=== PATIENT | female | born 1940 | race Caucasian/White ===

== ENCOUNTER 2020-01-09 17:48 | Outpatient (REF) | payer MEDICARE, SELFPAY | END 2020-01-09 17:49 | disposition home or self-care (01) | LOC: HO.LAB 17:48 | PROVIDERS: PCP Internal Medicine; Visit Provider Urology | DX: R35.0 Frequency of micturition (principal); Z13.9 Encounter for screening, unspecified | CPT/HCPCS: 87086 ==

== ENCOUNTER → 2020-01-11 13:23 | Outpatient (BNVA) | payer MEDICARE, SELFPAY | PROVIDERS: PCP Internal Medicine; Visit Provider Urology | DX: Z76.89 Persons encountering health services in other specified circumstances (principal) | CPT/HCPCS: 99212 ==

== ENCOUNTER → 2020-03-12 11:08 | Outpatient (BNVA) | payer MEDICARE, SELFPAY | PROVIDERS: PCP Internal Medicine; Visit Provider Urology | DX: R39.15 Urgency of urination (principal); N32.81 Overactive bladder | CPT/HCPCS: Q3014 ==

== ENCOUNTER → 2020-04-16 15:16 | Outpatient (BNVA) | payer MEDICARE, SELFPAY | PROVIDERS: PCP Internal Medicine; Visit Provider Urology | DX: N32.81 Overactive bladder (principal) | CPT/HCPCS: 52287; 81002; 99212; J0585 ==

== ENCOUNTER → 2020-04-25 14:00 | Outpatient (BNVA) | payer MEDICARE, SELFPAY | PROVIDERS: PCP Internal Medicine; Visit Provider Internal Medicine Cardiovascular Disease | DX: I48.91 Unspecified atrial fibrillation (principal) | CPT/HCPCS: 93005; 99212 ==

== ENCOUNTER → 2020-04-30 14:04 | Outpatient (BNVA) | payer MEDICARE, SELFPAY | PROVIDERS: PCP Internal Medicine; Visit Provider Urology | DX: Z13.89 Encounter for screening for other disorder (principal) | CPT/HCPCS: Q3014 ==

== ENCOUNTER 2020-05-10 16:36 | Outpatient (REF) | payer MEDICARE, SELFPAY ==
[2020-05-10 18:20] LABS: Alanine Aminotransferase 10 U/L (0-31); Alkaline Phosphatase 74 U/L (39-117); Anion Gap 12 (12-20); Aspartate Amino Transferase 22 U/L (5-31); Bilirubin Total 0.8 mg/dL (0.0-1.0); Blood Urea Nitrogen 19 mg/dL (9-16); Calcium 9.5 mg/dL (8.4-10.2); Carbon Dioxide 30 mmol/L (22-29); Chloride 104 mmol/L (96-108); Cholesterol 257 mg/dL; Estimated Glomerular Filt Rate > 60; Glucose Fasting 79 mg/dL (60-99); HDL Cholesterol 72 mg/dL; LDL Cholesterol Calculated 169 mg/dl; Potassium 4.4 mmol/L (3.3-5.1); Sodium 142 mmol/L (135-145); Total Protein 6.2 g/dL (6.5-8.0); Triglycerides 82 mg/dL
[2020-05-12 02:51] LABS: LDL Cholesterol Direct 161 mg/dL (<100)
== END 2020-05-10 16:37 | disposition home or self-care (01) ==
LOC: HO.LAB 16:36
PROVIDERS: PCP Internal Medicine; Visit Provider Internal Medicine
DX: E78.9 Disorder of lipoprotein metabolism, unspecified (principal); F09 Unspecified mental disorder due to known physiological condition; F41.8 Other specified anxiety disorders; K21.9 Gastro-esophageal reflux disease without esophagitis; M19.90 Unspecified osteoarthritis, unspecified site; Z91.09 Other allergy status, other than to drugs and biological substances
CPT/HCPCS: 36415; 80048; 80053; 80061; 83721

== ENCOUNTER → 2020-06-26 13:09 | Outpatient (BNVA) | payer MEDICARE, SELFPAY | PROVIDERS: PCP Internal Medicine; Visit Provider Internal Medicine Pulmonary Disease | DX: J45.40 Moderate persistent asthma, uncomplicated (principal); Z91.09 Other allergy status, other than to drugs and biological substances | CPT/HCPCS: 99212 ==

== ENCOUNTER 2020-08-01 16:44 | Outpatient (REF) | payer MEDICARE, SELFPAY ==
--- NOTE | ~2020-08-01 | XR_ITS ---
EXAMINATION: XR ELBOW, LEFT CLINICAL INFORMATION: Pain left elbow COMPARISON: None TECHNIQUE: Left elbow is imaged in 3 views. FINDINGS: There is no fracture, dislocation, or elbow capsular effusion. No destructive process or periostitis. No focal joint narrowing or erosive change. No epicondylar or olecranon spurring. XR/XR elbow LT min 3V IMPRESSION: Unremarkable left elbow.
== END 2020-08-01 16:45 | disposition home or self-care (01) ==
LOC: HO.HMGCX 16:44
PROVIDERS: PCP Internal Medicine; Visit Provider Hospitalist
DX: M25.522 Pain in left elbow (principal)
CPT/HCPCS: 73080

== ENCOUNTER → 2020-09-11 14:39 | Outpatient (BNVA) | payer MEDICARE, SELFPAY | PROVIDERS: PCP Internal Medicine; Referring Provider Internal Medicine; Visit Provider Internal Medicine Cardiovascular Disease | DX: R06.00 Dyspnea, unspecified (principal); I48.0 Paroxysmal atrial fibrillation; I42.9 Cardiomyopathy, unspecified; I89.0 Lymphedema, not elsewhere classified; Z79.01 Long term (current) use of anticoagulants | CPT/HCPCS: 99212 ==

== ENCOUNTER → 2020-10-02 09:31 | Outpatient (REF) | payer MEDICARE, SELFPAY ==
--- NOTE | ~2020-10-02 | NM_ITS ---
Lexiscan Myocardial perfusion study Indication: Shortness of breath, assess for coronary disease and ischemia Technique: The patient was brought in for a Lexiscan perfusion study on 10/02/2020 and was injected 0.4 mg of Lexiscan intravenously. Within a minute of this injection 35 mCi of sestamibi was given intravenously. Images were obtained using the SPECT gamma camera interlaced with the gating device. Images were obtained in supine position. Resting perfusion study was performed on 10/03/2020. Patient was administered 35 mCi of sestamibi intravenously at rest. Images were then obtained in supine position. Total DLP 112mGy-cm. Images were processed with the software and compared side to side in short axis, horizontal long axis and vertical long axis views. Findings: Raw acquisition was reviewed. The stress perfusion study showed mildly diminished tracer uptake in the basal to mid septum. There is improvement with CT attenuation correction. The gated study shows normal LV systolic function with calculated LVEF of > 70%. LV cavity is normal in size. The gated study shows normal wall thickening and contraction of segments. Resting study shows mildly diminished tracer uptake in the basal to mid septum that seems to improve with CT attenuation correction. Gating at rest reveals normal wall motion with ejection fraction at 53%. The findings are consistent with no reversible defects. Mild fixed defect in the basal to mid septum possibly artifactual. NY/NY cardiolite stress test Impression: 1. Myocardial perfusion imaging study shows no definitive evidence of any ischemia or infarction. 2. Gated LVEF is 69% during stress and 53% during rest. Correlate with echocardiogram. 3. Transient ischemic dilatation not present. EKG component of the test reported separately.
--- NOTE | 2020-10-02 09:00 | CA_ITS ---
Acquisition Time: 2020-10-02 10:01:19 Total Exercise Time: 00:02:00 Test Indications: SOB, R/O CAD Medications: Protocol: LEXISCAN Max HR: 108 BPM 76% of Pred: 142 BPM Max BP: 126/076 mmHG Max Work Load: 1.6 METS Pharmacological stress test with Lexiscan injection, while walking on treadmill, with fatigue and sob, no chest discomfort, without arrythmia, with normotensive response to injection, with nondiagnostic EKG for ischemia. Nuclear images pending. Test reviewed with Dr Hernandez. Referred By: Eran Butler Overread By: VENANCIO HSU
== END ==
LOC: HO.CARD 09:31
PROVIDERS: PCP Internal Medicine; Visit Provider Internal Medicine Cardiovascular Disease
DX: R06.00 Dyspnea, unspecified (principal)
CPT/HCPCS: 78452; 93017; A9500; J0280; J2785

== ENCOUNTER → 2020-10-22 14:10 | Outpatient (REF) | payer MEDICARE, SELFPAY ==
--- NOTE | 2020-10-22 14:10 | CA_ITS ---
Transthoracic Echocardiogram Patient (Last, First, Middle): Harshad TownsendMadelyn B Gender: Female Date of : 1940 Age: 79 Procedure Date: 10/22/2020 Procedure Type: Transthoracic Echocardiogram Location: OP Height: 170.18 cm Weight: 92.99 kg BSA: 2.04 m2 Heart Rate: bpm BP: 134 / 60 mmHg Ship Loader: Referring MD: Eran Butler MD Symptoms: I42.9 - Cardiomyopathy, unspecified Study Quality: Fair ECG Rhythm: Atrial Fibrillation Conclusions: - Normal left ventricular size and systolic function. - Diastolic function is normal for age. - Normal right ventricular cavity size and systolic function. Findings Left Ventricle Normal left ventricular size and systolic function. There is mildly increased left ventricular wall thickness. The visually estimated ejection fraction is between 55-60%. There is no evidence of regional wall motion abnormalities. Diastolic function is normal for age. Right Ventricle Normal right ventricular cavity size and systolic function. Atria The left atrium is normal in size. The right atrium is likely dilated. Aortic Valve Normal aortic valve structure and function. There is no aortic valve stenosis. There is trace (trivial) aortic valve regurgitation. Mitral Valve The mitral valve appears normal. There is trace mitral valve regurgitation. There is no mitral valve stenosis. Pulmonic Valve The pulmonic valve is likely normal. Tricuspid Valve Normal tricuspid valve structure and function. There is trace tricuspid valve regurgitation. Moderately elevated right atrial pressure. There is no evidence of pulmonary hypertension. Great Vessels There is mild dilatation of the ascending aorta measuring 3.30 cm. The visualized portions of the pulmonary artery and branches are normal. Venous The inferior vena cava is dilated and collapses greater than 50% with inspiration. Pericardium/Pleural There is no evidence of pericardial effusion. Measurements 2D Linear Measurements IVSd: 1.01 0.6-0.9/0.6-1.0 cm LVIDd: 3.25 3.9-5.3/4.2-5.9 cm LVIDd Index: 1.59 2.4-3.2/2.2-3.1 cm/m2 LVIDs: 2.23 2.0-3.6 cm LVPWd: 1.23 0.7-1.1 cm Ao Root: 3.50 2.1-3.5 cm LA Diam: 4.00 2.7-3.8/3.0-4.0 cm LAIDs Index: 1.96 1.5-2.3 cm/m2 LV Mass: 136.39 67-162/88-224 g LV Mass Index: 66.86 43-95/49-115 g/m2 LVOT Diam: 2.00 3.0+(-)1.3 cm Mitral Valve MV Pk E: 1.04 MV Decel Time: 117.00 E'Lateral: 14.70 E'Medial: 8.16 E/E' Med: 12.70 E/E' Lat: 7.10 PHT: 34.00 MVA PHT: 6.47 Decel [place]: 8.85 Aortic Valve AoV Pk Carlton: 1.31 AoV Mn [place]: 0.93 AoV VTI: 0.27 AoV Pk Grad: 7.00 Aov Mn Grad: 4.00 ANDREW Cont.VTI: 2.29 LVOT LVOT Pk [place]: 1.01 LVOT Mn [place]: 0.75 LVOT VTI: 0.20 LVOT Pk Grad: 4.00 LVOT Mn Grad: 3.00 LVOT Diam: 2.00 LVOT Area: 3.14 Diastolic Function MV Pk E: 1.04 E'Medial: 8.16 E/E' Med: 12.70 E' Laterial: 14.70 E/E' Lat: 7.10 Tricuspid Valve TR Pk Carlton: 2.45 TR Pk Grad: 24.00 RVSP: 32.00 Great Vessels Aorta Ao Root-2D: 3.50 2.0-3.7 cm Ao Asc: 3.30 2.1-3.4 cm Pulmonary Valve PV Pk Carlton: 1.17 Peak PV Grad: 5.00 Updated in Other Vendor System with Status of Final Eran Butler MD electronically signed on 10/23/2020 10:22:50 AM with status of Final
== END ==
LOC: HO.CARD 14:10
PROVIDERS: PCP Internal Medicine; Visit Provider Internal Medicine Cardiovascular Disease
DX: I42.9 Cardiomyopathy, unspecified (principal); R06.00 Dyspnea, unspecified
CPT/HCPCS: 93306

== ENCOUNTER → 2020-11-27 14:44 | Outpatient (BNVA) | payer MEDICARE, SELFPAY | PROVIDERS: PCP Internal Medicine; Referring Provider Internal Medicine; Visit Provider Nurse Practitioner Family | DX: I48.91 Unspecified atrial fibrillation (principal); R06.00 Dyspnea, unspecified | CPT/HCPCS: 99212 ==

== ENCOUNTER 2020-12-03 12:38 | Outpatient (REF) | payer MEDICARE, SELFPAY ==
[2020-12-03 13:01] LABS: MANUAL DIFF FLAG NO
[2020-12-03 13:31] LABS: Basophils Percent Auto 0.7 % (0-2); Eosinophils Absolute Auto 0.2 X10*3/uL (0.0-0.4); Eosinophils Percent Auto 3.6 % (0-4); Hematocrit 42.4 % (37-47); Hemoglobin 13.6 g/dl (12.0-16.0); Imm Gran Abs Auto 0.02 X10*3/uL (0.00-0.03); Imm Gran Pct Auto 0.3 % (0.0-0.4); Lymphocytes Absolute Auto 1.3 X10*3/uL (1.2-4.9); Lymphocytes Percent Auto 21.3 % (20-40); Mean Corpuscular HGB Conc 32.1 g/dl (31.0-35.0); Mean Corpuscular Hemoglobin 31.7 pg (27.0-33.0); Mean Corpuscular Volume 98.8 fL (80-98); Mean Platelet Volume 10.8 fL (9.4-12.3); Monocytes Absolute Auto 0.8 X10*3/uL (0.1-1.2); Monocytes Percent Auto 12.2 % (2-11); Neutrophils Absolute Auto 3.8 X10*3/uL (2.0-8.3); Neutrophils Percent Auto 61.9 % (45-73); Platelet Count 256 X10*3/uL (160-400); Red Blood Count 4.29 X10*6/uL (4.20-5.50); Red Cell Distribution Width 14.6 % (11.0-16.0); White Blood Count 6.2 X10*3/uL (4.8-10.8)
[2020-12-03 14:01] LABS: Alanine Aminotransferase 13 U/L (0-31); Alkaline Phosphatase 79 U/L (39-117); Anion Gap 10 (12-20); Aspartate Amino Transferase 24 U/L (5-31); Bilirubin Total 0.6 mg/dL (0.0-1.0); Blood Urea Nitrogen 14 mg/dL (9-16); Calcium 9.9 mg/dL (8.4-10.2); Carbon Dioxide 31 mmol/L (22-29); Chloride 106 mmol/L (96-108); Estimated Glomerular Filt Rate > 60; Glucose Random 104 mg/dL (60-115); Potassium 4.6 mmol/L (3.3-5.1); Sodium 142 mmol/L (135-145); Total Protein 6.6 g/dL (6.5-8.0)
== END 2020-12-03 12:39 | disposition home or self-care (01) ==
LOC: HO.LAB 12:38
PROVIDERS: PCP Internal Medicine; Visit Provider Internal Medicine
DX: E66.9 Obesity, unspecified (principal); F41.8 Other specified anxiety disorders; E78.9 Disorder of lipoprotein metabolism, unspecified; M19.90 Unspecified osteoarthritis, unspecified site; Z91.09 Other allergy status, other than to drugs and biological substances
CPT/HCPCS: 36415; 80053; 85025

== ENCOUNTER 2020-12-16 08:44 | Outpatient (REF) | payer MEDICARE, SELFPAY | END 2020-12-16 08:45 | disposition home or self-care (01) | LOC: HO.LAB 08:44 | PROVIDERS: PCP Internal Medicine | DX: R39.15 Urgency of urination (principal); R35.0 Frequency of micturition; N39.0 Urinary tract infection, site not specified | CPT/HCPCS: 87086; 99212 ==

== ENCOUNTER → 2021-01-28 15:02 | Outpatient (BNVA) | payer MEDICARE, SELFPAY | PROVIDERS: PCP Internal Medicine; Visit Provider Urology | DX: N32.81 Overactive bladder (principal) | CPT/HCPCS: 52287; 99212 ==

== ENCOUNTER → 2021-02-12 11:04 | Outpatient (BNVA) | payer MEDICARE, SELFPAY | PROVIDERS: PCP Internal Medicine; Visit Provider Urology | DX: N32.81 Overactive bladder (principal) | CPT/HCPCS: Q3014 ==

== ENCOUNTER 2021-04-29 12:52 | Outpatient (REF) | payer MEDICARE, SELFPAY ==
--- NOTE | ~2021-04-29 | MM_ITS ---
EXAMINATION: MM SCREENING DIGITAL BREAST TOMOSYNTHESIS, BILATERAL CLINICAL INFORMATION: Screening. Asymptomatic. The lifetime risk of breast cancer based on the Tyrer-Cuzick Model is 3%. COMPARISON: Mammography: 04/18/2018, 04/05/2017, 02/07/2016 TECHNIQUE: Digital breast tomosynthesis is performed in both the craniocaudal and mediolateral oblique views along with computer-aided detection (CAD). Synthesized 2D images are generated from the tomosynthesis. FINDINGS: There are scattered areas of fibroglandular density (ACR BI-RADS breast composition Category b). There are no significant masses, abnormal calcifications, or other abnormalities. Parenchymal pattern is similar to prior studies. Again, there are scattered bilateral benign round and some ductal secretory calcifications. The axilla and skin contours are unremarkable. There are no significant changes. MM/MM tomosynthesis screening BI IMPRESSION: No mammographic evidence of malignancy. ASSESSMENT: BI-RADS 1: Negative RECOMMENDATION: Routine annual mammography screening. This patient's information was entered into a reminder system with a target due date for their next mammogram.
== END 2021-04-29 12:53 | disposition home or self-care (01) ==
LOC: HO.MAMMO 12:52
PROVIDERS: PCP Internal Medicine; Visit Provider Internal Medicine
DX: Z12.31 Encounter for screening mammogram for malignant neoplasm of breast (principal)
CPT/HCPCS: 77063; 77067

== ENCOUNTER → 2021-05-01 13:43 | Outpatient (BNVA) | payer MEDICARE, SELFPAY | PROVIDERS: PCP Internal Medicine; Referring Provider Internal Medicine; Visit Provider Nurse Practitioner Family | DX: I48.91 Unspecified atrial fibrillation (principal); R06.00 Dyspnea, unspecified | CPT/HCPCS: 99212 ==

== ENCOUNTER → 2021-05-06 08:32 | Outpatient (REF) | payer MEDICARE, SELFPAY ==
--- NOTE | 2021-05-06 08:35 | HM_ITS ---
* Total monitoring time 3 days and 9 hours. * Underlying rhythm is atrial fibrillation. Average rate 98/Min; range 65 to 172/Min. * About 31% of the time, rate > 100/Min. * No significant pauses. * Rare ventricular ectopy with minimal burden. * No clear patient symptoms described. * Overall, less than optimal rate control of atrial fibrillation. MTDD
== END ==
LOC: HO.CARD 08:32
PROVIDERS: PCP Internal Medicine; Visit Provider Nurse Practitioner Family
DX: I48.91 Unspecified atrial fibrillation (principal)
CPT/HCPCS: 93242

== ENCOUNTER → 2021-05-29 09:21 | Outpatient (BNVA) | payer MEDICARE, SELFPAY | PROVIDERS: PCP Internal Medicine; Visit Provider Urology | DX: N32.81 Overactive bladder (principal) | CPT/HCPCS: 52000; 52287; J0585 ==

== ENCOUNTER → 2021-08-29 13:29 | Outpatient (BNVA) | payer MEDICARE, SELFPAY | PROVIDERS: PCP Internal Medicine; Visit Provider Urology | DX: N32.81 Overactive bladder (principal) | CPT/HCPCS: Q3014 ==

== ENCOUNTER 2021-09-08 13:57 | Inpatient (IN) | payer MEDICARE, SELFPAY ==
[2021-09-08] VITALS (15 sets, daily range): BP systolic 121–158; BP diastolic 56–105; PULSE 101–130; RESP 13–20; TEMP 36.1–36.8; O2SAT 94–100; BMI 32.8; BMI 33.7
--- NOTE | 2021-09-08 14:31 | ECG_ITS ---
Test Reason : abdominal pain Blood Pressure : / mmHG Vent. Rate : 123 BPM Atrial Rate : 000 BPM P-R Int : 000 ms QRS Dur : 070 ms QT Int : 276 ms P-R-T Axes : 000 011 263 degrees QTc Int : 395 ms Atrial fibrillation with rapid ventricular response Nonspecific T wave abnormality Abnormal ECG When compared to the previous EKG of Afib present Referred By: Bell Casper Electronically Signed By:Eran Butler
--- NOTE | 2021-09-08 14:35 | ED.GIBLEED ---
HPI - GI Bleed General Chief complaint: GI Bleed Stated complaint: VOMITING Time Seen by Provider: 09/08/21 14:17 Source: patient Mode of arrival: ambulatory Limitations: no limitations History of Present Illness HPI Narrative: Patient comes to the emergency room complaining of vomiting blood and rectal bleeding. Patient states that yesterday she was in her normal state of health. This morning around 06:00, she woke up, went to the bathroom to have a bowel movement, noticed that she had blood in the stool, also vomited blood at the same time. Patient states that she was too weak to stand up and go back to her bedroom. Patient states that she states seated in the toilet for almost 3 hours, both because she had multiple episodes of vomiting and bloody bowel movements and also she was too weak to sit up. Patient denies abdominal pain. Patient denies URI or UTI symptoms. Patient is on Xarelto for atrial fibrillation. Related Data Home Medications Medication Instructions Recorded Confirmed omeprazole 40 mg capsule,delayed 40 mg PO DAILY 11/20/19 05/01/21 release donepezil 10 mg tablet 10 mg PO DAILY 11/27/20 05/01/21 Previous Rx's Medication Instructions Recorded citalopram 20 mg tablet 20 mg PO DAILY #90 tabs 02/26/20 albuterol sulfate 90 mcg/actuation 2 puff inhalation Q4-6H PRN 06/26/20 aerosol inhaler (Ventolin HFA) bronchospasm 90 days #3 ea fluticasone propionate 44 2 puff inhalation BID 90 days #3 ea 06/26/20 mcg/actuation HFA aerosol inhaler rivaroxaban 20 mg tablet (Xarelto) 20 mg PO DAILY 90 days #90 tabs 10/08/20 amoxicillin 500 mg-potassium 1 tab PO BID 5 days #10 tabs 03/14/21 clavulanate 125 mg tablet (Augmentin) gemfibrozil 600 mg tablet 600 mg PO DAILY #90 tabs 04/15/21 metoprolol succinate 50 mg 75 mg PO DAILY 90 days #135 tabs 05/26/21 tablet,extended release 24 hr fluticasone propionate 50 1 spray intranasal DAILY 30 days 08/11/21 mcg/actuation nasal #16 grams spray,suspension sulfamethoxazole 800 1 tab PO BID 5 days #10 tabs 07/08/22 mg-trimethoprim 160 mg tablet (Bactrim DS) Allergies Allergy/AdvReac Type Severity Reaction Status Date / Time lorazepam Allergy Unknown unknown Verified 08/29/21 13:30 pantoprazole Allergy Unknown NAUSEA Verified 08/29/21 13:30 amoxicillin [AMOXICILLIN] AdvReac Intermediate NAUSEA/VOMI Verified 08/29/21 13:30 TING Review of Systems Review of Systems: Constitutional : No Weight loss, No Fever, No Chills, No Night Sweats, No Fatigue, No Malaise ENT/Mouth : No Hearing loss, No Ear Pain, No Nasal Congestion, No Sinus Pain, No Hoarseness, No sore throat, No Rhinorrhea, No Swallowing Difficulty Eyes: No Eye Pain, No Swelling, No Redness, No Foreign Body, No Discharge, No Vision Changes Cardiovascular : No Chest Pain, No SOB, No Dyspnea on Exertion, No Orthopnea, No Edema, No Palpitations Respiratory : No Cough, No Sputum, No Wheezing, No Smoke Exposure, No Dyspnea Gastrointestinal : Complaining of nausea, vomiting blood, bloody bowel movements, abdominal cramping no significant pain. Genitourinary : no irregular bleeding, No Dysuria, No Urinary Frequency, No Hematuria, No Urinary Incontinence, No Urgency, No Flank Pain, No Urinary Flow Changes, No Hesitancy Musculoskeletal : No joint pain, No Myalgias, No Joint Swelling Skin : No Skin Lesions, No rash Neuro : No Weakness, No Numbness, No Paresthesias, No Loss of Consciousness, complaining of dizziness and lightheadedness, no headache Psych : No Anxiety/Panic, No Depression, No SI/HI/AH/VH, No Social Issues, Heme/Lymph: No Bruising, No Bleeding,No Lymphadenopathy Endocrine : No Polyuria, No Polydipsia, No Temperature Intolerance [facility] Past Medical History Medical History Atrial fibrillation Moderate persistent asthma Family History Family History Father No problems noted. Mother Cerebral brain hemorrhage Social History Social History Housing: House Alcohol intake: current Alcohol intake frequency: holidays/special occasions only Patient Tobacco Use Status: Never used Tobacco e-Cigarette/Vaping Use: Never Used Second Hand Smoke Exposure: Yes Advance Directives: No Advance Directives Information Provided: No Current occupational status: retired Physical Exam Vital Signs: Vital Signs: Last Vital Signs Temp 97.5 F 09/08/21 16:39 Pulse 121 H 09/08/21 16:39 Resp 16 09/08/21 16:39 BP 141/82 H 09/08/21 16:39 Pulse Ox 95 09/08/21 14:42 O2 Del Method 09/08/21 14:42 BMI result Body Mass Index 32.8 Const: Other: Appearance: Alert. Oriented X3. No acute distress. Eyes: Pupils equal, round and reactive to light. ENT: Pharynx normal. Neck: Normal inspection. Neck supple. No lymph nodes noted. No crepitus CVS: Normal heart rate and rhythm. Pulses normal. Normal S1 and S2 Respiratory: No respiratory distress. Breath sounds normal. No Wheezing. No rales Abdomen: Soft and nontender. No rigidity. No distention. Digital rectal exam shows maroon-colored stool Skin: Skin warm and dry. Patient is pale. Normal skin turgor. Extremities: +3 pitting edema, patient has chronic lymphedema bilaterally Neuro: Oriented X 3. No motor deficit. No sensory deficit. Moving all extremities. No slurred speech. CN 2 through 12 grossly intact Psych: calm, cooperative, normal affect Course Course Course Narrative: All of patient's labs are pending. I discussed with the patient the benefits versus risks of blood transfusion. Patient states that if the occasion falls worth, she is willing to receive blood. Patient signed the consent for blood transfusion. Given the severity of the GI bleed, we will go ahead and start Kcentra, 3 units of blood. Also, Dr. Hernández recommends to start 2 units of FFP, and IV vitamin K 10 mg. Patient also received octreotide, and pantoprazole. Patient will likely go to the endoscopy suite tonight Patient's blood pressure remains stable, 141/82, pulse 121. Patient being admitted. MDM - GI Bleed Lab Data Result diagrams: 09/08/21 14:48 09/08/21 14:47 Labs: Lab Results 09/08/21 09/08/21 09/08/21 Range/Units 14:46 14:46 14:47 WBC (4.8-10.8) X10*3/uL RBC (4.20-5.50) X10*6/uL Hgb (12.0-16.0) g/dl Hct (37.0-47.0) % MCV (80.0-98.0) fL MCH (27.0-33.0) pg MCHC (31.0-35.0) g/dl RDW (11.0-16.0) % Plt Count (160-400) X10*3/uL MPV (9.4-12.3) fL Immature Gran % (Auto) (0.0-0.4) % Neut % (Auto) (45-73) % Lymph % (Auto) (20-40) % [place] % (Auto) (2-11) % Eos % (Auto) (0-4) % Baso % (Auto) (0-2) % Lymph # (Auto) (1.2-4.9) X10*3/uL [place] # (Auto) (0.1-1.2) X10*3/uL Eos # (Auto) (0.0-0.4) X10*3/uL Baso # (Auto) (0.0-0.2) X10*3/uL Abs Immat Gran (auto) (0.00-0.03) X10*3/uL Absolute Neuts (auto) (2.0-8.3) x10*3/uL Absolute Nucleated RBC (0.0-0.012) X10*3/uL Nucleated RBC % (auto) (0.0-0.2) /100WBC Smear Tech's Comments PT (10.0-13.1) SEC INR (0.9-1.1) Sodium 139 (135-145) mmol/L Potassium 4.4 (3.3-5.1) mmol/L Chloride 107 (96-108) mmol/L Carbon Dioxide 24 (22-29) mmol/L Anion Gap 12 (12-20) BUN 53 H (9-16) mg/dL Creatinine 0.84 (0.5-1.4) mg/dL Estim Creat Clear Calc 64.3 Estimated GFR > 60 Random Glucose 136 H (60-115) mg/dL Calcium 8.8 D (8.4-10.2) mg/dL Magnesium 1.7 (1.6-2.6) mg/dL Total Bilirubin 0.4 (0.0-1.0) mg/dL Direct Bilirubin 0.2 (0.0-0.5) mg/dL AST 20 (5-31) U/L ALT 12 (0-31) U/L Alkaline Phosphatase 64 (39-117) U/L Total Creatine Kinase (26-140) U/L Troponin I High Sens < 3.5 (<3.5-17.0) ng/L Total Protein 5.5 L (6.5-8.0) g/dL Albumin 3.7 (3.5-5.0) g/dL Lipase 7 L (8-78) U/L Stool Occult Blood (NEGATIVE) COVID-19 ([place]) (Negative) COVID-19 Clin Com Blood Type A Negative Antibody Screen NEGATIVE Crossmatch See Detail 09/08/21 09/08/21 09/08/21 Range/Units 14:48 14:48 14:48 WBC 8.3 (4.8-10.8) X10*3/uL RBC 2.39 L (4.20-5.50) X10*6/uL Hgb 6.8 L* (12.0-16.0) g/dl Hct 21.7 L (37.0-47.0) % MCV 90.8 (80.0-98.0) fL MCH 28.5 (27.0-33.0) pg MCHC 31.3 (31.0-35.0) g/dl RDW 14.2 (11.0-16.0) % Plt Count 275 (160-400) X10*3/uL MPV 10.5 (9.4-12.3) fL Immature Gran % (Auto) 0.6 H (0.0-0.4) % Neut % (Auto) 90.5 H (45-73) % Lymph % (Auto) 6.5 L (20-40) % [place] % (Auto) 2.3 (2-11) % Eos % (Auto) 0.0 (0-4) % Baso % (Auto) 0.1 (0-2) % Lymph # (Auto) 0.5 L (1.2-4.9) X10*3/uL [place] # (Auto) 0.2 (0.1-1.2) X10*3/uL Eos # (Auto) 0.0 (0.0-0.4) X10*3/uL Baso # (Auto) 0.0 (0.0-0.2) X10*3/uL Abs Immat Gran (auto) 0.05 H (0.00-0.03) X10*3/uL Absolute Neuts (auto) 7.5 (2.0-8.3) x10*3/uL Absolute Nucleated RBC 0.000 (0.0-0.012) X10*3/uL Nucleated RBC % (auto) 0.0 (0.0-0.2) /100WBC Smear Tech's Comments VERIFIED PT 19.3 H (10.0-13.1) SEC INR 1.6 H (0.9-1.1) Sodium (135-145) mmol/L Potassium (3.3-5.1) mmol/L Chloride (96-108) mmol/L Carbon Dioxide (22-29) mmol/L Anion Gap (12-20) BUN (9-16) mg/dL Creatinine (0.5-1.4) mg/dL Estim Creat Clear Calc Estimated GFR Random Glucose (60-115) mg/dL Calcium (8.4-10.2) mg/dL Magnesium (1.6-2.6) mg/dL Total Bilirubin (0.0-1.0) mg/dL Direct Bilirubin (0.0-0.5) mg/dL AST (5-31) U/L ALT (0-31) U/L Alkaline Phosphatase (39-117) U/L Total Creatine Kinase (26-140) U/L Troponin I High Sens (<3.5-17.0) ng/L Total Protein (6.5-8.0) g/dL Albumin (3.5-5.0) g/dL Lipase (8-78) U/L Stool Occult Blood (NEGATIVE) COVID-19 ([place]) Negative (Negative) COVID-19 Clin Com See Note Blood Type Antibody Screen Crossmatch 09/08/21 09/08/21 Range/Units 14:48 14:51 WBC (4.8-10.8) X10*3/uL RBC (4.20-5.50) X10*6/uL Hgb (12.0-16.0) g/dl Hct (37.0-47.0) % MCV (80.0-98.0) fL MCH (27.0-33.0) pg MCHC (31.0-35.0) g/dl RDW (11.0-16.0) % Plt Count (160-400) X10*3/uL MPV (9.4-12.3) fL Immature Gran % (Auto) (0.0-0.4) % Neut % (Auto) (45-73) % Lymph % (Auto) (20-40) % [place] % (Auto) (2-11) % Eos % (Auto) (0-4) % Baso % (Auto) (0-2) % Lymph # (Auto) (1.2-4.9) X10*3/uL [place] # (Auto) (0.1-1.2) X10*3/uL Eos # (Auto) (0.0-0.4) X10*3/uL Baso # (Auto) (0.0-0.2) X10*3/uL Abs Immat Gran (auto) (0.00-0.03) X10*3/uL Absolute Neuts (auto) (2.0-8.3) x10*3/uL Absolute Nucleated RBC (0.0-0.012) X10*3/uL Nucleated RBC % (auto) (0.0-0.2) /100WBC Smear Tech's Comments PT (10.0-13.1) SEC INR (0.9-1.1) Sodium (135-145) mmol/L Potassium (3.3-5.1) mmol/L Chloride (96-108) mmol/L Carbon Dioxide (22-29) mmol/L Anion Gap (12-20) BUN (9-16) mg/dL Creatinine (0.5-1.4) mg/dL Estim Creat Clear Calc Estimated GFR Random Glucose (60-115) mg/dL Calcium (8.4-10.2) mg/dL Magnesium (1.6-2.6) mg/dL Total Bilirubin (0.0-1.0) mg/dL Direct Bilirubin (0.0-0.5) mg/dL AST (5-31) U/L ALT (0-31) U/L Alkaline Phosphatase (39-117) U/L Total Creatine Kinase 190 H (26-140) U/L Troponin I High Sens (<3.5-17.0) ng/L Total Protein (6.5-8.0) g/dL Albumin (3.5-5.0) g/dL Lipase (8-78) U/L Stool Occult Blood POSITIVE (NEGATIVE) COVID-19 ([place]) (Negative) COVID-19 Clin Com Blood Type Antibody Screen Crossmatch Critical Care Time Critical Care Time Critical Care Time: Yes Total Critical Care Time: 60 Attestation: I have personally provided critical care time. Time includes review of lab data, radiology results, discussion with consultants, and monitoring for potential decompensation. Intervention performed as documented. Discharge Plan Discharge Clinical Impression: Acute GI bleeding Prescriptions: No Action citalopram 20 mg tablet 20 mg PO DAILY Qty: 90 0RF Xarelto 20 mg tablet 20 mg PO DAILY 90 Days Qty: 90 3RF gemfibrozil 600 mg tablet 600 mg PO DAILY Qty: 90 1RF metoprolol succinate 50 mg tablet extended release 24 hr 75 mg PO DAILY 90 Days Qty: 135 3RF fluticasone propionate 50 mcg/actuation spray,suspension 1 spray intranasal DAILY 30 Days Qty: 16 2RF sulfamethoxazole-trimethoprim [Bactrim DS] 800-160 mg tablet 1 tab PO BID 5 Days Qty: 10 0RF Rx Instructions: start two days before procedure, the day of procedure, and two days after procedure. donepezil 10 mg tablet 10 mg PO DAILY amoxicillin-pot clavulanate [Augmentin] 500-125 mg tablet 1 tab PO BID 5 Days Qty: 10 0RF albuterol sulfate [Ventolin HFA] 90 mcg/actuation HFA aerosol inhaler 2 puff inhalation Q4-6H PRN (Reason: bronchospasm) 90 Days Qty: 3 4RF fluticasone propionate 44 mcg/actuation HFA aerosol inhaler 2 puff inhalation BID 90 Days Qty: 3 4RF omeprazole 40 mg capsule,delayed release(DR/EC) 40 mg PO DAILY
[2021-09-08 15:04] LABS: Basophils Percent Auto 0.1 % (0-2); Hematocrit 21.7 % (37.0-47.0); Imm Gran Abs Auto 0.05 X10*3/uL (0.00-0.03); Imm Gran Pct Auto 0.6 % (0.0-0.4); Lymphocytes Absolute Auto 0.5 X10*3/uL (1.2-4.9); Lymphocytes Percent Auto 6.5 % (20-40); MANUAL DIFF FLAG SCAN; Mean Corpuscular HGB Conc 31.3 g/dl (31.0-35.0); Mean Corpuscular Hemoglobin 28.5 pg (27.0-33.0); Mean Corpuscular Volume 90.8 fL (80.0-98.0); Mean Platelet Volume 10.5 fL (9.4-12.3); Monocytes Absolute Auto 0.2 X10*3/uL (0.1-1.2); Monocytes Percent Auto 2.3 % (2-11); Neutrophils Absolute Auto 7.5 x10*3/uL (2.0-8.3); Neutrophils Percent Auto 90.5 % (45-73); OBS Int Ctl Valid YES; Platelet Count 275 X10*3/uL (160-400); Red Blood Count 2.39 X10*6/uL (4.20-5.50); Red Cell Distribution Width 14.2 % (11.0-16.0); SCAN SMEAR FLAG 1; White Blood Count 8.3 X10*3/uL (4.8-10.8)
[2021-09-08 15:07] LABS: Hemoglobin 6.8 g/dl (12.0-16.0)
[2021-09-08 15:10] LABS: INTERNATIONAL NORM RATIO 1.6 (0.9-1.1); Prothrombin Time 19.3 SEC (10.0-13.1)
[2021-09-08 15:11] LABS: OBS1 POSITIVE (NEGATIVE)
[2021-09-08 15:15] LABS: Alanine Aminotransferase 12 U/L (0-31); Albumin Level 3.7 g/dL (3.5-5.0); Alkaline Phosphatase 64 U/L (39-117); Anion Gap 12 (12-20); Aspartate Amino Transferase 20 U/L (5-31); Bilirubin Direct 0.2 mg/dL (0.0-0.5); Bilirubin Total 0.4 mg/dL (0.0-1.0); Blood Urea Nitrogen 53 mg/dL (9-16); Calcium 8.8 mg/dL (8.4-10.2); Carbon Dioxide 24 mmol/L (22-29); Chloride 107 mmol/L (96-108); Creatinine Clr Calc Pharmacy 64.3; Estimated Glomerular Filt Rate > 60; Glucose Random 136 mg/dL (60-115); Lipase 7 U/L (8-78); Magnesium 1.7 mg/dL (1.6-2.6); Potassium 4.4 mmol/L (3.3-5.1); Sodium 139 mmol/L (135-145); Total Protein 5.5 g/dL (6.5-8.0)
[2021-09-08 15:16] LABS: COVID-19 Test Negative (Negative)
[2021-09-08] MEDS: Pantoprazole Sodium 40 MG/10 ML VIAL 80 MG IVPUSH (15:17)
[2021-09-08] MEDS: ondansetron HCL 4 MG/2 ML VIAL IVPUSH (15:17)
[2021-09-08 15:18] LABS: Troponin-I High Sensitivity < 3.5 ng/L (<3.5-17.0)
[2021-09-08] MEDS: 0.9 % Sodium Chloride 1,000 ML 999 ML IVCONT (15:18)
[2021-09-08] MEDS: Octreotide Acetate 100 MCG/ML AMPUL 50 MCG IVPUSH (15:18)
[2021-09-08 15:43] LABS: SLIDE REVIEW VERIFIED
[2021-09-08] MEDS: Hum Prothrombin Cplx(PCC)4Fact 2,500 UNIT in Container,Empty 0 ML 480 UNIT IV (15:50)
[2021-09-08] MEDS: Phytonadione (Vit K1) 10 MG in 0.9 % Sodium Chloride 50 ML 51 MG IV (16:13)
[2021-09-08] MEDS: Prochlorperazine Edisylate 10 MG/2 ML VIAL IVPUSH (16:23)
--- NOTE | 2021-09-08 16:42 | PM.EVENT ---
Event Note Date of Service: 09/08/21 Event Note: Imp: 80 yo female on Xarelto for A.fib presenting with hematemesis and melena since early this morning. Prior to this she was not having any particular GI complaints and was feeling well. She is on chronic omeprazole in regard to a history of GERD and previous duodenal ulcer, although without GI bleeding. She uses only occasional Aleve. She denies any other Aspirin nor NSAID use, smoking nor significant EtOH use. Her Hgb was 6.8 on arrival. Her PT was 19 and her BUN was 53. Diff dx: UGI bleed due to ulcer disease, erosive gastritis, esophagitis, Dieulafoy lesion, or AVM's. Rec: Kcentra for attempted reversal of Xarelto, Vit K & FFP for elevated PT/INR, PRBC's, IV PPI, NPO, serial Hgb, and F/U labs. Upper endoscopy with MAC once stabilized. Full consent obtained from her for this, including risks of bleeding and perforation. She was comfortable with this plan. Thanks
--- NOTE | 2021-09-08 16:53 | MHC.SHP ---
Pre-Procedural Eval Section A Date of Service: 09/08/21 The patient is an INPATIENT: Yes The History & Physical has been completed within 30 days and I have reviewed it.: Yes Section B Chief Complaint: VOMITING Allergies: Allergies Allergy/AdvReac Type Severity Reaction Status Date / Time lorazepam Allergy Unknown unknown Verified 08/29/21 13:30 pantoprazole Allergy Unknown NAUSEA Verified 08/29/21 13:30 amoxicillin [AMOXICILLIN] AdvReac Intermediate NAUSEA/VOMI Verified 08/29/21 13:30 TING Plan I have reviewed the history and physical and performed a pertinent physical examination on my patient. No changes have occurred unless specified.
--- NOTE | 2021-09-08 17:00 | PC.NURSE ---
PT TOLERATING TRANSFUSION WELL. DENIES DIZZINESS, SOB, CP AT REST. ALSO DENYING ABD PAIN. AFIB ON MONITOR BETWEEN 104- 125 BPM. VS OTHERWISE STABLE.
--- NOTE | 2021-09-08 17:25 | P.HPHOSP_ITS ---
History of Present Illness Date of Service: 09/08/21 Chief Complaint: rectal bleed, coffee ground emesis 80 yo female with chroni AFIB on Xarelto who has been in her usual until around 6 AM when she started having bouts of sergei and h hematemesis, she felt well yesterday, she no abdominal pain, she takes no NSAID or steroid, no history of anemia. She was noted to have hemoglobin on 6.8, tachycardic but no h ypOtension. She is given Kcentra, Vit K and FFP, RBC, IV PPI, IVF and is being prep for EGD today. Review of Systems Review of Systems: Gen: no fever Resp: no sob, no cough CV: no chest, no BULL, no leg edema GI: + n/v, no abd pain Neuro: No confusion Yes all other systems are reviewed and are negative [facility] Medical History Chronic a-fib Moderate persistent asthma Family History Father No problems noted. Mother Cerebral brain hemorrhage Social History Household Members: None Housing: House Do you presently have visiting nurse or other home services: No Alcohol intake: current Alcohol intake frequency: a few times a month Patient Tobacco Use Status: Never used Tobacco e-Cigarette/Vaping Use: Never Used Second Hand Smoke Exposure: Yes Current occupational status: retired Meds Allergies Allergy/AdvReac Type Severity Reaction Status Date / Time lorazepam Allergy Unknown unknown Verified 08/29/21 13:30 pantoprazole Allergy Unknown NAUSEA Verified 08/29/21 13:30 amoxicillin [AMOXICILLIN] AdvReac Intermediate NAUSEA/VOMI Verified 08/29/21 13:30 TING Active Medications: Current Medications Pantoprazole Sodium 80 mg/ (Sodium Chloride) 100 mls @ 10 mls/hr IV .Q10H [facility] Pharmacy Consult (Consult Rx Perform Med Rec) 1 each MISCELLANE ONCE PRN PRN Reason: Consult order Home Medications Medication Instructions Recorded Confirmed Last Taken Type omeprazole 40 mg capsule,delayed 40 mg PO DAILY 11/20/19 09/08/21 09/07/21 History release donepezil 10 mg tablet 10 mg PO DAILY 11/27/20 09/08/21 09/07/21 History Tumeric 1,000 mg PO DAILY 09/08/21 09/08/21 Unknown History coQ10 (ubiquinol) 200 mg capsule 200 mg PO DAILY 09/08/21 09/08/21 Unknown History cod liver oil 1 cap PO DAILY 09/08/21 09/08/21 Unknown History glucosamine sulfate 500 mg tablet 500 mg PO DAILY 09/08/21 09/08/21 Unknown His tory (Glucosamine) Physical Exam Vital Signs and Narrative: Vital Signs: Last Vital Signs Temp 97.6 F 09/08/21 16:58 Pulse 107 H 09/08/21 16:58 Resp 20 09/08/21 16:58 BP 134/79 09/08/21 16:58 Pulse Ox 95 09/08/21 14:42 O2 Del Method 09/08/21 14:42 BMI result Body Mass Index 32.8 Const: Other: Constitutional: Alert, in no distress Mental Status: Oriented to person, place and time. Eyes: Pupils are equal, round and reactive to light. Ear, Nose and Throat: Oropharynx clear, mucous membranes moist. Ears and nose without eformities. Trachea midline. Respiratory: Clear to auscultation. No wheezing, rales or rhonchi. Cardiovascular: S1 S2 irhregular, tachycardic. No murmurs, rubs or gallops Gastrointestinal: Abdomen soft, non-tender, non-distended. Normal bowel sounds.? Neurologic: Cranial nerves II-XII grossly intact. No focal neurological deficits. Moves all extremities spontaneously.? Skin: No rashes or lesions.? Musculoskeletal: No cyanosis or clubbing. Psychiatric: Normal mood and affect? Results Labs CBC and Chem 7: 09/09/21 08:33 09/09/21 04:59 Labs: Laboratory Results - last 24 hr 09/08/21 09/08/21 09/08/21 14:46 14:46 14:47 MCV MCH MCHC RDW Plt Count MPV Immature Gran % (Auto) Neut % (Auto) Lymph % (Auto) [place] % (Auto) Eos % (Auto) Baso % (Auto) Lymph # (Auto) [place] # (Auto) Eos # (Auto) Baso # (Auto) Abs Immat Gran (auto) Absolute Neuts (auto) Absolute Nucleated RBC Nucleated RBC % (auto) Smear Tech's Comments PT INR Anion Gap 12 Estim Creat Clear Calc 64.3 Estimated GFR > 60 Random Glucose 136 H Calcium 8.8 D Magnesium 1.7 Total Bilirubin 0.4 Direct Bilirubin 0.2 AST 20 ALT 12 Alkaline Phosphatase 64 Total Creatine Kinase Troponin I High Sens < 3.5 Total Protein 5.5 L Albumin 3.7 Lipase 7 L Stool Occult Blood COVID-19 ([place]) COVID-19 Clin Com Blood Type A Negative Antibody Screen NEGATIVE Crossmatch See Detail 09/08/21 09/08/21 09/08/21 14:48 14:48 14:48 MCV 90.8 MCH 28.5 MCHC 31.3 RDW 14.2 Plt Count 275 MPV 10.5 Immature Gran % (Auto) 0.6 H Neut % (Auto) 90.5 H Lymph % (Auto) 6.5 L [place] % (Auto) 2.3 Eos % (Auto) 0.0 Baso % (Auto) 0.1 Lymph # (Auto) 0.5 L [place] # (Auto) 0.2 Eos # (Auto) 0.0 Baso # (Auto) 0.0 Abs Immat Gran (auto) 0.05 H Absolute Neuts (auto) 7.5 Absolute Nucleated RBC 0.000 Nucleated RBC % (auto) 0.0 Smear Tech's Comments VERIFIED PT 19.3 H INR 1.6 H Anion Gap Estim Creat Clear Calc Estimated GFR Random Glucose Calcium Magnesium Total Bilirubin Direct Bilirubin AST ALT Alkaline Phosphatase Total Creatine Kinase Troponin I High Sens Total Protein Albumin Lipase Stool Occult Blood COVID-19 ([place]) Negative COVID-19 Clin Com See Note Blood Type Antibody Screen Crossmatch 09/08/21 09/08/21 14:48 14:51 MCV MCH MCHC RDW Plt Count MPV Immature Gran % (Auto) Neut % (Auto) Lymph % (Auto) [place] % (Auto) Eos % (Auto) Baso % (Auto) Lymph # (Auto) [place] # (Auto) Eos # (Auto) Baso # (Auto) Abs Immat Gran (auto) Absolute Neuts (auto) Absolute Nucleated RBC Nucleated RBC % (auto) Smear Tech's Comments PT INR Anion Gap Estim Creat Clear Calc Estimated GFR Random Glucose Calcium Magnesium Total Bilirubin Direct Bilirubin AST ALT Alkaline Phosphatase Total Creatine Kinase 190 H Troponin I High Sens Total Protein Albumin Lipase Stool Occult Blood POSITIVE COVID-19 ([place]) COVID-19 Clin Com Blood Type Antibody Screen Crossmatch Assessment and Plan (1) Acute blood loss anemia: Status: Acute (2) Acute GI bleeding: Status: Acute (3) Chronic a-fib: Status: Acute Plan 80/ with AFIB on Xarelto here with Melena and hematochezia, acute blood loss anemia tachycardia reflecting anemia 1/ Acute blood loss anemia, upper and possibly lower GI bleed -s/p Kcentra, Vit K, FFP, Octreotide, IV PPI -for EGD tonight -serial H/H 2/ Chronic AFIB--tachycardia d/t anemia -obviously no Xarelto, can consider med for rate control after appropriately volume resuscitated stated with IV fluid and blood product DVT prophylaxis: compression device Admission to span at least 2 midnight for GI bleed work, blood product transfusion, hemodynamic monitoring Quality Stroke Does the patient have a stroke diagnosis?: No VTE Prior VTE?: No VTE Risk Level:: Medical - moderate - high VTE Device Contraindication: N/A - Device Ordered VTE Drug Contraindication: Treatment Not Tolerated
--- NOTE | 2021-09-08 17:46 | PC.NURSE ---
UNABLE TO DOCUMENT INITIATION OF FFP IN [facility]. VERIFIED UNIT WITH GENERAL INTERNTATI PANDA.
--- NOTE | 2021-09-08 17:49 | PC.NURSE ---
FFP TRANSFUSION INITIATED AT 1736H
--- NOTE | 2021-09-08 17:54 | PHA.MEDREC ---
MED REC COMPLETE, NO ISSUES Pharmacy Consult ? Medication Reconciliation Pharmacy has completed the medication reconciliation.
--- NOTE | 2021-09-08 17:58 | P.CONAN_ITS ---
HPI - Anesthesia Eval Consult details Narrative: acute GI bleeding PMFSH Active Problems Active Problems: All Active Problems (Updated 09/08/21 @ 17:31 by Nathan Jones MD) Chronic a-fib (Acute) Acute blood loss anemia (Acute) Acute GI bleeding (Acute) Cellulitis (Acute) Skin lesion (Acute) Non-cardiac chest pain (Acute) Lymphedema (Acute) Compulsive buying (Acute) Medicare annual wellness visit, initial (Acute) Breast screening (Acute) Moderate persistent asthma (Acute) Atrial fibrillation (Acute) BULL (dyspnea on exertion) (Acute) Left elbow pain (Acute) Lymphedema (Acute) Obesity (Acute) Environmental allergies (Acute) Chronic GERD (Acute) Mild cognitive disorder (Acute) Depression with anxiety (Acute) Lipid disorder (Acute) Arthrosis (Acute) Urinary urgency (Acute) Frequency of micturition (Acute) Recurrent UTI (Acute) Overactive bladder (Acute) Past Medical History Medical History (Updated 09/08/21 @ 17:31 by Nathan Jones MD) Chronic a-fib Moderate persistent asthma Functional capacity: independent ambulation Patient : No Family History Family History Father No problems noted. Mother Cerebral brain hemorrhage Family history of problems with anesthesia: No Surgical History History of Problems with Anesthesia: No Social History Social History Housing: House Alcohol intake: current Alcohol intake frequency: a few times a month Patient Tobacco Use Status: Never used Tobacco e-Cigarette/Vaping Use: Never Used Second Hand Smoke Exposure: Yes Use of substances other than those prescribed or required for medical reasons: No Are you DNR?: No Advance Directives: No Advance Directives Information Provided: No Patient : No Current occupational status: retired Meds Allergies Allergy/AdvReac Type Severity Reaction Status Date / Time lorazepam Allergy Unknown unknown Verified 08/29/21 13:30 pantoprazole Allergy Unknown NAUSEA Verified 08/29/21 13:30 amoxicillin [AMOXICILLIN] AdvReac Intermediate NAUSEA/VOMI Verified 08/29/21 13:30 TING Active Medications: Current Medications Acetaminophen (Acetaminophen 325 Mg Tablet) 650 mg PO Q6H PRN PRN Reason: Pain, Mild (Pain Scale 1-3) Pantoprazole Sodium 80 mg/ (Sodium Chloride) 100 mls @ 10 mls/hr IV .Q10H JORGE Dextrose/Sodium Chloride (D51/2ns) 1,000 mls @ 100 mls/hr IVCONT .Q10H JORGE Melatonin (Melatonin 3 Mg Tablet) 6 mg PO BEDTIME PRN PRN Reason: Insomnia Ondansetron HCl (Ondansetron Hcl 4 Mg/2 Ml Vial) 4 mg IVPUSH Q8H PRN PRN Reason: Nausea and Vomiting Pharmacy Consult (Consult Rx Perform Med Rec) 1 each MISCELLANE ONCE PRN PRN Reason: Consult order Sodium Chloride (0.9 % Sodium Chloride Flush 3 Ml Syringe) 3 ml IVFLUSH QSHIFT [facility] Home Medications Medication Instructions Recorded Confirmed Last Taken Type omeprazole 40 mg capsule,delayed 40 mg PO DAILY 11/20/19 09/08/21 09/07/21 History release donepezil 10 mg tablet 10 mg PO DAILY 11/27/20 09/08/21 09/07/21 History Tumeric 1,000 mg PO DAILY 09/08/21 09/08/21 Unknown History coQ10 (ubiquinol) 200 mg capsule 200 mg PO DAILY 09/08/21 09/08/21 Unknown History cod liver oil 1 cap PO DAILY 09/08/21 09/08/21 Unknown History glucosamine sulfate 500 mg tablet 500 mg PO DAILY 09/08/21 09/08/21 Unknown History (Glucosamine) Exam Exam Date and Time: September 08, 2021 1758 Height,Weight and Vital Signs: Height 5 ft 7 in Weight 95.254 kg Last Vital Signs Temp 97.9 F 09/08/21 17:36 Pulse 116 H 09/08/21 17:36 Resp 18 09/08/21 17:36 BP 158/89 H 09/08/21 17:36 Pulse Ox 95 09/08/21 14:42 O2 Del Method 09/08/21 14:42 Pertinent Lab Results Pertinent Lab Results: Laboratory Tests 09/08/21 09/08/21 09/08/21 14:46 14:46 14:47 WBC RBC Hgb Hct MCV MCH MCHC RDW Plt Count MPV Immature Gran % (Auto) Neut % (Auto) Lymph % (Auto) [place] % (Auto) Eos % (Auto) Baso % (Auto) Lymph # (Auto) [place] # (Auto) Eos # (Auto) Baso # (Auto) Abs Immat Gran (auto) Absolute Neuts (auto) Absolute Nucleated RBC Nucleated RBC % (auto) Smear Tech's Comments PT INR Sodium 139 Potassium 4.4 Chloride 107 Carbon Dioxide 24 Anion Gap 12 BUN 53 H Creatinine 0.84 Estim Creat Clear Calc 64.3 Estimated GFR > 60 Random Glucose 136 H Calcium 8.8 D Magnesium 1.7 Total Bilirubin 0.4 Direct Bilirubin 0.2 AST 20 ALT 12 Alkaline Phosphatase 64 Total Creatine Kinase Troponin I High Sens < 3.5 Total Protein 5.5 L Albumin 3.7 Lipase 7 L Stool Occult Blood COVID-19 ([place]) COVID-[employer] Com Blood Type A Negative Antibody Screen NEGATIVE Crossmatch See Detail 09/08/21 09/08/21 09/08/21 14:48 14:48 14:48 WBC 8.3 RBC 2.39 L Hgb 6.8 L* Hct 21.7 L MCV 90.8 MCH 28.5 MCHC 31.3 RDW 14.2 Plt Count 275 MPV 10.5 Immature Gran % (Auto) 0.6 H Neut % (Auto) 90.5 H Lymph % (Auto) 6.5 L [place] % (Auto) 2.3 Eos % (Auto) 0.0 Baso % (Auto) 0.1 Lymph # (Auto) 0.5 L [place] # (Auto) 0.2 Eos # (Auto) 0.0 Baso # (Auto) 0.0 Abs Immat Gran (auto) 0.05 H Absolute Neuts (auto) 7.5 Absolute Nucleated RBC 0.000 Nucleated RBC % (auto) 0.0 Smear Tech's Comments VERIFIED PT 19.3 H INR 1.6 H Sodium Potassium Chloride Carbon Dioxide Anion Gap BUN Creatinine Estim Creat Clear Calc Estimated GFR Random Glucose Calcium Magnesium Total Bilirubin Direct Bilirubin AST ALT Alkaline Phosphatase Total Creatine Kinase Troponin I High Sens Total Protein Albumin Lipase Stool Occult Blood COVID-19 ([place]) Negative [employer] See Note Blood Type Antibody Screen Crossmatch 09/08/21 09/08/21 14:48 14:51 WBC RBC Hgb Hct MCV MCH MCHC RDW Plt Count MPV Immature Gran % (Auto) Neut % (Auto) Lymph % (Auto) [place] % (Auto) Eos % (Auto) Baso % (Auto) Lymph # (Auto) [place] # (Auto) Eos # (Auto) Baso # (Auto) Abs Immat Gran (auto) Absolute Neuts (auto) Absolute Nucleated RBC Nucleated RBC % (auto) Smear Tech's Comments PT INR Sodium Potassium Chloride Carbon Dioxide Anion Gap BUN Creatinine Estim Creat Clear Calc Estimated GFR Random Glucose Calcium Magnesium Total Bilirubin Direct Bilirubin AST ALT Alkaline Phosphatase Total Creatine Kinase 190 H Troponin I High Sens Total Protein Albumin Lipase Stool Occult Blood POSITIVE COVID-19 ([place]) COVID-19 Clin Com Blood Type Antibody Screen Crossmatch Airway Mallampati Class: I TM Dist: >3cm Neck ROM: Full Loose/Missing/Broken Teeth: No Heart: IRR Lungs: CTA Assessment and Plan Assessment Anesthesia Assessment: Anesthesia Plan Discussed and Chart Reviewed Final Anesthetic Review Family History of Problems with Anesthesia: No History of Problems with Anesthesia: No NPO: Yes ASA Class: II, III and Emergency Final Preanesthetic Review: Meds/Allgs Chart Reviewed, Consent Obtained/Reviewed and Anes Risks/Benef Reviewed Patient Risk: Intermediate Procedure Risk: Low Anesthetic Plan Anesthetic Plan: MAC: Disposition: Standard PACU
--- NOTE | 2021-09-08 17:59 | PHA.MEDREC ---
MED REC COMPLETE, NO ISSUES Pharmacy Consult ? Medication Reconciliation Pharmacy has completed the medication reconciliation.
--- NOTE | 2021-09-08 17:59 | PC.NURSE ---
pt tolerating transfusions very well. still unable to document.
--- NOTE | 2021-09-08 18:22 | PC.NURSE ---
ffp infused, pt to go to OR.
--- NOTE | 2021-09-08 19:55 | CONS_ITS ---
DATE OF SERVICE: 09/08/2021 REASON FOR CONSULTATION: GI bleeding. HISTORY OF PRESENT ILLNESS: This is a 80-year-old female who was well up until this morning when she developed the onset of melena, hematemesis, and weakness. Prior to today, she had been feeling well. She is on chronic Xarelto in relation to atrial fibrillation. She does describe using occasional Aleve, but certainly not on a daily basis. She does not use any aspirin, other NSAIDs, tobacco, nor any significant amounts of alcohol. The patient does take chronic omeprazole in relation to chronic reflux. She has undergone a previous upper endoscopy in [address] Dalton for evaluation of some reflux. This revealed evidence of erosive esophagitis, hiatal hernia, gastritis, and duodenal ulcer, which did not appear to be particularly large nor bleeding. Biopsies at that time were negative for H pylori and Best esophagus. I last saw her in 2020. In January of 2019, she underwent a colonoscopy with me that was negative other than some diverticulosis and hemorrhoids. There was no inflammatory bowel disease, but biopsies did reveal microscopic colitis. At that time, she was having significant diarrhea and responded well to a course of budesonide. Up until today, she has been feeling well from a GI standpoint and general. She enjoys a good appetite. She denies any significant heartburn on her daily omeprazole. She denies any previous nausea nor vomiting. She has not noticed any abdominal pain nor jaundice. Prior to today, her bowel movements have been regular without any significant diarrhea, hematochezia, nor melena. CURRENT MEDICATIONS: At home include citalopram, Advair, gemfibrozil, metoprolol, omeprazole, Xarelto. PAST MEDICAL HISTORY: Atrial fibrillation. Asthma. She describes lymphedema of her lower extremities. Microscopic colitis. Erosive esophagitis. Duodenal ulcer. Gastritis with biopsies negative for H pylori. Negative colonoscopy in 2019 other than the finding of the microscopic colitis. She denies any history of DE, but does have atrial fibrillation. She has had a TIA. She denies any history of stroke. She denies any history of diabetes, nor kidney disease. Her surgical history is negative. She also has history of hypertension and depression. SOCIAL HISTORY: As above. She is a . She is retired. FAMILY HISTORY: Negative for colon cancer, inflammatory bowel disease, nor ulcer disease. REVIEW OF SYSTEMS: CONSTITUTIONAL: Up until today, she has been feeling well with good energy and good appetite. SKIN: No rash. No pruritus. CARDIAC: No chest pain. PULMONARY: No cough. No hemoptysis. GI: As above. PHYSICAL EXAMINATION: GENERAL: The patient is a pleasant, pale, alert female. SKIN: Warm and dry. Nonjaundiced. HEENT: Anicteric sclerae. CARDIAC: Normal S1, S2. ABDOMEN: Soft, nondistended, nontender. EXTREMITIES: Do reveal bilateral pretibial edema. LABORATORY DATA: White blood cell count 8.3, hemoglobin 6.8, MCV 91, platelets 275,000. PT 19.3 with INR 1.6. Normal electrolytes. BUN 53, creatinine 0.8. Normal liver profile, lipase of 7. IMPRESSION: Given the patient's clinical history, this seems quite consistent with an upper GI bleed. I suspect this represents bleeding from something such as ulcer disease, significant esophagitis, significant gastritis, Caro Hernández tear, or something such as a Dieulafoy lesion. At this point, she appears to be stable. I would agree with the current management of trying to reverse her Xarelto with Kcentra, a trial of vitamin K and FFP to try to normalize her PT with INR, and transfusion of packed red blood cells for her significant anemia. I would keep her on IV PPI and follow her laboratories closely. Once things have been accomplished in regard to the transfusion of blood products and medication, I would then recommend an upper endoscopy with monitored anesthesia care later today. Full consent has been obtained from her for this, including risks of bleeding and perforation. She was comfortable with this plan. Thank you for this consultation. MD MAYANK Bansal/KEENAN / [id number] CHER
[2021-09-08 20:54] LABS: Hematocrit 23.2 % (37.0-47.0); Hemoglobin 7.3 g/dl (12.0-16.0)
[2021-09-08] MEDS: Pantoprazole Sodium 80 MG in 0.9 % Sodium Chloride 80 ML 10 MG IV (21:14)
[2021-09-08] MEDS: 0.9 % Sodium Chloride Flush 3 ML SYRINGE IVFLUSH (21:15)
[2021-09-08] MEDS: Sucralfate Oral Suspension 1 GM/10 ML ORAL.SUSP PO (21:33)
[2021-09-08] MEDS: Dextrose 5 % and 0.45 % NaCl 1,000 ML 100 ML IVCONT (22:42)
--- NOTE | 2021-09-08 23:55 | PM.OP ---
Brief Operative Note Date of Service: 09/08/21 Pre-op diagnosis: UGI Bleed Post-op diagnosis: other (Proximal small ?gastric ulcer vs. ?Dieulafoy lesion, large hiatal hernia, GERD) Procedure: EGD with placement of 4 Resolution clips and injection with 1:10,000 Epinephrine Surgeon: Aries Hernández Anesthesia: MAC Was an Epoxy Coatings Installer used for this Procedure?: No Estimated blood loss (mL): 2.0 Pathology: none sent Condition: stable Disposition: PACU
--- NOTE | 2021-09-08 23:58 | PM.EVENT ---
Event Note Date of Service: 09/08/21 Event Note: GI-EGD-Full note dictated Findings: 1. Small, approximately 5 mm lesion on a fold on the posterior gastric wall, just beneath the hiatal hernia, at 38cm. The lesion appeared to have had some central ulceration and surrounding erythema, but no bleeding nor visible vessel. This was the only area of suspicion in regard to a potential source of blood loss. Therefore, I applied 4 clips to the lesion along the fold with good deployment and good hemostasis. I also injected a total of 7cc of 1:10,000 Epi into the immediate surrounding tissue with good blanching of mucosa. 2.There was coffee grounds material throughout the stomach, but no active bleeding nor red blood was seen. 3.The hiatal hernia was large and its mucosa appeared normal, as did the duodenum, remainder of the stomach, and the esophagus. Rec: IV PPI infusion, Sucralfate suspension, NPO overnight and then clear liquids 7/20 AM if stable. F/U labs in AM. Hold all blood thinners, including her Xarelto. Thanks
[2021-09-09] VITALS (12 sets, daily range): BP systolic 101–132; BP diastolic 58–81; PULSE 77–95; RESP 16–20; TEMP 36.4–37.1; O2SAT 96–98
[2021-09-09 00:27] LABS: Hemoglobin 6.9 g/dl (12.0-16.0)
[2021-09-09 05:07] LABS: MANUAL DIFF FLAG NO
[2021-09-09 05:08] LABS: Basophils Percent Auto 0.4 % (0-2); Eosinophils Percent Auto 0.4 % (0-4); Hematocrit 23.3 % (37.0-47.0); Hemoglobin 7.6 g/dl (12.0-16.0); Imm Gran Abs Auto 0.04 X10*3/uL (0.00-0.03); Imm Gran Pct Auto 0.5 % (0.0-0.4); Lymphocytes Absolute Auto 1.2 X10*3/uL (1.2-4.9); Lymphocytes Percent Auto 14.9 % (20-40); Mean Corpuscular HGB Conc 32.6 g/dl (31.0-35.0); Mean Corpuscular Hemoglobin 30.3 pg (27.0-33.0); Mean Corpuscular Volume 92.8 fL (80.0-98.0); Mean Platelet Volume 10.4 fL (9.4-12.3); Monocytes Absolute Auto 0.8 X10*3/uL (0.1-1.2); Monocytes Percent Auto 9.7 % (2-11); Neutrophils Percent Auto 74.1 % (45-73); Platelet Count 186 X10*3/uL (160-400); Red Blood Count 2.51 X10*6/uL (4.20-5.50); Red Cell Distribution Width 14.5 % (11.0-16.0); White Blood Count 8.1 X10*3/uL (4.8-10.8)
[2021-09-09 05:31] LABS: Blood Urea Nitrogen 31 mg/dL (9-16); Calcium 8.1 mg/dL (8.4-10.2); Creatinine Clr Calc Pharmacy 80.5; Estimated Glomerular Filt Rate > 60; Glucose Fasting 117 mg/dL (60-99)
--- NOTE | 2021-09-09 05:32 | OP_ITS ---
SURGEON: Aries Hernández MD INDICATIONS: The patient presents for evaluation of upper GI bleeding. Full consent has been obtained from her for this, including risks of bleeding and perforation. PREOPERATIVE DIAGNOSIS: Upper gastrointestinal bleeding. POSTOPERATIVE DIAGNOSIS: PROCEDURE PERFORMED: Esophagogastroduodenoscopy with placement of 4 Resolution clips and sclerotherapy using epinephrine in a dilution of 1:10,000. ESTIMATED BLOOD LOSS: COMPLICATIONS: ANESTHESIA: Monitored anesthesia care. ASSISTANTS: SPECIMENS: POSTOPERATIVE DIAGNOSES: Upper gastrointestinal bleeding, small proximal gastric lesion consistent with possibly small ulcer and/or Dieulafoy lesion, large hiatal hernia. DESCRIPTION OF PROCEDURE: The patient was placed in the left lateral decubitus position. The Olympus video gastroscope was passed in the posterior oropharynx and upper esophagus under direct vision. The scope was passed slowly to the distal esophagus. The gastroesophageal junction appeared at 30 cm and appeared normal. There was no esophagitis nor varices. The scope entered the stomach. There was a large hiatal hernia noted. The scope was advanced to the pylorus. Throughout the stomach, including the hiatal hernia, was coffee-grounds material. There was no sign of any active bleeding nor fresh blood in the stomach. The duodenum was cannulated to the descending portion. The duodenum including the bulb appeared normal without mass or ulceration. There was no blood nor coffee-grounds material in the duodenum. I spent a considerable amount of time lavaging the stomach and inspecting for any lesion that would account for her bleeding. In the proximal portion of the stomach at 38 cm from the incisors and just beneath the hiatal hernia, was a small approximately 5 mm lesion on a gastric fold. This was on the posterior wall. It had what appeared to be some central ulceration and surrounding erythema. There was no visible vessel nor bleeding. This was irrigated without any sign of bleeding. The remainder of the endoscopy was normal without any sign of other ulcer disease, angiodysplasias, esophagitis, nor any esophageal disease that would account for her bleeding. Given the only finding being that of the above described small lesion in the proximal stomach, I did opt to place four Resolution clips on the suspicious area with good deployment and good hemostasis. I then proceeded to use a total of 7 cc of epinephrine to inject the tissue right around the suspicious lesion. There was good blanching and good hemostasis. After further observation and irrigation, there was no bleeding and the procedure was then terminated. She tolerated the procedure well and was returned to the recovery area in stable condition. IMPRESSION: Suspicious lesion in the proximal stomach consistent with the possible source of bleeding. This may represent a small gastric ulcer or possibly an underlying Dieulafoy lesion. I would recommend that she be continued on her IV PPI infusion and I shall also start her on Carafate. I will follow her hemoglobin closely. She will have followup laboratories in the morning. Her diet will be advanced as tolerated. She should remain off her Xarelto and all other blood thinners for the time being. MD MAYANK Bansal/KEENAN / [id number] MTDD
[2021-09-09 05:42] LABS: Anion Gap 12 (12-20); Carbon Dioxide 23 mmol/L (22-29); Chloride 109 mmol/L (96-108); Potassium 3.5 mmol/L (3.3-5.1); Sodium 140 mmol/L (135-145)
[2021-09-09 09:01] LABS: Hematocrit 24.9 % (37.0-47.0); Hemoglobin 8.1 g/dl (12.0-16.0)
[2021-09-09 09:10] LABS: Prothrombin Time 11.7 SEC (10.0-13.1)
--- NOTE | 2021-09-09 10:28 | P.PNIM_ITS ---
Subjective Subjective Date of Service: 09/09/21 Interval History: f/u on GIB, acute blood loss anemia requiring emergent EGD on09/08 Interval history: EGD revealed likely gastric ulcer as source of bleed but no active bleed. she has not had further melena or hematochezia, H/H has improved following transfusion Review of Systems no bleeding, no n/v Physical Exam Vital Signs: Vital Signs: Last Vital Signs Temp 97.5 F 09/09/21 08:00 Pulse 95 09/09/21 08:00 Resp 20 09/09/21 08:00 BP 132/81 09/09/21 08:00 Pulse Ox 98 09/09/21 08:00 O2 Del Method 09/09/21 08:00 O2 Flow Rate 5 09/08/21 20:15 BMI result Body Mass Index 33.7 Const: Other: General: AO X 3, no acute distress Resp: CTA bilateral CVS: S1,S2,RRR GI: +BS, NT, no distention Skin: No rash Neuro: motor grossly intact Psych: appropriate affect Objective Data Active Medications Acetaminophen (Acetaminophen 325 Mg Tablet) 650 mg PO Q6H PRN PRN Reason: Pain, Mild (Pain Scale 1-3) Pantoprazole Sodium 80 mg/ (Sodium Chloride) 100 mls @ 10 mls/hr IV .Q10H [facility] Last Infusion: 09/09/21 06:00 Dose: 0 mg/hr, 0 mls/hr Documented By: HELENA Dextrose/Sodium Chloride (D51/2ns) 1,000 mls @ 100 mls/hr IVCONT .Q10H [facility] Last Admin: 09/09/21 06:04 Dose: Not Given Documented By: HELENA Non-Admin Reason: IV Running Melatonin (Melatonin 3 Mg Tablet) 6 mg PO BEDTIME PRN PRN Reason: Insomnia Ondansetron HCl (Ondansetron Hcl 4 Mg/2 Ml Vial) 4 mg IVPUSH Q8H PRN PRN Reason: Nausea and Vomiting Pharmacy Consult (Consult Rx Perform Med Rec) 1 each MISCELLANE ONCE PRN PRN Reason: Consult order Sodium Chloride (0.9 % Sodium Chloride Flush 3 Ml Syringe) 3 ml IVFLUSH QSHIFT [facility] Last Admin: 09/08/21 21:15 Dose: 3 ml Documented By: HELENA Sucralfate (Sucralfate Oral Suspension 1 Gm/10 Ml Oral.Susp) 1 gm PO QIDACHS JORGE Last Admin: 09/08/21 21:33 Dose: 1 gm Documented By: HELENA Labs CBC & Chem 7: 09/09/21 08:33 09/09/21 04:59 Labs: Laboratory Results - last 24 hr 09/08/21 09/08/21 09/08/21 14:46 14:46 14:47 MCV MCH MCHC RDW Plt Count MPV Immature Gran % (Auto) Neut % (Auto) Lymph % (Auto) [place] % (Auto) Eos % (Auto) Baso % (Auto) Lymph # (Auto) [place] # (Auto) Eos # (Auto) Baso # (Auto) Abs Immat Gran (auto) Absolute Neuts (auto) Absolute Nucleated RBC Nucleated RBC % (auto) Smear Tech's Comments PT INR Anion Gap 12 Estim Creat Clear Calc 64.3 Estimated GFR > 60 Random Glucose 136 H Fasting Glucose Calcium 8.8 D Magnesium 1.7 Total Bilirubin 0.4 Direct Bilirubin 0.2 AST 20 ALT 12 Alkaline Phosphatase 64 Total Creatine Kinase Troponin I High Sens < 3.5 Total Protein 5.5 L Albumin 3.7 Lipase 7 L Stool Occult Blood COVID-19 ([facility]) COVID-19 Clin Com Blood Type A Negative Antibody Screen NEGATIVE Crossmatch See Detail 09/08/21 09/08/21 09/08/21 14:48 14:48 14:48 MCV 90.8 MCH 28.5 MCHC 31.3 RDW 14.2 Plt Count 275 MPV 10.5 Immature Gran % (Auto) 0.6 H Neut % (Auto) 90.5 H Lymph % (Auto) 6.5 L [place] % (Auto) 2.3 Eos % (Auto) 0.0 Baso % (Auto) 0.1 Lymph # (Auto) 0.5 L [place] # (Auto) 0.2 Eos # (Auto) 0.0 Baso # (Auto) 0.0 Abs Immat Gran (auto) 0.05 H Absolute Neuts (auto) 7.5 Absolute Nucleated RBC 0.000 Nucleated RBC % (auto) 0.0 Smear Tech's Comments VERIFIED PT 19.3 H INR 1.6 H Anion Gap Estim Creat Clear Calc Estimated GFR Random Glucose Fasting Glucose Calcium Magnesium Total Bilirubin Direct Bilirubin AST ALT Alkaline Phosphatase Total Creatine Kinase Troponin I High Sens Total Protein Albumin Lipase Stool Occult Blood COVID-19 ([place]) Negative COVID-19 Clin Com See Note Blood Type Antibody Screen Crossmatch 09/08/21 09/08/21 09/09/21 14:48 14:51 04:59 MCV 92.8 MCH 30.3 MCHC 32.6 RDW 14.5 Plt Count 186 D MPV 10.4 Immature Gran % (Auto) 0.5 H Neut % (Auto) 74.1 H Lymph % (Auto) 14.9 L [place] % (Auto) 9.7 Eos % (Auto) 0.4 Baso % (Auto) 0.4 Lymph # (Auto) 1.2 [place] # (Auto) 0.8 Eos # (Auto) 0.0 Baso # (Auto) 0.0 Abs Immat Gran (auto) 0.04 H Absolute Neuts (auto) 6.0 Absolute Nucleated RBC 0.000 Nucleated RBC % (auto) 0.0 Smear Tech's Comments PT INR Anion Gap Estim Creat Clear Calc Estimated GFR Random Glucose Fasting Glucose Calcium Magnesium Total Bilirubin Direct Bilirubin AST ALT Alkaline Phosphatase Total Creatine Kinase 190 H Troponin I High Sens Total Protein Albumin Lipase Stool Occult Blood POSITIVE COVID-19 ([place]) COVID-[employer] Com Blood Type Antibody Screen Crossmatch 09/09/21 09/09/21 04:59 08:33 MCV MCH MCHC RDW Plt Count MPV Immature Gran % (Auto) Neut % (Auto) Lymph % (Auto) [place] % (Auto) Eos % (Auto) Baso % (Auto) Lymph # (Auto) [place] # (Auto) Eos # (Auto) Baso # (Auto) Abs Immat Gran (auto) Absolute Neuts (auto) Absolute Nucleated RBC Nucleated RBC % (auto) Smear Tech's Comments PT 11.7 INR 1.0 Anion Gap 12 Estim Creat Clear Calc 80.5 Estimated GFR > 60 Random Glucose Fasting Glucose 117 H Calcium 8.1 L D Magnesium Total Bilirubin Direct Bilirubin AST ALT Alkaline Phosphatase Total Creatine Kinase Troponin I High Sens Total Protein Albumin Lipase Stool Occult Blood COVID-19 ([place]) COVID-[employer] Com Blood Type Antibody Screen Crossmatch Assessment and Plan (1) Chronic a-fib: Status: Acute (2) Acute blood loss anemia: Status: Acute (3) Acute GI bleeding: Status: Acute Plan 80/ with AFIB on Xarelto here with Melena and hematochezia, acute blood loss anemia tachycardia reflecting anemia 1/ Acute blood loss anemia from likely upper GIB, -s/p Kcentra, Vit K, FFP, Octreotide, IV PPI -EGD 09/[address] Hernández--5mm gastric ulcer at post gastric wall -serial H/H signficantly better hgb 6.9 to 8.1 now, no further transfusion and monitor -continue holding xarelto, continue IV PP, Sucralfate and start clear liquid diet today--Ses Dr. hernández note for details -CBC tomorrow 2/ Chronic AFIB--tachycardia d/t anemia -obviously no Xarelto, restart metoprolol DVT prophylaxis: compression device Need for inpatient: ongoing mangement for acute gib, gastric ulcer requiring frequent CBC, IV PPI and may need further transfusion Quality Stroke Does the patient have a stroke diagnosis?: No VTE Prior VTE?: No VTE Risk Level:: Medical - moderate - high VTE Device Contraindication: N/A - Device Ordered VTE Drug Contraindication: Treatment Not Tolerated
[2021-09-09] MEDS: Sucralfate Oral Suspension 1 GM/10 ML ORAL.SUSP PO ×2 (10:51→19:31)
[2021-09-09] MEDS: Pantoprazole Sodium 80 MG in 0.9 % Sodium Chloride 80 ML 10 MG IV (10:51)
[2021-09-09] MEDS: Donepezil HCl 10 MG TABLET PO (10:52)
[2021-09-09] MEDS: 0.9 % Sodium Chloride Flush 3 ML SYRINGE IVFLUSH ×3 (10:52→21:38)
[2021-09-09] MEDS: Escitalopram Oxalate 10 MG TABLET PO (10:57)
[2021-09-09] MEDS: Metoprolol Succinate ER 25 MG TAB.ER.24H 75 MG PO (10:57)
[2021-09-09] MEDS: gemfibroziL 600 MG TABLET PO (10:57)
--- NOTE | 2021-09-09 13:41 | HO.POSTANES ---
Post Anesthesia Evaluation Post Anesthesia Evaluation Vital Signs: Vital Signs Temp Pulse Resp BP Pulse Ox O2 Del Method 09/09/21 11:48 97.7 F 85 20 116/60 97 Room Air 09/09/21 08:00 97.5 F 95 20 132/81 98 Room Air 09/09/21 04:05 98.2 F 86 18 123/70 09/09/21 03:26 98.4 F 81 18 125/79 97 Room Air 09/09/21 01:53 97.7 F 87 16 109/58 L Anesthesia: Monitored Mental Status: Awake Pain Control: Satisfactory Nausea/Vomiting: None Hydration: Adequate Anesthesia-Related Issues: No Anes. Related Issues
--- NOTE | 2021-09-09 16:40 | MHC.CM.PN ---
EMR REVIEWED, PT ADMITTED W/GIB AND ACUTE BLOOD LOSS ANEMIA, CM MET W/PT WHO IS A&OX4, REPORTS SHE LIVES ALONE, DENIES USE OF DME AND HOME SERVICES AND DOES NOT ANTIC NEEDING ANY WHEN D/C'S, PT VERIFIES PCP IS CATRINA BUI X3 AND THAT HCP IS DELFINO BREEN, COPY REQUESTED. D/C PLAN: HOME SELF-CARE W/FRIEND FOR TRANSPORT
--- NOTE | 2021-09-09 18:48 | P.PNGI_ITS ---
Subjective Subjective Date of Service: 09/09/21 Interval History: Feels OK, but tired and c/o SOB although that predates this GI bleeding issue. She had been stable overnight and today, but did have a bloody BM a short while ago mixed with dark stool. Denies abdominal pain, N/V. Tolerated clear liquids today. Critical Care Time (minutes): 0 Physical Exam Vital Signs: Vital Signs: Last Vital Signs Temp 98.8 F 09/09/21 18:44 Pulse 90 09/09/21 18:44 Resp 18 09/09/21 18:44 BP 110/64 09/09/21 18:44 Pulse Ox 96 09/09/21 16:00 O2 Del Method 09/09/21 16:00 O2 Flow Rate 5 09/08/21 20:15 BMI result Body Mass Index 33.7 Const: General: cooperative, comfortable, no acute distress, alert and awake GI: Other: +BS, soft, NT, and nondistended Skin: Other: Warm and dry Objective Data Labs CBC & Chem 7: 09/09/21 08:33 09/09/21 04:59 Labs: Laboratory Results - last 24 hr 09/08/21 09/08/21 09/08/21 14:46 20:47 23:41 WBC RBC Hgb 7.3 L 6.9 L* Hct 23.2 L 21.0 L* MCV MCH MCHC RDW Plt Count MPV Immature Gran % (Auto) Neut % (Auto) Lymph % (Auto) [place] % (Auto) Eos % (Auto) Baso % (Auto) Lymph # (Auto) [place] # (Auto) Eos # (Auto) Baso # (Auto) Abs Immat Gran (auto) Absolute Neuts (auto) Absolute Nucleated RBC Nucleated RBC % (auto) PT INR Sodium Potassium Chloride Carbon Dioxide Anion Gap BUN Creatinine Estim Creat Clear Calc Estimated GFR Fasting Glucose Calcium Blood Type A Negative Antibody Screen NEGATIVE Crossmatch See Detail 09/09/21 09/09/21 09/09/21 04:59 04:59 08:33 WBC 8.1 RBC 2.51 L Hgb 7.6 L 8.1 L Hct 23.3 L 24.9 L MCV 92.8 MCH 30.3 MCHC 32.6 RDW 14.5 Plt Count 186 D MPV 10.4 Immature Gran % (Auto) 0.5 H Neut % (Auto) 74.1 H Lymph % (Auto) 14.9 L [place] % (Auto) 9.7 Eos % (Auto) 0.4 Baso % (Auto) 0.4 Lymph # (Auto) 1.2 [place] # (Auto) 0.8 Eos # (Auto) 0.0 Baso # (Auto) 0.0 Abs Immat Gran (auto) 0.04 H Absolute Neuts (auto) 6.0 Absolute Nucleated RBC 0.000 Nucleated RBC % (auto) 0.0 PT INR Sodium 140 Potassium 3.5 D Chloride 109 H Carbon Dioxide 23 Anion Gap 12 BUN 31 H Creatinine 0.68 Estim Creat Clear Calc 80.5 Estimated GFR > 60 Fasting Glucose 117 H Calcium 8.1 L D Blood Type Antibody Screen Crossmatch 09/09/21 08:33 WBC RBC Hgb Hct MCV MCH MCHC RDW Plt Count MPV Immature Gran % (Auto) Neut % (Auto) Lymph % (Auto) [place] % (Auto) Eos % (Auto) Baso % (Auto) Lymph # (Auto) [place] # (Auto) Eos # (Auto) Baso # (Auto) Abs Immat Gran (auto) Absolute Neuts (auto) Absolute Nucleated RBC Nucleated RBC % (auto) PT 11.7 INR 1.0 Sodium Potassium Chloride Carbon Dioxide Anion Gap BUN Creatinine Estim Creat Clear Calc Estimated GFR Fasting Glucose Calcium Blood Type Antibody Screen Crossmatch Procedures Date of Service Date of Service: 09/09/21 Progress Note: A&P Assessment and plan (1) Acute GI bleeding: Status: Acute Assessment and Plan: Imp: UGI bleed given her clinical hx, last evening's EGD findings with coffee grounds material and suspicious lesion treated endoscopically, and elevated BUN:Cr. I don't think think this is a lower GI bleed. She had her 1st BM since admission a short while ago with some blood so we will have to see if that represents old blood or recurrent bleeding. Her abdominal exam is benign. Rec: Check F/U blood counts now and later this evening, as well as in the AM with BUN/Creatinine. Continue IV PPI infusion and sucralfate. Will keep her NPO for now to see how things go overnight. I advised her that she may need a repeat EGD if she has recurrent bleeding. Thanks Time Spent With Patient Time: Total time spent is greater than 50% in coordination of care (as documented) at patient's floor/unit and/or counseling patient: Quality Stroke Does the patient have a stroke diagnosis?: No VTE Prior VTE?: No VTE Risk Level:: Medical - moderate - high VTE Device Contraindication: N/A - Device Ordered VTE Drug Contraindication: Treatment Not Tolerated
[2021-09-09 19:34] LABS: Hematocrit 26.5 % (37.0-47.0); Hemoglobin 8.7 g/dl (12.0-16.0)
[2021-09-09 21:50] LABS: Hematocrit 27.1 % (37.0-47.0); Hemoglobin 8.9 g/dl (12.0-16.0)
[2021-09-10] MEDS: Pantoprazole Sodium 80 MG in 0.9 % Sodium Chloride 80 ML 10 MG IV ×3 (00:44→21:24)
[2021-09-10 02:48] VITALS: BP 107/58; PULSE 93; RESP 20; TEMP 37.1; O2SAT 95
[2021-09-10 06:54] LABS: Hematocrit 26.2 % (37.0-47.0); Hemoglobin 8.6 g/dl (12.0-16.0); Mean Corpuscular HGB Conc 32.8 g/dl (31.0-35.0); Mean Corpuscular Hemoglobin 30.5 pg (27.0-33.0); Mean Corpuscular Volume 92.9 fL (80.0-98.0); Mean Platelet Volume 10.4 fL (9.4-12.3); Platelet Count 169 X10*3/uL (160-400); Red Blood Count 2.82 X10*6/uL (4.20-5.50); Red Cell Distribution Width 15.9 % (11.0-16.0); White Blood Count 7.5 X10*3/uL (4.8-10.8)
[2021-09-10 07:36] LABS: Anion Gap 9 (12-20); Blood Urea Nitrogen 16 mg/dL (9-16); Calcium 8.6 mg/dL (8.4-10.2); Carbon Dioxide 26 mmol/L (22-29); Chloride 111 mmol/L (96-108); Creatinine Clr Calc Pharmacy 80.5; Estimated Glomerular Filt Rate > 60; Glucose Fasting 91 mg/dL (60-99); Potassium 3.8 mmol/L (3.3-5.1); Sodium 142 mmol/L (135-145)
[2021-09-10 08:00] VITALS: BP 126/70; PULSE 83; RESP 20; TEMP 36.6; O2SAT 96
--- NOTE | 2021-09-10 10:16 | HO.PM.IMPN ---
Subjective Subjective Date of Service: 09/10/21 Interval History: f/u on GIB, acute blood loss anemia requiring emergent EGD on09/08 Interval history: Had moderate amount of burgandy stool in the evening yesterday with no shift in H/H and H/H remains essentially unchanged overnight, no further bleed this morning, hemodynamically stable. Review of Systems no bleeding, no n/v Physical Exam Vital Signs: Vital Signs: Last Vital Signs Temp 97.9 F 09/10/21 08:00 Pulse 83 09/10/21 08:00 Resp 20 09/10/21 08:00 BP 126/70 09/10/21 08:00 Pulse Ox 96 09/10/21 08:00 O2 Del Method 09/10/21 08:00 O2 Flow Rate 5 09/08/21 20:15 BMI result Body Mass Index 33.7 Const: Other: General: AO X 3, no acute distress Resp: CTA bilateral CVS: S1,S2,RRR GI: +BS, NT, no distention Skin: No rash Neuro: motor grossly intact Psych: appropriate affect Objective Data Active Medications Acetaminophen (Acetaminophen 325 Mg Tablet) 650 mg PO Q6H PRN PRN Reason: Pain, Mild (Pain Scale 1-3) Albuterol Sulfate (Albuterol Sulfate 90 Mcg 8 Gm Inhaler) 2 puff INHALE Q4H PRN PRN Reason: bronchospasm Donepezil HCl (Donepezil Hcl 10 Mg Tablet) 10 mg PO DAILY [facility] Last Admin: 09/09/21 10:52 Dose: 10 mg Documented By: MITCH Escitalopram Oxalate (Escitalopram Oxalate 10 Mg Tablet) 10 mg PO DAILY [facility] Last Admin: 09/09/21 10:57 Dose: 10 mg Documented By: MITCH Fluticasone Propionate (Fluticasone Propionate Nasal 16 Gm [place]) 1 spray NOSTRIL-B DAILY [facility] Fluticasone Propionate (Fluticasone Propionate 100 Mcg Blst.W.Dev) 1 puff INHALE RBID [facility] Last Admin: 09/09/21 21:36 Dose: Not Given Documented By: NGOZI Non-Admin Reason: Med Not Available Gemfibrozil (Gemfibrozil 600 Mg Tablet) 600 mg PO DAILY [facility] Last Admin: 09/09/21 10:57 Dose: 600 mg Documented By: MICTH Pantoprazole Sodium 80 mg/ (Sodium Chloride) 100 mls @ 10 mls/hr IV .Q10H [facility] Last Admin: 09/10/21 05:11 Dose: Not Given Documented By: NGOZI Non-Admin Reason: rashmi prater charted at 00:44 Melatonin (Melatonin 3 Mg Tablet) 6 mg PO BEDTIME PRN PRN Reason: Insomnia Metoprolol Succinate (Metoprolol Succinate Er 25 Mg Tab.Er.24h) 75 mg PO DAILY [facility]; Protocol Last Admin: 09/09/21 10:57 Dose: 75 mg Documented By: MITCH Ondansetron HCl (Ondansetron Hcl 4 Mg/2 Ml Vial) 4 mg IVPUSH Q8H PRN PRN Reason: Nausea and Vomiting Pharmacy Consult (Consult Rx Perform Med Rec) 1 each MISCELLANE ONCE PRN PRN Reason: Consult order Sodium Chloride (0.9 % Sodium Chloride Flush 3 Ml Syringe) 3 ml IVFLUSH QSHIFT [facility] Last Admin: 09/09/21 21:38 Dose: 3 ml Documented By: NGOZI Sucralfate (Sucralfate Oral Suspension 1 Gm/10 Ml Oral.Susp) 1 gm PO QIDACHS [facility] Last Admin: 09/09/21 22:56 Dose: Not Given Documented By: NGOZI Non-Admin Reason: given at 19:30 Labs CBC & Chem 7: 09/10/21 06:42 09/10/21 06:42 Labs: Laboratory Results - last 24 hr 09/08/21 09/10/21 09/10/21 14:46 06:42 06:42 MCV 92.9 MCH 30.5 MCHC 32.8 RDW 15.9 Plt Count 169 MPV 10.4 Absolute Nucleated RBC 0.000 Nucleated RBC % (auto) 0.0 Anion Gap 9 L Estim Creat Clear Calc 80.5 Estimated GFR > 60 Fasting Glucose 91 Calcium 8.6 D Blood Type A Negative Antibody Screen NEGATIVE Crossmatch See Detail Assessment and Plan (1) Chronic a-fib: Status: Acute (2) Acute blood loss anemia: Status: Acute (3) Acute GI bleeding: Status: Acute Plan 80/ with AFIB on Xarelto here with Melena and hematochezia, acute blood loss anemia tachycardia reflecting anemia 1/ Acute blood loss anemia from likely upper GIB, -s/p Kcentra, Vit K, FFP, Octreotide, IV PPI -EGD 09/[address] Hernández--5mm gastric ulcer at post gastric wall -serial H/H signficantly better hgb 6.9 to 8.1 now, s/p 4 units of RBC, burgandy stool yesterday no shift in H/H -continue holding xarelto, continue IV PP, Sucralfate and start, NPO for now-- Repeat EGD with any indication of active bleed but doesn't appear to be the case right now -CBC tomorrow 2/ Chronic AFIB--rate controlled -obviously no Xarelto, continue metoprolol DVT prophylaxis: compression device Need for inpatient: ongoing mangement for acute gib, gastric ulcer requiring frequent CBC, IV PPI and may need further transfusion and repeat endoscopy Quality Stroke Does the patient have a stroke diagnosis?: No VTE Prior VTE?: No VTE Risk Level:: Medical - moderate - high VTE Device Contraindication: N/A - Device Ordered VTE Drug Contraindication: Treatment Not Tolerated
[2021-09-10] MEDS: gemfibroziL 600 MG TABLET PO (10:25)
[2021-09-10] MEDS: Escitalopram Oxalate 10 MG TABLET PO (10:26)
[2021-09-10] MEDS: 0.9 % Sodium Chloride Flush 3 ML SYRINGE IVFLUSH ×3 (10:26→21:28)
[2021-09-10] MEDS: Donepezil HCl 10 MG TABLET PO (10:26)
[2021-09-10] MEDS: Metoprolol Succinate ER 25 MG TAB.ER.24H 75 MG PO (10:26)
[2021-09-10 11:28] LABS: Hematocrit 28.8 % (37.0-47.0); Hemoglobin 9.3 g/dl (12.0-16.0)
[2021-09-10 12:00] VITALS: BP 137/79; PULSE 95; RESP 20; TEMP 36.7; O2SAT 96
[2021-09-10] MEDS: Sucralfate Oral Suspension 1 GM/10 ML ORAL.SUSP PO ×3 (12:11→21:26)
--- NOTE | 2021-09-10 13:13 | MHC.CM.PN ---
Per MD rounds, patient will be ready in 1-2 days for discharge. Case management will continue to follow for discharge planning needs.
[2021-09-10 14:28] LABS: Hematocrit 26.4 % (37.0-47.0); Hemoglobin 8.5 g/dl (12.0-16.0); Mean Corpuscular HGB Conc 32.2 g/dl (31.0-35.0); Mean Corpuscular Hemoglobin 29.9 pg (27.0-33.0); Mean Platelet Volume 9.9 fL (9.4-12.3); NRBC Pct Auto 0.4 /100WBC (0.0-0.2); Platelet Count 171 X10*3/uL (160-400); Red Blood Count 2.84 X10*6/uL (4.20-5.50); Red Cell Distribution Width 15.9 % (11.0-16.0); White Blood Count 7.4 X10*3/uL (4.8-10.8)
[2021-09-10 16:00] VITALS: BP 115/72; PULSE 86; RESP 18; TEMP 36.3; O2SAT 98
[2021-09-10 17:26] LABS: Hematocrit 27.9 % (37.0-47.0); Hemoglobin 9.1 g/dl (12.0-16.0)
--- NOTE | 2021-09-10 19:12 | PM.GIPN ---
Subjective Subjective Date of Service: 09/10/21 Interval History: 7:15PM Patient seen at approx. 11:30AM today but her course over the day has been noted. She had no further signs of bleeding overnight after the 1 BM last evening. However, she had 2 more dark stools with some red blood over the course of this afternoon. However, her Hgb has remained stable and she has not needed any transfusions since yesterday afternoon. She has had a total of 3u PRBC's and 2u FFP. Denies N/V, abdominal pain, dizziness. Critical Care Time (minutes): 0 Physical Exam Vital Signs: Vital Signs: Last Vital Signs Temp 97.4 F 09/10/21 16:00 Pulse 86 09/10/21 16:00 Resp 18 09/10/21 16:00 BP 115/72 09/10/21 16:00 Pulse Ox 98 09/10/21 16:00 O2 Del Method 09/10/21 16:00 O2 Flow Rate 5 09/08/21 20:15 BMI result Body Mass Index 33.7 Const: General: cooperative, comfortable, no acute distress, well developed, alert and awake GI: Other: +BS, soft NT Skin: Other: Warm and dry Objective Data Labs CBC & Chem 7: 09/10/21 17:07 09/10/21 06:42 Labs: Laboratory Results - last 24 hr 09/08/21 09/09/21 09/09/21 14:46 19:26 21:41 WBC RBC Hgb 8.7 L 8.9 L Hct 26.5 L 27.1 L MCV MCH MCHC RDW Plt Count MPV Absolute Nucleated RBC Nucleated RBC % (auto) Sodium Potassium Chloride Carbon Dioxide Anion Gap BUN Creatinine Estim Creat Clear Calc Estimated GFR Fasting Glucose Calcium Crossmatch See Detail 09/10/21 09/10/21 09/10/21 06:42 06:42 11:13 WBC 7.5 RBC 2.82 L Hgb 8.6 L 9.3 L Hct 26.2 L 28.8 L MCV 92.9 MCH 30.5 MCHC 32.8 RDW 15.9 Plt Count 169 MPV 10.4 Absolute Nucleated RBC 0.000 Nucleated RBC % (auto) 0.0 Sodium 142 Potassium 3.8 Chloride 111 H Carbon Dioxide 26 Anion Gap 9 L BUN 16 Creatinine 0.68 Estim Creat Clear Calc 80.5 Estimated GFR > 60 Fasting Glucose 91 Calcium 8.6 D Crossmatch 09/10/21 09/10/21 14:22 17:07 WBC 7.4 RBC 2.84 L Hgb 8.5 L 9.1 L Hct 26.4 L 27.9 L MCV 93.0 MCH 29.9 MCHC 32.2 RDW 15.9 Plt Count 171 MPV 9.9 Absolute Nucleated RBC 0.030 H Nucleated RBC % (auto) 0.4 H Sodium Potassium Chloride Carbon Dioxide Anion Gap BUN Creatinine Estim Creat Clear Calc Estimated GFR Fasting Glucose Calcium Crossmatch Procedures Date of Service Date of Service: 09/10/21 Progress Note: A&P Assessment and plan (1) Acute GI bleeding: Status: Acute Assessment and Plan: Imp: UGI bleed-clinically stable but she has had several dark stools with red blood. The concern is that of recurrent active bleeding. However, her very stable Hgb and decreasing BUN would seemingly go against active bleeding. Therefore, this hopefully represents passage of residual old blood from the original bleed. Rec: Continue current medical regimen, clear liquids, and close following of her labs and clinical course. I will have a low threshold to repeat her EGD if it looks like there is recurrent active bleeding. Please call or text me if the need arises. D/W patient in detail and she is comfortable with this plan. Thanks Time Spent With Patient Time: Total time spent is greater than 50% in coordination of care (as documented) at patient's floor/unit and/or counseling patient: Quality Stroke Does the patient have a stroke diagnosis?: No VTE Prior VTE?: No VTE Risk Level:: Medical - moderate - high VTE Device Contraindication: N/A - Device Ordered VTE Drug Contraindication: Treatment Not Tolerated
[2021-09-10 20:00] VITALS: BP 117/69; PULSE 86; RESP 18; TEMP 36.2; O2SAT 97
[2021-09-10] MEDS: Fluticasone Propionate 100 MCG BLST.W.DEV 1 PUFF INHALE (20:25)
[2021-09-10 20:28] VITALS: PULSE 86; RESP 16; O2SAT 98
[2021-09-10 21:13] LABS: Hematocrit 28.1 % (37.0-47.0); Hemoglobin 9.2 g/dl (12.0-16.0)
[2021-09-11] VITALS (7 sets, daily range): BP systolic 120–146; BP diastolic 59–72; PULSE 72–90; RESP 15–20; TEMP 36.3–37; O2SAT 95–97
[2021-09-11 06:48] LABS: MANUAL DIFF FLAG NO
[2021-09-11 06:53] LABS: Basophils Percent Auto 0.5 % (0-2); Eosinophils Absolute Auto 0.3 X10*3/uL (0.0-0.4); Eosinophils Percent Auto 4.6 % (0-4); Hematocrit 26.6 % (37.0-47.0); Hemoglobin 8.7 g/dl (12.0-16.0); Imm Gran Abs Auto 0.02 X10*3/uL (0.00-0.03); Imm Gran Pct Auto 0.3 % (0.0-0.4); Lymphocytes Absolute Auto 0.9 X10*3/uL (1.2-4.9); Mean Corpuscular HGB Conc 32.7 g/dl (31.0-35.0); Mean Corpuscular Hemoglobin 30.4 pg (27.0-33.0); Mean Platelet Volume 10.9 fL (9.4-12.3); Monocytes Absolute Auto 0.8 X10*3/uL (0.1-1.2); Monocytes Percent Auto 11.5 % (2-11); Neutrophils Absolute Auto 4.6 x10*3/uL (2.0-8.3); Neutrophils Percent Auto 69.1 % (45-73); Platelet Count 181 X10*3/uL (160-400); Red Blood Count 2.86 X10*6/uL (4.20-5.50); Red Cell Distribution Width 15.7 % (11.0-16.0); White Blood Count 6.6 X10*3/uL (4.8-10.8)
[2021-09-11 07:22] LABS: Anion Gap 10 (12-20); Blood Urea Nitrogen 11 mg/dL (9-16); Calcium 8.5 mg/dL (8.4-10.2); Carbon Dioxide 27 mmol/L (22-29); Chloride 108 mmol/L (96-108); Creatinine Clr Calc Pharmacy 81.8; Estimated Glomerular Filt Rate > 60; Glucose Fasting 83 mg/dL (60-99); Potassium 3.6 mmol/L (3.3-5.1); Sodium 141 mmol/L (135-145)
[2021-09-11] MEDS: Fluticasone Propionate 100 MCG BLST.W.DEV 1 PUFF INHALE ×2 (09:14→20:08)
[2021-09-11] MEDS: Sucralfate Oral Suspension 1 GM/10 ML ORAL.SUSP PO ×3 (09:28→20:26)
[2021-09-11] MEDS: gemfibroziL 600 MG TABLET PO (09:29)
[2021-09-11] MEDS: Metoprolol Succinate ER 25 MG TAB.ER.24H 75 MG PO (09:33)
[2021-09-11] MEDS: Donepezil HCl 10 MG TABLET PO (09:33)
[2021-09-11] MEDS: Escitalopram Oxalate 10 MG TABLET PO (09:34)
[2021-09-11] MEDS: Pantoprazole Sodium 80 MG in 0.9 % Sodium Chloride 80 ML 10 MG IV ×2 (10:35→16:49)
--- NOTE | 2021-09-11 13:14 | P.PNIM_ITS ---
Subjective Subjective Date of Service: 09/11/21 Interval History: f/u on GIB, acute blood loss anemia requiring emergent EGD on09/08 Interval history: No further bleeding overnights, and repeat H/H been fairly stable and she remains hemodynamically stable. Tolerating liquid diet Review of Systems no bleeding, no n/v Physical Exam Vital Signs: Vital Signs: Last Vital Signs Temp 97.9 F 09/11/21 11:56 Pulse 86 09/11/21 11:56 Resp 17 09/11/21 11:56 BP 120/61 09/11/21 11:56 Pulse Ox 96 09/11/21 11:56 O2 Del Method 09/11/21 11:56 O2 Flow Rate 5 09/08/21 20:15 BMI result Body Mass Index 33.7 Const: Other: General: AO X 3, no acute distress Resp: CTA bilateral CVS: S1,S2,RRR GI: +BS, NT, no distention Skin: No rash Neuro: motor grossly intact Psych: appropriate affect Objective Data Active Medications Acetaminophen (Acetaminophen 325 Mg Tablet) 650 mg PO Q6H PRN PRN Reason: Pain, Mild (Pain Scale 1-3) Albuterol Sulfate (Albuterol Sulfate 90 Mcg 8 Gm Inhaler) 2 puff INHALE Q4H PRN PRN Reason: bronchospasm Donepezil HCl (Donepezil Hcl 10 Mg Tablet) 10 mg PO DAILY [facility] Last Admin: 09/11/21 09:33 Dose: 10 mg Documented By: BETTIE Escitalopram Oxalate (Escitalopram Oxalate 10 Mg Tablet) 10 mg PO DAILY [facility] Last Admin: 09/11/21 09:34 Dose: 10 mg Documented By: BETTIE Fluticasone Propionate (Fluticasone Propionate Nasal 16 Gm [place]) 1 spray NOSTRIL-B DAILY [facility] Last Admin: 09/11/21 09:53 Dose: Not Given Documented By: BETTIE Non-Admin Reason: Previously Administered Fluticasone Propionate (Fluticasone Propionate 100 Mcg Blst.W.Dev) 1 puff INHALE RBID [facility] Last Admin: 09/11/21 09:14 Dose: 1 puff Documented By: JUSTYN Gemfibrozil (Gemfibrozil 600 Mg Tablet) 600 mg PO DAILY [facility] Last Admin: 09/11/21 09:29 Dose: 600 mg Documented By: BETTIE Pantoprazole Sodium 80 mg/ (Sodium Chloride) 100 mls @ 10 mls/hr IV .Q10H [facility] Last Admin: 09/11/21 10:35 Dose: 8 mg/hr, 10 mls/hr Documented By: BETTIE Melatonin (Melatonin 3 Mg Tablet) 6 mg PO BEDTIME PRN PRN Reason: Insomnia Metoprolol Succinate (Metoprolol Succinate Er 25 Mg Tab.Er.24h) 75 mg PO DAILY [facility]; Protocol Last Admin: 09/11/21 09:33 Dose: 75 mg Documented By: BETTIE Ondansetron HCl (Ondansetron Hcl 4 Mg/2 Ml Vial) 4 mg IVPUSH Q8H PRN PRN Reason: Nausea and Vomiting Pharmacy Consult (Consult Rx Perform Med Rec) 1 each MISCELLANE ONCE PRN PRN Reason: Consult order Sodium Chloride (0.9 % Sodium Chloride Flush 3 Ml Syringe) 3 ml IVFLUSH QSHIFT [facility] Last Admin: 09/11/21 09:35 Dose: Not Given Documented By: BETTIE Non-Admin Reason: IV Running Sucralfate (Sucralfate Oral Suspension 1 Gm/10 Ml Oral.Susp) 1 gm PO QIDACHS [facility] Last Admin: 09/11/21 09:28 Dose: 1 gm Documented By: BETTIE Labs CBC & Chem 7: 09/11/21 06:16 09/11/21 06:16 Labs: Laboratory Results - last 24 hr 09/10/21 09/11/21 09/11/21 14:22 06:16 06:16 MCV 93.0 93.0 MCH 29.9 30.4 MCHC 32.2 32.7 RDW 15.9 15.7 Plt Count 171 181 MPV 9.9 10.9 Immature Gran % (Auto) 0.3 Neut % (Auto) 69.1 Lymph % (Auto) 14.0 L [place] % (Auto) 11.5 H Eos % (Auto) 4.6 H Baso % (Auto) 0.5 Lymph # (Auto) 0.9 L [place] # (Auto) 0.8 Eos # (Auto) 0.3 Baso # (Auto) 0.0 Abs Immat Gran (auto) 0.02 Absolute Neuts (auto) 4.6 Absolute Nucleated RBC 0.030 H 0.000 Nucleated RBC % (auto) 0.4 H 0.0 Anion Gap 10 L Estim Creat Clear Calc 81.8 Estimated GFR > 60 Fasting Glucose 83 Calcium 8.5 Assessment and Plan (1) Chronic a-fib: Status: Acute (2) Acute blood loss anemia: Status: Acute (3) Acute GI bleeding: Status: Acute Plan 80/ with AFIB on Xarelto here with Melena and hematochezia, acute blood loss anemia tachycardia reflecting anemia 1/ Acute blood loss anemia from likely upper GIB, -s/p Kcentra, Vit K, FFP, Octreotide, IV PPI -EGD 09/[address] Hernández--5mm gastric ulcer at post gastric wall -serial H/H signficantly better hgb 6.9 to 8.1 now, s/p 4 units of RBC, up to 3 melanotic stools yesterday but no shift in H/H -continue holding xarelto, continue IV PP, Sucralfate and start, NPO for now-- Repeat EGD with any indication of active bleed but doesn't appear to be the case right now -continue following H/H -Advance to full liquid 2/ Chronic AFIB--rate controlled -obviously no Xarelto, continue metoprolol DVT prophylaxis: compression device Need for inpatient: ongoing mangement for acute gib, gastric ulcer requiring frequent CBC, IV PPI and may need further transfusion and repeat endoscopy Quality Stroke Does the patient have a stroke diagnosis?: No VTE Prior VTE?: No VTE Risk Level:: Medical - moderate - high VTE Device Contraindication: N/A - Device Ordered VTE Drug Contraindication: Treatment Not Tolerated
[2021-09-11 16:34] LABS: Hematocrit 27.9 % (37.0-47.0)
[2021-09-11 16:48] LABS: Blood Urea Nitrogen 10 mg/dL (9-16); Creatinine Clr Calc Pharmacy 78.2; Estimated Glomerular Filt Rate > 60
[2021-09-11] MEDS: 0.9 % Sodium Chloride Flush 3 ML SYRINGE IVFLUSH ×2 (16:49→20:27)
--- NOTE | 2021-09-11 17:00 | PM.GIPN ---
Subjective Subjective Date of Service: 09/11/21 Interval History: Continues to feel OK. But still passing dark and/or bloody stools . Denies abdominal pain, N/V, anorexia. VSS Critical Care Time (minutes): 0 Physical Exam Vital Signs: Vital Signs: Last Vital Signs Temp 97.4 F 09/11/21 15:15 Pulse 72 09/11/21 15:15 Resp 20 09/11/21 15:15 BP 123/69 09/11/21 15:15 Pulse Ox 97 09/11/21 15:15 O2 Del Method 09/11/21 11:56 O2 Flow Rate 5 09/08/21 20:15 BMI result Body Mass Index 33.7 Const: General: cooperative, comfortable, no acute distress, alert and awake GI: Other: Nondistended, soft, NT Skin: Other: Warm and dry Objective Data Labs CBC & Chem 7: 09/11/21 16:19 09/11/21 16:19 Labs: Laboratory Results - last 24 hr 09/10/21 09/10/21 09/11/21 17:07 20:56 06:16 WBC 6.6 RBC 2.86 L Hgb 9.1 L 9.2 L 8.7 L Hct 27.9 L 28.1 L 26.6 L MCV 93.0 MCH 30.4 MCHC 32.7 RDW 15.7 Plt Count 181 MPV 10.9 Immature Gran % (Auto) 0.3 Neut % (Auto) 69.1 Lymph % (Auto) 14.0 L [place] % (Auto) 11.5 H Eos % (Auto) 4.6 H Baso % (Auto) 0.5 Lymph # (Auto) 0.9 L [place] # (Auto) 0.8 Eos # (Auto) 0.3 Baso # (Auto) 0.0 Abs Immat Gran (auto) 0.02 Absolute Neuts (auto) 4.6 Absolute Nucleated RBC 0.000 Nucleated RBC % (auto) 0.0 Sodium Potassium Chloride Carbon Dioxide Anion Gap BUN Creatinine Estim Creat Clear Calc Estimated GFR Fasting Glucose Calcium 09/11/21 09/11/21 09/11/21 06:16 16:19 16:19 WBC RBC Hgb 9.0 L Hct 27.9 L MCV MCH MCHC RDW Plt Count MPV Immature Gran % (Auto) Neut % (Auto) Lymph % (Auto) [place] % (Auto) Eos % (Auto) Baso % (Auto) Lymph # (Auto) [place] # (Auto) Eos # (Auto) Baso # (Auto) Abs Immat Gran (auto) Absolute Neuts (auto) Absolute Nucleated RBC Nucleated RBC % (auto) Sodium 141 Potassium 3.6 Chloride 108 Carbon Dioxide 27 Anion Gap 10 L BUN 11 10 Creatinine 0.67 0.70 Estim Creat Clear Calc 81.8 78.2 Estimated GFR > 60 > 60 Fasting Glucose 83 Calcium 8.5 Procedures Date of Service Date of Service: 09/11/21 Progress Note: A&P Assessment and plan (1) Acute GI bleeding: Status: Acute Assessment and Plan: Imp: UGI Bleed. She appears quite stable despite the report of the dark and bloody stools. Her Hgb, including her 4PM count, remains very stable and her BUN remains normal at 10(it had been > 50 on admission during the acute bleeding). As such, I don't think she is having any ongoing active bleeding at this time. I suspect this reflects passage of old blood from her original bleed. Rec: F/U labs in AM. Continue to advance diet and change to po PPI omeprazole 40mg in AM 09/12/2021 if things remain stable. Continue the oral PPI long-term. Continue Carafate for 1 month. Avoid all aspirin and NSAIDs(she was using occasional Aleve at home) ad terminal makeup operator. Hold Xarelto for another 2 weeks. If she remains stable she could be discharged later in the day on 09/12 or on 09/13 from my standpoint. She should have an outpatient CBC by next week. I can arrange for outpatient follow up. Please call me if problems arise before discharge. Thanks Time Spent With Patient Time: Total time spent is greater than 50% in coordination of care (as documented) at patient's floor/unit and/or counseling patient: Quality Stroke Does the patient have a stroke diagnosis?: No VTE Prior VTE?: No VTE Risk Level:: Medical - moderate - high VTE Device Contraindication: N/A - Device Ordered VTE Drug Contraindication: Treatment Not Tolerated
[2021-09-12] VITALS (7 sets, daily range): BP systolic 110–134; BP diastolic 64–72; PULSE 74–93; RESP 15–20; TEMP 36.4–37; O2SAT 95–98
[2021-09-12] MEDS: Pantoprazole Sodium 80 MG in 0.9 % Sodium Chloride 80 ML 10 MG IV (04:56)
[2021-09-12 07:17] LABS: Hematocrit 28.2 % (37.0-47.0); Hemoglobin 9.2 g/dl (12.0-16.0); Mean Corpuscular HGB Conc 32.6 g/dl (31.0-35.0); Mean Corpuscular Hemoglobin 30.3 pg (27.0-33.0); Mean Corpuscular Volume 92.8 fL (80.0-98.0); Platelet Count 159 X10*3/uL (160-400); Red Blood Count 3.04 X10*6/uL (4.20-5.50); Red Cell Distribution Width 15.9 % (11.0-16.0); White Blood Count 7.2 X10*3/uL (4.8-10.8)
[2021-09-12 07:36] LABS: Anion Gap 13 (12-20); Blood Urea Nitrogen 7 mg/dL (9-16); Calcium 8.4 mg/dL (8.4-10.2); Carbon Dioxide 25 mmol/L (22-29); Chloride 106 mmol/L (96-108); Estimated Glomerular Filt Rate > 60; Glucose Fasting 87 mg/dL (60-99); Potassium 3.9 mmol/L (3.3-5.1); Sodium 140 mmol/L (135-145)
[2021-09-12] MEDS: Fluticasone Propionate 100 MCG BLST.W.DEV 1 PUFF INHALE ×2 (07:37→19:24)
[2021-09-12] MEDS: gemfibroziL 600 MG TABLET PO (10:03)
[2021-09-12] MEDS: Metoprolol Succinate ER 25 MG TAB.ER.24H 75 MG PO (10:03)
[2021-09-12] MEDS: Donepezil HCl 10 MG TABLET PO (10:04)
[2021-09-12] MEDS: Fluticasone Propionate Nasal 16 GM SPRAY 1 SPRAY NOSTRIL-B (10:04)
[2021-09-12] MEDS: Sucralfate Oral Suspension 1 GM/10 ML ORAL.SUSP PO ×4 (10:04→20:38)
[2021-09-12] MEDS: Escitalopram Oxalate 10 MG TABLET PO (10:04)
--- NOTE | 2021-09-12 11:22 | HO.PM.IMPN ---
Subjective Subjective Date of Service: 09/12/21 Interval History: f/u on GIB, acute blood loss anemia requiring emergent EGD on09/08 Interval history:H/H is stable, no bleeding Review of Systems no bleeding, no n/v Physical Exam Vital Signs: Vital Signs: Last Vital Signs Temp 97.6 F 09/12/21 03:59 Pulse 81 09/12/21 07:37 Resp 18 09/12/21 07:37 BP 134/68 09/12/21 03:59 Pulse Ox 97 09/12/21 03:59 O2 Del Method 09/12/21 03:59 O2 Flow Rate 5 09/08/21 20:15 BMI result Body Mass Index 33.7 Const: Other: General: AO X 3, no acute distress Resp: CTA bilateral CVS: S1,S2,RRR GI: +BS, NT, no distention Skin: No rash Neuro: motor grossly intact Psych: appropriate affect Objective Data Active Medications Acetaminophen (Acetaminophen 325 Mg Tablet) 650 mg PO Q6H PRN PRN Reason: Pain, Mild (Pain Scale 1-3) Albuterol Sulfate (Albuterol Sulfate 90 Mcg 8 Gm Inhaler) 2 puff INHALE Q4H PRN PRN Reason: bronchospasm Donepezil HCl (Donepezil Hcl 10 Mg Tablet) 10 mg PO DAILY [facility] Last Admin: 09/12/21 10:04 Dose: 10 mg Documented By: DIPAK-CHRISTOFER Escitalopram Oxalate (Escitalopram Oxalate 10 Mg Tablet) 10 mg PO DAILY [facility] Last Admin: 09/12/21 10:04 Dose: 10 mg Documented By: DIPAK-CHRISTOFER Fluticasone Propionate (Fluticasone Propionate Nasal 16 Gm [place]) 1 spray NOSTRIL-B DAILY [facility] Last Admin: 09/12/21 10:04 Dose: 1 spray Documented By: DIPAK-SHABBIRFA Fluticasone Propionate (Fluticasone Propionate 100 Mcg Blst.W.Dev) 1 puff INHALE RBID [facility] Last Admin: 09/12/21 07:37 Dose: 1 puff Documented By: BLASCL Gemfibrozil (Gemfibrozil 600 Mg Tablet) 600 mg PO DAILY [facility] Last Admin: 09/12/21 10:03 Dose: 600 mg Documented By: DIPAK-CHRISTOFER Melatonin (Melatonin 3 Mg Tablet) 6 mg PO BEDTIME PRN PRN Reason: Insomnia Metoprolol Succinate (Metoprolol Succinate Er 25 Mg Tab.Er.24h) 75 mg PO DAILY [facility]; Protocol Last Admin: 09/12/21 10:03 Dose: 75 mg Documented By: MAXX Omeprazole (Omeprazole 40 Mg Capsule.) 40 mg PO DAILY@0630 [facility] Ondansetron HCl (Ondansetron Hcl 4 Mg/2 Ml Vial) 4 mg IVPUSH Q8H PRN PRN Reason: Nausea and Vomiting Pharmacy Consult (Consult Rx Perform Med Rec) 1 each MISCELLANE ONCE PRN PRN Reason: Consult order Sodium Chloride (0.9 % Sodium Chloride Flush 3 Ml Syringe) 3 ml IVFLUSH QSHIFT [facility] Last Admin: 09/12/21 09:54 Dose: Not Given Documented By: MAXX Non-Admin Reason: NPO Sucralfate (Sucralfate Oral Suspension 1 Gm/10 Ml Oral.Susp) 1 gm PO QIDACHS [facility] Last Admin: 09/12/21 10:04 Dose: 1 gm Documented By: MAXX Labs CBC & Chem 7: 09/12/21 06:29 09/12/21 06:29 Labs: Laboratory Results - last 24 hr 09/11/21 09/12/21 09/12/21 16:19 06:29 06:29 MCV 92.8 MCH 30.3 MCHC 32.6 RDW 15.9 Plt Count 159 L MPV 11.0 Absolute Nucleated RBC 0.000 Nucleated RBC % (auto) 0.0 Anion Gap 13 Estim Creat Clear Calc 78.2 83.0 Estimated GFR > 60 > 60 Fasting Glucose 87 Calcium 8.4 Assessment and Plan (1) Acute GI bleeding: Status: Acute (2) Acute blood loss anemia: Status: Acute (3) Chronic a-fib: Status: Acute Plan 80/ with AFIB on Xarelto here with Melena and hematochezia, acute blood loss anemia tachycardia reflecting anemia 1/ Acute blood loss anemia from likely upper GIB, -s/p Kcentra, Vit K, FFP, Octreotide, IV PPI -EGD 09/[address] Hernández--5mm gastric ulcer at post gastric wall -serial H/H signficantly better hgb 6.9 to 8.1 now, s/p 4 units of RBC, no further bleeding -continue holding xarelto, change PPI to PO, Sucralfate x 1 months, advnce to regular diet and if stable possible dc later today vs tomorrow morning. 2/ Chronic AFIB--rate controlled, will avoid xarelto x 2 weeks per Gi, metoprolol for rate DVT prophylaxis: compression device Need for inpatient: ongoing mangement for acute gib, gastric ulcer requiring frequent CBC, IV PPI and may need further transfusion and repeat endoscopy Out of bed and ambulate Quality Stroke Does the patient have a stroke diagnosis?: No VTE Prior VTE?: No VTE Risk Level:: Medical - moderate - high VTE Device Contraindication: N/A - Device Ordered VTE Drug Contraindication: Treatment Not Tolerated
[2021-09-12] MEDS: Omeprazole 40 MG CAPSULE.DR PO (12:20)
--- NOTE | 2021-09-12 14:05 | PC.NURSE ---
safety and fall precautions in place. call rush within reach. no acute complications. pt stated having minor discomfort in the lower quadrant of her abd stating its more discomfort and not pain, I don't need any meds for it.
--- NOTE | 2021-09-12 16:34 | MHC.CM.PN ---
EMR REVIEWED, ANTIC D/C ONCE TOLERATING REGULAR DIET, D/C PLAN CONT'S TO BE HOME NO SERVICES W/FRIEND FOR TRANSPORT.
[2021-09-12] MEDS: 0.9 % Sodium Chloride Flush 3 ML SYRINGE IVFLUSH (20:38)
[2021-09-13] VITALS: BP 131/73; PULSE 112; RESP 18; TEMP 37.1; O2SAT 94
[2021-09-13 04:00] VITALS: BP 135/69; PULSE 84; RESP 20; TEMP 36.8; O2SAT 98
[2021-09-13] MEDS: Omeprazole 40 MG CAPSULE.DR PO (06:00)
[2021-09-13] MEDS: Sucralfate Oral Suspension 1 GM/10 ML ORAL.SUSP PO ×2 (06:00→10:15)
[2021-09-13 06:44] LABS: Hematocrit 27.8 % (37.0-47.0); Mean Corpuscular HGB Conc 32.4 g/dl (31.0-35.0); Mean Corpuscular Hemoglobin 30.3 pg (27.0-33.0); Mean Corpuscular Volume 93.6 fL (80.0-98.0); Mean Platelet Volume 11.3 fL (9.4-12.3); Platelet Count 192 X10*3/uL (160-400); Red Blood Count 2.97 X10*6/uL (4.20-5.50); Red Cell Distribution Width 16.1 % (11.0-16.0); White Blood Count 9.4 X10*3/uL (4.8-10.8)
[2021-09-13 07:53] VITALS: BP 123/72; PULSE 83; RESP 17; TEMP 37.1; O2SAT 96
[2021-09-13] MEDS: Fluticasone Propionate 100 MCG BLST.W.DEV 1 PUFF INHALE (08:35)
[2021-09-13 08:38] VITALS: PULSE 91; RESP 18; O2SAT 95
--- NOTE | 2021-09-13 09:49 | MHC.CM.PN ---
Addendum entered by Phoebe Noble 09/13/21 11:26: PT DISCHARGED HOME SECOND IMM ADDRESSED 09/12/21 Original Note: PT EXPECTED TO DC HOME TODAY WITH NO SERVICES FAMILY TO TRANSPORT
--- NOTE | 2021-09-13 09:56 | PM.DS ---
DS: Providers Provider Date of Service: 09/13/21 Date of admission: 09/08/21 17:37 Primary care physician: Kallie Guerrero MD Consults: 09/08/21 20:33 Consult to Gastroenterology Routine Consulting Provider: Aries Hernández Reason for consultation: GI bleed DS: Diagnosis Discharge Diagnosis (1) Acute GI bleeding: Status: Acute (2) Acute blood loss anemia: Status: Acute (3) Chronic a-fib: Status: Acute DS: Summary Hospital Course Hospital Course: Chief Complaint: rectal bleed, coffee ground emesis 80 yo female? with chroni AFIB on Xarelto who has been in her usual until around 6 AM when she started having bouts of sergei and h hematemesis, she felt well yesterday, she no abdominal pain,? she takes no NSAID or steroid,? no history of anemia.? She was noted to have hemoglobin on 6.8, tachycardic? but no hypOtension. She is given Kcentra, Vit K and FFP, RBC, IV PPI, IVF and is being prep for EGD today. Hospital course: Presented with severe anemia in setting of xarelto use, and later noted to use NSAID as well. She was singicantly anemic with hemoglobin on 6 baseline around 13, tachycardic.. She was treated in the ED with IV Protnoix drip, Vitamin K and Kcentra and underwent emergent EGD on 09/08with the following finding and management recommendation by Dr. Hernández: 1. Small, approximately 5 mm lesion on a fold on the posterior gastric wall, just beneath the hiatal hernia, at 38cm. The lesion appeared to have had some central ulceration and surrounding erythema, but no bleeding nor visible vessel. This was the only area of suspicion in regard to a potential source of blood loss. Therefore, I applied 4 clips to the lesion along the fold with good deployment and good hemostasis. I also injected a total of 7cc of 1:10,000 Epi into the immediate surrounding tissue with good blanching of mucosa. 2.There was coffee grounds material throughout the stomach, but no active bleeding nor red blood was seen. 3.The hiatal hernia was large and its? mucosa appeared normal, as did the duodenum, remainder of the stomach, and the esophagus. She was transfused RBCs before and after EGD with total of 5 units transfused. The following day, she had epiodes of melanotic stools and yet H/H did not shift signficantly and we continued to watch this.. while she continued on IV PPI, Sucralfate and ultimtely diet was started with with liquid diet and now to regular diet.. There was thought that if she continued to bleed to have repeat EGD but at this point appear to be stable with no sings of bleeding and H/H trending up to hemoglobin of 9.2 and hematocrit of 28 which is up from 27 prior day.. There has no been any further bleeding today and will be transitioned to oral PPI, Sucralfate for 1 month, no NSAID, to hold Xarelto for 2 weeks, outaptient follow up with GI and PCP Final diagnoses Acute blood loss anemia Upper gi bleeding chronic atrial fibrilation Time Spent with Patient Time attestation: Total time spent providing and/or coordinating discharge services: Discharge coordination time: Greater than 30 minutes Quality: Safe Use of Opioids Does Pt have an Active Cancer Diagnosis on the Problem List?: No Quality: Stroke Does the patient have a stroke diagnosis?: No Physical Exam Vital Signs: Vital Signs: Selected Entries 09/13/21 07:53 Temperature 98.7 F Pulse Rate 83 Respiratory Rate 17 Blood Pressure 123/72 Pulse Oximetry 96 Oxygen Delivery Me thod Room Air General: AO X 3, no acute distress Resp: CTA bilateral CVS: S1,S2,RRR GI: +BS, NT, no distention Skin: No rash Neuro: motor grossly intact Psych: appropriate affect DS: Data Data Completed and Pending Labs on day of discharge: Laboratory Results - last 24 hr 09/11/21 09/11/21 09/12/21 16:19 16:19 06:29 WBC 7.2 RBC 3.04 L Hgb 9.0 L 9.2 L Hct 27.9 L 28.2 L MCV 92.8 MCH 30.3 MCHC 32.6 RDW 15.9 Plt Count 159 L MPV 11.0 Absolute Nucleated RBC 0.000 Nucleated RBC % (auto) 0.0 Sodium Potassium Chloride Carbon Dioxide Anion Gap BUN 10 Creatinine 0.70 Estim Creat Clear Calc 78.2 Estimated GFR > 60 Fasting Glucose Calcium 09/12/21 06:29 WBC RBC Hgb Hct MCV MCH MCHC RDW Plt Count MPV Absolute Nucleated RBC Nucleated RBC % (auto) Sodium 140 Potassium 3.9 Chloride 106 Carbon Dioxide 25 Anion Gap 13 BUN 7 L Creatinine 0.66 Estim Creat Clear Calc 83.0 Estimated GFR > 60 Fasting Glucose 87 Calcium 8.4 Discharge Plan Discharge Anticipated Discharge Date/Time: 09/13/21 09:49 Patient Disposition: Home, Self-Care Discharge Diagnosis: Acute GI bleed, acute blood loss anemia Referrals: Kallie Guerrero MD [Primary Care Provider] - 1 Week Discharge Medications: New sucralfate 100 mg/mL Suspension 1 g PO QIDACHS 30 Days Qty: 420 0RF Rx Instructions: enough for 30 days Continued citalopram 20 mg tablet 20 mg PO DAILY Qty: 90 0RF gemfibrozil 600 mg tablet 600 mg PO DAILY Qty: 90 1RF metoprolol succinate 50 mg tablet extended release 24 hr 75 mg PO DAILY 90 Days Qty: 135 3RF fluticasone propionate 50 mcg/actuation spray,suspension 1 spray intranasal DAILY 30 Days Qty: 16 2RF glucosamine sulfate [Glucosamine] 500 mg Tablet 500 mg PO DAILY Rx Instructions: administer with a meal coQ10 (ubiquinol) 200 mg Capsule 200 mg PO DAILY cod liver oil Capsule 1 cap PO DAILY Tumeric 1,000 mg PO DAILY omeprazole 40 mg capsule,delayed release(DR/EC) 40 mg PO DAILY Qty: 30 0RF donepezil 10 mg tablet 10 mg PO DAILY albuterol sulfate [Ventolin HFA] 90 mcg/actuation HFA aerosol inhaler 2 puff inhalation Q4-6H PRN (Reason: bronchospasm) 90 Days Qty: 3 4RF fluticasone propionate 44 mcg/actuation HFA aerosol inhaler 2 puff inhalation BID 90 Days Qty: 3 4RF Held Xarelto 20 mg tablet 20 mg PO DAILY 90 Days Qty: 90 3RF Hold Instructions: Resume on 09/25/21. restart on September 25 Discontinued sulfamethoxazole-trimethoprim [Bactrim DS] 800-160 mg tablet 1 tab PO BID 5 Days Qty: 10 0RF Rx Instructions: start two days before procedure, the day of procedure, and two days after procedure. Discharge Orders: Discharge Order (Routine); Ordered 09/13/21 Ordered By: Nathan Jones Diet: Advance to usual diet Activity on Discharge: As tolerated Stand Alone Forms: Patient Portal Discharge page Care Plan Goals: Full recovery from anemia and GI bleeding Health Concerns: GI bleeding, Stomach ulcer, anemia Plan of Treatment: Take Prilosec as directed Take Karafate as directed for 1 months Do not take aspirin, Motrin, Aleve or any other over the counter medication without checking with your Doctor Do not take Xarelton until starting September 25 2021 Follow up with your Doctor in a week... call for appointment Follow up with Dr. Hernández if you notice any form of bleeding in your bowel movement, feel dizzy, sob of breath, chest pain or any other symptoms of concern pelase call [phone] Assessment: as above
[2021-09-13] MEDS: Metoprolol Succinate ER 25 MG TAB.ER.24H 75 MG PO (10:14)
[2021-09-13] MEDS: Donepezil HCl 10 MG TABLET PO (10:15)
[2021-09-13] MEDS: Escitalopram Oxalate 10 MG TABLET PO (10:15)
[2021-09-13] MEDS: gemfibroziL 600 MG TABLET PO (10:15)
[2021-09-13] MEDS: 0.9 % Sodium Chloride Flush 3 ML SYRINGE IVFLUSH (10:16)
[2021-09-13] MEDS: Fluticasone Propionate Nasal 16 GM SPRAY 1 SPRAY NOSTRIL-B (10:17)
[2021-09-13 11:34] VITALS: BP 112/63; PULSE 90; RESP 17; TEMP 36.9; O2SAT 98
== END 2021-09-13 13:30 | disposition home or self-care (01) | DRG 378 ==
LOC: HO.ED 16:09 → HO.EDOVER 17:44 → HO.IMC 19:49
PROVIDERS: Internal Medicine; Admitting Provider Internal Medicine; Emergency Provider Emergency Medicine; PCP Internal Medicine; Visit Provider Internal Medicine
PROC: 0DJ08ZZ Inspection of Upper Intestinal Tract, Via Natural or Artificial Opening Endoscopic (ICD-10-PCS; CPT 43235; principal; 2021-09-08 15:30)
DX: K31.82 Dieulafoy lesion (hemorrhagic) of stomach and duodenum (principal); D62 Acute posthemorrhagic anemia; I48.20 Chronic atrial fibrillation, unspecified; K44.9 Diaphragmatic hernia without obstruction or gangrene; Z20.822 Contact with and (suspected) exposure to COVID-19; Z88.0 Allergy status to penicillin; Z88.8 Allergy status to other drugs, medicaments and biological substances; Z79.01 Long term (current) use of anticoagulants; Z79.51 Long term (current) use of inhaled steroids; Z79.899 Other long term (current) drug therapy
CPT/HCPCS: 36415; 36430; 80048; 80076; 82272; 82550; 82565; 83690; 83735; 84484; 84520; 85014; 85018; 85025; 85027; 85610; 86850; 86900; 86901; 86920; 86923; 87635; 93005; 94640; 94664; 96361; 96365; 96375; 99285; J0171; J2354; J2405; J3010; J3430; J7168; P9016; P9017

== ENCOUNTER 2021-09-15 21:38 | Emergency (ER) | payer MEDICARE, SELFPAY ==
--- NOTE | ~2021-09-15 | US_ITS ---
EXAMINATION: US VENOUS ULTRASOUND WITH DOPPLER LOWER EXTREMITY, LEFT CLINICAL INFORMATION: Right lower extremity edema, pain and swelling COMPARISON: Prior left leg ultrasound 09/19/2013 TECHNIQUE: Ultrasound of the deep veins is performed from the hip to the calf with compression sonography and color and pulse Doppler assessment. Spectral analysis with color-flow imaging is performed. FINDINGS: There is normal venous compression and respiratory variation and augmented flow. The visualized common femoral vein, superficial femoral vein, profunda femoral vein, popliteal vein, and the trifurcation region shows no evidence of deep venous thrombosis. Limited visualization of the peroneal veins because of marked edema. There is no significant popliteal fossa cyst. Multiple normal-appearing inguinal lymph nodes are present the largest measuring 1.7 cm. If the patient's symptoms persist, followup ultrasound in 5 days 7 days might be of value to exclude proximal propagation from a non-visualized calf vein. US/US venous duplex LE IMPRESSION: No DVT demonstrated in the left lower extremity.
[2021-09-15 21:46] VITALS: BP 121/79; PULSE 104; RESP 18; TEMP 37.4; O2SAT 99; BMI 31.3
[2021-09-15 22:15] LABS: MANUAL DIFF FLAG NO
[2021-09-15 22:19] LABS: Basophils Percent Auto 0.4 % (0-2); Eosinophils Absolute Auto 0.4 X10*3/uL (0.0-0.4); Eosinophils Percent Auto 4.2 % (0-4); Hematocrit 32.7 % (37.0-47.0); Hemoglobin 10.5 g/dl (12.0-16.0); Imm Gran Abs Auto 0.05 X10*3/uL (0.00-0.03); Imm Gran Pct Auto 0.5 % (0.0-0.4); Lymphocytes Absolute Auto 0.9 X10*3/uL (1.2-4.9); Lymphocytes Percent Auto 9.1 % (20-40); Mean Corpuscular HGB Conc 32.1 g/dl (31.0-35.0); Mean Corpuscular Hemoglobin 30.1 pg (27.0-33.0); Mean Corpuscular Volume 93.7 fL (80.0-98.0); Monocytes Percent Auto 9.7 % (2-11); Neutrophils Absolute Auto 7.6 x10*3/uL (2.0-8.3); Neutrophils Percent Auto 76.1 % (45-73); Platelet Count 319 X10*3/uL (160-400); Red Blood Count 3.49 X10*6/uL (4.20-5.50); Red Cell Distribution Width 15.9 % (11.0-16.0)
[2021-09-15 22:41] LABS: Alanine Aminotransferase 19 U/L (0-31); Albumin Level 3.8 g/dL (3.5-5.0); Alkaline Phosphatase 78 U/L (39-117); Anion Gap 16 (12-20); Aspartate Amino Transferase 42 U/L (5-31); Bilirubin Total 0.5 mg/dL (0.0-1.0); Blood Urea Nitrogen 11 mg/dL (9-16); Calcium 9.4 mg/dL (8.4-10.2); Carbon Dioxide 23 mmol/L (22-29); Chloride 105 mmol/L (96-108); Creatinine Clr Calc Pharmacy 78.7; Estimated Glomerular Filt Rate > 60; Glucose Random 93 mg/dL (60-115); Potassium 4.8 mmol/L (3.3-5.1); Sodium 139 mmol/L (135-145); Total Protein 6.4 g/dL (6.5-8.0)
[2021-09-15 22:46] LABS: B Type Natriuretic Peptide 119 pg/mL (<100)
--- NOTE | 2021-09-15 23:19 | ED_ITS ---
HPI - General Adult General Chief complaint: General Medical Stated complaint: lymphedema, pain in site Time Seen by Provider: 09/15/21 23:19 Source: patient Mode of arrival: ambulatory Limitations: no limitations History of Present Illness HPI narrative: Patient is a 80 year old female presenting to the emergency department today with bilateral lower leg swelling and left lower leg pain. Patient states that for the last couple of days, she has had left lower leg pain and more swelling than usual. Patient states that she has lymphedema and sees a specialist. Patient denies any dizziness, lightheadedness, abdominal pain, nausea, vomiting, fever, chills, blurry vision, double vision, loss of vision, chest pain, difficulty breathing, shortness of breath, back pain, night sweats, pain with urination, increased urinary frequency, increased urinary urgency, blood in her urine or stool, syncope or a near syncopal episode, recent trauma or falls, bowel incontinence, bladder incontinence, bowel retention, bladder retention, or any other complaints at this time. Onset (ago): day(s) Location: left and lower extremity Radiation: non-radiation Severity: mild Severity scale (1-10): 1 Relieving factors: none Exacerbating factors: none Associated symptoms: denies other symptoms Treatments prior to arrival: none Related Data Home Medications Medication Instructions Recorded Confirmed donepezil 10 mg tablet 10 mg PO DAILY 11/27/20 09/08/21 Tumeric 1,000 mg PO DAILY 09/08/21 09/08/21 coQ10 (ubiquinol) 200 mg capsule 200 mg PO DAILY 09/08/21 09/08/21 cod liver oil 1 cap PO DAILY 09/08/21 09/08/21 glucosamine sulfate 500 mg tablet 500 mg PO DAILY 09/08/21 09/08/21 (Glucosamine) Previous Rx's Medication Instructions Recorded citalopram 20 mg tablet 20 mg PO DAILY #90 tabs 02/26/20 albuterol sulfate 90 mcg/actuation 2 puff inhalation Q4-6H PRN 06/26/20 aerosol inhaler (Ventolin HFA) bronchospasm 90 days #3 ea fluticasone propionate 44 2 puff inhalation BID 90 days #3 ea 06/26/20 mcg/actuation HFA aerosol inhaler rivaroxaban 20 mg tablet (Xarelto) 20 mg PO DAILY 90 days #90 tabs 10/08/20 gemfibrozil 600 mg tablet 600 mg PO DAILY #90 tabs 04/15/21 metoprolol succinate 50 mg 75 mg PO DAILY 90 days #135 tabs 05/26/21 tablet,extended release 24 hr fluticasone propionate 50 1 spray intranasal DAILY 30 days 08/11/21 mcg/actuation nasal #16 grams spray,suspension omeprazole 40 mg capsule,delayed 40 mg PO DAILY #30 caps 09/12/21 release sucralfate 100 mg/mL oral 1 g (10 mL) PO QIDACHS 30 days 09/12/21 suspension #420 mL doxycycline hyclate 100 mg tablet 100 mg PO BID 7 days #14 tabs 09/16/21 Allergies Allergy/AdvReac Type Severity Reaction Status Date / Time lorazepam Allergy Unknown unknown Verified 08/29/21 13:30 pantoprazole Allergy Unknown NAUSEA Verified 08/29/21 13:30 amoxicillin [AMOXICILLIN] AdvReac Intermediate NAUSEA/VOMI Verified 08/29/21 13:30 TING Review of Systems Constitutional: Constitutional: Reports no additional constitutional complaints, Denies chills, Denies fever(s) and Denies night sweats Eyes: Eyes: Reports no additional eye complaints, Denies blurry vision, Denies change in vision, Denies diplopia, Denies eye discharge, Denies loss of vision and Denies eye pain ENT: Denies dizziness Cardiovascular: Cardiovascular: Reports no additional cardiovascular complaints, Denies chest pain, Reports pedal edema, Reports leg edema, Denies lightheadedness, Denies Loss of Consciousness and Denies dyspnea Respiratory: Respiratory: Reports no additional respiratory complaints and Denies dyspnea Gastrointestinal: Gastrointestinal: Reports no additional gastrointestinal complaints, Denies abdominal pain, Denies melena, Denies hematochezia, Denies change in bowel habits and Denies change in stool character Genitourinary: Genitourinary: Denies hematuria, Denies urinary frequency, Denies dysuria, Denies urinary incontinence, Denies urinary hesitancy and Denies urinary urgency Musculoskeletal: Musculoskeletal: Reports no additional musculoskeletal complaints, Denies numbness and Denies tingling Neurologic: Denies dizziness, Denies loss of vision, Denies numbness and Denies tingling Psychiatric: Psychiatric: Reports no additional psychiatric complaints Endocrine: Endocrine: Reports no additional endocrine complaints Hematologic/Lymphatic: Hematologic/Lymphatic: Reports no additional hematologi c/lymphatic complaints Allergic/Immunologic: Allergic/Immunologic: Reports no additional allergic/immunologic complaints [facility] Past Medical History Attestation statement: The following information was validated with the patient. Source: old records reviewed Medical History Acute GI bleeding Chronic a-fib Moderate persistent asthma Family History Family History Father No problems noted. Mother Cerebral brain hemorrhage Social History Social History Household Members: None Housing: House Do you presently have visiting nurse or other home services: No Alcohol intake: current Alcohol intake frequency: a few times a month Patient Tobacco Use Status: Never used Tobacco e-Cigarette/Vaping Use: Never Used Second Hand Smoke Exposure: Yes Advance Directives: Yes Advance Directives on File: Yes Advance Directives Date on File: 09/15/21 service: No Current occupational status: retired Physical Exam ED Vital Signs: Vital Signs - 24 hr 09/15/21 21:46 09/15/21 23:33 Temperature 99.4 F Pulse Rate 104 H 97 Respiratory Rate 18 16 Blood Pressure 121/79 125/70 Pulse Oximetry 99 97 Oxygen Delivery Method Room Air Room Air BMI result Body Mass Index 31.3 Const General: cooperative, no acute distress, alert and awake Nutritional Appearance: well nourished Orientation/consciousness: patient oriented x3 Limitations: no limitations HENMT Head: Yes normal to inspection and Yes atraumatic Ears: hearing grossly normal bilaterally and external ears normal General nose exam: Normal external nose present, no nasal discharge noted and no epistaxis Face and sinus: Yes normal facial exam, No abrasion and No laceration Mouth: Normal oral and palatal mucosa present, no drooling and no muffled voice Eyes General: appearance normal, both eyes and all related structures Periorbital: periorbital findings normal Eyelids: Yes eyelids normal Conjunctivae: conjunctivae normal Pupils: Equal, round and reactive pupils present EOM: EOMs intact bilaterally Neck Neck: Yes normal visual inspection, Yes full ROM and Yes no lymphadenopathy Chest Chest palpation & inspection: normal inspection of the chest Resp Effort & Inspection: normal respiratory effort and able to speak in complete sentences Auscultation: clear to auscultation bilaterally Cardio Rate: regular rate Rhythm: regular rhythm GI Inspection: Yes normal to inspection Neuro General: patient oriented x3 and moves all extremities Cranial nerves: Yes Equal, round and reactive pupils present Cognition (Neuro): normal cognition Motor exam (neuro): 5/5 motor strength present throughout Sensory Exam: Normal double simultaneous stimulation for sensation Coordination: [id number] test normal Extrem Other: bilateral lower leg edema, minimal redness and warmth to the left lower extremity General: Yes full ROM and Yes capillary refill normal Psych Appearance: grossly normal Mental Status: mental status grossly normal Affect: normal affect Attitude: cooperative Thought process: Normal thought process present Thought content: Normal thought content present Insight: Good insight present (Psych) Medical Decision Making MDM Narrative Medical decision making narrative: Patient is a 80 year old female presenting to the emergency department today with left lower leg swelling and pain. Patient's physical exam showed significant edema to bilateral lower extremities with minimal warmth and redness to the left lower leg. Patient's blood work was unremarkable. Patient's left lower leg venous US showed no acute process. I explained my physical exam findings as well as all test results to the patient. I answered all questions asked by the patient. Patient's legs were wrapped with nelida bandages in compression stocking style. Patient to be covered for a possible cellulitis of the left lower leg. I stressed the importance of the patient taking his medication as prescribed. I stressed the importance of the patient following up with his primary care provider. I stressed the importance of the patient returning to the emergency department immediately if his symptoms were to worsen or if she were to develop any dizziness, shortness of breath, difficulty breathing, chest pain, blurry vision, loss of vision, nausea, vomiting, abdominal pain, fever, chills, back pain, or any other complaints. Patient verbalized agreement and understanding with this treatment plan and discharge. Differential Diagnosis Differential Diagnosis: lymphedema, cellulitis Medical Records Medical records reviewed: Yes I reviewed the patient's medical records. Lab Data Lab results reviewed: Yes I reviewed the patient's lab results. Result diagrams: 09/15/21 22:11 09/15/21 22:11 Labs: Lab Results 09/15/21 09/15/21 09/15/21 Range/Units 22:11 22:11 22:11 WBC 10.0 (4.8-10.8) X10*3/uL RBC 3.49 L (4.20-5.50) X10*6/uL Hgb 10.5 L (12.0-16.0) g/dl Hct 32.7 L (37.0-47.0) % MCV 93.7 (80.0-98.0) fL MCH 30.1 (27.0-33.0) pg MCHC 32.1 (31.0-35.0) g/dl RDW 15.9 (11.0-16.0) % Plt Count 319 D (160-400) X10*3/uL MPV 11.0 (9.4-12.3) fL Immature Gran % (Auto) 0.5 H (0.0-0.4) % Neut % (Auto) 76.1 H (45-73) % Lymph % (Auto) 9.1 L (20-40) % [place] % (Auto) 9.7 (2-11) % Eos % (Auto) 4.2 H (0-4) % Baso % (Auto) 0.4 (0-2) % Lymph # (Auto) 0.9 L (1.2-4.9) X10*3/uL [place] # (Auto) 1.0 (0.1-1.2) X10*3/uL Eos # (Auto) 0.4 (0.0-0.4) X10*3/uL Baso # (Auto) 0.0 (0.0-0.2) X10*3/uL Abs Immat Gran (auto) 0.05 H (0.00-0.03) X10*3/uL Absolute Neuts (auto) 7.6 (2.0-8.3) x10*3/uL Absolute Nucleated RBC 0.000 (0.0-0.012) X10*3/uL Nucleated RBC % (auto) 0.0 (0.0-0.2) /100WBC Sodium 139 (135-145) mmol/L Potassium 4.8 D (3.3-5.1) mmol/L Chloride 105 (96-108) mmol/L Carbon Dioxide 23 (22-29) mmol/L Anion Gap 16 (12-20) BUN 11 D (9-16) mg/dL Creatinine 0.67 (0.5-1.4) mg/dL Estim Creat Clear Calc 78.7 Estimated GFR > 60 Random Glucose 93 (60-115) mg/dL Calcium 9.4 D (8.4-10.2) mg/dL Total Bilirubin 0.5 (0.0-1.0) mg/dL AST 42 H D (5-31) U/L ALT 19 (0-31) U/L Alkaline Phosphatase 78 D (39-117) U/L B-Natriuretic Peptide 119 H (<100) pg/mL Total Protein 6.4 L (6.5-8.0) g/dL Albumin 3.8 (3.5-5.0) g/dL Imaging Data Venous US: Attestation: I personally reviewed and interpreted this imaging study as follows: My impression: No acute process. Radiologist's impression: EXAMINATION:? US VENOUS ULTRASOUND WITH DOPPLER LOWER EXTREMITY, LEFT CLINICAL INFORMATION:? Right lower extremity edema, pain and swelling COMPARISON:? Prior left leg ultrasound 09/19/2013 TECHNIQUE: Ultrasound of the deep veins is performed from the hip to the calf with compression sonography and color and pulse Doppler assessment. Spectral analysis with color-flow imaging is performed. FINDINGS: There is normal venous compression and respiratory variation and augmented flow. The visualized common femoral vein, superficial femoral vein, profunda femoral vein, popliteal vein, and the trifurcation region shows no evidence of deep venous thrombosis. Limited visualization of the peroneal veins because of marked edema. There is no significant popliteal fossa cyst. Multiple normal-appearing inguinal lymph nodes are present the largest measuring 1.7 cm. If the patient's symptoms persist, followup ultrasound in 5 days 7 days might be of value to exclude proximal propagation from a non-visualized calf vein. US/US venous duplex LE LT IMPRESSION: No DVT demonstrated in the left lower extremity. Dictated By: Santi Gracia MD Signed By: Electronically signed by Santi Gracia MD 09/16/21 0055 Discharge Plan Discharge Clinical Impression: Cellulitis, Lymphedema Patient Disposition: Home, Self-Care Instructions: Cellulitis (ED), Lymphedema (ED) Additional Instructions: Follow up with your primary care provider. Return to the emergency department immediately if your symptoms worsen or if you develop any dizziness, shortness of breath, difficulty breathing, chest pain, blurry vision, loss of vision, nausea, vomiting, abdominal pain, fever, chills, back pain, or any other complaints. Prescriptions: New doxycycline hyclate 100 mg tablet 100 mg PO BID 7 Days Qty: 14 0RF No Action citalopram 20 mg tablet 20 mg PO DAILY Qty: 90 0RF Xarelto 20 mg tablet 20 mg PO DAILY 90 Days Qty: 90 3RF Hold Instructions: Resume on 09/25/21. restart on September 25 gemfibrozil 600 mg tablet 600 mg PO DAILY Qty: 90 1RF metoprolol succinate 50 mg tablet extended release 24 hr 75 mg PO DAILY 90 Days Qty: 135 3RF fluticasone propionate 50 mcg/actuation spray,suspension 1 spray intranasal DAILY 30 Days Qty: 16 2RF glucosamine sulfate [Glucosamine] 500 mg Tablet 500 mg PO DAILY Rx Instructions: administer with a meal coQ10 (ubiquinol) 200 mg Capsule 200 mg PO DAILY cod liver oil Capsule 1 cap PO DAILY Tumeric 1,000 mg PO DAILY omeprazole 40 mg capsule,delayed release(DR/EC) 40 mg PO DAILY Qty: 30 0RF sucralfate 100 mg/mL Suspension 1 g PO QIDACHS 30 Days Qty: 420 0RF Rx Instructions: enough for 30 days donepezil 10 mg tablet 10 mg PO DAILY albuterol sulfate [Ventolin HFA] 90 mcg/actuation HFA aerosol inhaler 2 puff inhalation Q4-6H PRN (Reason: bronchospasm) 90 Days Qty: 3 4RF fluticasone propionate 44 mcg/actuation HFA aerosol inhaler 2 puff inhalation BID 90 Days Qty: 3 4RF Referrals: [facility] [place] [facility] [Provider Group] (Follow up with a wound center. ) Kallie Guerrero MD [Primary Care Provider] - Print Language: [place]
[2021-09-15 23:33] VITALS: BP 125/70; PULSE 97; RESP 16; O2SAT 97
== END 2021-09-16 02:25 | disposition home or self-care (01) ==
PROVIDERS: Emergency Provider Student in an Organized Health Care Education/Training Program; PCP Internal Medicine
DX: L03.115 Cellulitis of right lower limb (principal); I89.0 Lymphedema, not elsewhere classified; R60.0 Localized edema; R06.02 Shortness of breath; Z79.899 Other long term (current) drug therapy
CPT/HCPCS: 36415; 80053; 83880; 85025; 93971; 99282; 99284

== ENCOUNTER → 2021-09-18 15:14 | Outpatient (BNVA) | payer MEDICARE, SELFPAY | PROVIDERS: PCP Internal Medicine; Visit Provider Nurse Practitioner Family | DX: I48.91 Unspecified atrial fibrillation (principal); R06.00 Dyspnea, unspecified; I89.0 Lymphedema, not elsewhere classified; K92.2 Gastrointestinal hemorrhage, unspecified | CPT/HCPCS: 99212 ==

== ENCOUNTER → 2021-10-21 11:09 | Outpatient (BNVA) | payer MEDICARE, BC, SELFPAY | PROVIDERS: PCP Internal Medicine; Visit Provider Urology | DX: N32.81 Overactive bladder (principal) | CPT/HCPCS: 52000; 52287; J0585 ==

== ENCOUNTER → 2021-10-24 14:01 | Outpatient (BNVA) | payer MEDICARE, SELFPAY | PROVIDERS: PCP Internal Medicine; Visit Provider Internal Medicine Pulmonary Disease | DX: J45.40 Moderate persistent asthma, uncomplicated (principal); R06.09 Other forms of dyspnea | CPT/HCPCS: 99212 ==

== ENCOUNTER → 2021-11-04 10:56 | Outpatient (BNVA) | payer MEDICARE, SELFPAY | PROVIDERS: PCP Internal Medicine; Visit Provider Urology | DX: N32.81 Overactive bladder (principal) | CPT/HCPCS: 51798 ==

== ENCOUNTER → 2021-11-05 13:23 | Outpatient (BNVA) | payer MEDICARE, SELFPAY | PROVIDERS: PCP Internal Medicine; Referring Provider Internal Medicine; Visit Provider Internal Medicine Cardiovascular Disease | DX: I48.20 Chronic atrial fibrillation, unspecified (principal); R60.9 Edema, unspecified | CPT/HCPCS: 93005; 99212 ==

== ENCOUNTER 2022-03-18 13:06 | Outpatient (REF) | payer MEDICARE, SELFPAY ==
[2022-03-18 16:34] LABS: MANUAL DIFF FLAG NO
[2022-03-18 16:45] LABS: Basophils Percent Auto 0.8 % (0-2); Eosinophils Absolute Auto 0.1 X10*3/uL (0.0-0.4); Eosinophils Percent Auto 2.2 % (0-4); Hematocrit 38.6 % (37.0-47.0); Hemoglobin 11.6 g/dl (12.0-16.0); Imm Gran Abs Auto 0.01 X10*3/uL (0.00-0.03); Imm Gran Pct Auto 0.2 % (0.0-0.4); Lymphocytes Absolute Auto 1.6 X10*3/uL (1.2-4.9); Lymphocytes Percent Auto 31.6 % (20-40); Mean Corpuscular HGB Conc 30.1 g/dl (31.0-35.0); Mean Corpuscular Hemoglobin 26.4 pg (27.0-33.0); Mean Corpuscular Volume 87.7 fL (80.0-98.0); Mean Platelet Volume 11.3 fL (9.4-12.3); Monocytes Absolute Auto 0.7 X10*3/uL (0.1-1.2); Neutrophils Absolute Auto 2.6 x10*3/uL (2.0-8.3); Neutrophils Percent Auto 52.2 % (45-73); Platelet Count 366 X10*3/uL (160-400); Red Cell Distribution Width 17.5 % (11.0-16.0)
[2022-03-18 17:05] LABS: Alanine Aminotransferase 10 U/L (0-31); Albumin Level 4.1 g/dL (3.5-5.0); Alkaline Phosphatase 88 U/L (39-117); Anion Gap 14 (12-20); Aspartate Amino Transferase 26 U/L (5-31); Bilirubin Total 0.4 mg/dL (0.0-1.0); Blood Urea Nitrogen 21 mg/dL (9-16); Carbon Dioxide 28 mmol/L (22-29); Chloride 105 mmol/L (96-108); Estimated Glomerular Filt Rate > 60; Glucose Random 72 mg/dL (60-115); Potassium 5.3 mmol/L (3.3-5.1); Sodium 142 mmol/L (135-145); Total Protein 6.4 g/dL (6.5-8.0)
[2022-03-20 03:04] LABS: LDL Cholesterol Direct 166 mg/dL (<100)
== END 2022-03-18 13:07 | disposition home or self-care (01) ==
LOC: HO.HMGCLDS 13:06
PROVIDERS: PCP Internal Medicine; Visit Provider Internal Medicine
DX: E66.9 Obesity, unspecified (principal); E78.9 Disorder of lipoprotein metabolism, unspecified; F09 Unspecified mental disorder due to known physiological condition; F41.8 Other specified anxiety disorders; I89.0 Lymphedema, not elsewhere classified; K21.9 Gastro-esophageal reflux disease without esophagitis; N32.81 Overactive bladder; Z91.09 Other allergy status, other than to drugs and biological substances
CPT/HCPCS: 36415; 80053; 83721; 85025

== ENCOUNTER → 2022-05-21 13:51 | Outpatient (BNVA) | payer MEDICARE, SELFPAY | PROVIDERS: PCP Internal Medicine; Referring Provider Internal Medicine; Visit Provider Internal Medicine Cardiovascular Disease | DX: I48.91 Unspecified atrial fibrillation (principal); R06.09 Other forms of dyspnea | CPT/HCPCS: 93005; 99212 ==

== ENCOUNTER → 2022-06-05 10:59 | Outpatient (REF) | payer MEDICARE, SELFPAY ==
--- NOTE | 2022-06-05 11:01 | CA_ITS ---
Transthoracic Echocardiogram Patient (Last, First, Middle): Madelyn Neal B Gender: Female Date of : 1940 Age: 81 Procedure Date: 06/05/2022 Procedure Type: Transthoracic Echocardiogram Location: OP Height: 170.18 cm Weight: 87.09 kg BSA: 1.99 m2 Heart Rate: bpm BP: 118 / 64 mmHg Electric Stop Installer: TO Referring MD: Eran Butler MD Gospel Worker: Eran Butler MD Symptoms: R06.09 - Other forms of dyspnea Study Quality: Fair ECG Rhythm: Atrial Fibrillation Conclusions: - 1. Normal LV systolic function with LVEF of 60 65% 2. Trivial aortic regurgitation 3. Normal RV systolic pressure 4. No gross pericardial effusion Findings Left Ventricle Normal left ventricular size, thickness, and systolic function. The visually estimated ejection fraction is between 60-65%. Diastolic function is indeterminate on the basis of available data. Right Ventricle Normal right ventricular cavity size and systolic function. Atria The left atrium is likely dilated. The right atrium is normal in size. Aortic Valve The aortic valve structure and function is likely normal. There is no aortic valve stenosis. There is trace (trivial) aortic valve regurgitation. Mitral Valve There is mild anterior and posterior mitral leaflet thickening. There is trace mitral valve regurgitation. There is no mitral valve stenosis. Pulmonic Valve The pulmonic valve is likely normal. There is trace pulmonic valve regurgitation. Tricuspid Valve Normal tricuspid valve structure. There is trace tricuspid valve regurgitation. The right ventricular systolic pressure is normal. The right ventricular systolic pressure is 24 mmHg. Normal right atrial pressure. There is no evidence of pulmonary hypertension. Great Vessels All visible segments of the aorta are normal in size. The pulmonary artery was not well visualized. Venous The inferior vena cava is normal in size and collapses greater than 50% with inspiration. Pericardium/Pleural There is no evidence of pericardial effusion. Prior Study Comparison No significant change compared to prior study dated: 10/22/2020. Measurements 2D Linear Measurements IVSd: 0.95 0.6-0.9/0.6-1.0 cm LVIDd: 4.16 3.9-5.3/4.2-5.9 cm LVIDd Index: 2.09 2.4-3.2/2.2-3.1 cm/m2 LVIDs: 2.94 2.0-3.6 cm LVPWd: 0.76 0.7-1.1 cm LA Diam: 3.30 2.7-3.8/3.0-4.0 cm LAIDs Index: 1.66 1.5-2.3 cm/m2 LV Mass: 135.16 67-162/88-224 g LV Mass Index: 67.92 43-95/49-115 g/m2 LVOT Diam: 2.00 3.0+(-)1.3 cm 2D Systolic Function EF 4C: 59.30 >55% EF 2C: 63.40 >55% EF BiP: 61.80 >55% Mitral Valve MV Pk E: 1.12 MV Decel Time: 191.00 E'Lateral: 12.10 E'Medial: 10.40 E/E' Med: 10.80 E/E' Lat: 9.30 PHT: 56.00 MVA PHT: 3.93 Decel [place]: 5.85 Aortic Valve AoV Pk Carlton: 1.13 AoV Mn Carlton: 0.83 AoV VTI: 0.23 AoV Pk Grad: 5.00 Aov Mn Grad: 3.00 ANDREW Cont.VTI: 2.52 LVOT LVOT Pk Carl[place]: 0.90 LVOT Mn [place]: 0.65 LVOT VTI: 0.19 LVOT Pk Grad: 3.00 LVOT Mn Grad: 2.00 LVOT Diam: 2.00 LVOT Area: 3.14 Diastolic Function MV Pk E: 1.12 E'Medial: 10.40 E/E' Med: 10.80 E' Laterial: 12.10 E/E' Lat: 9.30 Right Ventricle TAPSE (mm): 19.60 TVS' Carlton: 9.78 Tricuspid Valve TR Pk Carlton: 2.27 TR Pk Grad: 21.00 RA Press: 3.00 RVSP: 24.00 Great Vessels Aorta Sinus of Valsalva: 3.31 2.0-3.5 cm Ao Asc: 3.40 2.1-3.4 cm Updated in Other Vendor System with Status of Final Ajay Hernandez MD electronically signed on 06/05/2022 3:32:36 PM with status of Final
== END ==
LOC: HO.CARD 10:59
PROVIDERS: PCP Internal Medicine; Visit Provider Internal Medicine Cardiovascular Disease
DX: R06.09 Other forms of dyspnea (principal); N95.8 Other specified menopausal and perimenopausal disorders
CPT/HCPCS: 51798; 93306; 99212

== ENCOUNTER → 2022-07-23 13:09 | Outpatient (BNVA) | payer MEDICARE, SELFPAY | PROVIDERS: PCP Internal Medicine; Visit Provider Urology | DX: N32.81 Overactive bladder (principal); N95.8 Other specified menopausal and perimenopausal disorders | CPT/HCPCS: 51701; 52000; 52287; J0585 ==

== ENCOUNTER 2022-08-21 14:14 | Outpatient (REF) | payer MEDICARE, SELFPAY ==
[2022-08-21 17:28] LABS: Anion Gap 12 (12-20); Blood Urea Nitrogen 14 mg/dL (9-16); Calcium 10.4 mg/dL (8.4-10.2); Carbon Dioxide 29 mmol/L (22-29); Chloride 104 mmol/L (96-108); Estimated Glomerular Filt Rate > 60; Glucose Random 103 mg/dL (60-115); Potassium 4.4 mmol/L (3.3-5.1); Sodium 141 mmol/L (135-145)
[2022-08-21 17:57] LABS: Vitamin B12 1075 pg/mL (200-900)
[2022-08-23 16:13] LABS: LDL Cholesterol Direct 177 mg/dL (<100)
== END 2022-08-21 14:15 | disposition home or self-care (01) ==
LOC: HO.HMGCLDS 14:14
PROVIDERS: PCP Internal Medicine; Visit Provider Internal Medicine
DX: E78.9 Disorder of lipoprotein metabolism, unspecified (principal); E87.5 Hyperkalemia; F09 Unspecified mental disorder due to known physiological condition; F41.8 Other specified anxiety disorders; I89.0 Lymphedema, not elsewhere classified; K21.9 Gastro-esophageal reflux disease without esophagitis; E53.8 Deficiency of other specified B group vitamins; Z91.09 Other allergy status, other than to drugs and biological substances
CPT/HCPCS: 36415; 80048; 82607; 83721

== ENCOUNTER → 2022-08-26 14:27 | Outpatient (BNVA) | payer MEDICARE, SELFPAY | PROVIDERS: PCP Internal Medicine; Visit Provider Nurse Practitioner Family | DX: J45.40 Moderate persistent asthma, uncomplicated (principal); R06.09 Other forms of dyspnea | CPT/HCPCS: 99212 ==

== ENCOUNTER 2022-09-14 12:11 | Outpatient (REF) | payer MEDICARE, SELFPAY ==
[2022-09-14 13:43] LABS: Cholesterol 228 mg/dL; HDL Cholesterol 65 mg/dL; LDL Cholesterol Calculated 151 mg/dl; Triglycerides 62 mg/dL
== END 2022-09-14 12:12 | disposition home or self-care (01) ==
LOC: HO.LAB 12:11
PROVIDERS: PCP Internal Medicine; Visit Provider Internal Medicine Cardiovascular Disease
DX: E78.9 Disorder of lipoprotein metabolism, unspecified (principal)
CPT/HCPCS: 36415; 80061

== ENCOUNTER 2022-09-17 13:26 | Outpatient (AMB) | payer MEDICARE, SELFPAY ==
[2022-09-17 13:29] VITALS: BP 120/70; PULSE 86
--- NOTE | 2022-09-17 13:29 | A.OFFVIS_ITS ---
Intake Vital Signs 09/17/22 13:29 Height 5 ft 7 in Weight 191 lb 12.835 oz BMI 30.0 BP 120/70 Blood Pressure Location Lt brachial Position Sitting Pulse 86 Intake Visit Reasons: 4 month follow up Intake Note: 4 month f/u Dot Compliance Coordinator Required: No Allergies doxycycline Allergy (Mild, Verified 09/17/22 13:39) Rash lorazepam Allergy (Unknown, Verified 09/17/22 13:39) unknown pantoprazole Allergy (Unknown, Verified 09/17/22 13:39) NAUSEA amoxicillin [AMOXICILLIN] Adverse Reaction (Intermediate, Verified 09/17/22 13:39) NAUSEA/VOMITING Medication List - Last Reconciled 09/17/22 by KIRSTEN Castañeda albuterol sulfate 90 mcg/actuation 2 puffs PO Q4-6H PRN citalopram 20 mg PO DAILY 90 days digoxin 125 mcg PO .mwf donepezil 10 mg PO DAILY estradiol (Yuvafem) 10 mcg vaginal 2XW 28 days fluticasone propion-salmeterol 115-21 mcg/actuation (Advair HFA) 2 puffs inhalation Q12H fluticasone propionate 50 mcg/actuation 1 spray intranasal DAILY 30 days fluticasone propionate 44 mcg/actuation 2 puffs inhalation BID 90 days metoprolol succinate ER 50 mg PO DAILY omeprazole 40 mg PO DAILY prednisone 40 mg (2 x 20 mg) PO DAILY rivaroxaban (Xarelto) 20 mg PO DAILY 90 days rosuvastatin 20 mg PO DAILY triamcinolone acetonide 0.1% 1 appl topical BID-TID HPI 4 month follow up HPI Details Madelyn is an 81-year-old female with past medical history of hyperlipidemia, mild obesity, moderate persistent asthma, chronic atrial fibrillation who presents for follow-up. Today she reports that she has had issues with her asthma and recent months. She has some shortness of breath with activity which is not new. She has no chest discomfort at rest or with activity. No heart palpitations, dizziness, presyncope, syncope, PND. She has bilateral lower leg swelling from lymphedema. She remains active throughout the day and takes her medications as directed. She has some confusion about her med doses and brought them with her to discuss. No bleeding issues reported. [facility] Medical History Acute GI bleeding Chronic a-fib Moderate persistent asthma Surgical History Status post surgical removal of malignant neoplasm of skin Family History Father No problems noted. Mother Cerebral brain hemorrhage Social History Household Members: None Housing: House Do you presently have visiting nurse or other home services: No Alcohol intake: current Alcohol intake frequency: a few times a month Patient Tobacco Use Status: Never used Tobacco e-Cigarette/Vaping Use: Never Used Second Hand Smoke Exposure: Yes Advance Directives Date on File: 09/15/21 service: No Current occupational status: retired Cognitive needs: No Hearing needs: No Vision needs: Yes Review of Systems Const All systems reviewed & are unremarkable except as noted in HPI and below ENT Reports dizziness Card Denies chest pain, Denies chest pain at rest, Denies chest pain with activity, Denies rapid heart rate, Denies pedal edema, Denies edema, Denies leg edema, Denies lightheadedness, Denies palpitations, Denies dyspnea, Denies dyspnea on exertion and Denies orthopnea Resp Denies cough, Denies dyspnea and Denies dyspnea on exertion GI Denies hematochezia and Denies change in stool character Musc Denies abnormal gait, Reports limited range of motion, Reports muscle cramps, Denies muscle weakness, Denies numbness, Denies radiating pain into limb, Denies stiffness and Denies tingling Neuro Denies abnormal gait, Reports dizziness, Denies numbness and Denies tingling Endo Denies palpitations Physical Exam Vital Signs: Last Vital Signs Pulse 86 09/17/22 13:29 BP 120/70 09/17/22 13:29 BMI result Body Mass Index 30.0 Const General: cooperative, healthy appearing, comfortable and no acute distress Orientation/consciousness: patient oriented x3 Neck Neck: Yes normal visual inspection Resp Effort & Inspection: normal respiratory effort Auscultation: clear to auscultation bilaterally, no crackles, no rales, no rhonchi and no wheezes Cardio Jugular venous distension: no JVD Rate: regular rate Rhythm: abnormal rhythm Heart sounds: S1 normal heart sound present, S2 normal heart sound present, no g allops, no murmurs and no rubs GI Inspection: Yes normal to inspection Neuro General: patient oriented x3 Extrem General: Yes normal to inspection, No no pedal edema and No calf tenderness Psych Appearance: grossly normal Mental Status: mental status grossly normal Speech and movement: Normal speech and movement present Office Procedures EKG Details: Today, read by me, atrial fibrillation, nonspecific T-wave abnormality, low voltage QRS, rate 86, QTC 457 millisecond [id number], Complete Assessment & Plan Assessment & Plan (1) Atrial fibrillation: Code(s): I48.91 - Unspecified atrial fibrillation Plan: History of chronic atrial fibrillation. No reports of heart palpitations. Treated for heart rate control using metoprolol XL and digoxin 3 times weekly. Echocardiogram done 06/05/2022 showing EF 60-65%, trivial aortic regurgitation, no change from 09/2020. She is on Xarelto for anticoagulation. No bleeding issues reported. She does have prior history of GI bleeding however no recent issues. Continue current meds without change. She had confusion over metoprolol dose however confirmed to be metoprolol XL 100 mg daily. No recent digoxin level in our system. She tells me most labs are ordered by her PCP. Plan for dig level with next lab draw. Labs from 08/21/2022 shows creatinine 0.71. Labs 03/18/2022 shows hematocrit 38.6. Cardiology follow-up 6 months, sooner if needed (2) Hyperlipidemia: Code(s): E78.5 - Hyperlipidemia, unspecified Plan: Phelps LDL goal less than 100 recent labs done show LDL 151. She had been on gemfibrizol and Crestor 20 mg daily was ordered. She has not begun taking this medication as she has some med confusion. Reviewed each med with her and rationale. She will stop gemfibrozil all and start Crestor now. Plan for fasting lipid profile, LFT in 2-3 months. (3) Dyspnea on exertion: Code(s): R06.09 - Other forms of dyspnea Plan: History of shortness of breath with activity. Nuclear stress test done 10/02/2020 for symptom of shortness of breath shows no definitive evidence of infarct or ischemia, normal EF. She does have chronic atrial fibrillation which may be partly contributing to her shortness of breath with activity however rate is controlled. She does have moderate persistent asthma which is most likely the cause. She does follow with pulmonology. No clinical signs of heart failure on examination. Orders: Orders Comprehensive Met. Panel 2 Months E78.5 - Hyperlipidemia, unspecified Lipid Panel 2 Months E78.5 - Hyperlipidemia, unspecified Digoxin 2 Months I48.91 - Unspecified atrial fibrillation Coding Level of Care Code Est Pt Level 4 (90246) Diagnoses Atrial fibrillation I48.91 Hyperlipidemia E78.5 Dyspnea on exertion R06.09 CPT Codes EKG - CPT: 45820-[id number], Complete ([id number]) Time Spent (min) 26 Comment Chart review, documentation, interview, assess
== END 2022-09-17 13:58 | disposition home or self-care (01) ==
PROVIDERS: PCP Internal Medicine; Visit Provider Nurse Practitioner Family
DX: I48.91 Unspecified atrial fibrillation (principal); E78.5 Hyperlipidemia, unspecified; R06.09 Other forms of dyspnea
CPT/HCPCS: 93010; 99214

== ENCOUNTER → 2022-09-17 13:26 | Outpatient (BNVA) | payer MEDICARE, SELFPAY | PROVIDERS: PCP Internal Medicine; Visit Provider Nurse Practitioner Family | DX: I48.91 Unspecified atrial fibrillation (principal); E78.5 Hyperlipidemia, unspecified; R06.09 Other forms of dyspnea | CPT/HCPCS: 93005; 99212 ==

== ENCOUNTER 2022-10-02 08:14 | Outpatient (AMB) | payer MEDICARE, SELFPAY ==
--- NOTE | 2022-10-02 08:16 | MHC.PC.OV ---
Vital Signs 10/02/22 08:20 Height 5 ft 7 in Weight 201 lb BMI 31.5 BP 110/80 Blood Pressure Location Rt brachial Position Sitting Pulse 76 Pulse Source Pulse Oximeter Pulse Oximetry (%) 100 Oxygen Delivery Method Room Air Intake Visit Reasons: Neck pain/headaches Allergies doxycycline Allergy (Mild, Verified 10/02/22 08:18) Rash lorazepam Allergy (Unknown, Verified 10/02/22 08:18) unknown pantoprazole Allergy (Unknown, Verified 10/02/22 08:18) NAUSEA amoxicillin [AMOXICILLIN] Adverse Reaction (Intermediate, Verified 10/02/22 08:18) NAUSEA/VOMITING Medication List - Last Reconciled 10/02/22 by Kallie Guerrero MD albuterol sulfate 90 mcg/actuation 2 puffs PO Q4-6H PRN citalopram 20 mg PO DAILY 90 days digoxin 125 mcg PO .mwf 90 days donepezil 10 mg PO DAILY estradiol (Yuvafem) 10 mcg vaginal 2XW 28 days fluticasone propion-salmeterol 115-21 mcg/actuation (Advair HFA) 2 puffs inhalation Q12H fluticasone propionate 50 mcg/actuation 1 spray intranasal DAILY 30 days fluticasone propionate 44 mcg/actuation 2 puffs inhalation BID 90 days metoprolol succinate ER 50 mg PO DAILY omeprazole 40 mg PO DAILY rivaroxaban (Xarelto) 20 mg PO DAILY 90 days rosuvastatin 20 mg PO DAILY triamcinolone acetonide 0.1% 1 appl topical BID-TID Tobacco use date assessed: 10/02/22 Fall risk assessment: 2 + Falls in past year Last assessed Fall Risk: 10/02/22 Dental Screening Dental Screen Date: 10/02/22 Did you have a dental visit in the last 12 months?: Yes Did you have a dental problem in the last 6 months where you did not have access to dental care?: No Was dental information given to patient?: Patient has dentist HPI Neck pain/headaches HPI Details Patient came in today with a chief complaint of pain in her neck on left side. Patient says that it becomes aggravated when she is looking down on her phone. Pain started gradually and got worse over days. There is no weakness in her hand no numbness in her fingers Explained to patient that it is because of looking down for prolonged periods of time I would recommend for her to stop looking down on her phone so much Meanwhile I have ordered physical therapy for her I do not have any cervical spine x-ray in chart, we will do that I have sent muscle relaxer 5 mg to be taken at night only as needed Patient was notified the medication will make her drowsy and there is a risk of fall with that. [facility] Medical History Acute GI bleeding Chronic a-fib Moderate persistent asthma Surgical History Status post surgical removal of malignant neoplasm of skin Family History Father No problems noted. Mother Cerebral brain hemorrhage Social History Household Members: None Housing: House Do you presently have visiting nurse or other home services: No Alcohol intake: current Alcohol intake frequency: a few times a month Patient Tobacco Use Status: Never used Tobacco e-Cigarette/Vaping Use: Never Used Second Hand Smoke Exposure: Yes Advance Directives Date on File: 09/15/21 service: No Current occupational status: retired Cognitive needs: No Hearing needs: No Vision needs: Yes Questionnaire Thrive Questionnaire Date Thrive assessed: 03/14/21 LORIE-7 AMB Questionnaire LORIE-7 Date LORIE - 7 assessed: 03/14/21 Source: Developed by Drs. Aries Romero, Kecia Pedraza, Eliezer Hu and colleagues, with an educational tiana from [employer]. Review of Systems Const Denies chills and Denies fever(s) ENT Denies epistaxis and Denies nasal discharge Card Denies chest pain Resp Denies chest congestion, Denies cough and Denies hemoptysis GI Denies diarrhea and Denies nausea Skin/Breast Denies rash Neuro Reports no additional complaints Psych Reports no additional complaints Endo Reports no additional complaints Physical exam (Primary Care) Vital Signs: Last Vital Signs Pulse 76 10/02/22 08:20 BP 110/80 10/02/22 08:20 Pulse Ox 100 10/02/22 08:20 Oxygen Delivery Method Room Air 10/02/22 08:20 BMI result Body Mass Index 31.5 Tobacco/Smoking Status: Tobacco use Status Tobacco use date assessed 10/02/22 10/02/22 08:22 Patient Tobacco Use Status Never used Tobacco 10/02/22 08:18 e-Cigarette/Vaping Use Never Used 10/02/22 08:18 Thrive Assessment: Date of Thrive Assessment Date Thrive assessed 03/14/21 10/02/22 08:18 Const General: cooperative, comfortable and no acute distress Orientation/consciousness: patient oriented x3 HENMT Head: Yes normocephalic Eyes General: appearance normal, both eyes and all related structures Neck Other: Her neck is supple however having discomfort left side over cervical head of trapezius muscle with flexion and rotation Resp Effort & Inspection: normal respiratory effort, no cough and no stridor Skin General skin exam: turgor normal Neuro General: patient oriented x3, tone normal and moves all extremities Extrem Right lower extremity: no edema Left lower extremity: no edema Assessment and Plan Assessment & Plan (1) Cervicalgia: Code(s): M54.2 - Cervicalgia Plan Patient came in today with a chief complaint of pain in her neck on left side. Patient says that it becomes aggravated when she is looking down on her phone. Pain started gradually and got worse over days. There is no weakness in her hand no numbness in her fingers Explained to patient that it is because of looking down for prolonged periods of time I would recommend for her to stop looking down on her phone so much Meanwhile I have ordered physical therapy for her I do not have any cervical spine x-ray in chart, we will do that I have sent muscle relaxer 5 mg to be taken at night only as needed Patient was notified the medication will make her drowsy and there is a risk of fall with that. Orders: Orders XR cervical spine 2V Today M54.2 - Cervicalgia PT Evaluation and Treatment Today M54.2 - Cervicalgia Medications: New cyclobenzaprine Take 1 as needed at night for neck pain 5 mg PO BEDTIME 7 tabs 0RF Neck pain 7 days M54.9 - Dorsalgia, unspecified Coding Level of Care Code Est Pt Level 3 (90286) Diagnoses Cervicalgia M54.2
[2022-10-02 08:20] VITALS: BP 110/80; PULSE 76; O2SAT 100; BMI 31.5
== END 2022-10-02 09:04 | disposition home or self-care (01) ==
PROVIDERS: PCP Internal Medicine; Visit Provider Internal Medicine
DX: M54.2 Cervicalgia (principal)
CPT/HCPCS: 99213

== ENCOUNTER 2022-10-02 08:35 | Outpatient (REF) | payer MEDICARE, SELFPAY ==
--- NOTE | ~2022-10-02 | XR_ITS ---
EXAMINATION: XR CERVICAL SPINE CLINICAL INFORMATION: Cervicalgia. COMPARISON: Radiographs dated 03/05/2009. TECHNIQUE: Frontal, lateral and odontoid views are obtained. FINDINGS: There is bony demineralization. There is moderately severe narrowing of the C3-C4 disc space. There is moderate narrowing of the C4-C5 disc space. Marked narrowing is seen of the C5-C6 and C6-C7 disc spaces. No acute fracture or spondylolisthesis is seen. There is multi-level cervical spondylosis and facet arthropathy. The posterior elements are intact. The dens is intact. There is arthritic change of the atlantoaxial joint. No prevertebral soft tissue swelling is seen. There are right carotid atherosclerotic calcifications. XR/XR cervical spine 2V IMPRESSION: 1. There is multi-level cervical degenerative disc disease, spondylosis and facet arthropathy. Degenerative disc disease particularly severe C3-C4, C5-C6 and C6. 2. There are right carotid atherosclerotic calcifications, which could be more fully evaluated with dedicated carotid ultrasound, if clinically indicated.
== END 2022-10-02 08:36 | disposition home or self-care (01) ==
LOC: HO.HMGCX 08:35
PROVIDERS: PCP Internal Medicine; Visit Provider Internal Medicine
DX: M54.2 Cervicalgia (principal)
CPT/HCPCS: 72040

== ENCOUNTER 2022-10-19 14:16 | Outpatient (REF) | payer MEDICARE, SELFPAY ==
--- NOTE | ~2022-10-19 | US_ITS ---
EXAMINATION: US EXTRACRANIAL CAROTID DUPLEX, BILATERAL CLINICAL INFORMATION: Carotid calcifications seen on x-ray. COMPARISON: Cervical spine x-ray 10/02/2022. TECHNIQUE: Real-time ultrasound and Doppler techniques (integrating B-mode 2-D vascular images, Doppler spectral analysis and color-flow Doppler imaging) were utilized to interrogate the extracranial carotid arteries, the vertebral arteries and proximal subclavian arteries bilaterally. The degree of stenosis is determined by criteria similar to NASCET. FINDINGS: Right Side: 1. There is mild atherosclerotic plaque seen in the bifurcation/proximal ICA region. 2. The common carotid artery PSV proximally is 60 cm/s and distally 87 cm/s. 3. The proximal internal carotid artery velocities are 83 cm/s systolic and 29 cm/s diastolic. 4. The proximal external carotid artery PSV is 52 cm/s. 5. The vertebral artery shows antegrade flow. 6. The subclavian artery waveforms are normal. Left Side: 1. There is mild atherosclerotic plaque seen in the bifurcation/proximal ICA region. 2. The common carotid artery PSV proximally is 79 cm/s and distally 86 cm/s. 3. The proximal internal carotid artery velocities are 74 cm/s systolic and 28 cm/s diastolic. 4. The proximal external carotid artery PSV is 50 cm/s. 5. The vertebral artery shows antegrade flow. 6. The subclavian artery waveforms are normal. US/US carotid duplex BI IMPRESSION: 1. RIGHT: Minimal, non-hemodynamically significant stenosis of the proximal right internal carotid artery corresponding to a 0-49% stenosis by velocity criteria. 2. LEFT: Minimal, non-hemodynamically significant stenosis of the proximal left internal carotid artery corresponding to a 0-49% stenosis by velocity criteria.
== END 2022-10-19 14:17 | disposition home or self-care (01) ==
LOC: HO.HMGCX 14:16
PROVIDERS: PCP Internal Medicine; Visit Provider Nurse Practitioner Family
DX: I65.21 Occlusion and stenosis of right carotid artery (principal); E78.5 Hyperlipidemia, unspecified
CPT/HCPCS: 93880

== ENCOUNTER 2022-11-02 13:00 | Outpatient (RCR) | payer MEDICARE, SELFPAY ==
--- NOTE | 2022-10-14 12:07 | MHC.PT.EP ---
[facility] [place] Office [place] Office [place] Office [address] [phone] F: [phone] F: [phone] F: [phone] F: [phone] Physical Therapy Plan of Care Date of Evaluation: Date of Surgery: n/a Diagnosis: cervicalgia Assessment: Patient is a 81 year old female presenting to PT with complaints of pain in her neck. Pt reports onset of pain began about 4 months ago due to prolonged time looking down at her phone. She presents today with impairments in pain, neck ROM, +ttp UT area, posture. Pt's current occupation is retired, with baseline physical activities including ADLs, driving. Pt expresses usp goal of reducing pain, and is motivated to work towards this in PT. Clinical presentation today is most consistent with signs and sx associated with neck pain and pt will benefit from skilled PT 2 week x 4 weeks to address the following problems and impairments noted upon evaluation: pain, neck ROM, +ttp UT area, posture. These problems limit the patient with the following functional activities: ADLs, driving. The prescribed treatment plan of care is medically necessary. Co-morbidities of afib, lymphedema were identified and taken into considerations of plan of care. Pt was educated on HEP, role of PT, prognosis, POC. Frequency and Duration: The patient will be seen 2 x week x 4 weeks Short Term Goals: Pt will demonstrate pain at rest < 2/10 in 2 weeks. Pt will demonstrate ability to move through available neck ROM with min to no pain. Pt will be compliant with avoiding looking down at her phone for prolonged periods of time in 2 visits. Correction Goals: Pt will demonstrate improved NDI score by 10% in 4 weeks for improved functional mobility. Pt will demonstrate min to no pain with ADLs in 4 weeks for return to PLOF. Treatment Plan: Modalities to reduce pain, spasms and effusion. Manual therapy to restore motion and function. Therapeutic exercise to improve strength and flexibility. Neuromuscular re-education for posture and balance. Therapeutic activities to return to functional activities of daily living. Electronically signed by: Mirian Parikh, PT, DPT, ATC Please sign and return to therapist. Thank you for your referral.
--- NOTE | 2022-12-02 08:41 | MHC.PT.DC ---
[facility] [place] Office [place] Office [place] Office [address] Evgeny Montero [address] [phone] F: [phone] F: [phone] F: [phone] F: [phone] Physical Therapy Discharge Report Diagnosis: cervicalgia Date of Surgery: n/a Date of Evaluation: 10/14/22 Date of Discharge: 12/02/22 Treatments to Date: 4 Cancellations to Date: 3 No Shows to Date: 2 Discharge Status: Visit Non-compliance Discharge Summary: Pt has not returned to skilled PT in >30 days. Pt to be d/c at this time. Electronically signed by: Mirian Parikh, PT, DPT, ATC Please sign and return to therapist. Thank you for your referral.
== END 2022-12-02 08:41 | disposition home or self-care (01) ==
LOC: HO.PTCHIC 13:00
PROVIDERS: PCP Internal Medicine; Visit Provider Internal Medicine
DX: M54.2 Cervicalgia (principal)
CPT/HCPCS: 97110; 97140; 97161

== ENCOUNTER 2022-11-11 12:13 | Outpatient (REF) | payer MEDICARE, SELFPAY ==
[2022-11-11 13:53] LABS: Erythrocyte Sedimentation Rate 23 MM/HR (0-20)
[2022-11-11 13:58] LABS: Anion Gap 11 (12-20); Blood Urea Nitrogen 10 mg/dL (9-16); C Reactive Protein 4.13 mg/dL (< or = 0.50); Calcium 9.9 mg/dL (8.4-10.2); Carbon Dioxide 27 mmol/L (22-29); Chloride 109 mmol/L (96-108); Estimated Glomerular Filt Rate > 60; Glucose Random 99 mg/dL (60-115); Potassium 5.1 mmol/L (3.3-5.1); Sodium 142 mmol/L (135-145)
[2022-11-11 14:01] LABS: Digoxin < 0.2 ng/mL (0.8-2.0)
[2022-11-11 14:06] LABS: Alanine Aminotransferase 19 U/L (0-31); Albumin Level 3.9 g/dL (3.5-5.0); Alkaline Phosphatase 79 U/L (39-117); Anion Gap 10 (12-20); Aspartate Amino Transferase 34 U/L (5-31); Bilirubin Total 0.5 mg/dL (0.0-1.0); Blood Urea Nitrogen 10 mg/dL (9-16); Calcium 9.7 mg/dL (8.4-10.2); Carbon Dioxide 27 mmol/L (22-29); Chloride 109 mmol/L (96-108); Cholesterol 155 mg/dL (<200); Estimated Glomerular Filt Rate > 60; Glucose Random 99 mg/dL (60-115); HDL Cholesterol 71 mg/dL (>40); LDL Cholesterol Calculated 73 mg/dL (<100); Potassium 4.8 mmol/L (3.3-5.1); Sodium 141 mmol/L (135-145); Total Protein 6.5 g/dL (6.5-8.0); Triglycerides 58 mg/dL (<150)
== END 2022-11-11 12:14 | disposition home or self-care (01) ==
LOC: HO.LAB 12:13
PROVIDERS: Nurse Practitioner Family; PCP Internal Medicine; Visit Provider Psychiatry & Neurology Neurology
DX: G93.40 Encephalopathy, unspecified (principal); I48.91 Unspecified atrial fibrillation; E78.5 Hyperlipidemia, unspecified; Z79.899 Other long term (current) drug therapy
CPT/HCPCS: 36415; 80048; 80053; 80061; 80162; 85652; 86140

== ENCOUNTER 2022-11-27 10:05 | Outpatient (AMB) | payer MEDICARE, SELFPAY ==
--- NOTE | 2022-11-27 10:09 | A.OFFVIS_ITS ---
Intake Intake Visit Reasons: 4M Follow Up(OAB/UTI) Intake Note: Patient is Present for Telephone Follow Up For Urology Med:estradiol Antibiotic Allergy: doxycycline Blood Thinner:no Pharamcy:[facility] Allergies doxycycline Allergy (Mild, Verified 11/27/22 10:11) Rash lorazepam Allergy (Unknown, Verified 11/27/22 10:11) unknown pantoprazole Allergy (Unknown, Verified 11/27/22 10:11) NAUSEA amoxicillin [AMOXICILLIN] Adverse Reaction (Intermediate, Verified 11/27/22 10:11) NAUSEA/VOMITING Medication List - Last Reconciled 11/27/22 by Barber Yadav MD albuterol sulfate 90 mcg/actuation 2 puffs PO Q4-6H PRN ciprofloxacin HCl 250 mg PO BID 5 days citalopram 20 mg PO DAILY 90 days cyclobenzaprine 5 mg PO BEDTIME 7 days digoxin 125 mcg PO .mwf 90 days donepezil 10 mg PO DAILY estradiol (Yuvafem) 10 mcg vaginal 2XW 28 days fluticasone propion-salmeterol 115-21 mcg/actuation (Advair HFA) 2 puffs inhalation Q12H fluticasone propionate 50 mcg/actuation 1 spray intranasal DAILY 30 days fluticasone propionate 44 mcg/actuation 2 puffs inhalation BID 90 days metoprolol succinate ER 50 mg PO DAILY omeprazole 40 mg PO DAILY rivaroxaban (Xarelto) 20 mg PO DAILY 90 days rosuvastatin 20 mg PO DAILY triamcinolone acetonide 0.1% 1 appl topical BID-TID HPI HPI Comments History of Present Illness Details Ms Kecia Townsend is a very pleasant female. She is a patient of Dr Guerrero. She is seen for the following urologic conditions - overactive bladder Telemedicine Evaluation 15 min Consultation Arctrieval Frederic Video attempted Four month since office Botox Urgency returning Like to move ahead with repeat procedure Incontinence: Botox performed 09/2021 They present for evaluation of OAB - stress incontinence did well with Kegel's - overactive bladder. - oxybutynin used previously. It is effective however she has memory issues. Detrol LA not successful Myrbetriq not covered previously by insurance and not successful Toviaz trial performed not as successful as oxybutynin Good response to botox 12/10, 05/11, 11/11, 04/14, 02/11, 06/13, 10/13, 08/13, 08/14 Symptoms have been present for 2019 They state the symptoms are currently worsening. - bathroom planning Relevant medical conditions include Alzheimer's disease No brain tumor No CVA No cystocele No Plan for Botox in office [facility] Medical History Chronic a-fib Acute GI bleeding Moderate persistent asthma Surgical History Status post surgical removal of malignant neoplasm of skin Family History Father No problems noted. Mother Cerebral brain hemorrhage Social History Household Members: None Housing: House Do you presently have visiting nurse or other home services: No Alcohol intake: current Alcohol intake frequency: a few times a month Patient Tobacco Use Status: Never used Tobacco e-Cigarette/Vaping Use: Never Used Second Hand Smoke Exposure: Yes Advance Directives Date on File: 09/15/21 service: No Current occupational status: retired Cognitive needs: No Hearing needs: No Vision needs: Yes Review of Systems Const All systems reviewed & are unremarkable except as noted in HPI and below Reports no additional complaints Resp Reports no additional complaints GI Reports no additional complaints Reports as per HPI Musc Reports no additional complaints Physical Exam Telemedicine evaluation Appropriate responses Regular breathing rate and rhythm HEENT Head: Yes normal to inspection Ears: hearing grossly normal bilaterally Eyes General: appearance normal, both eyes and all related structures Neck Neck: Yes normal visual inspection Chest Chest palpation & inspection: normal inspection of the chest Resp Effort & Inspection: normal respiratory effort and able to speak in complete sentences Assessment & Plan Assessment & Plan (1) Genitourinary syndrome of menopause: Code(s): N95.8 - Other specified menopausal and perimenopausal disorders (2) Urinary urgency: Code(s): R39.15 - Urgency of urination (3) Overactive bladder: Comment: Response to Botox intermittent Code(s): N32.81 - Overactive bladder Plan Risks, benefits and alternatives to therapy were discussed. These include but are not limited to infection, bleeding, damage to local organs and tissues, need for further interventions. Anesthetic risks regarding cardiac arrhythmia, blood clots, and potential mortality were discussed. The patient understands the typical recovery time and the outpatient nature of the procedure. After consideration of these risks the patient gives full informed consent and they wish to move ahead with the procedure. Medications: New ciprofloxacin HCl take 2 days before procedure and 2 days after 250 mg PO BID 10 tabs 0RF 5 days N32.81 - Overactive bladder, N39.0 - Urinary tract infection, site not specified Patient Instructions: Imaging studies, laboratory and physical exam results were discussed and reviewed in detail. No major barriers to patient understanding were identified. An opportunity to ask questions regarding the treatment plan was provided. All questions were answered. The patient expressed understanding and agreement with the above treatment plan. The patient is aware they should contact our office by phone for worsening of their current condition or the appearance of new urologic symptoms. Compliance is encouraged with any medications and followup testing that is ordered. It is a privilege to participate in the urologic care of your patient. If you have any questions or concerns regarding treatment for the above conditions, or other urologic issues, please do not hesitate to contact me. The office telephone contact is [phone]. This note is constructed using voice recognition software. While every effort has been made to ensure accuracy cassandra architect errors may have been included. Yours sincerely, Dr Barber Yadav MD, [facility] - Urology Providers of Expert, Compassionate Care for the Genitourinary System Telehealth Telehealth Location of provider rendering services: practice address Location of patient: address on file Patient Identification confirmed using: Name, : Yes Telehealth method: voice only Patient verbally consented to treatment: Yes Patient verbally consented to billing insurance company: Yes Patient informed of any privacy concerns related to visit: Yes Coding Level of Care Code Tele Est Pt Level 4 (26552) Diagnoses Genitourinary syndrome of menopause N95.8 Urinary urgency R39.15 Overactive bladder N32.81
== END 2022-11-27 11:08 | disposition home or self-care (01) ==
LOC: HO.HUSH 10:06
PROVIDERS: PCP Internal Medicine; Visit Provider Urology
DX: N95.8 Other specified menopausal and perimenopausal disorders (principal); R39.15 Urgency of urination; N32.81 Overactive bladder
CPT/HCPCS: 99213

== ENCOUNTER → 2022-11-27 10:05 | Outpatient (BNVA) | payer MEDICARE, SELFPAY | PROVIDERS: PCP Internal Medicine; Visit Provider Urology ==

== ENCOUNTER 2022-12-15 12:01 | Outpatient (AMB) | payer MEDICARE, SELFPAY ==
[2022-12-15 12:02] VITALS: BP 128/82; PULSE 99; O2SAT 97; BMI 31.8
--- NOTE | 2022-12-15 12:02 | MHC.OFFVIS ---
Intake Vital Signs 12/15/22 12:02 Height 5 ft 7 in Weight 202 lb 13.204 oz BMI 31.8 BP 128/82 Blood Pressure Location Rt brachial Position Sitting Pulse 99 Pulse Source Doppler Pulse Oximetry (%) 97 Oxygen Delivery Method Room Air Intake Visit Reasons: Shortness of breath Allergies doxycycline Allergy (Mild, Verified 12/15/22 12:06) Rash lorazepam Allergy (Unknown, Verified 12/15/22 12:06) unknown pantoprazole Allergy (Unknown, Verified 12/15/22 12:06) NAUSEA amoxicillin [AMOXICILLIN] Adverse Reaction (Intermediate, Verified 12/15/22 12:06) NAUSEA/VOMITING HPI Shortness of breath HPI Details 82-year-old lady, lifetime nonsmoker, with underlying AFib, followed for underlying moderate persistent asthma. She continues to use Flovent 44 and intermittently requires to use albuterol MDI. She denies any recent asthma exacerbations.? she has completed her cardiopulmonary exercise test that showed normal pulmonary reserve and normal cardiac response common limited by deconditioning. [facility] Medical History Chronic a-fib Acute GI bleeding Moderate persistent asthma Surgical History Status post surgical removal of malignant neoplasm of skin Family History Father No problems noted. Mother Cerebral brain hemorrhage Social History Household Members: None Housing: House Do you presently have visiting nurse or other home services: No Alcohol intake: current Alcohol intake frequency: a few times a month Patient Tobacco Use Status: Never used Tobacco e-Cigarette/Vaping Use: Never Used Second Hand Smoke Exposure: Yes Advance Directives Date on File: 09/15/21 service: No Current occupational status: retired Cognitive needs: No Hearing needs: No Vision needs: Yes Review of Systems Const Denies daytime sleepiness, Denies excessive sweating, Denies fatigue, Denies fever(s), Denies lethargy, Denies malaise, Denies night sweats, Denies snoring and Denies weight loss Eyes Denies blurry vision and Denies itchy eyes ENT Denies nasal congestion, Denies post nasal drip, Denies sinus pain, Denies sinus pressure and Denies other ( Thrush) Card Denies chest pain, Denies pedal edema, Denies dyspnea, Denies orthopnea and Denies paroxysmal nocturnal dyspnea Resp Denies cough, Denies hemoptysis, Denies excessive phlegm production, Denies dyspnea, Denies snoring and Denies wheezing GI Denies abdominal pain and Denies heartburn Musc Denies myalgias, Denies arthralgias and Denies joint swelling Skin/Breast Denies rash Neuro Denies memory loss and Denies seizure-like activity Psych Denies abnormal sleep pattern, Denies anxiety and Denies memory loss Endo Denies excessive sweating, Denies fatigue and Denies heat intolerance Deonte/Lymph Denies easy bruising Aller/Immun Denies itchy eyes, Denies seasonal rhinorrhea and Denies wheezing Physical Exam Vital Signs: Last Vital Signs Pulse 99 12/15/22 12:02 BP 128/82 12/15/22 12:02 Pulse Ox 97 12/15/22 12:02 Oxygen Delivery Method Room Air 12/15/22 12:02 BMI result Body Mass Index 31.8 Const General: no acute distress and alert Nutritional Appearance: not obese Orientation/consciousness: Other orientation findings ( oriented) HEENT Head: Yes atraumatic Eyes General: appearance normal, both eyes and all related structures Sclerae: sclerae normal EOM: EOMs intact bilaterally Neck Neck: Yes supple Lymphatic: no lymphadenopathy noted Resp Effort & Inspection: normal respiratory effort and no use of accessory muscles Auscultation: clear to auscultation bilaterally Cardio Rate: regular rate Rhythm: regular rhythm Heart sounds: no gallops, no murmurs and no rubs Skin General skin exam: other ( warm) Extrem General: No clubbing, No cyanosis and No edema Assessment & Plan Assessment & Plan (1) Moderate persistent asthma: Code(s): J45.40 - Moderate persistent asthma, uncomplicated Plan: Well controlled on Flovent 44 and albuterol MDI. Continue current regimen. (2) BULL (dyspnea on exertion): Code(s): R06.00 - Dyspnea, unspecified Plan: Results of cardiopulmonary exercise test reviewed with the patient - normal pulmonary reserve, normal cardiac response. Appears to be mostly limited by deconditioning/weight. Coding Level of Care Code Est Pt Level 4 (62742) Diagnoses Moderate persistent asthma J45.40 BULL (dyspnea on exertion) R06.00
== END 2022-12-15 12:19 | disposition home or self-care (01) ==
PROVIDERS: PCP Internal Medicine; Visit Provider Internal Medicine Pulmonary Disease
DX: J45.40 Moderate persistent asthma, uncomplicated (principal); R06.00 Dyspnea, unspecified
CPT/HCPCS: 99214

== ENCOUNTER → 2022-12-15 12:01 | Outpatient (BNVA) | payer MEDICARE, SELFPAY | PROVIDERS: PCP Internal Medicine; Visit Provider Internal Medicine Pulmonary Disease | DX: J45.40 Moderate persistent asthma, uncomplicated (principal); R06.00 Dyspnea, unspecified | CPT/HCPCS: 99212 ==

== ENCOUNTER 2022-12-22 10:36 | Outpatient (AMB) | payer MEDICARE, SELFPAY ==
[2022-12-22 10:36] VITALS: BP 146/88; PULSE 94; O2SAT 96; BMI 32.1
--- NOTE | 2022-12-22 10:36 | MHC.PC.OV ---
Vital Signs 12/22/22 10:36 Height 5 ft 7 in Weight 205 lb BMI 32.1 BP 146/88 H Blood Pressure Location Lt brachial Position Sitting Pulse 94 Pulse Source Pulse Oximeter Pulse Oximetry (%) 96 Oxygen Delivery Method Room Air Intake Visit Reasons: Skin irritation R breast Allergies doxycycline Allergy (Mild, Verified 12/22/22 10:39) Rash lorazepam Allergy (Unknown, Verified 12/22/22 10:39) unknown pantoprazole Allergy (Unknown, Verified 12/22/22 10:39) NAUSEA amoxicillin [AMOXICILLIN] Adverse Reaction (Intermediate, Verified 12/22/22 10:39) NAUSEA/VOMITING Medication List - Last Reconciled 12/22/22 by Kallie Guerrero MD albuterol sulfate 90 mcg/actuation 2 puffs PO Q4-6H PRN ciprofloxacin HCl 250 mg PO BID 5 days citalopram 20 mg PO DAILY 90 days cyclobenzaprine 5 mg PO BEDTIME 7 days digoxin 125 mcg PO .mwf 90 days donepezil 10 mg PO DAILY estradiol (Yuvafem) 10 mcg vaginal 2XW 28 days fluticasone propion-salmeterol 115-21 mcg/actuation (Advair HFA) 2 puffs inhalation Q12H fluticasone propionate 50 mcg/actuation 1 spray intranasal DAILY 30 days fluticasone propionate 44 mcg/actuation 2 puffs inhalation BID 90 days metoprolol succinate ER 50 mg PO DAILY omeprazole 40 mg PO DAILY rivaroxaban (Xarelto) 20 mg PO DAILY 90 days rosuvastatin 20 mg PO DAILY triamcinolone acetonide 0.1% 1 appl topical BID-TID Tobacco use date assessed: 12/22/22 Fall risk assessment: 1 Fall in past year Last assessed Fall Risk: 12/22/22 Dental Screening Dental Screen Date: 12/22/22 Did you have a dental visit in the last 12 months?: Yes Did you have a dental problem in the last 6 months where you did not have access to dental care?: No Was dental information given to patient?: Patient has dentist HPI Skin irritation R breast HPI Details Patient is 82-year-old female came in today to be evaluated for rash she has developed a right breast Patient says that she was at her dermatology office for her regular follow-up a week ago and she showed a rash to Dermatology as well and was told that she does not know what that is. On examination she has maculopapular lesions right breast 4 or 5 of them at different stages of healing. Patient says that they are non pruritic and she is not feeling any pain at this time There is no such lesions on the left breast At this time I would continue to observe, patient was instructed to let me know if this started to spread or become painful She is also requesting a handicap placard because of lymphedema which I have provided to her. [facility] Medical History Chronic a-fib Acute GI bleeding Moderate persistent asthma Surgical History Status post surgical removal of malignant neoplasm of skin Family History Father No problems noted. Mother Cerebral brain hemorrhage Social History Household Members: None Housing: House Do you presently have visiting nurse or other home services: No Alcohol intake: current Alcohol intake frequency: a few times a month Patient Tobacco Use Status: Never used Tobacco e-Cigarette/Vaping Use: Never Used Second Hand Smoke Exposure: Yes Advance Directives Date on File: 09/15/21 service: No Current occupational status: retired Cognitive needs: No Hearing needs: No Vision needs: Yes Questionnaire Thrive Questionnaire Date Thrive assessed: 03/14/21 LORIE-7 AMB Questionnaire LORIE-7 Date LORIE - 7 assessed: 03/14/21 Source: Developed by Drs. Aries Romero, Kecia Pedraza, Eliezer Hu and colleagues, with an educational tiana from [employer]. Review of Systems Const Denies chills and Denies fever(s) ENT Denies epistaxis and Denies nasal discharge Card Denies chest pain Resp Denies chest congestion, Denies cough and Denies hemoptysis GI Denies diarrhea and Denies nausea Skin/Breast Denies rash Neuro Reports no additional complaints Psych Reports no additional complaints Endo Reports no additional complaints Physical exam (Primary Care) Vital Signs: Last Vital Signs Pulse 94 12/22/22 10:36 BP 146/88 H 12/22/22 10:36 Pulse Ox 96 12/22/22 10:36 Oxygen Delivery Method Room Air 12/22/22 10:36 BMI result Body Mass Index 32.1 Tobacco/Smoking Status: Tobacco use Status Tobacco use date assessed 12/22/22 12/22/22 10:41 Patient Tobacco Use Status Never used Tobacco 12/22/22 10:41 e-Cigarette/Vaping Use Never Used 12/22/22 10:41 Thrive Assessment: Date of Thrive Assessment Date Thrive assessed 03/14/21 12/22/22 10:41 Const General: cooperative, comfortable and no acute distress Orientation/consciousness: patient oriented x3 HENMT Head: Yes normocephalic Eyes General: appearance normal, both eyes and all related structures Neck Neck: Yes supple Chest Chest/axillae images: 1. 3 or 4 maculopapular lesions without any signs of infection or fluctuation Resp Effort & Inspection: normal respiratory effort, no cough and no stridor Skin General skin exam: turgor normal Neuro General: patient oriented x3, tone normal and moves all extremities Extrem Right lower extremity: no edema Left lower extremity: no edema Assessment and Plan Assessment & Plan (1) Rash: Code(s): R21 - Rash and other nonspecific skin eruption (2) Lymphedema: Code(s): I89.0 - Lymphedema, not elsewhere classified Plan Patient is 82-year-old female came in today to be evaluated for rash she has developed a right breast Patient says that she was at her dermatology office for her regular follow-up a week ago and she showed a rash to Dermatology as well and was told that she does not know what that is. On examination she has maculopapular lesions right breast 4 or 5 of them at different stages of healing. Patient says that they are non pruritic and she is not feeling any pain at this time There is no such lesions on the left breast At this time I would continue to observe, patient was instructed to let me know if this started to spread or become painful She is also requesting a handicap placard because of lymphedema which I have provided to her. Coding Level of Care Code Est Pt Level 3 (64533) Diagnoses Rash R21 Lymphedema I89.0
--- OUTSIDE RECORDS SUMMARY | 2022-12-22 10:38 | XMS_ITS | Continuity of Care Document ---
Author Name Unknown Organization [facility] ter Address [address] [place] [id number]- Care Team Providers Care Flagman Name Role Phone Cesar ENGLISH, Asma Primary Care Physician [phone] [facility]counter [facility] [id number] Date(s): 10/17/22 - 12/10/[address] [id number] Attending Physician: Mc Bergeron MD Admitting Physician: Mc Bergeron MD Referring Physician: Mc Bergeron MD Allergies, Adverse Reactions, Alerts No Known Medication Allergies Medications Aspirin = 325 mg, By Mouth, Daily, 0 Refills, Maintenance, 02/28/14 14:33:33 Start Date: 02/28/14 Status: Ordered CCL2 AK compression stocking left leg CCL2 AK compression stocking left leg, See Instructions, # 2 units, Refills 0, Tot. Refills 0, Maintenance, dx: lymphedema, 07/06/14 9:11:35, Compound Start Date: 07/06/14 Status: Ordered Celebrex 200 mg oral capsule 1 capsule = 200 mg, By Mouth, 2 times a day, 0 Refills, Maintenance, 02/28/14 14:26:45 Start Date: 02/28/14 Status: Ordered Cholestyramine = 4 Gm, By Mouth, 2 times a day, 0 Refills, Maintenance, 02/28/14 14:31:05 Start Date: 02/28/14 Status: Ordered Cod Liver Oil 1 capsule, By Mouth, Daily, 0 Refills, Maintenance, 02/28/14 14:33:21 Start Date: 02/28/14 Status: Ordered donepezil 10 mg oral tablet 10 mg, 1, tablet, By Mouth, Daily at bedtime, # 30 tablet, Refills 0, Maintenance, 08/01/20 9:41:00EDT, Partial fill upon patient request if the prescription is for a schedule II opioid drug. Start Date: 08/01/20 Status: Ordered Flovent HFA 44 mcg/inh inhalation aerosol 2 puffs, Inhalation, 2 times a day, 0 Refills, Maintenance, 02/28/14 14:31:32 Start Date: 02/28/14 Status: Ordered Fluticasone Nasal See Instructions, 50mcg Daily in each nostril, 0 Refills, Maintenance, 02/28/14 14:31:50 Start Date: 02/28/14 Status: Ordered gemfibrozil 600 mg oral tablet 600 mg, 1, tablet, By Mouth, 2 times a day, Refills 0, Maintenance, 08/01/20 9:41:00 EDT, Partial fill upon patient request if the prescription is for a schedule II opioid drug. Start Date: 08/01/20 Status: Ordered Glucosamine By Mouth, 0 Refills, Maintenance, 02/28/14 14:33:07 Start Date: 02/28/14 Status: Ordered Lac-Hydrin 12% lotion 1 application, Topically, 2 times a day, apply to R leg and B feet. May apply to L leg once wound is healed., # 225 Gm, 1 Refills, Maintenance, 08/01/20 10:24:00 EDT, Lotion, [facility]/pharmacy #[id number], Partial fill upon patient request if the prescription... Start Date: 08/01/20 Stop Date: 08/29/20 Status: Ordered Lymphedema therapy manual massage and wrapping Lymphedema therapy manual massage and wrapping, See Instructions, # 1 application, Refills 3, Tot. Refills 3, Maintenance, bilat lymph compression therapy Diagnosis= bilateral lower elg lymphedema with skin changes, 11/21/15 15:33:28, Compound Start Date: 11/21/15 Status: Ordered metoprolol 50 mg oral tablet, extended release 50 mg, 1, tablet, By Mouth, Daily, # 30 tablet, Refills 0, Maintenance, 08/01/20 9:42:00 EDT, Partial fill upon patient request if the prescription is for a schedule II opioid drug. Start Date: 08/01/20 Status: Ordered Omeprazole = 20 mg, By Mouth, Daily, 0 Refills, Maintenance, 02/28/14 14:26:58 Start Date: 02/28/14 Status: Ordered Pneumatic compression pump Pneumatic compression pump, See Instructions, # 1 each, Refills 1, Tot. Refills 1, Maintenance, Left leg foot- upper thigh Bid 1 hr 75 mmhg Diagnoiss= Lymphedema with skin changes/ ulceration/cellulitis, 06/29/14 11:50:14, Compound Start Date: 06/29/14 Status: Ordered Xarelto 20 mg oral tablet 1 tablet = 20 mg, By Mouth, Daily at supper, # 30 tablet, 0 Refills, Maintenance, 08/01/20 9:42:00 EDT, Tablet, Partial fill upon patient request if the prescription is for a schedule II opioid drug. Start Date: 08/01/20 Status: Ordered Problem List Condition Confirmation Course Effective Dates Status Health St atus Informant Obese class I Confirmed Active Social History Social History Type Response Smoking Status Never smoker entered on: 02/28/14 Sex Patient Care team information Care Team Personnel Name: Cesar ENGLISH, Kallie Position: S Physician - Primary Care Member Role: PCP Address: Address: [address] [place] [address]- Care Team Related Persons Name: WILLIS BREEN Address: home [address] [place] [id number] Name: PT STATES, NOONE
== END 2022-12-22 15:45 | disposition home or self-care (01) ==
LOC: HO.HMGC 10:36
PROVIDERS: PCP Internal Medicine; Visit Provider Internal Medicine
DX: R21 Rash and other nonspecific skin eruption (principal); I89.0 Lymphedema, not elsewhere classified
CPT/HCPCS: 99213

== ENCOUNTER → 2022-12-31 15:45 | Outpatient (BNV) | payer MEDICARE, SELFPAY | PROVIDERS: PCP Internal Medicine; Visit Provider Radiology Diagnostic Radiology | DX: Z12.31 Encounter for screening mammogram for malignant neoplasm of breast (principal) | CPT/HCPCS: 77063; 77067 ==

== ENCOUNTER 2022-12-31 15:56 | Outpatient (REF) | payer MEDICARE, SELFPAY ==
--- NOTE | ~2022-12-31 | MM_ITS ---
EXAMINATION: MM SCREENING DIGITAL BREAST TOMOSYNTHESIS, BILATERAL CLINICAL INFORMATION: Screening. Asymptomatic. COMPARISON: Mammography: 04/29/2021, 04/18/2018, 04/05/2017, 02/07/2016 TECHNIQUE: Digital breast tomosynthesis is performed in both the craniocaudal and mediolateral oblique views along with computer-aided detection (CAD). Synthesized 2D images are generated from the tomosynthesis. FINDINGS: There are scattered areas of fibroglandular density (ACR BI-RADS breast composition Category b). Again, there are scattered bilateral benign round, and secretory calcifications in both breasts. These are benign. There are no suspicious masses, suspicious grouped calcifications, or areas of architectural distortion in either breast. The parenchymal pattern is stable from prior exams. MM/MM tomosynthesis screening BI IMPRESSION: No mammographic evidence of malignancy. Stable benign findings. ASSESSMENT: BI-RADS BI-RADS 2 - Benign Findings RECOMMENDATION: Routine annual mammography screening. 1 year F/U This examination should not preclude the clinical evaluation of a suspicious palpable abnormality. This patient's information was entered into a reminder system with a target due date for their next mammogram.
== END 2022-12-31 15:57 | disposition home or self-care (01) ==
LOC: HO.MAMMO 15:56
PROVIDERS: PCP Internal Medicine; Visit Provider Internal Medicine
DX: Z12.31 Encounter for screening mammogram for malignant neoplasm of breast (principal)
CPT/HCPCS: 77063; 77067

== ENCOUNTER 2023-01-04 11:08 | Outpatient (REF) | payer MEDICARE, SELFPAY ==
--- NOTE | ~2023-01-04 | MR_ITS ---
EXAMINATION: MR BRAIN WITHOUT AND WITH CONTRAST CLINICAL INFORMATION: Cognitive changes, headache back of neck to head along the left frontoparietal region. COMPARISON: MRI brain on 08/10/2014. TECHNIQUE: Multiplanar, multisequence MRI of the brain was obtained before and after the intravenous administration of 10 mL Gadavist. FINDINGS: No acute intracranial hemorrhage or infarct. Mild confluent periventricular white matter T2/FLAIR hyperintensities, nonspecific however commonly seen with small vessel ischemic disease. No abnormal intraparenchymal enhancement. No midline shift or hydrocephalus. No acute extra-axial fluid collections. The osseous structures are unremarkable. The pituitary gland, pineal gland and remaining midline structures are unremarkable. No orbital pathology. Mild mucosal thickening of the paranasal sinuses. The mastoid air cells are clear. MR/MR head/brain wo/w con IMPRESSION: No acute intracranial abnormalities. Mild chronic microangiopathy.
[2023-01-04] MEDS: gadobutroL 10 ML VIAL IVPUSH (12:36)
== END 2023-01-04 11:09 | disposition home or self-care (01) ==
LOC: HO.MRI 11:08
PROVIDERS: PCP Internal Medicine; Visit Provider Psychiatry & Neurology Neurology
DX: G93.40 Encephalopathy, unspecified (principal)
CPT/HCPCS: 70553; A9585

== ENCOUNTER 2023-02-11 15:10 | Outpatient (AMB) | payer MEDICARE, SELFPAY ==
--- NOTE | 2023-02-11 15:20 | MHC.OFFVIS ---
Intake Intake Visit Reasons: cysto/botox Intake Note: Patient is present for cystoscopy/botox Urology Medications: none Blood Thinner: xarelto Antibiotic allergies: none Uro-N Cystoscope Injection Cannula Lot: [id number] Ex: 03/23/23 Technical Services Consultant Required: No Accompanied by: Self / Same As Patient Allergies doxycycline Allergy (Mild, Verified 02/11/23 16:48) Rash lorazepam Allergy (Unknown, Verified 02/11/23 16:48) unknown pantoprazole Allergy (Unknown, Verified 02/11/23 16:48) NAUSEA amoxicillin [AMOXICILLIN] Adverse Reaction (Intermediate, Verified 02/11/23 16:48) NAUSEA/VOMITING Medication List - Last Reconciled 02/11/23 by YOVANI Newman-RK albuterol sulfate 90 mcg/actuation 2 puffs PO Q4-6H PRN citalopram 20 mg PO DAILY 90 days cyclobenzaprine 5 mg PO BEDTIME 7 days digoxin 125 mcg PO .mwf 90 days donepezil 10 mg PO DAILY estradiol (Yuvafem) 10 mcg vaginal 2XW 28 days fluticasone propion-salmeterol 115-21 mcg/actuation (Advair HFA) 2 puffs inhalation Q12H fluticasone propionate 50 mcg/actuation 1 spray intranasal DAILY 30 days fluticasone propionate 44 mcg/actuation 2 puffs inhalation BID 90 days metoprolol succinate ER 50 mg PO DAILY omeprazole 40 mg PO DAILY rivaroxaban (Xarelto) 20 mg PO DAILY rosuvastatin 20 mg PO DAILY sulfamethoxazole-trimethoprim 800-160 mg (Bactrim DS) 1 tab PO BID 5 days sulfamethoxazole-trimethoprim 800-160 mg (Bactrim DS) 1 tab PO BID 2 days triamcinolone acetonide 0.1% 1 appl topical BID-TID HPI HPI Comments History of Present Illness Details Madelyn is a very pleasant 82-year-old female patient of Dr. Guerrero. She has a past medical history of chronic AFib, asthma, and lymphedema. She presents to the office today for follow-up of her overactive bladder. Discussion with the patient today she reports longstanding history of urinary incontinence with multiple failed oral medications such as Detrol, Myrbetriq, and Toviaz. She discusses having had improvement in lower urinary tract symptoms when receiving bladder Botox. In office cystoscopy with bladder botox completed today. She otherwise currently denies any bothersome urinary issues or concerns. She discusses her lymphedema and her lifestyle modifications to help with it. She discusses noting increase urinary frequency when she attempts to elvate her legs for her lyphadema. Discussed importance of doing so. She otherwise currently denies hematuria, dysuria, foul smelling urine, changes to urinary stream, flank pain, fever, and or chills. Incontinence: Botox performed 02/11/23 They present for evaluation of OAB - stress incontinence did well with Kegel's - overactive bladder. - oxybutynin used previously. It is effective however she has memory issues. Detrol LA not successful Myrbetriq not covered previously by insurance and not successful Toviaz trial performed not as successful as oxybutynin Good response to botox 12/10, 05/11, 11/11, 04/14, 02/11, 06/13, 10/13, 08/13, 08/14 Symptoms have been present for 2018 They state the symptoms are currently worsening. - bathroom planning Relevant medical conditions include Alzheimer's disease No brain tumor No CVA No cystocele No PFSH Medical History Chronic a-fib Acute GI bleeding Moderate persistent asthma Surgical History Status post surgical removal of malignant neoplasm of skin Family History Father No problems noted. Mother Cerebral brain hemorrhage Social History Household Members: None Housing: House Do you presently have visiting nurse or other home services: No Alcohol intake: current Alcohol intake frequency: a few times a month Patient Tobacco Use Status: Never used Tobacco e-Cigarette/Vaping Use: Never Used Second Hand Smoke Exposure: Yes Advance Directives Date on File: 09/15/21 service: No Current occupational status: retired Cognitive needs: No Hearing needs: No Vision needs: Yes Review of Systems Eyes Reports no additional complaints ENT Reports no additional complaints Card Reports as per HPI Resp Reports no additional complaints GI Reports no additional complaints Reports as per HPI Musc Reports as per HPI Neuro Reports no additional complaints Psych Reports no additional complaints Endo Reports no additional complaints Deonte/Lymph Reports as per HPI Physical Exam Const General: cooperative, healthy appearing, comfortable, no acute distress, well developed, alert and awake Nutritional Appearance: overweight Orientation/consciousness: patient oriented x3 Limitations: no limitations HEENT Head: Yes normal to inspection, Yes normocephalic and Yes atraumatic Ears: hearing grossly normal bilaterally Eyes General: appearance normal, both eyes and all related structures Neck Neck: Yes normal visual inspection and Yes trachea midline Chest Chest palpation & inspection: normal inspection of the chest Resp Effort & Inspection: normal respiratory effort and able to speak in complete sentences Cardio Rate: regular rate GI Inspection: Yes normal to inspection General: Yes no CVA tenderness Back/Spine/Pelvis Back: no CVA tenderness Skin General skin exam: no rashes or lesions noted Neuro General: patient oriented x3 Extrem General: Yes normal to inspection Psych Appearance: grossly normal and well kempt Mental Status: mental status grossly normal Speech and movement: Normal speech and movement present and Clear speech present Affect: normal affect Attitude: cooperative Thought process: Normal thought process present Thought content: Normal thought content present Insight: Fair insight present (Psych) Judgement: Fair judgement present (Psych) Office Procedures Cystoscopy Consent Discussed risk and benefit or proposed procedure with the patient. Information consent for procedure given to the patient. Discussed technical aspects, risks, benefits and alternatives in full. Addressed all of the patient's questions and concerns regarding the procedure. The patient demonstrated knowledge and understanding. They wish to proceed with this procedure. Preparation The patient was prepped in the usual manner. A juice bar team member was present and in the room. Genitalia was prepped with betadine solution in a sterile manner. Lidocaine Jelly 2% was placed into the urethra and 16Fr flexible Olympus cystoscope was inserted into the meatus after adequate lubrication. Procedure 12 fr straight cath used to drain bladder and instill botox cocktail: 20 mls bupivicaine 5 mls lidocaine 2% 2 lidocaine urojets Cystoscopy performed with 16 Norwegian cystoscope. Bladder had been prepped with lidocaine and lidocaine jelly placement 15 minutes prior to procedure. Antibiotics were administrated for 2 days prior to procedure. UA has been performed and shows no evidence of infection. Bladder was emptied of urine. Bladder was refilled. Using 200 units of Botox mixed in 10 cc of normal saline injections were placed at the back wall of the bladder. 0.5cc placed at each injection site. Injections were placed in a grid 5 across and 4 high. Injections were placed from the inferior to superior position. Trabeculations on the bladder wall were targeted if present. Procedure was tolerated well. [id number] of non-indwelling bladder catheter (12 fr straight cath used to empty bladder and instill 20 mls lido urojet, 5 mls lidocaine 2% and 20 mls bupivicaine .50%) [id number] 95837 - Botox Injection, urethra or bladder DISPOSABLE SCOPE URO-N NEEDLE SCOPE Procedure code (CPT) selection complete Office Meds lidocaine HCl 2 % mucosal jelly in applicator Performing Provider: LÓPEZ Newman Performing Location: [facility] Administered by: Kassandra Casey RN on 02/11/23 15:22 Dose Route Admin Location Dispensed Lot Number Expiration Date [facility] Licensed Insurance Agent 10 mL intra-urethral 20 mL Comments: used in botox cocktail naproxen 500 mg tablet Performing Provider: LÓPEZ Newman Performing Location: [facility] Administered by: Kassandra Casey RN on 02/11/23 15:22 Dose Route Admin Location Dispensed Lot Number Expiration Date [facility] Licensed Insurance Agent 500 mg PO 1 tab Results AMB Urinalysis, Automated UA Leukoctes 70 Yuki/uL Last Edit by Russell Dunlap on 02/11/23 15:51 UA Nitrite Negative Last Edit by Russell Dunlap on 02/11/23 15:51 UA Urobilinogen 0.2 mg/dL Last Edit by Russell Dunlap on 02/11/23 15:51 UA Protein 15 mg/dL Last Edit by Russell Dunlap on 02/11/23 15:51 UA pH 6.0 Last Edit by Russell Dunlap on 02/11/23 15:51 UA Blood 0 Eric/uL Last Edit by Russell Dunlap on 02/11/23 15:51 UA Specific [place] 1.030 Last Edit by Russell Dunlap on 02/11/23 15:51 UA Ketone Negative Last Edit by Russell Dunlap on 02/11/23 15:51 UA Bilirubin 0 mg/dL Last Edit by Russell Dunlap on 02/11/23 15:51 UA Glucose 0 mg/dL Last Edit by Russell Dunlap on 02/11/23 15:51 Results Reviewed Results Reviewed: Laboratory Last Values Urine pH (Auto) 6.0 02/11/23 15:49 Specific [place] (Auto) 1.030 02/11/23 15:49 Urine Protein (Auto) 15 mg/dL 02/11/23 15:49 Glucose (UA)(Auto) 0 mg/dL 02/11/23 15:49 Urine Ketones (Auto) Negative 02/11/23 15:49 Urine Blood (Auto) 0 Eric/uL 02/11/23 15:49 Urine Nitrite (Auto) Negative 02/11/23 15:49 Urine Bilirubin (Auto) 0 mg/dL 02/11/23 15:49 Urine Urobilinogen (Auto) 0.2 mg/dL 02/11/23 15:49 Leukocyte Esterase (Auto) 70 Yuki/uL 02/11/23 15:49 Assessment & Plan Assessment & Plan (1) Genitourinary syndrome of menopause: Code(s): N95.8 - Other specified menopausal and perimenopausal disorders (2) Urinary urgency: Code(s): R39.15 - Urgency of urination (3) Overactive bladder: Comment: Response to Botox intermittent Code(s): N32.81 - Overactive bladder Plan In office urinalysis results reviewed with the patient today; as noted above. Cystoscopy with 200 units of Botox performed; as noted above. Complete antibiotic therapy post procedure as discussed. Discussed bladder triggers/ irritants Discussed timed/scheduled tainting. Follow-up in 2 weeks with nursing for PVR Orders: Orders AMB Cystoscopy Today N32.81 - Overactive bladder AMB Urinalysis Automated Today Z13.9 - Encounter for screening, unspecified Medications: New sulfamethoxazole-trimethoprim 800-160 mg (Bactrim DS) to take for two days following botox procedure 1 tab PO BID 2 days 4 tabs 0RF Patient Instructions: The patient had an opportunity to ask questions regarding the treatment plan. All questions were answered. Physical exam, labs, and imaging were discussed and reviewed in detail. As well as risks, benefits, and discussion of treatment choices. No major barriers to understanding were identified. The patient expressed understanding and agreement with the above treatment plan. The patient was made aware they should contact our office by phone for worsening of their current condition, the appearance of new symptoms, or with any questions or concerns. Compliance is encouraged with any medications and follow up testing that is ordered. It is a privilege to be allowed the opportunity to participate in? your urological care.? Again, if you have any questions or concerns If you have any questions or concerns please do not hesitate to contact me. The office is [phone]. This note is constructed using voice recognition software. While every effort has been made to ensure accuracy director supplier quality errors may have been included. Yours sincerely, LÓPEZ Newman Coding Level of Care Code Est Pt Level 3 (08120) Diagnoses Genitourinary syndrome of menopause N95.8 Urinary urgency R39.15 Overactive bladder N32.81 CPT Codes Cystoscopy - CPT: 70508-Unrzbzegf of non-indwelling bladder catheter ([id number]) Cystoscopy - CPT: 67285-Rsparotyyq ([id number]) Cystoscopy - CPT: 74232 - Botox Injection, urethra or bladder ([id number])
== END 2023-02-11 16:23 | disposition home or self-care (01) ==
PROVIDERS: PCP Internal Medicine; Visit Provider Nurse Practitioner Family
DX: N95.8 Other specified menopausal and perimenopausal disorders (principal); R39.15 Urgency of urination; N32.81 Overactive bladder; Z13.9 Encounter for screening, unspecified
CPT/HCPCS: 52287; 99213

== ENCOUNTER → 2023-02-11 15:10 | Outpatient (BNVA) | payer MEDICARE, SELFPAY | PROVIDERS: PCP Internal Medicine; Visit Provider Nurse Practitioner Family | DX: N95.8 Other specified menopausal and perimenopausal disorders (principal); N32.81 Overactive bladder; R39.15 Urgency of urination | CPT/HCPCS: 52287; 81003; 99212; J0585 ==

== ENCOUNTER 2023-03-24 14:18 | Outpatient (AMB) | payer MEDICARE, SELFPAY ==
[2023-03-24 14:23] VITALS: BP 130/60; PULSE 89; BMI 31.8
--- NOTE | 2023-03-24 14:23 | A.OFFVIS_ITS ---
Intake Vital Signs 03/24/23 14:23 Height 5 ft 7 in Weight 202 lb 13.204 oz BMI 31.8 BP 130/60 Blood Pressure Location Lt brachial Position Sitting Pulse 89 Intake Visit Reasons: 6 mth f/up Intake Note: pt its here for a 6 mnth f/up pt its feeling fine. Property Loss Insurance Claim Adjuster Required: No Accompanied by: Self / Same As Patient Allergies doxycycline Allergy (Mild, Verified 03/24/23 14:39) Rash lorazepam Allergy (Unknown, Verified 03/24/23 14:39) unknown pantoprazole Allergy (Unknown, Verified 03/24/23 14:39) NAUSEA amoxicillin [AMOXICILLIN] Adverse Reaction (Intermediate, Verified 03/24/23 14:39) NAUSEA/VOMITING Medication List - Last Reconciled 03/24/23 by Shannon Rich NP albuterol sulfate 90 mcg/actuation 2 puffs PO Q4-6H PRN citalopram 20 mg PO DAILY 90 days digoxin 125 mcg PO .mwf 90 days donepezil 10 mg PO DAILY estradiol (Yuvafem) 10 mcg vaginal 2XW 28 days fluticasone propion-salmeterol 115-21 mcg/actuation (Advair HFA) 2 puffs inhalation Q12H fluticasone propionate 50 mcg/actuation 1 spray intranasal DAILY 30 days fluticasone propionate 44 mcg/actuation 2 puffs inhalation BID 90 days metoprolol succinate ER 50 mg PO DAILY omeprazole 40 mg PO DAILY rivaroxaban (Xarelto) 20 mg PO DAILY rosuvastatin 20 mg PO DAILY sulfamethoxazole-trimethoprim 800-160 mg (Bactrim DS) 1 tab PO BID 5 days sulfamethoxazole-trimethoprim 800-160 mg (Bactrim DS) 1 tab PO BID 2 days triamcinolone acetonide 0.1% 1 appl topical BID-TID HPI HPI Comments History of Present Illness Details 82-year-old female presents today for a follow-up on her atrial fibrillation. Patient has a medical history of afib, lymphedema, asthma, and hyperlipdemia. She reports her breathing and swelling has been stable with no recent changes. She denies chest pains, palpitations, dizziness, or bleeding. She has been tkaing her meications regularly. Blood pressure today is good. [facility] Medical History Chronic a-fib Acute GI bleeding Moderate persistent asthma Surgical History Status post surgical removal of malignant neoplasm of skin Family History Father No problems noted. Mother Cerebral brain hemorrhage Social History Household Members: None Housing: House Do you presently have visiting nurse or other home services: No Alcohol intake: current Alcohol intake frequency: a few times a month Patient Tobacco Use Status: Never used Tobacco e-Cigarette/Vaping Use: Never Used Second Hand Smoke Exposure: Yes Advance Directives Date on File: 09/15/21 service: No Current occupational status: retired Cognitive needs: No Hearing needs: No Vision needs: Yes Review of Systems Const Denies chills, Denies fatigue, Denies fever(s), Denies frequent falls, Denies weakness, Denies weight gain and Denies weight loss ENT Denies dizziness Card Denies chest pain, Denies leg edema, Denies lightheadedness, Denies palpitations, Denies dyspnea and Denies dyspnea on exertion Resp Denies cough, Denies dyspnea and Denies dyspnea on exertion GI Denies hematochezia Musc Denies abnormal gait, Denies muscle weakness, Denies numbness, Denies radiating pain into limb and Denies tingling Neuro Denies abnormal gait, Denies dizziness, Denies frequent falls, Denies numbness, Denies tingling and Denies weakness Endo Denies fatigue and Denies palpitations Physical Exam Vital Signs: Last Vital Signs Pulse 89 03/24/23 14:23 BP 130/60 03/24/23 14:23 BMI result Body Mass Index 31.8 Const General: healthy appearing and no acute distress Orientation/consciousness: patient oriented x3 HEENT Head: Yes normal to inspection Eyes General: appearance normal, both eyes and all related structures Neck Neck: Yes normal visual inspection Chest Chest palpation & inspection: normal inspection of the chest Resp Effort & Inspection: normal respiratory effort Auscultation: clear to auscultation bilaterally Cardio Jugular venous distension: no JVD Palpation: normal PMI Rate: regular rate Rhythm: regular rhythm Heart sounds: S1 normal heart sound present, S2 normal heart sound present, no click, no gallops, no murmurs and no rubs GI Inspection: Yes normal to inspection Palpation (GI): Soft to palpation Skin General skin exam: no rashes or lesions noted Neuro General: patient oriented x3 Extrem General: Yes normal to inspection Psych Appearance: grossly normal Office Procedures EKG Details: EKG today. Atrial Fibrillation rate [address] bpm. Low voltage QRS. ST & T wave abnormality. No significant changes from last. [id number], Complete Assessment & Plan Assessment & Plan (1) Atrial fibrillation: Code(s): I48.91 - Unspecified atrial fibrillation (2) BULL (dyspnea on exertion): Code(s): R06.00 - Dyspnea, unspecified Plan Echocardigram in May 2022 showed normal LVEF of 60-65%. She reports her breathing has been stable and managed with respitotory medications. No bleeding - continue anticoagulation of Xarelto 20mg QD and rate control medication of Metoprolol succinate 50mg QD and digoxin 3 x per week. Report elevated heart rates. increase in swelling, shortness of breath, or chest pain. ED care for symptoms if needed. 11/11/22 Digoxin level <0.2 L Cr was 0.75 mg/dL. Medications: Changed From metoprolol succinate ER 50 mg PO DAILY To metoprolol succinate ER 50 mg PO DAILY 90 days 90 tabs 1RF Coding Level of Care Code Est Pt Level 3 (24014) Diagnoses Atrial fibrillation I48.91 BULL (dyspnea on exertion) R06.00 CPT Codes EKG - CPT: 03146-Lyvflcjnugbvbjraz, Complete ([id number])
== END 2023-03-24 14:57 | disposition home or self-care (01) ==
PROVIDERS: PCP Internal Medicine; Visit Provider Nurse Practitioner
DX: I48.91 Unspecified atrial fibrillation (principal)
CPT/HCPCS: 93010; 99213

== ENCOUNTER → 2023-03-24 14:18 | Outpatient (BNVA) | payer MEDICARE, SELFPAY | PROVIDERS: PCP Internal Medicine; Visit Provider Nurse Practitioner | DX: I48.91 Unspecified atrial fibrillation (principal); R06.00 Dyspnea, unspecified; Z79.01 Long term (current) use of anticoagulants; Z79.899 Other long term (current) drug therapy | CPT/HCPCS: 93005; 99212 ==

== ENCOUNTER 2023-06-04 11:22 | Outpatient (AMB) | payer MEDICARE, SELFPAY ==
[2023-06-04 11:24] VITALS: BP 127/82; PULSE 91; O2SAT 100; BMI 31.3
--- NOTE | 2023-06-04 11:24 | MHC.OFFVIS ---
Intake Vital Signs 06/04/23 11:24 Height 5 ft 7 in Weight 200 lb BMI 31.3 BP 127/82 Blood Pressure Location Lt brachial Position Sitting Pulse 91 Pulse Source Doppler Pulse Oximetry (%) 100 Oxygen Delivery Method Room Air Intake Visit Reasons: Shortness of breath Allergies doxycycline Allergy (Mild, Verified 03/24/23 14:39) Rash lorazepam Allergy (Unknown, Verified 03/24/23 14:39) unknown pantoprazole Allergy (Unknown, Verified 03/24/23 14:39) NAUSEA amoxicillin [AMOXICILLIN] Adverse Reaction (Intermediate, Verified 03/24/23 14:39) NAUSEA/VOMITING HPI Shortness of breath HPI Details 82-year-old lady, lifetime nonsmoker, with underlying AFib, followed for underlying moderate persistent asthma. She was switched from Flovent to Advair 115 with reasonable control of her symptoms. She does complain of intermittent wheezing. Her cardiopulmonary exercise test showed normal cardiac and pulmonary reserve. [facility] Medical History Chronic a-fib Acute GI bleeding Moderate persistent asthma Surgical History Status post surgical removal of malignant neoplasm of skin Family History Father No problems noted. Mother Cerebral brain hemorrhage Social History Household Members: None Housing: House Do you presently have visiting nurse or other home services: No Alcohol intake: current Alcohol intake frequency: a few times a month Patient Tobacco Use Status: Never used Tobacco e-Cigarette/Vaping Use: Never Used Second Hand Smoke Exposure: Yes Advance Directives Date on File: 09/15/21 service: No Current occupational status: retired Cognitive needs: No Hearing needs: No Vision needs: Yes Review of Systems Const Denies daytime sleepiness, Denies excessive sweating, Denies fatigue, Denies fever(s), Denies lethargy, Denies malaise, Denies night sweats, Denies snoring and Denies weight loss Eyes Denies blurry vision and Denies itchy eyes ENT Denies nasal congestion, Denies post nasal drip, Denies sinus pain, Denies sinus pressure and Denies other ( Thrush) Card Denies chest pain, Denies pedal edema, Denies dyspnea, Denies orthopnea and Denies paroxysmal nocturnal dyspnea Resp Denies cough, Denies hemoptysis, Denies excessive phlegm production, Denies dyspnea, Denies snoring and Denies wheezing GI Denies abdominal pain and Denies heartburn Musc Denies myalgias, Denies arthralgias and Denies joint swelling Skin/Breast Denies rash Neuro Denies memory loss and Denies seizure-like activity Psych Denies abnormal sleep pattern, Denies anxiety and Denies memory loss Endo Denies excessive sweating, Denies fatigue and Denies heat intolerance Deonte/Lymph Denies easy bruising Aller/Immun Denies itchy eyes, Denies seasonal rhinorrhea and Denies wheezing Physical Exam Vital Signs: Last Vital Signs Pulse 91 06/04/23 11:24 BP 127/82 06/04/23 11:24 Pulse Ox 100 06/04/23 11:24 Oxygen Delivery Method Room Air 06/04/23 11:24 BMI result Body Mass Index 31.3 Const General: no acute distress and alert Nutritional Appearance: not obese Orientation/consciousness: Other orientation findings ( oriented) HEENT Head: Yes atraumatic Eyes General: appearance normal, both eyes and all related structures Sclerae: sclerae normal EOM: EOMs intact bilaterally Neck Neck: Yes supple Lymphatic: no lymphadenopathy noted Resp Effort & Inspection: normal respiratory effort and no use of accessory muscles Auscultation: clear to auscultation bilaterally Cardio Rate: regular rate Rhythm: regular rhythm Heart sounds: no gallops, no murmurs and no rubs Skin General skin exam: other ( warm) Extrem General: No clubbing, No cyanosis and No edema Assessment & Plan Assessment & Plan (1) BULL (dyspnea on exertion): Code(s): R06.00 - Dyspnea, unspecified Plan: Appears to be multifactorial with contribution from underlying pulmonary, cardiac, and deconditioning. Pulmonary component well controlled at this time. Cardiopulmonary exercise test with normal pulmonary and cardiac reserve. (2) Moderate persistent asthma: Code(s): J45.40 - Moderate persistent asthma, uncomplicated Plan: Well controlled on current regimen of Advair 115. Continue current regimen. Coding Level of Care Code Est Pt Level 4 (43750) Diagnoses BULL (dyspnea on exertion) R06.00 Moderate persistent asthma J45.40
== END 2023-06-04 11:44 | disposition home or self-care (01) ==
PROVIDERS: PCP Internal Medicine; Visit Provider Internal Medicine Pulmonary Disease
DX: R06.00 Dyspnea, unspecified (principal); J45.40 Moderate persistent asthma, uncomplicated
CPT/HCPCS: 99214

== ENCOUNTER → 2023-06-04 11:22 | Outpatient (BNVA) | payer MEDICARE, SELFPAY | PROVIDERS: PCP Internal Medicine; Visit Provider Internal Medicine Pulmonary Disease | DX: R06.00 Dyspnea, unspecified (principal); J45.40 Moderate persistent asthma, uncomplicated | CPT/HCPCS: 99212 ==

== ENCOUNTER 2023-07-12 12:26 | Inpatient (IN) | payer MEDICARE, SELFPAY ==
[2023-07-12] VITALS (8 sets, daily range): BP systolic 113–144; BP diastolic 76–94; PULSE 98–129; RESP 16–19; TEMP 36.4–36.6; O2SAT 95–100; BMI 29.8
--- NOTE | ~2023-07-12 | XR_ITS ---
EXAMINATION: XR CHEST CLINICAL INFORMATION: Shortness of breath COMPARISON: None available. TECHNIQUE: Frontal view of the chest was obtained. FINDINGS: There is moderate biconvex thoracolumbar scoliosis present. No other significant abnormality is noted involving the heart, lungs, mediastinum, bony thorax or soft tissues. XR/XR chest 1V IMPRESSION: No acute intrathoracic disease. Scoliosis.
--- NOTE | ~2023-07-12 | CT_ITS ---
EXAMINATION: CT ANGIOGRAM OF THE CHEST WITH AND WITHOUT CONTRAST (CT PULMONARY ANGIOGRAM FOR PE) CLINICAL INFORMATION: sob, tachycardic, non compliant w thinners COMPARISON: Chest radiograph earlier today TECHNIQUE: Prior to contrast administration, noncontrast localization images were obtained. Subsequently, multidetector volumetric imaging was performed from the thoracic inlet to below the diaphragms following the administration of 65 mL Omnipaque 350 intravenous contrast. No contrast reaction reported Sagittal, coronal, and MIP oblique sagittal reformatted images were obtained on the CT workstation, uploaded to PACS, and reviewed. This CT examination was performed using dose optimization techniques as appropriate, variously including the following: *Automated exposure control *Adjustment of mA and/or kV according to patient size (this includes techniques or standardized protocols for targeted exams where dose is matched to indication/reason for exam; i.e. extremities or head) *Use of iterative reconstruction technique Total exam dose-length product 460 mGy-cm FINDINGS: QUALITY OF STUDY/CONTRAST BOLUS: Satisfactory. PULMONARY ARTERIES: Extensive pulmonary emboli are seen involving all lobes of the lungs most marked in the right lower lobe and middle lobe with satellite embolus in the right main pulmonary artery extending into both lower lobe and middle lobe branches. Some small emboli are present in the right upper lobe. Emboli are present in the left upper lobe as well as left lower lobe. THORACIC AORTA: No aneurysm. LUNG: Multiple small pulmonary nodules are seen in the upper lobes measuring about 3 mm in size (for example right upper lobe 6:77 and 80). No focal consolidation is seen. Left basilar atelectasis is seen. PLEURA: No pleural effusion or pneumothorax. MEDIASTINUM: Normal heart size. No pericardial effusion. No hilar or mediastinal lymphadenopathy. There is bowing of the intraventricular septum consistent with elevated right-sided heart pressure. CORONARY ARTERY CALCIFICATION: None visualized on this study. CHEST WALL/AXILLA: No axillary or internal mammary lymphadenopathy. OSSEOUS STRUCTURES: No acute or suspicious osseous abnormality. Some mild degenerative changes are present in the spine. UPPER ABDOMEN: Moderate hiatal hernia is present. No reflux of contrast into the hepatic veins to suggest elevated right heart pressures. CT/CT angio chest PE protocol IMPRESSION: 1. Extensive bilateral pulmonary emboli with evidence of elevated right-sided heart pressure. 2. VTE: positive. 3. Multiple small pulmonary nodules are seen in the upper lobes measuring about 3 mm in size (for example right upper lobe 6:77 and 80). According to the UPDATED 2017 Fleischner Society recommendations, the advised follow-up imaging for nodules <6mm in the upper lobes is not necessarily required in low-risk patients. In high-risk patients with a nodule in the upper lobe and/or demonstrating suspicious morphology, an optional CT follow-up at 12 months may be obtained. If stable at 12 months, no further follow-up is recommended.
--- NOTE | 2023-07-12 12:38 | ECG_ITS ---
Test Reason : AFIB Blood Pressure : / mmHG Vent. Rate : 121 BPM Atrial Rate : 000 BPM P-R Int : 000 ms QRS Dur : 070 ms QT Int : 292 ms P-R-T Axes : 000 006 -03 degrees QTc Int : 414 ms Atrial fibrillation with rapid ventricular response Septal infarct , age undetermined Cannot rule out Inferior infarct , age undetermined Abnormal ECG No previous ECGs available Referred By: Bell Casper Electronically Signed By:Eran Butler
--- NOTE | 2023-07-12 12:45 | ED.GENADULT ---
HPI - General Adult General Chief complaint: Dyspnea Stated complaint: afib Time Seen by Provider: 07/12/23 12:32 Source: patient and EMS Mode of arrival: EMS Limitations: no limitations History of Present Illness HPI narrative: Patient comes to the emergency room complaining of shortness of breath, states she does not feel quite right. Patient states that yesterday she was fatigue all day, did not think much of it. Today, patient started feeling a bit short of breath. Thought that her asthma was acting up, use her Advair and albuterol with no significant relief. Patient drove herself to urgent care. On arrival, an EKG was done, showed AFib with RVR heart rate in the 130s. An ambulance was called and patient was brought to the emergency room. Patient states that she does not have palpitations or chest pain. Patient states that she feels that ?something is not right?. Related Data Home Medications ?Medication ?Instructions ?Recorded ?Confirmed digoxin 125 mcg (0.125 mg) tablet 125 mcg PO MOWEFR 07/13/23 07/13/23 memantine 5 mg tablet 5 mg PO BID 07/13/23 07/13/23 Previous Rx's ?Medication ?Instructions ?Recorded omeprazole 40 mg capsule,delayed 40 mg PO DAILY #30 caps 09/12/21 release rosuvastatin 20 mg tablet 20 mg PO DAILY #90 tabs 09/14/22 fluticasone propionate 50 1 spray intranasal DAILY 30 days 12/28/22 mcg/actuation nasal #16 grams spray,suspension rivaroxaban 20 mg tablet (Xarelto) 20 mg PO DAILY #90 tabs 01/01/23 citalopram 20 mg tablet 20 mg PO DAILY 90 days #90 tabs 03/17/23 metoprolol succinate 50 mg 50 mg PO DAILY 90 days #90 tabs 03/24/23 tablet,extended release 24 hr fluticasone propionate 115 2 puff inhalation Q12H #12 ea 03/31/23 mcg-salmeterol 21 mcg/actuation HFA inhaler (Advair HFA) Allergies Allergy/AdvReac Type Severity Reaction Status Date / Time doxycycline Allergy Mild Rash Verified 07/12/23 12:50 lorazepam Allergy Unknown unknown Verified 03/24/23 14:39 pantoprazole Allergy Unknown NAUSEA Verified 03/24/23 14:39 amoxicillin [AMOXICILLIN] AdvReac Intermediate NAUSEA/VOMI Verified 03/24/23 14:39 TING Review of Systems Review of Systems: Constitutional : No Weight loss, No Fever, No Chills, No Night Sweats, No Fatigue, No Malaise ENT/Mouth : No Hearing loss, No Ear Pain, No Nasal Congestion, No Sinus Pain, No Hoarseness, No sore throat, No Rhinorrhea, No Swallowing Difficulty Eyes: No Eye Pain, No Swelling, No Redness, No Foreign Body, No Discharge, No Vision Changes Cardiovascular : No Chest Pain, No SOB, complaining of shortness of breath, no orthopnea, chronic lymphedema bilaterally in lower extremities Respiratory : No Cough, No Sputum, complaining of wheezing, complaining of intermittent shortness of breath Gastrointestinal : No Nausea, No Vomiting, No Diarrhea, No Constipation, No abdominal Pain, No Hematochezia, No Melena Genitourinary : no irregular bleeding, No Dysuria, No Urinary Frequency, No Hematuria, No Urinary Incontinence, No Urgency, No Flank Pain, No Urinary Flow Changes, No Hesitancy Musculoskeletal : No joint pain, No Myalgias, No Joint Swelling Skin : No Skin Lesions, No rash Neuro : No Weakness, No Numbness, No Paresthesias, No Loss of Consciousness, No Dizziness, No Headache Psych : No Anxiety/Panic, No Depression, No SI/HI/AH/VH, No Social Issues, Heme/Lymph: No Bruising, No Bleeding,No Lymphadenopathy Endocrine : No Polyuria, No Polydipsia, No Temperature Intolerance PMFSH Past Medical History Medical History Chronic a-fib Acute GI bleeding Moderate persistent asthma Surgical History Status post surgical removal of malignant neoplasm of skin Family History Family History Father No problems noted. Mother Cerebral brain hemorrhage Social History Social History Household Members: None Housing: House Do you presently have visiting nurse or other home services: No Alcohol intake: current Alcohol intake frequency: a few times a month Patient Tobacco Use Status: Never used Tobacco Smoked in Last 30 Days: No e-Cigarette/Vaping Use: Never Used Second Hand Smoke Exposure: Yes Use of substances other than those prescribed or required for medical reasons: No Advance Directives: No Advance Directives Information Provided: No Advance Directives Date on File: 09/15/21 Do you have a plan to hurt others: No Plan Nutrition Risks: No Nutritional Risk service: No Current occupational status: retired Cognitive needs: No Hearing needs: No Vision needs: Yes Physical Exam ED Vital Signs: Vital Signs - 24 hr 07/12/23 17:35 07/12/23 20:26 07/12/23 22:10 Temperature 97.6 F Pulse Rate 104 H 102 H 103 H Respiratory Rate 19 16 18 Blood Pressure 113/76 134/86 Pulse Oximetry 97 99 100 Oxygen Delivery Method Nasal Cannula Nasal Cannula Nasal Cannula Oxygen Flow Rate 2 2 3 BMI result Body Mass Index 29.8 Const Other: Appearance: Alert. Oriented X3. No acute distress. Eyes: Pupils equal, round and reactive to light. ENT: Pharynx normal. Neck: Normal inspection. Neck supple. No lymph nodes noted. No crepitus CVS: Irregularly irregular heart rate in the 120s to 130s Respiratory: No respiratory distress. Breath sounds normal. No Wheezing. No rales Abdomen: Soft and nontender. No rigidity. No distention. Skin: Skin warm and dry. Normal skin color. Normal skin turgor. Extremities: No lower extremity edema. No Lacerations. No Rash Neuro: Oriented X 3. No motor deficit. No sensory deficit. Moving all extremities. No slurred speech. CN 2 through 12 grossly intact Psych: calm, cooperative, normal affect Course Course Course Narrative: -all of patient's labs pending -patient is in atrial fibrillation with RVR, patient received 5 mg metoprolol in the ED. -at home, patient takes 50 mg of metoprolol and digoxin 0.125 mg Wednesday Medications Administered Generic Name Dose Route Start Last Admin Trade Name Freq PRN Reason Stop Dose Admin Albuterol/Ipratropium 3 ml 07/13/23 08:00 07/13/23 15:34 Albuterol/Iprat 2.5/0.5mg 3 Ml Ampul.Neb INHALE Not Given RQ4H WHILE AWAKE JORGE Heparin Sodium/Sodium Chloride 25,000 unit in 250 mls @ 0 mls/hr 07/13/23 00:15 07/13/23 12:45 Heparin Sodium,Porcine/1/2ns IVCONT 10 units/kg/hr .Q0M JORGE 8.98 mls/hr Titration Protocol Per Protocol Methylprednisolone Sodium Succinate 40 mg 07/13/23 09:00 07/13/23 11:00 Methylprednisolone Sod Succ 40 Mg/Ml Vial IVPUSH 40 mg Q12H JORGE Administration Sodium Chloride 3 ml 07/13/23 08:00 07/13/23 15:35 0.9 % Sodium Chloride Flush 3 Ml Syringe IVFLUSH Not Given QSHIFT JORGE Discontinued Medications Generic Name Dose Route Start Last Admin Trade Name Freq PRN Reason Stop Dose Admin Heparin Sodium (Porcine) 7,200 unit 07/13/23 01:00 07/13/23 01:10 Heparin Sodium,Porcine 5,000 Unit/Ml Vial 80 unit/kg (7200 unit) 07/13/23 01:01 7,200 unit IVPUSH Administration ONCE ONE Magnesium Sulfate 2 gm in 50 mls @ 25 mls/hr 07/13/23 00:30 07/13/23 02:50 Magnesium Sulfate/H2o IV 07/13/23 02:29 Infused ONCE ONE Infusion Iohexol 100 ml 07/12/23 20:09 07/12/23 20:09 Iohexol 350 Mg/Ml 100 Ml Infus..Btl IV 07/12/23 20:10 65 ml ONCE ONE Administration Methylprednisolone Sodium Succinate 125 mg 07/13/23 00:28 07/13/23 00:46 Methylprednisolone Sod Succ 125 Mg/2 Ml Vial IVPUSH 07/13/23 00:29 125 mg ONCE ONE Administration Metoprolol Tartrate 5 mg 07/12/23 12:51 07/12/23 13:05 Metoprolol Tartrate 5 Mg/5 Ml Vial IVPUSH 07/12/23 12:52 5 mg ONCE ONE Administration Protocol Medical Decision Making Medical Decision Making MDM Narrative: -my interpretation of EKG: Atrial fibrillation with RVR, heart rate 121, no ST segment depression or elevation, nonspecific T-wave inversion in lead 3, QTC 414 -my interpretation of labs: Normal hematology and chemistry, BNP 73, troponin slightly bumped at 40 -my interpretation of chest x-ray, no obvious abnormalities, no pneumonia or CHF. -troponin number to do at 16:30 -patient's initial heart rate in the 130s, patient was given a dose of mg IV metoprolol. Heart rate improved to 100-110. -patient admits that she has not compliant with her medications, forgets to take her medications ?sometimes? does not take her medication, states that did not take her meds today. D dimer positive: 979, will f/u with a CTA to r/o PE. Pt at high risk due to A fib and med non compliance CTA results: extensive bilateral PEs with R sided hearth pressure Discussed pt with Dr. Christie, pt needs heparin drip, and will be admitted Differential Diagnosis Differential Diagnoses: The differential diagnosis associated with the presentation includes (asthma, chf, PE, viral syndrome) Admission/Observation Consideration of admission/observation: Escalation of care including admission/observation considered Consult Healthcare Provider Management of the patient was discussed with: Hospitalist Lab Data [facility] Lab Attestation statement: I reviewed the patient's lab results. 07/13/23 05:10 07/13/23 05:10 Labs: Lab Results 07/12/23 07/12/23 Range/Units 13:34 16:51 WBC 9.4 (4.8-10.8) X10*3/uL RBC 4.61 (4.20-5.50) X10*6/uL Hgb 12.5 (12.0-16.0) g/dl Hct 40.6 (37.0-47.0) % MCV 88.1 (80.0-98.0) fL MCH 27.1 (27.0-33.0) pg MCHC 30.8 L (31.0-35.0) g/dl RDW 16.4 H (11.0-16.0) % Plt Count 326 (160-400) X10*3/uL MPV 10.1 (9.4-12.3) fL Immature Gran % (Auto) 0.4 (0.0-0.4) % Neut % (Auto) 84.7 H (45-73) % Lymph % (Auto) 7.1 L (20-40) % [place] % (Auto) 6.9 (2-11) % Eos % (Auto) 0.5 (0-4) % Baso % (Auto) 0.4 (0-2) % Lymph # (Auto) 0.7 L (1.2-4.9) X10*3/uL [place] # (Auto) 0.7 (0.1-1.2) X10*3/uL Eos # (Auto) 0.1 (0.0-0.4) X10*3/uL Baso # (Auto) 0.0 (0.0-0.2) X10*3/uL Abs Immat Gran (auto) 0.04 H (0.00-0.03) X10*3/uL Absolute Neuts (auto) 8.0 (2.0-8.3) x10*3/uL Absolute Nucleated RBC 0.000 (0.0-0.012) X10*3/uL Nucleated RBC % (auto) 0.0 (0.0-0.2) /100WBC PT 12.6 (11.1-13.3) SEC INR 1.0 (0.9-1.1) D-Dimer High Sensitivty 979 NG/ML VBG pH 7.40 (7.32-7.43) VBG pCO2 41 mmHg VBG pO2 40 mmHg VBG HCO3 26 (22-26) mmol/L VBG O2 Saturation 67.0 % VBG Base Excess 1.4 mmol/L Sodium 141 (135-145) mmol/L Potassium 4.4 (3.3-5.1) mmol/L Chloride 106 (96-108) mmol/L Carbon Dioxide 25 (22-29) mmol/L Anion Gap 14 (12-20) BUN 15 (9-16) mg/dL Creatinine 0.70 (0.5-1.4) mg/dL Estim Creat Clear Calc 71.1 Estimated GFR > 60 Random Glucose 99 (60-115) mg/dL Calcium 10.1 (8.4-10.2) mg/dL Magnesium 1.9 (1.6-2.6) mg/dL Total Bilirubin 0.4 (0.0-1.0) mg/dL Direct Bilirubin 0.1 (0.0-0.5) mg/dL AST 28 (5-31) U/L ALT 15 (0-31) U/L Alkaline Phosphatase 106 (39-117) U/L Troponin I High Sens 40.0 H 53.9 H* (<3.5-17.0) ng/L B-Natriuretic Peptide 73 (<100) pg/mL Total Protein 6.8 (6.5-8.0) g/dL Albumin 3.8 (3.5-5.0) g/dL Independent Interpretation I performed an independent interpretation of an: CT Scan Radiology Impression Discussion of test interpretation with radiology: I have reviewed the radiologist's reading. Radiologist Impression: PULMONARY ARTERIES: Extensive pulmonary emboli are seen involving all lobes of the lungs most marked in the right lower lobe and middle lobe with satellite embolus in the right main pulmonary artery extending into both lower lobe and middle lobe branches. Some small emboli are present in the right upper lobe. Emboli are present in the left upper lobe as well as left lower lobe. THORACIC AORTA: No aneurysm. LUNG: Multiple small pulmonary nodules are seen in the upper lobes measuring about 3 mm in size (for example right upper lobe 6:77 and 80). No focal consolidation is seen. Left basilar atelectasis is seen. PLEURA: No pleural effusion or pneumothorax. MEDIASTINUM: Normal heart size. No pericardial effusion. No hilar or mediastinal lymphadenopathy. There is bowing of the intraventricular septum consistent with elevated right-sided heart pressure. CORONARY ARTERY CALCIFICATION: None visualized on this study. CHEST WALL/AXILLA: No axillary or internal mammary lymphadenopathy. OSSEOUS STRUCTURES: No acute or suspicious osseous abnormality. Some mild degenerative changes are present in the spine. UPPER ABDOMEN: Moderate hiatal hernia is present. No reflux of contrast into the hepatic veins to suggest elevated right heart pressures. CT/CT angio chest PE protocol IMPRESSION: 1. Extensive bilateral pulmonary emboli with evidence of elevated right-sided heart pressure. 2. VTE: positive. 3. Multiple small pulmonary nodules are seen in the upper lobes measuring about 3 mm in size (for example right upper lobe 6:77 and 80). Prescription Management I considered prescription management with: Other (atrial fibrillation) Critical Care Time Critical Care Time Critical Care Time: Yes Total Critical Care Time: 75 Attestation: I have personally provided critical care time. Time includes review of lab data, radiology results, discussion with consultants, and monitoring for potential decompensation. Intervention performed as documented. Discharge Plan Discharge Clinical Impression: Bilateral pulmonary embolism Patient Disposition: Admitted As Inpatient
--- NOTE | 2023-07-12 12:53 | PC.NURSE ---
Pt presents to ED via EMS, reports SOB since this morning. Went to urgent care today and was found to be in afib 160s, has hx of afib. Reports she is not always compliant with her meds. Reports recent illness over past few days, cough, SOB, general malaise. Denies any N/V/D, fevers or CP. Alert and oriented, breathing even and slightly elevated, skin warm and dry. HR noted to be 120-130s irregular. Placed on bedside gambling monitor, afib. Other vitals stable. Able to speak in full sentences with no issues.
[2023-07-12] MEDS: Metoprolol Tartrate 5 MG/5 ML VIAL IVPUSH (13:05)
[2023-07-12 13:39] LABS: MANUAL DIFF FLAG NO
[2023-07-12 13:43] LABS: Venous Blood Gas Refer to POC result
[2023-07-12 13:43] LABS: Basophils Percent Auto 0.4 % (0-2); Eosinophils Absolute Auto 0.1 X10*3/uL (0.0-0.4); Eosinophils Percent Auto 0.5 % (0-4); Hematocrit 40.6 % (37.0-47.0); Hemoglobin 12.5 g/dl (12.0-16.0); Imm Gran Abs Auto 0.04 X10*3/uL (0.00-0.03); Imm Gran Pct Auto 0.4 % (0.0-0.4); Lymphocytes Absolute Auto 0.7 X10*3/uL (1.2-4.9); Lymphocytes Percent Auto 7.1 % (20-40); Mean Corpuscular HGB Conc 30.8 g/dl (31.0-35.0); Mean Corpuscular Hemoglobin 27.1 pg (27.0-33.0); Mean Corpuscular Volume 88.1 fL (80.0-98.0); Mean Platelet Volume 10.1 fL (9.4-12.3); Monocytes Absolute Auto 0.7 X10*3/uL (0.1-1.2); Monocytes Percent Auto 6.9 % (2-11); Neutrophils Percent Auto 84.7 % (45-73); Platelet Count 326 X10*3/uL (160-400); Red Blood Count 4.61 X10*6/uL (4.20-5.50); Red Cell Distribution Width 16.4 % (11.0-16.0); VBG Base Excess 1.4 mmol/L; VBG HCO3 26 mmol/L (22-26); VBG pCO2 41 mmHg; VBG pO2 40 mmHg; White Blood Count 9.4 X10*3/uL (4.8-10.8)
[2023-07-12 13:50] LABS: Prothrombin Time 12.6 SEC (11.1-13.3)
[2023-07-12 13:55] LABS: Alanine Aminotransferase 15 U/L (0-31); Albumin Level 3.8 g/dL (3.5-5.0); Alkaline Phosphatase 106 U/L (39-117); Anion Gap 14 (12-20); Aspartate Amino Transferase 28 U/L (5-31); Bilirubin Direct 0.1 mg/dL (0.0-0.5); Bilirubin Total 0.4 mg/dL (0.0-1.0); Blood Urea Nitrogen 15 mg/dL (9-16); Calcium 10.1 mg/dL (8.4-10.2); Carbon Dioxide 25 mmol/L (22-29); Chloride 106 mmol/L (96-108); Creatinine Clr Calc Pharmacy 71.1; Estimated Glomerular Filt Rate > 60; Glucose Random 99 mg/dL (60-115); Magnesium 1.9 mg/dL (1.6-2.6); Potassium 4.4 mmol/L (3.3-5.1); Sodium 141 mmol/L (135-145); Total Protein 6.8 g/dL (6.5-8.0)
[2023-07-12 14:01] LABS: B Type Natriuretic Peptide 73 pg/mL (<100)
[2023-07-12 15:32] LABS: D Dimer High Sensitivity 979 NG/ML
[2023-07-12 17:26] LABS: Troponin-I High Sensitivity 53.9 ng/L (<3.5-17.0)
--- NOTE | 2023-07-12 18:23 | PC.NURSE ---
Pt noted to have increased WOB on any exertion. Remains on 2L O2 via NC per MD order. No SOB at rest. Denies pain. HR 90-110.
--- NOTE | 2023-07-12 18:23 | PC.NURSE ---
Unable to get IV access for CTA at this time, multiple attempts by 2 RNs.
--- NOTE | 2023-07-12 19:16 | PC.NURSE ---
assumed care of pt at this time. multiple attempts previously for iv to obtain cta during previous shift. R. AC 20g IV established. ct staff notified. pt resting comfortably; denies cp/sob/n/v/d. afib on monitor 90-103 bpm. 100% on 2L NC. awaiting ct scan.
[2023-07-12] MEDS: iohexoL 350 MG/ML 100 ML INFUS..BTL IV (20:09)
[2023-07-13] VITALS (12 sets, daily range): BP systolic 124–155; BP diastolic 68–101; PULSE 84–111; RESP 10–20; TEMP 36.3–37.1; O2SAT 90–100; BMI 31.0
--- NOTE | 2023-07-13 00:07 | P.HPHOSP_ITS ---
History of Present Illness Date of Service: 07/13/23 Chief Complaint: Dyspnea This is a 82-year-old female with pertinent history of moderate persistent asthma not on home oxygen, lymphedema, paroxysmal atrial fibrillation not compliant with Xarelto, mood disorder, gastroesophageal reflux disease, mixed hyperlipidemia who presents to the emergency department for evaluation of dyspnea. Patient states it started 1 day prior to presentation. It has been constant, progressive and got worse on the day of presentation. It is worse with ambulation. Denies chest discomfort. Also has been having non productive cough and wheezing. Patient admits that she misses a few doses of her home prescription medications and has missed multiple doses of Xarelto in the past. No fever, chills, palpitations, abdominal pain, changes in urinary or bowel habits. In the emergency department, patient was found to be in AFib with RVR and given IV Lopressor 5 mg push. CTA with bilateral PE with heart strain. Troponin was found to be elevated. Patient requiring supplemental oxygen, 3 L in the ER Review of Systems 2 Constitutional: Constitutional: Reports fatigue, Reports lethargy and Reports malaise Cardiovascular: Cardiovascular: Reports dyspnea on exertion Respiratory: Respiratory: Reports cough, Reports dyspnea on exertion and Reports wheezing Gastrointestinal: Gastrointestinal: Reports no additional gastrointestinal complaints Genitourinary: Genitourinary: Reports no additional female genitourinary complaints Musculoskeletal: Musculoskeletal: Reports no additional musculoskeletal complaints Endocrine: Endocrine: Reports fatigue Allergic/Immunologic: Allergic/Immunologic: Reports wheezing [facility] Medical History Chronic a-fib Acute GI bleeding Moderate persistent asthma Family History Father No problems noted. Mother Cerebral brain hemorrhage Surgical History Status post surgical removal of malignant neoplasm of skin Social History Household Members: None Housing: House Do you presently have visiting nurse or other home services: No Alcohol intake: current Alcohol intake frequency: a few times a month Patient Tobacco Use Status: Never used Tobacco Smoked in Last 30 Days: No e-Cigarette/Vaping Use: Never Used Second Hand Smoke Exposure: Yes Use of substances other than those prescribed or required for medical reasons: No Advance Directives: No Advance Directives Information Provided: No Advance Directives Date on File: 09/15/21 Do you have a plan to hurt others: No Plan service: No Current occupational status: retired Cognitive needs: No Hearing needs: No Vision needs: Yes Meds Allergies Allergy/AdvReac Type Severity Reaction Status Date / Time doxycycline Allergy Mild Rash Verified 07/12/23 12:50 lorazepam Allergy Unknown unknown Verified 03/24/23 14:39 pantoprazole Allergy Unknown NAUSEA Verified 03/24/23 14:39 amoxicillin [AMOXICILLIN] AdvReac Intermediate NAUSEA/VOMI Verified 03/24/23 14:39 TING Home Medications ?Medication ?Instructions ?Recorded ?Confirmed ?Last Taken ?Type donepezil 10 mg tablet 10 mg PO DAILY 11/27/20 12/22/22 09/07/21 History triamcinolone acetonide 0.1 % 1 appl topical BID-TID 10/20/21 12/22/22 Unknown History topical cream Physical Exam 2 Vital Signs and Narrative: Vital Signs: Last Vital Signs Temp 97.6 F 07/12/23 22:10 Pulse 103 H 07/12/23 22:10 Resp 18 07/12/23 22:10 BP 134/86 07/12/23 20:26 Pulse Ox 100 07/12/23 22:10 O2 Del Method Nasal Cannula 07/12/23 22:10 O2 Flow Rate 3 07/12/23 22:10 BMI result Body Mass Index 29.8 Middle-aged female lying in bed in mild distress on supplemental oxygen Neck supple, no JVD Irregularly irregular, S1-S2 heard Bilateral wheezing present Abdomen soft nontender, no guarding, no rigidity Patient is awake, alert and oriented to self, place, time and person ; no focal motor deficit Psych: Normal mood Bilateral nonpitting edema Results Labs 07/12/23 13:34 07/12/23 13:34 Labs: Laboratory Results - last 24 hr 07/12/23 07/12/23 13:34 16:51 MCV 88.1 MCH 27.1 MCHC 30.8 L RDW 16.4 H Plt Count 326 MPV 10.1 Immature Gran % (Auto) 0.4 Neut % (Auto) 84.7 H Lymph % (Auto) 7.1 L Summers % (Auto) 6.9 Eos % (Auto) 0.5 Baso % (Auto) 0.4 Lymph # (Auto) 0.7 L Summers # (Auto) 0.7 Eos # (Auto) 0.1 Baso # (Auto) 0.0 Abs Immat Gran (auto) 0.04 H Absolute Neuts (auto) 8.0 Absolute Nucleated RBC 0.000 Nucleated RBC % (auto) 0.0 PT 12.6 INR 1.0 D-Dimer High Sensitivty 979 VBG pH 7.40 VBG pCO2 41 VBG pO2 40 VBG HCO3 26 VBG O2 Saturation 67.0 VBG Base Excess 1.4 Anion Gap 14 Estim Creat Clear Calc 71.1 Estimated GFR > 60 Random Glucose 99 Calcium 10.1 Magnesium 1.9 Total Bilirubin 0.4 Direct Bilirubin 0.1 AST 28 ALT 15 Alkaline Phosphatase 106 Troponin I High Sens 40.0 H 53.9 H* B-Natriuretic Peptide 73 Total Protein 6.8 Albumin 3.8 Imaging Radiologist's Impressions: Impressions Chest X-Ray 07/12/23 13:25 IMPRESSION: No acute intrathoracic disease. Scoliosis. Chest CTA 07/12/23 20:51 IMPRESSION: 1. Extensive bilateral pulmonary emboli with evidence of elevated right-sided heart pressure. 2. VTE: positive. 3. Multiple small pulmonary nodules are seen in the upper lobes measuring about 3 mm in size (for example right upper lobe 6:77 and 80). According to the UPDATED 2017 Fleischner Society recommendations, the advised follow-up imaging for nodules <6mm in the upper lobes is not necessarily required in low-risk patients. In high-risk patients with a nodule in the upper lobe and/or demonstrating suspicious morphology, an optional CT follow-up at 12 months may be obtained. If stable at 12 months, no further follow-up is recommended. Assessment and Plan (1) Hypoxia: Status: Acute (2) Bilateral pulmonary embolism: Status: Acute (3) Atrial fibrillation with RVR: Status: Acute (4) Asthma exacerbation: Status: Acute Plan This is a 82-year-old female with pertinent history of moderate persistent asthma not on home oxygen, lymphedema, paroxysmal atrial fibrillation not compliant with Xarelto, mood disorder, gastroesophageal reflux disease, mixed hyperlipidemia who presents to the emergency department for evaluation of dyspnea. #. Acute hypoxic respiratory failure due to acute submassive bilateral PE: Will admit patient with supplemental oxygen. Initiating IV heparin. Patient is noncompliant with Xarelto that she takes for AFib #. Acute exacerbation of moderate persistent asthma in the setting of above: Initiating systemic steroids, scheduled and p.r.n. DuoNebs. Continue home inhaler #. AFib with RVR: Rate controlled with IV Lopressor 5 mg push in the ER. Continue to monitor #. Mood disorder: Continue home mood stabilizers #. Gastroesophageal reflux disease: On PPI #. Mixed hyperlipidemia: On statin Med rec pending DVT prophylaxis: Heparin Full code Admit as inpatient and will require two night minimum hospital stay for IV heparin, supplemental oxygen, close monitoring of heart rate and respiratory status (as above), which is not possible in a lesser acute setting. Quality Stroke Does the patient have a stroke diagnosis?: No VTE Prior VTE?: No VTE Risk Level:: Medical - moderate - high VTE Device Contraindication: Treatment Not Indicated VTE Drug Contraindication: N/A - Med Ordered
[2023-07-13 00:39] LABS: PTT Heparin Drip 33.1 SEC (53-77.9)
[2023-07-13] MEDS: methylPREDNISolone Sod Succ 125 MG/2 ML VIAL IVPUSH (00:46)
[2023-07-13] MEDS: Magnesium Sulfate/H2O 2 GM/50 ML PIGGYBACK IV (00:48)
--- OUTSIDE RECORDS SUMMARY | 2023-07-13 00:51 | XMS_ITS | Patient Health Record ---
[facility] Address [address] [place] [address] Care Team Providers Care Full Charge Bookkeeper Name Role Phone Cesar ENGLISH, [facility] Provider Aman Kohler Unavailable [phone] ALLERGIES Allergen (clinical drug ingredient) Drug/Non Drug Allergy documented on EMR Reaction Allergy Type Onset Date Status Wood wood (uncoded) nose gets stuff Allergy Active amoxicillin Amoxicillin Unknown Drug Allergy Act teena Powders Unknown Drug Allergy Active REASON FOR REFERRAL No Information MEDICATIONS Medication SIG (Take, Route, Frequency, Duration) Notes Start Date End Date Status Claritin Active Omeprazole 40 MG 1 tablet Orally Once a day Active Multivitamins Active Fluticasone Furoate Active Diflucan 200 MG 1 tablet Orally Once a week for 30 days Not-Taking Flovent HFA 44 MCG/ACT 1 puff Inhalation Twice a day Active Aspirin Not-Taking Glucosamine Active Cholestyramine 4 GM/DOSE 1 Orally Twice a day Not-Taking Gemfibrozil 600 MG Orally A ctive Cozaar Not-Taking CeleBREX 200 MG 1 capsule Orally Onc e a day Active Extra-Depth Diabetic Shoes with 3 Pair Custom heat-molded multi-density innersoles . for 1 year . Dx:please accomodate for ulcer plantar left 2nd mtpj in her inserts for . 06/05/2014 Active Citalopram Hydrobromide Active Xarelto 20 MG Orally Active Cod Liver Oil Active Fenofibrate Not-Taki ng Donepezil HCl Active Eliquis Not-Taking Albuterol Sulfate Ac tive Metoprolol Succinate Active AmLactin 12 % 1 application to affected area Externally Twice a day to feet for 30 days Active IMMUNIZATIONS Vaccine Route Administration Date Status Comme nts COVID-19 Moderna Vaccine Unknown 04/09/2020 Administere d COVID-19 Moderna Vaccine Unknown 05/07/2020 Administere d Influenza Unknown 12/30/2018 Administered Pneumococcal Unknown 04/24/2015 Administered SOCIAL HISTORY Tobacco Use: Social History Observation Description Date Details (start date - stop date) Never Smoker NA - NA Sex Assigned At : Social History Observation Description Sex Assigned At Unknown Tobacco Use/Smoking Question Answer Notes Are you a: nonsmoker Additional Findings: Tobacco Non-User Current no n-smoker Alcohol Screen Question Answer Notes Did you have a drink containing alcohol in the p ast year? Yes Points 0 Interpretation Negative Tobacco use other than smoking: Question Answer Notes Are you an other tobacco user? No PROBLEMS Problem Type ICD Code Onset Dates Problem Status W/U Status Risk SNOMED Code Notes Problem Unspecified atherosclerosis of [place] arteries of extremities, bilateral legs (I70.203) Active confirmed Atherosclerosis of [place] arteries of the extremities (995286455674705) Problem Lymphedema (I89.0) Active confirmed [id number] VITAL SIGNS Height 5 ft 7 in in 07/24/2022 Weight 196 lbs 07/24/2022 BMI 30.69 kg/m2 07/24/2022 Encounters Encounter Location Date Provider Diagnosis [address] [address] 07/24/2022 Aman Agrawal Tinea unguium B35.1 ; Other viral warts B07.8 ; Pain in left foot M79.672 ; Pain in right foot M79.671 ; Pain in right toe(s) M79.674 ; Pain in left toe(s) M79.675 ; Unspecified atherosclerosis of [place] arteries of extremities, bilateral legs I70.203 ; Lymphedema I89.0 and Xerosis cutis L85.3 [facility] [address] [place] [address] [facility] [address] 10/23/2022 Aman Agrawal Tinea unguium B35.1 ; Other viral warts B07.8 ; Pain in left foot M79.672 ; Pain in right foot M79.671 ; Pain in right toe(s) M79.674 ; Pain in left toe(s) M79.675 ; Unspecified atherosclerosis of [place] arteries of extremities, bilateral legs I70.203 ; Lymphedema I89.0 and Xerosis cutis L85.3 ASSESSMENTS Encounter Date Diagnosis Assessment Notes Treatment Notes Treatment Clinical Notes 07/24/2022 Other viral warts (ICD-10 - B07.8) 07/24/2022 Tinea unguium (ICD-1 0 - B35.1) 10/23/2022 Tinea unguium (ICD-1 0 - B35.1) 07/24/2022 Pain in left foot (ICD-10 - M79.672) 10/23/2022 Other viral warts (ICD-10 - B07.8) 10/23/2022 Pain in left foot (ICD-10 - M79.672) 07/24/2022 Pain in right foot (ICD-10 - M79.671) 07/24/2022 Pain in right toe(s) (ICD-10 - M79.674) 10/23/2022 Pain in right foot (ICD-10 - M79.671) 10/23/2022 Pain in right toe(s) (ICD-10 - M79.674) 07/24/2022 Pain in left toe(s) (ICD-10 - M79.675) 07/24/2022 Unspecified atherosclerosis of [place] arteries of extremities, bilateral legs (ICD-10 - I70.203) 10/23/2022 Pain in left toe(s) (ICD-10 - M79.675) 10/23/2022 Unspecified atherosclerosis of [place] arteries of extremities, bilateral legs (ICD-10 - I70.203) 07/24/2022 Lymphedema (ICD-10 - I89.0) 07/24/2022 Xerosis cutis (ICD-1 0 - L85.3) 10/23/2022 Lymphedema (ICD-10 - I89.0) 10/23/2022 Xerosis cutis (ICD-1 0 - L85.3) PLAN OF TREATMENT Pending Test Test Name Order Date X ray : Foot, left 2V 05/29/2011 X ray : Foot, right 2V 05/29/2011 *Liver Function Test (LFT) 09/27/2017 X ray : Foot, left 3V 06/05/2014 66410-SXBPLNM NAIL, 6 OR MORE 01/13/2013 30502-EFEUGJX NAIL, 6 OR MORE 07/28/2013 08222-GFNQEJF NAIL, 6 OR MORE 11/14/2013 79840-HQJNRDN NAIL, 6 OR MORE 02/09/2014 12428-KFHHVFK NAIL, 6 OR MORE 05/22/2014 66886-DMAGBTW NAIL, 6 OR MORE 09/10/2014 91133-VNNZQJY NAIL, 6 OR MORE 11/30/2014 04901-QYFEGLG NAIL, 6 OR MORE 03/01/2015 59323-IMCVPBD NAIL, 6 OR MORE 05/24/2015 91723-JANZBAB NAIL, 6 OR MORE 08/16/2015 74467-FBZFZZJ NAIL, 6 OR MORE 11/08/2015 59287-JBCLZKB NAIL, 6 OR MORE 11/22/2015 96168-SEEQVHA NAIL, 6 OR MORE 05/29/2011 28944-PGZZELP NAIL, 6 OR MORE 08/14/2011 85870-OXXVGYL NAIL, 6 OR MORE 10/23/2011 22905-FTTMIZM NAIL, 6 OR MORE 01/05/2012 62737-PXLLBSH NAIL, 6 OR MORE 11/14/2010 21588-NHLNZCU NAIL, 6 OR MORE 11/18/2010 82142-JMNSLRJ NAIL, 6 OR MORE 04/05/2012 58930-IPSEBMJ NAIL, 6 OR MORE 07/08/2012 72461-MCAMMLT NAIL, 6 OR MORE 07/12/2012 43824-FHZSKWI NAIL, 6 OR MORE 10/14/2012 53914-VKVQUEY NAIL, 6 OR MORE 04/21/2013 05563-QFLTRQB NAIL, 6 OR MORE 09/27/2017 71326-HDTPAEF NAIL, 6 OR MORE 03/09/2017 69330-EJARPFT NAIL, 6 OR MORE 02/11/2016 74803-ZYUVFTC NAIL, 6 OR MORE 05/29/2016 55658-UFWZPVW NAIL, 6 OR MORE 08/28/2016 31836-TBFPTFW NAIL, 6 OR MORE 12/08/2016 84227-MPFNKRZ NAIL, 6 OR MORE 12/28/2017 57356-Ylhx Destruction, 1-14 08/28/2016 77246-Dsem Destruction, 03-0702/11/2016 06842-Cbyv Destruction, 03-0711/30/2014 56615-Tyjs Destruction, 03-0704/21/2013 48250-Nfqk Destruction, 03-0710/14/2012 01142-Vfmx Destruction, 03-0707/12/2012 08064-Otih Destruction, 03-0707/08/2012 09638-Qign Destruction, 03-0701/05/2012 66072-Mkjg Destruction, 03-0704/05/2012 66820-Qxif Destruction, 03-0711/18/2010 30585-Xekc Destruction, 03-0711/14/2010 96960-Avcc Destruction, 03-0702/27/2011 93702-Uvho Destruction, 03-0705/29/2011 65074-Wxla Destruction, 03-0710/23/2011 58218-Uyaz Destruction, 03-0708/14/2011 05309-Yrnm Destruction, 03-0711/22/2015 25208-Cuzo Destruction, 03-0711/08/2015 82024-Udrp Destruction, 03-0708/16/2015 42045-Samu Destruction, 03-0705/24/2015 11414-Mcjx Destruction, 03-0703/01/2015 37999-Dyvh Destruction, 03-0702/09/2014 57296-Ucwi Destruction, 03-0709/10/2014 96334-Whlc Destruction, 03-0705/22/2014 85715-Mxkm Destruction, 03-0707/03/2014 94509-Usly Destruction, 03-0711/14/2013 28034-Sdmy Destruction, 03-0707/28/2013 41595-Clqv Destruction, 03-0701/13/2013 71180-Jrpfjjax Plate 01/13/2013 69054-Dmqbnpek Plate 07/03/2014 13780-Uopnijhy Plate 07/28/2013 61622-Noclzmwj Plate 11/14/2013 46066-Oisztrmk Plate 02/09/2014 67088-Swtnzdpz Plate 05/22/2014 65460-Cybqurwk Plate 09/10/2014 11469-Vvxihpwt Plate 11/30/2014 20315-Kwisxuzs Plate 10/23/2011 99174-Upkdxnar Plate 01/05/2012 66036-Jhovstja Plate 05/29/2011 57415-Udhkmnbe Plate 02/27/2011 13275-Kdhjoflz Plate 11/18/2010 49103-Kpptpymh Plate 04/05/2012 17360-Lnxllund Plate 07/12/2012 89499-Oyaqfead Plate 07/08/2012 15417-Snecsbgt Plate 04/21/2013 98968-VGQSSHE SKIN/TISSUE 06/05/2014 48831-WAQFFRT SKIN/TISSUE 05/22/2014 65153-CHNZ SKIN LESIONS, OVER 4 03/01/19 16 25447-FUPF SKIN LESIONS, OVER 4 05/24/19 16 19095-CQCP SKIN LESIONS, OVER 4 08/16/19 16 42389-MPMU SKIN LESIONS, OVER 4 11/22/19 16 87879-GACY SKIN LESIONS, OVER 4 09/28/19 18 95414-PULA SKIN LESIONS, OVER 4 06/16/19 18 22262-DUQT SKIN LESIONS, OVER 4 12/29/19 18 53414-VSOV SKIN LESIONS, OVER 4 02/11/20 16 92936-WGPL SKIN LESIONS, OVER 4 05/30/19 17 73120-HWWU SKIN LESIONS, OVER 4 08/29/19 17 35907-TJZA SKIN LESIONS, OVER 4 12/09/19 17 85503-XBUY SKIN LESIONS, OVER 4 03/09/19 18 03709-HFJL SKIN LESIONS, OVER 4 03/29/19 19 44644-WOSK SKIN LESIONS, OVER 4 07/09/19 19 98111-CRLO SKIN LESIONS, OVER 4 10/08/19 19 66936-AYAW SKIN LESIONS, OVER 4 01/07/20 19 75218-ATZU SKIN LESIONS, OVER 4 04/07/19 20 49030-MKFO SKIN LESIONS, OVER 4 06/30/19 20 07760-UZQH SKIN LESIONS, OVER 4 09/29/19 20 44141-WUKW SKIN LESIONS, OVER 4 12/29/19 20 16586-EGFG SKIN LESIONS, OVER 4 04/09/19 21 89120-JKQU SKIN LESIONS, OVER 4 07/06/19 21 27374-JBFF SKIN LESIONS, OVER 4 10/05/19 21 54343-KNMZ SKIN LESIONS, OVER 4 01/04/20 21 02275-JDTR SKIN LESIONS, OVER 4 04/04/19 40233- Nail Unit Biopsy 06/15/2017 Insurance Providers Payer Name Payer Address Payer Phone Subscriber Number Group Number Insured Name Patient Relationship to Insured Coverage Start Date Coverage End Date [employer] [address] [place] [address] [id number] Madelyn Clark Self - patient is the insured MEDICAL (GENERAL) HISTORY Medical History History ICD Code asthma chicken pox hypertension measles mumps mumps measles hypertension chicken pox asthma Cellulitis Diverticulitis Surgical History Surgery Date(Month/Year) oral surgery 11/05 skin cancer removal forehead 11/28/13 Dental Implant 05/08/15 Hospitalization History Reason Date(Month/Year) [facility] [place]- bleeding ulcers 09/08-09/14 C couldn't open her eye 07/2018 [facility] [place], Diverticulitis 07/16/16-07/20/16 [facility] for Dental implant 05/08/15 MRI, TIA, MRA 08/06 oral surgery 11/05
[2023-07-13] MEDS: Heparin Sodium,Porcine 5,000 UNIT/ML VIAL 7200 UNIT IVPUSH (01:10)
[2023-07-13] MEDS: Heparin Sodium,Porcine/1/2NS 25,000 UNIT/250 ML IV.SOLN 12.57 UNIT IVCONT (01:11)
--- NOTE | 2023-07-13 01:14 | PC.NURSE ---
nsr on monitor at 94 bpm. heparin infusing per apr. vss. pt off o2; sats 100% on RA. pt denies sob/cp/n/v/d. ambulates to bathroom with steady gait. call rush within reach.
[2023-07-13 05:17] LABS: Basophils Percent Auto 0.1 % (0-2); Eosinophils Percent Auto 0.1 % (0-4); Hematocrit 35.3 % (37.0-47.0); Hemoglobin 11.3 g/dl (12.0-16.0); Imm Gran Abs Auto 0.02 X10*3/uL (0.00-0.03); Imm Gran Pct Auto 0.3 % (0.0-0.4); Lymphocytes Absolute Auto 0.5 X10*3/uL (1.2-4.9); MANUAL DIFF FLAG SCAN; Mean Corpuscular Hemoglobin 27.4 pg (27.0-33.0); Mean Corpuscular Volume 85.7 fL (80.0-98.0); Mean Platelet Volume 10.2 fL (9.4-12.3); Monocytes Absolute Auto 0.1 X10*3/uL (0.1-1.2); Monocytes Percent Auto 1.3 % (2-11); Neutrophils Absolute Auto 7.1 x10*3/uL (2.0-8.3); Neutrophils Percent Auto 92.2 % (45-73); Platelet Count 275 X10*3/uL (160-400); Red Blood Count 4.12 X10*6/uL (4.20-5.50); Red Cell Distribution Width 16.4 % (11.0-16.0); SCAN SMEAR FLAG 1; White Blood Count 7.7 X10*3/uL (4.8-10.8)
[2023-07-13 05:44] LABS: Anion Gap 16 (12-20); Blood Urea Nitrogen 13 mg/dL (9-16); Calcium 9.8 mg/dL (8.4-10.2); Carbon Dioxide 20 mmol/L (22-29); Chloride 108 mmol/L (96-108); Creatinine Clr Calc Pharmacy 71.5; Estimated Glomerular Filt Rate > 60; Glucose Random 184 mg/dL (60-115); Potassium 4.4 mmol/L (3.3-5.1); Sodium 140 mmol/L (135-145)
[2023-07-13 05:47] LABS: SLIDE REVIEW VERIFIED
--- NOTE | 2023-07-13 07:00 | CA_ITS ---
Transthoracic Echocardiogram Patient (Last, First, Middle): Madelyn Da Silva B Gender: Female Date of : 1940 Age: 82 Procedure Date: 07/13/2023 Procedure Type: Transthoracic Echocardiogram Location: ER Height: 170.18 cm Weight: 89.36 kg BSA: 2.01 m2 Heart Rate: 111 bpm BP: 126 / 74 mmHg Import Specialist: Referring MD: Radha Bergeron NP Symptoms: PE Study Quality: Adequate ECG Rhythm: Atrial Fibrillation w RVR Conclusions: - The left ventricular systolic function is normal. The visually estimated ejection fraction is between 65-70%. - There is mild tricuspid valve regurgitation. Findings Left Ventricle Normal left ventricular cavity size. There is mildly increased left ventricular wall thickness. The left ventricular systolic function is normal. The visually estimated ejection fraction is between 65-70%. There is no evidence of regional wall motion abnormalities. Diastolic function is indeterminate on the basis of available data. Right Ventricle Mildly increased right ventricular cavity size. There is normal right ventricular systolic function. Atria Mild biatrial enlargement. Aortic Valve There is a normal trileaflet aortic valve. There is no aortic valve stenosis. Trace to mild aortic regurgitation. Mitral Valve The mitral valve appears normal. There is trace mitral valve regurgitation. There is no mitral valve stenosis. Pulmonic Valve The pulmonic valve is likely normal. Tricuspid Valve Normal tricuspid valve structure. There is mild tricuspid valve regurgitation. Borderline pulmonary artery systolic pressure. Great Vessels The asc aorta is normal in size. Venous The inferior vena cava is mildly dilated and collapses less than 50% with inspiration. Pericardium/Pleural There is no evidence of pericardial effusion. Prior Study Comparison No significant change compared to prior study dated: 06/05/2022. Measurements 2D Linear Measurements IVSd: 1.22 0.6-0.9/0.6-1.0 cm LVIDd: 2.90 3.9-5.3/4.2-5.9 cm LVIDd Index: 1.44 2.4-3.2/2.2-3.1 cm/m2 LVIDs: 1.98 2.0-3.6 cm LVPWd: 1.25 0.7-1.1 cm Ao Root: 3.20 2.1-3.5 cm LA Diam: 3.50 2.7-3.8/3.0-4.0 cm LAIDs Index: 1.74 1.5-2.3 cm/m2 LV Mass: 135.68 67-162/88-224 g LV Mass Index: 67.50 43-95/49-115 g/m2 LVOT Diam: 2.00 3.0+(-)1.3 cm Mitral Valve MV Pk E: 1.10 MV Decel Time: 128.00 E'Lateral: 15.40 E'Medial: 12.70 E/E' Med: 8.70 E/E' Lat: 7.10 PHT: 37.00 MVA PHT: 5.95 Decel [place]: 8.59 Aortic Valve AoV Pk Carlton: 1.46 AoV Mn Carltno: 0.91 AoV VTI: 0.26 AoV Pk Grad: 9.00 Aov Mn Grad: 5.00 ANDREW Cont.VTI: 2.78 AI Pk Carlton: 4.04 AI [place]: 3.17 LVOT LVOT Pk Carlton: 1.22 LVOT Mn [place]: 0.81 LVOT VTI: 0.23 LVOT Pk Grad: 6.00 LVOT Mn Grad: 3.00 LVOT Diam: 2.00 LVOT Area: 3.14 Diastolic Function MV Pk E: 1.10 E'Medial: 12.70 E/E' Med: 8.70 E' Laterial: 15.40 E/E' Lat: 7.10 Right Ventricle TAPSE (mm): 26.10 Tricuspid Valve TR Pk Carlton: 2.84 TR Pk Grad: 32.00 RA Press: 8.00 RVSP: 40.00 Great Vessels Aorta Ao Root-2D: 3.20 2.0-3.7 cm Ao Asc: 3.50 2.1-3.4 cm Pulmonary Valve PV Pk Carlton: 1.28 Peak PV Grad: 7.00 Updated in Other Vendor System with Status of Final Harjeet Sesay MD electronically signed on 07/13/2023 12:46:43 PM with status of Final
--- NOTE | 2023-07-13 07:14 | PM.EVENT ---
Event Note Date of Service: 07/13/23 Event Note: This is a 82-year-old female with pertinent history of moderate persistent asthma not on home oxygen, lymphedema, paroxysmal atrial fibrillation not compliant with Xarelto, mood disorder, gastroesophageal reflux disease, mixed hyperlipidemia who presents to the emergency department for evaluation of dyspnea. Acute hypoxic respiratory failure due to acute submassive bilateral PE supplemental oxygen. IV heparin. Patient is noncompliant with Xarelto that she takes for AFib echocardiogram with EF of 65-70% with mild tricuspid valve regurgitation with no evidence of regional wall motion abnormalities AFib with RVR s/p IV lopresser in ED cardiology consultation Acute exacerbation of moderate persistent asthma in the setting of above Initiating systemic steroids scheduled and p.r.n. DuoNebs. Continue home inhaler Mood disorder Continue home mood stabilizers Gastroesophageal reflux disease On PPI Mixed hyperlipidemia On statin DVT prophylaxis: Heparin Attending Dr. Urena Full code Admit as inpatient and will require two night minimum hospital stay for IV heparin, supplemental oxygen, close monitoring of heart rate and respiratory status (as above), which is not possible in a lesser acute setting. Time Spent With Patient Time: Total time managing care of this patient today ____ minutes.
[2023-07-13] MEDS: Albuterol/Iprat 2.5/0.5MG 3 ML AMPUL.NEB INHALE ×3 (07:27→19:58)
--- NOTE | 2023-07-13 08:01 | PC.NURSE ---
requesting to get cleaned up in the bathroom, provided w/ new ritika and wipes. ambulates independently with steady gait, 2L nasal cannula w/ ambulation. heparin gtt continues, phlebotomy to draw ptt
[2023-07-13 09:23] LABS: PTT Heparin Drip 170.1 SEC (53-77.9)
--- NOTE | 2023-07-13 09:30 | PC.NURSE ---
PTT HD 170.1, heparin gtt paused at this time. plan for redraw PTT in one hour per protocol
--- NOTE | 2023-07-13 10:02 | PHA.MEDREC ---
Pharmacy Consult ? Medication Reconciliation Pharmacy has completed the medication reconciliation. Patient requested we called pharmacy and get run down of list. We contacted the pharmacy and was able to complete the list.
[2023-07-13 10:38] LABS: PTT Heparin Drip 96.8 SEC (53-77.9)
--- NOTE | 2023-07-13 10:53 | PC.NURSE ---
heparin continues to be paused d/t PTT HD 96.8, plan for repeat PTT HD at 1120
[2023-07-13] MEDS: methylPREDNISolone Sod Succ 40 MG/ML VIAL IVPUSH ×2 (11:00→21:42)
[2023-07-13 12:02] LABS: PTT Heparin Drip 52.8 SEC (53-77.9)
--- NOTE | 2023-07-13 12:41 | MHC.CM.PN ---
CM met with Patient at bedside, in the ED and addressed IMM with her; the original was given to Patient and a copy will be placed on the chart. Patient lives alone in a house and she required no services nor DME EQUINE VET. Home/self care is the goal and CM has initiated and will follow for dc planning. PCP is Dr.Asma Guerrero and HCP is Ryann.
[2023-07-13 19:08] LABS: PTT Heparin Drip 57.5 SEC (53-77.9)
--- NOTE | 2023-07-13 19:31 | PC.NURSE ---
PT currently on heparin drip running at 10u. PTT-HD resulted within normal range at 57.5 Per protocol no bolus and no rate change at this time. Next PTT-HD to be drawn 07/14/2023 @ 0100. Ordered entered in APR. Monitoring is ongoing.
--- NOTE | 2023-07-13 19:39 | MHC.EDTECH ---
This tech took over care of patient at 1900,upon entry to room patient was eating dinner,patient ate 75%,hourly rounds and vitals completed,HR was elevated at 111,RN was made aware,call rush in reach
--- NOTE | 2023-07-13 19:55 | PC.NURSE ---
Pt is requesting triamcinolone cream for bilateral leg lymphedema. Pt reports applying cream at home for relief. [place] text sent to Dr. Christie requesting an order as well as pts home meds not being ordered in the APR.
--- NOTE | 2023-07-13 21:02 | P.CONCA_ITS ---
History of Present Illness History of Present Illness Date of Service: 07/13/23 Chief complaint: acute PE Narrative: 82-year-old female with permanent atrial fibrillation on rivaroxaban, digoxin and metoprolol who is presenting with worsening shortness of breath starting on Wednesday. She said she has chronic shortness of breath due to asthma but since Wednesday breathing got really worse and she came to the emergency department where CT pulmonary angiogram showed pulmonary embolism. She was also noted to be in AFib with RVR. As mentioned she has permanent atrial fibrillation and has been fairly well rate controlled with digoxin and metoprolol obviously. It appears with that acute pulmonary embolism she had AFib with RVR. She has been missing her medications and also had air travel twice. She has also has not be eating much and is saying that her appetite is quite poor which are quite concerning symptom specially with pulmonary embolism. [facility] Past Medical History Medical History Chronic a-fib Acute GI bleeding Moderate persistent asthma Family History Family History Father No problems noted. Mother Cerebral brain hemorrhage Surgical History Surgical History Status post surgical removal of malignant neoplasm of skin Social History Social History Household Members: None Housing: House Do you presently have visiting nurse or other home services: No Alcohol intake: current Alcohol intake frequency: a few times a month Patient Tobacco Use Status: Never used Tobacco Smoked in Last 30 Days: No e-Cigarette/Vaping Use: Never Used Second Hand Smoke Exposure: Yes Use of substances other than those prescribed or required for medical reasons: No Advance Directives: No Advance Directives Information Provided: No Advance Directives Date on File: 09/15/21 Do you have a plan to hurt others: No Plan Nutrition Risks: No Nutritional Risk service: No Current occupational status: retired Cognitive needs: No Hearing needs: No Vision needs: Yes Meds Allergies Allergy/AdvReac Type Severity Reaction Status Date / Time doxycycline Allergy Mild Rash Verified 07/12/23 12:50 lorazepam Allergy Unknown unknown Verified 03/24/23 14:39 pantoprazole Allergy Unknown NAUSEA Verified 03/24/23 14:39 amoxicillin [AMOXICILLIN] AdvReac Intermediate NAUSEA/VOMI Verified 03/24/23 14:39 TING Active Medications: Current Medications Acetaminophen (Acetaminophen 325 Mg Tablet) 650 mg PO Q6H PRN PRN Reason: Pain, Mild (Pain Scale 1-3) Albuterol/Ipratropium (Albuterol/Iprat 2.5/0.5mg 3 Ml Ampul.Neb) 3 ml INHALE RQ4H WHILE AWAKE [facility] Last Admin: 07/13/23 19:58 Dose: 3 ml Albuterol/Ipratropium (Albuterol/Iprat 2.5/0.5mg 3 Ml Ampul.Neb) 3 ml INHALE Q4H PRN PRN Reason: Wheezing Atorvastatin Calcium (Atorvastatin Calcium 80 Mg Tablet) 80 mg PO DAILY [facility] Digoxin (Digoxin 0.125 Mg Tablet) 0.125 mg PO MOWEFR [facility] Escitalopram Oxalate (Escitalopram Oxalate 10 Mg Tablet) 10 mg PO DAILY [facility] Fluticasone Propionate (Fluticasone Propionate Nasal 16 Gm [place]) 1 spray NOSTRIL-B DAILY [facility] Fluticasone/Vilanterol (Fluticasone/Vilanterol 100/25 Blst.W.Dev) 1 puff INHALE RDAILY [facility] Last Admin: 07/13/23 20:15 Dose: Not Given Heparin Sodium (Porcine) (Heparin Sodium,Porcine 5,000 Unit/Ml Vial) 3,600 unit IVPUSH PROTOCOL BOLUS PRN; Protocol PRN Reason: 40 unit/kg - Heparin Protocol Heparin Sodium (Porcine) (Heparin Sodium,Porcine 5,000 Unit/Ml Vial) 7,200 unit IVPUSH PROTOCOL BOLUS PRN; Protocol PRN Reason: 80 unit/kg - Heparin Protocol Heparin Sodium/Sodium Chloride (Heparin Sodium,Porcine/1/2ns) 25,000 unit in 250 mls @ 0 mls/hr IVCONT .Q0M [facility]; Protocol Last Titration: 07/13/23 12:45 Dose: 10 units/kg/hr, 8.98 mls/hr Melatonin (Melatonin 3 Mg Tablet) 6 mg PO BEDTIME PRN PRN Reason: Insomnia Memantine (Memantine Hcl 5 Mg Tablet) 5 mg PO BID [facility] Methylprednisolone Sodium Succinate (Methylprednisolone Sod Succ 40 Mg/Ml Vial) 40 mg IVPUSH Q12H [facility] Last Admin: 07/13/23 11:00 Dose: 40 mg Metoprolol Succinate (Metoprolol Succinate Er 50 Mg Tab.Er.24h) 50 mg PO DAILY [facility]; Protocol Omeprazole (Omeprazole 40 Mg Capsule.Dr) 40 mg PO DAILY@0600 [facility] Ondansetron HCl (Ondansetron Hcl 4 Mg/2 Ml Vial) 4 mg IVPUSH Q8H PRN PRN Reason: Nausea and Vomiting Sodium Chloride (0.9 % Sodium Chloride Flush 3 Ml Syringe) 3 ml IVFLUSH QSHIFT [facility] Last Admin: 07/13/23 15:35 Dose: Not Given Triamcinolone Acetonide (Triamcinolone Acet 0.1 % Cream 15 Gm Tube) 1 appl TOPICAL BID [facility]; Protocol Home Medications ?Medication ?Instructions ?Recorded ?Confirmed ?Last Taken ?Type digoxin 125 mcg (0.125 mg) tablet 125 mcg PO MOWEFR 07/13/23 07/13/23 Unknown History memantine 5 mg tablet 5 mg PO BID 07/13/23 07/13/23 Unknown History Physical Exam 2 Vital Signs: Vital Signs: Last Vital Signs Temp 97.4 F 07/13/23 19:37 Pulse 102 H 07/13/23 20:00 Resp 18 07/13/23 20:00 BP 136/78 07/13/23 19:37 Pulse Ox 97 07/13/23 19:37 O2 Del Method Room Air 07/13/23 19:37 O2 Flow Rate 2 07/13/23 10:18 BMI result Body Mass Index 31.0 GENERAL APPEARANCE: in no acute distress, pleasant. NECK: no carotid bruit, no jugular venous distention. SKIN: no suspicious lesions, warm and dry. HEART: no murmurs, irregular rate and rhythm. Tachycardic. LUNGS: clear to auscultation bilaterally. ABDOMEN: soft, nontender. EXTREMITIES: no edema. PERIPHERAL PULSES: equal. NEUROLOGIC: No gross deficits, AAO X 3 Objective Labs and Meds 07/13/23 05:10 07/13/23 05:10 Lab results: Laboratory Results - last 24 hr 07/13/23 07/13/23 07/13/23 00:26 05:10 05:13 WBC 7.7 RBC 4.12 L Hgb 11.3 L Hct 35.3 L MCV 85.7 MCH 27.4 MCHC 32.0 RDW 16.4 H Plt Count 275 MPV 10.2 Immature Gran % (Auto) 0.3 Neut % (Auto) 92.2 H Lymph % (Auto) 6.0 L [place] % (Auto) 1.3 L Eos % (Auto) 0.1 Baso % (Auto) 0.1 Lymph # (Auto) 0.5 L [place] # (Auto) 0.1 Eos # (Auto) 0.0 Baso # (Auto) 0.0 Abs Immat Gran (auto) 0.02 Absolute Neuts (auto) 7.1 Absolute Nucleated RBC 0.000 Nucleated RBC % (auto) 0.0 Smear Tech's Comments VERIFIED aPTT Heparin Protocol 33.1 L Hold Blue Top SEE NOTE Sodium 140 Potassium 4.4 Chloride 108 Carbon Dioxide 20 L Anion Gap 16 BUN 13 Creatinine 0.71 Estim Creat Clear Calc 71.5 Estimated GFR > 60 Random Glucose 184 H Calcium 9.8 07/13/23 07/13/23 07/13/23 08:48 10:16 11:39 WBC RBC Hgb Hct MCV MCH MCHC RDW Plt Count MPV Immature Gran % (Auto) Neut % (Auto) Lymph % (Auto) [place] % (Auto) Eos % (Auto) Baso % (Auto) Lymph # (Auto) [place] # (Auto) Eos # (Auto) Baso # (Auto) Abs Immat Gran (auto) Absolute Neuts (auto) Absolute Nucleated RBC Nucleated RBC % (auto) Smear Tech's Comments aPTT Heparin Protocol 170.1 H* D 96.8 H D 52.8 L D Hold Blue Top Sodium Potassium Chloride Carbon Dioxide Anion Gap BUN Creatinine Estim Creat Clear Calc Estimated GFR Random Glucose Calcium 07/13/23 18:52 WBC RBC Hgb Hct MCV MCH MCHC RDW Plt Count MPV Immature Gran % (Auto) Neut % (Auto) Lymph % (Auto) [place] % (Auto) Eos % (Auto) Baso % (Auto) Lymph # (Auto) [place] # (Auto) Eos # (Auto) Baso # (Auto) Abs Immat Gran (auto) Absolute Neuts (auto) Absolute Nucleated RBC Nucleated RBC % (auto) Smear Tech's Comments aPTT Heparin Protocol 57.5 Hold Blue Top Sodium Potassium Chloride Carbon Dioxide Anion Gap BUN Creatinine Estim Creat Clear Calc Estimated GFR Random Glucose Calcium Imaging Radiologist's impression: Impressions Chest CTA 07/12/23 20:51 IMPRESSION: 1. Extensive bilateral pulmonary emboli with evidence of elevated right-sided heart pressure. 2. VTE: positive. 3. Multiple small pulmonary nodules are seen in the upper lobes measuring about 3 mm in size (for example right upper lobe 6:77 and 80). According to the UPDATED 2017 Fleischner Society recommendations, the advised follow-up imaging for nodules <6mm in the upper lobes is not necessarily required in low-risk patients. In high-risk patients with a nodule in the upper lobe and/or demonstrating suspicious morphology, an optional CT follow-up at 12 months may be obtained. If stable at 12 months, no further follow-up is recommended. Assessment and Plan (1) Bilateral pulmonary embolism: Status: Acute (2) Atrial fibrillation with RVR: Status: Acute Plan Pleasant 82-year-old female was known history of permanent atrial fibrillation and has been well rate controlled with digoxin and metoprolol previously presenting with acute pulmonary embolism and AFib with RVR. AFib with RVR is explained by acute PE. Most common arrhythmia with acute acute pulmonary embolism is sinus tachycardia, only difference is that she is in atrial fibrillation all the time and now has AFib with RVR due to PE. In any case this is quite usual. She is rate controlled with digoxin and metoprolol currently. If heart rates are below 120 I think we do not need to do anything different currently. She was missing rivaroxaban so I think this is not a failure of rivaroxaban but Hematology can wait and if there are concerns. She does have poor appetite and weight loss which is unintentional. I think this is quite concerning symptom in her specially with bilateral pulmonary emboli. This should be worked up further. Thank you for allowing me to participate in the care of your patient. Please feel free to contact me if you have any questions. Procedures Date of Service Date of Service: 07/13/23
[2023-07-13] MEDS: Memantine HCl 5 MG TABLET PO (21:42)
[2023-07-13] MEDS: Triamcinolone Acet 0.1 % Cream 15 GM TUBE 1 APPL TOPICAL (21:56)
--- NOTE | 2023-07-13 23:34 | MHC.EDTECH ---
Patient ambulated to bathroom with a steady gait,hourly rounds and vitals completed,call rush in reach
[2023-07-14] VITALS (10 sets, daily range): BP systolic 123–152; BP diastolic 67–88; PULSE 82–110; RESP 16–20; TEMP 36.7–36.9; O2SAT 94–99; BMI 32.8
--- NOTE | 2023-07-14 | ECG_ITS ---
Test Reason : rvr Blood Pressure : / mmHG Vent. Rate : 099 BPM Atrial Rate : 000 BPM P-R Int : 000 ms QRS Dur : 076 ms QT Int : 346 ms P-R-T Axes : 000 034 049 degrees QTc Int : 444 ms Atrial fibrillation Abnormal ECG When compared with ECG of 12-JUL-2023 12:45, Criteria for Septal infarct are no longer Present Minimal criteria for Inferior infarct are no longer Present Nonspecific T wave abnormality no longer evident in Inferior leads Referred By: Radha Bergeron Electronically Signed By:DULCE IRAHETA MD
[2023-07-14 01:31] LABS: PTT Heparin Drip 58.8 SEC (53-77.9)
[2023-07-14] MEDS: Heparin Sodium,Porcine/1/2NS 25,000 UNIT/250 ML IV.SOLN 8.98 UNIT IVCONT (03:00)
[2023-07-14] MEDS: Acetaminophen 325 MG TABLET 650 MG PO (03:05)
[2023-07-14] MEDS: Melatonin 3 MG TABLET 6 MG PO (03:06)
[2023-07-14] MEDS: Calcium Carbonate 750 MG TAB.CHEW PO (03:28)
[2023-07-14] MEDS: Omeprazole 40 MG CAPSULE.DR PO (05:59)
[2023-07-14 06:49] LABS: Hematocrit 33.9 % (37.0-47.0); Hemoglobin 10.8 g/dl (12.0-16.0); Mean Corpuscular HGB Conc 31.9 g/dl (31.0-35.0); Mean Corpuscular Hemoglobin 26.8 pg (27.0-33.0); Mean Corpuscular Volume 84.1 fL (80.0-98.0); Mean Platelet Volume 10.4 fL (9.4-12.3); Platelet Count 296 X10*3/uL (160-400); Red Blood Count 4.03 X10*6/uL (4.20-5.50); Red Cell Distribution Width 16.3 % (11.0-16.0); White Blood Count 11.4 X10*3/uL (4.8-10.8)
[2023-07-14 06:55] LABS: Prothrombin Time 12.1 SEC (11.1-13.3)
[2023-07-14 06:58] LABS: PTT Heparin Drip 61.4 SEC (53-77.9)
[2023-07-14] MEDS: Fluticasone/Vilanterol 100/25 BLST.W.DEV 1 PUFF INHALE (08:09)
[2023-07-14] MEDS: Albuterol/Iprat 2.5/0.5MG 3 ML AMPUL.NEB INHALE ×4 (08:09→19:37)
[2023-07-14] MEDS: Metoprolol Succinate ER 50 MG TAB.ER.24H PO (08:14)
[2023-07-14] MEDS: Atorvastatin Calcium 80 MG TABLET PO (08:14)
[2023-07-14] MEDS: 0.9 % Sodium Chloride Flush 3 ML SYRINGE IVFLUSH ×2 (08:14→20:48)
[2023-07-14] MEDS: methylPREDNISolone Sod Succ 40 MG/ML VIAL IVPUSH (08:15)
[2023-07-14] MEDS: Memantine HCl 5 MG TABLET PO ×2 (08:15→20:46)
[2023-07-14] MEDS: Escitalopram Oxalate 10 MG TABLET PO (08:15)
--- NOTE | 2023-07-14 10:24 | MHC.CM.PN ---
EMR REVIEWED, PER HOSPITALIST HEMATOLOGY PENDING AND ANTIC PT MAY BE MEDICALLY CLEARED FOR DC HOME LATER TODAY W/FRIEND [facility] FOR TRANSPORT.
--- NOTE | 2023-07-14 11:11 | PM.DS ---
DS: Providers Provider Date of Service: 07/17/23 Date of admission: 07/13/23 00:06 Primary care physician: Kallie Guerrero MD Consults: 07/13/23 09:51 Consult to Cardiology Routine Consulting Provider: [facility] Reason for consultation: afib rvr 07/14/23 07:24 Consult to Hematology / Oncology Routine Consulting Provider: Blanche Rosas Reason for consultation: PE DS: Diagnosis Discharge Diagnosis (1) Bilateral pulmonary embolism: Status: Acute (2) Atrial fibrillation with RVR: Status: Acute DS: Summary Hospital Course Hospital Course: History and physical as per admitting provider. This is a 82-year-old female with pertinent history of moderate persistent asthma not on home oxygen, lymphedema, paroxysmal atrial fibrillation not compliant with Xarelto, mood disorder, gastroesophageal reflux disease, mixed hyperlipidemia who presents to the emergency department for evaluation of dyspnea. Patient states it started 1 day prior to presentation. It has been constant, progressive and got worse on the day of presentation. It is worse with ambulation. Denies chest discomfort. Also has been having non productive cough and wheezing. Patient admits that she misses a few doses of her home prescription medications and has missed multiple doses of Xarelto in the past. No fever, chills, palpitations, abdominal pain, changes in urinary or bowel habits. In the emergency department, patient was found to be in AFib with RVR and given IV Lopressor 5 mg push. CTA with bilateral PE with heart strain. Troponin was found to be elevated. Patient requiring supplemental oxygen, 3 L in the ER. 82-year-old woman treated for acute hypoxic respiratory failure secondary to acute submassive bilateral pulmonary embolus. She was started on IV heparin in the ER. Apparently she had been noncompliant with her Xarelto at home for which he takes for AFib. Echocardiogram showed EF of 65-70% with no evidence of regional wall motion abnormalities. She was transitioned to Xarelto 15 mg BID and will continue this for total 20 days (august 02) then 20 mg daily. She was treated with IV Lopressor in the ER for AFib RVR. She was seen evaluated by Cardiology who thought that her tachycardia/atrial fibrillation RVR was not surprising as she does have bilateral pulmonary embolus. Lungs are heart rate is below 120s continue her home doses of medications. However she remained having episodes of elevated heart rate so her metoprolol was increased to 50mg BID with a good response Mental health. Continue home medication GERD. Continue PPI Hyperlipidemia. Continue statin Time Attestation Discharge Coordination Time (in mins): 35 Quality: Safe Use of Opioids Does Pt have an Active Cancer Diagnosis on the Problem List?: No Quality: Stroke Does the patient have a stroke diagnosis?: No Physical Exam Vital Signs: Vital Signs: Last Vital Signs Temp 98.0 F 07/14/23 07:50 Pulse 103 H 07/14/23 08:14 Resp 16 07/14/23 08:09 BP 152/86 H 07/14/23 08:14 Pulse Ox 95 07/14/23 07:50 O2 Del Method Room Air 07/14/23 07:50 O2 Flow Rate 2 07/13/23 10:18 BMI result Body Mass Index 32.8 Appearing in no acute distress head is normocephalic atraumatic eyes pupils are PERRLA sclera is anicteric mouth throat mucous membranes are intact and moist neck is supple no lymphadenopathy, no JVD noted lung sounds are clear to auscultation heart IRIR positive bowel sounds, abdomen is soft, nontender neuro patient is alert x3, no focal deficits DS: Data Data Completed and Pending Completed studies during hospitalization [Text1]: Procedures Control Bleeding in Gastrointestinal Tract, Via Natural or Artificial Opening Endoscopic (09/08/21) Introduction of Other Therapeutic Substance into Upper GI, Via Natural or Artificial Opening Endoscopic (09/08/21) Transfusion of Nonautologous Frozen Plasma into Peripheral Vein, Percutaneous Approach (09/08/21) Transfusion of Nonautologous Red Blood Cells into Peripheral Vein, Percutaneous Approach (09/08/21) Labs on day of discharge: Laboratory Results - last 24 hr 07/13/23 07/13/23 07/14/23 11:39 18:52 01:15 WBC RBC Hgb Hct MCV MCH MCHC RDW Plt Count MPV Absolute Nucleated RBC Nucleated RBC % (auto) PT INR aPTT Heparin Protocol 52.8 L D 57.5 58.8 07/14/23 06:32 WBC 11.4 H RBC 4.03 L Hgb 10.8 L Hct 33.9 L MCV 84.1 MCH 26.8 L MCHC 31.9 RDW 16.3 H Plt Count 296 MPV 10.4 Absolute Nucleated RBC 0.000 Nucleated RBC % (auto) 0.0 PT 12.1 INR 1.0 aPTT Heparin Protocol 61.4 Discharge Plan Discharge Anticipated Discharge Date/Time: 07/17/23 10:14 Patient Disposition: Home, Self-Care Discharge Diagnosis: Bilateral pulmonary embolism Referrals: Kallie Guerrero MD [Primary Care Provider] - 1 Week Discharge Medications: New metoprolol succinate 50 mg Tablet Extended Release 24 Hr 50 mg PO BID Qty: 60 0RF Protocol: Hold for SBP/HR < HOLD for SBP < : 90 HOLD for HR < : 60 Xarelto 15 mg Tablet 15 mg PO BIDWM Qty: 22 0RF Rx Instructions: Take 15 mg twice daily until August 02 then 20mg daily Continued rosuvastatin 20 mg tablet 20 mg PO DAILY Qty: 90 3RF fluticasone propionate 50 mcg/actuation spray,suspension 1 spray intranasal DAILY 30 Days Qty: 16 2RF citalopram 20 mg tablet 20 mg PO DAILY 90 Days Qty: 90 1RF fluticasone propion-salmeterol [Advair HFA] 115-21 mcg/actuation HFA aerosol inhaler 2 puff inhalation Q12H Qty: 12 3RF omeprazole 40 mg capsule,delayed release(DR/EC) 40 mg PO DAILY Qty: 30 0RF digoxin 125 mcg (0.125 mg) tablet 125 mcg PO MOWEFR memantine 5 mg Tablet 5 mg PO BID Discontinued Xarelto 20 mg tablet 20 mg PO DAILY Qty: 90 3RF Hold Instructions: Resume on 09/25/21. restart on September 25 metoprolol succinate 50 mg tablet extended release 24 hr 50 mg PO DAILY 90 Days Qty: 90 1RF Discharge Orders: Discharge Order (Routine); Ordered 07/17/23 Ordered By: Radha Bergeron Diet: Advance to usual diet Activity on Discharge: As tolerated Stand Alone Forms: Patient Portal Discharge page Print Language: Wolof Care Plan Goals: Your Xarelto dose has changed to 15 mg twice daily for 20 days (August 02) then 20 mg daily Follow-up with your primary care provider as needed Take all medications as prescribed Health Concerns: Bilateral pulmonary embolism Atrial fibrillation with rapid ventricular response Plan of Treatment: Follow-up with primary care provider as needed Take all medications as prescribed Assessment: Treatment for bilateral pulmonary embolism and atrial fibrillation with rapid ventricular response Xarelto dose changed follow pharmacy directions Metoprolol increased to 50 mg twice daily
[2023-07-14] MEDS: Fluticasone Propionate Nasal 16 GM SPRAY 1 SPRAY NOSTRIL-B (11:40)
[2023-07-14] MEDS: Triamcinolone Acet 0.1 % Cream 15 GM TUBE 1 APPL TOPICAL (11:40)
--- NOTE | 2023-07-14 13:10 | HO.PM.IMPN ---
Subjective Subjective Date of Service: 07/14/23 Review of Systems Follow-up bilateral PE No shortness a breath or chest pain Physical Exam Vital Signs: Vital Signs: Last Vital Signs Temp 98.3 F 07/14/23 11:58 Pulse 97 07/14/23 11:58 Resp 18 07/14/23 11:58 BP 138/88 07/14/23 11:58 Pulse Ox 99 07/14/23 11:58 O2 Del Method Room Air 07/14/23 11:58 O2 Flow Rate 2 07/13/23 10:18 BMI result Body Mass Index 32.8 Appearing in no acute distress lung sounds are clear to auscultation heart irregularly irregular positive bowel sounds, abdomen is soft, nontender neuro patient is alert x3, no focal deficits Objective Data Active Medications Acetaminophen (Acetaminophen 325 Mg Tablet) 650 mg PO Q6H PRN PRN Reason: Pain, Mild (Pain Scale 1-3) Last Admin: 07/14/23 03:05 Dose: 650 mg Documented By: ARMAND Albuterol/Ipratropium (Albuterol/Iprat 2.5/0.5mg 3 Ml Ampul.Neb) 3 ml INHALE RQ4H WHILE AWAKE [facility] Last Admin: 07/14/23 11:47 Dose: 3 ml Documented By: JEIMY Albuterol/Ipratropium (Albuterol/Iprat 2.5/0.5mg 3 Ml Ampul.Neb) 3 ml INHALE Q4H PRN PRN Reason: Wheezing Atorvastatin Calcium (Atorvastatin Calcium 80 Mg Tablet) 80 mg PO DAILY [facility] Last Admin: 07/14/23 08:14 Dose: 80 mg Documented By: DAVID Calcium Carbonate (Calcium Carbonate 750 Mg Tab.Chew) 750 mg PO Q4H PRN PRN Reason: Indigestion Last Admin: 07/14/23 03:28 Dose: 750 mg Documented By: ARMAND Digoxin (Digoxin 0.125 Mg Tablet) 0.125 mg PO MOWEFR [facility] Escitalopram Oxalate (Escitalopram Oxalate 10 Mg Tablet) 10 mg PO DAILY [facility] Last Admin: 07/14/23 08:15 Dose: 10 mg Documented By: DAVID Fluticasone Propionate (Fluticasone Propionate Nasal 16 Gm [place]) 1 spray NOSTRIL-B DAILY [facility] Last Admin: 07/14/23 11:40 Dose: 1 spray Documented By: DAVID Fluticasone/Vilanterol (Fluticasone/Vilanterol 100/25 Blst.W.Dev) 1 puff INHALE RDAILY [facility] Last Admin: 07/14/23 08:09 Dose: 1 puff Documented By: HANSEL Heparin Sodium (Porcine) (Heparin Sodium,Porcine 5,000 Unit/Ml Vial) 3,600 unit IVPUSH PROTOCOL BOLUS PRN; Protocol PRN Reason: 40 unit/kg - Heparin Protocol Heparin Sodium (Porcine) (Heparin Sodium,Porcine 5,000 Unit/Ml Vial) 7,200 unit IVPUSH PROTOCOL BOLUS PRN; Protocol PRN Reason: 80 unit/kg - Heparin Protocol Heparin Sodium/Sodium Chloride (Heparin Sodium,Porcine/1/2ns) 25,000 unit in 250 mls @ 0 mls/hr IVCONT .Q0M [facility]; Protocol Last Titration: 07/14/23 10:18 Dose: 10 units/kg/hr, 8.98 mls/hr Documented By: DAVID Co-signed By: WAYLON Melatonin (Melatonin 3 Mg Tablet) 6 mg PO BEDTIME PRN PRN Reason: Insomnia Last Admin: 07/14/23 03:06 Dose: 3 mg Documented By: ARMAND Memantine (Memantine Hcl 5 Mg Tablet) 5 mg PO BID [facility] Last Admin: 07/14/23 08:15 Dose: 5 mg Documented By: DAVID Methylprednisolone Sodium Succinate (Methylprednisolone Sod Succ 40 Mg/Ml Vial) 40 mg IVPUSH Q12H [facility] Last Admin: 07/14/23 08:15 Dose: 40 mg Documented By: DAVID Metoprolol Succinate (Metoprolol Succinate Er 50 Mg Tab.Er.24h) 50 mg PO DAILY [facility]; Protocol Last Admin: 07/14/23 08:14 Dose: 50 mg Documented By: DAVID Omeprazole (Omeprazole 40 Mg Capsule.Dr) 40 mg PO DAILY@0600 [facility] Last Admin: 07/14/23 05:59 Dose: 40 mg Documented By: ARMAND Ondansetron HCl (Ondansetron Hcl 4 Mg/2 Ml Vial) 4 mg IVPUSH Q8H PRN PRN Reason: Nausea and Vomiting Sodium Chloride (0.9 % Sodium Chloride Flush 3 Ml Syringe) 3 ml IVFLUSH QSHIFT [facility] Last Admin: 07/14/23 08:14 Dose: 3 ml Documented By: DAVID Triamcinolone Acetonide (Triamcinolone Acet 0.1 % Cream 15 Gm Tube) 1 appl TOPICAL BID [facility]; Protocol Last Admin: 07/14/23 11:40 Dose: 1 appl Documented By: DAVID Labs 07/14/23 06:32 07/13/23 05:10 Labs: Laboratory Results - last 24 hr 07/13/23 07/14/23 07/14/23 18:52 01:15 06:32 MCV 84.1 MCH 26.8 L MCHC 31.9 RDW 16.3 H Plt Count 296 MPV 10.4 Absolute Nucleated RBC 0.000 Nucleated RBC % (auto) 0.0 PT 12.1 INR 1.0 aPTT Heparin Protocol 57.5 58.8 61.4 Assessment and Plan (1) Bilateral pulmonary embolism: Status: Acute Plan This is a 82-year-old female with pertinent history of moderate persistent asthma not on home oxygen, lymphedema, paroxysmal atrial fibrillation not compliant with Xarelto, mood disorder, gastroesophageal reflux disease, mixed hyperlipidemia who presents to the emergency department for evaluation of dyspnea. Acute hypoxic respiratory failure due to acute submassive bilateral PE supplemental oxygen. patient non-compliant with xarelto at home stop IV heparin at 4pm, start xarelto 15 mg at pm, continue 15mg BID for 20 days then 20 mg daily. echocardiogram with EF of 65-70% with mild tricuspid valve regurgitation with no evidence of regional wall motion abnormalities hematology consultation pending AFib with RVR s/p IV lopresser in ED cardiology consultation> continue treatment with digoxin and metoprolol, expect some tachycardia with bilateral PEs monitor hr Acute exacerbation of moderate persistent asthma in the setting of above. Resolved IV steroid changed to po scheduled and p.r.n. DuoNebs. Continue home inhaler Mood disorder Continue home mood stabilizers Gastroesophageal reflux disease On PPI Mixed hyperlipidemia On statin DVT prophylaxis: Heparin Attending Dr. Urena Full code Continue hospital stay for IV heparin, supplemental oxygen, close monitoring of heart rate and respiratory status (as above), which is not possible in a lesser acute setting. Quality Stroke Does the patient have a stroke diagnosis?: No VTE Prior VTE?: No VTE Risk Level:: Medical - moderate - high VTE Device Contraindication: Treatment Not Indicated VTE Drug Contraindication: N/A - Med Ordered
--- NOTE | 2023-07-14 15:03 | PM.PNCARD ---
Subjective Subjective Date of Service: 07/14/23 Interval history: Seen examined bedside. Feeling good. Mostly rate controlled atrial fibrillation with some tachycardia when she ambulates. Physical Exam Vital Signs: Last Vital Signs Temp 98.3 F 07/14/23 11:58 Pulse 97 07/14/23 11:58 Resp 18 07/14/23 11:58 BP 138/88 07/14/23 11:58 Pulse Ox 99 07/14/23 11:58 O2 Del Method Room Air 07/14/23 11:58 O2 Flow Rate 2 07/13/23 10:18 BMI result Body Mass Index 32.8 GENERAL APPEARANCE: in no acute distress, pleasant. NECK: no carotid bruit, no jugular venous distention. SKIN: no suspicious lesions, warm and dry. HEART: no murmurs, irregular rate and rhythm. LUNGS: clear to auscultation bilaterally. ABDOMEN: soft, nontender. EXTREMITIES: no edema. PERIPHERAL PULSES: equal. NEUROLOGIC: No gross deficits, AAO X 3 Objective Labs and Meds 07/14/23 06:32 07/13/23 05:10 Lab results: Laboratory Results - last 24 hr 07/13/23 07/14/23 07/14/23 18:52 01:15 06:32 WBC 11.4 H RBC 4.03 L Hgb 10.8 L Hct 33.9 L MCV 84.1 MCH 26.8 L MCHC 31.9 RDW 16.3 H Plt Count 296 MPV 10.4 Absolute Nucleated RBC 0.000 Nucleated RBC % (auto) 0.0 PT 12.1 INR 1.0 aPTT Heparin Protocol 57.5 58.8 61.4 Progress Note: A&P Assessment and plan (1) Bilateral pulmonary embolism: Status: Acute (2) Atrial fibrillation with RVR: Status: Acute Plan Pleasant 82 year female with permanent atrial fibrillation who had bilateral pulmonary emboli and AFib with RVR. On heparin drip currently. Was missing Xarelto which potentially played a role in thromboembolism and this is not failure of Xarelto in particular. Continue Toprol-XL and digoxin Wednesday. She can be changed to Xarelto-PE dosing. Poor appetite-need further workup because of thromboembolism now. Thank you for allowing me to participate in the care of your patient. Please feel free to contact me if you have any questions. Time Spent With Patient Time: Total time managing care of this patient today ____ minutes. Progress Note: Quality Stroke Does the patient have a stroke diagnosis?: No Procedures Date of Service Date of Service: 07/14/23
[2023-07-14] MEDS: Rivaroxaban 15 MG TABLET PO (18:40)
[2023-07-14] MEDS: Digoxin 0.125 MG TABLET PO (20:45)
[2023-07-15] VITALS (11 sets, daily range): BP systolic 127–160; BP diastolic 74–94; PULSE 87–117; RESP 16–18; TEMP 36.4–37.2; O2SAT 92–98
[2023-07-15] MEDS: Omeprazole 40 MG CAPSULE.DR PO (05:59)
[2023-07-15] MEDS: Metoprolol Succinate ER 50 MG TAB.ER.24H PO ×2 (08:13→20:25)
[2023-07-15] MEDS: Fluticasone Propionate Nasal 16 GM SPRAY 1 SPRAY NOSTRIL-B (08:13)
[2023-07-15] MEDS: predniSONE 20 MG TABLET 40 MG PO (08:13)
[2023-07-15] MEDS: Atorvastatin Calcium 80 MG TABLET PO (08:13)
[2023-07-15] MEDS: Rivaroxaban 15 MG TABLET PO ×2 (08:13→15:55)
[2023-07-15] MEDS: Memantine HCl 5 MG TABLET PO ×2 (08:13→20:24)
[2023-07-15] MEDS: Escitalopram Oxalate 10 MG TABLET PO (08:13)
[2023-07-15] MEDS: 0.9 % Sodium Chloride Flush 3 ML SYRINGE IVFLUSH ×3 (08:15→20:25)
[2023-07-15] MEDS: Triamcinolone Acet 0.1 % Cream 15 GM TUBE 1 APPL TOPICAL ×2 (08:24→20:25)
[2023-07-15] MEDS: Fluticasone/Vilanterol 100/25 BLST.W.DEV 1 PUFF INHALE (09:38)
[2023-07-15] MEDS: Albuterol/Iprat 2.5/0.5MG 3 ML AMPUL.NEB INHALE ×4 (09:38→19:43)
--- NOTE | 2023-07-15 13:51 | P.CNHO_ITS ---
Subjective - Subjective Chief complaint: Consult for: Bilateral PE. Patient: new to practice Consult date: 07/15/23 Requesting Physician: Radha Bergeron. Primary Care Provider: Kallie Guerrero MD Family Provider: Cesar, Medical Summary: DIAGNOSIS: BILATERAL PE. HPI - Consult Narrative Reason for consult: Consult for: PE. Narrative: Madelyn Da Silva is a pleasant 82 year old lady who presented to the emergency department for evaluation of dyspnea. She said it started 1 day prior to presentation. It has been constant, progressive and got worse on the day of presentation. Breathing gets worse with ambulation. Denies chest discomfort. She has had non productive cough and wheezing. She did miss a few doses of her home prescription medications and has missed multiple doses of Xarelto in the past. No fever, chills, palpitations, abdominal pain, changes in urinary or bowel habits. Here, she was found to be in AFib with RVR and given IV Lopressor 5 mg push. CTA with bilateral PE with heart strain. Troponin was found to be elevated. Patient requiring supplemental oxygen, 3 L. Review of Systems 2 Constitutional: Constitutional: Reports fatigue, Reports lethargy and Reports malaise Cardiovascular: Cardiovascular: Reports dyspnea on exertion Respiratory: Respiratory: Reports cough, Reports dyspnea on exertion and Reports wheezing Gastrointestinal: Gastrointestinal: Reports no additional gastrointestinal complaints Genitourinary: Genitourinary: Reports no additional female genitourinary complaints Musculoskeletal: Musculoskeletal: Reports no additional musculoskeletal complaints Endocrine: Endocrine: Reports fatigue Allergic/Immunologic: Allergic/Immunologic: Reports wheezing PMFSH Medical History: Moderate persistent asthma not on home oxygen, Lymphedema, paroxysmal atrial fibrillation not compliant with Xarelto, mood disorder, gastroesophageal reflux disease Acute GI bleeding Moderate persistent asthma mixed hyperlipidemia Family History: Father No problems noted. Mother Cerebral brain hemorrhage Surgical History: Status post surgical removal of malignant neoplasm of skin Social History: Household Members: None Housing: House Review of Systems - Constitutional Reports system reviewed and no additional complaints, except as documented - Eyes Reports system reviewed and no additional complaints, except as documented - ENT Reports system reviewed and no additional complaints, except as documented - Cardiovascular Reports system reviewed and no additional complaints, except as documented - Respiratory Reports no additional respiratory complaints - Gastrointestinal Reports system reviewed and no additional complaints, except as documented - Genitourinary Reports no additional female genitourinary complaints - Musculoskeletal Reports system reviewed and no additional complaints, except as documented - Integumentary/Breasts Skin/Breast: Reports no additional skin complaints - Neurologic Reports system reviewed and no additional complaints, except as documented - Psychiatric Reports system reviewed and no additional complaints, except as documented - Endocrine Reports no additional endocrine complaints - Hematologic/Lymphatic Reports system reviewed and no additional complaints, except as documented - Allergic/Immunologic Reports system reviewed and no additional complaints, except as documented Oncology Screenings - ECOG Performance Status ECOG Performance Status: 2 [facility] Medical History: Medical History (Last Reviewed 07/13/23 @ 00:28 by Olivier Christie MD) Acute GI bleeding Chronic a-fib Moderate persistent asthma Functional capacity: wheelchair bound Patient : No Family History: Family History (Last Reviewed 07/13/23 @ 00:28 by Olivier Christie MD) Father No problems noted. Mother Cerebral brain hemorrhage Surgical History: Surgical History (Last Reviewed 07/13/23 @ 00:28 by Olivier Christie MD) Status post surgical removal of malignant neoplasm of skin Social History: Social History (Last Reviewed 07/13/23 @ 00:28 by Olivier Christie MD) Living Situation History: Household Members: None Housing: House Do you presently have visiting nurse or other home services: No Tobacco History: Patient Tobacco Use Status: Never used Tobacco e-Cigarette/Vaping Use: Never Used Second Hand Smoke Exposure: Yes Advance Directives: Advance Directives Date on File: 09/15/21 Occupation Assessmet: service: No Current occupational status: retired Home Medications and Allergies Current Medications: Current Medications Acetaminophen (Acetaminophen 325 Mg Tablet) 650 mg PO Q6H PRN PRN Reason: Pain, Mild (Pain Scale 1-3) Last Admin: 07/14/23 03:05 Dose: 650 mg Albuterol/Ipratropium (Albuterol/Iprat 2.5/0.5mg 3 Ml Ampul.Neb) 3 ml INHALE RQ4H WHILE AWAKE JOR[facility] Last Admin: 07/15/23 11:50 Dose: 3 ml Albuterol/Ipratropium (Albuterol/Iprat 2.5/0.5mg 3 Ml Ampul.Neb) 3 ml INHALE Q4H PRN PRN Reason: Wheezing Atorvastatin Calcium (Atorvastatin Calcium 80 Mg Tablet) 80 mg PO DAILY [facility] Last Admin: 07/15/23 08:13 Dose: 80 mg Calcium Carbonate (Calcium Carbonate 750 Mg Tab.Chew) 750 mg PO Q4H PRN PRN Reason: Indigestion Last Admin: 07/14/23 03:28 Dose: 750 mg Digoxin (Digoxin 0.125 Mg Tablet) 0.125 mg PO MOWEFR [facility] Last Admin: 07/14/23 20:45 Dose: 0.125 mg Escitalopram Oxalate (Escitalopram Oxalate 10 Mg Tablet) 10 mg PO DAILY [facility] Last Admin: 07/15/23 08:13 Dose: 10 mg Fluticasone Propionate (Fluticasone Propionate Nasal 16 Gm [place]) 1 spray NOSTRIL-B DAILY [facility] Last Admin: 07/15/23 08:13 Dose: 1 spray Fluticasone/Vilanterol (Fluticasone/Vilanterol 100/25 Blst.W.Dev) 1 puff INHALE RDAILY [facility] Last Admin: 07/15/23 09:38 Dose: 1 puff Heparin Sodium (Porcine) (Heparin Sodium,Porcine 5,000 Unit/Ml Vial) 3,600 unit IVPUSH PROTOCOL BOLUS PRN; Protocol PRN Reason: 40 unit/kg - Heparin Protocol Heparin Sodium (Porcine) (Heparin Sodium,Porcine 5,000 Unit/Ml Vial) 7,200 unit IVPUSH PROTOCOL BOLUS PRN; Protocol PRN Reason: 80 unit/kg - Heparin Protocol Melatonin (Melatonin 3 Mg Tablet) 6 mg PO BEDTIME PRN PRN Reason: Insomnia Last Admin: 07/14/23 03:06 Dose: 3 mg Memantine (Memantine Hcl 5 Mg Tablet) 5 mg PO BID [facility] Last Admin: 07/15/23 08:13 Dose: 5 mg Metoprolol Succinate (Metoprolol Succinate Er 50 Mg Tab.Er.24h) 50 mg PO DAILY [facility]; Protocol Last Admin: 07/15/23 08:13 Dose: 50 mg Omeprazole (Omeprazole 40 Mg Capsule.Dr) 40 mg PO DAILY@0600 [facility] Last Admin: 07/15/23 05:59 Dose: 40 mg Ondansetron HCl (Ondansetron Hcl 4 Mg/2 Ml Vial) 4 mg IVPUSH Q8H PRN PRN Reason: Nausea and Vomiting Prednisone (Prednisone 20 Mg Tablet) 40 mg PO DAILY [facility] Last Admin: 07/15/23 08:13 Dose: 40 mg Rivaroxaban (Rivaroxaban 15 Mg Tablet) 15 mg PO BIDWM [facility] Last Admin: 07/15/23 08:13 Dose: 15 mg Sodium Chloride (0.9 % Sodium Chloride Flush 3 Ml Syringe) 3 ml IVFLUSH QSHIFT [facility] Last Admin: 07/15/23 08:15 Dose: 3 ml Triamcinolone Acetonide (Triamcinolone Acet 0.1 % Cream 15 Gm Tube) 1 appl TOPICAL BID [facility]; Protocol Last Admin: 07/15/23 08:24 Dose: 1 appl Home Medications ?Medication ?Instructions ?Recorded ?Confirmed ?Type digoxin 125 mcg (0.125 mg) tablet 125 mcg PO MOWEFR 07/13/23 07/13/23 History memantine 5 mg tablet 5 mg PO BID 07/13/23 07/13/23 History Allergies Allergy/AdvReac Type Severity Reaction Status Date / Time doxycycline Allergy Mild Rash Verified 07/12/23 12:50 lorazepam Allergy Unknown unknown Verified 03/24/23 14:39 pantoprazole Allergy Unknown NAUSEA Verified 03/24/23 14:39 amoxicillin [AMOXICILLIN] AdvReac Intermediate NAUSEA/VOMI Verified 03/24/23 14:39 TING Physical Exam Vital signs: Vital Signs Temp 98.0 F 07/15/23 11:16 Pulse 117 H 07/15/23 11:50 Resp 18 07/15/23 11:50 BP 127/74 07/15/23 11:16 Pulse Ox 96 07/15/23 11:16 O2 Del Method Room Air 07/15/23 11:16 O2 Flow Rate 2 07/13/23 10:18 Intake & Output 07/14/23 07/15/23 07/15/23 18:59 06:59 18:59 Intake Total 842.427 / 842.427 0 / 842.427 Balance 842.427 / 842.427 0 / 842.427 Intake: Intake, Oral Amount 720 / 720 Intake, Oral Supplement Amount 0 / 0 Intake, IV Amount 122.427 / 122.427 Heparin Sodium,Porcine/1/2NS 25 122.427 / 122.427 ,000 unit In 250 ml @ Per Protocol IVCONT .Q0M [facility] Rx#: [id number] Other: Breakfast % Eaten 100% Lunch % Eaten 100% Dinner % Eaten 0% Number of Unmeasured Voids 3 2 Urine Bathroom Last Bowel Movement 07/13/23 Weight 95.1 kg - Constitutional Present: mild distress - Routine HEENT Exam Head: Present: normal inspection, normocephalic Eye: Present: normal appearance ENT: Present: mucous membranes moist - Routine Neck Exam Present: supple - Routine Respiratory Exam Present: CTAB - Routine Cardiovascular Exam Cardiovascular: Present: RRR, S1, S2 - Routine Abdominal Exam Present: soft, nontender - Routine Skin Exam Present: intact, normal turgor - Routine Neurological Exam Present: alert, oriented X3 - Detailed Neurological Exam: Coma Scale Eye Opening: Spontaneous (4) Verbal Response: Oriented (5) Motor Response: Obeys commands (6) [place] Coma Scale Total: 15 - Routine Psychiatric Exam Present: normal affect Hem/Onc Consult Result - Labs CBC & Chem 7: 07/16/23 08:55 07/13/23 05:10 Assessment and Plan Patient Active problem list reviewed?: Yes (1) Bilateral pulmonary embolism Status: Acute Assessment and plan: This is a 82-year-old female with a history of moderate asthma not on home oxygen, lymphedema, mood disorder, gastroesophageal reflux disease, mixed hyperlipidemia and paroxysmal atrial fibrillation Unfortunately patient has not been compliant with Xarelto. She presented with shortness of breath. Noted to be in acute hypoxic respiratory failure due to acute submassive bilateral PE. Echocardiogram with EF of 65-70% with mild tricuspid valve regurgitation with no evidence of regional wall motion abnormalities She was initially treated with IV heparin. Has been started on Xarelto 15 mg po BID. PLAN: To continue on the starter pack for 21 days and then be switched over to 20 mg daily. She will need to be on it long-term. She is being continued on supplemental oxygen. Thank you for the consult, I will follow along with you, Thanks, CC: Cesar. - Time Spent With Patient Time Spent with Patient (in minutes): 30
--- NOTE | 2023-07-15 14:40 | HO.PM.IMPN ---
Subjective Subjective Date of Service: 07/15/23 Interval History: Seen and examined this morning Follow-up for bilateral PE Not requiring oxygen, has been ambulating in room Breathing improving Review of Systems Review of Systems: Yes all other systems are reviewed and are negative Constitutional Constitutional: Denies fever(s) Cardiovascular Cardiovascular: Denies chest pain Respiratory Respiratory: Denies cough Gastrointestinal Gastrointestinal: Denies abdominal pain Physical Exam Vital Signs: Vital Signs: Last Vital Signs Temp 98.0 F 07/15/23 11:16 Pulse 117 H 07/15/23 11:50 Resp 18 07/15/23 11:50 BP 127/74 07/15/23 11:16 Pulse Ox 96 07/15/23 11:16 O2 Del Method Room Air 07/15/23 11:16 O2 Flow Rate 2 07/13/23 10:18 BMI result Body Mass Index 32.8 Const: General: cooperative, no acute distress, alert and awake Resp: Effort & Inspection: normal respiratory effort, able to speak in complete sentences, no respiratory distress and no use of accessory muscles Cardio: Rate: tachycardic GI: Inspection: No distended Palpation (GI): Soft to palpation Neuro: General: moves all extremities and CN's II-XI intact bilaterally Objective Data Active Medications Acetaminophen (Acetaminophen 325 Mg Tablet) 650 mg PO Q6H PRN PRN Reason: Pain, Mild (Pain Scale 1-3) Last Admin: 07/14/23 03:05 Dose: 650 mg Documented By: ARMAND Albuterol/Ipratropium (Albuterol/Iprat 2.5/0.5mg 3 Ml Ampul.Neb) 3 ml INHALE RQ4H WHILE AWAKE [facility] Last Admin: 07/15/23 11:50 Dose: 3 ml Documented By: SMITA Albuterol/Ipratropium (Albuterol/Iprat 2.5/0.5mg 3 Ml Ampul.Neb) 3 ml INHALE Q4H PRN PRN Reason: Wheezing Atorvastatin Calcium (Atorvastatin Calcium 80 Mg Tablet) 80 mg PO DAILY [facility] Last Admin: 07/15/23 08:13 Dose: 80 mg Documented By: SWAPNA Calcium Carbonate (Calcium Carbonate 750 Mg Tab.Chew) 750 mg PO Q4H PRN PRN Reason: Indigestion Last Admin: 07/14/23 03:28 Dose: 750 mg Documented By: ARMAND Digoxin (Digoxin 0.125 Mg Tablet) 0.125 mg PO MOWEFR [facility] Last Admin: 07/14/23 20:45 Dose: 0.125 mg Documented By: PRICE Comments: HR 91bpm Escitalopram Oxalate (Escitalopram Oxalate 10 Mg Tablet) 10 mg PO DAILY [facility] Last Admin: 07/15/23 08:13 Dose: 10 mg Documented By: SWAPNA Fluticasone Propionate (Fluticasone Propionate Nasal 16 Gm [place]) 1 spray NOSTRIL-B DAILY [facility] Last Admin: 07/15/23 08:13 Dose: 1 spray Documented By: SWAPNA Fluticasone/Vilanterol (Fluticasone/Vilanterol 100/25 Blst.W.Dev) 1 puff INHALE RDAILY [facility] Last Admin: 07/15/23 09:38 Dose: 1 puff Documented By: DEBBIE Heparin Sodium (Porcine) (Heparin Sodium,Porcine 5,000 Unit/Ml Vial) 3,600 unit IVPUSH PROTOCOL BOLUS PRN; Protocol PRN Reason: 40 unit/kg - Heparin Protocol Heparin Sodium (Porcine) (Heparin Sodium,Porcine 5,000 Unit/Ml Vial) 7,200 unit IVPUSH PROTOCOL BOLUS PRN; Protocol PRN Reason: 80 unit/kg - Heparin Protocol Melatonin (Melatonin 3 Mg Tablet) 6 mg PO BEDTIME PRN PRN Reason: Insomnia Last Admin: 07/14/23 03:06 Dose: 3 mg Documented By: ARMAND Memantine (Memantine Hcl 5 Mg Tablet) 5 mg PO BID [facility] Last Admin: 07/15/23 08:13 Dose: 5 mg Documented By: SWAPNA Metoprolol Succinate (Metoprolol Succinate Er 50 Mg Tab.Er.24h) 50 mg PO DAILY [facility]; Protocol Last Admin: 07/15/23 08:13 Dose: 50 mg Documented By: SWAPNA Omeprazole (Omeprazole 40 Mg Capsule.Dr) 40 mg PO DAILY@0600 [facility] Last Admin: 07/15/23 05:59 Dose: 40 mg Documented By: PRICE Ondansetron HCl (Ondansetron Hcl 4 Mg/2 Ml Vial) 4 mg IVPUSH Q8H PRN PRN Reason: Nausea and Vomiting Prednisone (Prednisone 20 Mg Tablet) 40 mg PO DAILY [facility] Last Admin: 07/15/23 08:13 Dose: 40 mg Documented By: SWAPNA Rivaroxaban (Rivaroxaban 15 Mg Tablet) 15 mg PO BIDWM [facility] Last Admin: 07/15/23 08:13 Dose: 15 mg Documented By: SWAPNA Sodium Chloride (0.9 % Sodium Chloride Flush 3 Ml Syringe) 3 ml IVFLUSH QSHIFT [facility] Last Admin: 07/15/23 08:15 Dose: 3 ml Documented By: SWAPNA Triamcinolone Acetonide (Triamcinolone Acet 0.1 % Cream 15 Gm Tube) 1 appl TOPICAL BID [facility]; Protocol Last Admin: 07/15/23 08:24 Dose: 1 appl Documented By: SWAPNA Labs 07/14/23 06:32 07/13/23 05:10 Labs: Laboratory Results - last 24 hr 07/15/23 06:21 Hold Purple Top SEE NOTE aPTT Heparin Protocol 32.0 L D Assessment and Plan (1) Bilateral pulmonary embolism: Status: Acute Plan This is a 82-year-old female with pertinent history of moderate persistent asthma not on home oxygen, lymphedema, paroxysmal atrial fibrillation not compliant with Xarelto, mood disorder, gastroesophageal reflux disease, mixed hyperlipidemia who presents to the emergency department for evaluation of dyspnea found to have bilateral PE. Acute hypoxic respiratory failure due to acute submassive bilateral PE No longer requiring supplemental oxygen s/p IV heparin, back on xarelto - 15 mg, plan 15mg BID for 20 days (until August 02) then 20 mg daily. echocardiogram with EF of 65-70% with mild tricuspid valve regurgitation with no evidence of regional wall motion abnormalities hematology consultation pending AFib with RVR s/p IV lopresser in ED cardiology consultation> continue treatment with digoxin and metoprolol, expect some tachycardia with bilateral PEs HR elevated with ambulation Acute exacerbation of moderate persistent asthma in the setting of above. Resolved IV steroid changed to po scheduled and p.r.n. DuoNebs. Continue home inhaler Mood disorder Continue home mood stabilizers Gastroesophageal reflux disease On PPI Mixed hyperlipidemia On statin DVT prophylaxis: stephanie Attending Dr. Urena Full code Continue hospital stay for IV heparin, supplemental oxygen, close monitoring of heart rate and respiratory status (as above), which is not possible in a lesser acute setting. Quality Stroke Does the patient have a stroke diagnosis?: No VTE Prior VTE?: No VTE Risk Level:: Medical - moderate - high VTE Device Contraindication: Treatment Not Indicated VTE Drug Contraindication: N/A - Med Ordered
--- NOTE | 2023-07-15 15:29 | MHC.CM.PN ---
emr reviewed, pt not medically cleared for dc d/t tacchycardia with activity, cm will cont to follow dc needs.
[2023-07-16] VITALS (11 sets, daily range): BP systolic 132–148; BP diastolic 69–91; PULSE 78–114; RESP 8–20; TEMP 36.1–37.2; O2SAT 92–99
[2023-07-16] MEDS: Omeprazole 40 MG CAPSULE.DR PO (05:46)
[2023-07-16] MEDS: Albuterol/Iprat 2.5/0.5MG 3 ML AMPUL.NEB INHALE ×4 (07:46→19:08)
[2023-07-16] MEDS: Fluticasone/Vilanterol 100/25 BLST.W.DEV 1 PUFF INHALE (07:46)
[2023-07-16] MEDS: Atorvastatin Calcium 80 MG TABLET PO (07:54)
[2023-07-16] MEDS: predniSONE 20 MG TABLET 40 MG PO (07:54)
[2023-07-16] MEDS: Metoprolol Succinate ER 50 MG TAB.ER.24H PO ×2 (07:54→20:56)
[2023-07-16] MEDS: Escitalopram Oxalate 10 MG TABLET PO (07:54)
[2023-07-16] MEDS: Memantine HCl 5 MG TABLET PO ×2 (07:54→20:54)
[2023-07-16] MEDS: Rivaroxaban 15 MG TABLET PO ×2 (07:54→17:45)
[2023-07-16] MEDS: 0.9 % Sodium Chloride Flush 3 ML SYRINGE IVFLUSH ×3 (07:55→21:00)
[2023-07-16] MEDS: Fluticasone Propionate Nasal 16 GM SPRAY 1 SPRAY NOSTRIL-B (07:55)
[2023-07-16] MEDS: Triamcinolone Acet 0.1 % Cream 15 GM TUBE 1 APPL TOPICAL ×2 (07:55→20:59)
[2023-07-16 09:41] LABS: Hematocrit 37.3 % (37.0-47.0); Hemoglobin 11.8 g/dl (12.0-16.0); Mean Corpuscular HGB Conc 31.6 g/dl (31.0-35.0); Mean Corpuscular Hemoglobin 27.4 pg (27.0-33.0); Mean Corpuscular Volume 86.7 fL (80.0-98.0); Mean Platelet Volume 10.4 fL (9.4-12.3); Platelet Count 322 X10*3/uL (160-400); Red Cell Distribution Width 16.6 % (11.0-16.0); White Blood Count 10.5 X10*3/uL (4.8-10.8)
--- NOTE | 2023-07-16 13:20 | HO.PM.IMPN ---
Subjective Subjective Date of Service: 07/16/23 Interval History: Seen and examined this morning Follow-up for bilateral PE No overnight events Continues to remain tachycardic with ambulation Review of Systems Review of Systems: Yes all other systems are reviewed and are negative Constitutional Constitutional: Denies fever(s) Physical Exam Vital Signs: Vital Signs: Last Vital Signs Temp 96.9 F 07/16/23 11:19 Pulse 107 H 07/16/23 11:49 Resp 20 07/16/23 11:49 BP 136/77 07/16/23 11:19 Pulse Ox 99 07/16/23 11:19 O2 Del Method Room Air 07/16/23 11:19 O2 Flow Rate 2 07/13/23 10:18 BMI result Body Mass Index 32.8 Const: General: cooperative, no acute distress, alert and awake Resp: Effort & Inspection: normal respiratory effort, able to speak in complete sentences, no respiratory distress and no use of accessory muscles Cardio: Rate: tachycardic GI: Inspection: No distended Palpation (GI): Soft to palpation Neuro: General: moves all extremities and CN's II-XI intact bilaterally Objective Data Active Medications Acetaminophen (Acetaminophen 325 Mg Tablet) 650 mg PO Q6H PRN PRN Reason: Pain, Mild (Pain Scale 1-3) Last Admin: 07/14/23 03:05 Dose: 650 mg Documented By: ARMAND Albuterol/Ipratropium (Albuterol/Iprat 2.5/0.5mg 3 Ml Ampul.Neb) 3 ml INHALE RQ4H WHILE AWAKE [facility] Last Admin: 07/16/23 11:47 Dose: 3 ml Documented By: MARLA Albuterol/Ipratropium (Albuterol/Iprat 2.5/0.5mg 3 Ml Ampul.Neb) 3 ml INHALE Q4H PRN PRN Reason: Wheezing Atorvastatin Calcium (Atorvastatin Calcium 80 Mg Tablet) 80 mg PO DAILY [facility] Last Admin: 07/16/23 07:54 Dose: 80 mg Documented By: SWAPNA Calcium Carbonate (Calcium Carbonate 750 Mg Tab.Chew) 750 mg PO Q4H PRN PRN Reason: Indigestion Last Admin: 07/14/23 03:28 Dose: 750 mg Documented By: ARMAND Digoxin (Digoxin 0.125 Mg Tablet) 0.125 mg PO MOWEFR [facility] Last Admin: 07/14/23 20:45 Dose: 0.125 mg Documented By: PRICE Comments: HR 91bpm Escitalopram Oxalate (Escitalopram Oxalate 10 Mg Tablet) 10 mg PO DAILY [facility] Last Admin: 07/16/23 07:54 Dose: 10 mg Documented By: SWAPNA Fluticasone Propionate (Fluticasone Propionate Nasal 16 Gm [place]) 1 spray NOSTRIL-B DAILY [facility] Last Admin: 07/16/23 07:55 Dose: 1 spray Documented By: SWAPNA Fluticasone/Vilanterol (Fluticasone/Vilanterol 100/25 Blst.W.Dev) 1 puff INHALE RDAILY [facility] Last Admin: 07/16/23 07:46 Dose: 1 puff Documented By: MARLA Melatonin (Melatonin 3 Mg Tablet) 6 mg PO BEDTIME PRN PRN Reason: Insomnia Last Admin: 07/14/23 03:06 Dose: 3 mg Documented By: ARMAND Memantine (Memantine Hcl 5 Mg Tablet) 5 mg PO BID [facility] Last Admin: 07/16/23 07:54 Dose: 5 mg Documented By: SWAPNA Metoprolol Succinate (Metoprolol Succinate Er 50 Mg Tab.Er.24h) 50 mg PO BID [facility]; Protocol Last Admin: 07/16/23 07:54 Dose: 50 mg Documented By: SWAPNA Omeprazole (Omeprazole 40 Mg Capsule.Dr) 40 mg PO DAILY@0600 [facility] Last Admin: 07/16/23 05:46 Dose: 40 mg Documented By: SEN Ondansetron HCl (Ondansetron Hcl 4 Mg/2 Ml Vial) 4 mg IVPUSH Q8H PRN PRN Reason: Nausea and Vomiting Prednisone (Prednisone 20 Mg Tablet) 40 mg PO DAILY [facility] Last Admin: 07/16/23 07:54 Dose: 40 mg Documented By: SWAPNA Rivaroxaban (Rivaroxaban 15 Mg Tablet) 15 mg PO BIDWM [facility] Last Admin: 07/16/23 07:54 Dose: 15 mg Documented By: SWAPNA Sodium Chloride (0.9 % Sodium Chloride Flush 3 Ml Syringe) 3 ml IVFLUSH QSHIFT [facility] Last Admin: 07/16/23 07:55 Dose: 3 ml Documented By: SWAPNA Triamcinolone Acetonide (Triamcinolone Acet 0.1 % Cream 15 Gm Tube) 1 appl TOPICAL BID JORGE; Protocol Last Admin: 07/16/23 07:55 Dose: 1 appl Documented By: SWAPNA Labs 07/16/23 08:55 07/13/23 05:10 Labs: Laboratory Results - last 24 hr 07/16/23 08:55 MCV 86.7 MCH 27.4 MCHC 31.6 RDW 16.6 H Plt Count 322 MPV 10.4 Absolute Nucleated RBC 0.000 Nucleated RBC % (auto) 0.0 Assessment and Plan (1) Bilateral pulmonary embolism: Status: Acute Plan This is a 82-year-old female with pertinent history of moderate persistent asthma not on home oxygen, lymphedema, paroxysmal atrial fibrillation not compliant with Xarelto, mood disorder, gastroesophageal reflux disease, mixed hyperlipidemia who presents to the emergency department for evaluation of dyspnea found to have bilateral PE. Acute hypoxic respiratory failure due to acute submassive bilateral PE No longer requiring supplemental oxygen s/p IV heparin, back on xarelto - 15 mg, plan 15mg BID for 20 days (until August 02) then 20 mg daily. echocardiogram with EF of 65-70% with mild tricuspid valve regurgitation with no evidence of regional wall motion abnormalities Seen by hematology -agrees with current AFib with RVR s/p IV lopresser in ED cardiology consultation> continue treatment with digoxin and metoprolol, expect some tachycardia with bilateral PEs Dose of Toprol-XL increased to b.i.d. heart rate has improved at rest but remains elevated with ambulation Acute exacerbation of moderate persistent asthma in the setting of above. Resolved IV steroid changed to po scheduled and p.r.n. DuoNebs. Continue home inhaler Mood disorder Continue home mood stabilizers Gastroesophageal reflux disease On PPI Mixed hyperlipidemia On statin DVT prophylaxis: stephanie Attending Dr. Urena Full code Continue hospital stay for close monitoring of heart rate and respiratory status (as above), which is not possible in a lesser acute setting. Quality Stroke Does the patient have a stroke diagnosis?: No VTE Prior VTE?: No VTE Risk Level:: Medical - moderate - high VTE Device Contraindication: Treatment Not Indicated VTE Drug Contraindication: N/A - Med Ordered
[2023-07-16] MEDS: Digoxin 0.125 MG TABLET PO (20:56)
[2023-07-17] VITALS (7 sets, daily range): BP systolic 108–155; BP diastolic 57–90; PULSE 71–95; RESP 18–20; TEMP 36.6–37.1; O2SAT 95–99
[2023-07-17] MEDS: Omeprazole 40 MG CAPSULE.DR PO (05:48)
[2023-07-17] MEDS: Rivaroxaban 15 MG TABLET PO (08:49)
[2023-07-17] MEDS: predniSONE 20 MG TABLET 40 MG PO (08:49)
[2023-07-17] MEDS: Metoprolol Succinate ER 50 MG TAB.ER.24H PO (08:49)
[2023-07-17] MEDS: Escitalopram Oxalate 10 MG TABLET PO (08:50)
[2023-07-17] MEDS: 0.9 % Sodium Chloride Flush 3 ML SYRINGE IVFLUSH (08:50)
[2023-07-17] MEDS: Atorvastatin Calcium 80 MG TABLET PO (08:50)
[2023-07-17] MEDS: Memantine HCl 5 MG TABLET PO (08:50)
[2023-07-17] MEDS: Fluticasone Propionate Nasal 16 GM SPRAY 1 SPRAY NOSTRIL-B (08:51)
[2023-07-17] MEDS: Triamcinolone Acet 0.1 % Cream 15 GM TUBE 1 APPL TOPICAL (08:52)
[2023-07-17] MEDS: Albuterol/Iprat 2.5/0.5MG 3 ML AMPUL.NEB INHALE ×2 (09:22→11:48)
[2023-07-17] MEDS: Fluticasone/Vilanterol 100/25 BLST.W.DEV 1 PUFF INHALE (09:22)
--- NOTE | 2023-07-17 10:56 | MHC.CM.PN ---
Patient has been medically cleared for dc to home today, self care. CM met with Patient at bedside and provided her with the original IMM and a copy has been placed on the chart.
--- NOTE | 2023-07-17 11:24 | PM.PNCARD ---
Subjective Subjective Date of Service: 07/17/23 Interval history: Seen and examined at bedside. Heart rates are better controlled. Physical Exam Vital Signs: Last Vital Signs Temp 98.4 F 07/17/23 07:22 Pulse 90 07/17/23 09:24 Resp 20 07/17/23 09:24 BP 126/83 07/17/23 08:49 Pulse Ox 97 07/17/23 07:22 O2 Del Method Room Air 07/17/23 07:22 O2 Flow Rate 2 07/13/23 10:18 BMI result Body Mass Index 32.8 GENERAL APPEARANCE: in no acute distress, pleasant. NECK: no carotid bruit, no jugular venous distention. SKIN: no suspicious lesions, warm and dry. HEART: no murmurs, irregular rate and rhythm. LUNGS: clear to auscultation bilaterally. ABDOMEN: soft, nontender. EXTREMITIES: no edema. PERIPHERAL PULSES: equal. NEUROLOGIC: No gross deficits, AAO X 3 Objective Labs and Meds 07/16/23 08:55 07/13/23 05:10 Progress Note: A&P Assessment and plan (1) Bilateral pulmonary embolism: Status: Acute (2) Atrial fibrillation with RVR: Status: Acute Plan 82-year-old female presenting with AFib with RVR and bilateral pulmonary emboli. She has chronic atrial fibrillation. Rate controlled at this point. Continue digoxin and metoprolol succinate. On Xarelto for anticoagulation. Can be discharged home. Thank you for allowing me to participate in the care of your patient. Please feel free to contact me if you have any questions. Time Spent With Patient Time: Total time managing care of this patient today ____ minutes. Progress Note: Quality Stroke Does the patient have a stroke diagnosis?: No Procedures Date of Service Date of Service: 07/17/23
== END 2023-07-17 16:00 | disposition home or self-care (01) | DRG 175 ==
LOC: HO.ED 13:18 → HO.EDOVER 07-13 00:49 → HO.IMC 07-14 00:23
PROVIDERS: Physician Assistant Medical; Admitting Provider Student in an Organized Health Care Education/Training Program; Emergency Provider Emergency Medicine; PCP Internal Medicine; Visit Provider Nurse Practitioner Acute Care
DX: I26.09 Other pulmonary embolism with acute cor pulmonale (principal); J96.01 Acute respiratory failure with hypoxia; J45.41 Moderate persistent asthma with (acute) exacerbation; I48.21 Permanent atrial fibrillation; F39 Unspecified mood [affective] disorder; K21.9 Gastro-esophageal reflux disease without esophagitis; E78.2 Mixed hyperlipidemia; Z79.01 Long term (current) use of anticoagulants; Z79.51 Long term (current) use of inhaled steroids; Z79.899 Other long term (current) drug therapy; Z91.148 Patient's other noncompliance with medication regimen for other reason
CPT/HCPCS: 36415; 71045; 71275; 80048; 80076; 82803; 83735; 83880; 84484; 85025; 85027; 85379; 85610; 85730; 93005; 93306; 94640; 99285; J1644; J2919; J3475; Q9957; Q9967

== ENCOUNTER → 2023-07-12 12:38 | Outpatient (BNV) | payer MEDICARE, SELFPAY | PROVIDERS: Admitting Provider Student in an Organized Health Care Education/Training Program; Emergency Provider Emergency Medicine; PCP Internal Medicine; Visit Provider Internal Medicine Cardiovascular Disease | DX: I48.91 Unspecified atrial fibrillation (principal) | CPT/HCPCS: 93010 ==

== ENCOUNTER → 2023-07-12 13:15 | Outpatient (BNV) | payer MEDICARE, SELFPAY | PROVIDERS: Emergency Provider Emergency Medicine; PCP Internal Medicine; Visit Provider Student in an Organized Health Care Education/Training Program | DX: I26.99 Other pulmonary embolism without acute cor pulmonale (principal) | CPT/HCPCS: 99223; 99232; 99239; 99499 ==

== ENCOUNTER 2023-07-13 00:06 | Outpatient (BNV) | payer MEDICARE, SELFPAY | END 2023-07-13 07:00 | PROVIDERS: Admitting Provider Student in an Organized Health Care Education/Training Program; Emergency Provider Emergency Medicine; PCP Internal Medicine; Visit Provider Internal Medicine | DX: I35.1 Nonrheumatic aortic (valve) insufficiency (principal); I36.1 Nonrheumatic tricuspid (valve) insufficiency | CPT/HCPCS: 93306 ==

== ENCOUNTER 2023-07-13 00:06 | Outpatient (BNV) | payer MEDICARE, SELFPAY | END 2023-07-14 11:14 | PROVIDERS: Admitting Provider Student in an Organized Health Care Education/Training Program; Emergency Provider Emergency Medicine; PCP Internal Medicine; Visit Provider Internal Medicine Cardiovascular Disease | DX: R94.31 Abnormal electrocardiogram [ECG] [EKG] (principal) | CPT/HCPCS: 93010 ==

== ENCOUNTER → 2023-07-13 00:06 | Outpatient (BNV) | payer MEDICARE, SELFPAY | PROVIDERS: Admitting Provider Student in an Organized Health Care Education/Training Program; Emergency Provider Emergency Medicine; PCP Internal Medicine; Visit Provider Internal Medicine Cardiovascular Disease | DX: I26.99 Other pulmonary embolism without acute cor pulmonale (principal); I48.91 Unspecified atrial fibrillation | CPT/HCPCS: 99223; 99232 ==

== ENCOUNTER → 2023-07-13 00:06 | Outpatient (BNV) | payer MEDICARE, SELFPAY | PROVIDERS: Admitting Provider Student in an Organized Health Care Education/Training Program; Emergency Provider Emergency Medicine; PCP Internal Medicine; Visit Provider Internal Medicine Medical Oncology | DX: I26.99 Other pulmonary embolism without acute cor pulmonale (principal) | CPT/HCPCS: 99222 ==

== ENCOUNTER 2023-09-08 13:18 | Outpatient (AMB) | payer MEDICARE, SELFPAY ==
[2023-09-08 13:20] VITALS: BP 110/70; PULSE 84; BMI 32.5
--- NOTE | 2023-09-08 13:20 | A.OFFVIS_ITS ---
Vital Signs 09/08/23 13:20 Height 5 ft 7 in Weight 207 lb 10.807 oz BMI 32.5 BP 110/70 Blood Pressure Location Lt brachial Position Sitting Pulse 84 Pulse Source Pulse Oximeter Intake Visit Reasons: 6 mth f/up Intake Note: 6mth f/up/ pt state that she is feeling fine. Ct Scan Technician Required: No Accompanied by: Self / Same As Patient Allergies doxycycline Allergy (Mild, Verified 07/12/23 12:50) Rash lorazepam Allergy (Unknown, Verified 03/24/23 14:39) unknown pantoprazole Allergy (Unknown, Verified 03/24/23 14:39) NAUSEA amoxicillin [AMOXICILLIN] Adverse Reaction (Intermediate, Verified 03/24/23 14:39) NAUSEA/VOMITING Medication List - Last Reconciled 09/08/23 by Eran Butler MD citalopram 20 mg PO DAILY 90 days digoxin 125 mcg PO MOWEFR fluticasone propion-salmeterol 115-21 mcg/actuation (Advair HFA) 2 puffs inh alation Q12H fluticasone propionate 50 mcg/actuation 1 spray intranasal DAILY 30 days memantine 5 mg PO BID metoprolol succinate ER 50 mg See Protocol PO BID omeprazole 40 mg PO DAILY rivaroxaban 20 mg PO DAILY rosuvastatin 20 mg PO DAILY HPI Comments Details: Pleasant 82-year-old female here for follow-up. She has background history of permanent atrial fibrillation. She was previously managed with the rate control strategy. She had GI bleed but recovered and has been on Xarelto and stable on the medications. She has some dyspnea on exertion. She has background of lung disease too. Taking her medications regularly. Her blood pressure in the office is elevated. EKG is showing atrial fibrillation as before. She has no palpitations or any other symptoms. Her last LV assessment was in 2020 when the LV function was normal. 09/08/2023: She is here for follow-up. In 07/12/2023 she presented to [facility] with shortness of breath and was diagnosed with bilateral pulmonary embolism. It appears she was missing her rivaroxaban doses and that may have played a role in this presentation. She has been on rivaroxaban 20 mg after 50 mg twice a day dosing for 21 days. [facility] Medical History Chronic a-fib Acute GI bleeding Moderate persistent asthma Surgical History Status post surgical removal of malignant neoplasm of skin Family History Father No problems noted. Mother Cerebral brain hemorrhage Social History Household Members: None Housing: House Do you presently have visiting nurse or other home services: No Alcohol intake: current Alcohol intake frequency: a few times a month Patient Tobacco Use Status: Never used Tobacco e-Cigarette/Vaping Use: Never Used Second Hand Smoke Exposure: Yes Advance Directives Date on File: 09/15/21 service: No Current occupational status: retired Cognitive needs: No Hearing needs: No Vision needs: Yes Review of Systems Const Denies chills, Denies fatigue, Denies fever(s), Denies frequent falls, Denies weakness, Denies weight gain and Denies weight loss ENT Denies dizziness Card Denies chest pain, Denies leg edema, Denies lightheadedness, Denies palpitations, Denies dyspnea and Denies dyspnea on exertion Resp Denies cough, Denies dyspnea and Denies dyspnea on exertion GI Denies hematochezia Musc Denies abnormal gait, Denies muscle weakness, Denies numbness, Denies radiating pain into limb and Denies tingling Neuro Denies abnormal gait, Denies dizziness, Denies frequent falls, Denies numbness, Denies tingling and Denies weakness Endo Denies fatigue and Denies palpitations Physical Exam Vital Signs: Last Vital Signs Pulse 84 09/08/23 13:20 BP 110/70 09/08/23 13:20 BMI result Body Mass Index 32.5 Assessment & Plan Assessment & Plan (1) Bilateral pulmonary embolism: Code(s): I26.99 - Other pulmonary embolism without acute cor pulmonale Category: Medical (2) Atrial fibrillation: Code(s): I48.91 - Unspecified atrial fibrillation Category: Medical Plan Pleasant 82-year-old female with permanent Afib who recently came with bilateral PEs and had Afib with RVR. She has been on Xarelto. It appears she was somewhat noncompliant with her anticoagulation before this presentation. She has been taking Xarelto regularly. HR well controlled now. Afib with RVR was due to PE which is not unusual. Overall stable and doing well. She will see us back in 6 months. Coding Level of Care Code Est Pt Level 4 (14329) Diagnoses Bilateral pulmonary embolism I26.99 Atrial fibrillation I48.91
== END 2023-09-08 13:56 | disposition home or self-care (01) ==
PROVIDERS: PCP Internal Medicine; Visit Provider Internal Medicine Cardiovascular Disease
DX: I26.99 Other pulmonary embolism without acute cor pulmonale (principal); I48.91 Unspecified atrial fibrillation
CPT/HCPCS: 99214

== ENCOUNTER → 2023-09-08 13:18 | Outpatient (BNVA) | payer MEDICARE, SELFPAY | PROVIDERS: PCP Internal Medicine; Visit Provider Internal Medicine Cardiovascular Disease | DX: I48.21 Permanent atrial fibrillation (principal); I26.99 Other pulmonary embolism without acute cor pulmonale | CPT/HCPCS: 99212 ==

== ENCOUNTER 2023-11-03 15:11 | Outpatient (AMB) | payer MEDICARE, SELFPAY ==
--- NOTE | 2023-11-03 15:11 | A.OFFPC_ITS ---
Vital Signs 11/03/23 15:12 Height 5 ft 7 in Weight 209 lb 2 oz BMI 32.8 BP 138/80 Blood Pressure Location Rt brachial Position Sitting Pulse 74 Pulse Source Pulse Oximeter Pulse Oximetry (%) 95 Oxygen Delivery Method Room Air Intake Visit Reasons: HDF/BLOOD CLOG Allergies doxycycline Allergy (Mild, Verified 11/03/23 15:18) Rash lorazepam Allergy (Unknown, Verified 11/03/23 15:18) unknown pantoprazole Allergy (Unknown, Verified 11/03/23 15:18) NAUSEA amoxicillin [AMOXICILLIN] Adverse Reaction (Intermediate, Verified 11/03/23 15:18) NAUSEA/VOMITING Medication List - Last Reconciled 11/03/23 by Kallie Guerrero MD citalopram 20 mg PO DAILY 90 days digoxin 125 mcg PO MOWEFR 90 days fluticasone propion-salmeterol 115-21 mcg/actuation (Advair HFA) 2 puffs inhalation Q12H fluticasone propionate 50 mcg/actuation 1 spray intranasal DAILY 30 days memantine 5 mg PO BID metoprolol succinate ER 50 mg See Protocol PO BID omeprazole 40 mg PO DAILY rivaroxaban 20 mg PO DAILY rosuvastatin 20 mg PO DAILY Tobacco use date assessed: 11/03/23 Fall risk assessment: No Falls in past year Last assessed Fall Risk: 11/03/23 Dental Screening Dental Screen Date: 11/03/23 Did you have a dental visit in the last 12 months?: No Did you have a dental problem in the last 6 months where you did not have access to dental care?: No Was dental information given to patient?: No HPI HDF/BLOOD CLOG HPI Details Patient is 82-year-old female with mild cognitive disorder came in today for hospital discharge follow-up from June of this year when she presented to [facility] with a chief complaint of shortness a breath and fatigue She went to walk-in clinic before that where EKG was done which showed atrial fibrillation with RVR heart rate of 130s ambulance was called in and patient was brought to emergency room AFib is chronic however to control the heart rate better she was given 5 mg of metoprolol in emergency room. Patient was already on 50 mg of metoprolol and 0.125 mg of digoxin Wednesday and Wednesday EKG did not show any ST depression or elevation, nonspecific T-wave inversions were seen in lead 3 QTC 414 Labs showed normal hematology and chemistry, BNP 73 tropes slightly elevated at 40 Chest x-ray no obvious abnormalities no pneumonia no Congestive heart failure Later on patient admitted that she is not compliant with her medications D-dimer came back positive at 979 Patient was given CTA to rule out pulmonary embolism CTA showed extensive bilateral pulmonary embolism with right-sided heart pressure Multiple small pulmonary nodules were seen in the upper lobes measuring 3 mm in size Last visit to Cardiology also reviewed by Dr. Butler 09/08/2023 In verbalized to taking her Xarelto regularly Patient was found to be stable And another follow-up appointment was booked for six-months Heparin drip was started and patient was admitted Her other medications are citalopram 20 mg for anxiety Advair for asthma/COPD controlled by biotech production specialist Ms. Amantadine for cognitive impairment Omeprazole 40 mg daily due to history of GI bleed Rosuvastatin 20 mg for lipid control Last set of lab was from June of this year I have placed a new set of lab order for the patient She has developed cellulitis left side of lower leg for that I have sent Levaquin 500 once a day for 5 days Along with frusemide once a day for 7 days Patient have an appointment coming up with lymphedema clinic of this month Her activity level is back to baseline She would like to have a handicap placard form filled which I did for her. PENDING SALE TO [facility] Medical History Atrial fibrillation with RVR Chronic a-fib Acute GI bleeding Moderate persistent asthma Surgical History Status post surgical removal of malignant neoplasm of skin Family History Father No problems noted. Mother Cerebral brain hemorrhage Social History Household Members: None Housing: House Do you presently have visiting nurse or other home services: No Alcohol intake: current Alcohol intake frequency: a few times a month Patient Tobacco Use Status: Never used Tobacco e-Cigarette/Vaping Use: Never Used Second Hand Smoke Exposure: Yes Advance Directives Date on File: 09/15/21 service: No Current occupational status: retired Cognitive needs: No Hearing needs: No Vision needs: Yes Questionnaire PHQ-9 Over the last 2 weeks, how often have you been bothered by any of the following problems? 1. Little interest or pleasure in doing things: not at all 2. Feeling down, depressed, or hopeless: not at all 3. Trouble falling or staying asleep, or sleeping too much: not at all 4. Feeling tired or having little energy: more than half the days 5. Poor appetite or overeating: several days 6. Feeling bad about yourself - or that you are a failure or have let yourself or your family down: not at all 7. Trouble concentrating on things, such as reading the newspaper or watching television: not at all 8. Moving or speaking so slowly that other people could have noticed. Or the opposite - being so fidgety or restless that you have been moving around a lot more than usual: not at all 9. Thoughts that you would be better off or of hurting yourself in some way: not at all Total score: 3 Depression Screening Interpretation: Negative Depression Screening Done: Yes [id number] - PHQ-9 Billing: Yes Source: Developed by Drs. Aries Romero, Kecia Pedraza, Eliezer Hu and colleagues, with an educational tiana from [employer]. Thrive Questionnaire Date Thrive assessed: 11/03/23 I am a: Patient What is your living situation today?: I have a steady place to live Within the past 12 months, did the food you bought not last and you didn't have the money to get more?: Never true Within the past 12 months, did you worry whether your food would run out before you got money to buy more?: Never true Do you have trouble paying for medicines?: No Do you have trouble getting transportation to medical appointments?: No Do you have trouble paying your heating and electricity bill?: No Do you have trouble taking care of your child, family member or friend?: No Do you have trouble with day-to-day activities such as bathing, preparing meals, shopping, managing finances, etc.?: No Are you currently unemployed and looking for a job?: No Are you interested in more education?: No Please select the resources that you would like help with: None Currently or been in a relationship where the following occur: No concerns reported THRIVE Score: 0 AUDIT C Alcohol Use Questionnaire (AUDIT-C) 1. How often do you have a drink containing alcohol?: 2-4 times a month 2. How many drinks containing alcohol do you have on a typical day when you are drinking?: 1 or 2 3. How often do you have six or more drinks on one occasion?: Never Total Score: 2 Score Reviewed/Action Taken: Yes LORIE-7 AMB Questionnaire LORIE-7 Date LORIE - 7 assessed: 11/03/23 Feeling nervous, anxious, or on edge: 0 = Not at all Not being able to stop or control worryin = Not at all Worrying too much about different things: 0 = Not at all Trouble relaxin = Not at all Being so restless that it is hard to sit still: 0 = Not at all Becoming easily annoyed or irritable: 0 = Not at all Feeling afraid as if something awful might happen: 0 = Not at all Total LORIE-7 score (0-4 normal; 5-9 mild; 10-14 moderate; 15-21 severe): 0 Source: Developed by Drs. Aries Romero, Kecia Pedraza, Eliezer Hu and colleagues, with an educational tiana from [employer]. LORIE-7 Assessment Billing LORIE-7 Assessment Tool: LORIE-7 Assessment 84977 Review of Systems Const Denies chills and Denies fever(s) ENT Denies epistaxis and Denies nasal discharge Card Denies chest pain Resp Denies chest congestion, Denies cough and Denies hemoptysis GI Denies diarrhea and Denies nausea Skin/Breast Denies rash Neuro Reports no additional complaints Psych Reports no additional complaints Endo Reports no additional complaints Physical exam (Primary Care) Vital Signs: Last Vital Signs Pulse 74 11/03/23 15:12 BP 138/80 11/03/23 15:12 Pulse Ox 95 11/03/23 15:12 Oxygen Delivery Method Room Air 11/03/23 15:12 BMI result Body Mass Index 32.8 Tobacco/Smoking Status: Tobacco use Status Tobacco use date assessed 11/03/23 11/03/23 15:18 Patient Tobacco Use Status Never used Tobacco 11/03/23 15:12 e-Cigarette/Vaping Use Never Used 11/03/23 15:12 PHQ-9: PHQ-9 Score PHQ-9: Total score 3 11/03/23 15:19 Depression Screening Interpretation: Negative Thrive Assessment: Date of Thrive Assessment Date Thrive assessed 11/03/23 11/03/23 15:19 Currently or been in a relationship where the following occur: No concerns r eported Const General: cooperative, comfortable and no acute distress Orientation/consciousness: patient oriented x3 HENMT Head: Yes normocephalic Eyes General: appearance normal, both eyes and all related structures Neck Neck: Yes supple Resp Effort & Inspection: normal respiratory effort, no cough and no stridor Cardio Heart sounds: S1 normal heart sound present and S2 normal heart sound present Skin General skin exam: turgor normal Neuro General: patient oriented x3, tone normal and moves all extremities Extrem Other: Severe lymphedema both lower extremity left more than right, left side with erythema warmth and increase diameter compared to right side Assessment and Plan Assessment & Plan (1) Bilateral pulmonary embolism: Code(s): I26.99 - Other pulmonary embolism without acute cor pulmonale (2) Cellulitis of left lower leg: Code(s): L03.116 - Cellulitis of left lower limb (3) Lymphedema: Code(s): I89.0 - Lymphedema, not elsewhere classified (4) Moderate persistent asthma: Code(s): J45.40 - Moderate persistent asthma, uncomplicated Qualifiers: Asthma complication type: uncomplicated Qualified Code(s): J45.40 - Moderate persistent asthma, uncomplicated (5) Overactive bladder: Comment: Response to Botox intermittent Code(s): N32.81 - Overactive bladder (6) Atrial fibrillation: Code(s): I48.91 - Unspecified atrial fibrillation Qualifiers: Atrial fibrillation type: permanent Qualified Code(s): I48.21 - Permanent atrial fibrillation (7) Lipid disorder: Code(s): E78.9 - Disorder of lipoprotein metabolism, unspecified (8) Depression with anxiety: Code(s): F41.8 - Other specified anxiety disorders (9) Mild cognitive disorder: Code(s): F09 - Unspecified mental disorder due to known physiological condition (10) Chronic GERD: Code(s): K21.9 - Gastro-esophageal reflux disease without esophagitis Plan Patient is 82-year-old female with mild cognitive disorder came in today for hospital discharge follow-up from June of this year when she presented to [facility] with a chief complaint of shortness a breath and fatigue She went to walk-in clinic before that where EKG was done which showed atrial fibrillation with RVR heart rate of 130s ambulance was called in and patient was brought to emergency room AFib is chronic however to control the heart rate better she was given 5 mg of metoprolol in emergency room. Patient was already on 50 mg of metoprolol and 0.125 mg of digoxin Wednesday and Wednesday EKG did not show any ST depression or elevation, nonspecific T-wave inversions were seen in lead 3 QTC 414 Labs showed normal hematology and chemistry, BNP 73 tropes slightly elevated at 40 Chest x-ray no obvious abnormalities no pneumonia no Congestive heart failure Later on patient admitted that she is not compliant with her medications D-dimer came back positive at 979 Patient was given CTA to rule out pulmonary embolism CTA showed extensive bilateral pulmonary embolism with right-sided heart pressure Multiple small pulmonary nodules were seen in the upper lobes measuring 3 mm in size Last visit to Cardiology also reviewed by Dr. Butler 09/08/2023 In verbalized to taking her Xarelto regularly Patient was found to be stable And another follow-up appointment was booked for six-months Heparin drip was started and patient was admitted Her other medications are citalopram 20 mg for anxiety Advair for asthma/COPD controlled by biotech production specialist MsShahram Amantadine for cognitive impairment Omeprazole 40 mg daily due to history of GI bleed Rosuvastatin 20 mg for lipid control Last set of lab was from June of this year I have placed a new set of lab order for the patient She has developed cellulitis left side of lower leg for that I have sent Levaquin 500 once a day for 5 days Along with frusemide once a day for 7 days Patient have an appointment coming up with lymphedema clinic of this month Her activity level is back to baseline She would like to have a handicap placard form filled which I did for her. 45 minutes spent in care of this patient including reviewing chart, hospital notes, consultations [id number] with the patient, coordination of care Orders: Orders Complete Blood Count Auto Diff Today E78.9 - Disorder of lipoprotein metabolism, unspecified, F09 - Unspecified mental disorder due to known physiological condition, F41.8 - Other specified anxiety disorders, I26.99 - Other pulmonary embolism without acute cor pulmonale, I48.91 - Unspecified atrial fibrillation, I89.0 - Lymphedema, not elsewhere classified, J45.40 - Moderate persistent asthma, uncomplicated, K21.9 - Gastro-esophageal reflux disease without esophagitis, N32.81 - Overactive bladder Comprehensive Met. Panel Today E78.9 - Disorder of lipoprotein metabolism, unspecified, F09 - Unspecified mental disorder due to known physiological condition, F41.8 - Other specified anxiety disorders, I26.99 - Other pulmonary embolism without acute cor pulmonale, I48.91 - Unspecified atrial fibrillation, I89.0 - Lymphedema, not elsewhere classified, J45.40 - Moderate persistent asthma, uncomplicated, K21.9 - Gastro-esophageal reflux disease without esophagitis, N32.81 - Overactive bladder B Type Natriuretic Peptide Today E78.9 - Disorder of lipoprotein metabolism, unspecified, F09 - Unspecified mental disorder due to known physiological condition, F41.8 - Other specified anxiety disorders, I26.99 - Other pulmonary embolism without acute cor pulmonale, I48.91 - Unspecified atrial fibrillation, I89.0 - Lymphedema, not elsewhere classified, J45.40 - Moderate persistent ast hma, uncomplicated, K21.9 - Gastro-esophageal reflux disease without esophagitis, N32.81 - Overactive bladder Medications: New furosemide (Lasix) 20 mg PO QAM 7 tabs 0RF levofloxacin 500 mg PO DAILY 5 tabs 0RF 5 days Coding Level of Care Code Est Pt Level 5 (21349) Diagnoses Bilateral pulmonary embolism I26.99 Cellulitis of left lower leg L03.116 Lymphedema I89.0 Moderate persistent asthma without complication J45.40 Asthma complication type: uncomplicated Overactive bladder N32.81 Permanent atrial fibrillation I48.21 Atrial fibrillation type: permanent Lipid disorder E78.9 Depression with anxiety F41.8 Mild cognitive disorder F09 Chronic GERD K21.9 Additional Codes LORIE-7 Assessment Billing - LORIE-7 Assessment Tool: LORIE-7 Assessment [id number] ([id number])
[2023-11-03 15:12] VITALS: BP 138/80; PULSE 74; O2SAT 95; BMI 32.8
--- OUTSIDE RECORDS SUMMARY | 2023-11-03 15:13 | XMS_ITS ---
[facility] Address [address] [place] [address] Care Team Providers Care Fire Alarm Repairer Name Role Phone Cesar ENGLISH, Asma Primary Care Provider Aman Kohler Unavailable [phone] ALLERGIES Allergen (clinical drug ingredient) Drug/Non Drug Allergy documented on EMR Reaction Allergy Type Onset Date Status Wood wood (uncoded) nose gets stuff Allergy Active amoxicillin Amoxicillin Unknown Drug Allergy Act teena Powders Unknown Drug Allergy Active REASON FOR VISIT Painful nail(s) aggrevated by shoes and causing difficulty standing/walking. MEDICATIONS Medication SIG (Take, Route, Frequency, Duration) Notes Start Date End Date Status Diflucan 200 MG 1 tablet Orally Once a week for 30 days Not-Taking Aspirin Not-Taking Cholestyramine 4 GM/DOSE 1 Orally Twice a day Not-Taking Cozaar Not-Taking Fenofibrate Not-Taki ng Extra-Depth Diabetic Shoes with 3 Pair Custom heat-molded multi-density innersoles . for 1 year . Dx:please accomodate for ulcer plantar left 2nd mtpj in her inserts for . 06/05/2014 Active Xarelto 20 MG Orally Active Eliquis Not-Taking Omeprazole 40 MG 1 tablet Orally Once a day Active Multivitamins Active Fluticasone Furoate Active Flovent HFA 44 MCG/ACT 1 puff Inhalation Twice a day Active Glucosamine Active Gemfibrozil 600 MG Orally A ctive Metoprolol Succinate Active CeleBREX 200 MG 1 capsule Orally Onc e a day Active Citalopram Hydrobromide Active Cod Liver Oil Active Donepezil HCl Active Claritin Active AmLactin 12 % 1 application to affected area Externally Twice a day to feet for 30 days Active Albuterol Sulfate Ac tive SOCIAL HISTORY Tobacco Use: Social History Observation [...] Are you an other tobacco user? No VITAL SIGNS Height 5 ft 7 in in 07/24/2022 Weight 196 lbs 07/24/2022 BMI 30.69 kg/m2 07/24/2022 Encounters Encounter Location Date Provider Diagnosis [facility] [address] [address] 07/24/2022 Aman Agrawal Tinea unguium B35.1 ; Other viral warts B07.8 ; Pain in left foot M79.672 ; Pain in right foot M79.671 ; Pain in right toe(s) M79.674 ; Pain in left toe(s) M79.675 ; Unspecified atherosclerosis of [place] arteries of extremities, bilateral legs I70.203 ; Lymphedema I89.0 and Xerosis cutis L85.3 ASSESSMENTS Encounter Date Diagnosis Assessment Notes Treatment Notes Treatment Clinical Notes 07/24/2022 Tinea unguium (ICD-1 0 - B35.1) 07/24/2022 Other viral warts (ICD-10 - B07.8) 07/24/2022 Pain in left foot (ICD-10 - M79.672) 07/24/2022 Pain in right foot (ICD-10 - M79.671) 07/24/2022 Pain in right toe(s) (ICD-10 - M79.674) 07/24/2022 Pain in left toe(s) (ICD-10 - M79.675) 07/24/2022 Unspecified atherosclerosis of [place] arteries of extremities, bilateral legs (ICD-10 - I70.203) 07/24/2022 Lymphedema (ICD-10 - I89.0) 07/24/2022 Xerosis cutis (ICD-1 0 - L85.3) PLAN OF TREATMENT Medication Medication Name Sig Start Date Stop Date Notes AmLactin 12 % 1 application to aff ected area Externally Twice a day to feet for 30 days Next Appt Details Follow Up: 3 Months, Reason: Procedure Notes * Category Sub-Category Detail Notes Debride Nail 6-10 Nail debridement Nail debridem ent performed extensively to reduce/remove overall nail length and girth, subungual debris, and necrotic tissue, by manual and electrical means with use of a nail nipper and/or dremel, to more viable healthy nail plate or bed tissue 6-10. Silver nitrate used for any petechial bleeding as necessary. Patient chooses, no pharmaceutical tx ([id number]) Keratoma Treatment Parring or Cutting o f Benign Hyperkeratotic Lesion(s) 38703 ( >4 Lesions) - The Benign hyperkeratotic lesions, as described above were pared, and/or cut utilizing a sterile #15 blade, tissue nippers, and/or dremel, Q8 Progress Notes * Examination Category Sub-Category Detail Notes Neurological SENSORY: neurological exa m is normal., pain sensation normal, vibration sensation intact, pinprick sensation is normal in the lower extremities, denies, tingling, burning, anesthesia, paresthesia, hyperesthesia Dermatologic SKIN FINDINGS: Skin exam reveal s Keratotic lesion(s) located at, Medial plantar, TA, T5, SUB MTH (s), 1, Left, 2, 3, 4, B/L, Skin exam reveals Keratotic lesion(s) located at, Dorsal, PIPJ, T9, Skin shows sign(s) of, dryness, scaling, in a stocking fashion, no fissure(s) present, B/L Orthopedic DIGITAL DEFORMITIES: Digital con tracture, MPJ Contracture/Dorsal sublux. 2nd left General Examination GENERAL APPEARANCE: alert, w ell hydrated, in no distress , good attention to hygiene ORIENTED: person,place, and ti me Vascular DP PULSES: 0/4, B/L PT PULSES: 0/4, B/L TROPHIC CONDITION FOR TEXTUR E/ELASTICITY/TURGOR/HAIR GROWTH: decreased, B/L EDEMA: 2/4, B/L, Feet, Ankl e(s), Leg(s) PIGMENTATION: mottled, B/L, brawny , B/L Nails NAILS are: elongated,overgr own,dystrophic,greater than 3mm thick,discolored and friable with crumbly malodorous subungual debris, with pain on palpation, 1-5 B/L History and Physical Notes * HPI (History of Present Illness) Category Sub-Category Detail Notes Painful Nails Pt States Last PCP Visit: Date:: 023 Skin problems Nature: dryness Location: B/L , Forefoot, Heel /Rearfoot, Ankle Duration: several months Onset/Cause: unknown
--- OUTSIDE RECORDS SUMMARY | 2023-11-03 15:13 | XMS_ITS | Patient Health Record ---
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, bilateral legs (I70.203) Active confirmed Atherosclerosis of yurok arteries of the extremities (976810349277505) Problem Lymphedema (I89.0) Active confirmed [id number] PLAN OF TREATMENT Pending Test Test Name Order Date X ray : Foot, left 2V 05/29/2011 X ray : Foot, right 2V 05/29/2011 *Liver Function Test (LFT) 09/27/2017 X ray : Foot, left 3V 06/05/2014 74889-QTZLHYP NAIL, 6 OR MORE 01/13/2013 96010-OQLGIRA NAIL, 6 OR MORE 07/28/2013 95541-ZYJIIBS NAIL, 6 OR MORE 11/14/2013 17911-QOZIGIR NAIL, 6 OR MORE 02/09/2014 37787-YHOORMI NAIL, 6 OR MORE 05/22/2014 14448-WXWWEUZ NAIL, 6 OR MORE 09/10/2014 17930-GPNTIOX NAIL, 6 OR MORE 11/30/2014 93141-CVLBGPS NAIL, 6 OR MORE 03/01/2015 44791-DCPYYFY NAIL, 6 OR MORE 05/24/2015 97372-SCMOPLY NAIL, 6 OR MORE 08/16/2015 80083-HZDJMUE NAIL, 6 OR MORE 11/08/2015 29884-PNTEFRM NAIL, 6 OR MORE 11/22/2015 42526-PLZKGFF NAIL, 6 OR MORE 05/29/2011 54086-KQACRGO NAIL, 6 OR MORE 08/14/2011 18112-SXCNYXN NAIL, 6 OR MORE 10/23/2011 09980-EIQXINU NAIL, 6 OR MORE 01/05/2012 18677-TZMDDRA NAIL, 6 OR MORE 11/14/2010 01406-UQSMMQH NAIL, 6 OR MORE 11/18/2010 56346-MIPBWNG NAIL, 6 OR MORE 04/05/2012 27327-YEMHYVB NAIL, 6 OR MORE 07/08/2012 42625-XIYUXER NAIL, 6 OR MORE 07/12/2012 88469-QIDGEJH NAIL, 6 OR MORE 10/14/2012 44294-FJOANMX NAIL, 6 OR MORE 04/21/2013 72923-NJXYXQC NAIL, 6 OR MORE 09/27/2017 43587-UOPIWFA NAIL, 6 OR MORE 03/09/2017 66341-JVIEZYE NAIL, 6 OR MORE 02/11/2016 91054-BBDBXPP NAIL, 6 OR MORE 05/29/2016 85900-IGCNMYF NAIL, 6 OR MORE 08/28/2016 76195-MYAKIVD NAIL, 6 OR MORE 12/08/2016 64527-EZCJVNZ NAIL, 6 OR MORE 12/28/2017 10549-Wdjl Destruction, -14 08/28/2016 72912-Xrep Destruction, -14 02/11/2016 96796-Txxe Destruction, -14 11/30/2014 92808-Zmjt Destruction, -14 04/21/2013 71236-Icrn Destruction, -14 10/14/2012 14999-Olwb Destruction, -14 07/12/2012 34713-Qlyn Destruction, -14 07/08/2012 10002-Ybbz Destruction, -14 01/05/2012 18328-Jhqc Destruction, -14 04/05/2012 94512-Dazh Destruction, -14 11/18/2010 58214-Tscw Destruction, -14 11/14/2010 25534-Mttw Destruction, -14 02/27/2011 10376-Cbms Destruction, -14 05/29/2011 68722-Wvvn Destruction, -14 10/23/2011 88119-Hcta Destruction, -14 08/14/2011 86479-Gcms Destruction, -14 11/22/2015 84611-Eufm Destruction, -14 11/08/2015 55607-Rowj Destruction, -14 08/16/2015 55709-Wcvz Destruction, -14 05/24/2015 75307-Yraz Destruction, -14 03/01/2015 14603-Zokc Destruction, -14 02/09/2014 92736-Tlkd Destruction, -14 09/10/2014 13511-Fkzj Destruction, -14 05/22/2014 39515-Olsy Destruction, -14 07/03/2014 18935-Rywz Destruction, -14 11/14/2013 24286-Yvav Destruction, -14 07/28/2013 32106-Qpwq Destruction, -14 01/13/2013 31522-Djbfrqgr Plate 01/13/2013 31132-Zvhpvaen Plate 07/03/2014 61125-Cwnrmdbt Plate 07/28/2013 50708-Xnmbqhen Plate 11/14/2013 68572-Glcmipci Plate 02/09/2014 88191-Qfbbjqfj Plate 05/22/2014 91329-Rrjxmnba Plate 09/10/2014 17051-Gidwnkox Plate 11/30/2014 01251-Tbbvkxwl Plate 10/23/2011 27597-Cstwoiae Plate 01/05/2012 98899-Ivuzojqo Plate 05/29/2011 28729-Qbbkdnmv Plate 02/27/2011 70027-Gbpqkpec Plate 11/18/2010 23237-Xmvstnci Plate 04/05/2012 12798-Vzejhyfg Plate 07/12/2012 52013-Papwjkqh Plate 07/08/2012 60489-Gygpzmst Plate 04/21/2013 63830-NXGZFCO SKIN/TISSUE 06/05/2014 15086-CDWVKIO SKIN/TISSUE 05/22/2014 40482-QBFG SKIN LESIONS, OVER 4 03/01/19 16 95556-CLMF SKIN LESIONS, OVER 4 05/24/19 16 56423-FQDB SKIN LESIONS, OVER 4 08/16/19 16 00451-HRRU SKIN LESIONS, OVER 4 11/22/19 16 33219-RFIS SKIN LESIONS, OVER 4 09/28/19 18 11848-JLCI SKIN LESIONS, OVER 4 06/16/19 18 81222-ONLS SKIN LESIONS, OVER 4 12/29/19 18 18198-HXRA SKIN LESIONS, OVER 4 02/11/20 16 76996-VWMY SKIN LESIONS, OVER 4 05/30/19 17 70704-UMEB SKIN LESIONS, OVER 4 08/29/19 17 04793-JNXK SKIN LESIONS, OVER 4 12/09/19 17 29572-YFWU SKIN LESIONS, OVER 4 03/09/19 18 26792-IVWE SKIN LESIONS, OVER 4 03/29/19 19 05962-UDJL SKIN LESIONS, OVER 4 07/09/19 19 64592-OATC SKIN LESIONS, OVER 4 10/08/19 19 34452-DCFE SKIN LESIONS, OVER 4 01/07/20 19 14183-LPJL SKIN LESIONS, OVER 4 04/07/19 20 57626-RKXY SKIN LESIONS, OVER 4 06/30/19 69370-ZXLQ SKIN LESIONS, OVER 4 09/29/19 80255-DRTT SKIN LESIONS, OVER 4 12/29/19 89588-OAAH SKIN LESIONS, OVER 4 04/09/19 21 03967-TZHL SKIN LESIONS, OVER 4 07/06/19 16600-OBDD SKIN LESIONS, OVER 4 10/05/19 04957-CVMY SKIN LESIONS, OVER 4 01/04/20 05815-GIKX SKIN LESIONS, OVER 4 04/04/19 69710- Nail Unit Biopsy 06/15/2017 Insurance Providers Payer Name Payer Address Payer Phone Subscriber Number Group Number Insured Name Patient Relationship to Insured Coverage Start Date Coverage End Date Medicare [employer] [address] [place] [address] [id number] Madelyn Clark Self - patient is the insured MEDICAL (GENERAL) HISTORY Medical History History ICD Code asthma chicken pox hypertension measles mumps mumps measles hypertension chicken pox asthma Cellulitis Diverticulitis Surgical History Surgery Date(Month/Year) oral surgery 11/05 skin cancer removal forehead 11/28/13 Dental Implant 05/08/15 Hospital[place] History Reason Date(Month/[place] [facility] [place]/08[place]09[place]14 C couldn't open her eye 07/2018 [facility] [place] 07/16/16-07/20/16 [facility] for Dental implant 05/08/15 MRI, TIA, MRA 08/06 oral surgery 11/05
--- OUTSIDE RECORDS SUMMARY | 2023-11-03 15:13 | XMS_ITS ---
Author Organization [facility] Address [address] [facility] [place] [address] Care Team Providers Care Filler Feeder Name Role Phone Cesar ENGLISH, Asma Primary Care Provider Aman Kohler Unavailable [phone] REASON FOR VISIT Painful nail(s) aggrevated by shoes and causing difficulty standing/walking. MEDICATIONS Medication SIG (Take, Route, Frequency, Duration) Notes Start Date End Date Status AmLactin 12 % 1 application to aff ected area Externally Twice a day to feet for 30 days Active Encounters Encounter Location Date Provider Diagnosis [facility] [address] [address] 10/23/2022 Aman Agrawal Tinea unguium B35.1 ; Other viral warts B07.8 ; Pain in left foot M79.672 ; Pain in right foot M79.671 ; Pain in right toe(s) M79.674 ; Pain in left toe(s) M79.675 ; Unspecified atherosclerosis of bad [place] arteries of extremities, bilateral legs I70.203 ; Lymphedema I89.0 and Xerosis cutis L85.3 ASSESSMENTS Encounter Date Diagnosis Assessment Notes Treatment Notes Treatment Clinical Notes 10/23/2022 Tinea unguium (ICD-1 0 - B35.1) 10/23/2022 Other viral warts (ICD-10 - B07.8) 10/23/2022 Pain in left foot (ICD-10 - M79.672) 10/23/2022 Pain in right foot (ICD-10 - M79.671) 10/23/2022 Pain in right toe(s) (ICD-10 - M79.674) 10/23/2022 Pain in left toe(s) (ICD-10 - M79.675) 10/23/2022 Unspecified atherosclerosis of bad river band arteries of extremities, bilateral legs (ICD-10 - I70.203) 10/23/2022 Lymphedema (ICD-10 - I89.0) 10/23/2022 Xerosis [...] as necessary. Patient chooses, no pharmaceutical tx (81323) Keratoma Treatment Parring or Cutting o f Benign Hyperkeratotic Lesion(s) 62187 ( >4 Lesions) - The Benign hyperkeratotic [...]
--- OUTSIDE RECORDS SUMMARY | 2023-11-03 15:13 | XMS_ITS ---
Author Organization [facility] Address [address] [place] [address] Care Team Providers Care X Ray Electronics Wireman Name Role Phone Cesar ENGLISH, Asma Primary Care Provider Aman Kohler Unavailable [phone] REASON FOR VISIT cx/NS 10/23 Encounters Encounter Location Date Provider Diagnosis [facility] [address] [place] [address] 10/23/2022 Aman Agrawal PLAN OF TREATMENT No Information
== END 2023-11-03 15:46 | disposition home or self-care (01) ==
LOC: HO.HMGC 15:11
PROVIDERS: PCP Internal Medicine; Visit Provider Internal Medicine
DX: I26.99 Other pulmonary embolism without acute cor pulmonale (principal); I48.21 Permanent atrial fibrillation; L03.116 Cellulitis of left lower limb; I89.0 Lymphedema, not elsewhere classified; J45.40 Moderate persistent asthma, uncomplicated; N32.81 Overactive bladder; E78.9 Disorder of lipoprotein metabolism, unspecified; F41.8 Other specified anxiety disorders; F09 Unspecified mental disorder due to known physiological condition; K21.9 Gastro-esophageal reflux disease without esophagitis
CPT/HCPCS: 99215

== ENCOUNTER 2023-12-10 11:27 | Outpatient (AMB) | payer MEDICARE, SELFPAY ==
[2023-12-10 11:29] VITALS: BP 128/64; PULSE 82; O2SAT 96; BMI 33.3
--- NOTE | 2023-12-10 11:29 | MHC.OFFVIS ---
Vital Signs 12/10/23 11:29 Height 5 ft 7 in Weight 212 lb 11.937 oz BMI 33.3 BP 128/64 Blood Pressure Location Rt brachial Position Sitting Pulse 82 Pulse Source Doppler Pulse Oximetry (%) 96 Oxygen Delivery Method Room Air Intake Visit Reasons: Shortness of breath Allergies doxycycline Allergy (Mild, Verified 11/03/23 15:18) Rash lorazepam Allergy (Unknown, Verified 11/03/23 15:18) unknown pantoprazole Allergy (Unknown, Verified 11/03/23 15:18) NAUSEA amoxicillin [AMOXICILLIN] Adverse Reaction (Intermediate, Verified 11/03/23 15:18) NAUSEA/VOMITING HPI HPI Shortness of breath: Details: 83-year-old lady, lifetime nonsmoker, with underlying AFib, followed for underlying moderate persistent asthma. She w continues on Advair 115 with reasonable control of her pulmonary symptoms. She does complain of worsening orthopnea and lower extremity edema. [facility] Medical History (Updated 12/10/23 @ 11:24 by Radha Elliott PA-C) History of upper gastrointestinal bleeding (~08/2021) History of TIA (transient ischemic attack) (~2018) Osteopenia (~2012) Bilateral pulmonary embolism (~06/2023) Atrial fibrillation with RVR Moderate persistent asthma Surgical History (Updated 12/10/23 @ 11:16 by Radha Elliott PA-C) History of basal cell carcinoma (BCC) excision History of esophagogastroduodenoscopy (EGD) History of colonoscopy Family History Father No problems noted. Mother Cerebral brain hemorrhage Social History Household Members: None Housing: House Do you presently have visiting nurse or other home services: No Alcohol intake: current Alcohol intake frequency: a few times a month Patient Tobacco Use Status: Never used Tobacco e-Cigarette/Vaping Use: Never Used Second Hand Smoke Exposure: Yes Advance Directives Date on File: 09/15/21 service: No Current occupational status: retired Cognitive needs: No Hearing needs: No Vision needs: Yes Review of Systems Const Denies daytime sleepiness, Denies excessive sweating, Denies fatigue, Denies fever(s), Denies lethargy, Denies malaise, Denies night sweats, Denies snoring and Denies weight loss Eyes Denies blurry vision and Denies itchy eyes ENT Denies nasal congestion, Denies post nasal drip, Denies sinus pain, Denies sinus pressure and Denies other ( Thrush) Card Denies chest pain, Reports pedal edema, Denies dyspnea, Reports dyspnea on exertion, Reports orthopnea and Denies paroxysmal nocturnal dyspnea Resp Denies cough, Denies hemoptysis, Denies excessive phlegm production, Denies dyspnea, Reports dyspnea on exertion, Denies snoring and Denies wheezing GI Denies abdominal pain and Denies heartburn Musc Denies myalgias, Denies arthralgias and Denies joint swelling Skin/Breast Denies rash Neuro Denies memory loss and Denies seizure-like activity Psych Denies abnormal sleep pattern, Denies anxiety and Denies memory loss Endo Denies excessive sweating, Denies fatigue and Denies heat intolerance Deonte/Lymph Denies easy bruising Aller/Immun Denies itchy eyes, Denies seasonal rhinorrhea and Denies wheezing Physical Exam Vital Signs: Last Vital Signs Pulse 82 12/10/23 11:29 BP 128/64 12/10/23 11:29 Pulse Ox 96 12/10/23 11:29 Oxygen Delivery Method Room Air 12/10/23 11:29 BMI result Body Mass Index 33.3 Const General: no acute distress and alert Nutritional Appearance: not obese Orientation/consciousness: Other orientation findings ( oriented) HEENT Head: Yes atraumatic Eyes General: appearance normal, both eyes and all related structures Sclerae: sclerae normal EOM: EOMs intact bilaterally Neck Neck: Yes supple Lymphatic: no lymphadenopathy noted Resp Effort & Inspection: normal respiratory effort and no use of accessory muscles Auscultation: clear to auscultation bilaterally Cardio Rate: regular rate Rhythm: regular rhythm Heart sounds: no gallops, no murmurs and no rubs Skin General skin exam: other ( warm) Extrem General: No clubbing, No cyanosis and Yes edema (2+ bilateral) Assessment & Plan Assessment & Plan (1) Dyspnea on exertion: Code(s): R06.09 - Other forms of dyspnea Category: Medical Plan: Now with worsening orthopnea lower extremity edema, will start on Lasix 40 mg daily. (2) Moderate persistent asthma: Code(s): J45.40 - Moderate persistent asthma, uncomplicated Category: Medical Qualifiers: Asthma complication type: uncomplicated Qualified Code(s): J45.40 - Moderate persistent asthma, uncomplicated Plan: Well controlled on current regimen of Advair and albuterol MDI. Continue current regimen. Medications: New furosemide 40 mg PO QAM 30 tabs 6RF Discontinued furosemide (Lasix) Discontinued Reason: Doctor's Order 20 mg PO QAM 7 tabs 0RF Coding Level of Care Code Est Pt Level 4 (71021) Complex EM visit Add On G2211 Diagnoses Dyspnea on exertion R06.09 Moderate persistent asthma without complication J45.40 Asthma complication type: uncomplicated
== END 2023-12-10 12:10 | disposition home or self-care (01) ==
PROVIDERS: PCP Internal Medicine; Visit Provider Internal Medicine Pulmonary Disease
DX: R06.09 Other forms of dyspnea (principal); J45.40 Moderate persistent asthma, uncomplicated
CPT/HCPCS: 99214; G2211

== ENCOUNTER 2023-12-10 11:27 | Outpatient (REF) | payer MEDICARE, SELFPAY ==
[2023-12-10 13:01] LABS: MANUAL DIFF FLAG NO
[2023-12-10 13:29] LABS: Basophils Absolute Auto 0.1 X10*3/uL (0.0-0.2); Basophils Percent Auto 0.8 % (0-2); Eosinophils Absolute Auto 0.1 X10*3/uL (0.0-0.4); Eosinophils Percent Auto 1.9 % (0-4); Hematocrit 33.6 % (37.0-47.0); Hemoglobin 10.3 g/dl (12.0-16.0); Imm Gran Abs Auto 0.02 X10*3/uL (0.00-0.03); Imm Gran Pct Auto 0.3 % (0.0-0.4); Lymphocytes Absolute Auto 0.8 X10*3/uL (1.2-4.9); Lymphocytes Percent Auto 13.3 % (20-40); Mean Corpuscular HGB Conc 30.7 g/dl (31.0-35.0); Mean Corpuscular Hemoglobin 26.8 pg (27.0-33.0); Mean Corpuscular Volume 87.3 fL (80.0-98.0); Mean Platelet Volume 10.8 fL (9.4-12.3); Monocytes Absolute Auto 0.7 X10*3/uL (0.1-1.2); Monocytes Percent Auto 11.5 % (2-11); Neutrophils Absolute Auto 4.6 x10*3/uL (2.0-8.3); Neutrophils Percent Auto 72.2 % (45-73); Platelet Count 294 X10*3/uL (160-400); Red Blood Count 3.85 X10*6/uL (4.20-5.50); Red Cell Distribution Width 15.5 % (11.0-16.0); White Blood Count 6.3 X10*3/uL (4.8-10.8)
[2023-12-10 14:13] LABS: Alanine Aminotransferase 16 U/L (0-31); Albumin Level 4.1 g/dL (3.5-5.0); Alkaline Phosphatase 79 U/L (39-117); Anion Gap 11 (12-20); Aspartate Amino Transferase 31 U/L (5-31); Bilirubin Total 0.4 mg/dL (0.0-1.0); Blood Urea Nitrogen 17 mg/dL (9-16); Calcium 9.4 mg/dL (8.4-10.2); Carbon Dioxide 31 mmol/L (22-29); Chloride 103 mmol/L (96-108); Estimated Glomerular Filt Rate > 60; Glucose Random 99 mg/dL (60-115); Potassium 4.4 mmol/L (3.3-5.1); Sodium 141 mmol/L (135-145); Total Protein 6.5 g/dL (6.5-8.0)
[2023-12-10 14:15] LABS: B Type Natriuretic Peptide 103 pg/mL (<100)
== END 2023-12-10 11:28 | disposition home or self-care (01) ==
LOC: HO.LAB 11:27
PROVIDERS: PCP Internal Medicine; Referring Provider Internal Medicine; Visit Provider Internal Medicine Pulmonary Disease
DX: I26.99 Other pulmonary embolism without acute cor pulmonale (principal); N32.81 Overactive bladder; E78.9 Disorder of lipoprotein metabolism, unspecified; F41.8 Other specified anxiety disorders; K21.9 Gastro-esophageal reflux disease without esophagitis; I89.0 Lymphedema, not elsewhere classified; I48.91 Unspecified atrial fibrillation; J45.40 Moderate persistent asthma, uncomplicated; R06.01 Orthopnea; R60.0 Localized edema; R06.09 Other forms of dyspnea; F09 Unspecified mental disorder due to known physiological condition
CPT/HCPCS: 36415; 80053; 83880; 85025; 99212

== ENCOUNTER 2024-02-02 13:51 | Outpatient (AMB) | payer MEDICARE, SELFPAY ==
--- NOTE | 2024-02-02 13:52 | MHC.OFFVIS ---
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 Accompanied by: Self / Same As Patient Allergies doxycycline Allergy (Mild, Verified 11/03/23 15:18) Rash lorazepam Allergy (Unknown, Verified 11/03/23 15:18) unknown pantoprazole Allergy (Unknown, Verified 11/03/23 15:18) NAUSEA amoxicillin [AMOXICILLIN] Adverse Reaction (Intermediate, Verified 11/03/23 15:18) NAUSEA/VOMITING Medication List - Last Reconciled 02/02/24 by Eran Butler MD [Bilateral Velcro based compression garments-compression class 20-30 As directed] citalopram 20 mg PO DAILY 90 days digoxin 125 mcg PO MOWEFR 90 days fluticasone propion-salmeterol 115-21 mcg/actuation (Advair HFA) 2 puffs inhalation Q12H fluticasone propionate 50 mcg/actuation 1 spray intranasal DAILY 30 days furosemide 40 mg PO QAM levofloxacin 500 mg PO DAILY 5 days memantine 5 mg PO BID metoprolol succinate ER 50 mg See Protocol PO BID omeprazole 40 mg PO DAILY rivaroxaban 20 mg PO DAILY rosuvastatin 20 mg PO DAILY HPI Comments Details: Pleasant 83-year-old female here for follow-up. She has background history of permanent atrial fibrillation. She was previously managed with the rate control strategy. She had GI bleed but recovered and has been on Xarelto and stable on the medications. She has some dyspnea on exertion. She has background of lung disease too. Taking her medications regularly. Her blood pressure in the office is elevated. EKG is showing atrial fibrillation as before. She has no palpitations or any other symptoms. Her last LV assessment was in 2020 when the LV function was normal. 09/08/2023: She is here for follow-up. In 07/12/2023 she presented to [facility] with shortness of breath and was diagnosed with bilateral pulmonary embolism. It appears she was missing her rivaroxaban doses and that may have played a role in this presentation. She has been on rivaroxaban 20 mg after 50 mg twice a day dosing for 21 days. 02/02/2024: She is here for follow-up. She is been doing well from a breathing point of view. Denying any chest pain or shortness of breath. Her main complaint is leg edema. She has known lymphedema but also has some pitting edema present. She is saying she has not been using Lasix because it was causing her to urinate a lot. [facility] Medical History (Updated 02/02/24 @ 16:19 by Eran Butler MD) History of upper gastrointestinal bleeding (~08/2021) History of TIA (transient ischemic attack) (~2018) Osteopenia (~2012) Bilateral pulmonary embolism (~06/2023) Atrial fibrillation with RVR Moderate persistent asthma Surgical History History of basal cell carcinoma (BCC) excision History of esophagogastroduodenoscopy (EGD) History of colonoscopy Family History Father No problems noted. Mother Cerebral brain hemorrhage Social History Household Members: None Housing: House Do you presently have visiting nurse or other home services: No Alcohol intake: current Alcohol intake frequency: a few times a month Patient Tobacco Use Status: Never used Tobacco e-Cigarette/Vaping Use: Never Used Second Hand Smoke Exposure: Yes Advance Directives Date on File: 09/15/21 service: No Current occupational status: retired Cognitive needs: No Hearing needs: No Vision needs: Yes Review of Systems Const Denies chills, Denies fatigue, Denies fever(s), Denies frequent falls, Denies weakness, Denies weight gain and Denies weight loss ENT Denies dizziness Card Denies chest pain, Denies leg edema, Denies lightheadedness, Denies palpitations, Denies dyspnea and Denies dyspnea on exertion Resp Denies cough, Denies dyspnea and Denies dyspnea on exertion GI Denies hematochezia Musc Denies abnormal gait, Denies muscle weakness, Denies numbness, Denies radiating pain into limb and Denies tingling Neuro Denies abnormal gait, Denies dizziness, Denies frequent falls, Denies numbness, Denies tingling and Denies weakness Endo Denies fatigue and Denies palpitations Physical Exam Vital Signs: Last Vital Signs Pulse 97 02/02/24 13:53 BP 130/70 02/02/24 13:53 BMI result Body Mass Index 32.9 Last Vital Signs Temp 98.4 F 07/17/23 07:22 Pulse 90 07/17/23 09:24 Resp 20 07/17/23 09:24 BP 126/83 07/17/23 08:49 Pulse Ox 97 07/17/23 07:22 O2 Del Method Room Air 07/17/23 07:22 O2 Flow Rate 2 07/13/23 10:18 BMI result Body Mass Index 32.8 GENERAL APPEARANCE: in no acute distress, pleasant. NECK: no carotid bruit, no jugular venous distention. SKIN: no suspicious lesions, warm and dry. HEART: no murmurs, irregular rate and rhythm. LUNGS: clear to auscultation bilaterally. ABDOMEN: soft, nontender. EXTREMITIES: 1 to 2+ edema. PERIPHERAL PULSES: equal. NEUROLOGIC: No gross deficits, AAO X 3 Assessment & Plan Assessment & Plan (1) Chronic a-fib: Comment: On stephanie Code(s): I48.20 - Chronic atrial fibrillation, unspecified Category: Medical (2) Peripheral edema: Code(s): R60.0 - Localized edema Category: Medical Plan [age] year female who is here for follow-up. She has background of permanent atrial fibrillation with recent bilateral pulmonary embolism and has been on Eliquis. Overall stable. She has lower extremity pitting edema on background of lymphedema. She is supposed to be on Lasix 40 mg daily but has not been taking it. I have advised her to restart the Lasix. Hopefully this will improve the pitting edema. She is going to [place] for lymphedema care. Thank you for allowing me to participate in the care of your patient. Please feel free to contact me if you have any questions. Coding Level of Care Code Est Pt Level 4 (41174) Diagnoses Chronic a-fib I48.20 Peripheral edema R60.0
[2024-02-02 13:53] VITALS: BP 130/70; PULSE 97; BMI 32.9
--- OUTSIDE RECORDS SUMMARY | 2024-02-03 02:36 | XMS_ITS ---
Author Organization [facility] Address [address] [place] [address] Care Team Providers Care Remote Sensing Specialist Name Role Phone Cesar ENGLISH, Asma Primary Care Provider Aman Kohler Unavailable [phone] REASON FOR VISIT Painful nail(s) aggrevated by shoes and causing difficulty standing/walking. Medications Medication SIG (Take, Route, Frequency, Duration) Notes Start Date End Date Status AmLactin 12 % 1 application to aff ected area Externally Twice a day to feet for 30 days Active Encounters Encounter Location Date Provider Diagnosis [facility] [address] [address] 10/23/2022 Aman Agrawal Tinea unguium B35.1 ; Other viral warts B07.8 ; Pain in left foot M79.672 ; Pain in right foot M79.671 ; Pain in right toe(s) M79.674 ; Pain in left toe(s) M79.675 ; Unspecified atherosclerosis of [place] arteries of extremities, bilateral legs I70.203 ; Lymphedema I89.0 and Xerosis cutis L85.3 Assessments Encounter Date Diagnosis (ICD Code) Assessment Notes Treatment Notes Treatment Clinical Notes Section Notes 10/23/2022 Tinea unguium (ICD-10 - B35.1) 10/23/2022 Other viral warts (ICD-10 - B07.8) 10/23/2022 Pain in left foot (ICD-10 - M79.672) 10/23/2022 Pain in right foot (ICD-10 - M79.671) 10/23/2022 Pain in right toe(s) (ICD-10 - M79.674) 10/23/2022 Pain in left toe(s) (ICD-10 - M79.675) 10/23/2022 Unspecified atherosclerosis of [place] arteries of extremities, bilateral legs (ICD-10 - I70.203) 10/23/2022 Lymphedema (ICD-10 - I89.0) 10/23/2022 Xerosis cutis (ICD-10 - L85.3) Plan Of Treatment Medication Medication Name Sig Start Date Stop [...] as necessary. Patient chooses, no pharmaceutical tx (69833) Keratoma Treatment Parring or Cutting o f Benign Hyperkeratotic Lesion(s) 28329 ( >4 Lesions) - The Benign hyperkeratotic lesions, as described above were pared, and/or cut utilizing a sterile #15 blade, tissue nippers, and/or dremel, Q8 Progress Notes * Madelyn HANEY BDOB:[birth year] (83 yo F)Acc No.[id number]:10/23/2022 Progress Note Patient:?Kayce HANEY B Provider:?Aman Agrawal DPM :1940???Age:81 Y???Sex:Female D ate:10/23/2022 Address:[address] [place], [place] [id number] Pcp:Kallie Guerrero MD Subjective: * Chief Complaints: * ???1. Painful nail(s) aggrev ated by shoes and causing difficulty standing/walking.. * HPI: ???Painful Nails:?Pt States Last PCP Visit:?Date:?05/25/2022 ???Skin problems:?Nature:?dryness.?Location:?B/L , Forefoot, Heel/Rearfoot, Ankle.?Duration:?several months.?Onset/Cause:?unknown.? * ROS:?General/Constitutional:?Nausea?denies.?Vomiting?denies.?Hunger Thirst?denies.?Loss appetite?denies.?Chills?denies.?Fatigue?denies.?Fever?denies.?Night Sweats?denies.?Unexplained weight loss?denies.?Unexplained weight gain?denies.?HEENTM:?Dentures?denies.?Dizziness?denies.?Glasses/contacts?admits.?Retinopathy?de nies.?Blurred/double vision?denies.?TMJ?denies.?Discharge/drainage?denies.?Implants?denies.?Sore throat?denies.?Dental implants?denies.?Hard of hearing ?denies.?Difficulty chewing/swallowing/speaking?denies.?Nose bleeds?denies.?Sore mouth?denies.?Respiratory:?On Oxygen?denies.?Pneumonia/pleurisy?denies.?Bronchitis?denies.?Emphysema?denies.?C oughing?denies.?Cough blood?denies.?Shortness of breath?denies.?Wheezing?denies.?Cardiovascular:?Pacemaker?denies.?MVP?denies.?WPW?denies.?CHF?denies.?Heart attack?denies.?Septal defect?denies.?Rapid beat?denies.?Chest pain ?denies.?Atrial Fib.?denies.?Murmur/Palpitations?denies.?Gastrointestinal:?Hemorrhoids?denies.?Stomach/Abdominal pain?denies.?Dark blood stool?denies.?Irritable bowel ?denies.?Constipation?denies.?Diarrhea?denies.?Hematology:?Swelling?admits.?Clots?denies.?Varicose Veins?denies.?Bruising?denies.?Bleeding problem?denies.?Genitourinary:?Blood urine?denies.?Frequent/Painfu/urination/bladder control?admits.?Kidney stones?denies.?Infection (UTI)?denies.?Nephropathy?denies.?sex trans dis (STD)?denies.?Prostate?denies.?Musculoskeletal:?Hammertoes?denies.?Bunions?denies.?Back Pain?denies.?Muscle Cramps/ Resting?denies.?Muscle cramps / walking?denies.?Generalized aches and pains?denies.?Weakness?denies.?Integ.:?Styles?denies.?Scars?denies.?Corns/calluses?admits.?Ingrown nails?denies.?Painful nails?denies.?Open Sores?denies.?Rashes?denies.?Neurologic:?Difficulty sleeping?denies.?Brain disorder?denies.?Numbness?denies.?Balance trouble?denies.?Confusion?denies.?Fainting/blackouts?denies.?Tingling?denies.?Tr emors?denies.? * Medical History:? Objective: * Vitals:? * Examination: ???General Examination: ?GENERAL APPEARANCE:?alert, well hydrated, in no distress , good attention to hygiene.?ORIENTED:?person,place, and time.?Vascular: ?DP PULSES(B):? 0/4, B/L.?PT PULSES(B):? 0/4, B/L.?TROPHIC CONDITION-TEXTURE/ELASTICITY/TURGOR/HAIR GROWTH(B):? decreased, B/L.?PIGMENTATION:? mottled, B/L, brawny, B/L.?EDEMA(C):? 2/4, B/L, Feet, Ankle(s), Leg(s).?Nails: ?NAILS are:?elongated,overgrown,dystrophic,greater than 3mm thick,discolored and friable with crumbly malodorous subungual debris, with pain on palpation, 1-5 B/L.?Neurological: ?SENSORY:?neurological exam is normal., pain sensation normal, vibration sensation intact, pinprick sensation is normal in the lower extremities, denies, tingling, burning, anesthesia, paresthesia, hyperesthesia.?Dermatologic: ?SKIN FINDINGS:? Skin exam reveals Keratotic lesion(s) located at, Medial plantar, TA, T5, SUB MTH (s), 1, Left, 2, 3, 4, B/L, Skin exam reveals Keratotic lesion(s) located at, Dorsal, PIPJ, T9, Skin shows sign(s) of, dryness, scaling, in a stocking fashion, no fissure(s) present, B/L.?Orthopedic: ?DIGITAL DEFORMITIES:?Digital contracture, MPJ Contracture/Dorsal sublux. 2nd left.? Assessment: * Assessment: 1.?Tinea unguium - B35.1 (Pr imary)???2.?Other viral warts - B07.8???3.?Pain in left foot - M79.672???4.?Pain in right foot - M79.671???5.?Pain in right toe(s) - M79.674???6.?Pain in left toe(s) - M79.675???7.?Unspecified atherosclerosis of [place] arteries of extremities, bilateral legs - I70.203???8.?Lymphedema - I89.0???9.?Xerosis cutis - L85.3??? Plan: * Treatment: * Procedures:?Debride Nail 6-10:?Nail debridement?Nail debridement performed extensively to reduce/remove overall nail length and girth, subungual debris, and necrotic tissue, by manual and electrical means with use of a nail nipper and/or dremel, to more viable healthy nail plate or bed tissue 6-10. Silver nitrate used for any petechial bleeding as necessary. Patient chooses, no pharmaceutical tx (52027).?Keratoma Treatment:?Parring or Cutting of Benign Hyperkeratotic Lesion(s)?49769 ( >4 Lesions) - The Benign hyperkeratotic lesions, as described above were pared, and/or cut utilizing a sterile #15 blade, tissue nippers, and/or dremel, Q8.? * Procedure Codes:?46005 DEBRI DE NAIL, 6 OR MORE, Modifiers: XS , 26589 TRIM SKIN LESIONS, OVER 4, Modifiers: Q8 * Follow Up:?3 Months * Images: * The named appointment provid er may or may not be the originator of this progress note, and it is not deemed complete until electronically signed by the appointment provider. Sign off status: Pending * Provider:?Aman Agrawal DPM Date:? 023 Generated for Bryon marin/Leonides/Oswald on:?02/03/2024 02:36 AM EST History and Physical Notes * HPI (History of Present Illness) Category Sub-Category Detail Notes Category Not es Painful Nails Pt States Last PCP Visit: Date:: 05/25/2022 Skin problems Nature: dryness Location: B/L , Forefoot, Heel /Rearfoot, Ankle Duration: several months Onset/Cause: unknown Examination Category Sub-Category Detail Notes Category Not es Neurological SENSORY: neurological exa m is normal., [...] ORIENTED: person,place, and ti me Vascular DP PULSES(B): 0/4, B/L PT PULSES(B): 0/4, B/L TROPHIC CONDITION-TEXTURE/EL ASTICITY/TURGOR/HAIR GROWTH(B): decreased, B/L EDEMA(C): 2/4, B/L, Feet, Ankl e(s), Leg(s) PIGMENTATION: mottled, B/L, brawny , B/L Nails NAILS are: elongated,overgr own,dystrophic,greater than 3mm thick,discolored and friable with crumbly malodorous subungual debris, with pain on palpation, 1-5 B/L
--- OUTSIDE RECORDS SUMMARY | 2024-02-03 02:37 | XMS_ITS | Patient Health Record ---
Author Organization [facility] Address [address] [place] [address] Care Team Providers Care Coke Crusher Operator Name Role Phone Cesar ENGLISH, [facility] Primary Care Provider Aman Kohler Unavailable [phone] Allergies Allergen (clinical drug ingredient) Drug/Non Drug Allergy documented on EMR Reaction Allergy Type Onset Date Status Wood wood (uncoded) nose gets stuff Allergy Active amoxicillin Amoxicillin Unknown Drug Allergy Act teena Powders Unknown Drug Allergy Active Reason For Referral No Information Medications Medication SIG (Take, Route, Frequency, Duration) [...] day to feet for 30 days Active Immunizations Vaccine Route Administration Date Status Comme nts Pneumococcal Unknown 04/24/2015 Administered Influenza Unknown 12/30/2018 Administered COVID-19 Moderna Vaccine Unknown 04/09/2020 Administere d COVID-19 Moderna Vaccine Unknown 05/07/2020 Administere d Social History Tobacco Use: Social History Observation Description Date Details (start date - stop date) Never Smoker NA - NA Tobacco Use/Smoking Question Answer Notes Are you a: nonsmoker Additional Findings: Tobacco Non-User Current no n-smoker Alcohol Screen Question Answer Notes Did you have a drink containing alcohol in the p ast year? Yes Points 0 Interpretation Negative Tobacco use other than smoking: Question Answer Notes Are you an other tobacco user? 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 ([id number]) Unspecified atherosclerosis of [place] arteries of extremities, bilateral legs (I70.203) Active confirmed Problem 164886588 Lymphedema (I89.0) Active confirmed Plan Of Treatment Pending Test Test Name Order Date X ray : Foot, left 2V 05/29/2011 X ray : Foot, right 2V 05/29/2011 *Liver Function Test (LFT) 09/27/2017 X ray : Foot, left 3V 06/05/2014 17856-FPYSXHL NAIL, 6 OR MORE 05/22/2014 35579-CIUJUNA NAIL, 6 OR MORE 04/21/2013 02934-QIHMXSE NAIL, 6 OR MORE 07/28/2013 10854-RBCWKDR NAIL, 6 OR MORE 11/14/2013 05555-VXFKWYN NAIL, 6 OR MORE 02/09/2014 56850-DWAARJM NAIL, 6 OR MORE 09/10/2014 24874-KXOWQMN NAIL, 6 OR MORE 11/30/2014 33214-JYHEVDL NAIL, 6 OR MORE 03/01/2015 35733-GVALFDK NAIL, 6 OR MORE 05/24/2015 22283-BQVEFLJ NAIL, 6 OR MORE 08/16/2015 10403-CDZDEZO NAIL, 6 OR MORE 11/22/2015 49004-PTDWCDB NAIL, 6 OR MORE 02/11/2016 34892-GAPTSQT NAIL, 6 OR MORE 04/05/2012 92272-OIDMFOM NAIL, 6 OR MORE 10/23/2011 17647-SLKPASU NAIL, 6 OR MORE 01/05/2012 64181-KWBVQHR NAIL, 6 OR MORE 07/12/2012 55311-SBYHRWE NAIL, 6 OR MORE 10/14/2012 27408-OBXCOPM NAIL, 6 OR MORE 01/13/2013 34219-KWKPDUT NAIL, 6 OR MORE 08/14/2011 21190-ATSNJSL NAIL, 6 OR MORE 05/29/2011 49554-RWZGLLF NAIL, 6 OR MORE 11/18/2010 29581-CUAVSBC NAIL, 6 OR MORE 09/27/2017 67340-OYDNLST NAIL, 6 OR MORE 05/29/2016 35943-TBOHTSO NAIL, 6 OR MORE 08/28/2016 33755-JMRRMOT NAIL, 6 OR MORE 12/08/2016 04631-JBGHTEO NAIL, 6 OR MORE 03/09/2017 78252-VBNUGFF NAIL, 6 OR MORE 12/28/2017 06179-Zpyb Destruction, -14 08/28/2016 84553-Laqs Destruction, -14 11/30/2014 10776-Cvar Destruction, -14 11/18/2010 20893-Ghzy Destruction, -14 08/14/2011 15450-Jncs Destruction, -14 02/27/2011 12011-Wnnq Destruction, -14 05/29/2011 04982-Ypbt Destruction, -14 01/13/2013 14093-Silp Destruction, -14 10/14/2012 93746-Lfhi Destruction, -14 07/12/2012 70912-Lcgq Destruction, -14 04/05/2012 94113-Eehd Destruction, -14 10/23/2011 28881-Jhtr Destruction, -14 01/05/2012 83621-Mcdw Destruction, -14 02/11/2016 86094-Pepd Destruction, -14 11/22/2015 00608-Qioh Destruction, -14 08/16/2015 91435-Wkrx Destruction, -14 05/24/2015 49777-Ulke Destruction, -14 03/01/2015 84621-Rzxm Destruction, -14 07/03/2014 01399-Yusk Destruction, -14 09/10/2014 60083-Cnyp Destruction, -14 07/28/2013 46496-Ejbg Destruction, -14 04/21/2013 73682-Arjv Destruction, 1-14 05/22/2014 69540-Mkih Destruction, 1-14 11/14/2013 55682-Zdpg Destruction, 1-14 02/09/2014 13812-Ircqmlwo Plate 07/03/2014 90508-Rpplxjpd Plate 05/22/2014 49759-Yjfylstt Plate 04/21/2013 62308-Ampzvuzu Plate 07/28/2013 12127-Adhwxcmy Plate 02/09/2014 89566-Tjtkveue Plate 11/14/2013 23081-Kxbqfimu Plate 09/10/2014 70824-Exjhjjdu Plate 11/30/2014 69070-Houcdkpx Plate 04/05/2012 90613-Usywjdsj Plate 10/23/2011 73991-Hbwusbov Plate 01/05/2012 90784-Mrbihmvt Plate 07/12/2012 54895-Lfsezmaa Plate 01/13/2013 03683-Qjriwawc Plate 05/29/2011 15501-Fbqybuxm Plate 02/27/2011 25687-Ahvwlige Plate 11/18/2010 35792-SBWWNEX SKIN/TISSUE 05/22/2014 83856-GRZDWUX SKIN/TISSUE 06/05/2014 72776-GPVD SKIN LESIONS, OVER 4 03/01/19 16 75460-VNBO SKIN LESIONS, OVER 4 05/24/19 16 96314-DOUO SKIN LESIONS, OVER 4 08/16/19 16 34155-LORQ SKIN LESIONS, OVER 4 11/22/19 16 91413-OXIO SKIN LESIONS, OVER 4 02/11/20 16 44026-TBBU SKIN LESIONS, OVER 4 09/28/19 18 27838-OYRE SKIN LESIONS, OVER 4 12/29/19 18 47871-ONMY SKIN LESIONS, OVER 4 12/09/19 17 09984-UMRT SKIN LESIONS, OVER 4 05/30/19 17 57722-KYLZ SKIN LESIONS, OVER 4 08/29/19 17 79551-QUKM SKIN LESIONS, OVER 4 06/16/19 18 35577-PREW SKIN LESIONS, OVER 4 03/09/19 18 82926-QVEX SKIN LESIONS, OVER 4 03/29/19 19 82498-CHVV SKIN LESIONS, OVER 4 07/09/19 19 00169-XUXI SKIN LESIONS, OVER 4 10/08/19 19 57207-XXXG SKIN LESIONS, OVER 4 01/07/20 19 76659-XJIG SKIN LESIONS, OVER 4 04/07/19 20 41579-UCXN SKIN LESIONS, OVER 4 06/30/19 20 01251-MOAX SKIN LESIONS, OVER 4 09/29/19 20 11616-KXXE SKIN LESIONS, OVER 4 12/29/19 20 21371-FRDP SKIN LESIONS, OVER 4 04/09/19 21 95507-EIRV SKIN LESIONS, OVER 4 07/06/19 21 22301-XYND SKIN LESIONS, OVER 4 10/05/19 21 79901-JBNM SKIN LESIONS, OVER 4 01/04/20 21 91191-QCHG SKIN LESIONS, OVER 4 04/04/19 22 78573- Nail Unit Biopsy 06/15/2017 Insurance Providers Payer Name Payer Address Payer Phone Subscriber Number Group Number Insured Name Patient Relationship to Insured Coverage Start Date Coverage End Date [employer] [address] [place] [address] [id number] Madelyn Clark Self - patient is the insured Medical (General) History Medical History History ICD Code asthma chicken pox hypertension measles mumps mumps measles hypertension chicken pox asthma Cellulitis Diverticulitis Surgical History Surgery Date(Month/Year) oral surgery 11/05 skin cancer removal forehead 11/28/13 Dental Implant 05/08/15 Hospitalization History Reason Date(Month/Year) [facility] [place] bleeding ulcers 09/08-09/14 C couldn't open her eye 07/2018 [facility] [place], Diverticulitis 07/16/16-07/20/16 [facility] for Dental implant 05/08/15 MRI, TIA, MRA 08/06 oral surgery 11/05
--- OUTSIDE RECORDS SUMMARY | 2024-02-03 02:37 | XMS_ITS ---
Author Organization [facility] Address [address] [place] [address] Care Team Providers Care Edger Tailer Name Role Phone Cesar ENGLISH, Asma Primary Care Provider Aman Kohler [phone] REASON FOR VISIT cx/NS 10/23 Encounters Encounter Location Date Provider Diagnosis [facility] [address] [place] [address] 10/23/2022 Aman Agrawal Plan Of Treatment No Information Progress Notes * Madelyn HANEY BDOB:[birth year] (81 yo F)Acc No.[id number]:10/23/2022 Patient:?Kayce Haney :1940???Age:81 Y???Sex:Female Address:[address] [place] [address] [place], [address] * true * Date:? Generated for Printi ng/Fachristophg/eTransmitting on:?02/03/2024 02:36 AM EST
== END 2024-02-02 14:47 | disposition home or self-care (01) ==
PROVIDERS: PCP Internal Medicine; Visit Provider Internal Medicine Cardiovascular Disease
DX: I48.20 Chronic atrial fibrillation, unspecified (principal); R60.0 Localized edema
CPT/HCPCS: 99214

== ENCOUNTER → 2024-02-02 13:51 | Outpatient (BNVA) | payer MEDICARE, SELFPAY | PROVIDERS: PCP Internal Medicine; Visit Provider Internal Medicine Cardiovascular Disease | DX: I48.20 Chronic atrial fibrillation, unspecified (principal); R60.0 Localized edema; Z79.01 Long term (current) use of anticoagulants | CPT/HCPCS: 99212 ==

== ENCOUNTER 2024-03-29 12:57 | Outpatient (AMB) | payer MEDICARE, SELFPAY ==
[2024-03-29 13:01] VITALS: BP 116/70; PULSE 93; RESP 15; TEMP 36.7; O2SAT 97; BMI 32.7
--- NOTE | 2024-03-29 13:01 | A.OFFPC_ITS ---
Vital Signs 03/29/24 13:01 Height 5 ft 7 in Weight 209 lb BMI 32.7 BP 116/70 Blood Pressure Location Lt brachial Position Sitting Respiration 15 Pulse 93 Pulse Source Pulse Oximeter Temp 98.1 F Temp Source Oral Pulse Oximetry (%) 97 Intake Visit Reasons: follow up Allergies doxycycline Allergy (Mild, Verified 03/29/24 13:03) Rash lorazepam Allergy (Unknown, Verified 03/29/24 13:03) unknown pantoprazole Allergy (Unknown, Verified 03/29/24 13:03) NAUSEA amoxicillin [AMOXICILLIN] Adverse Reaction (Intermediate, Verified 03/29/24 13:03) NAUSEA/VOMITING Medication List - Last Reconciled 03/29/24 by Kallie Guerrero MD [Bilateral Velcro based compression garments-compression class 20-30 As directed ] citalopram 40 mg PO ONCE digoxin 125 mcg PO MOWEFR 90 days fluticasone propion-salmeterol 115-21 mcg/actuation (Advair HFA) 2 puffs inhalation Q12H fluticasone propionate 50 mcg/actuation 1 spray intranasal DAILY 30 days furosemide 40 mg PO QAM memantine 5 mg PO BID metoprolol succinate ER 50 mg See Protocol PO BID omeprazole 40 mg PO DAILY rivaroxaban 20 mg PO DAILY rosuvastatin 20 mg PO DAILY Tobacco use date assessed: 03/29/24 Fall risk assessment: 2 + Falls in past year Last assessed Fall Risk: 03/29/24 Dental Screening Dental Screen Date: 03/29/24 Did you have a dental visit in the last 12 months?: Yes Did you have a dental problem in the last 6 months where you did not have access to dental care?: No Was dental information given to patient?: Patient has dentist HPI follow up HPI Details - The patient is an 83-year-old female p resenting with follow-up for anxiety and general health concerns. - Anxiety concerns have been managed wit h citalopram, recently increased from 20 mg to 40 mg, - Cardiovascular management includes fer oing therapy for atrial fibrillation with Digoxin 125 mcg daily, under cardiology guidance. - Respiratory concerns for asthma and CO PD are managed with Advair and oversight by a personal protection specialist . - She acknowledges memory impairment, po ssibly managed with memantine, leg lymphedema, stable - Current weight indicates obesity, exac erbated by inactivity and processed diet. Problem List - Anxiety - Atrial Fibrillation - Chronic Obstructive Pulmonary Disease - Asthma - Memory Impairment - Lymphedema - Overweight Patient Instructions - Have blood work taken today to reasses s hemoglobin and other vital levels. - Citalopram instructions: switch to pravin ing one 40 mg tablet instead of two 20 mg tablets. - The patient should maintain ongoing ap pointments with the relay technician and personal protection specialist as previously scheduled. - Receive a phone call at 9:00 AM the for lab results and hemoglobin level updates. - Follow up in six months or earlier thr ough a telephone visit if in-office visits become challenging. Review of Systems - General: No fever no chills - Neurological: No headaches no dizziness - Ear nose throat: No sore throat no hearing difficulty no ear pain - Cardiovascular: No syncope, no chest pain, no palpitations - Gastrointestinal: No nausea vomiting or diarrhea - Endocrine: No polyuria polydipsia no heat intolerance - Genitourinary: No dysuria , no blood in urine Physical Exam General: No acute distress HEENT: No acute findings Neck: Supple Respiratory system: Able to talk in full sentences, no audible wheeze, reports frequent coughing cardiovascular: S1-S2 Gastrointestinal: No pain, no constipation Extremities: Lymphedema bilateral MEDICAL ASSISTANT OB GYN: Alert awake oriented x3 motor sensory intact Skin: Normal turgor [facility] Medical History History of upper gastrointestinal bleeding (~08/2021) History of TIA (transient ischemic attack) (~2018) Osteopenia (~2012) Bilateral pulmonary embolism (~06/2023) Atrial fibrillation with RVR Moderate persistent asthma Surgical History History of basal cell carcinoma (BCC) excision History of esophagogastroduodenoscopy (EGD) History of colonoscopy Family History Father No problems noted. Mother Cerebral brain hemorrhage Social History Household Members: None Housing: House Do you presently have visiting nurse or other home services: No Alcohol intake: current Alcohol intake frequency: a few times a month Patient Tobacco Use Status: Never used Tobacco e-Cigarette/Vaping Use: Never Used Second Hand Smoke Exposure: Yes Advance Directives Date on File: 09/15/21 service: No Current occupational status: retired Cognitive needs: No Hearing needs: No Vision needs: Yes Questionnaire PHQ-9 Over the last 2 weeks, how often have you been bothered by any of the following problems? 1. Little interest or pleasure in doing things: several days 2. Feeling down, depressed, or hopeless: several days 3. Trouble falling or staying asleep, or sleeping too much: several days 4. Feeling tired or having little energy: several days 5. Poor appetite or overeating: several days 6. Feeling bad about yourself - or that you are a failure or have let yourself or your family down: not at all 7. Trouble concentrating on things, such as reading the newspaper or watching television: not at all 8. Moving or speaking so slowly that other people could have noticed. Or the opposite - being so fidgety or restless that you have been moving around a lot more than usual: not at all 9. Thoughts that you would be better off or of hurting yourself in some way: not at all Total score: 5 Depression Screening Interpretation: Negative Depression Screening Done: Yes 21410 - PHQ-9 Billing: Yes Source: Developed by Drs. Aries Romero, Kecia Pedraza, Eliezer Hu and colleagues, with an educational tiana from [employer]. Thrive Questionnaire Date Thrive assessed: 03/01/24 I am a: Patient What is your living situation today?: I have a steady place to live Within the past 12 months, did the food you bought not last and you didn't have the money to get more?: Never true Within the past 12 months, did you worry whether your food would run out before you got money to buy more?: Never true Do you have trouble paying for medicines?: No Do you have trouble getting transportation to medical appointments?: No Do you have trouble paying your heating and electricity bill?: No Do you have trouble taking care of your child, family member or friend?: No Do you have trouble with day-to-day activities such as bathing, preparing meals, shopping, managing finances, etc.?: No Are you currently unemployed and looking for a job?: No Are you interested in more education?: No Please select the resources that you would like help with: None Currently or been in a relationship where the following occur: No concerns reported THRIVE Score: 0 LORIE-7 AMB Questionnaire LORIE-7 Date LORIE - 7 assessed: 11/03/23 Source: Developed by Drs. Aries Romero, Kecia Pedraza, Eliezer Hu and colleagues, with an educational tiana from [facility]. Physical exam (Primary Care) Vital Signs: Last Vital Signs Temp 98.1 F 03/29/24 13:01 Pulse 93 03/29/24 13:01 Resp 15 03/29/24 13:01 BP 116/70 03/29/24 13:01 Pulse Ox 97 03/29/24 13:01 BMI result Body Mass Index 32.7 Tobacco/Smoking Status: Tobacco use Status Tobacco use date assessed 03/29/24 03/29/24 13:07 Patient Tobacco Use Status Never used Tobacco 03/29/24 13:04 e-Cigarette/Vaping Use Never Used 03/29/24 13:04 PHQ-9: PHQ-9 Score PHQ-9: Total score 5 03/29/24 13:26 Depression Screening Interpretation: Negative Thrive Assessment: Date of Thrive Assessment Date Thrive assessed 03/01/24 03/29/24 13:04 Currently or been in a relationship where the following occur: No concerns reported Coding Level of Care Code Est Pt Level 4 (29531) Complex EM visit Add On G2211 Diagnoses Depression with anxiety F41.8 Microcytic anemia D50.9 B12 deficiency E53.8 Hyperlipidemia, unspecified hyperlipidemia type E78.5 Hyperlipidemia type: unspecified Lymphedema I89.0 Moderate persistent asthma without complication J45.40 Asthma complication type: uncomplicated Permanent atrial fibrillation I48.21 Atrial fibrillation type: permanent Environmental allergies Z91.09 Chronic GERD K21.9 Mild cognitive disorder F09 Additional Codes PHQ-9 - 05937 - PHQ-9 Billing: Yes ([id number]) Assessment & Plan Assessment & Plan (1) Depression with anxiety: Code(s): F41.8 - Other specified anxiety disorders Category: Medical (2) Microcytic anemia: Code(s): D50.9 - Iron deficiency anemia, unspecified Category: Medical (3) B12 deficiency: Code(s): E53.8 - Deficiency of other specified B group vitamins Category: Medical (4) Hyperlipidemia: Code(s): E78.5 - Hyperlipidemia, unspecified Category: Medical Qualifiers: Hyperlipidemia type: unspecified Qualified Code(s): E78.5 - Hyperlipidemia, unspecified (5) Lymphedema: Code(s): I89.0 - Lymphedema, not elsewhere classified Category: Medical (6) Moderate persistent asthma: Code(s): J45.40 - Moderate persistent asthma, uncomplicated Category: Medical Qualifiers: Asthma complication type: uncomplicated Qualified Code(s): J45.40 - Moderate persistent asthma, uncomplicated (7) Atrial fibrillation: Code(s): I48.91 - Unspecified atrial fibrillation Category: Medical Qualifiers: Atrial fibrillation type: permanent Qualified Code(s): I48.21 - Permanent atrial fibrillation (8) Environmental allergies: Code(s): Z91.09 - Other allergy status, other than to drugs and biological substances Category: Medical (9) Chronic GERD: Code(s): K21.9 - Gastro-esophageal reflux disease without esophagitis Category: Medical (10) Mild cognitive disorder: Code(s): F09 - Unspecified mental disorder due to known physiological condition Category: Medical Plan - The patient is an 83-year-old female presenting with follow-up for anxiety and general health concerns. - Anxiety concerns have been managed with citalopram, recently increased from 20 mg to 40 mg, - Cardiovascular management includes ongoing therapy for atrial fibrillation with Digoxin 125 mcg daily, under cardiology guidance. - Respiratory concerns for asthma and COPD are managed with Advair and oversight by a personal protection specialist . - She acknowledges memory impairment, possibly managed with memantine, leg lymphedema, stable - Current weight indicates obesity, exacerbated by inactivity and processed diet. Problem List - Anxiety - Atrial Fibrillation - Chronic Obstructive Pulmonary Disease - Asthma - Memory Impairment - Lymphedema - Overweight Patient Instructions - Have blood work taken today to reassess hemoglobin and other vital levels. - Citalopram instructions: switch to taking one 40 mg tablet instead of two 20 mg tablets. - The patient should maintain ongoing appointments with the relay technician and personal protection specialist as previously scheduled. - Receive a phone call at 9:00 AM the following day for lab results and hemoglobin level updates. - Follow up in six months or earlier through a telephone visit if in-office visits become challenging. Orders: Orders Complete Blood Count Auto Diff Today D50.9 - Iron deficiency anemia, unspecified, E53.8 - Deficiency of other specified B group vitamins, E78.5 - Hyperlipidemia, unspecified, F09 - Unspecified mental disorder due to known physiological condition, F41.8 - Other specified anxiety disorders, F42.8 - Other obsessive-compulsive disorder, I48.21 - Permanent atrial fibrillation, I89.0 - Lymphedema, not elsewhere classified, J45.40 - Moderate persistent asthma, uncomplicated, K21.9 - Gastro-esophageal reflux disease without esophagitis, Z91.09 - Other allergy status, other than to drugs and biological substances LDL Cholesterol Direct Today D50.9 - Iron deficiency anemia, unspecified, E53.8 - Deficiency of other specified B group vitamins, E78.5 - Hyperlipidemia, unspecified, F09 - Unspecified mental disorder due to known physiological condition, F41.8 - Other specified anxiety disorders, F42.8 - Other obsessive- compulsive disorder, I48.21 - Permanent atrial fibrillation, I89.0 - Lymphedema, not elsewhere classified, J45.40 - Moderate persistent asthma, uncomplicated, K21.9 - Gastro-esophageal reflux disease without esophagitis, Z91.09 - Other allergy status, other than to drugs and biological substances TSH reflex Free T4 Today D50.9 - Iron deficiency anemia, unspecified, E53.8 - Deficiency of other specified B group vitamins, E78.5 - Hyperlipidemia, unspecified, F09 - Unspecified mental disorder due to known physiological condition, F41.8 - Other specified anxiety disorders, F42.8 - Other obsessive- compulsive disorder, I48.21 - Permanent atrial fibrillation, I89.0 - Lymphedema, not elsewhere classified, J45.40 - Moderate persistent asthma, uncomplicated, K21.9 - Gastro-esophageal reflux disease without esophagitis, Z91.09 - Other allergy status, other than to drugs and biological substances Ferritin Today D50.9 - Iron deficiency anemia, unspecified, E53.8 - Deficiency of other specified B group vitamins, E78.5 - Hyperlipidemia, unspecified, F09 - Unspecified mental disorder due to known physiological condition, F41.8 - Other specified anxiety disorders, F42.8 - Other obsessive-compulsive disorder, I48.21 - Permanent atrial fibrillation, I89.0 - Lymphedema, not elsewhere classified, J45.40 - Moderate persistent asthma, uncomplicated, K21.9 - Gastro-esophageal reflux disease without esophagitis, Z91.09 - Other allergy status, other than to drugs and biological substances Comprehensive Met. Panel Today D50.9 - Iron deficiency anemia, unspecified, E53.8 - Deficiency of other specified B group vitamins, E78.5 - Hyperlipidemia, unspecified, F09 - Unspecified mental disorder due to known physiological condition, F41.8 - Other specified anxiety disorders, F42.8 - Other obsessive- compulsive disorder, I48.21 - Permanent atrial fibrillation, I89.0 - Lymphedema, not elsewhere classified, J45.40 - Moderate persistent asthma, uncomplicated, K21.9 - Gastro-esophageal reflux disease without esophagitis, Z91.09 - Other allergy status, other than to drugs and biological substances Vitamin B12 Today D50.9 - Iron deficiency anemia, unspecified, E53.8 - Deficiency of other specified B group vitamins, E78.5 - Hyperlipidemia, unspecified, F09 - Unspecified mental disorder due to known physiological condition, F41.8 - Other specified anxiety disorders, F42.8 - Other obsessive- compulsive disorder, I48.21 - Permanent atrial fibrillation, I89.0 - Lymphedema, not elsewhere classified, J45.40 - Moderate persistent asthma, uncomplicated, K21.9 - Gastro-esophageal reflux disease without esophagitis, Z91.09 - Other allergy status, other than to drugs and biological substances Vitamin D 25-OH (D2 and D3) Today D50.9 - Iron deficiency anemia, unspecified, E53.8 - Deficiency of other specified B group vitamins, E78.5 - Hyperlipidemia, unspecified, F09 - Unspecified mental disorder due to known physiological condition, F41.8 - Other specified anxiety disorders, F42.8 - Other obsessive- compulsive disorder, I48.21 - Permanent atrial fibrillation, I89.0 - Lymphedema, not elsewhere classified, J45.40 - Moderate persistent asthma, uncomplicated, K21.9 - Gastro-esophageal reflux disease without esophagitis, Z91.09 - Other allergy status, other than to drugs and biological substances Medications: Changed From citalopram 40 mg PO ONCE To citalopram 40 mg PO ONCE 90 tabs 1RF
--- OUTSIDE RECORDS SUMMARY | 2024-03-29 14:17 | XMS_ITS | Clinical Summary ---
Author Organization [address] [facility] Address [address] [place] [address] Phone Care Team Providers Care Building Construction Foreman Name Role Phone Kallie Guerrero MD Primary Care Provider [phone] Active Problems Problem Noted Date Diagnosed Date Lymphatic edema 12/30/2023 Encounters Date Type Department Care Team Description 03/20/2024 11:00 AM EST Treatment [facility] [address] [place] [phone] Armando Jolleya P, OTR/L Lymphedema (Primary Dx) 03/20/2024 Plan of Care Documentation [facility] [address] [place] [phone] 03/15/2024 1:30 PM EST Treatment [facility] [address] [place] [phone] Armando Jolleya P, OTR/L Lymphovenous edema (Primary Dx) 02/09/2024 12:30 PM EST Treatment [facility] [address] [place] [phone] Armando Jolleya P, 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) 02/01/2024 1:30 PM EST Treatment [facility] [address] [place] [phone] Armando Jolleya P, 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) 01/26/2024 11:00 AM EST Treatment [facility] [address] [place] [address] [phone] Samantha Jolleyria P, 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) 01/18/2024 3:00 PM EST Treatment [facility] [address] [place] [address] [phone] Samantha Jolleyria P, 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) 01/10/2024 11:00 AM EST Treatment [facility] [address] [place] [address] [phone] Gitammyzen Sigrid P, 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); Lymphedema 01/03/2024 11:00 AM EST Treatment [facility] [address] [place] [address] [phone] Samantha Jolleyria P, 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) 12/30/2023 12:30 PM EST Treatment [facility] [address] [place] [address] [phone] Gijzen, Sigrid P, OTR/L Lymphovenous edema (Primary Dx) from Last 3 Months Social History Tobacco Use Types Packs/Day Years Used Date Smoking Tobacco: Never Assessed Sex and Gender Information Value Date Recorded Sex Assigned at Not on file Gender Identity Not on file Sexual Orientation Not on file Job Start Date Occupation Industry Not on file Not on file Not on file Plan of Treatment Upcoming Encounters Date Type Department Care Team (Late st Contact Info) Description 04/05/2024 3:00 PM EST Treatment [facility] [address] [place] [address] [phone] SedajArmando villaa P, OTR/L Health Maintenance Due Date Last Done Comments DTaP,Tdap,and Td Vaccines (1 - Tdap) 1959 RSV Immunization Patients 60+ Years Old (1 - 1-dose 75+ series) 2016 Cholesterol Screening (Lipid Panel) 01/25/2022 Depression Screening 01/25/2022 Medicare Annual Wellness Visit 01/25/2022 Osteoporosis Screening (Bone Density Screening) 01/25/2022 Social Influencers of Health Screening 01/25/2022 COVID-19 Vaccine ( season) 2023 03/24/2023, 12/06/2021, 12/16/2020, Additional history exists Falls Risk Assessment 12/29/2024 12/30/2023 Zoster Vaccines Completed 08/19/2021, 03/12/2021 Influenza Vaccine Completed 12/29/2023, , 01/12/2022, Additional history exists Pneumococcal Vaccine: 65+ Years Completed 12/29/2023, 04/24/2015 HIB Vaccines Aged Out No longer eligi ble based on patient's age to complete this topic HPV Vaccines Aged Out No longer eligi ble based on patient's age to complete this topic Hepatitis A Vaccines Aged Out No long er eligible based on patient's age to complete this topic Hepatitis B Vaccines Aged Out No long er eligible based on patient's age to complete this topic IPV Vaccines Aged Out No longer eligi ble based on patient's age to complete this topic MMR Vaccines Aged Out No longer eligi ble based on patient's age to complete this topic Meningococcal ACWY Vaccine Aged Out N o longer eligible based on patient's age to complete this topic RSV Immunization Patients Under 20 months Aged Out No longer eligible based on patient's age to complete this topic Varicella Vaccines Aged Out No longer eligible based on patient's age to complete this topic Goals Goal Patient Goal Type Associated Problems Recent Progress Patient-Stated? Author the legs to be better General Improving( 6:14 PM EST) Yes Sigrid Jolley, OTR/L Note: The legs not to be so swollen, to not feel so stiff and painfull and for them to look better, not have wounds 01/25 progressing; no wounds decreased volumes General Improving( 6:10 PM EST) Yes Sigrid Jolley, OTR/L Note: STG: Patient will have decreased volumes of at least 3% in both LE's 03/20/2024: From measured 01/02/2025 she lost volumes in both LE's R LE went from 596.5 cm to total circumferences of 582.7 cm which is a loss of 13.8 cm = 2.3% L LE went from 579.4 cm to total circumferences of 560.1 cm which is a loss of 19.3 cm = 3.33 % LTG's Patient will have decreased volumes of at least 5 % in both LE's <enter goal here> General Improving( 6:04 PM EST) Sigrid Broussard, OTR/L Note: STG's Patient reports decreased stiffness in her legs and she reports and demo increased ability to lift her legs in and out of her car 03/20 Patient reports less stiffness in her legs and demo increased ability to lift her legs on and off treatment table and she reports increased ability to lift them in and out of her care LTG's patient will present with increased ROM in her knees/ less stiffness in her legs and she demo increased ability to cross her legs to bjorn her shoes and socks lymph edema self management General On track(2024 6:13 PM EST) No Sigrid Jolley, OTR/L Note: 1 : Patient will be able to demo at least 3 exercises to increase lymph flow 03/20 goal has been met 2 LTG Patient will be independent in lymph edema management , she will have appropriate compression in place which she can bjorn/ doff / independent in HEP) 03/20/2024 Patient did order knee high compression stockings on line however she has been having a really hard time managing them . Therapist has introduced sock katelynn to assist with donning stockings . Patient will require practise A script and suggestions for velcro compression garments has been send to [employer] follow up Care Teams Building Construction Foreman Relationship Specialty Start Date End Date Kallie Guerrero MD [address] [place] [phone] PCP - General Internal Medicine 12/23/23
--- OUTSIDE RECORDS SUMMARY | 2024-03-29 14:17 | XMS_ITS | Encounter Summary ---
Author Organization [facility] Address [address] [place] [phone] Care Team Providers Care Ruffler Name Role Phone Kallie Guerrero MD Primary Care Provider [phone] Reason for Visit * Consultation (Routine) - Authorized Specialty Diagnoses / Procedures Referred By Elizabeth vazquez Referred To Contact Occupational Therapy Diagnoses Lymphedema Kallie Guerrero MD [address] [place] [address] [facility] Occupational Therapy [address] [place] [phone] Referral ID Status Reason Start Date Expiration Date Visits Requested Visits Authorized [id number] Authorized Specialty Services Required 12/22/2024 13 13 Encounter Details Date Type Department Care Team (Late st Contact Info) Description 03/20/2024 11:00 AM EST Treatment [facility] Occupational Therapy [address] [place] [phone] Sigrid Jolley OTR/L Lymphedema (Primary Dx) Social History Tobacco Use Types Packs/Day Years Used Date Smoking Tobacco: Never Assessed Sex and Gender Information Value Date Recorded Sex Assigned at Not on file Gender Identity Not on file Sexual Orientation Not on file Job Start Date Occupation Industry Not on file Not on file Not on file documented as of this encounter Progress Notes * KALI Rowe/Irish - 03/20/2024 11:00 AM EST Images from the original note were not included. [facility] - Outpatient OCCUPATIONAL THERAPY Progress Summary Date: 03/20/2024 Visit Number: 9 Patient Name: Madelyn Townsend : 1940 Age: 83 y.o. Gender: female Diagnosis: ICD-10-CM ICD-9-CM 1. Lymphedema I89.0 457.1 Date of Onset: 11/22/2023 Referring Provider: Kallie Guerrero MD Insurance: Payor: MEDICARE / Plan: MEDICARE PART A & B / Product Type: Medicare / Language: Speaks and understands Burkinan as preferred language with no fairmont gold attendant required Medications: No current outpatient medications on file prior to visit. No current facility-administered medications on file prior to visit. Allergies: has no allergies on file. Precautions: None stated SUBJECTIVE Subjective Report: I did wear those stockings but I am having a really hard time getting them on Pain: Pain in her right knee Both legs are less sensitive to touch OBJECTIVE Other Assessments: Left Lower Extremity Lymphedema L 2nd Toe Middle Phalange (cm): 6.6 cm L Metatarsal (cm): 23.5 cm L Arch (cm): 23.2 cm L Ankle (cm): 28.5 cm L 8 cm Above Ankle (cm): 27 cm L 16 cm Above Ankle (cm): 34 cm L 24 cm Above Ankle (cm): 42 cm L 32 cm Above Ankle (cm): 44 cm L Knee (cm): 43.5 cm L 40 cm Above Ankle (cm): 44.3 cm L 48 cm Above Ankle (cm): 53 cm L 56 cm Above Ankle (cm): 57 cm L 64 cm Above Ankle (cm): 62.5 cm L 72 cm Above Ankle (cm): 71 cm Total circumferences of left LE = 560.1 cm Right Lower Extremity Lymphedema R 2nd Toe Middle Phalange (cm): 6.6 cm R Metatarsal (cm): 23 cm R Arch (cm): 23 cm R Ankle (cm): 27.4 cm R 8 cm Above Ankle (cm): 26 cm R 16 cm Above Ankle (cm): 35.5 cm R 24 cm Above Ankle (cm): 43.8 cm R 32 cm Above Ankle (cm): 46.4 cm R Knee (cm): 47 cm R 40 cm Above Ankle (cm): 45 cm R 48 cm Above Ankle (cm): 55 cm R 56 cm Above Ankle (cm): 60 cm R 64 cm Above Ankle (cm): 69 cm R 72 cm Above Ankle (cm): 75 cm Total circumferences of R LE = 582.7 cm TREATMENT INTERVENTION Procedures: Manual therapy to consist of manual lymph drainage according to Dr. Albrecht method. Increased lymph flow through termini/ Profundus ( neck routine ), abdomen, B inguinal, drainage areas Stimulated lymph flow from B LE's into these drainage areas. Used increased manual therapy to address fibrosis in both lower legs Self care Re measured circumferences of both LE's Practised donning compression stockings using soft cloth sock aide and dycem Pain Reassessment: Patient tolerated session well and did not report new onset of pain Assessment/Response To Treatment: Good I like to use that soft cloth thing and that sticky thing, I think that will make it easier GOALS Goals Addressed This Visit's Progress <enter goal here> Improving STG's Patient reports decreased stiffness in her legs and she reports and demo increased ability tolift her legs in and out of her car 03/20 Patient reports less stiffness in her legs and demo increased ability to lift her legs on andoff treatment table and she reports increased ability to lift them in and out of her care LTG's patient will present with increased ROM in her knees/ less stiffness in her legs and she demoincreased ability to cross her legs to bjorn her shoes and socks decreased volumes (pt-stated) Improving STG: Patient will have decreased volumes of [...] at least 5 % in both LE's lymph edema self management On track 1 : Patient will be able to demo at least 3 exercises to increase lymph flow 03/20 goal has been met 2 LTG Patient will be independent in lymph edema management , she will have appropriate compressionin place which she can bjorn/ doff / independent in HEP) 03/20/2024 Patient did order knee high compression stockings on line however she has been having a really hard time managing them . Therapist has introduced sock katelynn to assist with donning stockings . Patient will require practise A script and suggestions for velcro compression garments has been send to [employer] follow up COMPLETED: skin integrity STG ; There will be no remaining open areas in both LE's , No weeping 01/25 Patient presents with increasing skin integrity ; no open areas and no weeping LTG; Patient will present with increased skin integrity and less sensitivity to touch LTG has been met ( 03/20/2024) the legs to be better (pt-stated) Improving The legs not to be so swollen, to not feel so stiff and painfull and for them to look better, not have wounds 01/25 progressing; no wounds Patient Education: Education provided: Yes Education Provided To: Patient utilizing Explanation and Demonstration mode(s) of education Response to Education: Good PLAN POC Development/Review: No Change in the Plan of Care; Participants: Patient Continue with CDT ( comprehensive decongestive therapy ) which includes manual therapy / self care and HEP 1 x week up till 1 Month To establish independent management of this chronic condition Total Treatment Time: 60 minutes TOTAL TREATMENT TIME: 60 Minutes Documentation completed by KALI Rowe/Irish documented in this encounter Plan of Treatment Upcoming Encounters Date Type Department Care Team (Late st Contact Info) Description 04/05/2024 3:00 PM EST Treatment [facility] Occupational Therapy [address] [place] [phone] Sigrid Jolley OTR/L documented as of this encounter Goals Goal Patient Goal Type Associated Problems Recent Progress Patient-Stated? Author the legs to be better General Improving( 6:14 PM EST) Yes Sigrid Jolley OTR/L Note: The legs not to be so swollen, to not feel so stiff and painfull and for them to look better, not have wounds 12/04 progressing; no wounds decreased volumes General Improving( [...] goal here> General Improving( 6:04 PM EST) No Sigrid Jolley, OTR/L Note: STG's Patient reports decreased stiffness [...] velcro compression garments has been send to [employer] follow up documented as of this encounter Visit Diagnoses Diagnosis Lymphedema- Primary Other noninfectious lymphedema documented in this encounter Care Teams Ruffler Relationship Specialty Start Date End Date Kallie Guerrero MD [address] [place] [phone] PCP - General Internal Medicine 12/23/23 documented as of this encounter
--- OUTSIDE RECORDS SUMMARY | 2024-03-29 14:17 | XMS_ITS | Encounter Summary ---
Author Organization [facility] Address [address] [place] [phone] Care Team Providers Care Grinder And Honer Operator Automatic Name Role Phone Kallie Guerrero MD Primary Care Provider [phone] Reason for Visit * Consultation (Routine) - Authorized Specialty Diagnoses / Procedures Referred By Elizabeth vazquez Referred To Contact Occupational Therapy Diagnoses Lymphedema Kallie Guerrero MD [address] [place] [address] [facility] Occupational Therapy [address] [place] [phone] Referral ID Status Reason Start Date Expiration Date Visits Requested Visits Authorized [id number] Authorized Specialty Services Required 12/22/2024 13 13 Encounter Details Date Type Department Care Team (Late st Contact Info) Description 03/15/2024 1:30 PM EST Treatment [facility] Occupational Therapy [address] [place] [phone] Sigrid Jolley OTR/L Lymphovenous edema (Primary Dx) Social History Tobacco Use Types Packs/Day Years Used Date Smoking Tobacco: Never Assessed Sex and Gender Information Value Date Recorded Sex Assigned at Not on file Gender Identity Not on file Sexual Orientation Not on file Job Start Date Occupation Industry Not on file Not on file Not on file documented as of this encounter Progress Notes * Sigrid Jolley OTR/Irish - 03/15/2024 1:30 PM EST [facility] - Outpatient OCCUPATIONAL THERAPY DAILY TREATMENT NOTE Date: 03/15/2024 Visit Number: 8 Patient Name: Madelyn Townsend : 1940 Age: 83 y.o. Gender: female Diagnosis: ICD-10-CM ICD-9-CM 1. Lymphovenous edema I89.0 457.1 Date of Onset: 11/22/2023 Referring Provider: Kallie Guerrero MD Insurance: Payor: MEDICARE / Plan: MEDICARE PART A & B / Product Type: Medicare / Language: Speaks and understands Lao as preferred language with no enrobing machine corder required Allergies: has no allergies on file. Precautions: None stated SUBJECTIVE Subjective Report: I really try with my legs but I have a hard time reaching my feet Pain: Patient reports pain in and around her right knee Skin of right lower leg is sensitive to touch OBJECTIVE [facility] 83 year old Ambulating independently Skin of both lower legs dry with hyper pigmentation Toenail fungus Visible edema in feet Wearing step in kind of shoes without socks TREATMENT INTERVENTION Procedures: Manual therapy to consist of manual lymph drainage according to Dr. Albrecht method. Increased lymph flow through termini/ Profundus ( neck routine ), abdomen, B inguinal, drainage areas Stimulated lymph flow from B LE's into these drainage areas. Used increased manual therapy to address fibrosis in both lower legs Self care Donned existing compression stockings ( patient purchased on line) Demo / practised use of sock katelynn/ dycem and step stool Patient will require practise to utilize any of these methods Pain Reassessment: My legs actually feel better with these socks on Assessment/Response To Treatment: Good Thanks my legs do feel better Patient Education: Education provided: Yes different options to done compression stockings Education Provided To: Patient utilizing Explanation and Demonstration mode(s) of education Response to Education: Good PLAN POC Development/Review: No Change in the Plan of Care; Participants: Patient Equipment Recommended: hyhybrid liners with velcro garments / sock aide ; Equipment Provided: none GOALS Improving skin; no open areas and no weeping , skin is less sensitive to touch Therapist did not receive recommended garments however she did order appropriate compression stockings on line Patient will need to practise to manage compression stockings with suggested methods/ adaptive devices Total Treatment Time: 60 minutes Documentation completed by KALI Rowe/L documented in this encounter Plan of Treatment Upcoming Encounters Date Type Department Care Team (Late st Contact Info) Description 04/05/2024 3:00 PM EST Treatment [facility] Occupational Therapy [address] [phone] Sigrid Jolley OTR/L documented as of this [...] management General On track(2024 6:13 PM EST) Sigrid Broussard, OTR/L Note: 1 : Patient will be [...] velcro compression garments has been send to [employer] follow up documented as of this encounter Visit Diagnoses Diagnosis Lymphovenous edema- Primary documented in this encounter Care Teams Grinder And Honer Operator Automatic Relationship Specialty Start Date End Date Kallie Guerrero MD [address] [place] [phone] PCP - General Internal Medicine 12/23/23 documented as of this encounter
--- OUTSIDE RECORDS SUMMARY | 2024-03-29 14:17 | XMS_ITS | Encounter Summary ---
Author Organization [facility] Address [address] [place] [address] Care Team Providers Care Arc Welder Name Role Phone Kallie Guerrero MD Primary Care Provider [phone] Encounter Details Date Type Department Care Team (Late st Contact Info) Description 03/20/2024 Plan of Care Documentation [facility] Occupational Therapy [address] [place] [phone] Social History Tobacco Use Types Packs/Day Years Used Date Smoking Tobacco: Never Assessed Sex and Gender Information Value Date Recorded Sex Assigned at Not on file Gender Identity Not on file Sexual Orientation Not on file Job Start Date Occupation Industry Not on file Not on file Not on file documented as of this encounter Plan of Treatment Upcoming Encounters Date Type Department Care Team (Late st Contact Info) Description 04/05/2024 3:00 PM EST Treatment [facility] Occupational Therapy [address] [place] [phone] Sigrid Jolley P, OTR/L documented as of this encounter Goals Goal Patient Goal Type Associated Problems Recent Progress Patient-Stated? Author the legs to be better General Improving( 6:14 PM EST) Yes Sigrid Jolley P, OTR/L Note: The legs not to be so swollen, to not feel so stiff and painfull and for them to look better, not have wounds 01/25 progressing; no wounds decreased volumes General Improving( 6:10 PM EST) Yes Sigrid Jolley P, OTR/L Note: STG: Patient will have decreased [...] On track(2024 6:13 PM EST) No Sigrid Jolley P, OTR/L Note: 1 : Patient will be [...] velcro compression garments has been send to [employer] follow up documented as of this encounter Visit Diagnoses Not on filedocumented in this encounter Care Teams Arc Welder Relationship Specialty Start Date End Date Kallie Guerrero MD [address] [place] [phone] PCP - General Internal Medicine 12/23/23 documented as of this encounter
== END 2024-03-29 13:26 | disposition home or self-care (01) ==
PROVIDERS: PCP Internal Medicine; Visit Provider Internal Medicine
DX: I48.21 Permanent atrial fibrillation (principal); F41.8 Other specified anxiety disorders; D50.9 Iron deficiency anemia, unspecified; E53.8 Deficiency of other specified B group vitamins; E78.5 Hyperlipidemia, unspecified; I89.0 Lymphedema, not elsewhere classified; J45.40 Moderate persistent asthma, uncomplicated; Z91.09 Other allergy status, other than to drugs and biological substances; K21.9 Gastro-esophageal reflux disease without esophagitis; F09 Unspecified mental disorder due to known physiological condition

== ENCOUNTER 2024-03-29 12:57 | Outpatient (REF) | payer MEDICARE, SELFPAY ==
--- OUTSIDE RECORDS SUMMARY | 2024-03-29 14:49 | XMS_ITS | Encounter Summary ---
Author Organization [facility] Address [address] [place] [address] Care Team Providers Care Industrial Relations Worker Name Role Phone Kallie Guerrero MD Primary Care Provider [phone] Encounter Details Date Type Department Care Team (Late st Contact Info) Description 03/20/2024 Plan of Care Documentation [facility] Occupational Therapy [address] [place] [phone] Social History Tobacco Use Types Packs/Day [...] Info) Description 04/05/2024 3:00 PM EST Treatment [facility] Occupational Therapy [address] [place] [phone] Sigrid Jolley P, OTR/L documented as of [...] velcro compression garments has been send to [employer] follow up documented as of this encounter Visit Diagnoses Not on filedocumented in this encounter Care Teams Industrial Relations Worker Relationship Specialty Start Date End Date Kallie Guerrero MD [address] [place] [phone] PCP - General Internal Medicine 12/23/23 documented as of this encounter
--- OUTSIDE RECORDS SUMMARY | 2024-03-29 14:49 | XMS_ITS | Encounter Summary ---
Author Organization [facility] Address [address] [place] [phone] Care Team Providers Care Annual Giving Officer Name Role Phone Kallie Guerrero MD Primary Care Provider [phone] Reason for Visit * Consultation (Routine) - Authorized Specialty Diagnoses / Procedures Referred By Elizabeth vazquez Referred To Contact Occupational Therapy Diagnoses Lymphedema Kallie Guerrero MD [address] [place] [address] [facility] Occupational Therapy [address] [place] [phone] Referral ID Status Reason Start Date Expiration Date Visits Requested Visits Authorized [id number] Authorized Specialty Services Required 12/22/2024 13 13 Encounter Details Date Type Department Care Team (Late st Contact Info) Description 03/20/2024 11:00 AM EST Treatment [facility] Occupational Therapy [address] [place] [phone] Sigrid Jolley OTR/L Lymphedema (Primary Dx) [...] from the original note were not included. [facility] - Outpatient OCCUPATIONAL THERAPY Progress Summary Date: 03/20/2024 Visit Number: 9 Patient Name: Madelyn Townsend : 1940 Age: 83 y.o. Gender: female Diagnosis: ICD-10-CM ICD-9-CM 1. Lymphedema I89.0 457.1 Date of Onset: 11/22/2023 Referring Provider: Kallie Guerrero MD Insurance: Payor: MEDICARE / Plan: MEDICARE PART A & B / Product Type: Medicare / Language: Speaks and understands Solomon Islander as preferred language with no naumkeag operator required Medications: No current outpatient medications on [...] velcro compression garments has been send to [employer] follow up COMPLETED: skin integrity STG ; [...] Info) Description 04/05/2024 3:00 PM EST Treatment [facility] Occupational Therapy [address] [place] [phone] Sigrid Jolley OTR/L documented as of this [...] velcro compression garments has been send to [employer] follow up documented as of this encounter Visit Diagnoses Diagnosis Lymphedema- Primary Other noninfectious lymphedema documented in this encounter Care Teams Annual Giving Officer Relationship Specialty Start Date End Date Kallie Guerrero MD [address] [place] [phone] PCP - General Internal Medicine 12/23/23 documented as of this encounter
--- OUTSIDE RECORDS SUMMARY | 2024-03-29 14:50 | XMS_ITS | Clinical Summary ---
Author Organization [facility] Address [address] [place] [address] Phone Care Team Providers Care Patcher Helper Name Role Phone Kallie Guerrero MD Primary Care Provider [phone] Active Problems Problem Noted Date Diagnosed Date Lymphatic edema 12/30/2023 Encounters Date Type Department Care Team Description 03/20/2024 11:00 AM EST Treatment [facility] Occupational Therapy [address] [place] [phone] Armando Jolleya P, OTR/L Lymphedema (Primary Dx) 03/20/2024 Plan of Care Documentation [facility] Occupational Therapy [address] [place] [phone] 03/15/2024 1:30 PM EST Treatment [facility] Occupational Therapy [address] [place] [phone] Armando Jolleya P, OTR/L Lymphovenous edema (Primary Dx) 02/09/2024 12:30 PM EST Treatment [facility] Occupational Therapy [address] [place] [phone] Armando Jolleya P, 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) 02/01/2024 1:30 PM EST Treatment [facility] Occupational Therapy [address] [place] [phone] Armando Jolleya P, 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) 01/26/2024 11:00 AM EST Treatment [facility] Occupational Therapy [address] [place] [phone] Samantha Jolleyria P, 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) 01/18/2024 3:00 PM EST Treatment [facility] Occupational Therapy [address] [place] [phone] Samantha Jolleyria P, 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) 01/10/2024 11:00 AM EST Treatment [facility] Occupational Therapy [address] [place] [phone] Gitammyzen Sigrid P, 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); Lymphedema 01/03/2024 11:00 AM EST Treatment [facility] Occupational Therapy [address] [place] [phone] Samantha Jolleyria P, 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) 12/30/2023 12:30 PM EST Treatment [facility] Occupational Therapy [address] [place] [phone] Gijzen, Sigrid P, OTR/L Lymphovenous edema (Primary [...] Info) Description 04/05/2024 3:00 PM EST Treatment [facility] Occupational Therapy [address] [place] [phone] SedajArmando villaa P, OTR/L Health Maintenance Due [...] velcro compression garments has been send to [employer] follow up Care Teams Patcher Helper Relationship Specialty Start Date End Date Kallie Guerrero MD [address] [place] [phone] PCP - General Internal Medicine 12/23/23
--- OUTSIDE RECORDS SUMMARY | 2024-03-29 14:50 | XMS_ITS | Encounter Summary ---
Author Organization [facility] Address [address] [place] [phone] Care Team Providers Care Foot Roentgenologist Name Role Phone Kallie Guerrero MD Primary Care Provider Reason for Visit * Consultation (Routine) - Authorized Specialty Diagnoses / Procedures Referred By Elizabeth vazquez Referred To Contact Occupational Therapy Diagnoses Lymphedema Kallie Guerrero MD [address] [place] [phone] [facility] Occupational Therapy [address] [place] [phone] Referral ID Status Reason Start Date Expiration Date Visits Requested Visits Authorized [id number] Authorized Specialty Services Required 12/22/2024 13 13 Encounter Details Date Type Department Care Team (Late st Contact Info) Description 03/15/2024 1:30 PM EST Treatment [facility] Occupational Therapy [address] [place] [phone] Sigrid Jolley OTR/L Lymphovenous edema (Primary [...] Jolley OTR/Irish - 03/15/2024 1:30 PM EST [facility] - Outpatient OCCUPATIONAL THERAPY DAILY TREATMENT NOTE Date: 03/15/2024 Visit Number: 8 Patient Name: Madelyn Townsend : 1940 Age: 83 y.o. Gender: female Diagnosis: ICD-10-CM ICD-9-CM 1. Lymphovenous edema I89.0 457.1 Date of Onset: 11/22/2023 Referring Provider: Kallie Guerrero MD Insurance: Payor: MEDICARE / Plan: MEDICARE PART A & B / Product Type: Medicare / Language: Speaks and understands Croatian as preferred language with no prototype technician required Allergies: has no allergies on file. Precautions: None stated SUBJECTIVE Subjective Report: I really try with my legs but I have a hard time reaching my feet Pain: Patient reports pain in and around her right knee Skin of right lower leg is sensitive to touch OBJECTIVE [place] 83 year old Ambulating independently Skin of [...] 04/05/2024 3:00 PM EST Treatment [facility] Occupational Therapy [address] [phone] Sigrid Jolley OTR/L documented as [...] velcro compression garments has been send to [employer] follow up documented as of this encounter Visit Diagnoses Diagnosis Lymphovenous edema- Primary documented in this encounter Care Teams Foot Roentgenologist Relationship Specialty Start Date End Date Kallie Guerrero MD [address] [place] [phone] PCP - General Internal Medicine 12/23/23 documented as of this encounter
[2024-03-29 16:30] LABS: MANUAL DIFF FLAG NO
[2024-03-29 16:38] LABS: Basophils Absolute Auto 0.1 X10*3/uL (0.0-0.2); Basophils Percent Auto 0.9 % (0-2); Eosinophils Absolute Auto 0.2 X10*3/uL (0.0-0.4); Eosinophils Percent Auto 3.8 % (0-4); Hematocrit 31.2 % (37.0-47.0); Hemoglobin 9.4 g/dl (12.0-16.0); Imm Gran Abs Auto 0.03 X10*3/uL (0.00-0.03); Imm Gran Pct Auto 0.5 % (0.0-0.4); Lymphocytes Absolute Auto 0.8 X10*3/uL (1.2-4.9); Mean Corpuscular HGB Conc 30.1 g/dl (31.0-35.0); Mean Corpuscular Hemoglobin 24.5 pg (27.0-33.0); Mean Corpuscular Volume 81.3 fL (80.0-98.0); Mean Platelet Volume 12.2 fL (9.4-12.3); Monocytes Absolute Auto 0.7 X10*3/uL (0.1-1.2); Monocytes Percent Auto 10.3 % (2-11); Neutrophils Absolute Auto 4.6 x10*3/uL (2.0-8.3); Neutrophils Percent Auto 71.5 % (45-73); Platelet Count 264 X10*3/uL (160-400); Red Blood Count 3.84 X10*6/uL (4.20-5.50); Red Cell Distribution Width 16.5 % (11.0-16.0); White Blood Count 6.4 X10*3/uL (4.8-10.8)
[2024-03-29 16:56] LABS: Alanine Aminotransferase 8 U/L (0-31); Albumin Level 3.7 g/dL (3.5-5.0); Anion Gap 10 (12-20); Aspartate Amino Transferase 31 U/L (5-31); Bilirubin Total 0.5 mg/dL (0.0-1.0); Blood Urea Nitrogen 17 mg/dL (9-16); Calcium 9.5 mg/dL (8.4-10.2); Carbon Dioxide 25 mmol/L (22-29); Chloride 107 mmol/L (96-108); Estimated Glomerular Filt Rate > 60; Glucose Random 110 mg/dL (60-115); Potassium 4.3 mmol/L (3.3-5.1); Sodium 138 mmol/L (135-145); Total Protein 6.6 g/dL (6.5-8.0)
[2024-03-29 17:19] LABS: Alkaline Phosphatase 80 U/L (39-117); Ferritin 15 ng/mL (10-250); TSH reflex Free T4 2.12 uIU/mL (0.32-4.0)
[2024-03-29 17:22] LABS: Vitamin B12 899 pg/mL (200-900)
[2024-03-31 05:28] LABS: LDL Cholesterol Direct 78 mg/dL (<100)
[2024-04-03 13:04] LABS: Vitamin D 25-OH, D2 <4 ng/mL; Vitamin D 25-OH, D3 33 ng/mL; Vitamin D 25-OH, Total 33 ng/mL (30-100)
== END 2024-03-29 12:58 | disposition home or self-care (01) ==
LOC: HO.HMGCLDS 12:57
PROVIDERS: PCP Internal Medicine; Visit Provider Internal Medicine
DX: F41.8 Other specified anxiety disorders (principal); D50.9 Iron deficiency anemia, unspecified; E53.8 Deficiency of other specified B group vitamins; E78.5 Hyperlipidemia, unspecified; I89.0 Lymphedema, not elsewhere classified; J45.40 Moderate persistent asthma, uncomplicated; I48.21 Permanent atrial fibrillation; K21.9 Gastro-esophageal reflux disease without esophagitis; F09 Unspecified mental disorder due to known physiological condition; F42.8 Other obsessive-compulsive disorder; Z79.899 Other long term (current) drug therapy; Z91.09 Other allergy status, other than to drugs and biological substances
CPT/HCPCS: 36415; 80053; 82306; 82607; 82728; 83721; 84443; 85025; 96127; 99212

== ENCOUNTER 2024-05-24 13:00 | Outpatient (RCR) | payer MEDICARE, SELFPAY ==
[2024-05-17 13:46] VITALS: BP 122/70; PULSE 100; RESP 16; TEMP 37.6; O2SAT 96
[2024-05-17] MEDS: Ferric Carboxymaltose 750 MG in 0.9 % Sodium Chloride 250 ML 1060 MG IV (14:09)
[2024-05-24 13:59] VITALS: BP 131/74; PULSE 96; RESP 16; TEMP 36.4; O2SAT 96
[2024-05-24] MEDS: Ferric Carboxymaltose 750 MG in 0.9 % Sodium Chloride 250 ML 1060 MG IV (14:24)
--- NOTE | 2024-05-24 14:25 | HO.INF ---
rate slowed d/t pressure on iv site
== END 2024-05-24 15:14 | disposition home or self-care (01) ==
LOC: HO.INF 13:00
PROVIDERS: Visit Provider Nurse Practitioner Family
DX: D64.9 Anemia, unspecified (principal)
CPT/HCPCS: 36415; 81206; 81207; 96365; J1439

== ENCOUNTER → 2024-06-01 14:20 | Outpatient (BNV) | payer MEDICARE, SELFPAY | PROVIDERS: PCP Internal Medicine; Referring Provider Internal Medicine; Visit Provider Nurse Practitioner Family | DX: D64.9 Anemia, unspecified (principal) | CPT/HCPCS: 99213 ==

== ENCOUNTER 2024-06-28 19:47 | Inpatient (IN) | payer MEDICARE, SELFPAY ==
[2024-06-28] VITALS (7 sets, daily range): BP systolic 104–159; BP diastolic 45–93; PULSE 128–168; RESP 19–28; TEMP 36.6–38.6; O2SAT 95–99; BMI 31.3
--- NOTE | 2024-06-28 | ECG_ITS ---
Test Reason : TACHCARDIA Blood Pressure : */* mmHG Vent. Rate : 168 BPM Atrial Rate : 178 BPM P-R Int : * ms QRS Dur : 72 ms QT Int : 282 ms P-R-T Axes : * 40 255 degrees QTcB Int : [address] depression, consider subendocardial injury Nonspecific T wave abnormality Abnormal ECG When compared with ECG of 14-Jul-2023 11:14, Current undetermined rhythm precludes rhythm comparison, needs review Referred By: Generic ED Physician Electronically Signed By: ZARIA MOCTEZUMA
--- NOTE | ~2024-06-28 | XR_ITS ---
CLINICAL HISTORY: atrial fibrillation, weakness 1 view chest x-ray Comparison: CT/MA/SR - CT ANGIO CHEST PE PROTOCOL - 07/12/23 19:58 EDT CR/MA/SR - XR CHEST 1V - 07/12/23 13:21 EDT Findings: No consolidation or effusion. Heart size at the upper limits of normal. No acute fracture. IMPRESSION: 1. No acute findings. This document has been electronically signed by: Chandana Mistry MD on 06/28/2024 23:30:17
--- NOTE | ~2024-06-28 | CT_ITS ---
CLINICAL HISTORY: confusion, altered, fall CT head without contrast Comparison: MR/SR - MR HEAD/BRAIN WO/W CON - 01/04/23 11:34 EST Findings: Mild cerebral atrophy and compensatory ventriculomegaly. No intracranial hemorrhage, mass effect or midline shift. The visualized paranasal sinuses and mastoid air cells are normal. The orbits are unremarkable. No skull fracture. IMPRESSION: 1. No acute intracranial findings. This document has been electronically signed by: Chandana Mistry MD on 06/29/2024 00:03:38
--- NOTE | ~2024-06-28 | CT_ITS ---
CLINICAL HISTORY: sepsis infected sacral wounds ; fall CT abdomen and pelvis without contrast Comparison: None Findings: Moderate hiatal hernia. Spleen, adrenal glands, pancreas, gallbladder are unremarkable. 1.5 cm cyst in the right lobe of the liver. Bilateral renal cysts are present. No hydronephrosis. No ureteral stones. No bowel obstruction, pneumoperitoneum, or pneumatosis. Normal appendix. Calcifications are present within the uterus, which may be old calcified fibroids. Romero catheter in the urinary bladder. There is a tube within the rectal vault. Moderate-sized stool ball in the rectal vault. There is some skin thickening and subcutaneous stranding over the bilateral lower buttocks. No underlying abscess or fluid collection. No evidence of skin breakdown on this CT. S shaped scoliosis of the thoracolumbar spine. Degenerative changes of the lumbar spine. No lytic or blastic bone lesions. IMPRESSION: No open wounds seen in the sacral or ischial regions. There is some skin thickening and underlying subcutaneous stranding. No evidence of abscess. This document has been electronically signed by: Chandana Mistry MD on 06/29/2024 01:32:30
--- NOTE | 2024-06-28 21:05 | ED.GENADULT ---
HPI - General Adult General Chief complaint: Fall Stated complaint: fall,stuck on floor since last Wednesday Time Seen by Provider: 06/28/24 21:05 History of Present Illness ED Provider: Rudy RUIZ narrative: The patient is an 83-year-old woman with a history of atrial fibrillation on rivaroxaban. She apparently fell at her home several days ago. She did not have her phone with her. She says she was not able to get up. Apparently she was on the phone for approximately 5 days. Finally family or friends sense somewhat to check on her and she was found on the ground at home. Apparently she had fallen onto a pile of clothes. According to paramedics the home seems like the home of a hoarder. The patient says she did not hit her head. She has no headache. She has no neck pain. She was apparently covered in stool and urine. She has not taken any medications for 4 days. The patient has diffuse body pains which she attributes to having been lying on the floor for 4 days. She says she has not eaten anything for the last 4 days. She admits to having urinated a great deal while lying on the floor. She may have some dysuria she says. No significant cough. Related Data Home Medications ?Medication ?Instructions ?Recorded ?Confirmed memantine 5 mg tablet 5 mg PO BID 07/13/23 05/01/24 Previous Rx's ?Medication ?Instructions ?Recorded omeprazole 40 mg capsule,delayed 40 mg PO DAILY #30 caps 09/12/21 release metoprolol succinate 50 mg 50 mg PO BID #60 tabs 07/17/23 tablet,extended release 24 hr rivaroxaban 20 mg tablet 20 mg PO DAILY #90 tabs 07/27/23 digoxin 125 mcg (0.125 mg) tablet 125 mcg PO MOWEFR 90 days #39 tabs 09/30/23 rosuvastatin 20 mg tablet 20 mg PO DAILY #90 tabs 10/26/23 Bilateral Velcro based compression #1 ea 12/28/23 garments-compression class 20-30 citalopram 40 mg tablet 40 mg PO ONCE #90 tabs 03/29/24 fluticasone propionate 115 2 puff inhalation Q12H #12 ea 04/25/24 mcg-salmeterol 21 mcg/actuation HFA inhaler (Advair HFA) fluticasone propionate 50 1 spray intranasal DAILY 30 days 05/08/24 mcg/actuation nasal #16 grams spray,suspension furosemide 40 mg tablet 40 mg PO QAM #90 tabs 05/08/24 famotidine 20 mg tablet 20 mg PO BEDTIME #30 tabs 06/01/24 Allergies Allergy/AdvReac Type Severity Reaction Status Date / Time doxycycline Allergy Mild Rash Verified 06/28/24 20:48 lorazepam Allergy Unknown unknown Verified 06/28/24 20:48 pantoprazole Allergy Unknown NAUSEA Verified 06/28/24 20:48 amoxicillin [AMOXICILLIN] AdvReac Intermediate NAUSEA/VOMI Verified 06/28/24 20:48 TING Review of Systems Review of Systems: Yes all other systems are reviewed and are negative FORMERLY [facility], [facility] Past Medical History Medical History History of upper gastrointestinal bleeding (~08/2021) History of TIA (transient ischemic attack) (~2018) Osteopenia (~2012) Bilateral pulmonary embolism (~06/2023) Atrial fibrillation with RVR Moderate persistent asthma Surgical History History of basal cell carcinoma (BCC) excision History of esophagogastroduodenoscopy (EGD) History of colonoscopy Family History Family History Father No problems noted. Mother Cerebral brain hemorrhage Social History Social History (Updated 05/01/24 @ 14:46 by Connie Richardson) Household Members: None Housing: House Do you presently have visiting nurse or other home services: No Alcohol intake: current Alcohol intake frequency: does not drink Patient Tobacco Use Status: Never used Tobacco Smoked in Last 30 Days: No e-Cigarette/Vaping Use: Never Used Second Hand Smoke Exposure: Yes Use of substances other than those prescribed or required for medical reasons: No Advance Directives: No Advance Directives Information Provided: No Advance Directives Date on File: 09/15/21 Do you have a plan to hurt others: No Plan service: No Current occupational status: retired Gender identity: Female Cognitive needs: No Hearing needs: No Vision needs: Yes Physical Exam ED Vital Signs: Vital Signs - 24 hr 06/28/24 20:45 06/28/24 22:05 06/28/24 22:48 Temperature 97.8 F 101.4 F H Pulse Rate 168 H 158 H 152 H Respiratory Rate 19 28 H Blood Pressure 144/93 H 159/83 H 117/86 Pulse Oximetry 96 99 Oxygen Delivery Method Room Air Room Air 06/28/24 22:55 06/28/24 22:56 06/28/24 23:31 Temperature 100 F 100 F Pulse Rate 128 H 149 H Respiratory Rate 20 Blood Pressure 104/45 L 120/80 Pulse Oximetry 99 Oxygen Delivery Method Room Air 06/29/24 00:14 Temperature 99.1 F Pulse Rate 125 H Respiratory Rate 19 Blood Pressure 103/79 Pulse Oximetry 96 Oxygen Delivery Method Room Air BMI result Body Mass Index 31.3 Const Other: The patient is awake and alert. She has a remarkably positive demeanor considering the history that she has been lying on the floor for 4 days. she does not appear in acute pain or respiratory distress. She is pleasant and interactive. She was mildly disoriented however and could not tell me the correct year although she could tell me the name of the president. HENMT Other: No obvious signs of trauma to the head or the face. No raccoon eyes, no cruz sign. Mucous membranes are dry however. Eyes General: appearance normal, both eyes and all related structures Conjunctivae: conjunctivae normal Pupils: Equal, round and reactive pupils present EOM: EOMs intact bilaterally Neck Other: No posterior midline C-spine tenderness. She has good range of motion of the neck without pain. No JVD. Resp Other: No increased work of breathing. Breath sounds are clear bilaterally Cardio Other: the patient was very tachycardic with an irregular rate and rhythm. No murmur heard. GI Other: No significant abdominal tenderness Skin Other: the patient has a lot of areas of skin irritation to the back and also in the intertriginous folds. Neuro Other: The patient was awake and alert with a fairly positive demeanor. She could not initially tell me the year although she could tell me the president. Cranial nerves 2-12 are intact. She seems deconditioned but has symmetrical use of her extremities. Cranial nerves: Yes Equal, round and reactive pupils present Extrem Other: The patient has what seems to be chronic edema of her legs with some venous stasis changes. Medications Administered Generic Name Dose Route Start Last Admin Trade Name Freq PRN Reason Stop Dose Admin Piperacillin Sod/Tazobactam 100 mls @ 200 mls/hr 06/29/24 00:30 06/29/24 02:12 Sod 4.5 gm/ Sodium Chloride IV Infused Q6H JORGE Infusion Discontinued Medications Generic Name Dose Route Start Last Admin Trade Name Deann PRN Reason Stop Dose Admin Ceftriaxone Sodium 1 gm 06/28/24 22:09 06/28/24 22:26 Ceftriaxone Sodium 1 Gm Vial IVPUSH 06/28/24 22:10 1 gm ONCE ONE Administration Diltiazem HCl 10 mg 06/28/24 22:14 06/28/24 22:48 Diltiazem Hcl 50 Mg/10 Ml Vial IVPUSH 06/28/24 22:15 10 mg STAT STA Administration Sodium Chloride 1,000 mls @ 999 mls/hr 06/28/24 21:15 06/28/24 22:26 Ns IV 06/28/24 22:15 Infused .Q1H1M JORGE Infusion Acetaminophen 1,000 mg in 100 mls @ 400 mls/hr 06/28/24 22:05 06/28/24 22:41 Ofirmev IV 06/28/24 22:19 Infused ONCE ONE Infusion Vancomycin HCl 2,000 mg in 500 mls @ 250 mls/hr 06/28/24 22:09 06/29/24 01:15 Vancomycin/Ns IV 06/29/24 00:08 Infused ONCE ONE Infusion Lactated Ringer's 1,000 mls @ 999 mls/hr 06/28/24 22:30 06/29/24 00:11 Lr IV 06/28/24 23:30 Infused .Q1H1M JORGE Infusion Lactated Ringer's 1,000 mls @ 999 mls/hr 06/28/24 23:15 06/29/24 01:52 Lr IV 06/29/24 00:15 Infused .Q1H1M JORGE Infusion Metoprolol Tartrate 50 mg 06/28/24 22:16 06/28/24 23:31 Metoprolol Tartrate 50 Mg Tablet PO 06/28/24 22:17 50 mg ONCE ONE Administration Protocol Metoprolol Tartrate 5 mg 06/28/24 23:58 06/29/24 00:12 Metoprolol Tartrate 5 Mg/5 Ml Vial IVPUSH 06/28/24 23:59 5 mg ONCE ONE Administration Protocol Medical Decision Making Medical Decision Making [facility] Narrative: The patient is an 83-year-old woman with a history of chronic atrial fibrillation on rivaroxaban. She lives alone in apparently had a fall from what she could not get up and was not discovered for several days. She looks very dehydrated. She was very tachycardic. Her initial blood pressures were elevated. She looked very dehydrated and dry. She was mildly confused but not severely so. My initial impression was that the patient was significantly dehydrated and that she had significant tachycardia related to chronic atrial fibrillation that has been exacerbated by not having access to her medications for the last 4 days while she was on the floor. She was therefore given IV fluids for rehydration and IV diltiazem to help control her heart rate. At 22:05 however a rectal temperature was done that revealed a fever. At that point I became concerned about possibility of a additional process, a possible infection. Blood cultures were obtained as was a lactic acid. Her lactic acid was elevated. She was started on ceftriaxone and vancomycin. Possible sources of an infection include her urine and possibly her skin where she has some breakdown from lying on the floor Although she does not have zandra cellulitis on exam. The patient was given a total of 3 L of crystalloid. She was given a dose of oral metoprolol as well as IV metoprolol. A head CT was done given her mild disorientation. This was unremarkable. The patient will be admitted to the hospitalist service for further care. Lab Data 06/28/24 21:09 06/28/24 21:48 Labs: Lab Results 06/28/24 06/28/24 06/28/24 Range/Units 21:09 21:48 22:18 WBC 18.4 H (4.8-10.8) X10*3/uL RBC 5.65 H D (4.20-5.50) X10*6/uL Hgb 16.9 H D (12.0-16.0) g/dl Hct 51.6 H D (37.0-47.0) % MCV 91.3 (80.0-98.0) fL MCH 29.9 (27.0-33.0) pg MCHC 32.8 (31.0-35.0) g/dl RDW TNP Plt Count 205 (160-400) X10*3/uL MPV 10.9 (9.4-12.3) fL Immature Gran % (Auto) 0.4 (0.0-0.4) % Neut % (Auto) 90.3 H (45-73) % Lymph % (Auto) 3.3 L (20-40) % [place] % (Auto) 5.9 (2-11) % Eos % (Auto) 0.0 (0-4) % Baso % (Auto) 0.1 (0-2) % Lymph # (Auto) 0.6 L (1.2-4.9) X10*3/uL [place] # (Auto) 1.1 (0.1-1.2) X10*3/uL Eos # (Auto) 0.0 (0.0-0.4) X10*3/uL Baso # (Auto) 0.0 (0.0-0.2) X10*3/uL Abs Immat Gran (auto) 0.07 H (0.00-0.03) X10*3/uL Absolute Neuts (auto) 16.6 H (2.0-8.3) x10*3/uL Absolute Nucleated RBC 0.000 (0.0-0.012) X10*3/uL Nucleated RBC % (auto) 0.0 (0.0-0.2) /100WBC PT 15.5 H (10.9-12.4) SEC INR 1.3 H (0.9-1.1) Sodium 149 H (135-145) mmol/L Potassium 4.2 (3.3-5.1) mmol/L Chloride 120 H (96-108) mmol/L Carbon Dioxide 17 L (22-29) mmol/L Anion Gap 16 (12-20) BUN 32 H (9-16) mg/dL Creatinine 0.68 (0.5-1.4) mg/dL Estim Creat Clear Calc 73.7 Estimated GFR > 60 Random Glucose 141 H (60-115) mg/dL Lactic Acid 3.6 H* (0.5-2.0) mmol/L Calcium 10.3 H D (8.4-10.2) mg/dL Total Bilirubin 1.6 H (0.0-1.0) mg/dL AST 66 H (5-31) U/L ALT 26 (0-31) U/L Alkaline Phosphatase 113 (39-117) U/L Total Creatine Kinase 466 H (26-140) U/L Troponin I High Sens 35.6 H (<3.5-17.0) ng/L C-Reactive Protein 19.33 H (< or = 0.50) mg/dL B-Natriuretic Peptide 56 (<100) pg/mL Total Protein 6.3 L (6.5-8.0) g/dL Albumin 3.3 L (3.5-5.0) g/dL Urine Color Urine Appearance Urine pH (5.0-9.0) Ur Specific Hankinson (1.005-1.025) Urine Protein (Neg-Trace) mg/dL Urine Glucose (UA) (Negative) mg/dL Urine Ketones (Negative) mg/dL Urine Blood (Negative) Urine Nitrite (Negative) Ur Leukocyte Esterase (Negative) Urine RBC (0-2) /HPF Urine WBC (0-5) /HPF Ur Squamous Epith Cells (0-2) /HPF Urine Bacteria (None Seen) Hyaline Casts (0-2) /LPF Influenza Type A (PCR) NEGATIVE (Negative) Influenza Type B (PCR) NEGATIVE (Negative) RSV RNA Qual (PCR) NEGATIVE (Negative) SARS-CoV-2 RNA (RT-PCR) NEGATIVE (Negative) 06/28/24 06/29/24 Range/Units 22:54 00:04 WBC (4.8-10.8) X10*3/uL RBC (4.20-5.50) X10*6/uL Hgb (12.0-16.0) g/dl Hct (37.0-47.0) % MCV (80.0-98.0) fL MCH (27.0-33.0) pg MCHC (31.0-35.0) g/dl RDW Plt Count (160-400) X10*3/uL MPV (9.4-12.3) fL Immature Gran % (Auto) (0.0-0.4) % Neut % (Auto) (45-73) % Lymph % (Auto) (20-40) % [place] % (Auto) (2-11) % Eos % (Auto) (0-4) % Baso % (Auto) (0-2) % Lymph # (Auto) (1.2-4.9) X10*3/uL [place] # (Auto) (0.1-1.2) X10*3/uL Eos # (Auto) (0.0-0.4) X10*3/uL Baso # (Auto) (0.0-0.2) X10*3/uL Abs Immat Gran (auto) (0.00-0.03) X10*3/uL Absolute Neuts (auto) (2.0-8.3) x10*3/uL Absolute Nucleated RBC (0.0-0.012) X10*3/uL Nucleated RBC % (auto) (0.0-0.2) /100WBC PT (10.9-12.4) SEC INR (0.9-1.1) Sodium (135-145) mmol/L Potassium (3.3-5.1) mmol/L Chloride (96-108) mmol/L Carbon Dioxide (22-29) mmol/L Anion Gap (12-20) BUN (9-16) mg/dL Creatinine (0.5-1.4) mg/dL Estim Creat Clear Calc Estimated GFR Random Glucose (60-115) mg/dL Lactic Acid (0.5-2.0) mmol/L Calcium (8.4-10.2) mg/dL Total Bilirubin (0.0-1.0) mg/dL AST (5-31) U/L ALT (0-31) U/L Alkaline Phosphatase (39-117) U/L Total Creatine Kinase 477 H (26-140) U/L Troponin I High Sens (<3.5-17.0) ng/L C-Reactive Protein (< or = 0.50) mg/dL B-Natriuretic Peptide (<100) pg/mL Total Protein (6.5-8.0) g/dL Albumin (3.5-5.0) g/dL Urine Color Dark Yellow Urine Appearance Cloudy Urine pH 6.0 (5.0-9.0) Ur Specific Hankinson >= 1.030 H (1.005-1.025) Urine Protein 30 (1+) H (Neg-Trace) mg/dL Urine Glucose (UA) Negative (Negative) mg/dL Urine Ketones 15 (Negative) mg/dL Urine Blood Negative (Negative) Urine Nitrite Negative (Negative) Ur Leukocyte Esterase Small (1+) H (Negative) Urine RBC 0-2 (0-2) /HPF Urine WBC 0-5 (0-5) /HPF Ur Squamous Epith Cells 6-10 (0-2) /HPF Urine Bacteria 4+ (None Seen) Hyaline Casts 11-20 (0-2) /LPF Influenza Type A (PCR) (Negative) Influenza Type B (PCR) (Negative) RSV RNA Qual (PCR) (Negative) SARS-CoV-2 RNA (RT-PCR) (Negative) Critical Care Time Critical Care Time Critical Care Time: Yes Total Critical Care Time: 35 Attestation: The patient was critically ill with a high probability of imminent or life-threatening deterioration. I spent greater than 30 minutes of discontinuous time evaluating the patient, delivering critical care at the bedside, discussing evaluating data with consultants. Critical care time does not include time spent performing separately billable procedures or teaching. Time spent performing critical care with 35 minutes. Discharge Plan Discharge Clinical Impression: Fall, Atrial fibrillation with rapid ventricular response, Acute dehydration, Fever Patient Disposition: Admitted As Inpatient
[2024-06-28 21:14] LABS: MANUAL DIFF FLAG NO
[2024-06-28 21:15] LABS: Basophils Percent Auto 0.1 % (0-2); Imm Gran Pct Auto 0.4 % (0.0-0.4); Mean Corpuscular HGB Conc 32.8 g/dl (31.0-35.0); Mean Corpuscular Hemoglobin 29.9 pg (27.0-33.0); Monocytes Percent Auto 5.9 % (2-11); SCAN SMEAR FLAG 1
[2024-06-28 21:17] LABS: Hematocrit 51.6 % (37.0-47.0); Hemoglobin 16.9 g/dl (12.0-16.0); Imm Gran Abs Auto 0.07 X10*3/uL (0.00-0.03); Lymphocytes Absolute Auto 0.6 X10*3/uL (1.2-4.9); Lymphocytes Percent Auto 3.3 % (20-40); Mean Corpuscular Volume 91.3 fL (80.0-98.0); Mean Platelet Volume 10.9 fL (9.4-12.3); Monocytes Absolute Auto 1.1 X10*3/uL (0.1-1.2); Neutrophils Absolute Auto 16.6 x10*3/uL (2.0-8.3); Neutrophils Percent Auto 90.3 % (45-73); Platelet Count 205 X10*3/uL (160-400); Red Blood Count 5.65 X10*6/uL (4.20-5.50); White Blood Count 18.4 X10*3/uL (4.8-10.8)
[2024-06-28] MEDS: 0.9 % Sodium Chloride 1,000 ML 999 ML IV (21:20)
[2024-06-28 21:34] LABS: Troponin-I High Sensitivity 35.6 ng/L (<3.5-17.0)
[2024-06-28 21:35] LABS: B Type Natriuretic Peptide 56 pg/mL (<100)
[2024-06-28 21:45] LABS: PLT ABN DIST 1
[2024-06-28 21:54] LABS: Influenza A PCR NEGATIVE (Negative); Influenza B PCR NEGATIVE (Negative); Resp Syncy Virus RNA Qual PCR NEGATIVE (Negative); SARS COV2 PCR INHOUSE NEGATIVE (Negative)
[2024-06-28 22:17] LABS: Alanine Aminotransferase 26 U/L (0-31); Albumin Level 3.3 g/dL (3.5-5.0); Alkaline Phosphatase 113 U/L (39-117); Anion Gap 16 (12-20); Aspartate Amino Transferase 66 U/L (5-31); Bilirubin Total 1.6 mg/dL (0.0-1.0); Blood Urea Nitrogen 32 mg/dL (9-16); C Reactive Protein 19.33 mg/dL (< or = 0.50); Calcium 10.3 mg/dL (8.4-10.2); Carbon Dioxide 17 mmol/L (22-29); Chloride 120 mmol/L (96-108); Creatinine Clr Calc Pharmacy 73.7; Estimated Glomerular Filt Rate > 60; Glucose Random 141 mg/dL (60-115); Potassium 4.2 mmol/L (3.3-5.1); Sodium 149 mmol/L (135-145); Total Protein 6.3 g/dL (6.5-8.0)
[2024-06-28] MEDS: Acetaminophen 1,000 MG/100 ML PIGGYBACK 400 MG IV (22:26)
[2024-06-28] MEDS: cefTRIAXone sodium 1 GM VIAL IVPUSH (22:26)
[2024-06-28 22:31] LABS: INTERNATIONAL NORM RATIO 1.3 (0.9-1.1); Prothrombin Time 15.5 SEC (10.9-12.4)
[2024-06-28] MEDS: vancomycin/NS 2,000 MG/500 ML PLAST..BAG 250 MG IV (22:33)
[2024-06-28 22:41] LABS: Lactic Acid 3.6 mmol/L (0.5-2.0)
[2024-06-28] MEDS: dilTIAZem HCL 50 MG/10 ML VIAL 10 MG IVPUSH (22:48)
[2024-06-28] MEDS: Lactated Ringers 1,000 ML 999 ML IV (22:53)
[2024-06-28 23:07] LABS: Appearance Urine Cloudy; Color Urine Dark Yellow; Glucose Urine UA Negative (Negative); Leukocyte Esterase Urine Small (1+) (Negative); Nitrite Urine Negative (Negative); Specific Gravity - Urine >= 1.030 (1.005-1.025); UMIC TRIGGER UACC YES; Urine Blood Negative (Negative); Urine Ketones 15 mg/dL (Negative); Urine Protein 30 (1+) mg/dL (Neg-Trace)
[2024-06-28 23:17] LABS: Bacteria Urine 4+ (None Seen); RBC Urine 0-2 /HPF (0-2); UACC Culture Trigger YES; WBC Urine 0-5 /HPF (0-5)
--- NOTE | 2024-06-28 23:18 | PC.NURSE ---
LATE ENTRY pt hai from home, found by friends on ground at home, reported fell Wednesday06/23/24 onto a pile of clothes (hoarding situation) denies headstrike/loc. has been on ground since. arrived covered in stool/urine. pt is axox4 hasn't taken meds since Wednesday. hx afib. reporting pain all over body, wounds/skin irritation of kym area. stool cleaned off lower half of body. excoriation noted all lower half of body and under breasts. rectal temp obtained, febrile, made aware. heart rate tachy since arrival, md aware, ekg obtained. pierre placed, pt tolerated fairly, skin very red/tender. pt to ct scan at this time.
--- NOTE | 2024-06-28 23:29 | PC.NURSE ---
held off on metoprolol as bp drop with diltiazem, bp improved now to medicate.
[2024-06-28] MEDS: Metoprolol Tartrate 50 MG TABLET PO (23:31)
[2024-06-29] VITALS (11 sets, daily range): BP systolic 100–140; BP diastolic 52–92; PULSE 85–125; RESP 16–25; TEMP 36.3–37.3; O2SAT 93–100; BMI 31.1
[2024-06-29] MEDS: Metoprolol Tartrate 5 MG/5 ML VIAL IVPUSH (00:12)
[2024-06-29] MEDS: Lactated Ringers 1,000 ML 999 ML IV (00:12)
[2024-06-29 00:21] LABS: Reflex Lactate? Lactic Acid Added
--- NOTE | 2024-06-29 00:50 | PM.IMHP ---
History of Present Illness Date of Service: 06/29/24 Chief Complaint: Fall This is a 83-year-old female with pertinent history of moderate persistent asthma not on home oxygen, lower extremity lymphedema with venous stasis changes, paroxysmal atrial fibrillation on Xarelto, history of PE due to noncompliance with anticoagulation, history of TIA, mood disorder, gastroesophageal reflux disease, mixed hyperlipidemia, mild cognitive disorder who was brought to the emergency department for evaluation after being found on the ground at home. Patient states she fell in her home about 5 days prior to presentation. Does not remember how she fell but thinks she might have tripped on something. Does not think that she lost consciousness before she fell. Patient states she was lying on the floor for about 4-5 days and is complaining of diffuse body pains as a result of it. Patient states she has not eaten anything and was urinating and defecating in the same place for the last 4 days. Patient did not have her phone and hence could not call anybody. Patient was found on the day of presentation by friends at home onto a pile of clothes and EMS was called. Patient denied hitting her head or chest pain, dizziness, lightheadedness or palpitations before the fall. Patient was covered in stool and urine as per EMS. Patient has not taken her home prescription medications for the last 4-5 days. In the emergency department, patient was found to be septic with temp 101.4, leukocytosis 18.4. Also found to be in AFib with RVR. Review of Systems Constitutional: Constitutional: Reports fatigue, Reports malaise and Reports weakness Cardiovascular: Cardiovascular: Reports rapid heart rate Gastrointestinal: Gastrointestinal: Reports no additional gastrointestinal complaints Genitourinary: Genitourinary: Reports no additional female genitourinary complaints Neurologic: Reports weakness Endocrine: Endocrine: Reports fatigue [facility] Medical History History of upper gastrointestinal bleeding (~08/2021) History of TIA (transient ischemic attack) (~2018) Osteopenia (~2012) Bilateral pulmonary embolism (~06/2023) Atrial fibrillation with RVR Moderate persistent asthma Family History Father No problems noted. Mother Cerebral brain hemorrhage Surgical History History of basal cell carcinoma (BCC) excision History of esophagogastroduodenoscopy (EGD) History of colonoscopy Social History Household Members: None Housing: House Do you presently have visiting nurse or other home services: No Alcohol intake: current Alcohol intake frequency: does not drink Patient Tobacco Use Status: Never used Tobacco Smoked in Last 30 Days: No e-Cigarette/Vaping Use: Never Used Second Hand Smoke Exposure: Yes Use of substances other than those prescribed or required for medical reasons: No Advance Directives: No Advance Directives Information Provided: No Advance Directives Date on File: 09/15/21 Do you have a plan to hurt others: No Plan service: No Current occupational status: retired Gender identity: Female Cognitive needs: No Hearing needs: No Vision needs: Yes Meds Allergies Allergy/AdvReac Type Severity Reaction Status Date / Time doxycycline Allergy Mild Rash Verified 06/28/24 20:48 lorazepam Allergy Unknown unknown Verified 06/28/24 20:48 pantoprazole Allergy Unknown NAUSEA Verified 06/28/24 20:48 amoxicillin [AMOXICILLIN] AdvReac Intermediate NAUSEA/VOMI Verified 06/28/24 20:48 TING Active Medications: Current Medications Acetaminophen (Acetaminophen 325 Mg Tablet) 650 mg PO Q6H PRN PRN Reason: Pain, Mild 1-3,fever,headache Calcium Carbonate (Calcium Carbonate 750 Mg Tab.Chew) 750 mg PO Q4H PRN PRN Reason: Heartburn Piperacillin Sod/Tazobactam (Sod 4.5 gm/ Sodium Chloride) 100 mls @ 200 mls/hr IV Q6H JORGE Magnesium Hydroxide (Milk Of Magnesia 30 Ml Oral.Susp) 30 ml PO DAILY PRN PRN Reason: Constipation Melatonin (Melatonin 3 Mg Tablet) 6 mg PO BEDTIME PRN PRN Reason: Insomnia Nystatin (Nystatin Powder 15 Gm Bottle) 1 appl TOPICAL TID JORGE; Protocol Ondansetron HCl (Ondansetron Hcl 4 Mg/2 Ml Vial) 4 mg IVPUSH Q8H PRN PRN Reason: Nausea and Vomiting Pharmacy Consult (Consult Rx Vancomycin Dosing) 1 each MISCELLANE DAILY PRN PRN Reason: Consult order Sodium Chloride (0.9 % Sodium Chloride Flush 3 Ml Syringe) 3 ml IVFLUSH QSHIFT [facility] Home Medications ?Medication ?Instructions ?Recorded ?Confirmed ?Last Taken ?Type memantine 5 mg tablet 5 mg PO BID 07/13/23 05/01/24 Unknown History Physical Exam Vital Signs and Narrative: Vital Signs: Last Vital Signs Temp 100 F 06/28/24 22:56 Pulse 149 H 06/28/24 23:31 Resp 20 06/28/24 22:55 BP 120/80 06/28/24 23:31 Pulse Ox 99 06/28/24 22:55 O2 Del Method Room Air 06/28/24 22:55 BMI result Body Mass Index 31.3 Elderly female lying in bed in no distress Neck supple, no JVD Irregularly irregular, S1-S2 heard Regular breath sounds bilaterally, no wheezing or crackles appreciated Abdomen soft nontender, no guarding, no rigidity Patient is awake, alert and oriented x2 ; no focal motor deficit Intertrigo + under breast skin folds and abdominal folds Abrasion and skin breakdown over the sacral region with foul-smelling purulent drainage Psych: Normal mood Venous stasis changes over bilateral lower extremities Results Labs 06/29/24 04:24 06/29/24 04:24 Labs: Laboratory Results - last 24 hr 06/28/24 06/28/24 06/28/24 21:09 21:48 22:18 MCV 91.3 MCH 29.9 MCHC 32.8 RDW TNP Plt Count 205 MPV 10.9 Immature Gran % (Auto) 0.4 Neut % (Auto) 90.3 H Lymph % (Auto) 3.3 L [place] % (Auto) 5.9 Eos % (Auto) 0.0 Baso % (Auto) 0.1 Lymph # (Auto) 0.6 L [place] # (Auto) 1.1 Eos # (Auto) 0.0 Baso # (Auto) 0.0 Abs Immat Gran (auto) 0.07 H Absolute Neuts (auto) 16.6 H Absolute Nucleated RBC 0.000 Nucleated RBC % (auto) 0.0 PT 15.5 H INR 1.3 H Anion Gap 16 Estim Creat Clear Calc 73.7 Estimated GFR > 60 Random Glucose 141 H Lactic Acid 3.6 H* Calcium 10.3 H D Total Bilirubin 1.6 H AST 66 H ALT 26 Alkaline Phosphatase 113 Total Creatine Kinase 466 H C-Reactive Protein 19.33 H B-Natriuretic Peptide 56 Total Protein 6.3 L Albumin 3.3 L Urine Color Urine Appearance Urine pH Ur Specific [place] Urine Protein Urine Glucose (UA) Urine Ketones Urine Blood Urine Nitrite Ur Leukocyte Esterase Urine RBC Urine WBC Ur Squamous Epith Cells Urine Bacteria Hyaline Casts Influenza Type A (PCR) NEGATIVE Influenza Type B (PCR) NEGATIVE RSV RNA Qual (PCR) NEGATIVE SARS-CoV-2 RNA (RT-PCR) NEGATIVE 06/28/24 22:54 MCV MCH MCHC RDW Plt Count MPV Immature Gran % (Auto) Neut % (Auto) Lymph % (Auto) [place] % (Auto) Eos % (Auto) Baso % (Auto) Lymph # (Auto) [place] # (Auto) Eos # (Auto) Baso # (Auto) Abs Immat Gran (auto) Absolute Neuts (auto) Absolute Nucleated RBC Nucleated RBC % (auto) PT INR Anion Gap Estim Creat Clear Calc Estimated GFR Random Glucose Lactic Acid Calcium Total Bilirubin AST ALT Alkaline Phosphatase Total Creatine Kinase C-Reactive Protein B-Natriuretic Peptide Total Protein Albumin Urine Color Dark Yellow Urine Appearance Cloudy Urine pH 6.0 Ur Specific [place] >= 1.030 H Urine Protein 30 (1+) H Urine Glucose (UA) Negative Urine Ketones 15 Urine Blood Negative Urine Nitrite Negative Ur Leukocyte Esterase Small (1+) H Urine RBC 0-2 Urine WBC 0-5 Ur Squamous Epith Cells 6-10 Urine Bacteria 4+ Hyaline Casts 11-20 Influenza Type A (PCR) Influenza Type B (PCR) RSV RNA Qual (PCR) SARS-CoV-2 RNA (RT-PCR) Assessment and Plan (1) Severe sepsis: Status: Acute (2) Atrial fibrillation with rapid ventricular response: Status: Acute Plan This is a 83-year-old female with pertinent history of moderate persistent asthma not on home oxygen, lower extremity lymphedema with venous stasis changes, paroxysmal atrial fibrillation on Xarelto, history of PE due to noncompliance with anticoagulation, history of TIA, mood disorder, gastroesophageal reflux disease, mixed hyperlipidemia, mild cognitive disorder who was brought to the emergency department for evaluation after being found on the ground at home. #. Severe sepsis due to infected sacral decubitus injury + intertrigo with secondary bacterial infection: Resuscitated with IV crystalloids. Initiating empiric broad-spectrum IV antibiotics. Lactic acid and blood culture obtained. Consulted Wound Care. Ordered nystatin powder #. AFib with RVR: As patient did not take her home medications in the last 4 days. Rate controlled with IV Lopressor and IV diltiazem push in the ER. Continue home rate-controlling agents and Xarelto #. Acute lactic acidosis due to sepsis #. Elevated troponin: Type 2 in the setting of sepsis and AFib with RVR #. Mood disorder: Continue home mood stabilizers #. Cognitive disorder: On memantine. Maintain sleep-wake cycle #. Gastroesophageal reflux disease: On PPI #. Mixed hyperlipidemia: On statin #. Moderate persistent asthma: No exacerbation during admission. Continue home inhaler Med rec pending DVT prophylaxis: Xarelto Full code Admit as inpatient and will require two night minimum hospital stay for IV antibiotics, monitoring of heart rate (as above), which is not possible in a lesser acute setting. Quality Stroke Does the patient have a stroke diagnosis?: No VTE Prior VTE?: No VTE Risk Level:: Medical - moderate - high VTE Device Contraindication: Treatment Not Indicated VTE Drug Contraindication: N/A - Med Ordered
[2024-06-29 01:21] LABS: Troponin-I High Sensitivity 48.9 ng/L (<3.5-17.0)
[2024-06-29 01:24] LABS: ~Lactic Acid-LAB USE ONLY 2.8 mmol/L (0.5-2.0)
[2024-06-29] MEDS: Piperacillin Sodium/Tazobactam 4.5 GM in 0.9 % Sodium Chloride 100 ML IV ×4 (01:42→18:40)
[2024-06-29 02:56] LABS: Reflex Lactate? 2 Y
[2024-06-29 04:29] LABS: Hematocrit 40.8 % (37.0-47.0); Mean Corpuscular Volume 91.5 fL (80.0-98.0); PLT CLUMP 1; Red Blood Count 4.46 X10*6/uL (4.20-5.50)
[2024-06-29 04:30] LABS: Hemoglobin 13.5 g/dl (12.0-16.0); Mean Corpuscular HGB Conc 33.1 g/dl (31.0-35.0); Mean Corpuscular Hemoglobin 30.3 pg (27.0-33.0); Mean Platelet Volume 10.7 fL (9.4-12.3)
--- NOTE | 2024-06-29 04:30 | PC.NURSE ---
bed linen changed, pt turned to R. side. resting comfortably. call rush within reach.
[2024-06-29 04:43] LABS: ~Lactic Acid-LAB USE ONLY 1.8 mmol/L (0.5-2.0)
[2024-06-29 04:44] LABS: Anion Gap 13 (12-20); Blood Urea Nitrogen 28 mg/dL (9-16); Calcium 9.2 mg/dL (8.4-10.2); Carbon Dioxide 19 mmol/L (22-29); Chloride 119 mmol/L (96-108); Creatinine Clr Calc Pharmacy 79.6; Estimated Glomerular Filt Rate > 60; Glucose Random 137 mg/dL (60-115); Potassium 3.7 mmol/L (3.3-5.1); Sodium 147 mmol/L (135-145)
[2024-06-29 04:49] LABS: Platelet Count 136 X10*3/uL (160-400); White Blood Count 14.5 X10*3/uL (4.8-10.8)
--- NOTE | 2024-06-29 06:42 | PHA.PROG ---
Admission Date/Time: June 29, 2024 00:19 Indication: skin Weight in k.718 kg Adjusted body weight in Kg: Arthur body weight in Kg: Obesity Dosing Indication % IBW: Serum Creatinine - Last 168 Hours 06/28/24 06/29/24 21:48 04:24 Creatinine 0.68 0.63 Estimated CrCl and GFR - Last 168 Hours 06/28/24 06/29/24 21:48 04:24 Estim Creat Clear Calc 73.7 79.6 Estimated GFR > 60 > 60 Vancomycin Loading Dose: 2000mg x 1 Current Vancomycin Dosing Regimen: 1500mg Q24H Vancomycin Monitoring using AUC goal of 400 - 600 range with trough as surrogate marker: 418 mg/L Date and Time for next Vancomycin Level to be drawn: 06/30 @1999 Pharmacist Comments on Vancomycin Plan: Predicted trough of 11.4 mg/L Vancomycin dosing will take advantage of [employer] as a clinical decision support tool that uses Bayesian modeling to calculate individual patient's pharmacokinetic parameters and forecast the patient's drug concentration time course with the target goal AUC 24 range of 400 - 600 mg/L/hr.
--- NOTE | 2024-06-29 08:13 | PHA.MEDREC ---
Pharmacy Consult ? Medication Reconciliation Pharmacy has completed the medication reconciliation. Spoke with patient who is a poor historian and could barely answer any questions. Patient states she is on a blood pressure medication, but Metoprolol has not been filled since 07/30/23 for 30 days, and was not in her belongings of many medication bottles. Patient did have Flovent inhaler in her belongings, this was last filled 08/11/22, and was left off the medication list also. Patient states she is not taking Lasix due to frequent urination, but this was last filled 06/01 for 90 days.
--- NOTE | 2024-06-29 08:46 | PC.NURSE ---
assumed care of patient at 0700, patient is awake and alert, ate breakfast sitting up. patient is alert and oriented at time, mentation varies. patient hsa temp sensing pierre in place, drained aprox 600 cc isrrael urine this morning. patient noted to have copious liquid stool, patient cleaned up, new gowns, linens and pads, kym care completed. patient states she has all over body pain from laying on wood floor x5days. patient noted to have incontinence related excoriation on most of lower backside- sacrum, gluteal folds, back of thighs, inner thighs and kym region. patient noted to have raw/redness under bilat breasts, right breast noted to be worse. patient medicated per MAR with nystatin powder to all regions. patient bilat lower legs noted to be red and edematous- states she has lymphedema. patient has redness to bilat iliac crests under skin folds. gluteal folds have open pressure wounds draining pus like fluid. inpatient attending made aware of patient skin condition. patient remains in afib rate low 100s. VSS at this time. patient repositioned from right to left side off bottom.
[2024-06-29] MEDS: Cyanocobalamin (Vitamin B-12) 100 MCG TABLET 50 MCG PO (09:25)
[2024-06-29] MEDS: Magnesium Oxide 400 MG TABLET 200 MG PO (09:25)
[2024-06-29] MEDS: Omeprazole 40 MG CAPSULE.DR PO (09:25)
[2024-06-29] MEDS: Memantine HCl 5 MG TABLET PO ×2 (09:25→20:11)
[2024-06-29] MEDS: Famotidine 20 MG TABLET PO ×2 (09:25→20:11)
[2024-06-29] MEDS: Escitalopram Oxalate 20 MG TABLET PO (09:25)
[2024-06-29] MEDS: Metoprolol Tartrate 12.5 MG HALFTAB PO ×2 (09:25→20:11)
[2024-06-29] MEDS: Multivitamin TABLET 1 TAB PO (09:25)
--- NOTE | 2024-06-29 11:18 | PC.NURSE ---
patient transferred into hospital bed for comfort, repositioned. patient currently on left side, heals elevated with pillows. patient is currently asleep, resp even and unlabored.
--- NOTE | 2024-06-29 12:25 | PC.NURSE ---
patient resting quietly, resp even and unlabored, remains in afib, rate controlled low 100s. patient states she has 10/10 pain, reached out to inpatient attending for proper pain control medication. patient is alert and oriented. patient repositioned onto right side at this time. pierre cath draining dark yellow urine.
--- NOTE | 2024-06-29 12:34 | PC.NURSE ---
patient requests no visitors until admission room available, states she just wants to rest
--- NOTE | 2024-06-29 15:05 | MHC.CM.PN ---
Addendum entered by Candida Mims 06/29/24 15:25: Protective services report submitted to [facility] on behalf of pt. CM was informed today by [place] [employer]. Original Note: IMM 06/29/24, Pt. lives alone, she does not have any home health services, for DME, she said she has started to use a 3 way roller. She said that her HCP is: Cat Torres. She confirmed PCP is: Kallie Guerrero. CM discussed services from [facility] like an emergency pendant and household chore assistance, pt said that she would love that. Pt. informed CM that she has had a hoarding problem, following her 's long illness and , she bought things. SHe is very agreeable and open to STR, having help come in to clean out house and elder services. CM received a call from Rosette Denson, the public health nurse for [place], , she said that the pt.'s home may be condemned based on report and photos that the mixer and scaler submitted when they picked her ip. CM will explore options resources for pt. on companies that can help her to clean out her house. DCP: STR. CM to follow for DC needs.
[2024-06-29] MEDS: Morphine Sulfate 2 MG/ML CARTRIDGE IVPUSH (15:21)
[2024-06-29] MEDS: Nystatin Powder 15 GM BOTTLE 1 APPL TOPICAL (15:57)
--- NOTE | 2024-06-29 15:58 | PC.NURSE ---
patient noted to be incontinent of liquid stool, inpatient attending made aware, rectal tube placed for skin integrity. patient skin remains red and raw, nystatin powder placed on all open/raw areas. patient repositioned onto left side. linens are clean, dry and intact. 300cc urine emptied from patient pierre bag. patient vss at this time
[2024-06-29] MEDS: Rivaroxaban 20 MG TABLET PO (17:37)
--- NOTE | 2024-06-29 19:08 | HO.SKINPHOTO ---
Location:sacrum and buttocks Category: Stage: Length: Width: Depth: cm Location: Category: Stage: Length: Width: Depth: cm Location: Category: Stage: Length: Width: Depth: cm Location: Category: Stage: Length: Width: Depth: cm Location: Category: Stage: Length: Width: Depth: cm Location: Category: Stage: Length: Width: Depth: cm
[2024-06-29] MEDS: 0.9 % Sodium Chloride Flush 3 ML SYRINGE IVFLUSH (20:12)
[2024-06-29] MEDS: Atorvastatin Calcium 80 MG TABLET 20 MG PO (20:12)
[2024-06-29] MEDS: Melatonin 3 MG TABLET 6 MG PO (20:15)
[2024-06-29] MEDS: vancomycin HCL 1,500 MG in 0.9 % Sodium Chloride 500 ML 333.33 MG IV (22:51)
[2024-06-30] VITALS (7 sets, daily range): BP systolic 107–149; BP diastolic 59–78; PULSE 91–110; RESP 18–20; TEMP 36.3–36.8; O2SAT 93–100; BMI 31.1
[2024-06-30] MEDS: Piperacillin Sodium/Tazobactam 4.5 GM in 0.9 % Sodium Chloride 100 ML IV ×2 (00:39→05:44)
[2024-06-30] MEDS: Omeprazole 40 MG CAPSULE.DR PO (05:44)
[2024-06-30] MEDS: Acetaminophen 325 MG TABLET 650 MG PO (06:01)
[2024-06-30 08:45] LABS: Creatinine Clr Calc Pharmacy 81.9; Estimated Glomerular Filt Rate > 60
[2024-06-30] MEDS: Fluticasone/Vilanterol 100/25 BLST.W.DEV 1 PUFF INHALE (08:57)
[2024-06-30] MEDS: Memantine HCl 5 MG TABLET PO ×2 (09:44→19:30)
[2024-06-30] MEDS: Metoprolol Tartrate 12.5 MG HALFTAB PO ×2 (09:44→19:31)
[2024-06-30] MEDS: Escitalopram Oxalate 20 MG TABLET PO (09:44)
[2024-06-30] MEDS: Magnesium Oxide 400 MG TABLET 200 MG PO (09:44)
[2024-06-30] MEDS: Multivitamin TABLET 1 TAB PO (09:44)
[2024-06-30] MEDS: 0.9 % Sodium Chloride Flush 3 ML SYRINGE IVFLUSH ×3 (09:44→19:41)
[2024-06-30] MEDS: Cyanocobalamin (Vitamin B-12) 100 MCG TABLET 50 MCG PO (09:44)
[2024-06-30] MEDS: Digoxin 0.125 MG TABLET PO (09:44)
--- NOTE | 2024-06-30 10:31 | MHC.CM.PN ---
Per rounds, pt. is not ready to DC, and DCP will be to STR, referrals out. CM will give pt. info. on cleaning companies to help her with cleaning out her home when she is ready.
--- NOTE | 2024-06-30 11:02 | HO.SKINPHOTO ---
Location:right inner thigh Category: Stage: Length: Width: Depth: cm Location: Category: Stage: Length: Width: Depth: cm Location: Category: Stage: Length: Width: Depth: cm Location: Category: Stage: Length: Width: Depth: cm Location: Category: Stage: Length: Width: Depth: cm Location: Category: Stage: Length: Width: Depth: cm
--- NOTE | 2024-06-30 12:30 | CA_ITS ---
Transthoracic Echocardiogram Patient (Last, First, Middle): Madelyn Da Silva B Gender: Female Date of : 1940 Age: 83 Procedure Date: 06/30/2024 Procedure Type: Transthoracic Echocardiogram [place] [facility] [place]: 170.18 cm Weight: 89.81 kg BSA: 2.01 m2 Heart Rate: 91 bpm BP: 112 / 64 mmHg Toy Painter: Referring MD: Nathan Jones MD Symptoms: bacteremia Study Quality: Adequate ECG Rhythm: Undetermined Conclusions: - The left ventricular systolic function is normal. The visually estimated ejection fraction is between 55-60%. - No obvious valvular pathology seen on this study. Findings Left Ventricle Normal left ventricular cavity size. The left ventricular systolic function is normal. The visually estimated ejection fraction is between 55-60%. There is no evidence of regional wall motion abnormalities. Diastolic function is indeterminate on the basis of available data. There is mild septal asymmetric hypertrophy. Right Ventricle Normal right ventricular cavity size and systolic function. Atria Both atria are normal in size. Aortic Valve There is a normal trileaflet aortic valve. There is no aortic valve stenosis. Trace to mild aortic regurgitation. Mitral Valve The mitral valve appears normal. There is trace mitral valve regurgitation. There is no mitral valve stenosis. Pulmonic Valve There is trace pulmonic valve regurgitation. Tricuspid Valve Normal tricuspid valve structure. There is mild tricuspid valve regurgitation. There is no evidence of pulmonary hypertension. Great Vessels The asc aorta is normal in size. Venous The inferior vena cava is normal in size and collapses greater than 50% with inspiration. Pericardium/Pleural There is no evidence of pericardial effusion. Prior Study Comparison No significant change compared to prior study dated: 07/13/2023. Recommendations, Care & Conclusions No obvious valvular pathology seen on this study. Measurements 2D Linear Measurements LVOT Diam: 1.90 3.0+(-)1.3 cm Mitral Valve MV VTI: 0.24 MV Pk Carlton: 1.28 MV Mn Carlton: 0.61 MV Pk Grad: 7.00 MV Mn Grad: 2.00 MV Pk E: 1.14 MV Decel Time: 135.00 E'Lateral: 12.40 E'Medial: 10.40 E/E' Med: 11.00 E/E' Lat: 9.20 PHT: 39.00 MVA PHT: 5.64 MVA Continuity: 2.19 Decel [place]: 8.47 Aortic Valve AoV Pk Carlton: 1.29 AoV Mn [place]: 0.86 AoV VTI: 0.24 AoV Pk Grad: 7.00 Aov Mn Grad: 4.00 ANDREW Cont.VTI: 2.19 LVOT LVOT Pk [place]: 0.92 LVOT Mn [place]: 0.67 LVOT VTI: 0.18 LVOT Pk Grad: 3.00 LVOT Mn Grad: 2.00 LVOT Diam: 1.90 LVOT Area: 2.84 Diastolic Function MV Pk E: 1.14 E'Medial: 10.40 E/E' Med: 11.00 E' Laterial: 12.40 E/E' Lat: 9.20 Right Ventricle TAPSE (mm): 24.80 TVS' Carl[place]: 10.20 Tricuspid Valve TR Pk Carl[place]: 2.61 TR Pk Grad: 27.00 Great Vessels Aorta Sinus of Valsalva: 3.40 2.0-3.5 cm Ao Asc: 3.30 2.1-3.4 cm Pulmonary Valve PV Pk Carl[place]: 1.06 Peak PV Grad: 4.00 Updated in Other Vendor System with Status of Final Harjeet Sesay MD electronically signed on 07/01/2024 8:56:45 AM with status of Final
--- NOTE | 2024-06-30 12:31 | HO.PM.IMPN ---
Subjective Subjective Date of Service: 06/30/24 Interval History: f/u on wound infection staph aureus bacteremia Physical Exam Vital Signs: Vital Signs: Last Vital Signs Temp 97.6 F 06/30/24 11:59 Pulse 95 06/30/24 11:59 Resp 18 06/30/24 11:59 BP 112/64 06/30/24 11:59 Pulse Ox 96 06/30/24 11:59 O2 Del Method Room Air 06/30/24 11:59 BMI result Body Mass Index 31.1 Elderly female lying in bed in no distress Neck supple, no JVD Irregularly irregular, S1-S2 heard Regular breath sounds bilaterally, no wheezing or crackles appreciated Abdomen soft nontender, no guarding, no rigidity Patient is awake, alert and oriented x2 ; no focal motor deficit Intertrigo + under breast skin folds and abdominal folds Abrasion and skin breakdown over the sacral region with foul-smelling purulent drainage Psych: Normal mood Venous stasis changes over bilateral lower extremities Objective Data Active Medications Acetaminophen (Acetaminophen 325 Mg Tablet) 650 mg PO Q6H PRN PRN Reason: Pain, Mild 1-3,fever,headache Last Admin: 06/30/24 06:01 Dose: 650 mg Documented By: MOJGAN Atorvastatin Calcium (Atorvastatin Calcium 80 Mg Tablet) 20 mg PO BEDTIME [facility] Last Admin: 06/29/24 20:12 Dose: 20 mg Documented By: MOJGAN Calcium Carbonate (Calcium Carbonate 750 Mg Tab.Chew) 750 mg PO Q4H PRN PRN Reason: Heartburn Cefazolin Sodium (Cefazolin Sodium 1 Gm Vial) 2 gm IVPUSH Q8H [facility] Cyanocobalamin (Cyanocobalamin (Vitamin B-12) 100 Mcg Tablet) 50 mcg PO DAILY [facility] Last Admin: 06/30/24 09:44 Dose: 50 mcg Documented By: BRITNEY Digoxin (Digoxin 0.125 Mg Tablet) 0.125 mg PO MOWEFR [facility]; Protocol Last Admin: 06/30/24 09:44 Dose: 0.125 mg Documented By: BRITNEY Escitalopram Oxalate (Escitalopram Oxalate 20 Mg Tablet) 20 mg PO DAILY [facility] Last Admin: 06/30/24 09:44 Dose: 20 mg Documented By: BRITNEY Famotidine (Famotidine 20 Mg Tablet) 20 mg PO BEDTIME [facility] Last Admin: 06/29/24 20:11 Dose: 20 mg Documented By: MOJGAN Fluticasone Propionate (Fluticasone Propionate Nasal 16 Gm [place]) 1 spray NOSTRIL-B DAILY [facility] Last Admin: 06/29/24 09:39 Dose: Not Given Documented By: JUNE Non-Admin Reason: Med Not Available Fluticasone/Vilanterol (Fluticasone/Vilanterol 100/25 Blst.W.Dev) 1 puff INHALE RDAILY [facility] Last Admin: 06/30/24 08:57 Dose: 1 puff Documented By: SMITA Vancomycin HCl 1,500 mg/ (Sodium Chloride) 500 mls @ 333.333 mls/hr IV Q24H [facility] Last Infusion: 06/30/24 00:22 Dose: Infused Documented By: MOJGAN Magnesium Hydroxide (Milk Of Magnesia 30 Ml Oral.Susp) 30 ml PO DAILY PRN PRN Reason: Constipation Magnesium Oxide (Magnesium Oxide 400 Mg Tablet) 200 mg PO DAILY [facility] Last Admin: 06/30/24 09:44 Dose: 200 mg Documented By: BRITNEY Melatonin (Melatonin 3 Mg Tablet) 6 mg PO BEDTIME PRN PRN Reason: Insomnia Last Admin: 06/29/24 20:15 Dose: 6 mg Documented By: MOJGAN Memantine (Memantine Hcl 5 Mg Tablet) 5 mg PO BID [facility] Last Admin: 06/30/24 09:44 Dose: 5 mg Documented By: BRITNEY Metoprolol Tartrate (Metoprolol Tartrate 12.5 Mg Halftab) 12.5 mg PO BID [facility]; Protocol Last Admin: 06/30/24 09:44 Dose: 12.5 mg Documented By: BRITNEY Morphine Sulfate (Morphine Sulfate 2 Mg/Ml Cartridge) 2 mg IVPUSH Q4H PRN; Protocol PRN Reason: Pain, Severe (Pain Scale 7-10) Last Admin: 06/29/24 15:21 Dose: 2 mg Documented By: JUNE Multivitamins/Vitamin C (Multivitamin Tablet) 1 tab PO DAILY [facility] Last Admin: 06/30/24 09:44 Dose: 1 tab Documented By: BRITNEY Nystatin (Nystatin Powder 15 Gm Bottle) 1 appl TOPICAL TID [facility]; Protocol Last Admin: 06/30/24 00:50 Dose: Not Given Documented By: MOJGAN Non-Admin Reason: Med Not Available Omeprazole (Omeprazole 40 Mg Shira.) 40 mg PO DAILY@0630 [facility] Last Admin: 06/30/24 05:44 Dose: 40 mg Documented By: MOJGAN Ondansetron HCl (Ondansetron Hcl 4 Mg/2 Ml Vial) 4 mg IVPUSH Q8H PRN PRN Reason: Nausea and Vomiting Pharmacy Consult (Consult Rx Vancomycin Dosing) 1 each MISCELLANE DAILY PRN PRN Reason: Consult order Rivaroxaban (Rivaroxaban 20 Mg Tablet) 20 mg PO DAILY@1700 [facility] Last Admin: 06/29/24 17:37 Dose: 20 mg Documented By: JUNE Sodium Chloride (0.9 % Sodium Chloride Flush 3 Ml Syringe) 3 ml IVFLUSH QSHIFT [facility] Last Admin: 06/30/24 09:44 Dose: 3 ml Documented By: SIENA Labs 06/29/24 04:24 06/30/24 07:15 Labs: Laboratory Results - last 24 hr 06/30/24 07:15 Hold Purple Top SEE NOTE Estim Creat Clear Calc 81.9 Estimated GFR > 60 Microbiology Microbiology Results: Microbiology 06/28/24 Unknown Urine Culture - Final Urine clean catch - Clean Catch Midstream 06/28/24 22:17 Blood Culture - Preliminary Blood - Venous Staphylococcus species 06/28/24 22:16 Blood Culture - Preliminary Blood - Venous Staphylococcus species Assessment and Plan (1) Atrial fibrillation with rapid ventricular response: Status: Acute (2) Sepsis: Status: Acute (3) Bacteremia: Status: Acute Plan This is a 83-year-old female with pertinent history of moderate persistent asthma not on home oxygen, lower extremity lymphedema with venous stasis changes, paroxysmal atrial fibrillation on Xarelto, history of PE due to noncompliance with anticoagulation, history of TIA, mood disorder, gastroesophageal reflux disease, mixed hyperlipidemia, mild cognitive disorder who was brought to the emergency department for evaluation after being found on the ground at home. Severe sepsis due to infected sacral decubitus injury + intertrigo with secondary bacterial infection and now Staph Aureus bacteremia she is on vaco and zosyn, will change to kefzol 2 g q8, given no mrsa. get ID consult echocardiogram to rule vegetations AFib with RVR d/t not taking her meds x 4 days, now rate controlled continue dig and metoprolol, xarelto Acute lactic acidosis due to sepsis Elevated troponin Type 2 in the setting of sepsis and AFib with RVR Mood disorder: Continue home mood stabilizers Cognitive disorder: On memantine. Maintain sleep-wake cycle Gastroesophageal reflux disease: On PPI Mixed hyperlipidemia: On statin Moderate persistent asthma: No exacerbation during admission. Continue home inhaler DVT prophylaxis: Xarelto Full code Admit as inpatient and will require two night minimum hospital stay for IV antibiotics, monitoring of heart rate (as above), which is not possible in a lesser acute setting. Quality Stroke Does the patient have a stroke diagnosis?: No VTE Prior VTE?: No VTE Risk Level:: Medical - moderate - high VTE Device Contraindication: Treatment Not Indicated VTE Drug Contraindication: N/A - Med Ordered
[2024-06-30] MEDS: ceFAZolin Sodium/Dextrose,Iso 2 GM/50 ML PIGGYBACK IV ×2 (14:05→20:03)
[2024-06-30] MEDS: Nystatin Powder 15 GM BOTTLE 1 APPL TOPICAL ×3 (14:07→20:03)
[2024-06-30] MEDS: Fluticasone Propionate Nasal 16 GM SPRAY 1 SPRAY NOSTRIL-B (14:07)
--- NOTE | 2024-06-30 14:37 | MHC.CLN ---
CONSULT PT WITH INCREASED NUTRITION RISK R/T PRESSURE INJURY PO INTAKE 75-100% CARDIAC DIET RECOMMEND ADDING ENSURE BID TO PROMOTE WOUND HEALING SUPP TO PROVIDE 700KCALS, 40G PROTEIN MONITOR PO INTAKE AND ENCOURAGE SUPPLEMENTS SEE FULL CLINICAL NUTRITION ASSESSMENT
[2024-06-30] MEDS: Rivaroxaban 20 MG TABLET PO (17:33)
[2024-06-30] MEDS: Atorvastatin Calcium 80 MG TABLET 20 MG PO (19:31)
[2024-06-30] MEDS: Famotidine 20 MG TABLET PO (19:32)
[2024-06-30] MEDS: Calcium Carbonate 750 MG TAB.CHEW PO (19:35)
[2024-06-30] MEDS: Melatonin 3 MG TABLET 6 MG PO (19:35)
[2024-06-30 20:27] LABS: Vancomycin Random 9.1 mcg/mL (15-20)
[2024-06-30] MEDS: vancomycin HCL 1,000 MG in 0.9 % Sodium Chloride 250 ML 270 MG IV (21:33)
--- NOTE | 2024-06-30 22:31 | W.PM.IDCN ---
History of Present Illness Data of Consult Service Date: 06/30/24 Requesting physician: Nathan Jones Primary Care Provider: Unknown Physician HPI Reason for consult: staph bacteremia She presents with fall. She erik ill and staph species' BLood Await final culture blood If stpha Review of Systems Review of Systems: Yes all other systems are reviewed and are negative [facility] Past Medical History Medical History History of upper gastrointestinal bleeding (~08/2021) History of TIA (transient ischemic attack) (~2018) Osteopenia (~2012) Bilateral pulmonary embolism (~06/2023) Atrial fibrillation with RVR Moderate persistent asthma Family History Family History Father No problems noted. Mother Cerebral brain hemorrhage Surgical History Surgical History History of basal cell carcinoma (BCC) excision History of esophagogastroduodenoscopy (EGD) History of colonoscopy Social History Social History Household Members: None Housing: Apartment Do you presently have visiting nurse or other home services: No Alcohol intake: current Alcohol intake frequency: does not drink Patient Tobacco Use Status: Never used Tobacco e-Cigarette/Vaping Use: Never Used Second Hand Smoke Exposure: Yes Advance Directives Date on File: 09/15/21 service: No Current occupational status: retired Gender identity: Female Cognitive needs: No Hearing needs: No Vision needs: Yes Meds Allergies Allergy/AdvReac Type Severity Reaction Status Date / Time doxycycline Allergy Mild Rash Verified 06/28/24 20:48 lorazepam Allergy Unknown unknown Verified 06/28/24 20:48 pantoprazole Allergy Unknown NAUSEA Verified 06/28/24 20:48 amoxicillin [AMOXICILLIN] AdvReac Intermediate NAUSEA/VOMI Verified 06/28/24 20:48 TING Active Medications: Current Medications Acetaminophen (Acetaminophen 325 Mg Tablet) 650 mg PO Q6H PRN PRN Reason: Pain, Mild 1-3,fever,headache Last Admin: 06/30/24 06:01 Dose: 650 mg Atorvastatin Calcium (Atorvastatin Calcium 80 Mg Tablet) 20 mg PO BEDTIME [facility] Last Admin: 06/30/24 19:31 Dose: 20 mg Calcium Carbonate (Calcium Carbonate 750 Mg Tab.Chew) 750 mg PO Q4H PRN PRN Reason: Heartburn Last Admin: 06/30/24 19:35 Dose: 750 mg Cyanocobalamin (Cyanocobalamin (Vitamin B-12) 100 Mcg Tablet) 50 mcg PO DAILY [facility] Last Admin: 06/30/24 09:44 Dose: 50 mcg Digoxin (Digoxin 0.125 Mg Tablet) 0.125 mg PO MOWEFR [facility]; Protocol Last Admin: 06/30/24 09:44 Dose: 0.125 mg Escitalopram Oxalate (Escitalopram Oxalate 20 Mg Tablet) 20 mg PO DAILY [facility] Last Admin: 06/30/24 09:44 Dose: 20 mg Famotidine (Famotidine 20 Mg Tablet) 20 mg PO BEDTIME [facility] Last Admin: 06/30/24 19:32 Dose: 20 mg Fluticasone Propionate (Fluticasone Propionate Nasal 16 Gm [place]) 1 spray NOSTRIL-B DAILY [facility] Last Admin: 06/30/24 14:07 Dose: 1 spray Fluticasone/Vilanterol (Fluticasone/Vilanterol 100/25 Blst.W.Dev) 1 puff INHALE RDAILY [facility] Last Admin: 06/30/24 08:57 Dose: 1 puff Cefazolin Sodium/Dextrose (Ancef) 2 gm in 50 mls @ 100 mls/hr IV Q8H [facility] Last Infusion: 06/30/24 20:35 Dose: Infused Vancomycin HCl 1,000 mg/ (Sodium Chloride) 270 mls @ 270 mls/hr IV Q12H [facility] Last Admin: 06/30/24 21:33 Dose: 270 mls/hr Magnesium Hydroxide (Milk Of Magnesia 30 Ml Oral.Susp) 30 ml PO DAILY PRN PRN Reason: Constipation Magnesium Oxide (Magnesium Oxide 400 Mg Tablet) 200 mg PO DAILY [facility] Last Admin: 06/30/24 09:44 Dose: 200 mg Melatonin (Melatonin 3 Mg Tablet) 6 mg PO BEDTIME PRN PRN Reason: Insomnia Last Admin: 06/30/24 19:35 Dose: 6 mg Memantine (Memantine Hcl 5 Mg Tablet) 5 mg PO BID [facility] Last Admin: 06/30/24 19:30 Dose: 5 mg Metoprolol Tartrate (Metoprolol Tartrate 12.5 Mg Halftab) 12.5 mg PO BID [facility]; Protocol Last Admin: 06/30/24 19:31 Dose: 12.5 mg Morphine Sulfate (Morphine Sulfate 2 Mg/Ml Cartridge) 2 mg IVPUSH Q4H PRN; Protocol PRN Reason: Pain, Severe (Pain Scale 7-10) Last Admin: 06/29/24 15:21 Dose: 2 mg Multivitamins/Vitamin C (Multivitamin Tablet) 1 tab PO DAILY [facility] Last Admin: 06/30/24 09:44 Dose: 1 tab Nystatin (Nystatin Powder 15 Gm Bottle) 1 appl TOPICAL TID [facility]; Protocol Last Admin: 06/30/24 20:03 Dose: 1 appl Omeprazole (Omeprazole 40 Mg Capsule.Dr) 40 mg PO DAILY@0630 [facility] Last Admin: 06/30/24 05:44 Dose: 40 mg Ondansetron HCl (Ondansetron Hcl 4 Mg/2 Ml Vial) 4 mg IVPUSH Q8H PRN PRN Reason: Nausea and Vomiting Pharmacy Consult (Consult Rx Vancomycin Dosing) 1 each MISCELLANE DAILY PRN PRN Reason: Consult order Rivaroxaban (Rivaroxaban 20 Mg Tablet) 20 mg PO DAILY@1700 [facility] Last Admin: 06/30/24 17:33 Dose: 20 mg Sodium Chloride (0.9 % Sodium Chloride Flush 3 Ml Syringe) 3 ml IVFLUSH [facility]I Last Admin: 06/30/24 19:41 Dose: 3 ml Home Medications ?Medication ?Instructions ?Recorded ?Confirmed ?Last Taken ?Type memantine 5 mg tablet 5 mg PO BID 07/13/23 06/29/24 6 Days Ago History ~06/23/24 citalopram 40 mg tablet 40 mg PO DAILY 06/29/24 06/29/24 6 Days Ago History ~06/23/24 cyanocobalamin (vitamin B-12) 50 50 mcg PO DAILY 06/29/24 06/29/24 6 Days Ago History mcg tablet (Vitamin B-12) ~06/23/24 lactobacillus combination no.4 3 3,000 mmu cells PO DAILY 06/29/24 06/29/24 6 Days Ago History billion cell capsule (Probiotic) ~06/23/24 magnesium 200 mg tablet 200 mg PO DAILY 06/29/24 06/29/24 6 Days Ago History ~06/23/24 multivitamin 1 tab PO DAILY 06/29/24 06/29/24 6 Days Ago History ~06/23/24 omeprazole 40 mg capsule,delayed 40 mg PO DAILY@0630 06/29/24 06/29/24 6 Days Ago History release ~06/23/24 rivaroxaban 20 mg tablet 20 mg PO DAILY@1700 06/29/24 06/29/24 6 Days Ago History ~06/23/24 rosuvastatin 20 mg tablet 20 mg PO BEDTIME 06/29/24 06/29/24 6 Days Ago History ~06/23/24 Physical Exam Vital Signs: Vital Signs: Last Vital Signs Temp 98.2 F 06/30/24 19:15 Pulse 110 H 06/30/24 19:15 Resp 20 06/30/24 19:15 BP 149/70 H 06/30/24 19:15 Pulse Ox 98 06/30/24 19:15 O2 Del Method Room Air 06/30/24 19:15 BMI result Body Mass Index 31.1 Const: General: cooperative Orientation/consciousness: patient oriented x3 HEENT: Head: Yes normal to inspection Mouth: Normal oral and palatal mucosa present Eyes: General: appearance normal, both eyes and all related structures Pupils: Equal, round and reactive pupils present Resp: Effort & Inspection: normal respiratory effort Cardio: Rate: regular rate Rhythm: regular rhythm GI: Palpation (GI): Soft to palpation and nontender : General: Yes no CVA tenderness Back/Spine/Pelvis: Back: no CVA tenderness Skin: General skin exam: no rashes or lesions noted Neuro: General: patient oriented x3 Cranial nerves: Yes CN's II-XII intact bilaterally and Yes Equal, round and reactive pupils present Extrem: General: Yes normal to inspection Psych: Appearance: grossly normal Results Labs 07/03/24 06:53 07/03/24 06:53 Labs: BMP 06/30/24 07:15 Creatinine 0.61 Microbiology Microbiology Results: Microbiology 06/28/24 Unknown Urine clean catch - Clean Catch Midstream Urine Culture - Final 06/28/24 22:17 Blood - Venous Blood Culture - Preliminary Staphylococcus species 06/28/24 22:16 Blood - Venous Blood Culture - Preliminary Staphylococcus species Assessment and Plan (1) Bacteremia: Status: Acute Plan Possibly Vancomycin for six weeks if staph aureus
[2024-07-01] VITALS: BP 115/71; PULSE 96; RESP 20; TEMP 36.4; O2SAT 91
[2024-07-01 03:26] VITALS: BP 131/67; PULSE 101; RESP 20; TEMP 36.9; O2SAT 95
[2024-07-01] MEDS: ceFAZolin Sodium/Dextrose,Iso 2 GM/50 ML PIGGYBACK IV ×3 (04:07→20:24)
[2024-07-01] MEDS: Omeprazole 40 MG CAPSULE.DR PO (05:29)
[2024-07-01 06:51] LABS: Creatinine Clr Calc Pharmacy 84.7; Estimated Glomerular Filt Rate > 60
[2024-07-01 06:56] VITALS: BP 119/72; PULSE 101; RESP 18; TEMP 36.8; O2SAT 95
[2024-07-01] MEDS: Metoprolol Tartrate 12.5 MG HALFTAB PO ×2 (08:18→20:24)
[2024-07-01] MEDS: Cyanocobalamin (Vitamin B-12) 100 MCG TABLET 50 MCG PO (08:19)
[2024-07-01] MEDS: Multivitamin TABLET 1 TAB PO (08:19)
[2024-07-01] MEDS: Memantine HCl 5 MG TABLET PO ×2 (08:19→20:24)
[2024-07-01] MEDS: Escitalopram Oxalate 20 MG TABLET PO (08:19)
[2024-07-01] MEDS: Magnesium Oxide 400 MG TABLET 200 MG PO (08:20)
[2024-07-01] MEDS: Acetaminophen 325 MG TABLET 650 MG PO ×3 (08:20→22:00)
[2024-07-01] MEDS: vancomycin HCL 1,000 MG in 0.9 % Sodium Chloride 250 ML 270 MG IV (08:24)
[2024-07-01] MEDS: Fluticasone Propionate Nasal 16 GM SPRAY 1 SPRAY NOSTRIL-B (08:24)
[2024-07-01] MEDS: Nystatin Powder 15 GM BOTTLE 1 APPL TOPICAL ×3 (08:25→20:42)
[2024-07-01] MEDS: 0.9 % Sodium Chloride Flush 3 ML SYRINGE IVFLUSH ×3 (08:27→20:42)
--- NOTE | 2024-07-01 10:20 | P.PNIM_ITS ---
Subjective Subjective Date of Service: 07/01/24 Interval History: f/u on wound infection staph aureus bacteremia Physical Exam 2 Vital Signs: Vital Signs: Last Vital Signs Temp 98.2 F 07/01/24 06:56 Pulse 101 H 07/01/24 06:56 Resp 18 07/01/24 06:56 BP 119/72 07/01/24 06:56 Pulse Ox 95 07/01/24 06:56 O2 Del Method Room Air 07/01/24 06:56 BMI result Body Mass Index 31.1 Elderly female lying in bed in no distress Neck supple, no JVD Irregularly irregular, S1-S2 heard Regular breath sounds bilaterally, no wheezing or crackles appreciated Abdomen soft nontender, no guarding, no rigidity Patient is awake, alert and oriented x2 ; no focal motor deficit Intertrigo + under breast skin folds and abdominal folds Abrasion and skin breakdown over the sacral region with foul-smelling purulent drainage Psych: Normal mood Venous stasis changes over bilateral lower extremities Objective Data Active Medications Acetaminophen (Acetaminophen 325 Mg Tablet) 650 mg PO Q6H PRN PRN Reason: Pain, Mild 1-3,fever,headache Last Admin: 07/01/24 08:20 Dose: 650 mg Documented By: KATHRYN Atorvastatin Calcium (Atorvastatin Calcium 80 Mg Tablet) 20 mg PO BEDTIME [facility] Last Admin: 06/30/24 19:31 Dose: 20 mg Documented By: VAUGHN Calcium Carbonate (Calcium Carbonate 750 Mg Tab.Chew) 750 mg PO Q4H PRN PRN Reason: Heartburn Last Admin: 06/30/24 19:35 Dose: 750 mg Documented By: VAUGHN Cyanocobalamin (Cyanocobalamin (Vitamin B-12) 100 Mcg Tablet) 50 mcg PO DAILY [facility] Last Admin: 07/01/24 08:19 Dose: 50 mcg Documented By: KATHRYN Digoxin (Digoxin 0.125 Mg Tablet) 0.125 mg PO MOWEFR [facility]; Protocol Last Admin: 06/30/24 09:44 Dose: 0.125 mg Documented By: BRITNEY Escitalopram Oxalate (Escitalopram Oxalate 20 Mg Tablet) 20 mg PO DAILY [facility] Last Admin: 07/01/24 08:19 Dose: 20 mg Documented By: KATHRYN Famotidine (Famotidine 20 Mg Tablet) 20 mg PO BEDTIME [facility] Last Admin: 06/30/24 19:32 Dose: 20 mg Documented By: VAUGHN Fluticasone Propionate (Fluticasone Propionate Nasal 16 Gm [place]) 1 spray NOSTRIL-B DAILY [facility] Last Admin: 07/01/24 08:24 Dose: 1 spray Documented By: KATHRYN Fluticasone/Vilanterol (Fluticasone/Vilanterol 100/25 Blst.W.Dev) 1 puff INHALE RDAILY [facility] Last Admin: 07/01/24 07:46 Dose: Not Given Documented By: TEE Non-Admin Reason: Patient Asleep Cefazolin Sodium/Dextrose (Ancef) 2 gm in 50 mls @ 100 mls/hr IV Q8H [facility] Last Infusion: 07/01/24 04:43 Dose: Infused Documented By: VAUGHN Vancomycin HCl 1,000 mg/ (Sodium Chloride) 270 mls @ 270 mls/hr IV Q12H [facility] Last Admin: 07/01/24 08:24 Dose: 270 mls/hr Documented By: KATHRYN Magnesium Hydroxide (Milk Of Magnesia 30 Ml Oral.Susp) 30 ml PO DAILY PRN PRN Reason: Constipation Magnesium Oxide (Magnesium Oxide 400 Mg Tablet) 200 mg PO DAILY [facility] Last Admin: 07/01/24 08:20 Dose: 200 mg Documented By: KATHRYN Melatonin (Melatonin 3 Mg Tablet) 6 mg PO BEDTIME PRN PRN Reason: Insomnia Last Admin: 06/30/24 19:35 Dose: 6 mg Documented By: VAUGHN Memantine (Memantine Hcl 5 Mg Tablet) 5 mg PO BID [facility] Last Admin: 07/01/24 08:19 Dose: 5 mg Documented By: KATHRYN Metoprolol Tartrate (Metoprolol Tartrate 12.5 Mg Halftab) 12.5 mg PO BID [facility]; Protocol Last Admin: 07/01/24 08:18 Dose: 12.5 mg Documented By: KATHRYN Morphine Sulfate (Morphine Sulfate 2 Mg/Ml Cartridge) 2 mg IVPUSH Q4H PRN; Protocol PRN Reason: Pain, Severe (Pain Scale 7-10) Last Admin: 06/29/24 15:21 Dose: 2 mg Documented By: JUNE Multivitamins/Vitamin C (Multivitamin Tablet) 1 tab PO DAILY [facility] Last Admin: 07/01/24 08:19 Dose: 1 tab Documented By: KATHRYN Nystatin (Nystatin Powder 15 Gm Bottle) 1 appl TOPICAL TID [facility]; Protocol Last Admin: 07/01/24 08:25 Dose: 1 appl Documented By: KATHRYN Omeprazole (Omeprazole 40 Mg Capsule.) 40 mg PO DAILY@0630 [facility] Last Admin: 07/01/24 05:29 Dose: 40 mg Documented By: VAUGHN Ondansetron HCl (Ondansetron Hcl 4 Mg/2 Ml Vial) 4 mg IVPUSH Q8H PRN PRN Reason: Nausea and Vomiting Pharmacy Consult (Consult Rx Vancomycin Dosing) 1 each MISCELLANE DAILY PRN PRN Reason: Consult order Rivaroxaban (Rivaroxaban 20 Mg Tablet) 20 mg PO DAILY@1700 [facility] Last Admin: 06/30/24 17:33 Dose: 20 mg Documented By: BRITNEY Sodium Chloride (0.9 % Sodium Chloride Flush 3 Ml Syringe) 3 ml IVFLUSH QSHIFT [facility] Last Admin: 07/01/24 08:27 Dose: 3 ml Documented By: KATHRYN Labs 06/29/24 04:24 07/01/24 06:21 Labs: Laboratory Results - last 24 hr 06/30/24 07/01/24 19:57 06:21 Hold Purple Top SEE NOTE Estim Creat Clear Calc 84.7 Estimated GFR > 60 Random Vancomycin 9.1 L Microbiology Microbiology Results: Microbiology 06/28/24 22:17 Blood Culture - Final Blood - Venous Staphylococcus epidermidis 06/28/24 22:16 Blood Culture - Final Blood - Venous Staphylococcus epidermidis 06/28/24 Unknown Urine Culture - Final Urine clean catch - Clean Catch Midstream Assessment and Plan (1) Atrial fibrillation with rapid ventricular response: Status: Acute (2) Sepsis: Status: Acute (3) Bacteremia: Status: Acute Plan This is a 83-year-old female with pertinent history of moderate persistent asthma not on home oxygen, lower extremity lymphedema with venous stasis changes, paroxysmal atrial fibrillation on Xarelto, history of PE due to noncompliance with anticoagulation, history of TIA, mood disorder, gastroesophageal reflux disease, mixed hyperlipidemia, mild cognitive disorder who was brought to the emergency department for evaluation after being found on the ground at home. Severe sepsis due to infected sacral decubitus injury + intertrigo with secondary bacterial infection and now Staph epi bacteremia she is on vaco and zosyn, changed to vanco and kefzol 06/30, ID recommends possible vanco echocardiogram: no vegetations AFib with RVR d/t not taking her meds x 4 days, now rate controlled continue dig and metoprolol, xarelto Acute lactic acidosis due to sepsis Elevated troponin Type 2 in the setting of sepsis and AFib with RVR Mood disorder: Continue home mood stabilizers Cognitive disorder: On memantine. Maintain sleep-wake cycle Gastroesophageal reflux disease: On PPI Mixed hyperlipidemia: On statin Moderate persistent asthma: No exacerbation during admission. Continue home inhaler DVT prophylaxis: Xarelto Full code need for inpt: bacteremia on iv Abx Quality Stroke Does the patient have a stroke diagnosis?: No VTE Prior VTE?: No VTE Risk Level:: Medical - moderate - high VTE Device Contraindication: Treatment Not Indicated VTE Drug Contraindication: N/A - Med Ordered
[2024-07-01 12:00] VITALS: BP 112/72; PULSE 100; RESP 20; TEMP 37.1; O2SAT 95
[2024-07-01 15:58] VITALS: BP 122/72; PULSE 96; RESP 18; TEMP 37.2; O2SAT 96
[2024-07-01] MEDS: Rivaroxaban 20 MG TABLET PO (16:16)
[2024-07-01 19:34] VITALS: BP 130/71; PULSE 107; RESP 20; TEMP 37; O2SAT 95
[2024-07-01 19:40] LABS: Vancomycin Random 11.7 mcg/mL (15-20)
--- NOTE | 2024-07-01 19:58 | HE.PHANOTE ---
VANCO DOSE ADJUSTMENT BASED ON SCR AND TROUGH OF 11.7 DOSE INCREASED TO 1250 Q 12H. NEXT LEVEL 07/02 @ 1900
[2024-07-01] MEDS: Famotidine 20 MG TABLET PO (20:24)
[2024-07-01] MEDS: Atorvastatin Calcium 80 MG TABLET 20 MG PO (20:24)
[2024-07-01] MEDS: Melatonin 3 MG TABLET 6 MG PO (20:35)
[2024-07-01] MEDS: vancomycin HCL 1,250 MG in 0.9 % Sodium Chloride 250 ML 166.67 MG IV (21:58)
[2024-07-02] VITALS: BP 134/74; PULSE 101; RESP 20; TEMP 36.4; O2SAT 94
[2024-07-02 04:42] VITALS: BP 109/74; PULSE 89; RESP 17; TEMP 36.6; O2SAT 97
[2024-07-02] MEDS: ceFAZolin Sodium/Dextrose,Iso 2 GM/50 ML PIGGYBACK IV ×3 (04:43→21:45)
[2024-07-02] MEDS: Omeprazole 40 MG CAPSULE.DR PO (04:45)
[2024-07-02 07:16] VITALS: BP 122/78; PULSE 86; RESP 18; TEMP 36.8; O2SAT 96
[2024-07-02 08:02] LABS: Creatinine Clr Calc Pharmacy 89.3; Estimated Glomerular Filt Rate > 60
[2024-07-02] MEDS: Fluticasone/Vilanterol 100/25 BLST.W.DEV 1 PUFF INHALE (08:48)
[2024-07-02] MEDS: Fluticasone Propionate Nasal 16 GM SPRAY 1 SPRAY NOSTRIL-B (08:49)
[2024-07-02] MEDS: Nystatin Powder 15 GM BOTTLE 1 APPL TOPICAL ×3 (08:49→21:46)
[2024-07-02] MEDS: Escitalopram Oxalate 20 MG TABLET PO (08:51)
[2024-07-02] MEDS: Memantine HCl 5 MG TABLET PO ×2 (08:51→21:46)
[2024-07-02] MEDS: Cyanocobalamin (Vitamin B-12) 100 MCG TABLET 50 MCG PO (08:51)
[2024-07-02] MEDS: Magnesium Oxide 400 MG TABLET 200 MG PO (08:51)
[2024-07-02] MEDS: Multivitamin TABLET 1 TAB PO (08:51)
[2024-07-02] MEDS: Acetaminophen 325 MG TABLET 650 MG PO (08:51)
[2024-07-02] MEDS: Metoprolol Tartrate 12.5 MG HALFTAB PO ×2 (08:51→21:46)
[2024-07-02] MEDS: 0.9 % Sodium Chloride Flush 3 ML SYRINGE IVFLUSH ×3 (08:53→21:46)
[2024-07-02] MEDS: vancomycin HCL 1,250 MG in 0.9 % Sodium Chloride 250 ML 166.67 MG IV ×2 (08:56→22:32)
--- NOTE | 2024-07-02 09:34 | HO.PM.IMPN ---
Subjective Subjective Date of Service: 07/02/24 Interval History: f/u on wound infection staph epi bacteremia\ no new issues, Physical Exam Vital Signs: Vital Signs: Last Vital Signs Temp 98.2 F 07/02/24 07:16 Pulse 86 07/02/24 07:16 Resp 18 07/02/24 07:16 BP 122/78 07/02/24 07:16 Pulse Ox 96 07/02/24 07:16 O2 Del Method Room Air 07/02/24 07:16 BMI result Body Mass Index 31.1 Elderly female lying in bed in no distress Neck supple, no JVD Irregularly irregular, S1-S2 heard Regular breath sounds bilaterally, no wheezing or crackles appreciated Abdomen soft nontender, no guarding, no rigidity Patient is awake, alert and oriented x2 ; no focal motor deficit Intertrigo + under breast skin folds and abdominal folds Abrasion and skin breakdown over the sacral region with foul-smelling purulent drainage Psych: Normal mood Venous stasis changes over bilateral lower extremities Objective Data Active Medications Acetaminophen (Acetaminophen 325 Mg Tablet) 650 mg PO Q6H PRN PRN Reason: Pain, Mild 1-3,fever,headache Last Admin: 07/02/24 08:51 Dose: 650 mg Documented By: KATHRYN Atorvastatin Calcium (Atorvastatin Calcium 80 Mg Tablet) 20 mg PO BEDTIME [facility] Last Admin: 07/01/24 20:24 Dose: 20 mg Documented By: VAUGHN Calcium Carbonate (Calcium Carbonate 750 Mg Tab.Chew) 750 mg PO Q4H PRN PRN Reason: Heartburn Last Admin: 06/30/24 19:35 Dose: 750 mg Documented By: VAUGHN Cyanocobalamin (Cyanocobalamin (Vitamin B-12) 100 Mcg Tablet) 50 mcg PO DAILY [facility] Last Admin: 07/02/24 08:51 Dose: 50 mcg Documented By: KATHRYN Digoxin (Digoxin 0.125 Mg Tablet) 0.125 mg PO MOWEFR [facility]; Protocol Last Admin: 06/30/24 09:44 Dose: 0.125 mg Documented By: BRITNEY Escitalopram Oxalate (Escitalopram Oxalate 20 Mg Tablet) 20 mg PO DAILY [facility] Last Admin: 07/02/24 08:51 Dose: 20 mg Documented By: KATHRYN Famotidine (Famotidine 20 Mg Tablet) 20 mg PO BEDTIME [facility] Last Admin: 07/01/24 20:24 Dose: 20 mg Documented By: VAUGHN Fluticasone Propionate (Fluticasone Propionate Nasal 16 Gm [place]) 1 spray NOSTRIL-B DAILY [facility] Last Admin: 07/02/24 08:49 Dose: 1 spray Documented By: KATHRYN Fluticasone/Vilanterol (Fluticasone/Vilanterol 100/25 Blst.W.Dev) 1 puff INHALE RDAILY [facility] Last Admin: 07/02/24 08:48 Dose: 1 puff Documented By: KATHRYN Cefazolin Sodium/Dextrose (Ancef) 2 gm in 50 mls @ 100 mls/hr IV Q8H [facility] Last Infusion: 07/02/24 05:21 Dose: Infused Documented By: VAUGHN Vancomycin HCl 1,250 mg/ (Sodium Chloride) 250 mls @ 166.667 mls/hr IV Q12H [facility] Last Admin: 07/02/24 08:56 Dose: 166.67 mls/hr Documented By: KATHRYN Magnesium Hydroxide (Milk Of Magnesia 30 Ml Oral.Susp) 30 ml PO DAILY PRN PRN Reason: Constipation Magnesium Oxide (Magnesium Oxide 400 Mg Tablet) 200 mg PO DAILY [facility] Last Admin: 07/02/24 08:51 Dose: 200 mg Documented By: KATHRYN Melatonin (Melatonin 3 Mg Tablet) 6 mg PO BEDTIME PRN PRN Reason: Insomnia Last Admin: 07/01/24 20:35 Dose: 6 mg Documented By: VAUGHN Memantine (Memantine Hcl 5 Mg Tablet) 5 mg PO BID [facility] Last Admin: 07/02/24 08:51 Dose: 5 mg Documented By: KATHRYN Metoprolol Tartrate (Metoprolol Tartrate 12.5 Mg Halftab) 12.5 mg PO BID [facility]; Protocol Last Admin: 07/02/24 08:51 Dose: 12.5 mg Documented By: KATHRYN Morphine Sulfate (Morphine Sulfate 2 Mg/Ml Cartridge) 2 mg IVPUSH Q4H PRN; Protocol PRN Reason: Pain, Severe (Pain Scale 7-10) Last Admin: 06/29/24 15:21 Dose: 2 mg Documented By: JUNE Multivitamins/Vitamin C (Multivitamin Tablet) 1 tab PO DAILY [facility] Last Admin: 07/02/24 08:51 Dose: 1 tab Documented By: KATHRYN Nystatin (Nystatin Powder 15 Gm Bottle) 1 appl TOPICAL TID [facility]; Protocol Last Admin: 07/02/24 08:49 Dose: 1 appl Documented By: KATHRYN Omeprazole (Omeprazole 40 Mg Capsule.) 40 mg PO DAILY@0630 [facility] Last Admin: 07/02/24 04:45 Dose: 40 mg Documented By: VAUGHN Ondansetron HCl (Ondansetron Hcl 4 Mg/2 Ml Vial) 4 mg IVPUSH Q8H PRN PRN Reason: Nausea and Vomiting Pharmacy Consult (Consult Rx Vancomycin Dosing) 1 each MISCELLANE DAILY PRN PRN Reason: Consult order Rivaroxaban (Rivaroxaban 20 Mg Tablet) 20 mg PO DAILY@1700 [facility] Last Admin: 07/01/24 16:16 Dose: 20 mg Documented By: KATHRYN Sodium Chloride (0.9 % Sodium Chloride Flush 3 Ml Syringe) 3 ml IVFLUSH QSHIFT [facility] Last Admin: 07/02/24 08:53 Dose: 3 ml Documented By: KATHRYN Labs 06/29/24 04:24 07/02/24 06:37 Labs: Laboratory Results - last 24 hr 07/01/24 07/02/24 19:00 06:37 Hold Purple Top SEE NOTE Estim Creat Clear Calc 89.3 Estimated GFR > 60 Random Vancomycin 11.7 L Microbiology Microbiology Results: Microbiology 06/28/24 22:17 Blood Culture - Final Blood - Venous Staphylococcus epidermidis 06/28/24 22:16 Blood Culture - Final Blood - Venous Staphylococcus epidermidis Assessment and Plan (1) Atrial fibrillation with rapid ventricular response: Status: Acute (2) Sepsis: Status: Acute (3) Bacteremia: Status: Acute Plan This is a 83-year-old female with pertinent history of moderate persistent asthma not on home oxygen, lower extremity lymphedema with venous stasis changes, paroxysmal atrial fibrillation on Xarelto, history of PE due to noncompliance with anticoagulation, history of TIA, mood disorder, gastroesophageal reflux disease, mixed hyperlipidemia, mild cognitive disorder who was brought to the emergency department for evaluation after being found on the ground at home. Severe sepsis due to infected sacral decubitus injury + intertrigo with secondary bacterial infection and now Staph epi bacteremia she is on vaco and zosyn, changed to vanco and kefzol 06/30, ID recommends possible vanco echocardiogram: no vegetations repeat cultures pending AFib with RVR d/t not taking her meds x 4 days, now rate controlled continue dig and metoprolol, xarelto Acute lactic acidosis due to sepsis Elevated troponin Type 2 in the setting of sepsis and AFib with RVR Mood disorder: Continue home mood stabilizers Cognitive disorder: On memantine. Maintain sleep-wake cycle Gastroesophageal reflux disease: On PPI Mixed hyperlipidemia: On statin Moderate persistent asthma: No exacerbation during admission. Continue home inhaler PT eval DVT prophylaxis: Xarelto Full code need for inpt: bacteremia on iv Abx Quality Stroke Does the patient have a stroke diagnosis?: No VTE Prior VTE?: No VTE Risk Level:: Medical - moderate - high VTE Device Contraindication: Treatment Not Indicated VTE Drug Contraindication: N/A - Med Ordered
[2024-07-02 11:35] VITALS: BP 105/63; PULSE 93; RESP 18; TEMP 36.7; O2SAT 92
[2024-07-02 15:37] VITALS: BP 120/63; PULSE 100; RESP 22; TEMP 37.4; O2SAT 96
[2024-07-02] MEDS: Rivaroxaban 20 MG TABLET PO (15:38)
[2024-07-02 19:01] VITALS: BP 116/88; PULSE 102; RESP 22; TEMP 36.9; O2SAT 100
[2024-07-02] MEDS: Atorvastatin Calcium 80 MG TABLET 20 MG PO (21:45)
[2024-07-02] MEDS: Famotidine 20 MG TABLET PO (21:46)
[2024-07-02] MEDS: Morphine Sulfate 2 MG/ML CARTRIDGE IVPUSH (21:47)
[2024-07-02] MEDS: Melatonin 3 MG TABLET 6 MG PO (22:03)
[2024-07-03] VITALS (7 sets, daily range): BP systolic 109–130; BP diastolic 58–75; PULSE 93–108; RESP 16–20; TEMP 36.3–37.2; O2SAT 93–99
[2024-07-03] MEDS: Omeprazole 40 MG CAPSULE.DR PO (05:50)
[2024-07-03] MEDS: ceFAZolin Sodium/Dextrose,Iso 2 GM/50 ML PIGGYBACK IV ×3 (06:02→20:49)
[2024-07-03 07:05] LABS: Hematocrit 35.6 % (37.0-47.0); Hemoglobin 11.4 g/dl (12.0-16.0); Mean Corpuscular Hemoglobin 29.8 pg (27.0-33.0); Mean Corpuscular Volume 93.2 fL (80.0-98.0); Mean Platelet Volume 11.5 fL (9.4-12.3); Platelet Count 188 X10*3/uL (160-400); Red Blood Count 3.82 X10*6/uL (4.20-5.50); White Blood Count 7.9 X10*3/uL (4.8-10.8)
[2024-07-03 07:20] LABS: Vancomycin Trough 19.2 mcg/mL (10.0-20.0)
[2024-07-03 07:21] LABS: Anion Gap 11 (12-20); Blood Urea Nitrogen 14 mg/dL (9-16); Calcium 8.3 mg/dL (8.4-10.2); Carbon Dioxide 27 mmol/L (22-29); Chloride 105 mmol/L (96-108); Creatinine Clr Calc Pharmacy 83.3; Estimated Glomerular Filt Rate > 60; Glucose Random 101 mg/dL (60-115); Potassium 3.8 mmol/L (3.3-5.1); Sodium 139 mmol/L (135-145)
--- NOTE | 2024-07-03 07:28 | HE.PHANOTE ---
LAWANDA Changing dose to 1000mg Q12H as trough came back on higher end. Next trough to be pulled 07/04 @0700, predicted AUC 455, trough 14.2. Renal function appears stable still so only decreased by a little.
[2024-07-03] MEDS: Fluticasone/Vilanterol 100/25 BLST.W.DEV 1 PUFF INHALE (07:56)
[2024-07-03] MEDS: vancomycin HCL 1,000 MG in 0.9 % Sodium Chloride 250 ML 270 MG IV ×2 (09:52→21:29)
[2024-07-03] MEDS: Magnesium Oxide 400 MG TABLET 200 MG PO (10:17)
[2024-07-03] MEDS: Multivitamin TABLET 1 TAB PO (10:17)
[2024-07-03] MEDS: Cyanocobalamin (Vitamin B-12) 100 MCG TABLET 50 MCG PO (10:18)
[2024-07-03] MEDS: Digoxin 0.125 MG TABLET PO (10:18)
[2024-07-03] MEDS: Memantine HCl 5 MG TABLET PO ×2 (10:18→20:52)
[2024-07-03] MEDS: Escitalopram Oxalate 20 MG TABLET PO (10:18)
[2024-07-03] MEDS: Metoprolol Tartrate 12.5 MG HALFTAB PO ×2 (10:18→20:52)
[2024-07-03] MEDS: 0.9 % Sodium Chloride Flush 3 ML SYRINGE IVFLUSH ×3 (10:19→20:52)
[2024-07-03] MEDS: Nystatin Powder 15 GM BOTTLE 1 APPL TOPICAL ×3 (10:19→20:52)
[2024-07-03] MEDS: Fluticasone Propionate Nasal 16 GM SPRAY 1 SPRAY NOSTRIL-B (10:19)
--- NOTE | 2024-07-03 10:54 | P.PNIM_ITS ---
Subjective Subjective Date of Service: 07/03/24 Interval History: f/u on wound infection staph epi bacteremia, repeat cultures pending no new issues, Physical Exam 2 Vital Signs: Vital Signs: Last Vital Signs Temp 98.8 F 07/03/24 07:04 Pulse 98 07/03/24 07:58 Resp 20 07/03/24 07:58 BP 111/61 07/03/24 07:04 Pulse Ox 93 07/03/24 07:04 O2 Del Method Room Air 07/03/24 07:04 BMI result Body Mass Index 31.1 Elderly female lying in bed in no distress Neck supple, no JVD Irregularly irregular, S1-S2 heard Regular breath sounds bilaterally, no wheezing or crackles appreciated Abdomen soft nontender, no guarding, no rigidity Patient is awake, alert and oriented x2 ; no focal motor deficit Intertrigo + under breast skin folds and abdominal folds Abrasion and skin breakdown over the sacral region with foul-smelling purulent drainage Psych: Normal mood Venous stasis changes over bilateral lower extremities Objective Data Active Medications Acetaminophen (Acetaminophen 325 Mg Tablet) 650 mg PO Q6H PRN PRN Reason: Pain, Mild 1-3,fever,headache Last Admin: 07/02/24 08:51 Dose: 650 mg Documented By: KATHRYN Atorvastatin Calcium (Atorvastatin Calcium 80 Mg Tablet) 20 mg PO BEDTIME [facility] Last Admin: 07/02/24 21:45 Dose: 20 mg Documented By: SANDRA Calcium Carbonate (Calcium Carbonate 750 Mg Tab.Chew) 750 mg PO Q4H PRN PRN Reason: Heartburn Last Admin: 06/30/24 19:35 Dose: 750 mg Documented By: VAUGHN Cyanocobalamin (Cyanocobalamin (Vitamin B-12) 100 Mcg Tablet) 50 mcg PO DAILY [facility] Last Admin: 07/03/24 10:18 Dose: 50 mcg Documented By: BRITNEY Digoxin (Digoxin 0.125 Mg Tablet) 0.125 mg PO MOWEFR [facility]; Protocol Last Admin: 07/03/24 10:18 Dose: 0.125 mg Documented By: BRITNEY Escitalopram Oxalate (Escitalopram Oxalate 20 Mg Tablet) 20 mg PO DAILY [facility] Last Admin: 07/03/24 10:18 Dose: 20 mg Documented By: BRITNEY Famotidine (Famotidine 20 Mg Tablet) 20 mg PO BEDTIME [facility] Last Admin: 07/02/24 21:46 Dose: 20 mg Documented By: SANDRA Fluticasone Propionate (Fluticasone Propionate Nasal 16 Gm [place]) 1 spray NOSTRIL-B DAILY [facility] Last Admin: 07/03/24 10:19 Dose: 1 spray Documented By: BRITNEY Fluticasone/Vilanterol (Fluticasone/Vilanterol 100/25 Blst.W.Dev) 1 puff INHALE RDAILY [facility] Last Admin: 07/03/24 07:56 Dose: 1 puff Documented By: SMITA Cefazolin Sodium/Dextrose (Ancef) 2 gm in 50 mls @ 100 mls/hr IV Q8H [facility] Last Infusion: 07/03/24 06:47 Dose: Infused Documented By: SANDRA Vancomycin HCl 1,000 mg/ (Sodium Chloride) 270 mls @ 270 mls/hr IV Q12H [facility] Last Admin: 07/03/24 09:52 Dose: 270 mls/hr Documented By: BRITNEY Magnesium Hydroxide (Milk Of Magnesia 30 Ml Oral.Susp) 30 ml PO DAILY PRN PRN Reason: Constipation Magnesium Oxide (Magnesium Oxide 400 Mg Tablet) 200 mg PO DAILY [facility] Last Admin: 07/03/24 10:17 Dose: 200 mg Documented By: BRITNEY Melatonin (Melatonin 3 Mg Tablet) 6 mg PO BEDTIME PRN PRN Reason: Insomnia Last Admin: 07/02/24 22:03 Dose: 6 mg Documented By: SANDRA Memantine (Memantine Hcl 5 Mg Tablet) 5 mg PO BID [facility] Last Admin: 07/03/24 10:18 Dose: 5 mg Documented By: BRITNEY Metoprolol Tartrate (Metoprolol Tartrate 12.5 Mg Halftab) 12.5 mg PO BID [facility]; Protocol Last Admin: 07/03/24 10:18 Dose: 12.5 mg Documented By: BRITNEY Morphine Sulfate (Morphine Sulfate 2 Mg/Ml Cartridge) 2 mg IVPUSH Q4H PRN; Protocol PRN Reason: Pain, Severe (Pain Scale 7-10) Last Admin: 07/02/24 21:47 Dose: 2 mg Documented By: SANDRA Multivitamins/Vitamin C (Multivitamin Tablet) 1 tab PO DAILY [facility] Last Admin: 07/03/24 10:17 Dose: 1 tab Documented By: BRITNEY Nystatin (Nystatin Powder 15 Gm Bottle) 1 appl TOPICAL TID [facility]; Protocol Last Admin: 07/03/24 10:19 Dose: 1 appl Documented By: BRITNEY Omeprazole (Omeprazole 40 Mg Capsule.) 40 mg PO DAILY@0630 [facility] Last Admin: 07/03/24 05:50 Dose: 40 mg Documented By: SANDRA Ondansetron HCl (Ondansetron Hcl 4 Mg/2 Ml Vial) 4 mg IVPUSH Q8H PRN PRN Reason: Nausea and Vomiting Pharmacy Consult (Consult Rx Vancomycin Dosing) 1 each MISCELLANE DAILY PRN PRN Reason: Consult order Rivaroxaban (Rivaroxaban 20 Mg Tablet) 20 mg PO DAILY@1700 [facility] Last Admin: 07/02/24 15:38 Dose: 20 mg Documented By: KATHRYN Sodium Chloride (0.9 % Sodium Chloride Flush 3 Ml Syringe) 3 ml IVFLUSH QSHIFT [facility] Last Admin: 07/03/24 10:19 Dose: 3 ml Documented By: BRITNEY Labs 07/03/24 06:53 07/03/24 06:53 Labs: Laboratory Results - last 24 hr 07/03/24 06:53 MCV 93.2 MCH 29.8 MCHC 32.0 RDW Not Reportable Plt Count 188 D MPV 11.5 Absolute Nucleated RBC 0.000 Nucleated RBC % (auto) 0.0 Anion Gap 11 L Estim Creat Clear Calc 83.3 Estimated GFR > 60 Random Glucose 101 Calcium 8.3 L D Vancomycin Trough 19.2 Microbiology Microbiology Results: Microbiology 07/01/24 11:03 Blood Culture - Preliminary Blood - Venous No growth after 24 hours. 07/01/24 10:53 Blood Culture - Preliminary Blood - Venous No growth after 24 hours. Assessment and Plan (1) Atrial fibrillation with rapid ventricular response: Status: Acute (2) Sepsis: Status: Acute (3) Bacteremia: Status: Acute Plan This is a 83-year-old female with pertinent history of moderate persistent asthma not on home oxygen, lower extremity lymphedema with venous stasis changes, paroxysmal atrial fibrillation on Xarelto, history of PE due to noncompliance with anticoagulation, history of TIA, mood disorder, gastroesophageal reflux disease, mixed hyperlipidemia, mild cognitive disorder who was brought to the emergency department for evaluation after being found on the ground at home. Severe sepsis due to infected sacral decubitus injury + intertrigo with secondary bacterial infection and now Staph epi bacteremia she is on vaco and zosyn, changed to vanco and kefzol 06/30, ID recommends possible vanco, if staph turns out to be pathogenic. repeat cultures from 07/01 pending echocardiogram: no vegetations repeat cultures pending, if negative, staph epi likely contamination and will discuss with ID further AFib with RVR d/t not taking her meds x 4 days, now rate controlled continue dig and metoprolol, xarelto Acute lactic acidosis due to sepsis Elevated troponin Type 2 in the setting of sepsis and AFib with RVR Mood disorder: Continue home mood stabilizers Cognitive disorder: On memantine. Maintain sleep-wake cycle Gastroesophageal reflux disease: On PPI Mixed hyperlipidemia: On statin Moderate persistent asthma: No exacerbation during admission. Continue home inhaler PT evaltoday DVT prophylaxis: Xarelto Full code need for inpt: bacteremia on iv Abx Quality Stroke Does the patient have a stroke diagnosis?: No VTE Prior VTE?: No VTE Risk Level:: Medical - moderate - high VTE Device Contraindication: Treatment Not Indicated VTE Drug Contraindication: N/A - Med Ordered
--- NOTE | 2024-07-03 12:24 | MHC.CLN ---
F/U PT WITH INCREASED NUTRITION RISK R/T PRESSURE INJURY. SKIN WITH INFECTION TO SACRAL DECUBITUS INJURY. DIET=CARDIAC. PO INTAKE 75-100%. ENSURE BID TO PROMOTE WOUND HEALING. SUPPLEMENT PROVIDES 700KCALS, 40G PROTEIN. MONITOR PO INTAKE, SKIN INTEGRITY AND ENCOURAGE SUPPLEMENTS.
--- NOTE | 2024-07-03 12:51 | HO.WOUND ---
Wound Consult: Initial 83yr old? [place] [facility] [place] See progress notes and H&P for detailed history.? Wound consult placed for Buttock and perineal area.? Several attempts made to assess patients skin however she has been unavailable - will continue to try to assess patients skin in person however chart review reveals photos and details on admission. Todays direct care nurse also able to provide photo of the buttock area. Of importance the patient was found down at her home for approximately 5 days. Chart review reveals fungal dermatitis to breast and skin folds Nystatin ordered in APR - recommend cleansing and continue use of Nystatin powder. Heels were not assessed will attempt follow up for heels at future date and or time. Buttock and Perineal and Bilateral Inner Thighs Etiology: ??MASD (Moisture Associated Skin Damage) Present on Admission Wound Bed: scattered open areas in various wound bed presentations - improving per chart review and photo review. Recommend continued treatment with Triad to allow for autolytic debridement and moist wound bed healing. Buttock on Admission Inner Thigh on admission Buttock today 07/03/24 Recommendations: 1. Turn and Reposition every 2 hours and as needed for patient comfort.? Use pillows or wedges to support off loading positions. 2. Off Load all bony prominences with use of pillows and heel boots if needed.? Apply Preventative foams where needed. ? 3. Monitor for incontinence and moisture control, use barrier creams when needed for prevention and treatment. 4. Provide adequate and supplemental nutrition.? 5. Order low air loss mattress. 6. When applicable maintain blood glucose levels per Providers order. Buttock, Perineal and Bilateral Inner Thighs -Off Load Pressure with Q2 hr turns and use of pillows - Cleanse with PH balance spray or wipes, pat dry. ?Apply thin layer of Triad cream to affected area.? Apply twice daily and Reapply thin layer PRN after each episode of incontinence. Waffle cushion when up to chair. Skin Folds - Cleanse with PH balance wipes, pat dry with soft cloth.? Apply antifungal power to assist with moisture management.? Be sure to dust of excess powder to prevent caking on skin and in folds. Apply per provider orders. Tuck Interdry AG Sheet into skin fold to wick and translocate moisture away from skin fold.? Be sure to leave at least 2 inch of fabric exposed outside of skin fold.? Change after 5 days or when soiled. Re-consult wound care Nurse for wound deterioration or wound changes.
--- NOTE | 2024-07-03 13:20 | MHC.CM.PN ---
Addendum entered by Candida Mims 07/03/24 13:35: [facility] protective services egg caser: Analilia [phone] x. [phone] Original Note: CM met with CM from [facility] services at her request today. She is here to follow up on a referral about pt.'s home, client care consultant found to be a hoarding situation when they arrived to assist pt. [employer] ANALYST. CM explained that the pt. is not ready to DC, and when she is, she will likely go to [facility], and that pt. is aware that the house needs to be cleaned out and is willing to hire a company to do this, 2 names of local cleaning companies were given to pt.
--- NOTE | 2024-07-03 14:15 | P.PNID_ITS ---
Subjective Subjective Date of Service: 07/03/24 Critical Care Time (minutes): 15 Comment: she feels well Objective Data Labs 07/03/24 06:53 07/03/24 06:53 Labs: Laboratory Results - last 24 hr 07/03/24 06:53 WBC 7.9 RBC 3.82 L Hgb 11.4 L Hct 35.6 L MCV 93.2 MCH 29.8 MCHC 32.0 RDW Not Reportable Plt Count 188 D MPV 11.5 Absolute Nucleated RBC 0.000 Nucleated RBC % (auto) 0.0 Sodium 139 Potassium 3.8 Chloride 105 Carbon Dioxide 27 Anion Gap 11 L BUN 14 Creatinine 0.60 Estim Creat Clear Calc 83.3 Estimated GFR > 60 Random Glucose 101 Calcium 8.3 L D Vancomycin Trough 19.2 Microbiology Microbiology Results: Microbiology 07/01/24 11:03 Blood - Venous Blood Culture - Preliminary No growth after 48 hours. 07/01/24 10:53 Blood - Venous Blood Culture - Preliminary No growth after 48 hours. 06/28/24 22:17 Blood - Venous Blood Culture - Final Staphylococcus epidermidis 06/28/24 22:16 Blood - Venous Blood Culture - Final Staphylococcus epidermidis 06/28/24 Unknown Urine clean catch - Clean Catch Midstream Urine Culture - Final Physical Exam 2 Vital Signs: Vital Signs: Last Vital Signs Temp 98.8 F 07/03/24 07:04 Pulse 98 07/03/24 11:38 Resp 20 07/03/24 07:58 BP 111/61 07/03/24 07:04 Pulse Ox 93 07/03/24 07:04 O2 Del Method Room Air 07/03/24 07:04 BMI result Body Mass Index 31.1 Const: General: cooperative HEENT: Head: Yes normal to inspection Mouth: Normal oral and palatal mucosa present Resp: Effort & Inspection: normal respiratory effort Cardio: Rate: regular rate Rhythm: regular rhythm GI: Palpation (GI): Soft to palpation and nontender Extrem: Other: chronic venous stasis changes Assessment and Plan Assessment and plan (1) Bacteremia: Problem details: no real reason for staph epi bacteremia so likely contaminant with no source so no antibiotics Status: Acute Time Spent With Patient Time: Total time managing care of this patient today ____ minutes.
[2024-07-03] MEDS: Acetaminophen 325 MG TABLET 650 MG PO ×2 (15:07→21:28)
--- NOTE | 2024-07-03 16:47 | HO.WOUND ---
Wound Consult: Initial 83yr old? [place] [facility] See progress notes and H&P for detailed history.? Wound consult placed for Buttock and perineal area.? Several attempts made to assess patients skin however she has been unavailable - will continue to try to assess patients skin in person however chart review reveals photos and details on admission. Todays direct care nurse also able to provide photo of the buttock area. Of importance the patient was found down at her home for approximately 5 days. Chart review reveals fungal dermatitis to breast and skin folds Nystatin ordered in APR - recommend cleansing and continue use of Nystatin powder. Heels were not assessed will attempt follow up for heels at future date and or time. Buttock and Perineal and Bilateral Inner Thighs Etiology: ??MASD (Moisture Associated Skin Damage) Present on Admission Wound Bed: scattered open areas in various wound bed presentations - improving per chart review and photo review. Recommend continued treatment with Triad to allow for autolytic debridement and moist wound bed healing. Buttock on Admission Inner Thigh on admission Buttock today 07/03/24 Right Thigh improving. Right Plantar Foot - DTI - unclear etiology patient deso not recall if her foot was up against sometime for the time she was down. Tissue is intact and remains nonblanchable - recommend off load pressure - no topical interventions needed at this time. Bilateral Heels and elbows assessed - pink intact tissue - remains blanchable - no PI noted at this time. Bilateral lower legs noted for thickened scaling tissue - patient reports baseline lymphedema - reports she treats at outpt wound clinic at [facility]. She report she uses a cream she is unsure of the name of and she sees a OT therapist who provides manual therapy to both legs. No topical treatments needed at this time. Recommendations: 1. Turn and Reposition every 2 hours and as needed for patient comfort.? Use pillows or wedges to support off loading positions. 2. Off Load all bony prominences with use of pillows and heel boots if needed.? Apply Preventative foams where needed. ? 3. Monitor for incontinence and moisture control, use barrier creams when needed for prevention and treatment. 4. Provide adequate and supplemental nutrition.? 5. Order low air loss mattress. 6. When applicable maintain blood glucose levels per Providers order. Buttock, Perineal and Bilateral Inner Thighs -Off Load Pressure with Q2 hr turns and use of pillows - Cleanse with PH balance spray or wipes, pat dry. ?Apply thin layer of Triad cream to affected area.? Apply twice daily and Reapply thin layer PRN after each episode of incontinence. Waffle cushion when up to chair. Skin Folds - Cleanse with PH balance wipes, pat dry with soft cloth.? Apply antifungal power to assist with moisture management.? Be sure to dust of excess powder to prevent caking on skin and in folds. Apply per provider orders. Tuck Interdry AG Sheet into skin fold to wick and translocate moisture away from skin fold.? Be sure to leave at least 2 inch of fabric exposed outside of skin fold.? Change after 5 days or when soiled. Re-consult wound care Nurse for wound deterioration or wound changes.
[2024-07-03] MEDS: Rivaroxaban 20 MG TABLET PO (16:53)
[2024-07-03] MEDS: Famotidine 20 MG TABLET PO (20:52)
[2024-07-03] MEDS: Atorvastatin Calcium 80 MG TABLET PO (20:52)
[2024-07-03] MEDS: Melatonin 3 MG TABLET 6 MG PO (21:28)
[2024-07-04 03:19] VITALS: BP 130/74; PULSE 83; RESP 16; TEMP 36.2; O2SAT 94
[2024-07-04] MEDS: Omeprazole 40 MG CAPSULE.DR PO (05:42)
[2024-07-04] MEDS: ceFAZolin Sodium/Dextrose,Iso 2 GM/50 ML PIGGYBACK IV (05:43)
[2024-07-04 07:14] VITALS: BP 157/91; PULSE 87; RESP 16; TEMP 37.3
[2024-07-04 07:20] VITALS: BP 169/75; PULSE 60; RESP 12; TEMP 37.1; O2SAT 94
[2024-07-04 07:36] LABS: Anion Gap 12 (12-20); Blood Urea Nitrogen 12 mg/dL (9-16); Calcium 8.7 mg/dL (8.4-10.2); Carbon Dioxide 30 mmol/L (22-29); Chloride 104 mmol/L (96-108); Creatinine Clr Calc Pharmacy 83.3; Estimated Glomerular Filt Rate > 60; Glucose Random 106 mg/dL (60-115); Potassium 4.3 mmol/L (3.3-5.1); Sodium 142 mmol/L (135-145); Vancomycin Random 15.6 mcg/mL (15-20)
--- NOTE | 2024-07-04 07:52 | HE.PHANOTE ---
VANCO DOSE ADJUSTMENT BASED ON SCR AND TROUGH OF 15.6 DOSE CONTINUED AT 1000 Q 12H. NEXT LEVEL 07/06 @ 0700
[2024-07-04] MEDS: Multivitamin TABLET 1 TAB PO (08:46)
[2024-07-04] MEDS: Metoprolol Tartrate 12.5 MG HALFTAB PO (08:46)
[2024-07-04] MEDS: Memantine HCl 5 MG TABLET PO (08:46)
[2024-07-04] MEDS: Escitalopram Oxalate 20 MG TABLET PO (08:46)
[2024-07-04] MEDS: Cyanocobalamin (Vitamin B-12) 100 MCG TABLET 50 MCG PO (08:47)
[2024-07-04] MEDS: Magnesium Oxide 400 MG TABLET 200 MG PO (08:50)
[2024-07-04] MEDS: 0.9 % Sodium Chloride Flush 3 ML SYRINGE IVFLUSH (08:50)
[2024-07-04] MEDS: Fluticasone Propionate Nasal 16 GM SPRAY 1 SPRAY NOSTRIL-B (08:50)
[2024-07-04] MEDS: Nystatin Powder 15 GM BOTTLE 1 APPL TOPICAL (08:51)
[2024-07-04 10:36] VITALS: BP 169/75; PULSE 60; O2SAT 94
--- NOTE | 2024-07-04 12:12 | P.DS_ITS ---
DS: Providers Provider Date of Service: 07/04/24 Date of admission: 06/29/24 00:19 Date of discharge: 07/04/24 Primary care physician: Kallie Guerrero MD Consults: 06/29/24 07:31 Consult to Wound Care Routine Reason for consultation: sacral ulcers 06/30/24 12:29 Consult to Infectious Diseases Routine Consulting Provider: [facility] Reason for consultation: staph aureus bacteremia Has provider been notified: No Attending physician on discharge: Monica Serrano Discharging clinician: Monica Serrano DS: Diagnosis Discharge Diagnosis (1) Bacteremia: Status: Acute DS: Summary Hospital Course Hospital Course: HPI:83-year-old female with pertinent history of moderate persistent asthma not on home oxygen, lower extremity lymphedema with venous stasis changes, paroxysmal atrial fibrillation on Xarelto, history of PE due to noncompliance with anticoagulation, history of TIA, mood disorder, gastroesophageal reflux disease, mixed hyperlipidemia, mild cognitive disorder who was brought to the emergency department for evaluation after being found on the ground at home. Patient states she fell in her home about 5 days prior to presentation. Does not remember how she fell but thinks she might have tripped on something. Does not think that she lost consciousness before she fell. Patient states she was lying on the floor for about 4-5 days and is complaining of diffuse body pains as a result of it. Patient states she has not eaten anything and was urinating and defecating in the same place for the last 4 days. Patient did not have her phone and hence could not call anybody. Patient was found on the day of presentation by friends at home onto a pile of clothes and EMS was called. Patient denied hitting her head or chest pain, dizziness, lightheadedness or palpitations before the fall. Patient was covered in stool and urine as per EMS. Patient has not taken her home prescription medications for the last 4-5 days. In the emergency department, patient was found to be septic with temp 101.4, leukocytosis 18.4. Also found to be in AFib with RVR. Hospital course: 83-year-old female with pertinent history of moderate persistent asthma not on home oxygen, lower extremity lymphedema with venous stasis changes, paroxysmal atrial fibrillation on Xarelto, history of PE due to noncompliance with anticoagulation, history of TIA, mood disorder, gastroesophageal reflux disease, mixed hyperlipidemia, mild cognitive disorder who was brought to the emergency department for evaluation after being found on the ground at home: Patient was initially admitted for severe sepsis which was thought to be possible infection of MASD (areas)/intertrigo: Started on IV antibiotics, lactic acid and blood cultures sent: Patient found to have acute lactic acidosis also,intial blood cultures grew - staph epidermidis ,ct abd:No open wounds seen in the sacral or ischial regions. There is some skin thickening and underlying subcutaneous stranding. No evidence of abscess. echo :The left ventricular systolic function is normal. The visually estimated ejection fraction is between 55-60%. No obvious valvular pathology seen on this study. repeat blood cultures negative 48 hrs,lactic acidosis, hyponatremia resolved with ivf . patient seen by ID: Staph epidermidis - likely contaminant with no source,so no antibiotics recomeded. patient is off antibiotics, no fevers currently .sepsis criteria also resolved . no further need for antibiotics. afib rvr : not taking her meds x 4 days,given IV Lopressor and IV diltiazem push in the ER, now rate controlled. elevated troponins thought to be related to afib with rvr ,echo:The left ventric ular systolic function is normal. The visually estimated ejection fraction is between 55-60%.No obvious valvular pathology seen on this study. continue dig and metoprolol, xarelto.advised to be complaint with her medications. wound care instructions : Buttock and Perineal and Bilateral Inner Thighs (MASD): Turn and Reposition every 2 hours and as needed for patient comfort.? Use pillows or wedges to support off loading positions. Off Load all bony prominences with use of pillows and heel boots if needed.? Apply Preventative foams where needed. ? Monitor for incontinence and moisture control, use barrier creams when needed for prevention and treatment. Provide adequate and supplemental nutrition.? When applicable maintain blood glucose levels. Buttock, Perineal and Bilateral Inner Thighs -Off Load Pressure with Q2 hr turns and use of pillows - Cleanse with PH balance spray or wipes, pat dry. ?Apply thin layer of Triad cream to affected area.? Apply twice daily and Reapply thin layer PRN after each episode of incontinence. Waffle cushion when up to chair. Skin Folds - Cleanse with PH balance wipes, pat dry with soft cloth.? Apply antifungal power to assist with moisture management.? Be sure to dust of excess powder to prevent caking on skin and in folds. Apply per provider orders. Tuck Interdry AG Sheet into skin fold to wick and translocate moisture away from skin fold.? Be sure to leave at least 2 inch of fabric exposed outside of skin fold.? Change after 5 days or when soiled. Right Plantar Foot - DTI - unclear etiology patient deso not recall if her foot was up against sometime for the time she was down. Tissue is intact and remains nonblanchable - recommend off load pressure - no topical interventions needed at this time. Bilateral Heels and elbows assessed - pink intact tissue - remains blanchable - no PI noted at this time. Bilateral lower legs noted for thickened scaling tissue - patient reports baseline lymphedema - reports she treats at outpt wound clinic at [facility]. She report she uses a cream she is unsure of the name of and she sees a OT therapist who provides manual therapy to both legs. No topical treatments needed at this time. checked with staff:Romero was fluid management ,skin integrity: Consider voiding trial in next 24 hours, monitor for urinary retention with PVRs: If needed consider outpatient urology evaluation. Above management discussed with the patient detail length she understand and in agreement with the above plan, time spent 40 minute, staff was present during the conversation.all questions answered. Time Attestation Total time managing care of this patient today: 40 mintues. Discharge Coordination Time (in mins): 40 min Quality: Safe Use of Opioids Does Pt have an Active Cancer Diagnosis on the Problem List?: No Quality: Stroke Does the patient have a stroke diagnosis?: No Physical Exam Vital Signs: Vital Signs: Last Vital Signs Temp 98.7 F 07/04/24 07:20 Pulse 60 07/04/24 10:36 Resp 12 07/04/24 07:20 BP 169/75 H 07/04/24 10:36 Pulse Ox 94 07/04/24 10:36 O2 Del Method Room Air, Oxymask 07/04/24 07:20 BMI result Body Mass Index 31.1 Appearance: Alert.? Oriented X3.? cvs: rrr, [id number]. res: clear to auscultation ,no rhonchii or wheezing abd: no rebound or guarding ,nt, bs present. ext pulses present , no cyanosis . skin:Abrasion and skin breakdown over the sacral region some under breast skin folds and abdominal folds( please see wound care instruction section) neuro: axo3 , nonfocal. DS: Data Data Completed and Pending Completed studies during hospitalization [Text1]: Procedures Control Bleeding in Gastrointestinal Tract, Via Natural or Artificial Opening Endoscopic (09/08/21) Introduction of Other Therapeutic Substance into Upper GI, Via Natural or Artificial Opening Endoscopic (09/08/21) Transfusion of Nonautologous Frozen Plasma into Peripheral Vein, Percutaneous Approach (09/08/21) Transfusion of Nonautologous Red Blood Cells into Peripheral Vein, Percutaneous Approach (09/08/21) Labs on day of discharge: Laboratory Results - last 24 hr 07/04/24 07:06 Hold Purple Top SEE NOTE Sodium 142 Potassium 4.3 Chloride 104 Carbon Dioxide 30 H Anion Gap 12 BUN 12 Creatinine 0.60 Estim Creat Clear Calc 83.3 Estimated GFR > 60 Random Glucose 106 Calcium 8.7 Random Vancomycin 15.6 Preliminary micro results at discharge 07/01/24 11:03 Blood Culture - Preliminary Blood - Venous No growth after 48 hours. 07/01/24 10:53 Blood Culture - Preliminary Blood - Venous No growth after [address] scan - abdomen: My impression: ct abd:No open wounds seen in the sacral or ischial regions. There is some skin thickening and underlying subcutaneous stranding. No evidence of abscess. Head CT: 1. No acute intracranial findings. Discharge Plan Discharge Anticipated Discharge Date/Time: 07/04/24 11:27 Patient Disposition: Xfer SNF Discharge Diagnosis: afib with rvr , hypernatremia Referrals: [facility] [Outside] - 1 Day (short term rehab) Kallie Guerrero MD [Primary Care Provider] - 1 Week Discharge Medications: New metoprolol tartrate 25 mg tablet 12.5 mg PO BID Qty: 1 0RF nystatin [Nyamyc] 100,000 unit/gram Powder 1 appl topical TID Qty: 1 0RF Protocol: Apply to: Apply to: skin folds Continued digoxin 125 mcg (0.125 mg) tablet 125 mcg PO MOWEFR 90 Days Qty: 39 3RF (DME) Bilateral Velcro based compression garments-compression class 20-30 Knee high See Rx Instructions .Route .MEDSUPPLY Qty: 1 0RF Rx Instructions: As directed fluticasone propion-salmeterol [Advair HFA] 115-21 mcg/actuation HFA aerosol inhaler 2 puff inhalation Q12H Qty: 12 3RF fluticasone propionate 50 mcg/actuation spray,suspension 1 spray intranasal DAILY 30 Days Qty: 16 2RF multivitamin Tablet 1 tab PO DAILY Vitamin B-12 50 mcg Tablet 50 mcg PO DAILY magnesium 200 mg Tablet 200 mg PO DAILY Probiotic 3 billion cell Capsule 3,000 mmu cells PO DAILY Rx Instructions: administer with a meal citalopram 40 mg tablet 40 mg PO DAILY omeprazole 40 mg capsule,delayed release(DR/EC) 40 mg PO DAILY@0630 rosuvastatin 20 mg tablet 20 mg PO BEDTIME rivaroxaban 20 mg tablet 20 mg PO DAILY@1700 Rx Instructions: must administer with evening meal. 20 mg daily dose to begin after patient co mpletes 15 mg BID dosing on 08/03/23 memantine 5 mg Tablet 5 mg PO BID famotidine 20 mg Tablet 20 mg PO BEDTIME Qty: 30 3RF Discharge Orders: Discharge Order (Routine); Ordered 07/04/24 Ordered By: Monica Serrano Diet: Advance to usual diet Activity on Discharge: As tolerated Stand Alone Forms: Patient Portal Discharge page Print Language: Bahamian Activity Restrictions/Additional Instructions: Buttock and Perineal and Bilateral Inner Thighs (MASD): Turn and Reposition every 2 hours and as needed for patient comfort.? Use pillows or wedges to support off loading positions. Off Load all bony prominences with use of pillows and heel boots if needed.? Apply Preventative foams where needed. ? Monitor for incontinence and moisture control, use barrier creams when needed for prevention and treatment. Provide adequate and supplemental nutrition.? When applicable maintain blood glucose levels. Buttock, Perineal and Bilateral Inner Thighs -Off Load Pressure with Q2 hr turns and use of pillows - Cleanse with PH balance spray or wipes, pat dry. ?Apply thin layer of Triad cream to affected area.? Apply twice daily and Reapply thin layer PRN after each episode of incontinence. Waffle cushion when up to chair. Skin Folds - Cleanse with PH balance wipes, pat dry with soft cloth.? Apply antifungal power to assist with moisture management.? Be sure to dust of excess powder to prevent caking on skin and in folds. Apply per provider orders. Tuck Interdry AG Sheet into skin fold to wick and translocate moisture away from skin fold.? Be sure to leave at least 2 inch of fabric exposed outside of skin fold.? Change after 5 days or when soiled. Right Plantar Foot - DTI - unclear etiology patient deso not recall if her foot was up against sometime for the time she was down. Tissue is intact and remains nonblanchable - recommend off load pressure - no topical interventions needed at this time. Bilateral Heels and elbows assessed - pink intact tissue - remains blanchable - no PI noted at this time. Bilateral lower legs noted for thickened scaling tissue - patient reports baseline lymphedema - reports she treats at outpt wound clinic at [facility]. She report she uses a cream she is unsure of the name of and she sees a OT therapist who provides manual therapy to both legs. No topical treatments needed at this time. Care Plan Goals: 83-year-old female with pertinent history of moderate persistent asthma not on home oxygen, lower extremity lymphedema with venous stasis changes, paroxysmal atrial fibrillation on Xarelto, history of PE due to noncompliance with anticoagulation, history of TIA, mood disorder, gastroesophageal reflux disease, mixed hyperlipidemia, mild cognitive disorder who was brought to the emergency department for evaluation after being found on the ground at home: Patient was initially admitted for severe sepsis which was thought to be possible infection of MASD (areas)/intertrigo: Started on IV antibiotics, lactic acid and blood cultures sent: Patient found to have acute lactic acidosis also,intial blood cultures grew - staph epidermidis ,ct abd:No open wounds seen in the sacral or ischial regions. There is some skin thickening and underlying subcutaneous stranding. No evidence of abscess. echo :The left ventricular systolic function is normal. The visually estimated ejection fraction is between 55-60%. No obvious valvular pathology seen on this study. repeat blood cultures negative 48 hrs,lactic acidosis, hyponatremia resolved with ivf . patient seen by ID: Staph epidermidis - likely contaminant with no source,so no antibiotics recomeded. patient is off antibiotics, no fevers currently .sepsis criteria also resolved . no further need for antibiotics. d/w wound care also her skin changes seems improving signifiacntly. afib rvr : not taking her meds x 4 days,given IV Lopressor and IV diltiazem push in the ER, now rate controlled. elevated troponins thought to be related to afib with rvr ,echo:The left ventricular systolic function is normal. The visually estimated ejection fraction is between 55-60%.No obvious valvular pathology seen on this study. continue dig and metoprolol, xarelto.advised to be complaint with her medications. wound care instructions as above. Health Concerns: as above. if any new symptoms or fevers -patient need to go to ED for further evaluation. Plan of Treatment: as above. Assessment: as above.
--- NOTE | 2024-07-04 12:49 | MHC.CM.PN ---
Addendum entered by Allie Goodman RN 07/04/24 14:11: Taylor, patient's friend, visiting patient and stopped this CM in the hallway, again requesting information and expressing concern re: patient's home. Patient maintains that she does not want information released to Taylor. CM redirected Taylor back to patient. Patient remains amenable to dc plan and will follow up with resources provided. Case reviewed w/ CM director. Original Note: Per MD patient medically cleared for dc to [facility]. Patient accepted bed at [facility]. Patient discussed home situation w/ this CM. Patient reports she has struggled w/ hoarding since the of her 8 years ago. She has met w/ counselors and is considering seeking out another counselor, but is very focused on getting the home cleaned while she is in STR. Previous CM provided names of local cleaning agencies. This CM also provided contact information for an independent condenser cleaner who has done other deep cleans ([employer] [phone]). Patient understands this can be very costly (potentially thousands) and reports she has the funds to pay for it. She will start making arrangements tomorrow and reports her friend, Taylor, can assist with letting people in the home while pt is in STR. Patient understands that EMS has reported this to the [facility] and there is a sense of urgency to get the home clean. She has not heard from the [facility] at this time. Patient is a&o x4, answering all questions appropriately. She also understands that SS will follow up with her on dc from STR. Taylor, patient's friend, also called this CM w/ concerns re: home. Patient does not give permission for CM to speak w/ Taylor, directed back to patient. BLS transport scheduled for 2:30pm. IMM delivered.
[2024-07-04 14:09] VITALS: BP 128/69; PULSE 99; RESP 18; TEMP 36.8; O2SAT 97
== END 2024-07-04 14:55 | disposition skilled nursing facility (03) | DRG 872 ==
LOC: HO.ED 06-29 00:59 → HO.EDOVER 06-29 01:35 → HO.IMC 06-29 16:48 → HO.S3 07-03 11:15
PROVIDERS: Internal Medicine; Admitting Provider Student in an Organized Health Care Education/Training Program; Emergency Provider Emergency Medicine; PCP Internal Medicine; Visit Provider Internal Medicine
DX: A41.9 Sepsis, unspecified organism (principal); E86.0 Dehydration; J45.40 Moderate persistent asthma, uncomplicated; I89.0 Lymphedema, not elsewhere classified; L24.A9 Irritant contact dermatitis due friction or contact with other specified body fluids; F39 Unspecified mood [affective] disorder; G31.84 Mild cognitive impairment of uncertain or unknown etiology; I87.8 Other specified disorders of veins; L89.156 Pressure-induced deep tissue damage of sacral region; L89.896 Pressure-induced deep tissue damage of other site; R65.20 Severe sepsis without septic shock; L30.4 Erythema intertrigo; E78.2 Mixed hyperlipidemia; Z20.822 Contact with and (suspected) exposure to COVID-19; Z91.138 Patient's unintentional underdosing of medication regimen for other reason; Z79.01 Long term (current) use of anticoagulants; Z79.51 Long term (current) use of inhaled steroids; Z79.899 Other long term (current) drug therapy
CPT/HCPCS: 0241U; 36415; 70450; 71045; 74176; 80048; 80053; 80202; 81001; 82550; 82565; 83605; 83880; 84484; 85025; 85027; 85610; 86140; 87040; 87077; 87086; 87186; 87205; 93005; 93306; 94640; 97162; 97530; 99285; J0131; J0690; J0696; J2270; J2543; J3370; J3371; J7120; Q9957

== ENCOUNTER → 2024-06-28 20:48 | Outpatient (BNV) | payer MEDICARE, SELFPAY | PROVIDERS: Admitting Provider Student in an Organized Health Care Education/Training Program; Emergency Provider Emergency Medicine; Visit Provider Internal Medicine | DX: R94.31 Abnormal electrocardiogram [ECG] [EKG] (principal); R00.0 Tachycardia, unspecified | CPT/HCPCS: 93010 ==

== ENCOUNTER → 2024-06-28 21:48 | Outpatient (BNV) | payer MEDICARE, SELFPAY | PROVIDERS: Emergency Provider Emergency Medicine; Visit Provider Radiology Diagnostic Radiology | DX: R41.0 Disorientation, unspecified (principal); W19.XXXA Unspecified fall, initial encounter; I48.91 Unspecified atrial fibrillation; R53.1 Weakness | CPT/HCPCS: 70450; 71045 ==

== ENCOUNTER 2024-06-29 00:19 | Outpatient (BNV) | payer MEDICARE, SELFPAY | END 2024-06-30 12:30 | PROVIDERS: Admitting Provider Student in an Organized Health Care Education/Training Program; Emergency Provider Emergency Medicine; Visit Provider Internal Medicine | DX: I34.0 Nonrheumatic mitral (valve) insufficiency (principal); I37.1 Nonrheumatic pulmonary valve insufficiency; I36.1 Nonrheumatic tricuspid (valve) insufficiency | CPT/HCPCS: 93306 ==

== ENCOUNTER → 2024-06-29 00:19 | Outpatient (BNV) | payer MEDICARE, SELFPAY | PROVIDERS: Admitting Provider Student in an Organized Health Care Education/Training Program; Emergency Provider Emergency Medicine; PCP Internal Medicine; Visit Provider Internal Medicine | DX: R78.81 Bacteremia (principal) | CPT/HCPCS: 99222; 99232 ==

== ENCOUNTER → 2024-06-29 00:19 | Outpatient (BNV) | payer MEDICARE, SELFPAY | PROVIDERS: Admitting Provider Student in an Organized Health Care Education/Training Program; Emergency Provider Emergency Medicine; Visit Provider Student in an Organized Health Care Education/Training Program | DX: I48.91 Unspecified atrial fibrillation (principal); A41.9 Sepsis, unspecified organism; R78.81 Bacteremia | CPT/HCPCS: 99223; 99232; 99233 ==

== ENCOUNTER → 2024-06-29 | Outpatient (BNV) | payer MEDICARE, SELFPAY | PROVIDERS: Admitting Provider Student in an Organized Health Care Education/Training Program; Emergency Provider Emergency Medicine; Visit Provider Radiology Diagnostic Radiology | DX: A41.9 Sepsis, unspecified organism (principal) | CPT/HCPCS: 74176 ==

== ENCOUNTER 2024-08-16 12:58 | Outpatient (AMB) | payer MEDICARE, SELFPAY ==
--- NOTE | 2024-08-16 13:01 | A.OFFPC_ITS ---
Vital Signs 08/16/24 13:06 Height 5 ft 7 in Weight 200 lb BMI 31.3 BP 124/74 Blood Pressure Location Lt brachial Position Sitting Respiration 20 Pulse 93 Pulse Source Pulse Oximeter Temp 98.3 F Temp Source Oral Pulse Oximetry (%) 96 Intake Visit Reasons: had a fall Allergies pantoprazole Allergy (Intermediate, Verified 08/16/24 13:08) NAUSEA doxycycline Allergy (Mild, Verified 08/16/24 13:08) Rash lorazepam Allergy (Unknown, Verified 08/16/24 13:08) unknown amoxicillin (AMOXICILLIN) Adverse Reaction (Intermediate, Verified 08/16/24 13:08) NAUSEA/VOMITING Medication List - Last Reconciled 08/16/24 by Kallie Guerrero MD [Bilateral Velcro based compression garments-compression class 20-30 As directed ] citalopram 20 mg PO DAILY cyanocobalamin (vitamin B-12) (Vitamin B-12) 50 mcg PO DAILY digoxin 125 mcg PO MOWEFR 90 days fluticasone propion-salmeterol 115-21 mcg/actuation (Advair HFA) 2 puffs inhalation Q12H fluticasone propionate 50 mcg/actuation 1 spray intranasal DAILY 30 days furosemide 20 mg PO QAM lactobacillus combination no.4 (Probiotic) 3,000 mmu cells PO DAILY magnesium 200 mg PO DAILY memantine 5 mg PO BID metoprolol tartrate 12.5 mg (1/2 x 25 mg) PO BID multivitamin 1 tab PO DAILY nystatin (Nyamyc) 1 appl See Protocol topical TID omeprazole 40 mg PO DAILY@0630 rivaroxaban 20 mg PO DAILY@1700 rosuvastatin 20 mg PO BEDTIME Tobacco use date assessed: 08/16/24 Fall risk assessment: 1 Fall in past year Last assessed Fall Risk: 08/16/24 Dental Screening Dental Screen Date: 08/16/24 Did you have a dental visit in the last 12 months?: Yes Did you have a dental problem in the last 6 months where you did not have access to dental care?: No Was dental information given to patient?: Patient has dentist HPI had a fall HPI Details History - The patient is an 83-year-old female p resenting for follow-up after hospitalization for severe sepsis and ongoing management of chronic conditions. This is a long-term care - The patient experienced a fall at home , resulting in a prolonged period on the floor for five days, leading to severe sepsis due to a skin infection. - She was admitted to [facility] o n June 29 and discharged on July 04 after treatment with IV antibiotics for staphylococcal infection and resolution of hyponatremia. After discharge patient was sent to rehab facility, currently she is living at another facility as her home does not have capability of using walker She is requesting a Rollator which we will address as she has a risk of fall due to instability of knees and severe lymphedema with chronic stasis dermatitis - The patient has a history of moderate persistent asthma, not requiring home oxygen, and is managed with an Advair inhaler. - She has atrial fibrillation managed wi Rivaroxaban and Digoxin, with cardiology follow-up at [facility]. - The patient has a history of transient ischemic attack and pulmonary embolism, previously non-compliant with anticoagulation therapy. - She reports bladder incontinence, prev iously treated with Botox injections, now managed with Myrbetriq. - The patient has lower extremity lymphe ana and venous stasis, with a history of stasis dermatitis, and is awaiting a referral to a lymphedema specialist. - She has a mood disorder managed with C italopram, recently reduced from 40 mg to 20 mg. - The patient has mild cognitive disorde r and is concerned about memory issues affecting her ability to drive. She should discuss that further with the Neurology currently patient is on amantadine through neurology Medications - Rivaroxaban 20 mg oral tablet for atri al fibrillation - Myrbetriq for bladder incontinence - Advair inhaler for asthma - Citalopram 20 mg for mood disorder - Digoxin for atrial fibrillation - Metoprolol for blood pressure manageme nt - Nasal spray for allergies - Lasix for lower extremity edema - Memantine for cognitive disorder - Omeprazole 40 mg for gastroesophageal reflux disease Problem List - Moderate persistent asthma - Lower extremity lymphedema - Venous stasis - Atrial fibrillation - History of pulmonary embolism - History of transient ischemic attack - Mood disorder - Gastroesophageal reflux disease - Lipid disorder - Mild cognitive disorder - Severe sepsis secondary to skin infect ion[resolved] - Hyponatremia[resolved] - Bladder incontinence - Stasis dermatitis Diagnostic results - Echocardiogram: Normal left systolic f unction, ejection fraction 60%, no valve pathology - Blood cultures: Positive for Staphyloc occus epidermidis[while admitted in the hospital resolved] - CT abdomen: No evidence of abscess [place] [facility] The patient is currently residing at [facility], a respite care facility, and is considering selling her home due to its unsuitability for her current needs. She is under the care of a farm assistant at [facility] and is awaiting a referral to a lymphedema specialist. Also seeing Neurology Dr. Guerrero Patient Instructions - Continue taking all prescribed medicat ions as directed. - Follow up with farm assistant for atrial fibrillation management. - Await contact from the lymphedema spec ialist for an appointment. - Maintain updated contact information f or healthcare providers. - Discuss driving capabilities with a ne urologist due to memory concerns. Review of Systems General: No fever no chills neurological: No headaches no dizziness ear nose throat: No sore throat no hearing difficulty no ear pain cardiovascular: No syncope, no chest pain, no palpitations gastrointestinal: No nausea vomiting or diarrhea genitourinary: No dysuria , chronic urine incontinence requiring diapers skin: No new complaints Physical Exam general: No acute distress HEENT: No acute findings neck: Supple respiratory system: Lungs are clear cardiovascular: S1-S2 RRR, not in AFib currently gastrointestinal: No pain extremities: Lower extremity lymphedema, venous stasis, stasis dermatitis, unable to wear compression stocking ROLL COVERER: Alert, awake, oriented x3, mild cognitive disorder, walk with the help of walker skin: Normal turgor, PFSH Medical History Asthma Mild cognitive disorder GERD (gastroesophageal reflux disease) Bacteremia History of upper gastrointestinal bleeding (~08/2021) History of TIA (transient ischemic attack) (~2018) Osteopenia (~2012) Atrial fibrillation with RVR Bilateral pulmonary embolism (~06/2023) Moderate persistent asthma Surgical History History of basal cell carcinoma (BCC) excision History of esophagogastroduodenoscopy (EGD) History of colonoscopy Family History Father No problems noted. Mother Cerebral brain hemorrhage Social History Household Members: None Housing: Apartment Do you presently have visiting nurse or other home services: No Alcohol intake: current Alcohol intake frequency: does not drink Patient Tobacco Use Status: Never used Tobacco e-Cigarette/Vaping Use: Never Used Second Hand Smoke Exposure: Yes Advance Directives Date on File: 09/15/21 service: No Current occupational status: retired Gender identity: Female Cognitive needs: No Hearing needs: No Vision needs: Yes Questionnaire Thrive Questionnaire Date Thrive assessed: 03/01/24 I am a: Patient What is your living situation today?: I have a steady place to live Within the past 12 months, did the food you bought not last and you didn't have the money to get more?: Never true Within the past 12 months, did you worry whether your food would run out before you got money to buy more?: Never true Do you have trouble paying for medicines?: No Do you have trouble getting transportation to medical appointments?: No Do you have trouble paying your heating and electricity bill?: No Do you have trouble taking care of your child, family member or friend?: No Do you have trouble with day-to-day activities such as bathing, preparing meals, shopping, managing finances, etc.?: No Are you currently unemployed and looking for a job?: No Are you interested in more education?: No Please select the resources that you would like help with: None Currently or been in a relationship where the following occur: No concerns reported THRIVE Score: 0 LORIE-7 AMB Questionnaire LORIE-7 Date LORIE - 7 assessed: 11/03/23 Source: Developed by Drs. Aries Romero, Kecia Pedraza, Eliezer Hu and colleagues, with an educational tiana from [employer]. Physical exam (Primary Care) Vital Signs: Last Vital Signs Temp 98.3 F 08/16/24 13:06 Pulse 93 08/16/24 13:06 Resp 20 08/16/24 13:06 BP 124/74 08/16/24 13:06 Pulse Ox 96 08/16/24 13:06 BMI result Body Mass Index 31.3 Tobacco/Smoking Status: Tobacco use Status Tobacco use date assessed 08/16/24 08/16/24 13:14 Patient Tobacco Use Status Never used Tobacco 08/16/24 13:03 e-Cigarette/Vaping Use Never Used 08/16/24 13:03 Thrive Assessment: Date of Thrive Assessment Date Thrive assessed 03/01/24 08/16/24 13:03 Currently or been in a relationship where the following occur: No concerns reported Coding Level of Care Code Est Pt Level 5 (95949) Diagnoses Hospital discharge follow-up Z09 Fall, subsequent encounter W19.XXXD Encounter type: subsequent encounter Chronic a-fib I48.20 Lymphedema I89.0 Stasis dermatitis I87.2 Overactive bladder N32.81 Lipid disorder E78.9 Difficulty walking R26.2 Mobility impaired Z74.09 Mild cognitive disorder F09 Chronic GERD K21.9 Dyspnea on exertion R06.09 Recurrent major depressive disorder, in partial remission F33.41 Active/Remission status: in partial remission Compulsive buying F42.8 Time Spent (min) 40 Comment Reviewing hospital notes/chart/labs/zqzc-ri-rhob with the patient/coordination of care Assessment & Plan Assessment & Plan (1) Hospital discharge follow-up: Code(s): Z09 - Encounter for follow-up examination after completed treatment for conditions other than malignant neoplasm Category: Medical (2) Fall: Code(s): W19.XXXA - Unspecified fall, initial encounter Category: Medical Qualifiers: Encounter type: subsequent encounter Qualified Code(s): W19.XXXD - Un specified fall, subsequent encounter (3) Chronic a-fib: Comment: On stephanie Code(s): I48.20 - Chronic atrial fibrillation, unspecified Category: Medical (4) Lymphedema: Code(s): I89.0 - Lymphedema, not elsewhere classified Category: Medical (5) Stasis dermatitis: Code(s): I87.2 - Venous insufficiency (chronic) (peripheral) Category: Medical (6) Overactive bladder: Comment: Response to Botox intermittent Code(s): N32.81 - Overactive bladder Category: Medical (7) Lipid disorder: Code(s): E78.9 - Disorder of lipoprotein metabolism, unspecified Category: Medical (8) Difficulty walking: Code(s): R26.2 - Difficulty in walking, not elsewhere classified Category: Medical (9) Mobility impaired: Code(s): Z74.09 - Other reduced mobility Category: Medical (10) Mild cognitive disorder: Code(s): F09 - Unspecified mental disorder due to known physiological condition Category: Medical (11) Chronic GERD: Code(s): K21.9 - Gastro-esophageal reflux disease without esophagitis Category: Medical (12) Dyspnea on exertion: Code(s): R06.09 - Other forms of dyspnea Category: Medical (13) Major depression, recurrent: Code(s): F33.9 - Major depressive disorder, recurrent, unspecified Category: Medical Qualifiers: Active/Remission status: in partial remission Qualified Code(s): F33.41 - Major depressive disorder, recurrent, in partial remission (14) Compulsive buying: Code(s): F42.8 - Other obsessive-compulsive disorder Category: Medical Plan History - The patient is an 83-year-old female presenting for follow-up after hospitalization for severe sepsis and ongoing management of chronic conditions. This is a long-term care - The patient experienced a fall at home, resulting in a prolonged period on the floor for five days, leading to severe sepsis due to a skin infection. - She was admitted to [facility] on June 29 and discharged on July 04 after treatment with IV antibiotics for staphylococcal infection and resolution of hyponatremia. After discharge patient was sent to rehab facility, currently she is living at another facility as her home does not have capability of using walker She is requesting a Rollator which we will address as she has a risk of fall due to instability of knees and severe lymphedema with chronic stasis dermatitis - The patient has a history of moderate persistent asthma, not requiring home oxygen, and is managed with an Advair inhaler. - She has atrial fibrillation managed with Rivaroxaban and Digoxin, with cardiology follow-up at [facility]. - The patient has a history of transient ischemic attack and pulmonary embolism, previously non-compliant with anticoagulation therapy. - She reports bladder incontinence, previously treated with Botox injections, now managed with Myrbetriq. - The patient has lower extremity lymphedema and venous stasis, with a history of stasis dermatitis, and is awaiting a referral to a lymphedema specialist. - She has a mood disorder managed with Citalopram, recently reduced from 40 mg to 20 mg. - The patient has mild cognitive disorder and is concerned about memory issues affecting her ability to drive. She should discuss that further with the Neurology currently patient is on amantadine through neurology Medications - Rivaroxaban 20 mg oral tablet for atrial fibrillation - Myrbetriq for bladder incontinence - Advair inhaler for asthma - Citalopram 20 mg for mood disorder - Digoxin for atrial fibrillation - Metoprolol for blood pressure management - Nasal spray for allergies - Lasix for lower extremity edema - Memantine for cognitive disorder - Omeprazole 40 mg for gastroesophageal reflux disease Problem List - Moderate persistent asthma - Lower extremity lymphedema - Venous stasis - Atrial fibrillation - History of pulmonary embolism - History of transient ischemic attack - Mood disorder - Gastroesophageal reflux disease - Lipid disorder - Mild cognitive disorder - Severe sepsis secondary to skin infection[resolved] - Hyponatremia[resolved] - Bladder incontinence - Stasis dermatitis Diagnostic results - Echocardiogram: Normal left systolic function, ejection fraction 60%, no valve pathology - Blood cultures: Positive for Staphylococcus epidermidis[while admitted in the hospital resolved] - CT abdomen: No evidence of abscess [place] [facility] The patient is currently residing at [facility], a respite care facility, and is considering selling her home due to its unsuitability for her current needs. She is under the care of a farm assistant at [facility] and is awaiting a referral to a lymphedema specialist. Also seeing Neurology Dr. Guerrero Patient Instructions - Continue taking all prescribed medications as directed. - Follow up with farm assistant for atrial fibrillation management. - Await contact from the lymphedema specialist for an appointment. - Maintain updated contact information for healthcare providers. - Discuss driving capabilities with a neurologist due to memory concerns. - continue medication for urine incontinence Follow-up 3 months Orders: Referrals Lymphedema Clinic Referral I89.0 - Lymphedema, not elsewhere classified
[2024-08-16 13:06] VITALS: BP 124/74; PULSE 93; RESP 20; TEMP 36.8; O2SAT 96; BMI 31.3
== END 2024-08-16 14:30 | disposition home or self-care (01) ==
LOC: HO.HMCC 12:58
PROVIDERS: PCP Internal Medicine; Visit Provider Internal Medicine
DX: I48.20 Chronic atrial fibrillation, unspecified (principal); Z09 Encounter for follow-up examination after completed treatment for conditions other than malignant neoplasm; W19.XXXD Unspecified fall, subsequent encounter; I89.0 Lymphedema, not elsewhere classified; I87.2 Venous insufficiency (chronic) (peripheral); N32.81 Overactive bladder; E78.9 Disorder of lipoprotein metabolism, unspecified; R26.2 Difficulty in walking, not elsewhere classified; Z74.09 Other reduced mobility; F09 Unspecified mental disorder due to known physiological condition; K21.9 Gastro-esophageal reflux disease without esophagitis; R06.09 Other forms of dyspnea

== ENCOUNTER → 2024-08-16 12:58 | Outpatient (BNVA) | payer MEDICARE, SELFPAY | PROVIDERS: PCP Internal Medicine; Visit Provider Internal Medicine | DX: Z09 Encounter for follow-up examination after completed treatment for conditions other than malignant neoplasm (principal); I48.20 Chronic atrial fibrillation, unspecified; I89.0 Lymphedema, not elsewhere classified; I87.2 Venous insufficiency (chronic) (peripheral); N32.81 Overactive bladder; E78.9 Disorder of lipoprotein metabolism, unspecified; R26.2 Difficulty in walking, not elsewhere classified; K21.9 Gastro-esophageal reflux disease without esophagitis; R06.09 Other forms of dyspnea; F33.41 Major depressive disorder, recurrent, in partial remission; F42.8 Other obsessive-compulsive disorder; Z91.81 History of falling | CPT/HCPCS: 99212 ==

== ENCOUNTER 2024-09-15 09:06 | Outpatient (REF) | payer MEDICARE, SELFPAY ==
[2024-09-15 11:53] LABS: Digoxin 0.6 ng/mL (0.8-2.0)
[2024-09-15 11:55] LABS: Anion Gap 11 (12-20); Blood Urea Nitrogen 14 mg/dL (9-16); Calcium 9.4 mg/dL (8.4-10.2); Carbon Dioxide 30 mmol/L (22-29); Chloride 106 mmol/L (96-108); Estimated Glomerular Filt Rate > 60; Potassium 4.0 mmol/L (3.3-5.1); Sodium 143 mmol/L (135-145)
== END 2024-09-15 09:07 | disposition home or self-care (01) ==
LOC: HO.LAB 09:06
PROVIDERS: PCP Internal Medicine; Visit Provider Nurse Practitioner Family
DX: Z02.83 Encounter for blood-alcohol and blood-drug test (principal); Z09 Encounter for follow-up examination after completed treatment for conditions other than malignant neoplasm; I48.21 Permanent atrial fibrillation; I26.99 Other pulmonary embolism without acute cor pulmonale; I89.0 Lymphedema, not elsewhere classified; Z79.899 Other long term (current) drug therapy; Z79.01 Long term (current) use of anticoagulants
CPT/HCPCS: 36415; 80048; 80162; 99212

== ENCOUNTER 2024-09-15 09:06 | Outpatient (AMB) | payer MEDICARE, SELFPAY ==
--- OUTSIDE RECORDS SUMMARY | 2024-06-07 11:20 | XMS_ITS ---
Author Organization [facility] Address [address] [place] [address] Care Team Providers Care Relocation Services Specialist Name Role Phone Cesar ENGLISH, Asma Primary Care Provider Aries Rose [phone] Allergies Allergen (clinical drug ingredient) Drug/Non Drug Allergy documented on EMR Reaction Allergy Type Onset Date Status penicillamine Penicillamine Unknown Drug Allergy Active amoxicillin Amoxicillin Unknown Drug Allergy Act teena Medications Medication SIG (Take, Route, Frequency, Duration) Notes Start Date End Date Status Citalopram Hydrobromide 20 MG TAKE 1 TABLET EVERY DAY Oral for 90 Active Donepezil HCl 10 MG TAKE 1 TABLET BY KISHOR TH AT BEDTIME Oral for 90 Active Celecoxib 200 MG TAKE 1 CAPSULE EVERY DAY Oral for 90 Active Xarelto 20 MG 1 tablet with food Orally Once a day for 30 day(s) Active Flovent HFA 110 MCG/ACT 1 puff Inhalatio n Twice a day Active Metoprolol Succinate ER 50 MG TAKE 1 TABLET BY MOUTH DAILY Oral for 90 Active Furosemide 20 MG TAKE 1 TABLET BY KISHOR TH EVERY DAY IN THE MORNING Oral for 7 Active Rosuvastatin Calcium 20 MG TAKE 1 TABLET BY MOUTH EVERY DAY Oral for 90 Active Omeprazole 40 MG TAKE 1 CAPSULE BY MO UTH DAILY EVERY MORNING for 90 Active Lialda 1.2 GM 4 Orally Once a day for 30 day(s) 04/19/2019 Not-Taking Magnesium Active Claritin 10 MG 1 tablet Orally Once a day for 30 day(s) Active Multivitamin Adult - as [...] Status Risk Notes Problem Iron deficiency anemia (D50.9) Active confirmed Problem Gastroesophageal reflux disease (765670124) GERD (gastroesophag eal reflux disease) (K21.9) Active confirmed Problem History of gastric ulcer (787011714) History of gastric ulcer (Z87.19) Active confirmed [...] N/A Encounters Encounter Location Date Provider Diagnosis [facility] [address] [place] [address] 06/07/2024 Aries Hernández Iron deficiency anemia D50.9 [...] Progress Notes * ANGI DREW BDOB: 1940 (83 yo F)Acc No.[id number]:06/07/2024 Progress Notes Patient: ANGI PENA B Provider: Suman Hernández MD :1940 A ge:83 Y S ex:Female Date:06/07/2024 Address:[address] [place] [address] Pcp:Kallie Guerrero MD Subjective: * Chief Complaints: * * Medical History: A sthma- stressed induced, Hypertension, Depression, TIA, Denies [place],DM,CVA,renal disease, Neg colonoscopy in 2008 with me [...] Codes: 4 3235 UPPR GI ENDOSCOPY, DIAGNOSIS, 68901 DIAGNOSTIC COLONOSCOPY * Preventive Medicine: Screenings: F all Risk Screening F all Risk Assessment: N o falls in the past year, S creening: N o falls in the past year, A ssessment: N ot performed, no reason specified, P huong of Care: N ot documented, no reason specified. Counseling: C are goal follow-up plan: A robert Normal BMI Follow-up D ietary management education, guidance, and counseling, B [place] management provided Y es. Urinary Incontinence: U rinary Incontinence A ssessment: P resent, P huong of care documented: Y es. * * The named appointment provid er may or may not be the originator of this progress note, and it is not deemed complete until electronically signed by the appointment provider. Sign off status: Pending * Provider: Suman Hernández MD Date: 0 06/07/2024 Generated for Bryon marin/Leonides/Ritaitting on: 0 09/15/2024 09:23 AM EDT
[2024-09-15 09:12] VITALS: BP 114/72; PULSE 56; BMI 31.1
--- NOTE | 2024-09-15 09:12 | A.OFFVIS_ITS ---
Vital Signs 09/15/24 09:12 Height 5 ft 7 in Weight 198 lb 13.711 oz BMI 31.1 BP 114/72 Blood Pressure Location Lt brachial Position Sitting Pulse 56 Pulse Source Pulse Oximeter Intake Visit Reasons: 6mth f/u Knife Finisher Required: No Allergies pantoprazole Allergy (Intermediate, Verified 09/15/24 09:16) NAUSEA potassium Allergy (Intermediate, Verified 09/15/24 09:16) Itching doxycycline Allergy (Mild, Verified 09/15/24 09:16) Rash lorazepam Allergy (Unknown, Verified 09/15/24 09:16) unknown amoxicillin (AMOXICILLIN) Adverse Reaction (Intermediate, Verified 09/15/24 09:16) NAUSEA/VOMITING Medication List - Last Reconciled 09/15/24 by Cass Oden NP-C [Bilateral Velcro based compression garments-compression class 20-30 As directed ] citalopram 40 mg PO DAILY cyanocobalamin (vitamin B-12) (Vitamin B-12) 50 mcg PO DAILY digoxin 125 mcg PO MOWEFR 90 days fluticasone propion-salmeterol 115-21 mcg/actuation (Advair HFA) 2 puffs inhalation Q12H fluticasone propionate 50 mcg/actuation 1 spray intranasal DAILY 30 days furosemide 20 mg PO QAM lactobacillus combination no.4 (Probiotic) 3,000 mmu cells PO DAILY magnesium 200 mg PO DAILY memantine 5 mg PO BID metoprolol tartrate 12.5 mg (1/2 x 25 mg) PO BID 90 days metoprolol tartrate 12.5 mg PO BID mirabegron ER (Myrbetriq) 25 mg PO DAILY multivitamin 1 tab PO DAILY nystatin (Nyamyc) 1 appl See Protocol topical TID omeprazole 40 mg PO DAILY@0630 rivaroxaban 20 mg PO DAILY@1700 [rollator walker with seat and brakes As directed] rosuvastatin 20 mg PO BEDTIME HPI HPI 6mth f/u: Details: Madelyn is an 83-year-old female with past medical history of obesity, hyperlipidemia, lymphedema of lower extremities, asthma, persistent atrial fibrillation, bilateral pulmonary embolism 06/2023 who was recently hospitalized after having a fall at home and was on the floor for several days. She was elsie ated for dehydration. Today she reports that she is now at a assisted living facility. She describes that she was a hoarder and has been working with family members to clear out her home. Physically she has been doing much better. She has not had any recurrent falls and her prior skin wounds are fully healed. She is denying any significant shortness of breath, no PND, orthopnea. She has chronic lower leg edema. No chest discomfort at rest or with activity. No heart palpitations, lightheadedness, presyncope, syncope. She is taking all her meds but states she has been taking the metoprolol full tablet b.i.d. and digoxin daily. Metoprolol is ordered as 12.5 mg b.i.d. and her digoxin is Wednesday. Reminded of this. [facility] Medical History Asthma Mild cognitive disorder GERD (gastroesophageal reflux disease) Bacteremia History of upper gastrointestinal bleeding (~08/2021) History of TIA (transient ischemic attack) (~2018) Osteopenia (~2012) Atrial fibrillation with RVR Bilateral pulmonary embolism (~06/2023) Moderate persistent asthma Surgical History History of basal cell carcinoma (BCC) excision History of esophagogastroduodenoscopy (EGD) History of colonoscopy Family History Father No problems noted. Mother Cerebral brain hemorrhage Social History Household Members: None Housing: Apartment Do you presently have visiting nurse or other home services: No Alcohol intake: current Alcohol intake frequency: does not drink Patient Tobacco Use Status: Never used Tobacco e-Cigarette/Vaping Use: Never Used Second Hand Smoke Exposure: Yes Advance Directives Date on File: 09/15/21 service: No Current occupational status: retired Gender identity: Female Cognitive needs: No Hearing needs: No Vision needs: Yes Review of Systems Const All systems reviewed & are unremarkable except as noted in HPI and below ENT Denies dizziness Card Denies chest pain, Denies chest pain at rest, Denies chest pain with activity, Denies rapid heart rate, Denies pedal edema, Denies edema, Denies leg edema, Denies lightheadedness, Denies palpitations, Denies dyspnea, Denies dyspnea on e xertion and Denies orthopnea Resp Denies cough, Denies dyspnea and Denies dyspnea on exertion GI Denies hematochezia and Denies change in stool character Musc Denies abnormal gait, Denies limited range of motion, Denies muscle cramps, Denies muscle weakness, Denies numbness, Denies radiating pain into limb, Denies stiffness and Denies tingling Neuro Denies abnormal gait, Denies dizziness, Denies numbness and Denies tingling Endo Denies palpitations Physical Exam Vital Signs: Last Vital Signs Pulse 56 09/15/24 09:12 BP 114/72 09/15/24 09:12 BMI result Body Mass Index 31.1 Const General: cooperative, healthy appearing, comfortable and no acute distress Orientation/consciousness: patient oriented x3 Neck Neck: Yes normal visual inspection Resp Effort & Inspection: normal respiratory effort Auscultation: clear to auscultation bilaterally, no crackles, no rales, no rhonchi and no wheezes Cardio Rate: regular rate Heart sounds: S1 normal heart sound present, S2 normal heart sound present, no gallops, no murmurs and no rubs Neuro General: patient oriented x3 Extrem Other: bilateral lymphedema of lower extremeties Psych Appearance: grossly normal Mental Status: mental status grossly normal Speech and movement: Normal speech and movement present Assessment & Plan Assessment & Plan (1) Atrial fibrillation: Code(s): I48.91 - Unspecified atrial fibrillation Category: Medical Qualifiers: Atrial fibrillation type: permanent Qualified Code(s): I48.21 - Permanent atrial fibrillation Plan: History of persistent atrial fibrillation treated with heart rate control using metoprolol and digoxin. Will have her take metoprolol as directed 12.5 mg b.i.d.. Will have her reduce digoxin back to her usual Wednesday. Will check digoxin level today. Continue Xarelto for anticoagulation. No bleeding issues reported. Echo done 07/01/2023 showing EF 55-60%, no valve abnormalities. Cardiology follow-up 6 months, sooner if needed. (2) Bilateral pulmonary embolism: Onset Date: ~06/2023 Code(s): I26.99 - Other pulmonary embolism without acute cor pulmonale Category: Medical Plan: 06/2023, bilateral pulmonary embolism. Continue Xarelto for anticoagulation. (3) Lymphedema: Code(s): I89.0 - Lymphedema, not elsewhere classified Category: Medical Plan: Chronic, currently stable. Continues on daily Lasix. (4) Hospital discharge follow-up: Code(s): Z09 - Encounter for follow-up examination after completed treatment for conditions other than malignant neoplasm Category: Medical Plan: Hospital discharge summary for fall, skin wounds, bacteremia reviewed. Plan Time spent on chart review, documentation, interviewed assessment Orders: Orders Digoxin Today I48.21 - Permanent atrial fibrillation Basic Metabolic Panel Today I48.21 - Permanent atrial fibrillation Coding Level of Care Code Est Pt Level 4 (50073) Complex EM visit Add On G2211 Diagnoses Permanent atrial fibrillation I48.21 Atrial fibrillation type: permanent Bilateral pulmonary embolism I26.99 Lymphedema I89.0 Hospital discharge follow-up Z09 Time Spent (min) 28
--- OUTSIDE RECORDS SUMMARY | 2024-09-15 09:23 | XMS_ITS | Patient Health Record ---
[facility] Organization [facility] Address [address] [place] [address] Care Team Providers Care Emergency Department Clinician Name Role Phone [facility]esar ENGLISH[facility] Provider Aman Kohler Unavailable [phone] Allergies Allergen (clinical drug ingredient) Drug/Non Drug [...] 200 MG 1 tablet Orally Once a week; Duration: 30 days Not-Taking Flovent HFA 44 MCG/ACT [...] ulcer plantar left 2nd mtpj in her inserts; Duration: . 06/05/2014 Active Citalopram Hydrobromide Active Xarelto 20 MG Orally Active Cod Liver Oil Active Fenofibrate Not-Taki ng Donepezil HCl Active Eliquis Not-Taking Albuterol Sulfate Ac tive Metoprolol Succinate Active AmLactin 12 % 1 application to affected area Externally Twice a day to feet; Duration: 30 days Active Immunizations Vaccine Route Administration Date Status Comme nts Influenza Unknown 12/30/2018 Administered Pneumococcal Unknown 04/24/2015 Administered COVID-19 Moderna Vaccine Unknown 04/09/2020 Administere [...] Problem Status W/U Status Risk Notes Problem Bilateral atherosclerosis of arteries of lower limbs (disorder) (51174965611397413 ) Unspecified atherosclerosis of [place] arteries of extremities, bilateral legs (I70.203) Active confirmed Problem Lymphedema (07943140) Lymphedema (I89.0) Active confirmed Plan Of Treatment Pending Test Test Name Order Date X ray : Foot, left 2V 05/29/2011 X ray : Foot, right 2V 05/29/2011 *Liver Function Test (LFT) 09/27/2017 X ray : Foot, left 3V 06/05/2014 38866-JSMKHMH NAIL, 6 OR MORE 05/22/2014 59075-GXYHJPG NAIL, 6 OR MORE 04/21/2013 60544-QVYKQHC NAIL, 6 OR MORE 07/28/2013 61775-HDWQIBG NAIL, 6 OR MORE 11/14/2013 01157-SKRRYRO NAIL, 6 OR MORE 02/09/2014 91845-WIBPKOH NAIL, 6 OR MORE 09/10/2014 00137-HQADMDJ NAIL, 6 OR MORE 11/30/2014 89774-NIOMSJQ NAIL, 6 OR MORE 03/01/2015 99702-JHVUGDA NAIL, 6 OR MORE 05/24/2015 63021-RPVRREL NAIL, 6 OR MORE 08/16/2015 24068-OPRWFYR NAIL, 6 OR MORE 11/22/2015 74542-MYEADMJ NAIL, 6 OR MORE 02/11/2016 84958-CFZFUZI NAIL, 6 OR MORE 04/05/2012 44600-OIPAVZL NAIL, 6 OR MORE 10/23/2011 17930-FAEKFBQ NAIL, 6 OR MORE 01/05/2012 54420-VUJRTNE NAIL, 6 OR MORE 07/12/2012 81441-LINCYBD NAIL, 6 OR MORE 10/14/2012 74514-LWRLYEE NAIL, 6 OR MORE 01/13/2013 22115-BDJDOYP NAIL, 6 OR MORE 08/14/2011 04641-BPQTJAE NAIL, 6 OR MORE 05/29/2011 87624-ZICHNLK NAIL, 6 OR MORE 11/18/2010 07519-VIEVPWL NAIL, 6 OR MORE 09/27/2017 91181-VJTBXQO NAIL, 6 OR MORE 05/29/2016 98162-WCLGVLN NAIL, 6 OR MORE 08/28/2016 73103-YFQIEMD NAIL, 6 OR MORE 12/08/2016 87153-FDFDWQL NAIL, 6 OR MORE 03/09/2017 83261-BOFNYVS NAIL, 6 OR MORE 12/28/2017 29574-Jvqi Destruction, -08/28/2016 66241-Mhmb Destruction, 03-0711/30/2014 39412-Eqzn Destruction, -11/18/2010 15392-Tyoj Destruction, -14 08/14/2011 97457-Vjgu Destruction, -14 02/27/2011 20304-Mczx Destruction, 03-0705/29/2011 27841-Qtdy Destruction, 03-0701/13/2013 49546-Tcat Destruction, 03-0710/14/2012 46680-Seos Destruction, -07/12/2012 03288-Wroy Destruction, 03-0704/05/2012 74764-Xosz Destruction, -14 10/23/2011 21585-Meik Destruction, -14 01/05/2012 64038-Rdoh Destruction, 14 02/11/2016 35492-Mjlo Destruction, -11/22/2015 20818-Ncmu Destruction, 03-0708/16/2015 81498-Diis Destruction, 03-0705/24/2015 21738-Rhgs Destruction, -03/01/2015 43369-Mrzd Destruction, -07/03/2014 83628-Drmx Destruction, 03-0709/10/2014 03461-Vmkk Destruction, -14 07/28/2013 59028-Zgdb Destruction, 1-14 04/21/2013 43622-Prgs Destruction, 1-14 05/22/2014 88226-Chwx Destruction, 1-14 11/14/2013 10312-Nlqt Destruction, 1-14 02/09/2014 24768-Bgqodyjn Plate 07/03/2014 72460-Bsthzzpe Plate 05/22/2014 94823-Zdimzfkm Plate 04/21/2013 11498-Pqwpimka Plate 07/28/2013 45227-Ilsksbbi Plate 02/09/2014 50322-Zocbyrmq Plate 11/14/2013 42955-Nthivqfd Plate 09/10/2014 06910-Ryjdfgza Plate 11/30/2014 69174-Sightxdb Plate 04/05/2012 99816-Cmauphku Plate 10/23/2011 49818-Eirokkpj Plate 01/05/2012 78878-Qharrshc Plate 07/12/2012 42756-Hztsjgdz Plate 01/13/2013 07708-Bcmyaqfj Plate 05/29/2011 58892-Llkgethu Plate 02/27/2011 32511-Bbspduah Plate 11/18/2010 47212-BXVWAQL SKIN/TISSUE 05/22/2014 70151-BBCGRID SKIN/TISSUE 06/05/2014 86219-YWAV SKIN LESIONS, OVER 4 03/01/19 16 55501-KSOA SKIN LESIONS, OVER 4 05/24/19 16 61710-PXXM SKIN LESIONS, OVER 4 08/16/19 16 69529-QIGX SKIN LESIONS, OVER 4 11/22/19 16 96958-OAKX SKIN LESIONS, OVER 4 02/11/20 16 63172-TBOQ SKIN LESIONS, OVER 4 09/28/19 18 33807-GYBY SKIN LESIONS, OVER 4 12/29/19 18 07049-SFHB SKIN LESIONS, OVER 4 12/09/19 17 39430-FFZH SKIN LESIONS, OVER 4 05/30/19 17 16410-OTPE SKIN LESIONS, OVER 4 08/29/19 17 71162-FDBV SKIN LESIONS, OVER 4 06/16/19 18 82360-OCYS SKIN LESIONS, OVER 4 03/09/19 18 22609-ANRM SKIN LESIONS, OVER 4 03/29/19 19 02740-ZJAE SKIN LESIONS, OVER 4 07/09/19 19 02276-IPSV SKIN LESIONS, OVER 4 10/08/19 19 10208-SNRF SKIN LESIONS, OVER 4 01/07/20 19 68091-WTGF SKIN LESIONS, OVER 4 04/07/19 20 67979-EPJM SKIN LESIONS, OVER 4 06/30/19 20 22305-YAIM SKIN LESIONS, OVER 4 09/29/19 20 18636-HPYV SKIN LESIONS, OVER 4 12/29/19 20 33261-QROA SKIN LESIONS, OVER 4 04/09/19 21 42343-UHQD SKIN LESIONS, OVER 4 07/06/19 21 18868-GAIR SKIN LESIONS, OVER 4 10/05/19 21 95618-LWPD SKIN LESIONS, OVER 4 01/04/20 21 45948-LHTD SKIN LESIONS, OVER 4 04/04/19 22 55689- Nail Unit Biopsy 06/15/2017 Insurance Providers Payer Name Payer Address Payer Phone Subscriber Number Group Number Insured Name Patient Relationship to Insured Coverage Start Date Coverage End Date Medicare [employer] [address] [place] [address] [id number] Madelyn Clark Self - patient is the insured Medical (General) History Medical History History ICD Code asthma chicken pox hypertension measles mumps mumps measles hypertension chicken pox asthma Cellulitis Diverticulitis Surgical History Surgery Date(Month/Year) oral surgery 11/05 skin cancer removal forehead 11/28/13 Dental Implant 05/08/15 [place] History Reason [place] [facility] [place] [facility] [place] [facility] [place] 07/16/16-07/20/16 [facility] for Dental implant 05/08/15 MRI, TIA, MRA 08/06 oral surgery 11/05
--- OUTSIDE RECORDS SUMMARY | 2024-09-15 09:23 | XMS_ITS | Encounter Summary ---
Author Organization [facility] Address [address] [place] [address] Care Team Providers Care Poultry Hatchery Manager Name Role Phone Kallie Guerrero MD Primary Care Provider [phone] Encounter Details Date Type Department Care Team (Late st Contact Info) Description 07/08/2024 Lab Requisition [facility] - Main Lab [address] [facility] [place] [address] Bruce Mcgrath MD [address] [place] [address] Unspecified atrial fibrillation (CMS/HCC V24, CMS/HCC V28); Sepsis, unspecified organism (CMS/HCC V24, CMS/HCC V28); Bacteremia Social History Tobacco Use Types Packs/Day Years Used Date Smoking Tobacco: Never Assessed Comments Unknown Sex and Gender Information Value Date Recorded Sex Assigned at Not on file Legal Sex Female 11:53 PM EST Gender Identity Not on file Sexual Orientation Not on file documented as of this encounter Plan of Treatment Not on file documented as of this encounter Goals Goal Patient Goal Type Associated Problems Recent Progress Patient-Stated? Author the legs to be better General On track(2024 3:55 PM EDT) Yes Sigrid Jolley, OTR/L Note: The legs not to be so swollen, to not feel so stiff and painfull and for them to look better, not have wounds 01/25 progressing; no wounds 05/03/2024 NO weeping, skin of both LE's presents with decreased hyper pigmentation ( darkened skin) Goal has been met decreased volumes General On track(2024 4:26 PM EDT) Yes Sigrid Jolley, OTR/L Note: STG: Patient [...] loss of 19.3 cm = 3.33 % 05/03 Patient presents with increased size in both LE's since last measured 03/20/2024 However she continues with decreased size since initial eval 01/03/2024 03/20/2024 05/03/2024 05/29/2024 Right LE went from 596.5 cm to 582.7 cm 594.5 cm 565.9 cm Left LE went from 579.4 cm to 560.1 cm 570.2 cm 565.7 cm LTG's Patient will have decreased volumes of at least 5 % in both LE's Right LE lost 30.6 cm of total circumferences which is a loss of 5.12 % Left LE lost 13.7 cm of total circumferences which is a loss of 2.36 % LTG. has been met for R LE <enter goal here> General Improving( 4:29 PM EDT) No Sigrid Jolley, OTR/L Note: STG's Patient [...] legs to bjorn her shoes and socks LTG has been met, patient presents with increased ability to flex her left leg. HOWEVER OA. / pain in her right knee affects her ability to flex her right knee. Patient appears at max. Level of functional ability at this time lymph edema self management General No change(05/29 4:30 PM EDT) Sigrid Broussard P, OTR/L Note: 1 : Patient will [...] velcro compression garments has been send to [facility] follow up 05/03/2024 Patient has slight increase in size of both legs after interruption in therapy for more than 2 weeks. Patient has not received recommended compression garments yet 05/29/2024 therapist communicated with [facility] who reported that both her hybrid liners and velcro wraps have been delivered to patient's home . Patient reports that she only received liners .. Patient to follow up with [facility] documented as of this encounter Procedures Procedure Name Priority Date/Time Associated Diagnosis Comments COMPLETE BLOOD COUNT Routine 07/10/2024 8:30 AM EDT Unspecified atrial fibrillation (CMS/HCC V24, CMS/HCC V28) Sepsis, unspecified organism (CMS/HCC V24, CMS/HCC V28) Bacteremia BASIC METABOLIC PANEL Routine 07/10/2024 8:30 AM EDT Unspecified atrial fibrillation (CMS/HCC V24, CMS/HCC V28) Sepsis, unspecified organism (CMS/HCC V24, CMS/HCC V28) Bacteremia documented in this encounter Results * Basic metabolic panel (07/10/2024 8:30 AM EDT) Sodium 143 133 - 145 mmol/L LAB CHEMISTRY METHOD 07/10/2024 12:08 PM EDT [facility] Potassium 4.1 3.5 - 5.5 mmol/L LAB CHEMISTRY METHOD 07/10/2024 12:08 PM [facility] Chloride 107 96 - 110 mmol/L LAB CHEMISTRY METHOD 07/10/2024 12:08 PM [facility] CO2 29 21 - 32 mmol/L LAB CHEMISTRY METHOD 07/10/2024 12:08 PM [facility] Anion Gap 7 3 - 11 LAB CHEMISTRY METHOD 07/10/2024 12:08 PM [facility] Glucose 81 70 - 100 mg/dL LAB CHEMISTRY METHOD 07/10/2024 12:08 PM [facility] BUN 16 5 - 25 mg/dL LAB CHEMISTRY METHOD 07/10/2024 12:08 PM [facility] Creatinine 0.54 0.50 - 1.10 mg/dL LAB CHEMISTRY METHOD 07/10/2024 12:08 PM [facility] eGFR 92 >=60 mL/min/1. 73m2 LAB CHEMISTRY METHOD 07/10/2024 12:08 PM [facility] Comment:Calculation based on the Chronic Kidney Disease Epidemiology Collaboration (CKD-EPI) equation refit without adjustment for race. BUN/Creatinine Ratio 29.6 LAB CHEMISTRY METHOD 07/10/2024 12:08 PM [facility] Calcium 8.9 8.5 - 10.5 mg/dL LAB CHEMISTRY METHOD 07/10/2024 12:08 PM [facility] Blood Venous blood specimen / Unknown Venipuncture / Unknown 07/10/2024 8:30 AM EDT 07/10/2024 10:28 AM EDT us Bruce Mcgrath MD LAB BLOOD ORDERABLES Final Result [facility] [address] [place] [address], [place] [phone] * (ABNORMAL) Complete blood count (07/10/2024 8:30 AM EDT) [facility] WBC 7.8 4.8 - 10.8 K/mcL LAB HEMETOLOGY METHOD 07/10/2024 11:12 AM [facility] RBC 4.00 3.80 - 4.80 M/mcL LAB HEMETOLOGY METHOD 07/10/2024 11:12 AM [facility] Hemoglobin 12.3 11.5 - 16.0 g/dL LAB HEMETOLOGY METHOD 07/10/2024 11:12 AM [facility] Hematocrit 39.7 35.0 - 47.0 % LAB HEMETOLOGY METHOD 07/10/2024 11:12 AM [facility] MCV 98.3(H) 79.0 - 98.0 FL LAB HEMETOLOGY METHOD 07/10/2024 11:12 AM [facility] MCH 30.4 27.0 - 32.0 pcg LAB HEMETOLOGY METHOD 07/10/2024 11:12 AM [facility] MCHC 31.0(L) 32.0 - 37.0 g/dL LAB HEMETOLOGY METHOD 07/10/2024 11:12 AM [facility] RDW 25.0(H) 11.0 - 15.0 % LAB HEMETOLOGY METHOD 07/10/2024 11:12 AM [facility] Platelets 389 130 - 400 K/mcL LAB HEMETOLOGY METHOD 07/10/2024 11:12 AM [facility] MPV 10.8 7.0 - 11.0 FL LAB HEMETOLOGY METHOD 07/10/2024 11:12 AM [facility] NRBC 0.0 <1.0 % LAB HEMETOLOGY METHOD 07/10/2024 11:12 AM [facility] NRBC Absolute 0.00 <0.10 K/mcL LAB HEMETOLOGY METHOD 07/10/2024 11:12 AM EDT [facility] Blood Venous blood specimen / Unknown Venipuncture / Unknown 07/10/2024 8:30 AM EDT 07/10/2024 10:28 AM EDT us Bruce Mcgrath MD LAB BLOOD ORDERABLES Final Result [facility] [address] [place] [address], documented in this encounter Visit Diagnoses Diagnosis Unspecified atrial fibrillation (CMS/HCC V24, CMS/[facility] V28) Sepsis, unspecified organism (CMS/HCC V24, CMS/[facility] V28) Bacteremia documented in this encounter Care Teams Poultry Hatchery Manager Relationship Specialty Start Date End Date Kallie Guerrero MD [address] [place] [address] PCP - General Internal Medicine 12/23/23 documented as of this encounter
== END 2024-09-15 10:12 | disposition home or self-care (01) ==
LOC: HO.HCS 09:07
PROVIDERS: PCP Internal Medicine; Visit Provider Nurse Practitioner Family
DX: I48.21 Permanent atrial fibrillation (principal); I26.99 Other pulmonary embolism without acute cor pulmonale; I89.0 Lymphedema, not elsewhere classified; Z09 Encounter for follow-up examination after completed treatment for conditions other than malignant neoplasm
CPT/HCPCS: 99214; G2211

== ENCOUNTER 2024-10-18 11:37 | Outpatient (AMB) | payer MEDICARE, SELFPAY ==
--- OUTSIDE RECORDS SUMMARY | 2024-06-07 11:20 | XMS_ITS ---
Author Organization [facility] Address [address] [place] [address] Care Team Providers Care Integration Engineer Name Role Phone Cesar ENGLISH, Asma Primary Care Provider Aries Rose [phone] Allergies Allergen (clinical drug ingredient) Drug/Non Drug [...] Status Risk Notes Problem Iron deficiency anemia (86618752) Iron deficiency anemia (D50.9) Active confirmed Problem Gastroesophageal reflux disease (210011657) GERD (gastroesophag eal reflux disease) (K21.9) Active confirmed Problem History of gastric ulcer (698686238) History of gastric ulcer (Z87.19) Active confirmed [...] N/A Encounters Encounter Location Date Provider Diagnosis [facility] [address] [facility] [address] [place] [address] 06/07/2024 Aries Hernández Iron deficiency anemia D50.9 [...] PROFILE 06/07/2024 Ferritin 06/07/2024 Progress Notes * YARELIS ANGI GARCÍA BDOB: 1940 (83 yo F)Acc No.[id number]:06/07/2024 Progress Notes Patient: Hernesto MELISSABRENNAANGI ROCA B Provider: Suman Hernández MD :1940 A ge:83 Y S ex:Female Date:06/07/2024 Address:[address] [place] [address] Pcp:Kallie Guerrero MD Subjective: * Chief Complaints: * * Medical History: A sthma- stressed induced, Hypertension, Depression, TIA, Denies [place],DM,CVA,renal disease, Neg colonoscopy in 2008 with me [...] Codes: 4 3235 UPPR GI ENDOSCOPY, DIAGNOSIS, [address]97[address] DIAGNOSTIC COLONOSCOPY * Preventive Medicine: Counseling: C are goal follow-up plan: A robert Normal BMI Follow-up D ietary management education, guidance, and counseling, B [place] management provided Y es. Urinary Incontinence: U [...] 06/07/2024 Generated for Bryon marin/Leonides/Ritaitting on: 0 10/18/2024 12:36 PM EDT
--- OUTSIDE RECORDS SUMMARY | 2024-08-07 09:10 | XMS_ITS ---
Author Organization [facility] Address [address] [place] [phone] Care Team Providers Care Drilling Superintendent Name Role Phone Cesar ENGLISH, Kallie Primary Care Provider Aries Rose [phone] REASON FOR VISIT fe def anemia, melia,hx gastric ulcer Encounters Encounter Location Date Provider Diagnosis [facility] [place] [address] [place] [phone] 08/07/2024 Aries Hernández Plan Of Treatment No Information Progress Notes * ANGI DREW BDOB: 1940 (83 yo F)Acc No.[id number]:08/07/2024 EGD and COL/MAC Patient: Hernesto HENDERSON ANGI GARCÍA Provider: Suman Hernández MD :1940 A ge:83 Y S ex:Female Date:08/07/2024 Address:[address] [place], [place] [phone] Pcp:Kallie Guerrero MD Subjective: * Chief Complaints: [...] 0 08/07/2024 Generated for Bryon marin/Leonides/Amanuelsmitting on: 0 10/18/2024 12:36 PM EDT
--- NOTE | 2024-10-18 11:44 | MHC.PC.OV ---
Intake Visit Reasons: [facility] [id number] Allergies pantoprazole Allergy (Intermediate, Verified 09/15/24 09:16) NAUSEA potassium Allergy (Intermediate, Verified 09/15/24 09:16) Itching doxycycline Allergy (Mild, Verified 09/15/24 09:16) Rash lorazepam Allergy (Unknown, Verified 09/15/24 09:16) unknown amoxicillin (AMOXICILLIN) Adverse Reaction (Intermediate, Verified 09/15/24 09:16) NAUSEA/VOMITING Tobacco use date assessed: 08/16/24 Dental Screening Dental Screen Date: 08/16/24 [facility] Medical History Asthma Mild cognitive disorder GERD (gastroesophageal reflux disease) Bacteremia History of upper gastrointestinal bleeding (~08/2021) History of TIA (transient ischemic attack) (~2018) Osteopenia (~2012) Atrial fibrillation with RVR Bilateral pulmonary embolism (~06/2023) Moderate persistent asthma Surgical History History of basal cell carcinoma (BCC) excision History of esophagogastroduodenoscopy (EGD) History of colonoscopy Family History Father No problems noted. Mother Cerebral brain hemorrhage Social History Household Members: None Housing: Apartment Do you presently have visiting nurse or other home services: No Alcohol intake: current Alcohol intake frequency: does not drink Patient Tobacco Use Status: Never used Tobacco e-Cigarette/Vaping Use: Never Used Second Hand Smoke Exposure: Yes Advance Directives Date on File: 09/15/21 service: No Current occupational status: retired Gender identity: Female Cognitive needs: No Hearing needs: No Vision needs: Yes Questionnaire Thrive Questionnaire Date Thrive assessed: 03/01/24 I am a: Patient What is your living situation today?: I have a steady place to live Within the past 12 months, did the food you bought not last and you didn't have the money to get more?: Never true Within the past 12 months, did you worry whether your food would run out before you got money to buy more?: Never true Do you have trouble paying for medicines?: No Do you have trouble getting transportation to medical appointments?: No Do you have trouble paying your heating and electricity bill?: No Do you have trouble taking care of your child, family member or friend?: No Do you have trouble with day-to-day activities such as bathing, preparing meals, shopping, managing finances, etc.?: No Are you currently unemployed and looking for a job?: No Are you interested in more education?: No Please select the resources that you would like help with: None Currently or been in a relationship where the following occur: No concerns reported THRIVE Score: 0 LORIE-7 AMB Questionnaire LORIE-7 Date LORIE - 7 assessed: 11/03/23 Source: Developed by Drs. Aries Romero, Kecia Pedraza, Eliezer Hu and colleagues, with an educational tiana from [employer]. Physical exam (Primary Care) Tobacco/Smoking Status: Tobacco use Status Tobacco use date assessed 08/16/24 08/16/24 13:14 Patient Tobacco Use Status Never used Tobacco 08/16/24 13:03 e-Cigarette/Vaping Use Never Used 08/16/24 13:03 Thrive Assessment: Date of Thrive Assessment Date Thrive assessed 03/01/24 08/16/24 13:03 Currently or been in a relationship where the following occur: No concerns reported Coding
[2024-10-18 11:45] VITALS: BP 118/76; PULSE 81; RESP 20; TEMP 36.6; O2SAT 98; BMI 30.5
--- NOTE | 2024-10-18 11:45 | A.OFFVIS_ITS ---
Intake Vital Signs 10/18/24 11:45 Height 5 ft 7 in Weight 195 lb BMI 30.5 BP 118/76 Blood Pressure Location Lt brachial Position Sitting Respiration 20 Pulse 81 Pulse Source Pulse Oximeter Temp 97.8 F Temp Source Oral Pulse Oximetry (%) 98 Oxygen Delivery Method Room Air Intake Visit Reasons: SWV G0439 Allergies pantoprazole Allergy (Intermediate, Verified 10/18/24 11:47) NAUSEA potassium Allergy (Intermediate, Verified 10/18/24 11:47) Itching doxycycline Allergy (Mild, Verified 10/18/24 11:47) Rash lorazepam Allergy (Unknown, Verified 10/18/24 11:47) unknown amoxicillin (AMOXICILLIN) Adverse Reaction (Intermediate, Verified 10/18/24 11:47) NAUSEA/VOMITING Medication List - Last Reconciled 10/18/24 by Kallie Guerrero MD [Bilateral Velcro based compression garments-compression class 20-30 As directed ] citalopram 40 mg PO DAILY cyanocobalamin (vitamin B-12) (Vitamin B-12) 50 mcg PO DAILY digoxin 125 mcg PO MOWEFR 90 days fluticasone propion-salmeterol 115-21 mcg/actuation (Advair HFA) 2 puffs inhalation Q12H fluticasone propionate 50 mcg/actuation 1 spray intranasal DAILY 30 days furosemide 20 mg PO QAM lactobacillus combination no.4 (Probiotic) 3,000 mmu cells PO DAILY magnesium 200 mg PO DAILY memantine 5 mg PO BID metoprolol tartrate 12.5 mg (1/2 x 25 mg) PO BID 90 days mirabegron ER (Myrbetriq) 25 mg PO DAILY multivitamin 1 tab PO DAILY nystatin (Nyamyc) 1 appl See Protocol topical TID omeprazole 40 mg PO DAILY@0630 rivaroxaban 20 mg PO DAILY@1700 [rollator walker with seat and brakes As directed] rosuvastatin 20 mg PO BEDTIME HPI SWV G0439 HPI Details Chief Complaint The patient presents for a Medicare annual visit and regular follow-up Fall: - Occurred from June 24 to June 29. - No repeated falls mentioned, only a on e-time occurrence. - While standing and talking on the phon e, felt unwell and subsequently fell. - Reported weakness in the legs, which p revented her from getting up. - Patient believes the fall was due to s tanding for too long, leading to dizziness. - No history of a stroke associated with the fall. Lymphedema: - Previously discussed in July; appeared worse at the time of this visit. - referral was placed to lymphedema clin ic patient have to make the appointment. Urinary Incontinence: - Patient reports total incontinence and visits the bathroom three times at night. - Discontinued use of Mirabigron due to insurance not covering it and possible interference with other medications. - Patient indicated attempts to self-tra in for improved continence. Anemia: - Slight anemia with hemoglobin at 11.4 recorded in labs done in June. - Patient had labs in August with stable k idney functions. Mammogram: - Mammogram originally scheduled was can celed by the patient and not yet performed. Medical History: - Lymphedema - Slight anemia - Total urinary incontinence Medications: - Citalopram 40 mg for depression - Digoxin prescribed by cardiology - Furosemide prescribed by cardiology, c urrently not taken due to frequent urination - Magnesium - Metoprolol - Omeprazole - Blood thinner: Xarelto - Rosuvastatin 20 mg Social History: - Patient is moving from her home to a [facility], citing high living expenses and landscaping costs. - Currently lives independently and channing arteaga. - Reports functional and capable of self -care. - Desires a device that alerts others in case of a fall, for added safety. Problem List - Fall this may - Lymphedema - Total urinary incontinence - Slight anemia - depression - asthma COPD overlap syndrome treated b y Dr. Hernandez - established with Cardiology - long-term use of blood thinners Patient Instructions - Restart furosemide to manage leg swell ing. - Contact insurance regarding obtaining a personal alert system. - Schedule and complete the overdue mamm ogram. - Consult with lymphedema clinic for fur ther management. - Consider coordination of healthcare pr oxy documentation with healthcare proxy. - Ensure vaccinations are up to date, in cluding flu vaccine if not already received. - continue medications Follow-up six-month Review of Systems - General: No fever no chills - Neurological: No headaches no dizziness - Ear nose throat: No sore throat no hearing difficulty no ear pain - Cardiovascular: , no chest pain, no palpitations - Gastrointestinal: No nausea vomiting or diarrhea Physical Exam General: No acute distress HEENT: No acute findings Neck: Supple Respiratory system: Able to talk in full sentences, no audible wheeze Cardiovascular: S1-S2 Gastrointestinal: No pain Extremities: Lymphedema noted bilateral SMALL STOCK FACER: Alert awake oriented x3 motor intact, gait stable but have difficulty rising from chair without holding on Skin: Normal turgor HPI Comments History of Present Illness Details AWV Medical/social history reviewed Past medical history reviewed Dunlo of care / care team list updated Surgical/ hospitalization history reviewed Current medications including OTC and supplements reviewed Family history reviewed Tobacco controlled form updated Alcohol use form updated Illicit drug use in social history reviewed Current diagnosis of depression ?screening updated Appropriate PHQ 2/PHQ-9 completed . Vital signs reviewed Alcohol tobacco drug use reviewed and discussed . MMSE completed . ? Fall risk: ?Assessed Fall history: ?yes [ May of this year ] Have you had any falls with injury in the past year?? Yes Have you had 2 or more falls in the past year?? No Fall risk assessment completed Home safety discussed with the patient Functional ability assessed and discussed and documented Activities of daily living reviewed and appropriate actions taken . HRA filled out by the MA and reviewed by provider and scanned . Appropriate written screening schedule established . Any health advise needed provided . Advance care planning discussed with the patient MOLST paperwork filled, patient says that she already have a healthcare proxy with her disability attorney she will provide us with a paper Examination IPPE/AWE: Balance intact Romberg intact Tandem walk failed walk-in turn failed rise from sit to stand intact . ?Hearing ?whisper test failed . Medication list reviewed, patient is stable on medications All other providers patient is seeing discussed and noted . [facility] Medical History Asthma Mild cognitive disorder GERD (gastroesophageal reflux disease) Bacteremia History of upper gastrointestinal bleeding (~08/2021) History of TIA (transient ischemic attack) (~2018) Osteopenia (~2012) Atrial fibrillation with RVR Bilateral pulmonary embolism (~06/2023) Moderate persistent asthma Surgical History History of basal cell carcinoma (BCC) excision History of esophagogastroduodenoscopy (EGD) History of colonoscopy Family History Father No problems noted. Mother Cerebral brain hemorrhage Social History Household Members: None Housing: Apartment Do you presently have visiting nurse or other home services: No Alcohol intake: current Alcohol intake frequency: does not drink Patient Tobacco Use Status: Never used Tobacco e-Cigarette/Vaping Use: Never Used Second Hand Smoke Exposure: Yes Advance Directives Date on File: 09/15/21 service: No Current occupational status: retired Gender identity: Female Cognitive needs: No Hearing needs: No Vision needs: Yes Questionnaire Medicare Wellness Checkup What is your age?: 81 or older What gender do you identify with?: female During the past 4 weeks, how much have you been bothered by emotional problems such as feeling anxious, depressed, irritable, sad or downhearted, and blue?: quite a bit During the past 4 weeks, has your physical & emotional health limited your social activities with family, friends, neighbors, or groups?: moderately During the past 4 weeks, how much bodily pain have you generally had?: mild pain During the past 4 weeks, was someone available to help you if you needed & wanted help?: no, not at all During the past 4 weeks, what was the hardest physical activity you could do for at least 2 minutes?: light Can you get to places out of walking distance without help? (For eg., can you travel alone on buses, taxis or drive your car?): Yes Can you go shopping for groceries or clothes without someone's help?: Yes Can you prepare your own meals?: Yes Can you do your housework without help?: Yes Because of any health problems, do you need the help of another person with your personal care needs such as eating, bathing, dressing or getting around the house?: No Can you handle your own money without help?: Yes During the past 4 weeks, how would you rate your health in general?: good During the past 4 weeks how have things been going for you?: good & bad parts about equal Are you having difficulties driving your car?: no Do you always fasten your seat belt when you are in a car?: yes, usually During past 4 weeks, have you been bothered by the following: never: Sexual problems? and Problems using the telephone?, seldom: Falling or dizzy when standing up and Teeth or denture problems? and sometimes: Trouble eating well? and Tiredness or fatigue? Have you fallen 2 or more times in the past year?: Yes Are you afraid of falling?: No Are you a smoker?: no During the past 4 weeks, how many drinks of wine, beer, or other alcoholic beverages did you have?: 2-5 drinks per week Do you exercise for about 20 minutes 3 or more times a week?: yes, some of the time Have you been given information to help with the following?: no: Hazards in your house that might hurt you? and no: Keeping track of your medications? How often do you have trouble taking medicines the way you have been told to take them?: sometimes I take medicine as prescribed How confident are you that you can control & manage most of your health problems?: very confident What is your race?: White Mini Mental State Exam (MMSE) Orientation What is the (year) (season) (date) (day) (month)?: year, season, date, day and month Where are we (state) (county) (town or city) (hospital) (floor)?: state, county, town or city, hospital/clinic and floor Score Score: 10 Activity of Daily Living Bathing - sponge bath, tub bath or shower: receives no assistance (gets in/out by self, if usual bathing means Dressing - getting clothes from closets & drawers, including inner/outer garments & fasteners.: gets clothes & gets completely dressed without help Toileting - going to the 'toilet room' for urine/bowel elimination & cleaning self/arranging clothes: goes to toilet room, cleans self, arranges clothes w ithout help Transfer: moves in & out of bed and chair without help (may use support object) Continence: controls urination/bowel movements completely by self Feeding: feeds self without help Total Score: 0 Information obtained from: patient Using telephone: independent Traveling: independent Shopping: independent Preparing meals: independent Housework: independent Taking medicine: independent Managing money: independent PHQ-9 Over the last 2 weeks, how often have you been bothered by any of the following problems? 1. Little interest or pleasure in doing things: several days 2. Feeling down, depressed, or hopeless: several days 3. Trouble falling or staying asleep, or sleeping too much: several days 4. Feeling tired or having little energy: several days 5. Poor appetite or overeating: several days 6. Feeling bad about yourself - or that you are a failure or have let yourself or your family down: not at all 7. Trouble concentrating on things, such as reading the newspaper or watching television: not at all 8. Moving or speaking so slowly that other people could have noticed. Or the opposite - being so fidgety or restless that you have been moving around a lot more than usual: not at all 9. Thoughts that you would be better off or of hurting yourself in some way: not at all Total score: 5 Depression Screening Interpretation: Negative Depression Screening Done: Yes 60504 - PHQ-9 Billing: Yes Source: Developed by Drs. Aries Romero, Kecia Pedraza, Eliezer Hu and colleagues, with an educational tiana from [id number]. Physical Exam Vital Signs: Last Vital Signs Temp 97.8 F 10/18/24 11:45 Pulse 81 10/18/24 11:45 Resp 20 10/18/24 11:45 BP 118/76 10/18/24 11:45 Pulse Ox 98 10/18/24 11:45 Oxygen Delivery Method Room Air 10/18/24 11:45 BMI result Body Mass Index 30.5 Assessment & Plan Assessment & Plan (1) Medicare annual wellness visit, subsequent: Code(s): Z00.00 - Encounter for general adult medical examination without abnormal findings (2) Lymphedema: Code(s): I89.0 - Lymphedema, not elsewhere classified (3) Lipid disorder: Code(s): E78.9 - Disorder of lipoprotein metabolism, unspecified (4) Atrial fibrillation: Code(s): I48.91 - Unspecified atrial fibrillation Qualifiers: Atrial fibrillation type: permanent Qualified Code(s): I48.21 - Permanent atrial fibrillation (5) Moderate persistent asthma: Code(s): J45.40 - Moderate persistent asthma, uncomplicated Qualifiers: Asthma complication type: uncomplicated Qualified Code(s): J45.40 - Moderate persistent asthma, uncomplicated (6) Depression with anxiety: Code(s): F41.8 - Other specified anxiety disorders (7) Mild cognitive disorder: Code(s): F09 - Unspecified mental disorder due to known physiological condition (8) Chronic GERD: Code(s): K21.9 - Gastro-esophageal reflux disease without esophagitis (9) Environmental allergies: Code(s): Z91.09 - Other allergy status, other than to drugs and biological substances (10) Compulsive buying: Code(s): F42.8 - Other obsessive-compulsive disorder (11) Urine incontinence: Code(s): R32 - Unspecified urinary incontinence Qualifiers: Urinary Incontinence type: continuous leakage Qualified Code(s): N39.45 - Continuous leakage Plan Chief Complaint The patient presents for a Medicare annual visit and regular follow-up Fall: - Occurred from June 24 to June 29. - No repeated falls mentioned, only a one-time occurrence. - While standing and talking on the phone, felt unwell and subsequently fell. - Reported weakness in the legs, which prevented her from getting up. - Patient believes the fall was due to standing for too long, leading to dizziness. - No history of a stroke associated with the fall. Lymphedema: - Previously discussed in July; appeared worse at the time of this visit. - referral was placed to lymphedema clinic patient have to make the appointment. Urinary Incontinence: - Patient reports total incontinence and visits the bathroom three times at night. - Discontinued use of Mirabigron due to insurance not covering it and possible interference with other medications. - Patient indicated attempts to self-train for improved continence. Anemia: - Slight anemia with hemoglobin at 11.4 recorded in labs done in June. - Patient had labs in August with stable kidney functions. Mammogram: - Mammogram originally scheduled was canceled by the patient and not yet performed. Medical History: - Lymphedema - Slight anemia - Total urinary incontinence Medications: - Citalopram 40 mg for depression - Digoxin prescribed by cardiology - Furosemide prescribed by cardiology, currently not taken due to frequent urination - Magnesium - Metoprolol - Omeprazole - Blood thinner: Xarelto - Rosuvastatin 20 mg Social History: - Patient is moving from her home to a mobile home community, citing high living expenses and landscaping costs. - Currently lives independently and drives. - Reports functional and capable of self-care. - Desires a device that alerts others in case of a fall, for added safety. Problem List - Fall this may - Lymphedema - Total urinary incontinence - Slight anemia - depression - asthma COPD overlap syndrome treated by Dr. Hernandez - established with Cardiology - long-term use of blood thinners Patient Instructions - Restart furosemide to manage leg swelling. - Contact insurance regarding obtaining a personal alert system. - Schedule and complete the overdue mammogram. - Consult with lymphedema clinic for further management. - Consider coordination of healthcare proxy documentation with healthcare proxy. - Ensure vaccinations are up to date, including flu vaccine if not already received. - continue medications Follow-up six-month Orders: Orders MM tomosynthesis screening BI Today Z12.31 - Encounter for screening mammogram for malignant neoplasm of breast Medications: Discontinued mirabegron ER (Myrbetriq) Discontinued Reason: Doctor's Order 25 mg PO DAILY 30 tabs 0RF Quality Reporting (2019) Depression/Bipolar (159/160/161/177) PHQ-9: Total score: 5 Coding Level of Care Code Medicare Subsequent (G0439) Est Pt Level 4 (05522) Diagnoses Medicare annual wellness visit, subsequent Z00.00 Lymphedema I89.0 Lipid disorder E78.9 Permanent atrial fibrillation I48.21 Atrial fibrillation type: permanent Moderate persistent asthma without complication J45.40 Asthma complication type: uncomplicated Depression with anxiety F41.8 Mild cognitive disorder F09 Chronic GERD K21.9 Environmental allergies Z91.09 Compulsive buying F42.8 Continuous leakage of urine N39.45 Urinary Incontinence type: continuous leakage CPT Codes Advance Care Planning - Time spent: 1-15 minutes, on File ([id number]) Additional Codes PHQ-9 - 57866 - PHQ-9 Billing: Yes ([id number]) Advance Care Planning Forms completed: Health Care Proxy and MOLST Time spent: 1-15 minutes, on File Actual minutes spent: 10
--- OUTSIDE RECORDS SUMMARY | 2024-10-18 12:37 | XMS_ITS | Patient Health Record ---
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, bilateral legs (I70.203) Active confirmed Problem Lymphedema (02571725) Lymphedema (I89.0) Active confirmed Plan Of Treatment Pending Test Test Name Order Date X ray : Foot, left 2V 05/29/2011 X ray : Foot, right 2V 05/29/2011 *Liver Function Test (LFT) 09/27/2017 X ray : Foot, left 3V 06/05/2014 42960-VECOZPP NAIL, 6 OR MORE 05/22/2014 21777-XYEVJAU NAIL, 6 OR MORE 04/21/2013 12072-ZHUTKXZ NAIL, 6 OR MORE 07/28/2013 90713-WEEDYPR NAIL, 6 OR MORE 11/14/2013 26716-YCBBBYT NAIL, 6 OR MORE 02/09/2014 32921-IFYGAWI NAIL, 6 OR MORE 09/10/2014 64605-RJCQGHD NAIL, 6 OR MORE 11/30/2014 01416-ELOPXFB NAIL, 6 OR MORE 03/01/2015 19205-NGIYBRR NAIL, 6 OR MORE 05/24/2015 76645-LWFIITV NAIL, 6 OR MORE 08/16/2015 40098-XGLPSCK NAIL, 6 OR MORE 11/22/2015 14306-KZBNEMV NAIL, 6 OR MORE 02/11/2016 66669-VLKFZMZ NAIL, 6 OR MORE 04/05/2012 42561-ERRWXWW NAIL, 6 OR MORE 10/23/2011 55447-KMMBGNS NAIL, 6 OR MORE 01/05/2012 58302-AOBMEHJ NAIL, 6 OR MORE 07/12/2012 91256-VLJPZKX NAIL, 6 OR MORE 10/14/2012 25387-NJVRLGG NAIL, 6 OR MORE 01/13/2013 92945-QYYJENW NAIL, 6 OR MORE 08/14/2011 40877-HKECJOS NAIL, 6 OR MORE 05/29/2011 41354-IIXTXVB NAIL, 6 OR MORE 11/18/2010 28298-LSVOTBV NAIL, 6 OR MORE 09/27/2017 43733-ROOEPMF NAIL, 6 OR MORE 05/29/2016 66062-SEMAFCI NAIL, 6 OR MORE 08/28/2016 14957-EPIPPHP NAIL, 6 OR MORE 12/08/2016 91196-BGZVPNI NAIL, 6 OR MORE 03/09/2017 84898-UPHBDNT NAIL, 6 OR MORE 12/28/2017 68447-Trzj Destruction, -08/28/2016 38546-Yuxl Destruction, 03-0711/30/2014 15673-Dfnw Destruction, -11/18/2010 37663-Afnk Destruction, -14 08/14/2011 30517-Axdy Destruction, -14 02/27/2011 39472-Xwkt Destruction, 03-0705/29/2011 39691-Egix Destruction, 03-0701/13/2013 03266-Puvu Destruction, 03-0710/14/2012 07635-Dtzw Destruction, -07/12/2012 21972-Lirn Destruction, 03-0704/05/2012 50649-Lddl Destruction, -14 10/23/2011 40222-Gsxx Destruction, -14 01/05/2012 98669-Cxwn Destruction, 14 02/11/2016 45845-Ihzy Destruction, -11/22/2015 20545-Cikj Destruction, 03-0708/16/2015 15073-Kvac Destruction, 03-0705/24/2015 54796-Qekl Destruction, -03/01/2015 32593-Kgow Destruction, -07/03/2014 64965-Vqmy Destruction, 03-0709/10/2014 01384-Jlob Destruction, -14 07/28/2013 56689-Rrrr Destruction, 1-14 04/21/2013 26065-Ewux Destruction, 1-14 05/22/2014 50184-Hnmy Destruction, 1-14 11/14/2013 80138-Aacp Destruction, 1-14 02/09/2014 95676-Ydxvgrsa Plate 07/03/2014 75717-Ijalrxos Plate 05/22/2014 36024-Dpnzjcph Plate 04/21/2013 96942-Ivhqzhyw Plate 07/28/2013 98254-Ukwmudcj Plate 02/09/2014 92621-Dhzsadee Plate 11/14/2013 63729-Luntdtpy Plate 09/10/2014 27505-Fcyzkjdw Plate 11/30/2014 05853-Ucgynwct Plate 04/05/2012 12394-Zcsagyev Plate 10/23/2011 61490-Yuhdbaxo Plate 01/05/2012 31956-Uixoxlna Plate 07/12/2012 20793-Uaxzvitj Plate 01/13/2013 96651-Fttmapdc Plate 05/29/2011 96676-Gmpmqkqq Plate 02/27/2011 19240-Guyzdnkt Plate 11/18/2010 07618-JUBFRWJ SKIN/TISSUE 05/22/2014 93584-MMXMACG SKIN/TISSUE 06/05/2014 15362-ADYH SKIN LESIONS, OVER 4 03/01/19 16 75218-WSRL SKIN LESIONS, OVER 4 05/24/19 16 03641-MDPC SKIN LESIONS, OVER 4 08/16/19 16 91616-VSAN SKIN LESIONS, OVER 4 11/22/19 16 54062-PNJR SKIN LESIONS, OVER 4 02/11/20 16 60779-NZBJ SKIN LESIONS, OVER 4 09/28/19 18 21328-WFXH SKIN LESIONS, OVER 4 12/29/19 18 03633-EPVO SKIN LESIONS, OVER 4 12/09/19 17 33276-BZJY SKIN LESIONS, OVER 4 05/30/19 17 82512-RBKS SKIN LESIONS, OVER 4 08/29/19 17 34900-GUIJ SKIN LESIONS, OVER 4 06/16/19 18 35199-AFIN SKIN LESIONS, OVER 4 03/09/19 18 86918-IUKP SKIN LESIONS, OVER 4 03/29/19 19 07684-POCP SKIN LESIONS, OVER 4 07/09/19 19 59821-HPXP SKIN LESIONS, OVER 4 10/08/19 19 60462-ULCI SKIN LESIONS, OVER 4 01/07/20 19 97956-YSBM SKIN LESIONS, OVER 4 04/07/19 20 49435-SZPC SKIN LESIONS, OVER 4 06/30/19 20 72830-YAWE SKIN LESIONS, OVER 4 09/29/19 20 76847-ZPFI SKIN LESIONS, OVER 4 12/29/19 20 25960-YOWM SKIN LESIONS, OVER 4 04/09/19 21 02619-MZIZ SKIN LESIONS, OVER 4 07/06/19 21 87970-OBFB SKIN LESIONS, OVER 4 10/05/19 21 98086-QAUQ SKIN LESIONS, OVER 4 01/04/20 21 74576-JRLA SKIN LESIONS, OVER 4 04/04/19 22 52367- Nail Unit Biopsy 06/15/2017 Insurance Providers Payer Name Payer Address Payer Phone Subscriber Number Group Number Insured Name Patient Relationship to Insured Coverage Start Date Coverage End Date Medicare [employer] [address] [place] [address] [id number] Madelyn Clark Self - patient is the insured Medical (General) History Medical History History ICD Code asthma chicken pox hypertension measles mumps mumps measles hypertension chicken pox asthma Cellulitis Diverticulitis Surgical History Surgery Date(Month/Year) oral surgery 11/05 skin cancer removal forehead 11/28/13 Dental Implant 05/08/15 Hospitalization History Reason Date(Month/[place] [facility] [place]09[place] [facility] [place] 07/2018 [facility] [place] Divert[place]itis 07/16/16-07/20/16 [facility] for Dental implant 05/08/15 MRI, TIA, MRA 08/06 oral surgery 11/05
--- OUTSIDE RECORDS SUMMARY | 2024-10-18 12:37 | XMS_ITS | Encounter Summary ---
Author Organization [facility] Address [address] [place] [address] Care Team Providers Care Hair Designer Name Role Phone Kallie Guerrero MD Primary Care Provider [phone] Encounter Details Date Type Department Care Team (Late st Contact Info) Description 07/08/2024 Lab Requisition [facility] - Main Lab [address] [facility] [place] [address] Bruce Mcgrath MD [address] [place] [address] Unspecified atrial fibrillation (CMS/HCC V24, CMS/HCC V28); [...] velcro compression garments has been send to [facility] follow up 05/03/2024 Patient has slight increase in size of both legs after interruption in therapy for more than 2 weeks. Patient has not received recommended compression garments yet 05/29/2024 therapist communicated with [facility] who reported that both her hybrid liners and velcro wraps have been delivered to patient's home . Patient reports that she only received liners .. Patient to follow up with [facility] documented as of this encounter Procedures Procedure [...] LAB CHEMISTRY METHOD 07/10/2024 12:08 PM EDT [facility] Potassium 4.1 3.5 - 5.5 mmol/L LAB CHEMISTRY METHOD 07/10/2024 12:08 PM [facility] Chloride 107 96 - 110 mmol/L LAB CHEMISTRY METHOD 07/10/2024 12:08 PM [facility] CO2 29 21 - 32 mmol/L LAB CHEMISTRY METHOD 07/10/2024 12:08 PM [facility] Anion Gap 7 3 - 11 LAB CHEMISTRY METHOD 07/10/2024 12:08 PM [facility] Glucose 81 70 - 100 mg/dL LAB CHEMISTRY METHOD 07/10/2024 12:08 PM [facility] BUN 16 5 - 25 mg/dL LAB CHEMISTRY METHOD 07/10/2024 12:08 PM [facility] Creatinine 0.54 0.50 - 1.10 mg/dL LAB CHEMISTRY METHOD 07/10/2024 12:08 PM [facility] eGFR 92 >=60 mL/min/1. 73m2 LAB CHEMISTRY METHOD 07/10/2024 12:08 PM [facility] Comment:Calculation based on the Chronic Kidney Disease Epidemiology Collaboration (CKD-EPI) equation refit without adjustment for race. BUN/Creatinine Ratio 29.6 LAB CHEMISTRY METHOD 07/10/2024 12:08 PM [facility] Calcium 8.9 8.5 - 10.5 mg/dL LAB CHEMISTRY METHOD 07/10/2024 12:08 PM [facility] Blood Venous blood specimen / Unknown Venipuncture / Unknown 07/10/2024 8:30 AM EDT 07/10/2024 10:28 AM EDT us Bruce Mcgrath MD LAB BLOOD ORDERABLES Final Result [facility] [address] [place] [address], [place] [phone] * (ABNORMAL) Complete blood count (07/10/2024 8:30 AM EDT) [facility] WBC 7.8 4.8 - 10.8 K/mcL LAB HEMETOLOGY METHOD 07/10/2024 11:12 AM [facility] RBC 4.00 3.80 - 4.80 M/mcL LAB HEMETOLOGY METHOD 07/10/2024 11:12 AM [facility] Hemoglobin 12.3 11.5 - 16.0 g/dL LAB HEMETOLOGY METHOD 07/10/2024 11:12 AM [facility] Hematocrit 39.7 35.0 - 47.0 % LAB HEMETOLOGY METHOD 07/10/2024 11:12 AM [facility] MCV 98.3(H) 79.0 - 98.0 FL LAB HEMETOLOGY METHOD 07/10/2024 11:12 AM [facility] MCH 30.4 27.0 - 32.0 pcg LAB HEMETOLOGY METHOD 07/10/2024 11:12 AM [facility] MCHC 31.0(L) 32.0 - 37.0 g/dL LAB HEMETOLOGY METHOD 07/10/2024 11:12 AM [facility] RDW 25.0(H) 11.0 - 15.0 % LAB HEMETOLOGY METHOD 07/10/2024 11:12 AM [facility] Platelets 389 130 - 400 K/mcL LAB HEMETOLOGY METHOD 07/10/2024 11:12 AM [facility] MPV 10.8 7.0 - 11.0 FL LAB HEMETOLOGY METHOD 07/10/2024 11:12 AM [facility] NRBC 0.0 <1.0 % LAB HEMETOLOGY METHOD 07/10/2024 11:12 AM [facility] NRBC Absolute 0.00 <0.10 K/mcL LAB HEMETOLOGY METHOD 07/10/2024 11:12 AM EDT [facility] Blood Venous blood specimen / Unknown Venipuncture / Unknown 07/10/2024 8:30 AM EDT 07/10/2024 10:28 AM EDT us Bruce Mcgrath MD LAB BLOOD ORDERABLES Final Result [facility] [address] [place] [address], documented in this encounter Visit Diagnoses Diagnosis Unspecified atrial fibrillation (CMS/HCC V24, CMS/[facility] V28) Sepsis, unspecified organism (CMS/HCC V24, CMS/[facility] V28) Bacteremia documented in this encounter Care Teams Hair Designer Relationship Specialty Start Date End Date Kallie Guerrero MD [address] [place] [address] PCP - General Internal Medicine 12/23/23 documented as of this encounter
--- OUTSIDE RECORDS SUMMARY | 2024-10-18 12:37 | XMS_ITS | Patient Health Record ---
Author Organization [facility] Address [address] [place] [address] Care Team Providers Care Kettle Tender Name Role Phone Cesar ENGLISH, Asma Primary Care Provider Aries Rose [phone] Allergies Allergen (clinical drug ingredient) Drug/Non Drug Allergy documented on EMR Reaction Allergy Type Onset Date Status penicillamine Penicillamine Unknown Drug Allergy Active amoxicillin Amoxicillin Unknown Drug Allergy Act teena Results Component Value Reference Range Notes MAMMOGRAM DIGITAL BILATERAL SCREEN Reviewed date:12/17/2023 04:04:32 PM Interpretation:Normal Performing Lab: Notes/Report: Normal Reason For Referral No Information Medications Medication SIG (Take, Route, Frequency, Duration) Notes Start Date End Date Status Rosuvastatin Calcium 20 MG TAKE 1 TABLET BY MOUTH EVERY DAY Oral for 90 Active Xarelto 20 MG 1 tablet with food Orally Once a day for 30 day(s) Active Omeprazole 40 MG TAKE 1 CAPSULE BY [facility] DAILY EVERY MORNING for 90 Active Flovent HFA 110 MCG/ACT 1 puff Inhalatio n Twice a day Active Lialda 1.2 GM 4 Orally Once a day for 30 day(s) 04/19/2019 Not-Taking Albuterol Sulfate HFA 108 (90 Base) MCG/ACT 2 puffs as needed Inhalation every 6 hrs Active Magnesium Active Citalopram Hydrobromide 20 MG TAKE 1 TABLET EVERY DAY Oral for 90 Active Metoprolol Succinate ER 50 MG TAKE 1 TABLET BY MOUTH DAILY Oral for 90 Active Donepezil HCl 10 MG TAKE 1 TABLET BY KISHOR TH AT BEDTIME Oral for 90 Active Furosemide 20 MG TAKE 1 TABLET BY KISHOR TH EVERY DAY IN THE MORNING Oral for 7 Active Celecoxib 200 MG TAKE 1 CAPSULE EVERY DAY Oral for 90 Active Claritin 10 MG 1 tablet Orally Once a day for 30 day(s) Active Multivitamin Adult - as directed Orally once a day Active Budesonide 3 MG 1 Orally Once a day 02/14/2019 Active Gemfibrozil 600 MG 1 tablet 30 minutes before morning and evening meals Orally onace daily Active Immunizations Vaccine Route Administration Date Status Comme nts Influenza Unknown 11/22/2018 Administered Influenza Unknown 12/07/2018 Administered Influenza Unknown 11/22/2018 Administered Influenza Unknown 2019 Administered Influenza Unknown 12/04/2021 Administered Influenza Unknown 12/03/2021 Administered Pneumococcal Unknown 11/24/2023 Administered Influenza Unknown 12/08/2023 Administered Social History Tobacco Use: Social History Observation [...] Negative Section Notes: Nonsmoker; no sig alcohol Nonsmoker; no sig alcohol Nonsmoker; no sig alcohol Nonsmoker; no sig alcohol Nonsmoker; no sig alcohol Nonsmoker; no sig alcohol Nonsmoker; no sig alcohol Nonsmoker; no sig alcohol Nonsmoker; no sig alcohol Problems Problem Type SNOMED Code ICD Code Onset Dates Problem Status W/U Status Risk Notes Problem 180756939 Encounter for screening for malignant neoplasm of colon (Z12.11) Active confirmed Problem Diarrhea (39288622) Diarrhea (R19.7) Active confirmed Problem Iron deficiency anemia (48430938) Iron deficiency anemia (D50.9) Active confirmed Problem Gastrointestinal hemorrhage (12062989) UGI bleed (K92.2) Active confirmed Problem Gastroesophageal reflux disease (874911759) GERD (gastroesophag eal reflux disease) (K21.9) Active confirmed Problem 93968557 Diarrhea, unspecified type (R19.7) Active confirmed Problem 51254052 Collagenous colitis (K52.831) Active confirmed Problem Gastric ulcer (068965344) Gastric ulcer (K25.9) Active confirmed Problem History of gastric ulcer (343217190) History of gastric ulcer (Z87.19) Active confirmed Problem Gastroesophageal reflux disease (disorder) (372019431) Chronic GERD (K21.9) Active confirmed Vital Signs Temperature 98.4 degrees Fahrenheit 06/07/2024 Blood pressure diastolic 01 mm Hg 06/07/2024 Height 67 in 06/07/2024 Blood pressure systolic 001 mm Hg 06/07/2024 Weight 208 lbs 06/07/2024 BMI 32.57 kg/m2 06/07/2024 Procedures Procedure Date Ordered Date Performed Result Body Sit e UPPER GI ENDOSCOPY 06/07/2024 N/A COLONOSCOPY 06/07/2024 N/A Encounters Encounter Location Date Provider Diagnosis [facility] [address] [place] [phone] 06/07/2024 Aries Hernández Iron deficiency anem ia D50.9 ; GERD (gastroesophageal reflux disease) K21.9 and History of gastric ulcer Z87.19 [facility] [address] [place] [phone] 12/17/2023 Aries Hernández Collagenous colitis K52.831 ; Gastric ulcer K25.9 and Chronic GERD K21.9 [facility] [address] [place] [phone] 12/09/2023 Aries Hernández [facility] [address] [place] [phone] 08/03/2024 Aries Hernández [facility] [address] [place] [phone] 08/04/2024 Aries Hernández [facility] [address] [place] [phone] 12/17/2023 Aries Hernández Assessments Encounter Date Diagnosis (ICD Code) Assessment Notes Treatment Notes Treatment Clinical Notes Section Notes 06/07/2024 Iron deficiency anemia (ICD-10 - D50.9) Start taking the Iron pills at least once a day, but take it twice a day if it doesn't bother your stomach with constipation 06/07/2024 GERD (gastroesophag eal reflux disease) (ICD-10 - K21.9) 12/17/2023 Collagenous colitis (ICD-10 - K52.831) Overall, Madelyn appears to be doing well from a GI standpoint. She is not having any new or worrisome GI complaints. She has had no recurrence of GI bleeding despite being on her chronic Xarelto, Celebrex, and occasional Aleve. I did advise her to avoid Aleve, all other NSAIDs, and aspirin products long-term. I did advise her to continue to use Celebrex as that has a safer risk profile from a GI bleed standpoint than the usual NSAIDs. I did advise her to use Tylenol as needed as well. I did advise to continue her on omeprazole long-term both in regard to the previous history of GI bleeding as well as for relief of her chronic gastroesophageal reflux symptoms. Her previous diagnosis of collagenous colitis remains asymptomatic on no specific treatment at this time. I did advise her to certainly observe this and to let me know if diarrhea becomes a problem again in the future. At this point, since he is doing well from a GI standpoint, I advised B that she can see me on a p.r.n. basis. I did advise her to certainly call if she develops any recurrent symptoms of GI bleeding or significant diarrhea, or if she has any other problems or questions I can be of assistance with in the future. Madelyn was comfortable with this plan. Thank you again for allowing me to participate in Madelyn's care. I shall continue to keep you advised of her progress. 12/17/2023 Gastric ulcer (ICD-10 - K25.9) Overall, Madelyn appears to be doing well from a GI standpoint. She is not having any new or worrisome GI complaints. She has had no recurrence of GI bleeding despite being on her chronic Xarelto, Celebrex, and occasional Aleve. I did advise her to avoid Aleve, all other NSAIDs, and aspirin products long-term. I did advise her to continue to use Celebrex as that has a safer risk profile from a GI bleed standpoint than the usual NSAIDs. I did advise her to use Tylenol as needed as well. I did advise to continue her on omeprazole long-term both in regard to the previous history of GI bleeding as well as for relief of her chronic gastroesophageal reflux symptoms. Her previous diagnosis of collagenous colitis remains asymptomatic on no specific treatment at this time. I did advise her to certainly observe this and to let me know if diarrhea becomes a problem again in the future. At this point, since he is doing well from a GI standpoint, I advised B that she can see me on a p.r.n. basis. I did advise her to certainly call if she develops any recurrent symptoms of GI bleeding or significant diarrhea, or if she has any other problems or questions I can be of assistance with in the future. Madelyn was comfortable with this plan. Thank you again for allowing me to participate in Madelyn's care. I shall continue to keep you advised of her progress. 06/07/2024 History of gastric ulcer (ICD-10 - Z87.19) 12/17/2023 Chronic GERD (ICD-10 - K21.9) Overall, Madelyn appears to be doing well from a GI standpoint. She is not having any new or worrisome GI complaints. She has had no recurrence of GI bleeding despite being on her chronic Xarelto, Celebrex, and occasional Aleve. I did advise her to avoid Aleve, all other NSAIDs, and aspirin products long-term. I did advise her to continue to use Celebrex as that has a safer risk profile from a GI bleed standpoint than the usual NSAIDs. I did advise her to use Tylenol as needed as well. I did advise to continue her on omeprazole long-term both in regard to the previous history of GI bleeding as well as for relief of her chronic gastroesophageal reflux symptoms. Her previous diagnosis of collagenous colitis remains asymptomatic on no specific treatment at this time. I did advise her to certainly observe this and to let me know if diarrhea becomes a problem again in the future. At this point, since he is doing well from a GI standpoint, I advised B that she can see me on a p.r.n. basis. I did advise her to certainly call if she develops any recurrent symptoms of GI bleeding or significant diarrhea, or if she has any other problems or questions I can be of assistance with in the future. Madelyn was comfortable with this plan. Thank you again for allowing me to participate in Madelyn's care. I shall continue to keep you advised of her progress. 12/17/2023 Other Avoid Aspirin, Aleve and all other NSAIDs as they can cause GI bleeding Overall, Madelyn appears to be doing well from a GI standpoint. She is not having any new or worrisome GI complaints. She has had no recurrence of GI bleeding despite being on her chronic Xarelto, Celebrex, and occasional Aleve. I did advise her to avoid Aleve, all other NSAIDs, and aspirin products long-term. I did advise her to continue to use Celebrex as that has a safer risk profile from a GI bleed standpoint than the usual NSAIDs. I did advise her to use Tylenol as needed as well. I did advise to continue her on omeprazole long-term both in regard to the previous history of GI bleeding as well as for relief of her chronic gastroesophageal reflux symptoms. Her previous diagnosis of collagenous colitis remains asymptomatic on no specific treatment at this time. I did advise her to certainly observe this and to let me know if diarrhea becomes a problem again in the future. At this point, since he is doing well from a GI standpoint, I advised B that she can see me on a p.r.n. basis. I did advise her to certainly call if she develops any recurrent symptoms of GI bleeding or significant diarrhea, or if she has any other problems or questions I can be of assistance with in the future. Madelyn was comfortable with this plan. Thank you again for allowing me to participate in Madelyn's care. I shall continue to keep you advised of her progress. Plan Of Treatment Pending Test Test Name Order Date UPPER GI ENDOSCOPY 06/07/2024 COLONOSCOPY 06/07/2024 CBC w DIFF 06/07/2024 IRON PROFILE 06/07/2024 Ferritin 06/07/2024 Future Test Test Name Order Date COLONOSCOPY 01/17/2019 Insurance Providers Payer Name Payer Address Payer Phone Subscriber Number Group Number Insured Name Patient Relationship to Insured Coverage Start Date Coverage End Date MEDICARE OF [place] [address] [place] [address] [phone] [id number] MADELYN DREW Self - patient is the insured 7 [employer] CLAIMS [address] [place] [address] [phone] [id number] MADELYN DREW Self - patient is the insured Medical (General) History Medical History History ICD Code Asthma- stressed induced Hypertension Depression TIA Denies ID,DM,CVA,renal disease Neg colonoscopy in 2008 with me except f or a hyperplastic polyp Atrial fibrillation 2018- Diarrhea since 07/2018--neg c eliac disease labs, stool was positive for WBCs and negative for culture EGD in 02/[address] Olive inman--duodenal ulcer, erosive esophagitis, HH-gastric biopsies were negative for H. pylori and esophageal biopsies were negative for Best's esophagus Collagenous colitis diagnose d 01/2019 and started on Entocort with good response. She is currently on 3 mg daily as of the 08/17/19 OV. She could not start a mesalamine agent as she could not afford it. Therefore, she was continued on budesonide 3 mg either daily or every other day to try to maintain some remission of the colitis. Colonoscopy 01/2019 negative for polyps, but with the above collagenous colitis Upper GI bleed in August 22 relation to a small proximal gastric ulcer. This was treated endoscopically with some clips and sclerotherapy with epinephrine. She was also noted to have a large hiatal hernia but no esophagitis. Lymphedema of LE's Bilateral pulmonary emboli from a LE DVT in 06/2023 Surgical History Surgery Date(Month/Year) Hospitalization History Reason Date(Month/Year) blood clots in legs
--- OUTSIDE RECORDS SUMMARY | 2024-10-18 12:38 | XMS_ITS | Encounter Summary ---
Author Organization Address [address] [place] [address] Care Team Providers Care Job Specification Writer Name Role Phone Kallie Guerrero MD Primary Care Provider Encounter Details Date Type Department Care Team (Late st Contact Info) Description 07/05/2024 Lab Requisition [facility] - Main Lab [address] [facility] [place] [address] Bruce Mcgrath MD [address] [place] [address] Unspecified atrial fibrillation (CMS/HCC V24, CMS/HCC V28); [...] General No change(05/29 4:30 PM EDT) Sigrid Broussard, OTR/L Note: 1 : Patient [...] velcro compression garments has been send to [employer] follow up 05/03/2024 Patient has slight increase in size of both legs after interruption in therapy for more than 2 weeks. Patient has not received recommended compression garments yet 05/29/2024 therapist communicated with [employer] who reported that both her hybrid liners and velcro wraps have been delivered to patient's home . Patient reports that she only received liners .. Patient to follow up with [employer] documented as of this encounter Procedures Procedure Name Priority Date/Time Associated Diagnosis Comments COMPLETE BLOOD COUNT Routine 07/05/2024 5:29 AM EDT Unspecified atrial fibrillation (CMS/HCC V24, CMS/HCC V28) Sepsis, unspecified organism (CMS/HCC V24, CMS/HCC V28) Bacteremia DIGOXIN LEVEL Routine 07/05/2024 5:29 AM EDT Unspecified atrial fibrillation (CMS/HCC V24, CMS/HCC V28) Sepsis, unspecified organism (CMS/HCC V24, CMS/HCC V28) Bacteremia COMPREHENSIVE METABOLIC PANEL Routine 07/05/2024 5:29 AM EDT Unspecified atrial fibrillation (CMS/HCC V24, CMS/HCC V28) Sepsis, unspecified organism (CMS/HCC V24, CMS/HCC V28) Bacteremia documented in this encounter Results * Digoxin level (07/05/2024 5:29 AM EDT) Digoxin Lvl 0.5 0.5 - 2.0 ng/mL LAB CHEMISTRY METHOD 07/05/2024 9:42 AM [facility] Blood Venous blood specimen / Unknown Venipuncture / Unknown 07/05/2024 5:29 AM EDT 07/05/2024 8:39 AM EDT us Bruce Mcgrath MD LAB BLOOD ORDERABLES Final Result [facility] [address] [place] [address], [place] [phone] * (ABNORMAL) Comprehensive metabolic panel (07/05/2024 5:29 AM EDT) Pathologist [facility] [place] Sodium 143 133 - 145 mmol/L LAB CHEMISTRY METHOD 07/05/2024 9:42 AM [facility] Potassium 4.0 3.5 - 5.5 mmol/L LAB CHEMISTRY METHOD 07/05/2024 9:42 AM [facility] Chloride 107 96 - 110 mmol/L LAB CHEMISTRY METHOD 07/05/2024 9:42 AM [facility] CO2 29 21 - 32 mmol/L LAB CHEMISTRY METHOD 07/05/2024 9:42 AM [facility] Anion Gap 7 3 - 11 LAB CHEMISTRY METHOD 07/05/2024 9:42 AM [facility] Glucose 78 70 - 100 mg/dL LAB CHEMISTRY METHOD 07/05/2024 9:42 AM [facility] BUN 11 5 - 25 mg/dL LAB CHEMISTRY METHOD 07/05/2024 9:42 AM [facility] Creatinine 0.47(L) 0.50 - 1.10 mg/dL LAB CHEMISTRY METHOD 07/05/2024 9:42 AM [facility] eGFR 95 >=60 mL/min/1. 73m2 LAB CHEMISTRY METHOD 07/05/2024 9:42 AM [facility] Comment:Calculation based on the Chronic Kidney Disease Epidemiology Collaboration (CKD-EPI) equation refit without adjustment for race. BUN/Creatinine Ratio 23.4 LAB CHEMISTRY METHOD 07/05/2024 9:42 AM [facility] Calcium 8.3(L) 8.5 - 10.5 mg/dL LAB CHEMISTRY METHOD 07/05/2024 9:42 AM [facility] AST (SGOT) 134(H) 10 - 42 unit/L LAB CHEMISTRY METHOD 07/05/2024 9:42 AM [facility] ALT (SGPT) 70(H) 10 - 60 unit/L LAB CHEMISTRY METHOD 07/05/2024 9:42 AM [facility] Alkaline Phosphatase 105 42 - 121 unit/L LAB CHEMISTRY METHOD 07/05/2024 9:42 AM [facility] Total Protein 4.5(L) 6.0 - 8.0 g/dL LAB CHEMISTRY METHOD 07/05/2024 9:42 AM [facility] Albumin 2.2(L) 3.2 - 5.0 g/dL LAB CHEMISTRY METHOD 07/05/2024 9:42 AM [facility] Total Bilirubin 0.3 0.0 - 1.4 mg/dL LAB CHEMISTRY METHOD 07/05/2024 9:42 AM [facility] Blood Venous blood specimen / Unknown Venipuncture / Unknown 07/05/2024 5:29 AM EDT 07/05/2024 8:39 AM EDT us Bruce Mcgrath MD LAB BLOOD ORDERABLES Final Result [facility] [address] [place] [address], * (ABNORMAL) Complete blood count (07/05/2024 5:29 AM EDT) [facility] WBC 7.0 4.8 - 10.8 K/mcL LAB HEMETOLOGY METHOD 07/05/2024 9:01 AM [facility] RBC 3.80 3.80 - 4.80 M/mcL LAB HEMETOLOGY METHOD 07/05/2024 9:01 AM [facility] Hemoglobin 11.4(L) 11.5 - 16.0 g/dL LAB HEMETOLOGY METHOD 07/05/2024 9:01 AM [facility] Hematocrit 36.7 35.0 - 47.0 % LAB HEMETOLOGY METHOD 07/05/2024 9:01 AM [facility] MCV 96.1 79.0 - 98.0 FL LAB HEMETOLOGY METHOD 07/05/2024 9:01 AM [facility] MCH 29.8 27.0 - 32.0 pcg LAB HEMETOLOGY METHOD 07/05/2024 9:01 AM [facility] MCHC 31.1(L) 32.0 - 37.0 g/dL LAB HEMETOLOGY METHOD 07/05/2024 9:01 AM [facility] RDW LAB HEMETOLOGY METHOD 07/05/2024 9:01 AM [facility] Comment:Not Measured Platelets 273 130 - 400 K/mcL LAB HEMETOLOGY METHOD 07/05/2024 9:01 AM [facility] MPV 11.8(H) 7.0 - 11.0 FL LAB HEMETOLOGY METHOD 07/05/2024 9:01 AM [facility] NRBC 0.0 <1.0 % LAB HEMETOLOGY METHOD 07/05/2024 9:01 AM [facility] NRBC Absolute 0.00 <0.10 K/[facility] LAB HEMETOLOGY METHOD 07/05/2024 9:01 AM EDT [facility] Blood Venous blood specimen / Unknown Venipuncture / Unknown 07/05/2024 5:29 AM EDT 07/05/2024 8:39 AM EDT us Bruce Mcgrath MD LAB BLOOD ORDERABLES Final Result [facility] [address] [place] [address], documented in this encounter Visit Diagnoses Diagnosis Unspecified atrial fibrillation (CMS/HCC V24, CMS/[facility] V28) Sepsis, unspecified organism (CMS/HCC V24, CMS/[facility] V28) Bacteremia documented in this encounter Care Teams Job Specification Writer Relationship Specialty Start Date End Date Kallie Guerrero MD [address] [place] [address] PCP - General Internal Medicine 12/23/23 documented as of this encounter
--- OUTSIDE RECORDS SUMMARY | 2024-10-18 12:38 | XMS_ITS | Encounter Summary ---
Author Organization [facility] Address [address] [place] [address] Care Team Providers Care Ell Tutor Name Role Phone Kallie Guerrero MD Primary Care Provider [phone] Encounter Details Date Type Department Care Team (Late st Contact Info) Description 07/18/2024 Lab Requisition [facility] - Main Lab [address] [facility] [place] [address] Bruce Mcgrath MD [address] [place] [address] Unspecified atrial fibrillation (CMS/HCC V24, CMS/HCC V28); [...] velcro compression garments has been send to [email or web address] follow up 05/03/2024 Patient has slight increase in size of both legs after interruption in therapy for more than 2 weeks. Patient has not received recommended compression garments yet 05/29/2024 therapist communicated with [email or web address] who reported that both her hybrid liners and velcro wraps have been delivered to patient's home . Patient reports that she only received liners .. Patient to follow up with [email or web address] documented as of this encounter Procedures Procedure Name Priority Date/Time Associated Diagnosis Comments COMPLETE BLOOD COUNT Routine 07/19/2024 5:50 AM EDT Unspecified atrial fibrillation (CMS/HCC V24, CMS/HCC V28) Sepsis, unspecified organism (CMS/HCC V24, CMS/HCC V28) Bacteremia COMPREHENSIVE METABOLIC PANEL Routine 07/19/2024 5:50 AM EDT Unspecified atrial fibrillation (CMS/HCC V24, CMS/HCC V28) Sepsis, unspecified organism (CMS/HCC V24, CMS/HCC V28) Bacteremia documented in this encounter Results * (ABNORMAL) Comprehensive metabolic panel (07/19/2024 5:50 AM EDT) Pathologist [facility] Sodium 142 133 - 145 mmol/L LAB CHEMISTRY METHOD 07/19/2024 9:47 AM [facility] Potassium 4.2 3.5 - 5.5 mmol/L LAB CHEMISTRY METHOD 07/19/2024 9:47 AM [facility] Chloride 108 96 - 110 mmol/L LAB CHEMISTRY METHOD 07/19/2024 9:47 AM [facility] CO2 30 21 - 32 mmol/L LAB CHEMISTRY METHOD 07/19/2024 9:47 AM [facility] Anion Gap 4 3 - 11 LAB CHEMISTRY METHOD 07/19/2024 9:47 AM [facility] Glucose 92 70 - 100 mg/dL LAB CHEMISTRY METHOD 07/19/2024 9:47 AM [facility] BUN 20 5 - 25 mg/dL LAB CHEMISTRY METHOD 07/19/2024 9:47 AM [facility] Creatinine 0.62 0.50 - 1.10 mg/dL LAB CHEMISTRY METHOD 07/19/2024 9:47 AM [facility] eGFR 89 >=60 mL/min/1. 73m2 LAB CHEMISTRY METHOD 07/19/2024 9:47 AM [facility] Comment:Calculation based on the Chronic Kidney Disease Epidemiology Collaboration (CKD-EPI) equation refit without adjustment for race. BUN/Creatinine Ratio 32.3 LAB CHEMISTRY METHOD 07/19/2024 9:47 AM [facility] Calcium 9.0 8.5 - 10.5 mg/dL LAB CHEMISTRY METHOD 07/19/2024 9:47 AM [facility] AST (SGOT) 24 10 - 42 unit/L LAB CHEMISTRY METHOD 07/19/2024 9:47 AM [facility] Comment:Results verified by repeat testing ALT (SGPT) 25 10 - 60 unit/L LAB CHEMISTRY METHOD 07/19/2024 9:47 AM [facility] Alkaline Phosphatase 123(H) 42 - 121 unit/L LAB CHEMISTRY METHOD 07/19/2024 9:47 AM EDT [facility] Total Protein 5.4(L) 6.0 - 8.0 g/dL LAB CHEMISTRY METHOD 07/19/2024 9:47 AM EDT [facility] Albumin 3.0(L) 3.2 - 5.0 g/dL LAB CHEMISTRY METHOD 07/19/2024 9:47 AM EDT [facility] Total Bilirubin 0.3 0.0 - 1.4 mg/dL LAB CHEMISTRY METHOD 07/19/2024 9:47 AM EDT [facility] Blood Venous blood specimen / Unknown Venipuncture / Unknown 07/19/2024 5:50 AM EDT 07/19/2024 8:26 AM EDT Bruce Mcgrath MD LAB BLOOD ORDERABLES Final Result [facility] [address] [place] [address], * (ABNORMAL) Complete blood count (07/19/2024 5:50 AM EDT) WBC 6.8 4.8 - 10.8 K/mcL LAB HEMETOLOGY METHOD 07/19/2024 9:04 AM EDT [facility] RBC 3.90 3.80 - 4.80 M/mcL LAB HEMETOLOGY METHOD 07/19/2024 9:04 AM EDT [facility] Hemoglobin 12.4 11.5 - 16.0 g/dL LAB HEMETOLOGY METHOD 07/19/2024 9:04 AM EDT [facility] Hematocrit 39.5 35.0 - 47.0 % LAB HEMETOLOGY METHOD 07/19/2024 9:04 AM [facility] MCV 100.5(H) 79.0 - 98.0 FL LAB HEMETOLOGY METHOD 07/19/2024 9:04 AM EDT [facility] MCH 31.6 27.0 - 32.0 pcg LAB HEMETOLOGY METHOD 07/19/2024 9:04 AM EDT [facility] MCHC 31.4(L) 32.0 - 37.0 g/dL LAB HEMETOLOGY METHOD 07/19/2024 9:04 AM EDT [facility] RDW 22.9(H) 11.0 - 15.0 % LAB HEMETOLOGY METHOD 07/19/2024 9:04 AM EDT [facility] Platelets 224 130 - 400 K/mcL LAB HEMETOLOGY METHOD 07/19/2024 9:04 AM EDT [facility] MPV 11.0 7.0 - 11.0 FL LAB HEMETOLOGY METHOD 07/19/2024 9:04 AM EDT [facility] NRBC 0.0 <1.0 % LAB HEMETOLOGY METHOD 07/19/2024 9:04 AM EDT [facility] NRBC Absolute 0.00 <0.10 K/mcL LAB HEMETOLOGY METHOD 07/19/2024 9:04 AM EDT [facility] Blood Venous blood specimen / Unknown Venipuncture / Unknown 07/19/2024 5:50 AM EDT 07/19/2024 8:26 AM EDT us Bruce Mcgrath MD LAB BLOOD ORDERABLES Final Result [facility] [address] [place] [address], documented in this encounter Visit Diagnoses Diagnosis Unspecified atrial fibrillation (CMS/HCC V24, CMS/HCC V28) Sepsis, unspecified organism (CMS/HCC V24, CMS/HCC V28) Bacteremia documented in this encounter Care Teams Ell Tutor Relationship Specialty Start Date End Date Kallie Guerrero MD [address] [place] [address] PCP - General Internal Medicine 12/23/23 documented as of this encounter
--- OUTSIDE RECORDS SUMMARY | 2024-10-18 12:38 | XMS_ITS | Encounter Summary ---
Author Organization [facility] Address [address] [place] [address] Care Team Providers Care Document Review Specialist Name Role Phone Kallie Guerrero MD Primary Care Provider [phone] Encounter Details Date Type Department Care Team (Late st Contact Info) Description 07/17/2024 Lab Requisition [facility] - Main Lab [address] [facility] [place] [address] Bruce Mcgrath MD [address] [place] [address] Unspecified atrial fibrillation (CMS/HCC V24, CMS/HCC V28); [...] velcro compression garments has been send to [employer] follow up 05/03/2024 Patient has slight increase in size of both legs after interruption in therapy for more than 2 weeks. Patient has not received recommended compression garments yet 05/29/2024 therapist communicated with [employer] who reported that both her hybrid liners and velcro wraps have been delivered to patient's home . Patient reports that she only received liners .. Patient to follow up with [employer] documented as of this encounter Visit Diagnoses Diagnosis Unspecified atrial fibrillation (CMS/HCC V24, CMS/HCC V28) Sepsis, unspecified organism (CMS/HCC V24, CMS/HCC V28) Bacteremia documented in this encounter Care Teams Document Review Specialist Relationship Specialty Start Date End Date Kallie Guerrero MD [address] [place] [address] PCP - General Internal Medicine 12/23/23 documented as of this encounter
--- OUTSIDE RECORDS SUMMARY | 2024-10-18 12:38 | XMS_ITS | Encounter Summary ---
Author Organization [facility] Address [address] [place] [address] Care Team Providers Care Accounts Receivable Administrator Name Role Phone Kallie Guerrero MD Primary Care Provider [phone] Encounter Details Date Type Department Care Team (Late st Contact Info) Description 07/28/[address] [facility] - Main Lab [address] [facility] [place] [address] Bruce Mcgrath MD [address] [place] [address] Unspecified atrial fibrillation (CMS/HCC V24, CMS/HCC V28); [...] velcro compression garments has been send to [employer] follow up 05/03/2024 Patient has slight increase in size of both legs after interruption in therapy for more than 2 weeks. Patient has not received recommended compression garments yet 05/29/2024 therapist communicated with [employer] who reported that both her hybrid liners and velcro wraps have been delivered to patient's home . Patient reports that she only received liners .. Patient to follow up with [employer] documented as of this encounter Procedures Procedure Name Priority Date/Time Associated Diagnosis Comments COMPLETE BLOOD COUNT Routine 07/31/2024 9:00 AM EDT Unspecified atrial fibrillation (CMS/HCC V24, CMS/HCC V28) Sepsis, unspecified organism (CMS/HCC V24, CMS/HCC V28) Bacteremia BASIC METABOLIC PANEL Routine 07/31/2024 9:00 AM EDT Unspecified atrial fibrillation (CMS/HCC V24, CMS/HCC V28) Sepsis, unspecified organism (CMS/HCC V24, CMS/HCC V28) Bacteremia documented in this encounter Results * (ABNORMAL) Complete blood count (07/31/2024 9:00 AM EDT) WBC 8.4 4.8 - 10.8 K/mcL LAB HEMETOLOGY METHOD 07/31/2024 11:48 AM [facility] RBC 4.40 3.80 - 4.80 M/mcL LAB HEMETOLOGY METHOD 07/31/2024 11:48 AM [facility] Hemoglobin 14.1 11.5 - 16.0 g/dL LAB HEMETOLOGY METHOD 07/31/2024 11:48 AM [facility] Hematocrit 42.8 35.0 - 47.0 % LAB HEMETOLOGY METHOD 07/31/2024 11:48 AM [facility] MCV 96.8 79.0 - 98.0 FL LAB HEMETOLOGY METHOD 07/31/2024 11:48 AM [facility] MCH 31.9 27.0 - 32.0 pcg LAB HEMETOLOGY METHOD 07/31/2024 11:48 AM [facility] MCHC 32.9 32.0 - 37.0 g/dL LAB HEMETOLOGY METHOD 07/31/2024 11:48 AM [facility] RDW 19.5(H) 11.0 - 15.0 % LAB HEMETOLOGY METHOD 07/31/2024 11:48 AM [facility] Platelets 181 130 - 400 K/mcL LAB HEMETOLOGY METHOD 07/31/2024 11:48 AM [facility] MPV 11.4(H) 7.0 - 11.0 FL LAB HEMETOLOGY METHOD 07/31/2024 11:48 AM [facility] NRBC 0.2 <1.0 % LAB HEMETOLOGY METHOD 07/31/2024 11:48 AM [facility] NRBC Absolute 0.02 <0.10 K/mcL LAB HEMETOLOGY METHOD 07/31/2024 11:48 AM [facility] Blood Venous blood specimen / Unknown Venipuncture / Unknown 07/31/2024 9:00 AM EDT 07/31/2024 10:22 AM EDT Bruce Mcgrath MD LAB BLOOD ORDERABLES Final Result [facility] [address] [place] [address], [place] [phone] * (ABNORMAL) Basic metabolic panel (07/31/2024 9:00 AM EDT) Sodium 140 133 - 145 mmol/L LAB CHEMISTRY METHOD 07/31/2024 1:11 PM [facility] Potassium 4.6 3.5 - 5.5 mmol/L LAB CHEMISTRY METHOD 07/31/2024 1:11 PM [facility] Chloride 109 96 - 110 mmol/L LAB CHEMISTRY METHOD 07/31/2024 1:11 PM [facility] CO2 18(L) 21 - 32 mmol/L LAB CHEMISTRY METHOD 07/31/2024 1:11 PM [facility] Anion Gap 13(H) 3 - 11 LAB CHEMISTRY METHOD 07/31/2024 1:11 PM [facility] Glucose 91 70 - 100 mg/dL LAB CHEMISTRY METHOD 07/31/2024 1:11 PM [facility] BUN 19 5 - 25 mg/dL LAB CHEMISTRY METHOD 07/31/2024 1:11 PM [facility] Creatinine 0.68 0.50 - 1.10 mg/dL LAB CHEMISTRY METHOD 07/31/2024 1:11 PM [facility] eGFR 87 >=60 mL/min/1. 73m2 LAB CHEMISTRY METHOD 07/31/2024 1:11 PM [facility] Comment:Calculation based on the Chronic Kidney Disease Epidemiology Collaboration (CKD-EPI) equation refit without adjustment for race. BUN/Creatinine Ratio 27.9 LAB CHEMISTRY METHOD 07/31/2024 1:11 PM EDT [facility] Calcium 9.3 8.5 - 10.5 mg/dL LAB CHEMISTRY METHOD 07/31/2024 1:11 PM EDT [facility] Blood Venous blood specimen / Unknown Venipuncture / Unknown 07/31/2024 9:00 AM EDT 07/31/2024 10:22 AM EDT us Bruce Mcgrath MD LAB BLOOD ORDERABLES Final Result [facility] [address] [place] [address], documented in this encounter Visit Diagnoses Diagnosis Unspecified atrial fibrillation (CMS/HCC V24, [facility] V28) Sepsis, unspecified organism ([facility] V24, [facility] V28) Bacteremia documented in this encounter Care Teams Accounts Receivable Administrator Relationship Specialty Start Date End Date Kallie Guerrero MD [address] [place] [address] PCP - General Internal Medicine 12/23/23 documented as of this encounter
--- OUTSIDE RECORDS SUMMARY | 2024-10-18 12:38 | XMS_ITS | Encounter Summary ---
Author Organization [facility] Address [address] [place] [address] Care Team Providers Care [facility] Worker Name Role Phone Kallie Guerrero MD Primary Care Provider [phone] Encounter Details Date Type Department Care Team (Late st Contact Info) Description 07/21/2024 Lab Requisition [facility] - Main Lab [address] [facility] [place] [address] Bruce Mcgrath MD [address] [place] [address] Unspecified atrial fibrillation (CMS/HCC V24, CMS/HCC V28); [...] velcro compression garments has been send to [employer] follow up 05/03/2024 Patient has slight increase in size of both legs after interruption in therapy for more than 2 weeks. Patient has not received recommended compression garments yet 05/29/2024 therapist communicated with [employer] who reported that both her hybrid liners and velcro wraps have been delivered to patient's home . Patient reports that she only received liners .. Patient to follow up with [employer] documented as of this encounter Procedures Procedure Name Priority Date/Time Associated Diagnosis Comments COMPLETE BLOOD COUNT Routine 07/24/2024 9:03 AM EDT Unspecified atrial fibrillation (CMS/HCC V24, CMS/HCC V28) Sepsis, unspecified organism (CMS/HCC V24, CMS/HCC V28) Bacteremia BASIC METABOLIC PANEL Routine 07/24/2024 9:03 AM EDT Unspecified atrial fibrillation (CMS/HCC V24, CMS/HCC V28) Sepsis, unspecified organism (CMS/HCC V24, CMS/HCC V28) Bacteremia documented in this encounter Results * (ABNORMAL) Complete blood count (07/24/2024 9:03 AM EDT) WBC 6.6 4.8 - 10.8 K/mcL LAB HEMETOLOGY METHOD 07/24/2024 11:44 AM [facility] RBC 4.00 3.80 - 4.80 M/mcL LAB HEMETOLOGY METHOD 07/24/2024 11:44 AM [facility] Hemoglobin 12.9 11.5 - 16.0 g/dL LAB HEMETOLOGY METHOD 07/24/2024 11:44 AM [facility] Hematocrit 41.0 35.0 - 47.0 % LAB HEMETOLOGY METHOD 07/24/2024 11:44 AM [facility] MCV 101.7(H) 79.0 - 98.0 FL LAB HEMETOLOGY METHOD 07/24/2024 11:44 AM [facility] MCH 32.0 27.0 - 32.0 pcg LAB HEMETOLOGY METHOD 07/24/2024 11:44 AM [facility] MCHC 31.5(L) 32.0 - 37.0 g/dL LAB HEMETOLOGY METHOD 07/24/2024 11:44 AM [facility] RDW 21.7(H) 11.0 - 15.0 % LAB HEMETOLOGY METHOD 07/24/2024 11:44 AM [facility] Platelets 226 130 - 400 K/mcL LAB HEMETOLOGY METHOD 07/24/2024 11:44 AM [facility] MPV 11.2(H) 7.0 - 11.0 FL LAB HEMETOLOGY METHOD 07/24/2024 11:44 AM [facility] NRBC 0.0 <1.0 % LAB HEMETOLOGY METHOD 07/24/2024 11:44 AM [facility] NRBC Absolute 0.00 <0.10 K/mcL LAB HEMETOLOGY METHOD 07/24/2024 11:44 AM [facility] Blood Venous blood specimen / Unknown Venipuncture / Unknown 07/24/2024 9:03 AM EDT 07/24/2024 10:59 AM EDT Bruce Mcgrath MD LAB BLOOD ORDERABLES Final Result [facility] [address] [place] [address], [place] [phone] * (ABNORMAL) Basic metabolic panel (07/24/2024 9:03 AM EDT) Pathologist [facility] [place] Sodium 141 133 - 145 mmol/L LAB CHEMISTRY METHOD 07/24/2024 12:55 PM [facility] Potassium 4.6 3.5 - 5.5 mmol/L LAB CHEMISTRY METHOD 07/24/2024 12:55 PM [facility] Chloride 106 96 - 110 mmol/L LAB CHEMISTRY METHOD 07/24/2024 12:55 PM [facility] CO2 28 21 - 32 mmol/L LAB CHEMISTRY METHOD 07/24/2024 12:55 PM [facility] Anion Gap 7 3 - 11 LAB CHEMISTRY METHOD 07/24/2024 12:55 PM [facility] Glucose 120(H) 70 - 100 mg/dL LAB CHEMISTRY METHOD 07/24/2024 12:55 PM [facility] BUN 21 5 - 25 mg/dL LAB CHEMISTRY METHOD 07/24/2024 12:55 PM [facility] Creatinine 0.67 0.50 - 1.10 mg/dL LAB CHEMISTRY METHOD 07/24/2024 12:55 PM [facility] eGFR 87 >=60 mL/min/1. 73m2 LAB CHEMISTRY METHOD 07/24/2024 12:55 PM [facility] Comment:Calculation based on the Chronic Kidney Disease Epidemiology Collaboration (CKD-EPI) equation refit without adjustment for race. BUN/Creatinine Ratio 31.3 LAB CHEMISTRY METHOD 07/24/2024 12:55 PM EDT [facility] Calcium 9.3 8.5 - 10.5 mg/dL LAB CHEMISTRY METHOD 07/24/2024 12:55 PM EDT [facility] Blood Venous blood specimen / Unknown Venipuncture / Unknown 07/24/2024 9:03 AM EDT 07/24/2024 10:59 AM EDT us Bruce Mcgrath MD LAB BLOOD ORDERABLES Final Result [facility] [address] [place] [address], documented in this encounter Visit Diagnoses Diagnosis Unspecified atrial fibrillation (CMS/HCC V24, CMS/[facility] V28) Sepsis, unspecified organism (CMS/[facility] V24, [facility] V28) Bacteremia documented in this encounter Care Teams [facility] Worker Relationship Specialty Start Date End Date Kallie Guerrero MD [address] [place] [address] PCP - General Internal Medicine 12/23/23 documented as of this encounter
--- OUTSIDE RECORDS SUMMARY | 2024-10-18 12:38 | XMS_ITS | Clinical Summary ---
Author Organization [facility] Address [address] [place] [address] Phone Care Team Providers Care Supervisor Frame Sample And Pattern Name Role Phone Kallie Guerrero MD Primary Care Provider [phone] Active Problems Problem Noted Date Diagnosed Date Lymphatic edema 12/30/2023 Encounters Date Type Department Care Team Description 08/04/2024 Lab Requisition [facility] [address] [place] [phone] Yong Walter MD Unspecified atrial fibrillation ([facility]/HCC V24, CMS/HCC V28); Sepsis, unspecified organism ([facility]/HCC V24, CMS/HCC V28); Bacteremia 07/28/2024 Lab Requisition [facility] [address] [place] [phone] Bruce Mcgrath MD Unspecified atrial fibrillation ([facility]/HCC V24, CMS/HCC V28); Sepsis, unspecified organism ([facility]/HCC V24, CMS/HCC V28); Bacteremia 07/21/2024 Lab Requisition [facility] [address] [place] [phone] Bruce Mcgrath MD Unspecified atrial fibrillation (CMS/HCC V24, CMS/HCC V28); Sepsis, unspecified organism ([facility] V24, CMS/HCC V28); Bacteremia 07/18/2024 Lab Requisition [facility] [address] [place] [phone] Bruce Mcgrath MD Unspecified atrial fibrillation ([facility] V24, [facility] V28); Sepsis, unspecified organism ([facility] V24, [facility] V28); Bacteremia from Last 3 Months Social History Tobacco Use Types Packs/Day Years Used Date Smoking Tobacco: Never Assessed Comments Unknown Sex and Gender Information Value Date Recorded Sex Assigned at Not on file Legal Sex Female 11:53 PM EST Gender Identity Not on file Sexual Orientation Not on file Plan of Treatment Health Maintenance Due Date Last Done Comments DTaP,Tdap,and Td Vaccines (1 - Tdap) 1959 RSV Immunization Adult Patients (1 - 1-dose 75+ series) 2016 Cholesterol Screening (Lipid Panel) 01/25/2022 Medicare Annual Wellness Visit 01/25/2022 Osteoporosis Screening (Bone Density Screening) 01/25/2022 Social Influencers of Health Screening 01/25/2022 COVID-19 Vaccine ( season) 2023 03/24/2023, 12/06/2021, 12/16/2020, Additional history exists Depression Screening 02/23/2024 Influenza Vaccine (#1) 2024 , 12/23/2022, 01/12/2022, Additional history exists Falls Risk Assessment 12/29/2024 12/30/2023 Zoster Vaccines Completed 08/19/2021, 03/12/2021 Pneumococcal Vaccine: 50+ Years Completed 12/29/2023, 04/24/2015 HIB Vaccines Aged [...] patient's age to complete this topic Meningococcal B Vaccine Aged Out No l onger eligible based on patient's age to complete [...] goal here> General Improving( 4:29 PM EDT) Sigrid Broussard, OTR/L Note: STG's Patient reports [...] velcro compression garments has been send to [email or web address] follow up 05/03/2024 Patient has slight increase in size of both legs after interruption in therapy for more than 2 weeks. Patient has not received recommended compression garments yet 05/29/2024 therapist communicated with [email or web address] who reported that both her hybrid liners and velcro wraps have been delivered to patient's home . Patient reports that she only received liners .. Patient to follow up with [email or web address] Procedures Procedure Name Priority Date/Time Associated Diagnosis Comments COMPLETE BLOOD COUNT Routine 08/07/2024 8:46 AM EDT Unspecified atrial fibrillation (CMS/[facility] V24, CMS/[facility] V28) Sepsis, unspecified organism (CMS/HCC V24, CMS/HCC V28) Bacteremia BASIC METABOLIC PANEL Routine 08/07/2024 8:46 AM EDT Unspecified atrial fibrillation (CMS/HCC V24, CMS/HCC V28) Sepsis, unspecified organism (CMS/HCC V24, CMS/HCC V28) Bacteremia COMPLETE BLOOD COUNT Routine 07/31/2024 9:00 AM EDT Unspecified atrial fibrillation (CMS/HCC V24, CMS/HCC V28) Sepsis, unspecified organism (CMS/HCC V24, CMS/HCC V28) Bacteremia BASIC METABOLIC PANEL Routine 07/31/2024 9:00 AM EDT Unspecified atrial fibrillation (CMS/HCC V24, CMS/HCC V28) Sepsis, unspecified organism (CMS/HCC V24, CMS/HCC V28) Bacteremia COMPLETE BLOOD COUNT Routine 07/24/2024 9:03 AM [...] unspecified organism (CMS/HCC V24, CMS/HCC V28) Bacteremia COMPLETE BLOOD COUNT Routine 07/19/2024 5:50 AM EDT Unspecified atrial fibrillation (CMS/HCC V24, CMS/HCC V28) Sepsis, unspecified organism (CMS/HCC V24, CMS/HCC V28) Bacteremia from Last 3 Months Results * (ABNORMAL) Complete blood count (08/07/2024 8:46 AM EDT) Only the most recent of4 resultswithin the time period is included. WBC 6.8 4.8 - 10.8 K/mcL LAB HEMETOLOGY METHOD 08/07/2024 12:32 PM [facility] RBC 4.10 3.80 - 4.80 M/mcL LAB HEMETOLOGY METHOD [facility]/07[facility]24 [facility] Hemoglobin 13.1 11.5 - 16.0 g/dL LAB HEMETOLOGY METHOD 08/07/2024 12:32 PM [facility] LAB Hematocrit 40.6 35.0 - 47.0 % LAB HEMETOLOGY METHOD 08/07/2024 12:32 PM [facility] LAB MCV 99.5(H) 79.0 - 98.0 FL LAB HEMETOLOGY METHOD 08/07/2024 12:32 PM [facility] LAB MCH 32.1(H) 27.0 - 32.0 pcg LAB HEMETOLOGY METHOD 08/07/2024 12:32 PM [facility] LAB MCHC 32.3 32.0 - 37.0 g/dL LAB HEMETOLOGY METHOD 08/07/2024 12:32 PM [facility] LAB RDW 17.8(H) 11.0 - 15.0 % LAB HEMETOLOGY METHOD 08/07/2024 12:32 PM [facility] LAB Platelets 191 130 - 400 K/mcL LAB HEMETOLOGY METHOD 08/07/2024 12:32 PM [facility] LAB MPV 11.1(H) 7.0 - 11.0 FL LAB HEMETOLOGY METHOD 08/07/2024 12:32 PM [facility] LAB NRBC 0.0 <1.0 % LAB HEMETOLOGY METHOD 08/07/2024 12:32 PM [facility] LAB NRBC Absolute 0.00 <0.10 K/mcL LAB HEMETOLOGY METHOD 08/07/2024 12:32 PM [facility] LAB Blood Venous blood specimen / Unknown Venipuncture / Unknown 08/07/2024 8:46 AM EDT 08/07/2024 10:25 AM EDT us Yong Walter MD LAB BLOOD ORDERABLES Final R esult [facility] [address] [place] [address], [place] [phone] * (ABNORMAL) Basic metabolic panel (08/07/2024 8:46 AM EDT) Only the most recent of3 resultswithin the time period is included. Sodium 142 133 - 145 mmol/L LAB CHEMISTRY METHOD 08/07/2024 1:01 PM [facility] Potassium 4.0 3.5 - 5.5 mmol/L LAB CHEMISTRY METHOD 08/07/2024 1:01 PM [facility] Chloride 107 96 - 110 mmol/L LAB CHEMISTRY METHOD 08/07/2024 1:01 PM [facility] CO2 28 21 - 32 mmol/L LAB CHEMISTRY METHOD 08/07/2024 1:01 PM [facility] Anion Gap 7 3 - 11 LAB CHEMISTRY METHOD 08/07/2024 1:01 PM [facility] Glucose 123(H) 70 - 100 mg/dL LAB CHEMISTRY METHOD 08/07/2024 1:01 PM [facility] BUN 12 5 - 25 mg/dL LAB CHEMISTRY METHOD 08/07/2024 1:01 PM [facility] Creatinine 0.58 0.50 - 1.10 mg/dL LAB CHEMISTRY METHOD 08/07/2024 1:01 PM [facility] LAB eGFR 90 >=60 mL/min/1. 73m2 LAB CHEMISTRY METHOD 08/07/2024 1:01 PM T [facility] LAB Comment:Calculation based on the Chronic Kidney Disease Epidemiology Collaboration (CKD-EPI) equation refit without adjustment for race. BUN/Creatinine Ratio 20.7 LAB CHEMISTRY METHOD 08/07/2024 1:01 PM [facility] Calcium 8.9 8.5 - 10.5 mg/dL LAB CHEMISTRY METHOD 08/07/2024 1:01 PM T [facility] LAB Blood Venous blood specimen / Unknown Venipuncture / Unknown 08/07/2024 8:46 AM EDT 08/07/2024 10:25 AM EDT us Yong Walter MD LAB BLOOD ORDERABLES Final R esult [facility] [address] [place] [address], * (ABNORMAL) Comprehensive metabolic panel (07/19/2024 5:50 AM EDT) Sodium 142 133 - 145 mmol/L LAB CHEMISTRY METHOD 07/19/2024 9:47 AM [facility] Potassium 4.2 3.5 - 5.5 mmol/L LAB CHEMISTRY METHOD 07/19/2024 9:47 AM [facility] Chloride 108 96 - 110 mmol/L LAB CHEMISTRY METHOD 07/19/2024 9:47 AM [facility] CO2 30 21 - 32 mmol/L LAB CHEMISTRY METHOD 07/19/2024 9:47 AM [facility] Anion Gap 4 3 - 11 LAB CHEMISTRY METHOD 07/19/2024 9:47 AM [facility] Glucose 92 70 - 100 mg/dL LAB CHEMISTRY METHOD 07/19/2024 9:47 AM [facility] BUN 20 5 - 25 mg/dL LAB CHEMISTRY METHOD 07/19/2024 9:47 AM [facility] Creatinine 0.62 0.50 - 1.10 mg/dL LAB CHEMISTRY METHOD 07/19/2024 9:47 AM [facility] LAB eGFR 89 >=60 mL/min/1. 73m2 LAB CHEMISTRY METHOD 07/19/2024 9:47 AM [facility] Comment:Calculation based on the Chronic Kidney Disease Epidemiology Collaboration (CKD-EPI) equation refit without adjustment for race. BUN/Creatinine Ratio 32.3 LAB CHEMISTRY METHOD 07/19/2024 9:47 AM [facility] Calcium 9.0 8.5 - 10.5 mg/dL LAB CHEMISTRY METHOD 07/19/2024 9:47 AM [facility] AST (SGOT) 24 10 - 42 unit/L LAB CHEMISTRY METHOD 07/19/2024 9:47 AM [facility] LAB Comment:Results verified by repeat testing ALT (SGPT) 25 10 - 60 unit/L LAB CHEMISTRY METHOD 07/19/2024 9:47 AM [facility] Alkaline Phosphatase 123(H) 42 - 121 unit/L LAB CHEMISTRY METHOD 07/19/2024 9:47 AM [facility] Total Protein 5.4(L) 6.0 - 8.0 g/dL LAB CHEMISTRY METHOD 07/19/2024 9:47 AM [facility] Albumin 3.0(L) 3.2 - 5.0 g/dL LAB CHEMISTRY METHOD 07/19/2024 9:47 AM [facility] Total Bilirubin 0.3 0.0 - 1.4 mg/dL LAB CHEMISTRY METHOD 07/19/2024 9:47 AM [facility] Blood Venous blood specimen / Unknown Venipuncture / Unknown 07/19/2024 5:50 AM EDT 07/19/2024 8:26 AM EDT us Bruce Mcgrath MD LAB BLOOD ORDERABLES Final Result [facility] LAB [address] [place] [address], from Last 3 Months Insurance MEDICARE [facility] Member Subscriber Plan / Payer (Ef fective 2024-Present) Name:Madelyn Swanson Member ID:Not on file Relation to Subscriber:Self Name:Mcdonnell Cary Madelyn B Subscriber ID:Not on file Payer ID:[id number] Group ID:Not on file Type:Not on file Address: [address] [place] [address] [facility] Care Teams Supervisor Frame Sample And Pattern Relationship Specialty Start Date End Date Kallie Guerrero MD [address] [place] [address] PCP - General Internal Medicine 12/23/23
--- OUTSIDE RECORDS SUMMARY | 2024-10-18 12:38 | XMS_ITS | Encounter Summary ---
Author Organization [facility] Address [address] [place] [address] Care Team Providers Care Rod Puller And Coiler Name Role Phone Kallie Geurrero MD Primary Care Provider [phone] Encounter Details Date Type Department Care Team (Late st Contact Info) Description 08/04/2024 Lab Requisition [facility] Lab [address] [facility] [place] [address] Yong Walter MD [address] [place] [address] Unspecified atrial fibrillation (CMS/HCC V24, CMS/HCC V28); [...] velcro compression garments has been send to [employer] follow up 05/03/2024 Patient has slight increase in size of both legs after interruption in therapy for more than 2 weeks. Patient has not received recommended compression garments yet 05/29/2024 therapist communicated with [employer] who reported that both her hybrid liners and velcro wraps have been delivered to patient's home . Patient reports that she only received liners .. Patient to follow up with [employer] documented as of this encounter Procedures Procedure [...] encounter Results * (ABNORMAL) Complete blood count (08/07/2024 8:46 AM EDT) WBC 6.8 4.8 - 10.8 K/[facility] LAB HEMETOLOGY METHOD 08/07/2024 12:32 PM [facility] LAB RBC 4.10 3.80 - 4.80 M/mcL LAB HEMETOLOGY METHOD 08/07/2024 12:32 PM [facility] LAB Hemoglobin 13.1 11.5 - 16.0 g/dL LAB HEMETOLOGY METHOD 08/07/2024 12:32 PM [facility] LAB Hematocrit 40.6 35.0 - 47.0 % LAB HEMETOLOGY METHOD 08/07/2024 12:32 PM [facility] LAB MCV 99.5(H) 79.0 - 98.0 FL LAB HEMETOLOGY METHOD 08/07/2024 12:32 PM [facility] LAB MCH 32.1(H) 27.0 - 32.0 pcg LAB HEMETOLOGY METHOD 08/07/2024 12:32 PM [facility] LAB MCHC 32.3 32.0 - 37.0 g/dL LAB HEMETOLOGY METHOD 08/07/2024 12:32 PM [facility] LAB RDW 17.8(H) 11.0 - 15.0 % LAB HEMETOLOGY METHOD 08/07/2024 12:32 PM [facility] LAB Platelets 191 130 - 400 K/mcL LAB HEMETOLOGY METHOD 08/07/2024 12:32 PM [facility] LAB MPV 11.1(H) 7.0 - 11.0 FL LAB HEMETOLOGY METHOD 08/07/2024 12:32 PM [facility] LAB NRBC 0.0 <1.0 % LAB HEMETOLOGY METHOD 08/07/2024 12:32 PM [facility] LAB NRBC Absolute 0.00 <0.10 K/mcL LAB HEMETOLOGY METHOD 08/07/2024 12:32 PM [facility] Blood Venous blood specimen / Unknown Venipuncture / Unknown 08/07/2024 8:46 AM EDT 08/07/2024 10:25 AM EDT us Yong Walter MD LAB BLOOD ORDERABLES Final R esult [facility] [address] [place] [address], [place] [phone] * (ABNORMAL) Basic metabolic panel (08/07/2024 8:46 AM EDT) Sodium 142 133 - 145 mmol/L LAB CHEMISTRY METHOD 08/07/2024 1:01 PM [facility] Potassium 4.0 3.5 - 5.5 mmol/L LAB CHEMISTRY METHOD 08/07/2024 1:01 PM [facility] Chloride 107 96 - 110 mmol/L LAB CHEMISTRY METHOD 08/07/2024 1:01 PM [facility] CO2 28 21 - 32 mmol/L LAB CHEMISTRY METHOD 08/07/2024 1:01 PM [facility] Anion Gap 7 3 - 11 LAB CHEMISTRY METHOD 08/07/2024 1:01 PM [facility] Glucose 123(H) 70 - 100 mg/dL LAB CHEMISTRY METHOD 08/07/2024 1:01 PM [facility] BUN 12 5 - 25 mg/dL LAB CHEMISTRY METHOD 08/07/2024 1:01 PM [facility] Creatinine 0.58 0.50 - 1.10 mg/dL LAB CHEMISTRY METHOD 08/07/2024 1:01 PM [facility] LAB eGFR 90 >=60 mL/min/1. 73m2 LAB CHEMISTRY METHOD 08/07/2024 1:01 PM [facility] LAB Comment:Calculation based on the Chronic Kidney Disease Epidemiology Collaboration (CKD-EPI) equation refit without adjustment for race. BUN/Creatinine Ratio 20.7 LAB CHEMISTRY METHOD 08/07/2024 1:01 PM EDT [facility] Calcium 8.9 8.5 - 10.5 mg/dL LAB CHEMISTRY METHOD 08/07/2024 1:01 PM EDT [facility] Blood Venous blood specimen / Unknown Venipuncture / Unknown 08/07/2024 8:46 AM EDT 08/07/2024 10:25 AM EDT us Yong Walter MD LAB BLOOD ORDERABLES Final R esult [facility] [address] [place] [address], documented in this encounter Visit Diagnoses Diagnosis Unspecified atrial fibrillation (CMS/HCC V24, CMS/[facility] V28) Sepsis, unspecified organism (CMS/[facility] V24, [facility] V28) Bacteremia documented in this encounter Care Teams Rod Puller And Coiler Relationship Specialty Start Date End Date Kallie Guerrero MD [address] [place] [address] PCP - General Internal Medicine 12/23/23 documented as of this encounter
== END 2024-10-18 12:15 | disposition home or self-care (01) ==
LOC: HO.HMCC 11:39
PROVIDERS: PCP Internal Medicine; Visit Provider Internal Medicine
DX: Z00.00 Encounter for general adult medical examination without abnormal findings (principal); I48.21 Permanent atrial fibrillation; I89.0 Lymphedema, not elsewhere classified; E78.9 Disorder of lipoprotein metabolism, unspecified; J45.40 Moderate persistent asthma, uncomplicated; F41.8 Other specified anxiety disorders; F09 Unspecified mental disorder due to known physiological condition; K21.9 Gastro-esophageal reflux disease without esophagitis; Z91.09 Other allergy status, other than to drugs and biological substances; F42.8 Other obsessive-compulsive disorder; N39.45 Continuous leakage

== ENCOUNTER → 2024-10-18 11:37 | Outpatient (BNVA) | payer MEDICARE, SELFPAY | PROVIDERS: PCP Internal Medicine; Visit Provider Internal Medicine | DX: Z00.00 Encounter for general adult medical examination without abnormal findings (principal); I89.0 Lymphedema, not elsewhere classified; E78.9 Disorder of lipoprotein metabolism, unspecified; I48.21 Permanent atrial fibrillation; J45.40 Moderate persistent asthma, uncomplicated; F41.8 Other specified anxiety disorders; F09 Unspecified mental disorder due to known physiological condition; K21.9 Gastro-esophageal reflux disease without esophagitis; F42.8 Other obsessive-compulsive disorder; N39.45 Continuous leakage; Z91.09 Other allergy status, other than to drugs and biological substances | CPT/HCPCS: 96127; 99212 ==

== ENCOUNTER 2024-11-29 15:43 | Outpatient (AMB) | payer MEDICARE, SELFPAY ==
--- NOTE | 2024-11-29 15:57 | MHC.OFFVIS ---
Intake Visit Reasons: 6m [facility] Allergies pantoprazole Allergy (Intermediate, Verified 10/18/24 11:47) NAUSEA potassium Allergy (Intermediate, Verified 10/18/24 11:47) Itching doxycycline Allergy (Mild, Verified 10/18/24 11:47) Rash lorazepam Allergy (Unknown, Verified 10/18/24 11:47) unknown amoxicillin (AMOXICILLIN) Adverse Reaction (Intermediate, Verified 10/18/24 11:47) NAUSEA/VOMITING HPI Comments Details: 84 y/o woman with HTN, asthma, GERD, OA, and mild cogntive impairment. She is presenting with concerns about seizures and follow-up on severe past hospital symptoms. The patient was incapacitated for an extended period in June, leading to hospitalization for sepsis and dehydration following a five-day episode on her hallway floor. She experienced acute dizziness before collapsing. The patient has chronic lymphedema affecting her ambulatory ability and exacerbated by inactivity. She recalls past episodes similar to Transient Ischemic Attacks (TIAs) with memory and cognitive disturbances, consulted as a possibility of seizure activity during her recent hospital evaluations. Consideration for epileptic seizures has been raised, as she had moments of unresponsiveness without overt convulsions, warranting further investigation through EEG and neurological follow-up. [facility] Medical History (Updated 11/29/24 @ 16:04 by Misael Guerrero MD) Osteoarthritis Hypertension Migraine Encephalopathy Vivid dream Hallucinations Mild cognitive impairment Poor sleep hygiene Asthma Mild cognitive disorder GERD (gastroesophageal reflux disease) Bacteremia History of upper gastrointestinal bleeding (~08/2021) History of TIA (transient ischemic attack) (~2018) Osteopenia (~2012) Atrial fibrillation with RVR Bilateral pulmonary embolism (~06/2023) Moderate persistent asthma Surgical History History of basal cell carcinoma (BCC) excision History of esophagogastroduodenoscopy (EGD) History of colonoscopy Family History Father No problems noted. Mother Cerebral brain hemorrhage Social History Household Members: None Housing: Apartment Do you presently have visiting nurse or other home services: No Alcohol intake: current Alcohol intake frequency: does not drink Patient Tobacco Use Status: Never used Tobacco e-Cigarette/Vaping Use: Never Used Second Hand Smoke Exposure: Yes Advance Directives Date on File: 09/15/21 service: No Current occupational status: retired Gender identity: Female Cognitive needs: No Hearing needs: No Vision needs: Yes Review of Systems Const Details: - Neurology: Reports dizziness prior to collapse; possible seizure-like activity with non-convulsive unresponsiveness; history of TIAs. - Musculoskeletal: Reports issues due to lymphedema affecting ambulation. - Genitourinary: Reports being diagnosed with possible kidney disease during hospitalization. - Infectious Disease: Diagnosed with sepsis during hospitalization. - General: Reports dehydration during hospitalization. Physical Exam Neuro Other: Mental Status: Alert and oriented to person, place, and time. Normal attention. Normal spontaneous speech, fluency, and comprehension. Cranial Nerves: CN II: Visual shore full to confrontation, visual acuity intact. CN III, IV, : Pupils equal, round, reactive to light and accommodation. Extraocular movements are normal. CN V: Facial sensation is normal. CN VII: Facial movements symmetrical. CN VIII: Hearing intact to bedside conversation is normal. CN IX, X: Palate elevates symmetrically. CN XI: Shoulder shrug and head turn symmetrical. CN XII: Tongue midline without atrophy or fasciculations. Extrapyramidal: Full facial expressions and blinking. No rigidity. Movements are appropriate with no tremor or abnormality. Speech: Normal; no dysarthria or tremor. Assessment & Plan Assessment & Plan (1) Mild cognitive disorder: Comment: Routine EEG at off in Nov 2022: WNL Routine EEG at office in Feb 2020: [place] [facility] [place]: mild PT atrophy [place]CR [place] [facility] [place]. Code(s): F09 - Unspecified mental disorder due to known physiological condition Category: Medical (2) Migraine: Code(s): G43.909 - Migraine, unspecified, not intractable, without status migrainosus Category: Medical Qualifiers: Migraine type: migraine (< 15 days per month) without aura Status migrainosus presence: without status migrainosus Intractability: not intractable Qualified Code(s): G43.009 - Migraine without aura, not intractable, without status migrainosus (3) Complex partial seizure disorder: Code(s): G40.209 - Localization-related (focal) (partial) symptomatic epilepsy and epileptic syndromes with complex partial seizures, not intractable, without status epilepticus Category: Medical Plan Impression: a: Episode of passing out leading to multiple complications b: Mild cognitive impairment Rec: a: B12/folate/TSH/abeta amyloid test b: EEG Orders: Orders Thyroid Stimulating Hormone Today F09 - Unspecified mental disorder due to known physiological condition EEG awake and asleep Today G40.209 - Localization-related (focal) (partial) symptomatic epilepsy and epileptic syndromes with complex partial seizures, not intractable, without status epilepticus Vitamin B12 and Folate Today F09 - Unspecified mental disorder due to known physiological condition ABeta 42/40 p-tau 217 Eval Today G31.84 - Mild cognitive impairment of uncertain or unknown etiology Coding Level of Care Code Est Pt Level 4 (49697) Diagnoses Mild cognitive disorder F09 Migraine without aura and without status migrainosus, not intractable G43.009 Migraine type: migraine (< 15 days per month) without aura Status migrainosus presence: without status migrainosus Intractability: not intractable Complex partial seizure disorder G40.209
== END 2024-11-29 16:21 | disposition home or self-care (01) ==
LOC: HO.HSM 15:44
PROVIDERS: PCP Internal Medicine; Visit Provider Psychiatry & Neurology Neurology
DX: R41.89 Other symptoms and signs involving cognitive functions and awareness (principal); G43.009 Migraine without aura, not intractable, without status migrainosus; G40.209 Localization-related (focal) (partial) symptomatic epilepsy and epileptic syndromes with complex partial seizures, not intractable, without status epilepticus
CPT/HCPCS: 99214

== ENCOUNTER 2024-11-29 15:43 | Outpatient (REF) | payer MEDICARE, SELFPAY ==
[2024-11-29 19:36] LABS: Thyroid Stimulating Hormone 2.23 uIU/mL (0.32-4.0)
[2024-11-29 19:49] LABS: Folate > 20.0 ng/mL (> or = 4.0); Vitamin B12 832 pg/mL (200-900)
[2024-12-05 19:09] LABS: ABETA 42/40 Ratio 0.175 (> OR = 0.170); Alzeheimer's Interpretation Low Likelihood; Alzeimer's Disease Score 0.1153; Tau protein phosphorylated 217 0.20 pg/mL (< OR = 0.15)
== END 2024-11-29 15:44 | disposition home or self-care (01) ==
LOC: HO.LAB 15:43
PROVIDERS: PCP Internal Medicine; Visit Provider Psychiatry & Neurology Neurology
DX: G43.009 Migraine without aura, not intractable, without status migrainosus (principal); G40.209 Localization-related (focal) (partial) symptomatic epilepsy and epileptic syndromes with complex partial seizures, not intractable, without status epilepticus; G31.84 Mild cognitive impairment of uncertain or unknown etiology; F09 Unspecified mental disorder due to known physiological condition; Z79.899 Other long term (current) drug therapy
CPT/HCPCS: 36415; 82233; 82234; 82607; 82746; 84393; 84443; 99212

== ENCOUNTER 2024-12-05 15:10 | Outpatient (REF) | payer MEDICARE, SELFPAY ==
--- OUTSIDE RECORDS SUMMARY | 2023-12-09 06:40 | XMS_ITS ---
Author Organization [facility] Address [address] [place] [address] Care Team Providers Care Associate Software Engineer Name Role Phone Cesar ENGLISH, Asma Primary Care Provider Aries Rose [phone] Allergies Allergen (clinical drug ingredient) Drug/Non Drug [...] 12/09/2023 Encounters Encounter Location Date [facility] [address] [address] 12/09/2023 Aries Hernández Plan Of Treatment No Information Progress Notes * ANGI DREW BDOB: 1940 (84 yo F)Acc No.[id number]:12/09/2023 Progress Notes Patient: Hernesto HENDERSON ANGI GARCÍA B Provider: Suman Hernández MD :1940 A ge:83 Y S ex:Female Date:12/09/2023 Address:[address] [place], [place] [id number] Pcp:Kallie Guerrero MD Subjective: * Chief Complaints: * 1 . Patient presents today for colitis. * Medical History: A sthma- stressed induced, Hypertension, Depression, TIA, Denies [place],DM,CVA,renal disease, Neg colonoscopy in 2008 with me [...] Follow-up G iving encouragement to exercise, B TX management provided Y jenni. Urinary Incontinence: U [...] Date: Generated for Bryon marin/Leonides/Oswald on: 1 06:03 PM EDT
--- OUTSIDE RECORDS SUMMARY | 2024-06-07 11:20 | XMS_ITS ---
Author Organization [facility] Address [address] [place] [address] Care Team Providers Care Manager Facility Name Role Phone Cesar ENGLISH, Asma Primary Care Provider Aries Rose [phone] Allergies Allergen (clinical drug ingredient) Drug/Non Drug [...] Status Risk Notes Problem Iron deficiency anemia (85298681) Iron deficiency anemia (D50.9) Active confirmed Problem Gastroesophageal reflux disease (749709555) GERD (gastroesophag eal reflux disease) (K21.9) Active confirmed Problem History of gastric ulcer (248634026) History of gastric ulcer (Z87.19) Active confirmed [...] N/A Encounters Encounter Location Date Provider Diagnosis [facility] [address] [facility] [address] [place] [address] 06/07/2024 Aries Hernández Iron deficiency anemia D50.9 [...] ANGI DREW BDOB: 1940 (84 yo F)Acc No.[id number]:06/07/2024 Progress Notes Patient: Hernesto HENDERSON ANGI GARCÍA B Provider: Suman Hernández MD :1940 A ge:83 Y S ex:Female Date:06/07/2024 Address:[address] [place] [address] Pcp:Kallie Guerrero MD Subjective: * Chief Complaints: * * Medical History: A sthma- stressed induced, Hypertension, Depression, TIA, Denies [place],DM,CVA,renal disease, Neg colonoscopy in 2008 with me [...] Codes: 4 3235 UPPR GI ENDOSCOPY, DIAGNOSIS, 40938 DIAGNOSTIC COLONOSCOPY * Preventive Medicine: Counseling: C are goal follow-up plan: A robert Normal BMI Follow-up D ietary management education, guidance, and counseling, B [place] management provided Y es. Urinary Incontinence: U [...] 0 06/07/2024 Generated for Bryon marin/Leonides/Amanuelsmitting on: 06:03 PM EDT
--- OUTSIDE RECORDS SUMMARY | 2024-08-07 09:10 | XMS_ITS ---
Author Organization [facility] Address [address] [place] [phone] Care Team Providers Care Air Sealing Technician Name Role Phone Cesar ENGLISH, Kallie Primary Care Provider Aries Rose [phone] REASON FOR VISIT fe def anemia, melia,hx gastric ulcer Encounters Encounter Location Date Provider Diagnosis [facility] [place] [address] [place] [phone] 08/07/2024 Aries Hernández Plan Of Treatment No Information Progress Notes * ANGI DREW BDOB: 1940 (84 yo F)Acc No.[id number]:08/07/2024 EGD and COL/MAC Patient: Hernesto HENDERSON ANGI GARCÍA Provider: Suman Hernández MD :1940 A ge:83 Y S ex:Female Date:08/07/2024 Address:[address] [place], [place] [phone] Pcp:Kallie Guerrero MD Subjective: * Chief Complaints: [...] 08/07/2024 Generated for Bryon marin/Leonides/Amanuelsmitting on: 1 06:03 PM EDT
--- OUTSIDE RECORDS SUMMARY | 2024-12-05 18:04 | XMS_ITS | Encounter Summary ---
Author Organization [facility] Address [address] [place] [address] Care Team Providers Care Analysis Or Research Safety Inspector Name Role Phone Kallie Guerrero MD Primary Care Provider [phone] Encounter Details Date Type Department Care Team (Late st Contact Info) Description 08/04/2024 Lab Requisition [facility] - Main Lab [address] [facility] [place] [address] Yong Walter MD [address] [place] [address] Unspecified atrial fibrillation (CMS/HCC V24, CMS/HCC V28); [...] velcro compression garments has been send to [employer] follow up 05/03/2024 Patient has slight increase in size of both legs after interruption in therapy for more than 2 weeks. Patient has not received recommended compression garments yet 05/29/2024 therapist communicated with [employer] who reported that both her hybrid liners and velcro wraps have been delivered to patient's home . Patient reports that she only received liners .. Patient to follow up with [employer] documented as of this encounter Procedures Procedure [...] AM EDT) WBC 6.8 4.8 - 10.8 K/[facility] LAB HEMETOLOGY METHOD 08/07/2024 12:32 PM [facility] LAB RBC 4.10 3.80 - 4.80 M/mcL LAB HEMETOLOGY METHOD 08/07/2024 12:32 PM [facility] LAB Hemoglobin 13.1 11.5 - 16.0 g/dL LAB HEMETOLOGY METHOD 08/07/2024 12:32 PM [facility] LAB Hematocrit 40.6 35.0 - 47.0 % LAB HEMETOLOGY METHOD 08/07/2024 12:32 PM [facility] LAB MCV 99.5(H) 79.0 - 98.0 FL LAB HEMETOLOGY METHOD 08/07/2024 12:32 PM [facility] LAB MCH 32.1(H) 27.0 - 32.0 pcg LAB HEMETOLOGY METHOD 08/07/2024 12:32 PM [facility] LAB MCHC 32.3 32.0 - 37.0 g/dL LAB HEMETOLOGY METHOD 08/07/2024 12:32 PM [facility] LAB RDW 17.8(H) 11.0 - 15.0 % LAB HEMETOLOGY METHOD 08/07/2024 12:32 PM [facility] LAB Platelets 191 130 - 400 K/mcL LAB HEMETOLOGY METHOD 08/07/2024 12:32 PM [facility] LAB MPV 11.1(H) 7.0 - 11.0 FL LAB HEMETOLOGY METHOD 08/07/2024 12:32 PM [facility] LAB NRBC 0.0 <1.0 % LAB HEMETOLOGY METHOD 08/07/2024 12:32 PM [facility] LAB NRBC Absolute 0.00 <0.10 K/mcL LAB HEMETOLOGY METHOD 08/07/2024 12:32 PM [facility] LAB Blood Venous blood specimen / Unknown Venipuncture / Unknown 08/07/2024 8:46 AM EDT 08/07/2024 10:25 AM EDT us Yong Walter MD LAB BLOOD ORDERABLES Final R esult [facility] LAB [address] [place] [address], [place] [phone] * (ABNORMAL) Basic metabolic panel (08/07/2024 8:46 AM EDT) Sodium 142 133 - 145 mmol/L LAB CHEMISTRY METHOD 08/07/2024 1:01 PM [facility] LAB Potassium 4.0 3.5 - 5.5 mmol/L LAB CHEMISTRY METHOD 08/07/2024 1:01 PM [facility] LAB Chloride 107 96 - 110 mmol/L LAB CHEMISTRY METHOD 08/07/2024 1:01 PM [facility] LAB CO2 28 21 - 32 mmol/L LAB CHEMISTRY METHOD 08/07/2024 1:01 PM [facility] LAB Anion Gap 7 3 - 11 LAB CHEMISTRY METHOD 08/07/2024 1:01 PM [facility] LAB Glucose 123(H) 70 - 100 mg/dL LAB CHEMISTRY METHOD 08/07/2024 1:01 PM [facility] LAB BUN 12 5 - 25 mg/dL LAB CHEMISTRY METHOD 08/07/2024 1:01 PM [facility] LAB Creatinine 0.58 0.50 - 1.10 mg/dL LAB CHEMISTRY METHOD 08/07/2024 1:01 PM [facility] LAB eGFR 90 >=60 mL/min/1. 73m2 LAB CHEMISTRY METHOD 08/07/2024 1:01 PM [facility] LAB Comment:Calculation based on the Chronic Kidney Disease Epidemiology Collaboration (CKD-EPI) equation refit without adjustment for race. BUN/Creatinine Ratio 20.7 LAB CHEMISTRY METHOD 08/07/2024 1:01 PM EDT [facility] LAB Calcium 8.9 8.5 - 10.5 mg/dL LAB CHEMISTRY METHOD 08/07/2024 1:01 PM EDT [facility] LAB Blood Venous blood specimen / Unknown Venipuncture / Unknown 08/07/2024 8:46 AM EDT 08/07/2024 10:25 AM EDT us Yong Walter MD LAB BLOOD ORDERABLES Final R esult [facility] LAB [address] [place] [address], documented in this encounter Visit Diagnoses Diagnosis Unspecified atrial fibrillation (CMS/HCC V24, CMS/[facility] V28) Sepsis, unspecified organism (CMS/[facility] V24, [facility] V28) Bacteremia documented in this encounter Care Teams Analysis Or Research Safety Inspector Relationship Specialty Start Date End Date Kallie Guerrero MD [address] [place] [address] PCP - General Internal Medicine 12/23/23 documented as of this encounter
--- OUTSIDE RECORDS SUMMARY | 2024-12-05 18:04 | XMS_ITS | Encounter Summary ---
Author Organization [facility] Address [address] [place] [address] Care Team Providers Care Oxidation Operator Name Role Phone Kallie Guerrero MD Primary Care Provider [phone] Encounter Details Date Type Department Care Team (Late st Contact Info) Description 07/28/2024 Lab Requisition [facility] - Main Lab [address] [facility] [place] [address] Bruce Mcgrath MD [address] [place] [address] Unspecified atrial fibrillation (CMS/HCC V24, CMS/HCC V28); [...] velcro compression garments has been send to [employer] follow up 05/03/2024 Patient has slight increase in size of both legs after interruption in therapy for more than 2 weeks. Patient has not received recommended compression garments yet 05/29/2024 therapist communicated with [employer] who reported that both her hybrid liners and velcro wraps have been delivered to patient's home . Patient reports that she only received liners .. Patient to follow up with [employer] documented as of this encounter Procedures Procedure [...] K/mcL LAB HEMETOLOGY METHOD 07/31/2024 11:48 AM [facility] LAB RBC 4.40 3.80 - 4.80 M/mcL LAB HEMETOLOGY METHOD 07/31/2024 11:48 AM [facility] LAB Hemoglobin 14.1 11.5 - 16.0 g/dL LAB HEMETOLOGY METHOD 07/31/2024 11:48 AM [facility] LAB Hematocrit 42.8 35.0 - 47.0 % LAB HEMETOLOGY METHOD 07/31/2024 11:48 AM [facility] LAB MCV 96.8 79.0 - 98.0 FL LAB HEMETOLOGY METHOD 07/31/2024 11:48 AM [facility] LAB MCH 31.9 27.0 - 32.0 pcg LAB HEMETOLOGY METHOD 07/31/2024 11:48 AM [facility] LAB MCHC 32.9 32.0 - 37.0 g/dL LAB HEMETOLOGY METHOD 07/31/2024 11:48 AM [facility] LAB RDW 19.5(H) 11.0 - 15.0 % LAB HEMETOLOGY METHOD 07/31/2024 11:48 AM [facility] LAB Platelets 181 130 - 400 K/mcL LAB HEMETOLOGY METHOD 07/31/2024 11:48 AM [facility] LAB MPV 11.4(H) 7.0 - 11.0 FL LAB HEMETOLOGY METHOD 07/31/2024 11:48 AM [facility] LAB NRBC 0.2 <1.0 % LAB HEMETOLOGY METHOD 07/31/2024 11:48 AM [facility] LAB NRBC Absolute 0.02 <0.10 K/mcL LAB HEMETOLOGY METHOD 07/31/2024 11:48 AM [facility] Blood Venous blood specimen / Unknown Venipuncture / Unknown 07/31/2024 9:00 AM EDT 07/31/2024 10:22 AM EDT Bruce Mcgrath MD LAB BLOOD ORDERABLES Final Result [facility] [address] [place] [address], [place] [phone] * (ABNORMAL) Basic metabolic panel (07/31/2024 9:00 AM EDT) Sodium 140 133 - 145 mmol/L LAB CHEMISTRY METHOD 07/31/2024 1:11 PM [facility] LAB Potassium 4.6 3.5 - 5.5 mmol/L LAB CHEMISTRY METHOD 07/31/2024 1:11 PM [facility] Chloride 109 96 - 110 mmol/L LAB CHEMISTRY METHOD 07/31/2024 1:11 PM [facility] CO2 18(L) 21 - 32 mmol/L LAB CHEMISTRY METHOD 07/31/2024 1:11 PM [facility] Anion Gap 13(H) 3 - 11 LAB CHEMISTRY METHOD 07/31/2024 1:11 PM [facility] Glucose 91 70 - 100 mg/dL LAB CHEMISTRY METHOD 07/31/2024 1:11 PM [facility] BUN 19 5 - 25 mg/dL LAB CHEMISTRY METHOD 07/31/2024 1:11 PM [facility] Creatinine 0.68 0.50 - 1.10 mg/dL LAB CHEMISTRY METHOD 07/31/2024 1:11 PM [facility] LAB eGFR 87 >=60 mL/min/1. 73m2 LAB CHEMISTRY METHOD 07/31/2024 1:11 PM [facility] LAB Comment:Calculation based on the Chronic Kidney Disease Epidemiology Collaboration (CKD-EPI) equation refit without adjustment for race. BUN/Creatinine Ratio 27.9 LAB CHEMISTRY METHOD 07/31/2024 1:[address] [facility] Calcium 9.3 8.5 - 10.5 mg/dL LAB CHEMISTRY METHOD 07/31/2024 1:[address] [facility] Blood Venous blood specimen / Unknown Venipuncture / Unknown 07/31/2024 9:00 AM EDT 07/31/2024 10:22 AM EDT us Bruce Mcgrath MD LAB BLOOD ORDERABLES Final Result [facility] [address] [place] [address], documented in this encounter Visit Diagnoses Diagnosis Unspecified atrial fibrillation (CMS/HCC V24, [facility] V28) Sepsis, unspecified organism ([facility] V24, [facility] V28) Bacteremia documented in this encounter Care Teams Oxidation Operator Relationship Specialty Start Date End Date Kallie Guerrero MD [address] [place] [address] PCP - General Internal Medicine 12/23/23 documented as of this encounter
--- OUTSIDE RECORDS SUMMARY | 2024-12-05 18:04 | XMS_ITS | Encounter Summary ---
Author Organization [facility] Address [address] [place] [address] Care Team Providers Care Airport Refueling Handler Name Role Phone Kallie Guerrero MD Primary Care Provider [phone] Encounter Details Date Type Department Care Team (Late st Contact Info) Description 07/08/2024 Lab Requisition [facility] - Main Lab [address] [facility] [place] [address] Bruce Mcgrath MD [address] [place] [address] Unspecified atrial fibrillation (CMS/HCC V24, CMS/HCC V28); [...] velcro compression garments has been send to [employer] follow up 05/03/2024 Patient has slight increase in size of both legs after interruption in therapy for more than 2 weeks. Patient has not received recommended compression garments yet 05/29/2024 therapist communicated with [employer] who reported that both her hybrid liners and velcro wraps have been delivered to patient's home . Patient reports that she only received liners .. Patient to follow up with [employer] documented as of this encounter Procedures Procedure [...] LAB CHEMISTRY METHOD 07/10/2024 12:08 PM EDT [facility] LAB Potassium 4.1 3.5 - 5.5 mmol/L LAB CHEMISTRY METHOD 07/10/2024 12:08 PM [facility] Chloride 107 96 - 110 mmol/L LAB CHEMISTRY METHOD 07/10/2024 12:08 PM [facility] CO2 29 21 - 32 mmol/L LAB CHEMISTRY METHOD 07/10/2024 12:08 PM [facility] Anion Gap 7 3 - 11 LAB CHEMISTRY METHOD 07/10/2024 12:08 PM [facility] Glucose 81 70 - 100 mg/dL LAB CHEMISTRY METHOD 07/10/2024 12:08 PM [facility] BUN 16 5 - 25 mg/dL LAB CHEMISTRY METHOD 07/10/2024 12:08 PM [facility] Creatinine 0.54 0.50 - 1.10 mg/dL LAB CHEMISTRY METHOD 07/10/2024 12:08 PM [facility] LAB eGFR 92 >=60 mL/min/1. 73m2 LAB CHEMISTRY METHOD 07/10/2024 12:08 PM [facility] Comment:Calculation based on the Chronic Kidney Disease Epidemiology Collaboration (CKD-EPI) equation refit without adjustment for race. BUN/Creatinine Ratio 29.6 LAB CHEMISTRY METHOD 07/10/2024 12:08 PM [facility] Calcium 8.9 8.5 - 10.5 mg/dL LAB CHEMISTRY METHOD 07/10/2024 12:08 PM [facility] Blood Venous blood specimen / Unknown Venipuncture / Unknown 07/10/2024 8:30 AM EDT 07/10/2024 10:28 AM EDT us Bruce Mcgrath MD LAB BLOOD ORDERABLES Final Result [facility] LAB [address] [place] [address], [place] [phone] * (ABNORMAL) Complete blood count (07/10/2024 8:30 AM EDT) [facility] WBC 7.8 4.8 - 10.8 K/mcL LAB HEMETOLOGY METHOD 07/10/2024 11:12 AM [facility] RBC 4.00 3.80 - 4.80 M/mcL LAB HEMETOLOGY METHOD 07/10/2024 11:12 AM [facility] Hemoglobin 12.3 11.5 - 16.0 g/dL LAB HEMETOLOGY METHOD 07/10/2024 11:12 AM [facility] LAB Hematocrit 39.7 35.0 - 47.0 % LAB HEMETOLOGY METHOD 07/10/2024 11:12 AM [facility] LAB MCV 98.3(H) 79.0 - 98.0 FL LAB HEMETOLOGY METHOD 07/10/2024 11:12 AM [facility] MCH 30.4 27.0 - 32.0 pcg LAB HEMETOLOGY METHOD 07/10/2024 11:12 AM [facility] LAB MCHC 31.0(L) 32.0 - 37.0 g/dL LAB HEMETOLOGY METHOD 07/10/2024 11:12 AM [facility] LAB RDW 25.0(H) 11.0 - 15.0 % LAB HEMETOLOGY METHOD 07/10/2024 11:12 AM [facility] LAB Platelets 389 130 - 400 K/mcL LAB HEMETOLOGY METHOD 07/10/2024 11:12 AM [facility] LAB MPV 10.8 7.0 - 11.0 FL LAB HEMETOLOGY METHOD 07/10/2024 11:12 AM [facility] NRBC 0.0 <1.0 % LAB HEMETOLOGY METHOD 07/10/2024 11:12 AM [facility] LAB NRBC Absolute 0.00 <0.10 K/mcL LAB HEMETOLOGY METHOD 07/10/2024 11:12 AM EDT [facility] Blood Venous blood specimen / Unknown Venipuncture / Unknown 07/10/2024 8:30 AM EDT 07/10/2024 10:28 AM EDT us Bruce Mcgrath MD LAB BLOOD ORDERABLES Final Result [facility] [address] [place] [address], documented in this encounter Visit Diagnoses Diagnosis Unspecified atrial fibrillation (CMS/HCC V24, CMS/[facility] V28) Sepsis, unspecified organism (CMS/HCC V24, CMS/[facility] V28) Bacteremia documented in this encounter Care Teams Airport Refueling Handler Relationship Specialty Start Date End Date Kallie Guerrero MD [address] [place] [address] PCP - General Internal Medicine 12/23/23 documented as of this encounter
--- OUTSIDE RECORDS SUMMARY | 2024-12-05 18:04 | XMS_ITS | Patient Health Record ---
Author Organization [facility] Address [address] [place] [address] Care Team Providers Care Housecalls Nurse Name Role Phone Cesar ENGLISH, Asma Primary Care Provider Aries Rose [phone] Allergies Allergen (clinical drug ingredient) Drug/Non Drug [...] MOUTH EVERY DAY Oral; Duration: 90 Active Xarelto 20 MG 1 tablet with food Orally Once a day; Duration: 30 day(s) Active Omeprazole 40 MG TAKE 1 CAPSULE BY MO UTH DAILY EVERY MORNING; Duration: 90 Active Flovent HFA 110 MCG/ACT 1 puff Inhalatio n Twice a day Active Lialda 1.2 GM 4 Orally Once a day; Duration: 30 day(s) 04/19/2019 Not-Taking Albuterol Sulfate HFA 108 (90 Base) MCG/ACT 2 puffs as needed Inhalation every 6 hrs Active Magnesium Active Citalopram Hydrobromide 20 MG TAKE 1 TABLET EVERY DAY Oral; Duration: 90 Active Metoprolol Succinate ER 50 MG TAKE 1 TABLET BY MOUTH DAILY Oral; Duration: 90 Active Donepezil HCl 10 MG TAKE 1 TABLET BY KISHOR TH AT BEDTIME Oral; Duration: 90 Active Furosemide 20 MG TAKE 1 TABLET BY KISHOR TH EVERY DAY IN THE MORNING Oral; Duration: 7 Active Celecoxib 200 MG TAKE 1 CAPSULE EVERY DAY Oral; Duration: 90 Active Claritin 10 MG 1 tablet [...] Problem Status W/U Status Risk Notes Problem Screening for malignant neoplasm of colon (026446111) Encounter for screening for malignant neoplasm of colon (Z12.11) Active confirmed Problem Diarrhea (78522544) Diarrhea (R19.7) Active confirmed Problem Iron deficiency anemia (64261729) Iron deficiency anemia (D50.9) Active confirmed Problem Gastrointestinal hemorrhage (59240825) UGI bleed (K92.2) Active confirmed Problem Gastroesophageal reflux disease (213921594) GERD (gastroesophag eal reflux disease) (K21.9) Active confirmed Problem Diarrhea (76176166) Diarrhea, unspecified type (R19.7) Active confirmed Problem Collagenous colitis (17822915) Collagenous colitis (K52.831) Active confirmed Problem Gastric ulcer (387194167) Gastric ulcer (K25.9) Active confirmed Problem History of gastric ulcer (630650290) History of gastric ulcer (Z87.19) Active confirmed Problem Gastroesophageal reflux disease (disorder) (161224350) Chronic GERD (K21.9) Active confirmed Vital Signs Temperature 98.4 degrees Fahrenheit 06/07/2024 Blood pressure diastolic 01 mm Hg 06/07/2024 Height 67 in 06/07/2024 Blood pressure systolic 001 mm Hg 06/07/2024 Weight 208 lbs 06/07/2024 BMI 32.57 kg/m2 06/07/2024 Procedures Procedure Date Ordered Date Performed Result Body Sit e UPPER GI ENDOSCOPY 06/07/2024 N/A COLONOSCOPY 06/07/2024 N/A Encounters Encounter Location Date Provider Diagnosis [facility] [address] [place] [phone] 06/07/2024 Aries Hernández Iron deficiency anem ia D50.9 ; GERD (gastroesophageal reflux disease) K21.9 and History of gastric ulcer Z87.19 [facility] [address] [place] [phone] 12/17/2023 Aries Hernández Collagenous colitis K52.831 ; Gastric ulcer K25.9 and Chronic GERD K21.9 [facility] [address] [place] [phone] 2024 Aries Hernández [facility] [address] [place] [phone] 12/09/2023 Aries Hernández [facility] [address] [place] [phone] 08/03/2024 Aries Hernández [facility] [address] [place] [phone] 08/04/2024 Aries Hernández [facility] [address] [place] [phone] 12/17/2023 Aries Hernández Assessments Encounter Date Diagnosis [...] Start Date Coverage End Date MEDICARE OF [employer] [address] [place] [address] [phone] [id number] MADELYN DREW Self - patient is the insured 7 [employer] CLAIMS [address] [place] [address] [phone] [id number] MADELYN DREW Self - patient is the insured Medical (General) History Medical History History ICD Code Asthma- stressed induced Hypertension Depression TIA Denies FL,DM,CVA,renal disease Neg colonoscopy in 2008 with me [...]
--- OUTSIDE RECORDS SUMMARY | 2024-12-05 18:04 | XMS_ITS | Encounter Summary ---
Author Organization [facility] Address [address] [place] [address] Care Team Providers Care Equipment Maintenance Technician Name Role Phone Kallie Guerrero MD Primary Care Provider [phone] Encounter Details Date Type Department Care Team (Late st Contact Info) Description 07/05/2024 Lab Requisition [facility] - Main Lab [address] [facility] [place] [address] Bruce Mcgrath MD [address] [place] [address] Unspecified atrial fibrillation (CMS/HCC V24, CMS/HCC V28); [...] velcro compression garments has been send to [employer] follow up 05/03/2024 Patient has slight increase in size of both legs after interruption in therapy for more than 2 weeks. Patient has not received recommended compression garments yet 05/29/2024 therapist communicated with [employer] who reported that both her hybrid liners and velcro wraps have been delivered to patient's home . Patient reports that she only received liners .. Patient to follow up with [employer] documented as of this encounter Procedures Procedure [...] ng/mL LAB CHEMISTRY METHOD 07/05/2024 9:42 AM [facility] Blood Venous blood specimen / Unknown Venipuncture / Unknown 07/05/2024 5:29 AM EDT 07/05/2024 8:39 AM EDT us Bruce Mcgrath MD LAB BLOOD ORDERABLES Final Result [facility] [address] [place] [address], [place] [phone] * (ABNORMAL) Comprehensive metabolic panel (07/05/2024 5:29 AM EDT) Pathologist [facility] Sodium 143 133 - 145 mmol/L LAB CHEMISTRY METHOD 07/05/2024 9:42 AM [facility] Potassium 4.0 3.5 - 5.5 mmol/L LAB CHEMISTRY METHOD 07/05/2024 9:42 AM [facility] Chloride 107 96 - 110 mmol/L LAB CHEMISTRY METHOD 07/05/2024 9:42 AM [facility] CO2 29 21 - 32 mmol/L LAB CHEMISTRY METHOD 07/05/2024 9:42 AM [facility] Anion Gap 7 3 - 11 LAB CHEMISTRY METHOD 07/05/2024 9:42 AM [facility] Glucose 78 70 - 100 mg/dL LAB CHEMISTRY METHOD 07/05/2024 9:42 AM [facility] BUN 11 5 - 25 mg/dL LAB CHEMISTRY METHOD 07/05/2024 9:42 AM [facility] Creatinine 0.47(L) 0.50 - 1.10 mg/dL LAB CHEMISTRY METHOD 07/05/2024 9:42 AM [facility] eGFR 95 >=60 mL/min/1. 73m2 LAB CHEMISTRY METHOD 07/05/2024 9:42 AM [facility] Comment:Calculation based on the Chronic Kidney Disease Epidemiology Collaboration (CKD-EPI) equation refit without adjustment for race. BUN/Creatinine Ratio 23.4 LAB CHEMISTRY METHOD 07/05/2024 9:42 AM [facility] Calcium 8.3(L) 8.5 - 10.5 mg/dL LAB CHEMISTRY METHOD 07/05/2024 9:42 AM [facility] AST (SGOT) 134(H) 10 - 42 unit/L LAB CHEMISTRY METHOD 07/05/2024 9:42 AM [facility] ALT (SGPT) 70(H) 10 - 60 unit/L LAB CHEMISTRY METHOD 07/05/2024 9:42 AM [facility] Alkaline Phosphatase 105 42 - 121 unit/L LAB CHEMISTRY METHOD 07/05/2024 9:42 AM [facility] Total Protein 4.5(L) 6.0 - 8.0 g/dL LAB CHEMISTRY METHOD 07/05/2024 9:42 AM [facility] Albumin 2.2(L) 3.2 - 5.0 g/dL LAB CHEMISTRY METHOD 07/05/2024 9:42 AM [facility] Total Bilirubin 0.3 0.0 - 1.4 mg/dL LAB CHEMISTRY METHOD 07/05/2024 9:42 AM [facility] Blood Venous blood specimen / Unknown Venipuncture / Unknown 07/05/2024 5:29 AM EDT 07/05/2024 8:39 AM EDT us Bruce Mcgrath MD LAB BLOOD ORDERABLES Final Result [facility] [address] [place] [address], * (ABNORMAL) Complete blood count (07/05/2024 5:29 AM EDT) [facility] WBC 7.0 4.8 - 10.8 K/mcL LAB HEMETOLOGY METHOD 07/05/2024 9:01 AM [facility] RBC 3.80 3.80 - 4.80 M/mcL LAB HEMETOLOGY METHOD 07/05/2024 9:01 AM [facility] Hemoglobin 11.4(L) 11.5 - 16.0 g/dL LAB HEMETOLOGY METHOD 07/05/2024 9:01 AM [facility] Hematocrit 36.7 35.0 - 47.0 % LAB HEMETOLOGY METHOD 07/05/2024 9:01 AM [facility] MCV 96.1 79.0 - 98.0 FL LAB HEMETOLOGY METHOD 07/05/2024 9:01 AM [facility] MCH 29.8 27.0 - 32.0 pcg LAB HEMETOLOGY METHOD 07/05/2024 9:01 AM [facility] MCHC 31.1(L) 32.0 - 37.0 g/dL LAB HEMETOLOGY METHOD 07/05/2024 9:01 AM [facility] RDW LAB HEMETOLOGY METHOD 07/05/2024 9:01 AM [facility] Comment:Not Measured Platelets 273 130 - 400 K/mcL LAB HEMETOLOGY METHOD 07/05/2024 9:01 AM [facility] MPV 11.8(H) 7.0 - 11.0 FL LAB HEMETOLOGY METHOD 07/05/2024 9:01 AM [facility] NRBC 0.0 <1.0 % LAB HEMETOLOGY METHOD 07/05/2024 9:01 AM [facility] NRBC Absolute 0.00 <0.10 K/[facility] LAB HEMETOLOGY METHOD 07/05/2024 9:[address] [facility] Blood Venous blood specimen / Unknown Venipuncture / Unknown 07/05/2024 5:29 AM EDT 07/05/2024 8:39 AM EDT us Bruce Mcgrath MD LAB BLOOD ORDERABLES Final Result [facility] [address] [place] [address], documented in this encounter Visit Diagnoses Diagnosis Unspecified atrial fibrillation (CMS/HCC V24, CMS/[facility] V28) Sepsis, unspecified organism (CMS/HCC V24, CMS/[facility] V28) Bacteremia documented in this encounter Care Teams Equipment Maintenance Technician Relationship Specialty Start Date End Date Kallie Guerrero MD [address] [place] [address] PCP - General Internal Medicine 12/23/23 documented as of this encounter
--- OUTSIDE RECORDS SUMMARY | 2024-12-05 18:04 | XMS_ITS | Encounter Summary ---
Author Organization [facility] Address [address] [place] [address] Care Team Providers Care Business Office Technician Name Role Phone Kallie Guerrero MD Primary Care Provider [phone] Encounter Details Date Type Department Care Team (Late st Contact Info) Description 07/21/2024 Lab Requisition [facility] - Main Lab [address] [facility] [place] [address] Bruce Mcgrath MD [address] [place] [address] Unspecified atrial fibrillation (CMS/HCC V24, CMS/HCC V28); [...] velcro compression garments has been send to [employer] follow up 05/03/2024 Patient has slight increase in size of both legs after interruption in therapy for more than 2 weeks. Patient has not received recommended compression garments yet 05/29/2024 therapist communicated with [employer] who reported that both her hybrid liners and velcro wraps have been delivered to patient's home . Patient reports that she only received liners .. Patient to follow up with [employer] documented as of this encounter Procedures Procedure [...] K/mcL LAB HEMETOLOGY METHOD 07/24/2024 11:44 AM [facility] RBC 4.00 3.80 - 4.80 M/mcL LAB HEMETOLOGY METHOD 07/24/2024 11:44 AM [facility] Hemoglobin 12.9 11.5 - 16.0 g/dL LAB HEMETOLOGY METHOD 07/24/2024 11:44 AM [facility] Hematocrit 41.0 35.0 - 47.0 % LAB HEMETOLOGY METHOD 07/24/2024 11:44 AM [facility] MCV 101.7(H) 79.0 - 98.0 FL LAB HEMETOLOGY METHOD 07/24/2024 11:44 AM [facility] MCH 32.0 27.0 - 32.0 pcg LAB HEMETOLOGY METHOD 07/24/2024 11:44 AM [facility] MCHC 31.5(L) 32.0 - 37.0 g/dL LAB HEMETOLOGY METHOD 07/24/2024 11:44 AM [facility] RDW 21.7(H) 11.0 - 15.0 % LAB HEMETOLOGY METHOD 07/24/2024 11:44 AM [facility] Platelets 226 130 - 400 K/mcL LAB HEMETOLOGY METHOD 07/24/2024 11:44 AM [facility] MPV 11.2(H) 7.0 - 11.0 FL LAB HEMETOLOGY METHOD 07/24/2024 11:44 AM [facility] NRBC 0.0 <1.0 % LAB HEMETOLOGY METHOD 07/24/2024 11:44 AM [facility] NRBC Absolute 0.00 <0.10 K/mcL LAB HEMETOLOGY METHOD 07/24/2024 11:44 AM [facility] Blood Venous blood specimen / Unknown Venipuncture / Unknown 07/24/2024 9:03 AM EDT 07/24/2024 10:59 AM EDT Bruce Mcgrath MD LAB BLOOD ORDERABLES Final Result [facility] [address] [place] [address], [place] [phone] * (ABNORMAL) Basic metabolic panel (07/24/2024 9:03 AM EDT) Pathologist [facility] Sodium 141 133 - 145 mmol/L LAB CHEMISTRY METHOD 07/24/2024 12:55 PM [facility] Potassium 4.6 3.5 - 5.5 mmol/L LAB CHEMISTRY METHOD 07/24/2024 12:55 PM [facility] Chloride 106 96 - 110 mmol/L LAB CHEMISTRY METHOD 07/24/2024 12:55 PM [facility] CO2 28 21 - 32 mmol/L LAB CHEMISTRY METHOD 07/24/2024 12:55 PM [facility] Anion Gap 7 3 - 11 LAB CHEMISTRY METHOD 07/24/2024 12:55 PM [facility] Glucose 120(H) 70 - 100 mg/dL LAB CHEMISTRY METHOD 07/24/2024 12:55 PM [facility] BUN 21 5 - 25 mg/dL LAB CHEMISTRY METHOD 07/24/2024 12:55 PM [facility] Creatinine 0.67 0.50 - 1.10 mg/dL LAB CHEMISTRY METHOD 07/24/2024 12:55 PM [facility] eGFR 87 >=60 mL/min/1. 73m2 LAB CHEMISTRY METHOD 07/24/2024 12:55 PM [facility] Comment:Calculation based on the Chronic Kidney Disease Epidemiology Collaboration (CKD-EPI) equation refit without adjustment for race. BUN/Creatinine Ratio 31.3 LAB CHEMISTRY METHOD 07/24/2024 12:55 PM EDT [facility] Calcium 9.3 8.5 - 10.5 mg/dL LAB CHEMISTRY METHOD 07/24/2024 12:55 PM EDT [facility] Blood Venous blood specimen / Unknown Venipuncture / Unknown 07/24/2024 9:03 AM EDT 07/24/2024 10:59 AM EDT us Bruce Mcgrath MD LAB BLOOD ORDERABLES Final Result [facility] [address] [place] [address], documented in this encounter Visit Diagnoses Diagnosis Unspecified atrial fibrillation (CMS/HCC V24, CMS/[facility] V28) Sepsis, unspecified organism (CMS/[facility] V24, [facility] V28) Bacteremia documented in this encounter Care Teams Business Office Technician Relationship Specialty Start Date End Date Kallie Guerrero MD [address] [place] [address] PCP - General Internal Medicine 12/23/23 documented as of this encounter
--- OUTSIDE RECORDS SUMMARY | 2024-12-05 18:04 | XMS_ITS | Clinical Summary ---
Author Organization [facility] Address [address] [place] [address] Phone Care Team Providers Care Associate Director Finance Name Role Phone Kallie Guerrero MD Primary Care Provider [phone] Active Problems Problem Noted Date Diagnosed Date Lymphatic edema 12/30/2023 Social History Tobacco Use Types Packs/Day Years [...] 01/25/2022 Social Influencers of Health Screening 01/25/2022 Depression Screening 02/23/2024 COVID-19 Vaccine ( season) 2024 03/24/2023, 12/06/2021, 12/16/2020, Additional history exists Influenza Vaccine (#1) 2024 , 12/23/2022, 01/12/2022, [...] velcro compression garments has been send to [employer] follow up 05/03/2024 Patient has slight increase in size of both legs after interruption in therapy for more than 2 weeks. Patient has not received recommended compression garments yet 05/29/2024 therapist communicated with [employer] who reported that both her hybrid liners and velcro wraps have been delivered to patient's home . Patient reports that she only received liners .. Patient to follow up with [employer] Insurance MEDICARE [facility] Member Subscriber Plan / Payer (Ef fective 2024-Present) Name:Madelyn Swanson Member ID:Not on file Relation to Subscriber:Self Name:Madelyn Swanson Subscriber ID:Not on file Payer ID:[id number] Group ID:Not on file Type:Not on file Address: [address] [place] [address] [facility] Care Teams Associate Director Finance Relationship Specialty Start Date End Date Kallie Guerrero MD [address] [place] [address] PCP - General Internal Medicine 12/23/23
--- OUTSIDE RECORDS SUMMARY | 2024-12-05 18:04 | XMS_ITS | Encounter Summary ---
Author Organization [facility] Address [address] [place] [address] Care Team Providers Care Spring Former Name Role Phone Kallie Guerrero MD Primary Care Provider [phone] Encounter Details Date Type Department Care Team (Late st Contact Info) Description 07/18/2024 Lab Requisition [facility] - Main Lab [address] [facility] [address] Bruce Mcgrath MD [address] [place] [address] Unspecified atrial fibrillation (CMS/HCC V24, CMS/HCC V28); [...] velcro compression garments has been send to [employer] follow up 05/03/2024 Patient has slight increase in size of both legs after interruption in therapy for more than 2 weeks. Patient has not received recommended compression garments yet 05/29/2024 therapist communicated with [employer] who reported that both her hybrid liners and velcro wraps have been delivered to patient's home . Patient reports that she only received liners .. Patient to follow up with [employer] documented as of this encounter Procedures Procedure [...] metabolic panel (07/19/2024 5:50 AM EDT) Pathologist [facility] Sodium 142 133 - 145 mmol/L LAB CHEMISTRY METHOD 07/19/2024 9:47 AM [facility] Potassium 4.2 3.5 - 5.5 mmol/L LAB CHEMISTRY METHOD 07/19/2024 9:47 AM [facility] Chloride 108 96 - 110 mmol/L LAB CHEMISTRY METHOD 07/19/2024 9:47 AM [facility] CO2 30 21 - 32 mmol/L LAB CHEMISTRY METHOD 07/19/2024 9:47 AM [facility] Anion Gap 4 3 - 11 LAB CHEMISTRY METHOD 07/19/2024 9:47 AM [facility] Glucose 92 70 - 100 mg/dL LAB CHEMISTRY METHOD 07/19/2024 9:47 AM [facility] BUN 20 5 - 25 mg/dL LAB CHEMISTRY METHOD 07/19/2024 9:47 AM [facility] Creatinine 0.62 0.50 - 1.10 mg/dL LAB CHEMISTRY METHOD 07/19/2024 9:47 AM [facility] eGFR 89 >=60 mL/min/1. 73m2 LAB CHEMISTRY METHOD 07/19/2024 9:47 AM [facility] Comment:Calculation based on the Chronic Kidney Disease Epidemiology Collaboration (CKD-EPI) equation refit without adjustment for race. BUN/Creatinine Ratio 32.3 LAB CHEMISTRY METHOD 07/19/2024 9:47 AM [facility] Calcium 9.0 8.5 - 10.5 mg/dL LAB CHEMISTRY METHOD 07/19/2024 9:47 AM [facility] AST (SGOT) 24 10 - 42 unit/L LAB CHEMISTRY METHOD 07/19/2024 9:47 AM [facility] Comment:Results verified by repeat testing ALT (SGPT) 25 10 - 60 unit/L LAB CHEMISTRY METHOD 07/19/2024 9:47 AM [facility] Alkaline Phosphatase 123(H) 42 - 121 unit/L LAB CHEMISTRY METHOD 07/19/2024 9:47 AM EDT [facility] Total Protein 5.4(L) 6.0 - 8.0 g/dL LAB CHEMISTRY METHOD 07/19/2024 9:47 AM EDT [facility] Albumin 3.0(L) 3.2 - 5.0 g/dL LAB CHEMISTRY METHOD 07/19/2024 9:47 AM EDT [facility] Total Bilirubin 0.3 0.0 - 1.4 mg/dL LAB CHEMISTRY METHOD 07/19/2024 9:47 AM EDT [facility] Blood Venous blood specimen / Unknown Venipuncture / Unknown 07/19/2024 5:50 AM EDT 07/19/2024 8:26 AM EDT Bruce Mcgrath MD LAB BLOOD ORDERABLES Final Result [facility] [address] [place] [address], * (ABNORMAL) Complete blood count (07/19/2024 5:50 AM EDT) WBC 6.8 4.8 - 10.8 K/mcL LAB HEMETOLOGY METHOD 07/19/2024 9:04 AM EDT [facility] RBC 3.90 3.80 - 4.80 M/mcL LAB HEMETOLOGY METHOD 07/19/2024 9:04 AM EDT [facility] Hemoglobin 12.4 11.5 - 16.0 g/dL LAB HEMETOLOGY METHOD 07/19/2024 9:04 AM EDT [facility] Hematocrit 39.5 35.0 - 47.0 % LAB HEMETOLOGY METHOD 07/19/2024 9:04 AM [facility] MCV 100.5(H) 79.0 - 98.0 FL LAB HEMETOLOGY METHOD 07/19/2024 9:04 AM EDT [facility] MCH 31.6 27.0 - 32.0 pcg LAB HEMETOLOGY METHOD 07/19/2024 9:04 AM EDT [facility] MCHC 31.4(L) 32.0 - 37.0 g/dL LAB HEMETOLOGY METHOD 07/19/2024 9:04 AM EDT [facility] RDW 22.9(H) 11.0 - 15.0 % LAB HEMETOLOGY METHOD 07/19/2024 9:04 AM EDT [facility] Platelets 224 130 - 400 K/mcL LAB HEMETOLOGY METHOD 07/19/2024 9:04 AM EDT [facility] MPV 11.0 7.0 - 11.0 FL LAB HEMETOLOGY METHOD 07/19/2024 9:04 AM EDT [facility] NRBC 0.0 <1.0 % LAB HEMETOLOGY METHOD 07/19/2024 9:04 AM EDT [facility] NRBC Absolute 0.00 <0.10 K/mcL LAB HEMETOLOGY METHOD 07/19/2024 9:04 AM EDT [facility] Blood Venous blood specimen / Unknown Venipuncture / Unknown 07/19/2024 5:50 AM EDT 07/19/2024 8:26 AM EDT us Bruce Mcgrath MD LAB BLOOD ORDERABLES Final Result [facility] [address] [place] [address], documented in this encounter Visit Diagnoses Diagnosis Unspecified atrial fibrillation (CMS/HCC V24, CMS/HCC V28) Sepsis, unspecified organism (CMS/HCC V24, CMS/HCC V28) Bacteremia documented in this encounter Care Teams Spring Former Relationship Specialty Start Date End Date Kallie Guerrero MD [address] [place] [address] PCP - General Internal Medicine 12/23/23 documented as of this encounter
--- OUTSIDE RECORDS SUMMARY | 2024-12-05 18:04 | XMS_ITS | Encounter Summary ---
Author Organization [facility] Address [address] [place] [address] Care Team Providers Care Crate Builder Name Role Phone Kallie Guerrero MD Primary Care Provider [phone] Encounter Details Date Type Department Care Team (Late st Contact Info) Description 07/17/2024 Lab Requisition [facility] - Main Lab [address] [facility] [place] [address] Bruce Mcgrath MD [address] [place] [address] Unspecified atrial fibrillation (CMS/HCC V24, CMS/HCC V28); [...] velcro compression garments has been send to [employer] follow up 05/03/2024 Patient has slight increase in size of both legs after interruption in therapy for more than 2 weeks. Patient has not received recommended compression garments yet 05/29/2024 therapist communicated with [employer] who reported that both her hybrid liners and velcro wraps have been delivered to patient's home . Patient reports that she only received liners .. Patient to follow up with [employer] documented as of this encounter Visit Diagnoses Diagnosis Unspecified atrial fibrillation (CMS/HCC V24, CMS/HCC V28) Sepsis, unspecified organism (CMS/HCC V24, CMS/HCC V28) Bacteremia documented in this encounter Care Teams Crate Builder Relationship Specialty Start Date End Date Kallie Guerrero MD [address] [place] [address] PCP - General Internal Medicine 12/23/23 documented as of this encounter
--- OUTSIDE RECORDS SUMMARY | 2024-12-05 18:04 | XMS_ITS | Patient Health Record ---
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 Problem Lymphedema (02044247) Lymphedema (I89.0) Active confirmed Plan Of Treatment Pending Test Test Name Order Date X ray : Foot, left 2V 05/29/2011 X ray : Foot, right 2V 05/29/2011 *Liver Function Test (LFT) 09/27/2017 X ray : Foot, left 3V 06/05/2014 44190-YFBCBZX NAIL, 6 OR MORE 05/22/2014 29763-RPFEGIA NAIL, 6 OR MORE 04/21/2013 54913-FGYEYUV NAIL, 6 OR MORE 07/28/2013 62049-IIXWVEN NAIL, 6 OR MORE 11/14/2013 48334-KDXIUKS NAIL, 6 OR MORE 02/09/2014 08574-EFFLIYY NAIL, 6 OR MORE 09/10/2014 42778-TFJXEWD NAIL, 6 OR MORE 11/30/2014 04792-RPGBDBQ NAIL, 6 OR MORE 03/01/2015 35557-QJTHMTX NAIL, 6 OR MORE 05/24/2015 59090-HNMVNAX NAIL, 6 OR MORE 08/16/2015 90879-EJHLSCM NAIL, 6 OR MORE 11/22/2015 67445-JOYERVS NAIL, 6 OR MORE 02/11/2016 75907-YYHPAIP NAIL, 6 OR MORE 04/05/2012 74548-NROXENK NAIL, 6 OR MORE 10/23/2011 95623-TTWEKDK NAIL, 6 OR MORE 01/05/2012 78641-SOCWSEB NAIL, 6 OR MORE 07/12/2012 54542-LEEQHDZ NAIL, 6 OR MORE 10/14/2012 66897-ODBRPKX NAIL, 6 OR MORE 01/13/2013 19103-YKKXEWO NAIL, 6 OR MORE 08/14/2011 84769-XKNVUBL NAIL, 6 OR MORE 05/29/2011 99536-PMXKFSU NAIL, 6 OR MORE 11/18/2010 56137-QABHOLE NAIL, 6 OR MORE 09/27/2017 97744-WZDAEYU NAIL, 6 OR MORE 05/29/2016 66990-BNMTAHJ NAIL, 6 OR MORE 08/28/2016 80943-VOWHFST NAIL, 6 OR MORE 12/08/2016 61611-BKENTFN NAIL, 6 OR MORE 03/09/2017 98815-CZGMBDG NAIL, 6 OR MORE 12/28/2017 41868-Lsjl Destruction, -14 08/28/2016 01205-Gfgj Destruction, -14 11/30/2014 61963-Vxda Destruction, -14 11/18/2010 17456-Hzsj Destruction, -14 08/14/2011 08103-Bjlu Destruction, -14 02/27/2011 21329-Tapf Destruction, -14 05/29/2011 11025-Fvfu Destruction, -14 01/13/2013 55987-Gnwe Destruction, -14 10/14/2012 02905-Jlxy Destruction, -14 07/12/2012 11760-Sacr Destruction, -14 04/05/2012 55730-Lozi Destruction, -14 10/23/2011 47493-Fsvw Destruction, -14 01/05/2012 62641-Epum Destruction, -14 02/11/2016 03349-Wrda Destruction, -14 11/22/2015 15451-Rcwt Destruction, -14 08/16/2015 13511-Bxca Destruction, -14 05/24/2015 60944-Htvc Destruction, -14 03/01/2015 76167-Njij Destruction, -14 07/03/2014 39067-Bcqu Destruction, -14 09/10/2014 38064-Xfqz Destruction, -14 07/28/2013 04515-Yvek Destruction, 1-14 04/21/2013 01068-Bmcj Destruction, 1-14 05/22/2014 67562-Dier Destruction, 1-14 11/14/2013 80508-Tpkm Destruction, 1-14 02/09/2014 60001-Unfgeawc Plate 07/03/2014 87051-Dtyyilxp Plate 05/22/2014 07299-Elxbdlpu Plate 04/21/2013 10669-Bthskkvy Plate 07/28/2013 54881-Jtjfysve Plate 02/09/2014 99340-Lctvqmvg Plate 11/14/2013 67118-Smuccdzc Plate 09/10/2014 97427-Dxdckipj Plate 11/30/2014 31358-Ucuhaols Plate 04/05/2012 01255-Vgvwtszl Plate 10/23/2011 81564-Ptvxqcuy Plate 01/05/2012 23983-Gkaywdwe Plate 07/12/2012 85097-Ycrraeua Plate 01/13/2013 85700-Hkksjpro Plate 05/29/2011 82415-Plthmqmz Plate 02/27/2011 27038-Xwzkevlk Plate 11/18/2010 35748-WDALEKA SKIN/TISSUE 05/22/2014 82302-FUPPEUM SKIN/TISSUE 06/05/2014 33577-BQUT SKIN LESIONS, OVER 4 03/01/19 16 83902-AMQT SKIN LESIONS, OVER 4 05/24/19 16 67051-HESD SKIN LESIONS, OVER 4 08/16/19 16 42581-FMYH SKIN LESIONS, OVER 4 11/22/19 16 54612-NSTT SKIN LESIONS, OVER 4 02/11/20 16 78410-LTCL SKIN LESIONS, OVER 4 09/28/19 18 95118-LMUN SKIN LESIONS, OVER 4 12/29/19 18 99015-ARMO SKIN LESIONS, OVER 4 12/09/19 17 19289-DWIR SKIN LESIONS, OVER 4 05/30/19 17 85169-DAPJ SKIN LESIONS, OVER 4 08/29/19 17 81125-IMWR SKIN LESIONS, OVER 4 06/16/19 18 16800-FHAG SKIN LESIONS, OVER 4 03/09/19 18 97665-BEAW SKIN LESIONS, OVER 4 03/29/19 19 12589-KSEH SKIN LESIONS, OVER 4 07/09/19 19 74051-XOSP SKIN LESIONS, OVER 4 10/08/19 19 23108-HESK SKIN LESIONS, OVER 4 01/07/20 19 43625-OSYK SKIN LESIONS, OVER 4 04/07/19 20 92270-SBKV SKIN LESIONS, OVER 4 06/30/19 20 20990-BZSE SKIN LESIONS, OVER 4 09/29/19 20 43211-AELD SKIN LESIONS, OVER 4 12/29/19 20 80384-TIUX SKIN LESIONS, OVER 4 04/09/19 21 94929-NXZC SKIN LESIONS, OVER 4 07/06/19 21 28378-EXXR SKIN LESIONS, OVER 4 10/05/19 21 41993-GCVX SKIN LESIONS, OVER 4 01/04/20 21 40454-PQBK SKIN LESIONS, OVER 4 04/04/19 22 09508- Nail Unit Biopsy 06/15/2017 Insurance Providers Payer Name Payer Address Payer Phone Subscriber Number Group Number Insured Name Patient Relationship to Insured Coverage Start Date Coverage End Date Medicare [employer] [address] [place] [address] [id number] Madelyn Clark Self - patient is the insured Medical (General) History Medical History History ICD Code asthma chicken pox hypertension measles mumps mumps measles hypertension chicken pox asthma Cellulitis Diverticulitis Surgical History Surgery Date(Month/Year) oral surgery 11/05 skin cancer removal forehead 11/28/13 Dental Implant 05/08/15 Hospitalization History Reason Date(Month/Year) [facility]- bleeding ulcers 09/08-09/14 [facility] couldn't open her eye 07/2018 [facility], Diverticulitis 07/16/16-07/20/16 [facility] for Dental implant 05/08/15 MRI, TIA, MRA 08/06 oral surgery 11/05
== END 2024-12-05 15:11 | disposition home or self-care (01) ==
LOC: HO.MAMMO 15:10
PROVIDERS: PCP Internal Medicine; Visit Provider Internal Medicine
DX: Z12.31 Encounter for screening mammogram for malignant neoplasm of breast (principal)
CPT/HCPCS: 77063; 77067

== ENCOUNTER → 2024-12-05 15:15 | Outpatient (BNV) | payer MEDICARE, SELFPAY | PROVIDERS: PCP Internal Medicine; Visit Provider Radiology Body Imaging | DX: Z12.31 Encounter for screening mammogram for malignant neoplasm of breast (principal) | CPT/HCPCS: 77063; 77067 ==

== ENCOUNTER 2024-12-15 10:45 | Outpatient (REF) | payer MEDICARE, SELFPAY ==
--- OUTSIDE RECORDS SUMMARY | 2023-12-09 06:40 | XMS_ITS ---
Author Organization [facility] Address [address] [place] [address] Care Team Providers Care Skein Yarn Dyer Helper Name Role Phone Cesar ENGLISH, Asma Primary Care Provider Aries Rose [phone] Allergies Allergen (clinical drug ingredient) Drug/Non Drug [...] 12/09/2023 Encounters Encounter Location Date [facility] [address] [address] 12/09/2023 Aries Hernández Plan Of Treatment No Information Progress Notes * ANGI DREW BDOB: 1940 (84 yo F)Acc No.[id number]:12/09/2023 Progress Notes Patient: Hernesto HENDERSON ANGI GARCÍA B Provider: Suman Hernández MD :1940 A ge:83 Y S ex:Female Date:12/09/2023 Address:[address] [place], [place] [id number] Pcp:Kallie Guerrero MD Subjective: * Chief Complaints: * 1 . Patient presents today for colitis. * Medical History: A sthma- stressed induced, Hypertension, Depression, TIA, Denies PA,DM,CVA,renal disease, Neg colonoscopy in 2008 with me [...] Follow-up G iving encouragement to exercise, B PA management provided Y jenni. Urinary Incontinence: U [...] Date: Generated for Bryon marin/Leonides/Oswald on: 1 12:32 PM EDT
--- OUTSIDE RECORDS SUMMARY | 2024-06-07 11:20 | XMS_ITS ---
Author Organization [facility] Address [address] [place] [address] Care Team Providers Care Publicity Director Name Role Phone Cesar ENGLISH, Asma Primary Care Provider Aries Rose [phone] Allergies Allergen (clinical drug ingredient) Drug/Non Drug [...] Status Risk Notes Problem Iron deficiency anemia (56787698) Iron deficiency anemia (D50.9) Active confirmed Problem Gastroesophageal reflux disease (231384428) GERD (gastroesophag eal reflux disease) (K21.9) Active confirmed Problem History of gastric ulcer (918315023) History of gastric ulcer (Z87.19) Active confirmed [...] N/A Encounters Encounter Location Date Provider Diagnosis [facility] [address] [facility] [address] [place] [address] 06/07/2024 Aries Hernández Iron deficiency anemia D50.9 [...] ANGI DREW BDOB: 1940 (84 yo F)Acc No.[id number]:06/07/2024 Progress Notes Patient: Hernesto HENDERSON ANGI GARCÍA B Provider: Suman Hernández MD :1940 A ge:83 Y S ex:Female Date:06/07/2024 Address:[address] [place] [address] Pcp:Kalile Guerrero MD Subjective: * Chief Complaints: * * Medical History: A sthma- stressed induced, Hypertension, Depression, TIA, Denies [place],DM,CVA,renal disease, Neg colonoscopy in 2008 with me [...] Codes: 4 3235 UPPR GI ENDOSCOPY, DIAGNOSIS, 413[address] DIAGNOSTIC COLONOSCOPY * Preventive Medicine: Counseling: C are goal follow-up plan: A robert Normal BMI Follow-up D ietary management education, guidance, and counseling, B [place] management provided Y es. Urinary Incontinence: U [...] 0 06/07/2024 Generated for Bryon marin/Leonides/Amanuelsmitting on: 12:32 PM EDT
--- OUTSIDE RECORDS SUMMARY | 2024-08-07 09:10 | XMS_ITS ---
Author Organization [facility] Address [address] [place] [phone] Care Team Providers Care Personal Banking Representative Name Role Phone Cesar ENGLISH, Kallie Primary Care Provider Aries Rose [phone] REASON FOR VISIT fe def anemia, melia,hx gastric ulcer Encounters Encounter Location Date Provider Diagnosis [facility] [place] Out[facility] [address] [place] [phone] 08/07/2024 Aries Hernández Plan Of Treatment No Information Progress Notes * ANGI DREW BDOB: 1940 (84 yo F)Acc No.[id number]:08/07/2024 EGD and COL/MAC Patient: Hernesto HENDERSON ANGI GARCÍA Provider: Suman Hernández MD :1940 A ge:83 Y S ex:Female Date:08/07/2024 Address:[address] [place], [place] [phone] Pcp:Kallie Guerrero MD Subjective: * Chief Complaints: [...] 08/07/2024 Generated for Bryon marin/Leonides/Amanuelsmitting on: 1 12:32 PM EDT
--- NOTE | 2024-12-15 12:05 | EEG_ITS ---
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 Patient was on the ground for 5 days before going to hospital. Patient does not have much memory of the episode. Patient has not had one since. Last meal was 9pm yesterday. Medication: no list available Technical description: Photic stimulation: completed Hyperventilation:?omitted Behavioral state: cooperative State of Consciousness: awake and sleep Skull defect: none Sedation: none Handedness: right Duration of study:?31 min 58? sec Description: This is a 16 channel EEG with an EKG lead. Patient is reported awake during the tracing. Background EEG rhythm is 12-14 hertz 5-100 microvolt posteriorly and lower amplitude fast anteriorly with no obvious asymmetry or paroxysmal tendency. Photic stimulation does not produce any significant driving. Hyperventilation is not performed. No sharp waves, spikes, asymmetric activity, or paroxysmal activity noted. Cardiac lead does not reveal any significant abnormality. Patient transitioned into light sleep with no significant abnormality. Impression: Unremarkable EEG with light sleep.. MTDD
--- OUTSIDE RECORDS SUMMARY | 2024-12-15 12:33 | XMS_ITS | Encounter Summary ---
Author Organization [facility] Address [address] [place] [address] Care Team Providers Care Workforce Development Program Director Name Role Phone Kallie Guerrero MD Primary Care Provider [phone] Encounter Details Date Type Department Care Team (Late st Contact Info) Description 07/08/2024 Lab Requisition [facility] - Main Lab [address] [facility] [place] [address] Bruce Mcgrath MD [address] [place] [address] Unspecified atrial fibrillation (CMS/HCC V24, CMS/HCC V28); [...] velcro compression garments has been send to [facility] [employer] follow up 05/03/2024 Patient has slight increase in size of both legs after interruption in therapy for more than 2 weeks. Patient has not received recommended compression garments yet 05/29/2024 therapist communicated with [employer] who reported that both her hybrid liners and velcro wraps have been delivered to patient's home . Patient reports that she only received liners .. Patient to follow up with [employer] documented as of this encounter Procedures Procedure [...] LAB CHEMISTRY METHOD 07/10/2024 12:[address] [facility] Potassium 4.1 3.5 - 5.5 mmol/L LAB CHEMISTRY METHOD 07/10/2024 12:08 PM [facility] Chloride 107 96 - 110 mmol/L LAB CHEMISTRY METHOD 07/10/2024 12:08 PM [facility] CO2 29 21 - 32 mmol/L LAB CHEMISTRY METHOD 07/10/2024 12:08 PM [facility] Anion Gap 7 3 - 11 LAB CHEMISTRY METHOD 07/10/2024 12:08 PM [facility] Glucose 81 70 - 100 mg/dL LAB CHEMISTRY METHOD 07/10/2024 12:08 PM [facility] BUN 16 5 - 25 mg/dL LAB CHEMISTRY METHOD 07/10/2024 12:08 PM [facility] Creatinine 0.54 0.50 - 1.10 mg/dL LAB CHEMISTRY METHOD 07/10/2024 12:08 PM [facility] eGFR 92 >=60 mL/min/1. 73m2 LAB CHEMISTRY METHOD 07/10/2024 12:08 PM [facility] Comment:Calculation based on the Chronic Kidney Disease Epidemiology Collaboration (CKD-EPI) equation refit without adjustment for race. BUN/Creatinine Ratio 29.6 LAB CHEMISTRY METHOD 07/10/2024 12:08 PM [facility] Calcium 8.9 8.5 - 10.5 mg/dL LAB CHEMISTRY METHOD 07/10/2024 12:08 PM [facility] Blood Venous blood specimen / Unknown Venipuncture / Unknown 07/10/2024 8:30 AM EDT 07/10/2024 10:28 AM EDT us Bruce Mcgrath MD LAB BLOOD ORDERABLES Final Result [facility] [address] [place] [address], [place] [phone] * (ABNORMAL) Complete blood count (07/10/2024 8:30 AM EDT) [facility] WBC 7.8 4.8 - 10.8 K/mcL LAB HEMETOLOGY METHOD 07/10/2024 11:12 AM [facility] RBC 4.00 3.80 - 4.80 M/mcL LAB HEMETOLOGY METHOD 07/10/2024 11:12 AM [facility] Hemoglobin 12.3 11.5 - 16.0 g/dL LAB HEMETOLOGY METHOD 07/10/2024 11:12 AM [facility] Hematocrit 39.7 35.0 - 47.0 % LAB HEMETOLOGY METHOD 07/10/2024 11:12 AM [facility] MCV 98.3(H) 79.0 - 98.0 FL LAB HEMETOLOGY METHOD 07/10/2024 11:12 AM [facility] MCH 30.4 27.0 - 32.0 pcg LAB HEMETOLOGY METHOD 07/10/2024 11:12 AM [facility] MCHC 31.0(L) 32.0 - 37.0 g/dL LAB HEMETOLOGY METHOD 07/10/2024 11:12 AM [facility] RDW 25.0(H) 11.0 - 15.0 % LAB HEMETOLOGY METHOD 07/10/2024 11:12 AM [facility] Platelets 389 130 - 400 K/mcL LAB HEMETOLOGY METHOD 07/10/2024 11:12 AM [facility] MPV 10.8 7.0 - 11.0 FL LAB HEMETOLOGY METHOD 07/10/2024 11:12 AM [facility] NRBC 0.0 <1.0 % LAB HEMETOLOGY METHOD 07/10/2024 11:12 AM [facility] NRBC Absolute 0.00 <0.10 K/mcL LAB HEMETOLOGY METHOD 07/10/2024 11:[address] [facility] Blood Venous blood specimen / Unknown Venipuncture / Unknown 07/10/2024 8:30 AM EDT 07/10/2024 10:28 AM EDT us Bruce Mcgrath MD LAB BLOOD ORDERABLES Final Result [facility] [address] [place] [address], documented in this encounter Visit Diagnoses Diagnosis Unspecified atrial fibrillation (CMS/HCC V24, CMS/[facility] V28) Sepsis, unspecified organism (CMS/HCC V24, CMS/[facility] V28) Bacteremia documented in this encounter Care Teams Workforce Development Program Director Relationship Specialty Start Date End Date Kallie Guerrero MD [address] [place] [address] PCP - General Internal Medicine 12/23/23 documented as of this encounter
--- OUTSIDE RECORDS SUMMARY | 2024-12-15 12:33 | XMS_ITS | Patient Health Record ---
Author Organization [facility] Address [address] [place] [address] Care Team Providers Care Act English Tutor Name Role Phone Cesar ENGLISH, [facility] Primary Care Provider Aman Pittman Unavailable [phone] Allergies Allergen (clinical drug ingredient) Drug/Non Drug [...] atherosclerosis of arteries of lower limbs (disorder) (70777408152650059 ) Unspecified atherosclerosis of [place] arteries of extremities, bilateral legs (I70.203) Active confirmed Problem Lymphedema (59960219) Lymphedema (I89.0) Active confirmed Plan Of Treatment Pending Test Test Name Order Date X ray : Foot, left 2V 05/29/2011 X ray : Foot, right 2V 05/29/2011 *Liver Function Test (LFT) 09/27/2017 X ray : Foot, left 3V 06/05/2014 96990-IDTKUYK NAIL, 6 OR MORE 05/22/2014 10274-FAOAKDW NAIL, 6 OR MORE 04/21/2013 39252-SQMZARY NAIL, 6 OR MORE 07/28/2013 12494-VVODKZJ NAIL, 6 OR MORE 11/14/2013 10082-ZVMTHRW NAIL, 6 OR MORE 02/09/2014 15687-GPZDKJC NAIL, 6 OR MORE 09/10/2014 83932-GVNNHWN NAIL, 6 OR MORE 11/30/2014 87013-DTGRMPC NAIL, 6 OR MORE 03/01/2015 62149-OPUSAZW NAIL, 6 OR MORE 05/24/2015 97386-KJWIUAW NAIL, 6 OR MORE 08/16/2015 62426-AQCCCZR NAIL, 6 OR MORE 11/22/2015 12574-JOTHJND NAIL, 6 OR MORE 02/11/2016 84888-ROEJRDE NAIL, 6 OR MORE 04/05/2012 54077-ZJPFHHB NAIL, 6 OR MORE 10/23/2011 06554-AOUJRDM NAIL, 6 OR MORE 01/05/2012 35094-LCMVRJM NAIL, 6 OR MORE 07/12/2012 80197-WIAGSKF NAIL, 6 OR MORE 10/14/2012 55029-KMDKQNF NAIL, 6 OR MORE 01/13/2013 72993-DNWHRCY NAIL, 6 OR MORE 08/14/2011 20474-WYZIACK NAIL, 6 OR MORE 05/29/2011 47200-FRXRWVP NAIL, 6 OR MORE 11/18/2010 38968-DMCNXFO NAIL, 6 OR MORE 09/27/2017 97906-GOXADSM NAIL, 6 OR MORE 05/29/2016 17394-OMPSYFM NAIL, 6 OR MORE 08/28/2016 18235-VBRSFMJ NAIL, 6 OR MORE 12/08/2016 02185-JJKXKJX NAIL, 6 OR MORE 03/09/2017 95181-YKDOEVD NAIL, 6 OR MORE 12/28/2017 98937-Rznc Destruction, -14 08/28/2016 59353-Fypk Destruction, -14 11/30/2014 56631-Mlzy Destruction, -14 11/18/2010 63368-Dofq Destruction, -14 08/14/2011 65182-Lnqw Destruction, -14 02/27/2011 98794-Nvxo Destruction, -14 05/29/2011 99974-Kajo Destruction, -14 01/13/2013 29878-Ezwi Destruction, -14 10/14/2012 34866-Dezg Destruction, -14 07/12/2012 14407-Doon Destruction, -14 04/05/2012 91694-Lxhk Destruction, -14 10/23/2011 29925-Gpct Destruction, -14 01/05/2012 58610-Gigk Destruction, -14 02/11/2016 90959-Ltpk Destruction, -14 11/22/2015 84875-Hiqx Destruction, -14 08/16/2015 50784-Wcns Destruction, -14 05/24/2015 19050-Trwv Destruction, -14 03/01/2015 60819-Qsfa Destruction, -14 07/03/2014 07674-Kmep Destruction, -14 09/10/2014 03959-Qifw Destruction, -14 07/28/2013 42986-Xsrp Destruction, 1-14 04/21/2013 53935-Gdnz Destruction, 1-14 05/22/2014 46473-Ghik Destruction, 1-14 11/14/2013 11830-Teli Destruction, 1-14 02/09/2014 37530-Hahhkuvl Plate 07/03/2014 36786-Fhwethjo Plate 05/22/2014 16237-Irbryxof Plate 04/21/2013 03785-Ayhgdshy Plate 07/28/2013 05086-Yyaxscji Plate 02/09/2014 13312-Sycccvml Plate 11/14/2013 53924-Yfopdnih Plate 09/10/2014 93568-Rmptzfrz Plate 11/30/2014 61107-Owhsnrii Plate 04/05/2012 56043-Yjphpwfc Plate 10/23/2011 91421-Ezvlwpsa Plate 01/05/2012 04044-Xiaddiru Plate 07/12/2012 54439-Aljaqhos Plate 01/13/2013 37310-Cwzqzgzi Plate 05/29/2011 23855-Zmlkjuov Plate 02/27/2011 13529-Ajdjkqcn Plate 11/18/2010 48968-QIGZMUY SKIN/TISSUE 05/22/2014 90554-LHECRJW SKIN/TISSUE 06/05/2014 90585-MOAH SKIN LESIONS, OVER 4 03/01/19 16 64341-EYUO SKIN LESIONS, OVER 4 05/24/19 16 57006-XPLS SKIN LESIONS, OVER 4 08/16/19 16 78407-ODOZ SKIN LESIONS, OVER 4 11/22/19 16 59649-TRPL SKIN LESIONS, OVER 4 02/11/20 16 79797-PRXG SKIN LESIONS, OVER 4 09/28/19 18 54270-GARF SKIN LESIONS, OVER 4 12/29/19 18 85792-QRIU SKIN LESIONS, OVER 4 12/09/19 17 29793-QDZI SKIN LESIONS, OVER 4 05/30/19 17 73326-XJWL SKIN LESIONS, OVER 4 08/29/19 17 92878-ZDEP SKIN LESIONS, OVER 4 06/16/19 18 92654-VKQN SKIN LESIONS, OVER 4 03/09/19 18 78972-VWLU SKIN LESIONS, OVER 4 03/29/19 19 57644-TEQF SKIN LESIONS, OVER 4 07/09/19 19 77420-HEQF SKIN LESIONS, OVER 4 10/08/19 19 42823-SFHU SKIN LESIONS, OVER 4 01/07/20 19 30285-KOQC SKIN LESIONS, OVER 4 04/07/19 20 59152-GVHZ SKIN LESIONS, OVER 4 06/30/19 20 44449-OICM SKIN LESIONS, OVER 4 09/29/19 20 19749-KCWG SKIN LESIONS, OVER 4 12/29/19 20 12443-XSCJ SKIN LESIONS, OVER 4 04/09/19 21 90643-QQOP SKIN LESIONS, OVER 4 07/06/19 21 52128-UUOY SKIN LESIONS, OVER 4 10/05/19 21 89165-PYHF SKIN LESIONS, OVER 4 01/04/20 21 41141-SVFU SKIN LESIONS, OVER 4 04/04/19 22 74466- Nail Unit Biopsy 06/15/2017 Insurance Providers Payer Name Payer Address Payer Phone Subscriber Number Group Number Insured Name Patient Relationship to Insured Coverage Start Date Coverage End Date Medicare National [employer] [address] [place] [address] [id number] Madelyn Clark Self - patient is the insured Medical (General) History Medical History History ICD Code asthma chicken pox hypertension measles mumps mumps measles hypertension chicken pox asthma Cellulitis Diverticulitis Surgical History Surgery Date(Month/Year) oral surgery 11/05 skin cancer removal forehead 11/28/13 Dental Implant 05/08/15 [place]ization History Reason Date([place] [facility] [place] [facility] [place] 07[place] [facility] [place] Divert[place] 07/16/16-07/20/16 [facility] for Dental implant 05/08/15 MRI, TIA, MRA 08/06 oral surgery 11/05
--- OUTSIDE RECORDS SUMMARY | 2024-12-15 12:34 | XMS_ITS | Patient Health Record ---
Author Organization [facility] Address [address] [place] [address] Care Team Providers Care Corporate Development Intern Name Role Phone Cesar ENGLISH, Asma Primary Care Provider Aries Rose [phone] Allergies Allergen (clinical drug ingredient) Drug/Non Drug [...] Problem Screening for malignant neoplasm of colon (392407043) Encounter for screening for malignant neoplasm of colon (Z12.11) Active confirmed Problem Diarrhea (89042088) Diarrhea (R19.7) Active confirmed Problem Iron deficiency anemia (81024482) Iron deficiency anemia (D50.9) Active confirmed Problem Gastrointestinal hemorrhage (05612197) UGI bleed (K92.2) Active confirmed Problem Gastroesophageal reflux disease (737883974) GERD (gastroesophag eal reflux disease) (K21.9) Active confirmed Problem Diarrhea (97557757) Diarrhea, unspecified type (R19.7) Active confirmed Problem Collagenous colitis (11934826) Collagenous colitis (K52.831) Active confirmed Problem Gastric ulcer (861845870) Gastric ulcer (K25.9) Active confirmed Problem History of gastric ulcer (242322928) History of gastric ulcer (Z87.19) Active confirmed Problem Gastroesophageal reflux disease (disorder) (246229155) Chronic GERD (K21.9) Active confirmed Vital Signs Temperature 98.4 degrees Fahrenheit 06/07/2024 Blood pressure diastolic 01 mm Hg 06/07/2024 Height 67 in 06/07/2024 Blood pressure systolic 001 mm Hg 06/07/2024 Weight 208 lbs 06/07/2024 BMI 32.57 kg/m2 06/07/2024 Procedures Procedure Date Ordered Date Performed Result Body Sit e UPPER GI ENDOSCOPY 06/07/2024 N/A COLONOSCOPY 06/07/2024 N/A Encounters Encounter Location Date Provider Diagnosis [facility] [address] [place] [phone] 06/07/2024 Aries Hernández Iron deficiency anem ia D50.9 ; GERD (gastroesophageal reflux disease) K21.9 and History of gastric ulcer Z87.19 [facility] [address] [place] [address] 12/17/2023 Aries Hernández Collagenous colitis K52.831 ; Gastric ulcer K25.9 and Chronic GERD K21.9 [facility] [address] [place] [address] 2024 Aries Hernández [facility] [address] [place] [phone] 08/03/2024 Aries Hernández [facility] [address] [place] [phone] 08/04/2024 Aries Hernández [facility] [address] [place] [phone] 12/17/2023 Aries Hernández Assessments Encounter Date Diagnosis [...] Coverage End Date MEDICARE OF [employer] [address] [place] [address] [id number] YARELIS GARCÍA MADELYN Self - patient is the insured 7 [employer] CLAIMS [address] [place] [address] [phone] [id number] SANTOYO RAQUEL MADELYN Self - patient is the insured Medical (General) History Medical History History ICD Code Asthma- stressed induced Hypertension Depression TIA Denies [place],DM,CVA,renal disease Neg colonoscopy in 2008 with me [...]
--- OUTSIDE RECORDS SUMMARY | 2024-12-15 12:34 | XMS_ITS | Clinical Summary ---
Author Organization [facility] Address [address] [place] [address] Phone Care Team Providers Care Technical Education Teacher Name Role Phone Kallie Guerrero MD Primary Care Provider [phone] Active Problems Problem Noted Date Diagnosed Date [...] velcro compression garments has been send to [employer] [employer] [facility] [employer] follow up 05/03/2024 Patient has slight increase in size of both legs after interruption in therapy for more than 2 weeks. Patient has not received recommended compression garments yet 05/29/2024 therapist communicated with [employer] who reported that both her hybrid liners and velcro wraps have been delivered to patient's home . Patient reports that she only received liners .. Patient to follow up with [employer] Insurance MEDICARE [facility] Member Subscriber Plan / Payer (Ef fective 2024-Present) Name:Madelyn Swanson Member ID:Not on file Relation to Subscriber:Self Name:Madelyn Swanson Subscriber ID:Not on file Payer ID:[id number] Group ID:Not on file Type:Not on file Address: [address] [place] [address] [facility] Care Teams Technical Education Teacher Relationship Specialty Start Date End Date Kallie Guererro MD [address] [place] [address] PCP - General Internal Medicine 12/23/23
--- OUTSIDE RECORDS SUMMARY | 2024-12-15 12:34 | XMS_ITS | Encounter Summary ---
Author Organization [facility] Address [address] [place] [address] Care Team Providers Care Pigment And Lacquer Mixer Name Role Phone Kallie Guerrero MD Primary Care Provider [phone] Encounter Details Date Type Department Care Team (Late st Contact Info) Description 07/05/2024 Lab Requisition [facility] - Main Lab [address] [facility] [place] [address] Bruce Mcgrath MD [address] [place] [address] Unspecified atrial fibrillation (CMS/HCC V24, CMS/HCC V28); [...] velcro compression garments has been send to [facility] [employer] [facility] [employer] follow up 05/03/2024 Patient has slight increase in size of both legs after interruption in therapy for more than 2 weeks. Patient has not received recommended compression garments yet 05/29/2024 therapist communicated with [employer] who reported that both her hybrid liners and velcro wraps have been delivered to patient's home . Patient reports that she only received liners .. Patient to follow up with [facility] [employer] documented as of this encounter Procedures [...] ng/mL LAB CHEMISTRY METHOD 07/05/2024 9:42 AM [facility] Blood Venous blood specimen / Unknown Venipuncture / Unknown 07/05/2024 5:29 AM EDT 07/05/2024 8:39 AM EDT us Bruce Mcgrath MD LAB BLOOD ORDERABLES Final Result [facility] [address] [place] [address], [place] [phone] * (ABNORMAL) Comprehensive metabolic panel (07/05/2024 5:29 AM EDT) Pathologist [facility] Sodium 143 133 - 145 mmol/L LAB CHEMISTRY METHOD 07/05/2024 9:42 AM [facility] Potassium 4.0 3.5 - 5.5 mmol/L LAB CHEMISTRY METHOD 07/05/2024 9:42 AM [facility] Chloride 107 96 - 110 mmol/L LAB CHEMISTRY METHOD 07/05/2024 9:42 AM [facility] CO2 29 21 - 32 mmol/L LAB CHEMISTRY METHOD 07/05/2024 9:42 AM [facility] Anion Gap 7 3 - 11 LAB CHEMISTRY METHOD 07/05/2024 9:42 AM [facility] Glucose 78 70 - 100 mg/dL LAB CHEMISTRY METHOD 07/05/2024 9:42 AM [facility] BUN 11 5 - 25 mg/dL LAB CHEMISTRY METHOD 07/05/2024 9:42 AM [facility] Creatinine 0.47(L) 0.50 - 1.10 mg/dL LAB CHEMISTRY METHOD 07/05/2024 9:42 AM [facility] eGFR 95 >=60 mL/min/1. 73m2 LAB CHEMISTRY METHOD 07/05/2024 9:42 AM [facility] Comment:Calculation based on the Chronic Kidney Disease Epidemiology Collaboration (CKD-EPI) equation refit without adjustment for race. BUN/Creatinine Ratio 23.4 LAB CHEMISTRY METHOD 07/05/2024 9:42 AM [facility] Calcium 8.3(L) 8.5 - 10.5 mg/dL LAB CHEMISTRY METHOD 07/05/2024 9:42 AM [facility] AST (SGOT) 134(H) 10 - 42 unit/L LAB CHEMISTRY METHOD 07/05/2024 9:42 AM [facility] ALT (SGPT) 70(H) 10 - 60 unit/L LAB CHEMISTRY METHOD 07/05/2024 9:42 AM [facility] Alkaline Phosphatase 105 42 - 121 unit/L LAB CHEMISTRY METHOD 07/05/2024 9:42 AM [facility] Total Protein 4.5(L) 6.0 - 8.0 g/dL LAB CHEMISTRY METHOD 07/05/2024 9:42 AM [facility] Albumin 2.2(L) 3.2 - 5.0 g/dL LAB CHEMISTRY METHOD 07/05/2024 9:42 AM [facility] Total Bilirubin 0.3 0.0 - 1.4 mg/dL LAB CHEMISTRY METHOD 07/05/2024 9:42 AM [facility] Blood Venous blood specimen / Unknown Venipuncture / Unknown 07/05/2024 5:29 AM EDT 07/05/2024 8:39 AM EDT us Bruce Mcgrath MD LAB BLOOD ORDERABLES Final Result [facility] [address] [place] [address], * (ABNORMAL) Complete blood count (07/05/2024 5:29 AM EDT) [facility] WBC 7.0 4.8 - 10.8 K/mcL LAB HEMETOLOGY METHOD 07/05/2024 9:01 AM [facility] RBC 3.80 3.80 - 4.80 M/mcL LAB HEMETOLOGY METHOD 07/05/2024 9:01 AM [facility] Hemoglobin 11.4(L) 11.5 - 16.0 g/dL LAB HEMETOLOGY METHOD 07/05/2024 9:01 AM [facility] Hematocrit 36.7 35.0 - 47.0 % LAB HEMETOLOGY METHOD 07/05/2024 9:01 AM [facility] MCV 96.1 79.0 - 98.0 FL LAB HEMETOLOGY METHOD 07/05/2024 9:01 AM [facility] MCH 29.8 27.0 - 32.0 pcg LAB HEMETOLOGY METHOD 07/05/2024 9:01 AM [facility] MCHC 31.1(L) 32.0 - 37.0 g/dL LAB HEMETOLOGY METHOD 07/05/2024 9:01 AM [facility] RDW LAB HEMETOLOGY METHOD 07/05/2024 9:01 AM [facility] Comment:Not Measured Platelets 273 130 - 400 K/mcL LAB HEMETOLOGY METHOD 07/05/2024 9:01 AM [facility] MPV 11.8(H) 7.0 - 11.0 FL LAB HEMETOLOGY METHOD 07/05/2024 9:01 AM [facility] NRBC 0.0 <1.0 % LAB HEMETOLOGY METHOD 07/05/2024 9:01 AM [facility] NRBC Absolute 0.00 <0.10 K[facility] LAB HEMETOLOGY METHOD 07/05/2024 9:01 AM EDT [facility] Blood Venous blood specimen / Unknown Venipuncture / Unknown 07/05/2024 5:29 AM EDT 07/05/2024 8:39 AM EDT us Bruce Mcgrath MD LAB BLOOD ORDERABLES Final Result [facility] [address] [place] [address], documented in this encounter Visit Diagnoses Diagnosis Unspecified atrial fibrillation (CMS/HCC V24, CMS/[facility] V28) Sepsis, unspecified organism (CMS/HCC V24, CMS/[facility] V28) Bacteremia documented in this encounter Care Teams Pigment And Lacquer Mixer Relationship Specialty Start Date End Date Kallie Guerrero MD [address] [place] [address] PCP - General Internal Medicine 12/23/23 documented as of this encounter
--- OUTSIDE RECORDS SUMMARY | 2024-12-15 12:34 | XMS_ITS | Encounter Summary ---
Author Organization [facility] Address [address] [place] [address] Care Team Providers Care Residential Property Manager Name Role Phone Kallie Guerrero MD Primary Care Provider Encounter Details Date Type Department Care Team (Late st Contact Info) Description 07/28/2024 Lab Requisition [facility] - Main Lab [address] [facility] [place] [address] Bruce Mcgrath MD [address] [place] [address] Unspecified atrial fibrillation (CMS/HCC V24, CMS/HCC V28); [...] velcro compression garments has been send to [employer] follow up 05/03/2024 Patient has slight increase in size of both legs after interruption in therapy for more than 2 weeks. Patient has not received recommended compression garments yet 05/29/2024 therapist communicated with [employer] who reported that both her hybrid liners and velcro wraps have been delivered to patient's home . Patient reports that she only received liners .. Patient to follow up with [employer] documented as of this encounter Procedures Procedure [...] K/mcL LAB HEMETOLOGY METHOD 07/31/2024 11:48 AM [facility] RBC 4.40 3.80 - 4.80 M/mcL LAB HEMETOLOGY METHOD 07/31/2024 11:48 AM [facility] Hemoglobin 14.1 11.5 - 16.0 g/dL LAB HEMETOLOGY METHOD 07/31/2024 11:48 AM [facility] Hematocrit 42.8 35.0 - 47.0 % LAB HEMETOLOGY METHOD 07/31/2024 11:48 AM [facility] MCV 96.8 79.0 - 98.0 FL LAB HEMETOLOGY METHOD 07/31/2024 11:48 AM [facility] MCH 31.9 27.0 - 32.0 pcg LAB HEMETOLOGY METHOD 07/31/2024 11:48 AM [facility] MCHC 32.9 32.0 - 37.0 g/dL LAB HEMETOLOGY METHOD 07/31/2024 11:48 AM [facility] RDW 19.5(H) 11.0 - 15.0 % LAB HEMETOLOGY METHOD 07/31/2024 11:48 AM [facility] Platelets 181 130 - 400 K/mcL LAB HEMETOLOGY METHOD 07/31/2024 11:48 AM [facility] MPV 11.4(H) 7.0 - 11.0 FL LAB HEMETOLOGY METHOD 07/31/2024 11:48 AM [facility] NRBC 0.2 <1.0 % LAB HEMETOLOGY METHOD 07/31/2024 11:48 AM [facility] NRBC Absolute 0.02 <0.10 K/mcL LAB HEMETOLOGY METHOD 07/31/2024 11:48 AM [facility] Blood Venous blood specimen / Unknown Venipuncture / Unknown 07/31/2024 9:00 AM EDT 07/31/2024 10:22 AM EDT Bruce Mgcrath MD LAB BLOOD ORDERABLES Final Result [facility] [address] [place] [address], [place] [phone] * (ABNORMAL) Basic metabolic panel (07/31/2024 9:00 AM EDT) Sodium 140 133 - 145 mmol/L LAB CHEMISTRY METHOD 07/31/2024 1:11 PM [facility] Potassium 4.6 3.5 - 5.5 mmol/L LAB CHEMISTRY METHOD 07/31/2024 1:11 PM [facility] Chloride 109 96 - 110 mmol/L LAB CHEMISTRY METHOD 07/31/2024 1:11 PM [facility] CO2 18(L) 21 - 32 mmol/L LAB CHEMISTRY METHOD 07/31/2024 1:11 PM [facility] Anion Gap 13(H) 3 - 11 LAB CHEMISTRY METHOD 07/31/2024 1:11 PM [facility] Glucose 91 70 - 100 mg/dL LAB CHEMISTRY METHOD 07/31/2024 1:11 PM [facility] BUN 19 5 - 25 mg/dL LAB CHEMISTRY METHOD 07/31/2024 1:11 PM [facility] Creatinine 0.68 0.50 - 1.10 mg/dL LAB CHEMISTRY METHOD 07/31/2024 1:11 PM [facility] eGFR 87 >=60 mL/min/1. 73m2 LAB CHEMISTRY METHOD 07/31/2024 1:11 PM [facility] Comment:Calculation based on the Chronic Kidney Disease Epidemiology Collaboration (CKD-EPI) equation refit without adjustment for race. BUN/Creatinine Ratio 27.9 LAB CHEMISTRY METHOD 07/31/2024 1:11 PM EDT [facility] Calcium 9.3 8.5 - 10.5 mg/dL LAB CHEMISTRY METHOD 07/31/2024 1:11 PM EDT [facility] Blood Venous blood specimen / Unknown Venipuncture / Unknown 07/31/2024 9:00 AM EDT 07/31/2024 10:22 AM EDT us Bruce Mcgrath MD LAB BLOOD ORDERABLES Final Result [facility] [address] [place] [address], documented in this encounter Visit Diagnoses Diagnosis Unspecified atrial fibrillation (CMS/HCC V24, [facility] V28) Sepsis, unspecified organism ([facility] V24, [facility] V28) Bacteremia documented in this encounter Care Teams Residential Property Manager Relationship Specialty Start Date End Date Kallie Guerrero MD [address] [place] [address] PCP - General Internal Medicine 12/23/23 documented as of this encounter
--- OUTSIDE RECORDS SUMMARY | 2024-12-15 12:34 | XMS_ITS | Encounter Summary ---
Author Organization [facility] Address [address] [place] [address] Care Team Providers Care Cable Engineer Outside Plant Name Role Phone Kallie Guerrero MD Primary Care Provider [phone] Encounter Details Date Type Department Care Team (Late st Contact Info) Description 07/18/2024 Lab Requisition [facility] - Main Lab [address] [facility] [place] [address] Bruce Mcgrath MD [address] [place] [address] Unspecified atrial fibrillation (CMS/HCC V24, CMS/HCC V28); [...] velcro compression garments has been send to [employer] follow up 05/03/2024 Patient has slight increase in size of both legs after interruption in therapy for more than 2 weeks. Patient has not received recommended compression garments yet 05/29/2024 therapist communicated with [employer] who reported that both her hybrid liners and velcro wraps have been delivered to patient's home . Patient reports that she only received liners .. Patient to follow up with [employer] documented as of this encounter Procedures Procedure [...] metabolic panel (07/19/2024 5:50 AM EDT) Pathologist [facility] Sodium 142 133 - 145 mmol/L LAB CHEMISTRY METHOD 07/19/2024 9:47 AM [facility] Potassium 4.2 3.5 - 5.5 mmol/L LAB CHEMISTRY METHOD 07/19/2024 9:47 AM [facility] Chloride 108 96 - 110 mmol/L LAB CHEMISTRY METHOD 07/19/2024 9:47 AM [facility] CO2 30 21 - 32 mmol/L LAB CHEMISTRY METHOD 07/19/2024 9:47 AM [facility] Anion Gap 4 3 - 11 LAB CHEMISTRY METHOD 07/19/2024 9:47 AM [facility] Glucose 92 70 - 100 mg/dL LAB CHEMISTRY METHOD 07/19/2024 9:47 AM [facility] BUN 20 5 - 25 mg/dL LAB CHEMISTRY METHOD 07/19/2024 9:47 AM [facility] Creatinine 0.62 0.50 - 1.10 mg/dL LAB CHEMISTRY METHOD 07/19/2024 9:47 AM [facility] eGFR 89 >=60 mL/min/1. 73m2 LAB CHEMISTRY METHOD 07/19/2024 9:47 AM [facility] Comment:Calculation based on the Chronic Kidney Disease Epidemiology Collaboration (CKD-EPI) equation refit without adjustment for race. BUN/Creatinine Ratio 32.3 LAB CHEMISTRY METHOD 07/19/2024 9:47 AM [facility] Calcium 9.0 8.5 - 10.5 mg/dL LAB CHEMISTRY METHOD 07/19/2024 9:47 AM [facility] AST (SGOT) 24 10 - 42 unit/L LAB CHEMISTRY METHOD 07/19/2024 9:47 AM [facility] Comment:Results verified by repeat testing ALT (SGPT) 25 10 - 60 unit/L LAB CHEMISTRY METHOD 07/19/2024 9:47 AM [facility] Alkaline Phosphatase 123(H) 42 - 121 unit/L LAB CHEMISTRY METHOD 07/19/2024 9:47 AM EDT [facility] Total Protein 5.4(L) 6.0 - 8.0 g/dL LAB CHEMISTRY METHOD 07/19/2024 9:47 AM EDT [facility] Albumin 3.0(L) 3.2 - 5.0 g/dL LAB CHEMISTRY METHOD 07/19/2024 9:47 AM EDT [facility] Total Bilirubin 0.3 0.0 - 1.4 mg/dL LAB CHEMISTRY METHOD 07/19/2024 9:47 AM EDT [facility] Blood Venous blood specimen / Unknown Venipuncture / Unknown 07/19/2024 5:50 AM EDT 07/19/2024 8:26 AM EDT Bruce Mcgrath MD LAB BLOOD ORDERABLES Final Result [facility] [address] [place] [address], * (ABNORMAL) Complete blood count (07/19/2024 5:50 AM EDT) WBC 6.8 4.8 - 10.8 K/mcL LAB HEMETOLOGY METHOD 07/19/2024 9:04 AM EDT [facility] RBC 3.90 3.80 - 4.80 M/mcL LAB HEMETOLOGY METHOD 07/19/2024 9:04 AM EDT [facility] Hemoglobin 12.4 11.5 - 16.0 g/dL LAB HEMETOLOGY METHOD 07/19/2024 9:04 AM EDT [facility] Hematocrit 39.5 35.0 - 47.0 % LAB HEMETOLOGY METHOD 07/19/2024 9:04 AM [facility] MCV 100.5(H) 79.0 - 98.0 FL LAB HEMETOLOGY METHOD 07/19/2024 9:04 AM EDT [facility] MCH 31.6 27.0 - 32.0 pcg LAB HEMETOLOGY METHOD 07/19/2024 9:04 AM EDT [facility] MCHC 31.4(L) 32.0 - 37.0 g/dL LAB HEMETOLOGY METHOD 07/19/2024 9:04 AM EDT [facility] RDW 22.9(H) 11.0 - 15.0 % LAB HEMETOLOGY METHOD 07/19/2024 9:04 AM EDT [facility] Platelets 224 130 - 400 K/mcL LAB HEMETOLOGY METHOD 07/19/2024 9:04 AM EDT [facility] MPV 11.0 7.0 - 11.0 FL LAB HEMETOLOGY METHOD 07/19/2024 9:04 AM EDT [facility] NRBC 0.0 <1.0 % LAB HEMETOLOGY METHOD 07/19/2024 9:04 AM EDT [facility] NRBC Absolute 0.00 <0.10 K/mcL LAB HEMETOLOGY METHOD 07/19/2024 9:04 AM EDT [facility] Blood Venous blood specimen / Unknown Venipuncture / Unknown 07/19/2024 5:50 AM EDT 07/19/2024 8:26 AM EDT us Bruce Mcgrath MD LAB BLOOD ORDERABLES Final Result [facility] [address] [place] [address], documented in this encounter Visit Diagnoses Diagnosis Unspecified atrial fibrillation (CMS/HCC V24, CMS/HCC V28) Sepsis, unspecified organism (CMS/HCC V24, CMS/HCC V28) Bacteremia documented in this encounter Care Teams Cable Engineer Outside Plant Relationship Specialty Start Date End Date Kallie Guerrero MD [address] [place] [address] PCP - General Internal Medicine 12/23/23 documented as of this encounter
--- OUTSIDE RECORDS SUMMARY | 2024-12-15 12:34 | XMS_ITS | Encounter Summary ---
Author Organization [facility] Address [address] [place] [address] Care Team Providers Care Purchasing Administrative Assistant Name Role Phone Kallie Guerrero MD Primary Care Provider [phone] Encounter Details Date Type Department Care Team (Late st Contact Info) Description 07/17/2024 Lab Requisition [facility] - Main Lab [address] [facility] [place] [address] Bruce Mcgrath MD [address] [place] [address] Unspecified atrial fibrillation (CMS/HCC V24, CMS/HCC V28); [...] velcro compression garments has been send to [employer] follow up 05/03/2024 Patient has slight increase in size of both legs after interruption in therapy for more than 2 weeks. Patient has not received recommended compression garments yet 05/29/2024 therapist communicated with [employer] who reported that both her hybrid liners and velcro wraps have been delivered to patient's home . Patient reports that she only received liners .. Patient to follow up with [employer] documented as of this encounter Visit Diagnoses Diagnosis Unspecified atrial fibrillation (CMS/HCC V24, CMS/HCC V28) Sepsis, unspecified organism (CMS/HCC V24, CMS/HCC V28) Bacteremia documented in this encounter Care Teams Purchasing Administrative Assistant Relationship Specialty Start Date End Date Kallie Guerrero MD [address] [place] [address] PCP - General Internal Medicine 12/23/23 documented as of this encounter
--- OUTSIDE RECORDS SUMMARY | 2024-12-15 12:34 | XMS_ITS | Encounter Summary ---
Author Organization [facility] Address [address] [place] [address] Care Team Providers Care Junior Net Developer Name Role Phone Kallie Guerrero MD Primary Care Provider Encounter Details Date Type Department Care Team (Late st Contact Info) Description 07/21/2024 Lab Requisition [facility] - Main Lab [address] [facility] [place] [address] Bruce Mcgrath MD [address] [place] [address] Unspecified atrial fibrillation (CMS/HCC V24, CMS/HCC V28); [...] velcro compression garments has been send to [employer] follow up 05/03/2024 Patient has slight increase in size of both legs after interruption in therapy for more than 2 weeks. Patient has not received recommended compression garments yet 05/29/2024 therapist communicated with [employer] who reported that both her hybrid liners and velcro wraps have been delivered to patient's home . Patient reports that she only received liners .. Patient to follow up with [employer] documented as of this encounter Procedures Procedure [...] K/mcL LAB HEMETOLOGY METHOD 07/24/2024 11:44 AM [facility] RBC 4.00 3.80 - 4.80 M/mcL LAB HEMETOLOGY METHOD 07/24/2024 11:44 AM [facility] Hemoglobin 12.9 11.5 - 16.0 g/dL LAB HEMETOLOGY METHOD 07/24/2024 11:44 AM [facility] Hematocrit 41.0 35.0 - 47.0 % LAB HEMETOLOGY METHOD 07/24/2024 11:44 AM [facility] MCV 101.7(H) 79.0 - 98.0 FL LAB HEMETOLOGY METHOD 07/24/2024 11:44 AM [facility] MCH 32.0 27.0 - 32.0 pcg LAB HEMETOLOGY METHOD 07/24/2024 11:44 AM [facility] MCHC 31.5(L) 32.0 - 37.0 g/dL LAB HEMETOLOGY METHOD 07/24/2024 11:44 AM [facility] RDW 21.7(H) 11.0 - 15.0 % LAB HEMETOLOGY METHOD 07/24/2024 11:44 AM [facility] Platelets 226 130 - 400 K/mcL LAB HEMETOLOGY METHOD 07/24/2024 11:44 AM [facility] MPV 11.2(H) 7.0 - 11.0 FL LAB HEMETOLOGY METHOD 07/24/2024 11:44 AM [facility] NRBC 0.0 <1.0 % LAB HEMETOLOGY METHOD 07/24/2024 11:44 AM [facility] NRBC Absolute 0.00 <0.10 K/mcL LAB HEMETOLOGY METHOD 07/24/2024 11:44 AM [facility] Blood Venous blood specimen / Unknown Venipuncture / Unknown 07/24/2024 9:03 AM EDT 07/24/2024 10:59 AM EDT Bruce Mcgrath MD LAB BLOOD ORDERABLES Final Result [facility] [address] [place] [address], [place] [phone] * (ABNORMAL) Basic metabolic panel (07/24/2024 9:03 AM EDT) Pathologist [facility] Sodium 141 133 - 145 mmol/L LAB CHEMISTRY METHOD 07/24/2024 12:55 PM [facility] Potassium 4.6 3.5 - 5.5 mmol/L LAB CHEMISTRY METHOD 07/24/2024 12:55 PM [facility] Chloride 106 96 - 110 mmol/L LAB CHEMISTRY METHOD 07/24/2024 12:55 PM [facility] CO2 28 21 - 32 mmol/L LAB CHEMISTRY METHOD 07/24/2024 12:55 PM [facility] Anion Gap 7 3 - 11 LAB CHEMISTRY METHOD 07/24/2024 12:55 PM [facility] Glucose 120(H) 70 - 100 mg/dL LAB CHEMISTRY METHOD 07/24/2024 12:55 PM [facility] BUN 21 5 - 25 mg/dL LAB CHEMISTRY METHOD 07/24/2024 12:55 PM [facility] Creatinine 0.67 0.50 - 1.10 mg/dL LAB CHEMISTRY METHOD 07/24/2024 12:55 PM [facility] eGFR 87 >=60 mL/min/1. 73m2 LAB CHEMISTRY METHOD 07/24/2024 12:55 PM [facility] Comment:Calculation based on the Chronic Kidney Disease Epidemiology Collaboration (CKD-EPI) equation refit without adjustment for race. BUN/Creatinine Ratio 31.3 LAB CHEMISTRY METHOD 07/24/2024 12:55 PM EDT [facility] Calcium 9.3 8.5 - 10.5 mg/dL LAB CHEMISTRY METHOD 07/24/2024 12:55 PM EDT [facility] Blood Venous blood specimen / Unknown Venipuncture / Unknown 07/24/2024 9:03 AM EDT 07/24/2024 10:59 AM EDT us Bruce Mcgrath MD LAB BLOOD ORDERABLES Final Result [facility] [address] [place] [address], documented in this encounter Visit Diagnoses Diagnosis Unspecified atrial fibrillation (CMS/HCC V24, CMS/[facility] V28) Sepsis, unspecified organism (CMS/[facility] V24, [facility] V28) Bacteremia documented in this encounter Care Teams Junior Net Developer Relationship Specialty Start Date End Date Kallie Guerrero MD [address] [place] [address] PCP - General Internal Medicine 12/23/23 documented as of this encounter
--- OUTSIDE RECORDS SUMMARY | 2024-12-15 12:34 | XMS_ITS | Encounter Summary ---
Author Organization [facility] Address [address] [place] [address] Care Team Providers Care Cardiology Nurse Name Role Phone Kallie Guerrero MD Primary Care Provider [phone] Encounter Details Date Type Department Care Team (Late st Contact Info) Description 08/04/[address] [facility] - Main Lab [address] [facility] [place] [address] Yong Walter MD [address] [place] [address] Unspecified atrial fibrillation (CMS/HCC V24, CMS/HCC V28); [...] General On track(2024 4:26 PM EDT) Yes Sirgid Jolley, OTR/L Note: STG: Patient will have [...] velcro compression garments has been send to [employer] follow up 05/03/2024 Patient has slight increase in size of both legs after interruption in therapy for more than 2 weeks. Patient has not received recommended compression garments yet 05/29/2024 therapist communicated with [employer] who reported that both her hybrid liners and velcro wraps have been delivered to patient's home . Patient reports that she only received liners .. Patient to follow up with [employer] documented as of this encounter Procedures Procedure [...] AM EDT) WBC 6.8 4.8 - 10.8 K/[facility] LAB HEMETOLOGY METHOD 08/07/2024 12:32 PM [facility] RBC 4.10 3.80 - 4.80 M/mcL LAB HEMETOLOGY METHOD 08/07/2024 12:32 PM [facility] Hemoglobin 13.1 11.5 - 16.0 g/dL LAB HEMETOLOGY METHOD 08/07/2024 12:32 PM [facility] Hematocrit 40.6 35.0 - 47.0 % LAB HEMETOLOGY METHOD 08/07/2024 12:32 PM [facility] MCV 99.5(H) 79.0 - 98.0 FL LAB HEMETOLOGY METHOD 08/07/2024 12:32 PM [facility] MCH 32.1(H) 27.0 - 32.0 pcg LAB HEMETOLOGY METHOD 08/07/2024 12:32 PM [facility] MCHC 32.3 32.0 - 37.0 g/dL LAB HEMETOLOGY METHOD 08/07/2024 12:32 PM [facility] RDW 17.8(H) 11.0 - 15.0 % LAB HEMETOLOGY METHOD 08/07/2024 12:32 PM [facility] Platelets 191 130 - 400 K/mcL LAB HEMETOLOGY METHOD 08/07/2024 12:32 PM [facility] MPV 11.1(H) 7.0 - 11.0 FL LAB HEMETOLOGY METHOD 08/07/2024 12:32 PM [facility] NRBC 0.0 <1.0 % LAB HEMETOLOGY METHOD 08/07/2024 12:32 PM [facility] NRBC Absolute 0.00 <0.10 K/mcL LAB HEMETOLOGY METHOD 08/07/2024 12:32 PM [facility] Blood Venous blood specimen / Unknown Venipuncture / Unknown 08/07/2024 8:46 AM EDT 08/07/2024 10:25 AM EDT us Yong Walter MD LAB BLOOD ORDERABLES Final R esult [facility] [address] [place] [address], [place] [phone] * (ABNORMAL) Basic metabolic panel (08/07/2024 8:46 AM EDT) Sodium 142 133 - 145 mmol/L LAB CHEMISTRY METHOD 08/07/2024 1:01 PM [facility] Potassium 4.0 3.5 - 5.5 mmol/L LAB CHEMISTRY METHOD 08/07/2024 1:01 PM [facility] Chloride 107 96 - 110 mmol/L LAB CHEMISTRY METHOD 08/07/2024 1:01 PM [facility] CO2 28 21 - 32 mmol/L LAB CHEMISTRY METHOD 08/07/2024 1:01 PM [facility] Anion Gap 7 3 - 11 LAB CHEMISTRY METHOD 08/07/2024 1:01 PM [facility] Glucose 123(H) 70 - 100 mg/dL LAB CHEMISTRY METHOD 08/07/2024 1:01 PM [facility] BUN 12 5 - 25 mg/dL LAB CHEMISTRY METHOD 08/07/2024 1:01 PM [facility] Creatinine 0.58 0.50 - 1.10 mg/dL LAB CHEMISTRY METHOD 08/07/2024 1:01 PM [facility] eGFR 90 >=60 mL/min/1. 73m2 LAB CHEMISTRY METHOD 08/07/2024 1:01 PM [facility] Comment:Calculation based on the Chronic Kidney Disease Epidemiology Collaboration (CKD-EPI) equation refit without adjustment for race. BUN/Creatinine Ratio 20.7 LAB CHEMISTRY METHOD 08/07/2024 1:01 PM EDT [facility] Calcium 8.9 8.5 - 10.5 mg/dL LAB CHEMISTRY METHOD 08/07/2024 1:01 PM EDT [facility] Blood Venous blood specimen / Unknown Venipuncture / Unknown 08/07/2024 8:46 AM EDT 08/07/2024 10:25 AM EDT us Yong Walter MD LAB BLOOD ORDERABLES Final R esult [facility] [address] [place] [address], documented in this encounter Visit Diagnoses Diagnosis Unspecified atrial fibrillation (CMS/HCC V24, CMS/[facility] V28) Sepsis, unspecified organism (CMS/[facility] V24, [facility] V28) Bacteremia documented in this encounter Care Teams Cardiology Nurse Relationship Specialty Start Date End Date Kallie Guerrero MD [address] [place] [address] PCP - General Internal Medicine 12/23/23 documented as of this encounter
== END 2024-12-15 10:46 | disposition home or self-care (01) ==
LOC: HO.NEURO 10:45
PROVIDERS: PCP Internal Medicine; Visit Provider Psychiatry & Neurology Neurology
DX: G40.209 Localization-related (focal) (partial) symptomatic epilepsy and epileptic syndromes with complex partial seizures, not intractable, without status epilepticus (principal)
CPT/HCPCS: 95819

== ENCOUNTER → 2024-12-15 12:05 | Outpatient (BNV) | payer MEDICARE, SELFPAY | PROVIDERS: PCP Internal Medicine; Visit Provider Psychiatry & Neurology Neurology | DX: G40.209 Localization-related (focal) (partial) symptomatic epilepsy and epileptic syndromes with complex partial seizures, not intractable, without status epilepticus (principal) | CPT/HCPCS: 95819 ==

== ENCOUNTER 2024-12-28 15:25 | Outpatient (AMB) | payer MEDICARE, SELFPAY ==
--- OUTSIDE RECORDS SUMMARY | 2023-12-09 05:40 | XMS_ITS ---
Author Organization [facility] Address [address] [place] [address] Care Team Providers Care Final Assembly Inspector Name Role Phone Cesar ENGLISH, Asma Primary Care Provider Aries Rose [phone] Allergies Allergen (clinical drug ingredient) Drug/Non Drug Allergy documented on EMR Reaction Allergy Type Onset Date Status penicillamine Penicillamine Unknown Drug Allergy Active amoxicillin Amoxicillin Unknown Drug Allergy Act teena REASON FOR VISIT Patient presents today for colitis Medications Medication SIG (Take, Route, Frequency, Duration) Notes Start Date End Date Status Lialda 1.2 GM 4 Orally Once a day; Duration: 30 day(s) 04/19/2019 Not-Taking Celecoxib 200 MG TAKE 1 CAPSULE EVERY DAY Oral; Duration: 90 Active Citalopram Hydrobromide 20 MG TAKE 1 TABLET EVERY DAY Oral; Duration: 90 Active Donepezil HCl 10 MG TAKE 1 TABLET BY KISHOR TH AT BEDTIME Oral; Duration: 90 Active Furosemide 20 MG TAKE 1 TABLET BY KISHOR TH EVERY DAY IN THE MORNING Oral; Duration: 7 Active Rosuvastatin Calcium 20 MG TAKE 1 TABLET BY MOUTH EVERY DAY Oral; Duration: 90 Active Metoprolol Succinate ER 50 MG TAKE 1 TABLET BY MOUTH DAILY Oral; Duration: 90 Active Omeprazole 40 MG 1 Orally Every morni ng; Duration: 90 days 12/31/2022 Active Magnesium Active Claritin 10 MG 1 tablet Orally Once a day; Duration: 30 day(s) Active Albuterol Sulfate HFA 108 (90 Base) MCG/ACT 2 puffs as needed Inhalation every 6 hrs Active Gemfibrozil 600 MG 1 tablet 30 minutes before morning and evening meals Orally onace daily Active Multivitamin Adult - as directed Orally once a day Active Budesonide 3 MG 1 Orally Once a day 02/14/2019 Active Flovent HFA 110 MCG/ACT 1 puff Inhalatio n Twice a day Active Xarelto 20 MG 1 tablet with food Orally Once a day; Duration: 30 day(s) Active Social History Tobacco Use: Social History Observation Description Date Details (start date - stop date) Never Smoker NA - NA Tobacco Use/Smoking Question Answer Notes Patient is a nonsmoker Alcohol Screen Question Answer Notes Did you have a drink contain ing alcohol in the past year? Yes How often did you have a dri nk containing alcohol in the past year? 2 to 4 times a month (2 points) How many drinks did you have on a typical day when you were drinking in the past year? 1 or 2 drinks (0 point) How often did you have 6 or more drinks on one occasion in the past year? Never (0 point) Points 2 Interpretation Negative Section Notes: Nonsmoker; no sig alcohol Vital Signs Blood pressure systolic 00 mm Hg 12/09/19 24 Blood pressure diastolic 00 mm Hg 024 Height 67 in 12/09/2023 Weight 212 lbs 12/09/2023 BMI 33.20 kg/m2 12/09/2023 Encounters Encounter Location Date [facility] [address] [address] 12/09/2023 Aries Hernández Plan Of Treatment No Information Progress Notes * ANGI DREW BDOB: 1940 (84 yo F)Acc No.[id number]:12/09/2023 Progress Notes Patient: Hernesto HENDERSON ANGI GARCÍA B Provider: Suman Hernández MD :1940 A ge:83 Y S ex:Female Date:12/09/2023 Address:[address] [place], [place] [id number] Pcp:Kallie Guerrero MD Subjective: * Chief Complaints: * 1 . Patient presents today for colitis. * Medical History: A sthma- stressed induced, Hypertension, Depression, TIA, Denies CA,DM,CVA,renal disease, Neg colonoscopy in 2008 with me except for a hyperplastic polyp, Atrial fibrillation 2018-, Diarrhea since 07/2018--neg celiac disease labs, stool was positive for WBCs and negative for culture, EGD in 02/[address] Dalton--duodenal ulcer, erosive esophagitis, HH-gastric biopsies were negative for H. pylori and esophageal biopsies were negative for Best's esophagus, Collagenous colitis diagnosed 01/2019 and started on Entocort with good response. She is currently on 3 mg daily as of the 08/17/19 OV. She could not start a mesalamine agent as she could not afford it. Therefore, she was continued on budesonide 3 mg either daily or every other day to try to maintain some remission of the colitis., Colonoscopy 01/2019 negative for polyps, but with the above collagenous colitis, Upper GI bleed in August of 2021 relation to a small proximal gastric ulcer. This was treated endoscopically with some clips and sclerotherapy with epinephrine. She was also noted to have a large hiatal hernia but no esophagitis.. * Surgical History: D enies Past Surgical History. * Family History: F ather: unknown. M other: , cerebral hemorrhage, diagnosed with HTN (hypertension). no known hx of colon cancer, IBD, celiac disease. * Social History: T obacco Use: T obacco Use/Smoking P atient is a n onsmoker. D rugs/Alcohol: A lcohol Screen D id you have a drink containing alcohol in the past year? Y es, H ow often did you have a drink containing alcohol in the past year? 2 to 4 times a month (2 points), H ow many drinks did you have on a typical day when you were drinking in the past year??1 or 2 drinks (0 point), H ow often did you have 6 or more drinks on one occasion in the past year? N ever (0 point), P oints 2 , I nterpretation N egative. M iscellaneous: M arital status: . Occupation: retired. N onsmoker; no sig alcohol. * Medications: T aking Citalopram Hydrobromide 20 MG Tablet TAKE 1 TABLET EVERY DAY Oral , Taking Donepezil HCl 10 MG Tablet TAKE 1 TABLET BY MOUTH AT BEDTIME Oral , Taking Celecoxib 200 MG Capsule TAKE 1 CAPSULE EVERY DAY Oral , Taking Xarelto 20 MG Tablet 1 tablet with food Orally Once a day , Taking Flovent HFA 110 MCG/ACT Aerosol 1 puff Inhalation Twice a day , Taking Albuterol Sulfate HFA 108 (90 Base) MCG/ACT Aerosol Solution 2 puffs as needed Inhalation every 6 hrs , Taking Claritin 10 MG Tablet 1 tablet Orally Once a day , Taking Multivitamin Adult - Tablet as directed Orally once a day , Taking Budesonide 3 MG Capsule Delayed Release Particles 1 Orally Once a day , Taking Gemfibrozil 600 MG Tablet 1 tablet 30 minutes before morning and evening meals Orally onace daily , Taking Magnesium , Taking Metoprolol Succinate ER 50 MG Tablet Extended Release 24 Hour TAKE 1 TABLET BY MOUTH DAILY Oral , Taking Omeprazole 40 MG Capsule Delayed Release 1 Orally Every morning , Taking Furosemide 20 MG Tablet TAKE 1 TABLET BY MOUTH EVERY DAY IN THE MORNING Oral , Taking Rosuvastatin Calcium 20 MG Tablet TAKE 1 TABLET BY MOUTH EVERY DAY Oral , Not-Taking/PRN Lialda 1.2 GM Tablet Delayed Release 4 Orally Once a day , Discontinued Omeprazole 40 MG Capsule Delayed Release TAKE 1 CAPSULE BY MOUTH EVERY DAY , Medication List reviewed and reconciled with the patient * Allergies: A moxicillin, Penicillamine. Objective: * Vitals: W t: 212 lbs, Ht: 67 in, BMI:33.20Index, BP: 00/00 mm Hg. Assessment: Plan: * Treatment: * Preventive Medicine: Counseling: C are goal follow-up plan: A robert Normal BMI Follow-up G iving encouragement to exercise, B CA management provided Y jenni. Urinary Incontinence: U rinary Incontinence A ssessment: P resent, P huong of care documented: Y es, T ype of plan of care: L mosesyle interventions. Screenings: F all Risk Screening F all Risk Assessment: O ne fall with injury in the past year, S creening: O ne fall without injury in the past year, A ssessment: Not performed, no reason specified, P huong of Care: N ot documented, no reason specified. * * The named appointment provid er may or may not be the originator of this progress note, and it is not deemed complete until electronically signed by the appointment provider. Sign off status: Pending * Provider: Suman Hernández MD Date: Generated for Bryon marin/Leonides/Oswald on: 1 02/28/2024 06:22 PM EST
--- OUTSIDE RECORDS SUMMARY | 2024-06-07 10:20 | XMS_ITS ---
Author Organization [facility] Address [address] [place] [address] Care Team Providers Care Manager Print Name Role Phone Cesar ENGLISH, Asma Primary Care Provider Aries Rose [phone] Allergies Allergen (clinical drug ingredient) Drug/Non Drug Allergy documented on EMR Reaction Allergy Type Onset Date Status penicillamine Penicillamine Unknown Drug Allergy Active amoxicillin Amoxicillin Unknown Drug Allergy Act teena Medications Medication SIG (Take, Route, Frequency, Duration) Notes Start Date End Date Status Citalopram Hydrobromide 20 MG TAKE 1 TABLET EVERY DAY Oral; Duration: 90 Active Donepezil HCl 10 MG TAKE 1 TABLET BY KISHOR TH AT BEDTIME Oral; Duration: 90 Active Celecoxib 200 MG TAKE 1 CAPSULE EVERY DAY Oral; Duration: 90 Active Xarelto 20 MG 1 tablet with food Orally Once a day; Duration: 30 day(s) Active Flovent HFA 110 MCG/ACT 1 puff Inhalatio n Twice a day Active Metoprolol Succinate ER 50 MG TAKE 1 TABLET BY MOUTH DAILY Oral; Duration: 90 Active Furosemide 20 MG TAKE 1 TABLET BY KISHOR TH EVERY DAY IN THE MORNING Oral; Duration: 7 Active Rosuvastatin Calcium 20 MG TAKE 1 TABLET BY MOUTH EVERY DAY Oral; Duration: 90 Active Omeprazole 40 MG TAKE 1 CAPSULE BY MO UTH DAILY EVERY MORNING; Duration: 90 Active Lialda 1.2 GM 4 Orally Once a day; Duration: 30 day(s) 04/19/2019 Not-Taking Magnesium Active Claritin 10 MG 1 tablet Orally Once a day; Duration: 30 day(s) Active Multivitamin Adult - as directed Orally once a day Active Budesonide 3 MG 1 Orally Once a day 02/14/2019 Active Gemfibrozil 600 MG 1 tablet 30 minutes before morning and evening meals Orally onace daily Active Albuterol Sulfate HFA 108 (90 Base) MCG/ACT 2 puffs as needed Inhalation every 6 hrs Active Social History Tobacco Use: Social History [...] Negative Section Notes: Nonsmoker; no sig alcohol Problems Problem Type SNOMED Code ICD Code Onset Dates Problem Status W/U Status Risk Notes Problem Iron deficiency anemia (76556695) Iron deficiency anemia (D50.9) Active confirmed Problem Gastroesophageal reflux disease (104425964) GERD (gastroesophag eal reflux disease) (K21.9) Active confirmed Problem History of gastric ulcer (322082471) History of gastric ulcer (Z87.19) Active confirmed Vital Signs Temperature 98.4 degrees Fahrenheit 06/08/19 25 Blood pressure systolic 001 mm Hg 06/08/19 25 Blood pressure diastolic 01 mm Hg 025 Height 67 in 06/07/2024 Weight 208 lbs 06/07/2024 BMI 32.57 kg/m2 06/07/2024 Procedures Procedure Date Ordered Date Performed Result Body Sit e UPPER GI ENDOSCOPY 06/07/2024 N/A COLONOSCOPY 06/07/2024 N/A Encounters Encounter Location Date Provider Diagnosis [facility] [address] [facility] [address] [place] [address] 06/07/2024 Aries Hernández Iron deficiency anemia D50.9 ; GERD (gastroesophageal reflux disease) K21.9 and History of gastric ulcer Z87.19 Assessments Encounter Date Diagnosis (ICD Code) Assessment Notes Treatment Notes Treatment Clinical Notes Section Notes 06/07/2024 Iron deficiency anemia (ICD-10 - D50.9) Start taking the Iron pills at least once a day, but take it twice a day if it doesn't bother your stomach with constipation 06/07/2024 GERD (gastroesophage al reflux disease) (ICD-10 - K21.9) 06/07/2024 History of gastric ulcer (ICD-10 - Z87.19) Plan Of Treatment Treatment Notes Assessment Notes Iron deficiency anemia Start taking the Iron pills at least once a day, but take it twice a day if it doesn't bother your stomach with constipation Pending Test Test Name Order Date UPPER GI ENDOSCOPY 06/07/2024 COLONOSCOPY 06/07/2024 CBC w DIFF 06/07/2024 IRON PROFILE 06/07/2024 Ferritin 06/07/2024 Progress Notes * ANGI DREW BDOB: 1940 (84 yo F)Acc No.[id number]:06/07/2024 Progress Notes Patient: Hernesto HENDERSON ANGI GARCÍA B Provider: Suman Hernández MD :1940 A ge:83 Y S ex:Female Date:06/07/2024 Address:[address] [place] [address] Pcp:Kallie Guerrero MD Subjective: * Chief Complaints: * * Medical History: A sthma- stressed induced, Hypertension, Depression, TIA, Denies [place],DM,CVA,renal disease, Neg colonoscopy in 2008 with me [...] have a large hiatal hernia but no esophagitis., Lymphedema of LE's, Bilateral pulmonary emboli from a LE DVT in 06/2023. * Hospitalization/Major Diagno stic Procedure: b lood clots in legs . * Family History: F ather: unknown. M other: , cerebral hemorrhage, diagnosed with HTN (hypertension). no known hx of colon cancer, IBD, celiac disease. No family history of liver cancer. * Social History: T obacco Use: T [...] TABLET BY MOUTH DAILY Oral , Taking Furosemide 20 MG Tablet TAKE 1 TABLET BY MOUTH EVERY DAY IN THE MORNING Oral , Taking Rosuvastatin Calcium 20 MG Tablet TAKE 1 TABLET BY MOUTH EVERY DAY Oral , Taking Omeprazole 40 MG Capsule Delayed Release TAKE 1 CAPSULE BY MOUTH DAILY EVERY MORNING , Not-Taking/PRN Lialda 1.2 GM Tablet Delayed Release 4 Orally Once a day , Medication List reviewed and reconciled with the patient * Allergies: A moxicillin, Penicillamine. Objective: * Vitals: W t: 208 lbs, Ht: 67 in, BMI: 32.57 Index, BP: 001/01 mm Hg, Temp: 98.4, Wt-k.35. Assessment: * Assessment: 1. I west deficiency anemia - D50.9 (Primary) 2 . G ERD (gastroesophageal reflux disease) - K21.9 3 . H istory of gastric ulcer - Z87.19 Plan: * Treatment: ?Procedure: COLONOSCOPY* with MAC.Stop the Xarelto fo r 2 days before the procedures and clear that with Dr. Butler.Do not take the Furosemide diuretic the day before or on the day of the procedures.Stop the Iron pills one week before the proceduressched for 08/07/24 at 2pmmiralax Notes: Start taking the Iron pills at least once a day, but take it twice a day if it doesn't bother your stomach with constipation??2.?GERD (gastroesophageal reflux disease)?Procedure: UPPER GI ENDOSCOPY* sched for 08/07/24 at 2:00 pm mac ?Procedure: COLONOSCOPY* with MAC.Stop the Xarelto fo r 2 days before the procedures and clear that with Dr. Butler.Do not take the Furosemide diuretic the day before or on the day of the procedures.Stop the Iron pills one week before the proceduressched for 08/07/24 at 2pmmiralax 3.?History of gastric ulcer?Procedure: UPPER GI ENDOSCOPY* sched for 08/07/24 at 2:00 pm mac ?Procedure: COLONOSCOPY* with MAC.Stop the Xarelto fo r 2 days before the procedures and clear that with Dr. Butler.Do not take the Furosemide diuretic the day before or on the day of the procedures.Stop the Iron pills one week before the proceduressched for 08/07/24 at 2pmmiralax * Procedure Codes: 4 3235 UPPR GI ENDOSCOPY, DIAGNOSIS, 67224 DIAGNOSTIC COLONOSCOPY * Preventive Medicine: Counseling: C are goal follow-up plan: A robert Normal BMI Follow-up D ietary management education, guidance, and counseling, B [place] management provided Y es. Urinary Incontinence: U rinary Incontinence A ssessment: P resent, P huong of care documented: Y es. Screenings: F all Risk Screening F all Risk Assessment: N o falls in the past year, S creening: N o falls in the past year, A ssessment: N ot performed, no reason specified, P huong of Care: N ot documented, no reason specified. * * The named appointment provid er may or may not be the originator of this progress note, and it is not deemed complete until electronically signed by the appointment provider. Sign off status: Pending * Provider: Suman Hernández MD Date: 0 06/07/2024 Generated for Bryon marin/Leonides/Amanuelsmitting on: 02/28/2024 06:21 PM EST
--- OUTSIDE RECORDS SUMMARY | 2024-08-07 08:10 | XMS_ITS ---
Author Organization [facility] Address [address] [place] [id number] Care Team Providers Care Briquette Maker Name Role Phone Cesar ENGLISH, Kallie Primary Care Provider Aries Rose [phone] REASON FOR VISIT fe def anemia, melia,hx gastric ulcer Encounters Encounter Location Date Provider Diagnosis [facility] [place] [address] [place] [phone] 08/07/2024 Aries Hernández Plan Of Treatment No Information Progress Notes * ANGI DREW BDOB: 1940 (84 yo F)Acc No.[id number]:08/07/2024 EGD and COL/MAC Patient: Hernesto HENDERSON ANGI GARCÍA Provider: Suman Hernándze MD :1940 A ge:83 Y S ex:Female Date:08/07/2024 Address:[address] [place], [place] [phone] Pcp:Kallie Guerrero MD Subjective: * Chief Complaints: * 1 . Fe def anemia, melia,hx gastric ulcer. * Medical History: Objective: * Vitals: Assessment: Plan: * Treatment: * * The named appointment provid er may or may not be the originator of this progress note, and it is not deemed complete until electronically signed by the appointment provider. Sign off status: Pending * Provider: Suman Hernández MD Date: 0 08/07/2024 Generated for Bryon marin/Leonides/Amanuelsmitting on: 1 02/28/2024 06:21 PM EST
--- NOTE | 2024-12-28 15:31 | A.OFFVIS_ITS ---
Intake Visit Reasons: results Allergies pantoprazole Allergy (Intermediate, Verified 10/18/24 11:47) NAUSEA potassium Allergy (Intermediate, Verified 10/18/24 11:47) Itching doxycycline Allergy (Mild, Verified 10/18/24 11:47) Rash lorazepam Allergy (Unknown, Verified 10/18/24 11:47) unknown amoxicillin (AMOXICILLIN) Adverse Reaction (Intermediate, Verified 10/18/24 11:47) NAUSEA/VOMITING HPI Comments Details: 84 y/o woman with HTN, asthma, GERD, OA, mild cogntive impairment, and multiple episodes suggestive of complex partial seizure disorder. She is presenting with concerns regarding seizure-like episodes and a follow-up on previous severe hospital symptoms. In June, she was found incapacitated after laying on the floor for five days, leading to hospitalization for sepsis and dehydration. Acutely, she experienced dizziness before collapsing. The hospital stay revealed chronic lymphedema impacting her mobility, which is exacerbated by inactivity. The patient reports experiencing past episodes similar to Transient Ischemic Attacks (TIAs), characterized by memory and cognitive disturbances. During her recent hospitalization, there was a concern for possible seizure activity, as she had episodes of unresponsiveness devoid of convulsive mo vements. An Electroencephalography (EEG) test was recommended for further assessment. An ongoing concern involves monitoring her kidney function, as a potential kidney disease was diagnosed during the hospitalization. There is also a past event of altered memory following a stressful episode caring for her several years ago. [facility] Medical History (Updated 12/28/24 @ 15:39 by Misael Guerrero MD) Osteoarthritis Hypertension Migraine Encephalopathy Vivid dream Hallucinations Mild cognitive impairment Poor sleep hygiene Asthma Mild cognitive disorder GERD (gastroesophageal reflux disease) Bacteremia History of upper gastrointestinal bleeding (~08/2021) History of TIA (transient ischemic attack) (~2018) Osteopenia (~2012) Atrial fibrillation with RVR Bilateral pulmonary embolism (~06/2023) Moderate persistent asthma Surgical History History of basal cell carcinoma (BCC) excision History of esophagogastroduodenoscopy (EGD) History of colonoscopy Family History Father No problems noted. Mother Cerebral brain hemorrhage Social History Household Members: None Housing: Apartment Do you presently have visiting nurse or other home services: No Alcohol intake: current Alcohol intake frequency: does not drink Patient Tobacco Use Status: Never used Tobacco e-Cigarette/Vaping Use: Never Used Second Hand Smoke Exposure: Yes Advance Directives Date on File: 09/15/21 service: No Current occupational status: retired Gender identity: Female Cognitive needs: No Hearing needs: No Vision needs: Yes Review of Systems Narrative - Neurology: Reports dizziness prior to collapse; possible seizure-like activity with non-convulsive unresponsiveness; history of TIAs. - Musculoskeletal: Reports issues due to lymphedema affecting ambulation. - Genitourinary: Reports diagnosis of possible kidney disease during hospitalization. - Infectious Disease: Diagnosed with sepsis during hospitalization. - General: Reports dehydration during hospitalization. Physical Exam Neuro Other: Mental Status: Alert and oriented to person, place, and time. Normal attention. Normal spontaneous speech, fluency, and comprehension. Cranial Nerves: CN II: Visual shore full to confrontation, visual acuity intact. CN III, IV, : Pupils equal, round, reactive to light and accommodation. Extraocular movements are normal. CN V: Facial sensation is normal. CN VII: Facial movements symmetrical. CN VIII: Hearing intact to bedside conversation is normal. CN IX, X: Palate elevates symmetrically. CN XI: Shoulder shrug and head turn symmetrical. CN XII: Tongue midline without atrophy or fasciculations. Extrapyramidal: Full facial expressions and blinking. No rigidity. Movements are appropriate with no tremor or abnormality. Speech: Normal; no dysarthria or tremor. Assessment & Plan Assessment & Plan (1) Mild cognitive disorder: Comment: ACR Abs at [facility] [place] in 2016: [place]. Code(s): F09 - Unspecified mental disorder due to known physiological condition Category: Medical (2) Migraine: Code(s): G43.909 - Migraine, unspecified, not intractable, without status migrainosus Category: Medical Qualifiers: Migraine type: migraine (< 15 days per month) without aura Status migrainosus presence: without status migrainosus Intractability: not intractable Qualified Code(s): G43.009 - Migraine without aura, not intractable, without status migrainosus (3) Complex partial seizure disorder: Comment: Routine EEG at [facility] in Nov 2024: WNL Routine EEG at off in Nov 2022: WNL Routine EEG at office in Feb 2020: slow MRI brain at [facility] [place] [facility] in July 2014: mild PT atrophy Code(s): G40.209 - Localization-related (focal) (partial) symptomatic epilepsy and epileptic syndromes with complex partial seizures, not intractable, without status epilepticus Category: Medical Qualifiers: Intractability: not intractable Status epilepticus: without status epilepticus Epilepsy type: partial symptomatic Qualified Code(s): G40.209 - Localization-related (focal) (partial) symptomatic epilepsy and epileptic syndromes with complex partial seizures, not intractable, without status epilepticus Plan Impression recommendations: 84 years old woman with multiple episodes of unresponsiveness or passing out suggestive of seizure disorder. A recent routine EEG was okay. I have requested 48 hour ambulatory EEG for better definition. Orders: Orders EEG 48hr Ambulatory Today G40.209 - Localization-related (focal) (partial) symptomatic epilepsy and epileptic syndromes with complex partial seizures, not intractable, without status epilepticus Coding Level of Care Code Est Pt Level 4 (39864) Diagnoses Mild cognitive disorder F09 Migraine without aura and without status migrainosus, not intractable G43.009 Migraine type: migraine (< 15 days per month) without aura Status migrainosus presence: without status migrainosus Intractability: not intractable Partial symptomatic epilepsy with complex partial seizures, not intractable, without status epilepticus G40.209 Intractability: not intractable Status epilepticus: without status epilepticus Epilepsy type: partial symptomatic
--- OUTSIDE RECORDS SUMMARY | 2024-12-28 18:22 | XMS_ITS | Patient Health Record ---
[facility] Address [address] [place] [address] Care Team Providers Care Bar Turner Name Role Phone Cesar ENGLISH, [facility] Primary Care Provider Aman Pittman Unavailable [phone] Allergies Allergen (clinical drug ingredient) Drug/Non Drug [...] atherosclerosis of arteries of lower limbs (disorder) (47254737202118337 ) Unspecified atherosclerosis of [place] arteries of extremities, bilateral legs (I70.203) Active confirmed Problem Lymphedema (11144665) Lymphedema (I89.0) Active confirmed Plan Of Treatment Pending Test Test Name Order Date X ray : Foot, left 2V 05/29/2011 X ray : Foot, right 2V 05/29/2011 *Liver Function Test (LFT) 09/27/2017 X ray : Foot, left 3V 06/05/2014 28683-DTURCJR NAIL, 6 OR MORE 05/22/2014 40343-VLQKSFF NAIL, 6 OR MORE 04/21/2013 93663-LSOZBYF NAIL, 6 OR MORE 07/28/2013 87103-XSETRSQ NAIL, 6 OR MORE 11/14/2013 35604-CJWTIPS NAIL, 6 OR MORE 02/09/2014 53340-DYYZTCV NAIL, 6 OR MORE 09/10/2014 32452-YYDNSZI NAIL, 6 OR MORE 11/30/2014 29325-QDSXMRK NAIL, 6 OR MORE 03/01/2015 34589-UHOIUIE NAIL, 6 OR MORE 05/24/2015 44391-SBTPAWN NAIL, 6 OR MORE 08/16/2015 54589-PZLHSUF NAIL, 6 OR MORE 11/22/2015 32620-EEQZKKG NAIL, 6 OR MORE 02/11/2016 57702-KQZHHOQ NAIL, 6 OR MORE 04/05/2012 70483-LYKQVLT NAIL, 6 OR MORE 10/23/2011 66990-FDHBIPJ NAIL, 6 OR MORE 01/05/2012 90998-AMOFAPI NAIL, 6 OR MORE 07/12/2012 87210-PZZPCNT NAIL, 6 OR MORE 10/14/2012 95910-EQCNNNL NAIL, 6 OR MORE 01/13/2013 00865-TAYEADJ NAIL, 6 OR MORE 08/14/2011 98700-WUANIZY NAIL, 6 OR MORE 05/29/2011 26525-MHPBCIV NAIL, 6 OR MORE 11/18/2010 59541-CBVLMQR NAIL, 6 OR MORE 09/27/2017 25755-ZDATNOC NAIL, 6 OR MORE 05/29/2016 56817-KABONTQ NAIL, 6 OR MORE 08/28/2016 83647-NCHETJJ NAIL, 6 OR MORE 12/08/2016 41838-PZCLWZD NAIL, 6 OR MORE 03/09/2017 66691-PEUBRGU NAIL, 6 OR MORE 12/28/2017 33964-Ictp Destruction, -14 08/28/2016 67160-Rlky Destruction, -14 11/30/2014 90107-Ytxo Destruction, -14 11/18/2010 36653-Szff Destruction, -14 08/14/2011 12876-Svfo Destruction, -14 02/27/2011 94217-Wjqh Destruction, -14 05/29/2011 70931-Afbd Destruction, -14 01/13/2013 94215-Sjtv Destruction, -14 10/14/2012 79291-Hdtd Destruction, -14 07/12/2012 50016-Vgtf Destruction, -14 04/05/2012 75513-Glim Destruction, -14 10/23/2011 38393-Antf Destruction, -14 01/05/2012 24363-Wthf Destruction, -14 02/11/2016 08550-Lspt Destruction, -14 11/22/2015 14251-Eqcf Destruction, -14 08/16/2015 51319-Oxfh Destruction, -14 05/24/2015 06150-Blmz Destruction, -14 03/01/2015 65715-Wbka Destruction, -14 07/03/2014 20667-Hshx Destruction, -14 09/10/2014 38356-Abic Destruction, -14 07/28/2013 62614-Nqup Destruction, 1-14 04/21/2013 40523-Wioe Destruction, 1-14 05/22/2014 68774-Lkit Destruction, 1-14 11/14/2013 44358-Hmgs Destruction, 1-14 02/09/2014 91973-Jcmpsvyd Plate 07/03/2014 63136-Oevemcwi Plate 05/22/2014 51210-Qcgilaue Plate 04/21/2013 93797-Dlfxnvrj Plate 07/28/2013 16302-Bzyezufi Plate 02/09/2014 66945-Ggkynkdb Plate 11/14/2013 48076-Owcldudh Plate 09/10/2014 16343-Tkrigasy Plate 11/30/2014 92992-Ixyqjfvc Plate 04/05/2012 70129-Pflqhmta Plate 10/23/2011 93423-Xyojdhns Plate 01/05/2012 81449-Mulzgaxs Plate 07/12/2012 82537-Vwuixwpt Plate 01/13/2013 26915-Mplcgtmn Plate 05/29/2011 02754-Xayugubx Plate 02/27/2011 36421-Yfebhxkv Plate 11/18/2010 55159-EHCBSJF SKIN/TISSUE 05/22/2014 09549-RMZOKMH SKIN/TISSUE 06/05/2014 13089-HKJN SKIN LESIONS, OVER 4 03/01/19 16 17197-YCAQ SKIN LESIONS, OVER 4 05/24/19 16 42801-WELT SKIN LESIONS, OVER 4 08/16/19 16 02688-SZKP SKIN LESIONS, OVER 4 11/22/19 16 54385-TNFZ SKIN LESIONS, OVER 4 02/11/20 16 44167-SPJU SKIN LESIONS, OVER 4 09/28/19 18 43319-VOLO SKIN LESIONS, OVER 4 12/29/19 18 43081-PMEH SKIN LESIONS, OVER 4 12/09/19 17 57727-ISLG SKIN LESIONS, OVER 4 05/30/19 17 69469-ETYB SKIN LESIONS, OVER 4 08/29/19 17 72404-WKRR SKIN LESIONS, OVER 4 06/16/19 18 13900-IESZ SKIN LESIONS, OVER 4 03/09/19 18 73179-JWMO SKIN LESIONS, OVER 4 03/29/19 19 61687-CHCI SKIN LESIONS, OVER 4 07/09/19 19 48051-EPMR SKIN LESIONS, OVER 4 10/08/19 19 21132-QDGE SKIN LESIONS, OVER 4 01/07/20 19 17035-GXEQ SKIN LESIONS, OVER 4 04/07/19 20 04698-IDLL SKIN LESIONS, OVER 4 06/30/19 20 76316-PZJS SKIN LESIONS, OVER 4 09/29/19 20 82560-BSVF SKIN LESIONS, OVER 4 12/29/19 20 07949-ZVOE SKIN LESIONS, OVER 4 04/09/19 21 89526-VWVT SKIN LESIONS, OVER 4 07/06/19 21 73157-ASLE SKIN LESIONS, OVER 4 10/05/19 21 38175-QFWD SKIN LESIONS, OVER 4 01/04/20 21 65148-GAZV SKIN LESIONS, OVER 4 04/04/19 22 09234- Nail Unit Biopsy 06/15/2017 Insurance Providers Payer Name Payer Address Payer Phone Subscriber Number Group Number Insured Name Patient Relationship to Insured Coverage Start Date Coverage End Date Medicare [employer] [address] [place] [address] [id number] Madelyn Clark Self - patient is the insured Medical (General) History Medical History History ICD Code asthma chicken pox hypertension measles mumps mumps measles hypertension chicken pox asthma Cellulitis Diverticulitis Surgical History Surgery Date(Month/Year) oral surgery 11/05 skin cancer removal forehead 11/28/13 Dental Implant 05/08/15 Hospitalization History Reason Date(Month/Year) [facility]- bleeding ulcers 09/08-09/14 [facility] couldn't open her eye 07/2018 [facility], Diverticulitis 07/16/16-07/20/16 [facility] for Dental implant 05/08/15 MRI, TIA, MRA 08/06 oral surgery 11/05
--- OUTSIDE RECORDS SUMMARY | 2024-12-28 18:23 | XMS_ITS | Patient Health Record ---
Author Organization [facility] Address [address] [place] [phone] Care Team Providers Care Perinatal Specialist Name Role Phone Cesar ENGLISH, Asma Primary Care Provider Aries Rose [phone] Allergies Allergen (clinical drug ingredient) Drug/Non Drug Allergy documented on EMR Reaction Allergy Type Onset Date Status penicillamine Penicillamine Unknown Drug Allergy Active amoxicillin Amoxicillin Unknown Drug Allergy Act teena Reason For Referral No Information Medications Medication [...] Problem Screening for malignant neoplasm of colon (780942194) Encounter for screening for malignant neoplasm of colon (Z12.11) Active confirmed Problem Diarrhea (73433346) Diarrhea (R19.7) Active confirmed Problem Iron deficiency anemia (37997880) Iron deficiency anemia (D50.9) Active confirmed Problem Gastrointestinal hemorrhage (82379682) UGI bleed (K92.2) Active confirmed Problem Gastroesophageal reflux disease (183444532) GERD (gastroesophag eal reflux disease) (K21.9) Active confirmed Problem Diarrhea (85233829) Diarrhea, unspecified type (R19.7) Active confirmed Problem Collagenous colitis (17616744) Collagenous colitis (K52.831) Active confirmed Problem Gastric ulcer (496115737) Gastric ulcer (K25.9) Active confirmed Problem History of gastric ulcer (538940847) History of gastric ulcer (Z87.19) Active confirmed Problem Gastroesophageal reflux disease (disorder) (247581896) Chronic GERD (K21.9) Active confirmed Vital Signs Temperature 98.4 degrees Fahrenheit 06/07/2024 Blood pressure diastolic 01 mm Hg 06/07/2024 Height 67 in 06/07/2024 Blood pressure systolic 001 mm Hg 06/07/2024 Weight 208 lbs 06/07/2024 BMI 32.57 kg/m2 06/07/2024 Procedures Procedure Date Ordered Date Performed Result Body Sit e UPPER GI ENDOSCOPY 06/07/2024 N/A COLONOSCOPY 06/07/2024 N/A Encounters Encounter Location Date Provider Diagnosis [facility] [address] [place] [phone] 06/07/2024 Aries Hernández Iron deficiency anemia D50.9 ; GERD (gastroesophageal reflux disease) K21.9 and History of gastric ulcer Z87.19 [facility] [address] [place] [phone] 2024 Aries Hernández [facility] [address] [place] [phone] 08/03/2024 Aries Hernández [facility] [address] [place] [phone] 08/04/2024 Aries Hernández Assessments Encounter Date Diagnosis (ICD [...] ulcer (ICD-10 - Z87.19) Plan Of Treatment Pending Test Test Name Order Date UPPER GI ENDOSCOPY 06/07/2024 COLONOSCOPY 06/07/2024 CBC w DIFF 06/07/2024 IRON PROFILE 06/07/2024 Ferritin 06/07/2024 Future Test Test Name Order Date COLONOSCOPY 01/17/2019 Insurance Providers Payer Name Payer Address Payer Phone Subscriber Number Group Number Insured Name Patient Relationship to Insured Coverage Start Date Coverage End Date MEDICARE [place] [address] [place] [address] [id number] ANGI DREW Self - patient is the insured 7 [employer] CLAIMS [address] [place] [address] [id number] ANGI DREW Self - patient is the insured [...]
== END 2024-12-28 15:42 | disposition home or self-care (01) ==
LOC: HO.HSM 15:26
PROVIDERS: PCP Internal Medicine; Visit Provider Psychiatry & Neurology Neurology
DX: R41.89 Other symptoms and signs involving cognitive functions and awareness (principal); G43.009 Migraine without aura, not intractable, without status migrainosus; G40.209 Localization-related (focal) (partial) symptomatic epilepsy and epileptic syndromes with complex partial seizures, not intractable, without status epilepticus
CPT/HCPCS: 99214

== ENCOUNTER → 2024-12-28 15:25 | Outpatient (BNVA) | payer MEDICARE, SELFPAY | PROVIDERS: PCP Internal Medicine; Visit Provider Psychiatry & Neurology Neurology | DX: G40.209 Localization-related (focal) (partial) symptomatic epilepsy and epileptic syndromes with complex partial seizures, not intractable, without status epilepticus (principal); F09 Unspecified mental disorder due to known physiological condition; G43.009 Migraine without aura, not intractable, without status migrainosus | CPT/HCPCS: 99212 ==